=== PATIENT | male | born 1960 | race Caucasian/White ===

== ENCOUNTER 2024-03-01 08:50 | Emergency (ER) | payer MEDICARE, SELFPAY ==
--- NOTE | ~2024-03-01 | CT_ITS ---
EXAMINATION: CT brain wo con DATE: 03/01/2024 12:39 INDICATION: Right eye vision change. TECHNIQUE: Computed tomography (CT) of the head was performed without intravenous contrast. The mA wa s adjusted according to patient size. Iterative reconstruction technique was employed. The dose-lengt h product was 756.67 mGy-cm. COMPARISON: None FINDINGS: There is no intracranial hemorrhage, acute infarction, or abnormal intracranial mass lesion . The ventricles are normal in size. The orbits are normal. There is mild mucosal thickening in the p aranasal sinuses. The mastoid air cells are normal. IMPRESSION: 1. Normal brain. Reviewed, dictated and finalized at location A. OR CARE SPECIALIST IMPRESSION: 1. Normal brain.
[2024-03-01 08:55] VITALS: BP 156/85; PULSE 66; RESP 16; TEMP 36.7; O2SAT 99
--- NOTE | 2024-03-01 10:47 | ED.EYEPROB ---
HPI - Eye Problem General Chief complaint: Eye Problems <Michelle Burks PA-C - Last Filed: 03/02/24 10:36> Stated complaint: visual disturbances <Michelle Burks PA-C - Last Filed: 03/02/24 10:36> Time Seen by Provider: 03/01/24 10:47 <Michelle Burks PA-C - Last Filed: 03/02/24 10:36> Focused HPI: This is a 63 year old male that presents to the ER for visual changes. Ongoing since yesterday. Reports floaters in the right eye. Ongoing since yesterday. Reports it has worsened today. He wears glasses and a contact in his left eye. GENERAL: Well-appearing, well-nourished, and in no acute distress. HEAD: Normocephalic, atraumatic. CHEST: Clear to auscultation. ?No respiratory distress. HEART: Regular rate and rhythm.? NEURO: ?Alert and oriented x3. Patient screened in triage and initial orders placed.? ?Additional care and disposition to be based upon?diagnostic testing and treatment. <Michelle Burks PA-C - Last Filed: 03/02/24 10:36> History of Present Illness HPI Narrative: Agree with the HPI above, I would liked at the patient states that his visual field feels like a curtain is being drawn over at and has a sharp cutoff near the midway point of his visual axis with everything above it being very dark with spots of blackness. Inferior to this he has clear vision at his baseline 20/50 vision. This is localized to the right eye. No peripheral deficits. No headache. States he has a history of floaters but nothing like this has ever happened to him your no restraint of glaucoma. No trauma or injuries. <Miles Dominguez MD - Last Filed: 03/01/24 21:48> Related Data Allergies/adverse reactions: Allergies Allergy/AdvReac Type Severity Reaction Status Date / Time No Known Allergies Allergy Verified 03/01/24 12:56 <Mihcelle Burks PA-C - Last Filed: 03/02/24 10:36> Review of Systems Review of Systems: As reviewed above in HPI <Miles Dominguez MD - Last Filed: 03/01/24 21:48> PMFSH Past Medical History Medical History: Medical History (Updated 03/02/24 @ 10:36 by Michelle Burks PA-C) History of atrial fibrillation History of hyperlipidemia <Michelle Burks PA-C - Last Filed: 03/02/24 10:36> Social History Social History: Social History (Updated 03/02/24 @ 10:35 by Michelle Burks PA-C) Substance use: never <Michelle Burks PA-C - Last Filed: 03/02/24 10:36> Exam Narrative: GENERAL: [Well-appearing, well-nourished, and in no acute distress.] HEAD: [Normocephalic, atraumatic.] EYES: [PERRLA and EOMI.] 20/50 vision OU. ENT: Nares clear, no rhinorrhea or epistaxis. Mucous membranes moist. NECK: Supple. CHEST: [Clear to auscultation. No respiratory distress.] HEART: [Regular rate and rhythm]. No murmur heard. [Normal peripheral pulses.] ABDOMEN: [Soft, nondistended], [nontender], [No rigidity or guarding] EXTREMITIES: Normal range of motion. [No edema.] SKIN: Warm, dry, no rash. NEURO: [No focal deficits]. Alert and oriented [x3.] PSYCH: [Normal mood and affect.] <Miles Dominguez MD - Last Filed: 03/01/24 21:48> Course Vital Signs Vital signs: Vital Signs Temperature 98.0 F 03/01/24 08:55 Pulse Rate 66 03/01/24 08:55 Respiratory Rate 16 03/01/24 08:55 Blood Pressure 156/85 H 03/01/24 08:55 Pulse Oximetry 99 03/01/24 08:55 Oxygen Delivery Room Air 03/01/24 08:55 Temperature 98.0 F 03/01/24 08:55 Pulse Rate 86 03/01/24 13:44 Respiratory Rate 16 03/01/24 13:44 Blood Pressure 149/86 H 03/01/24 13:44 Pulse Oximetry 99 03/01/24 13:44 Oxygen Delivery Room Air 03/01/24 08:55 <Michelle Burks PA-C - Last Filed: 03/02/24 10:36> Vital Signs Temperature 98.0 F 03/01/24 08:55 Pulse Rate 66 03/01/24 08:55 Respiratory Rate 16 03/01/24 08:55 Blood Pressure 156/85 H 03/01/24 08:55 Pulse Oximetry 99 03/01/24 08:55 Oxygen Delivery Room Air 03/01/24 08:55 Temperature 98.0 F 03/01/24 08:55 Pulse Rate 86 03/01/24 13:44 Respiratory Rate 16 03/01/24 13:44 Blood Pressure 149/86 H 03/01/24 13:44 Pulse Oximetry 99 03/01/24 13:44 Oxygen Delivery Room Air 03/01/24 08:55 <Miles Dominguez MD - Last Filed: 03/01/24 21:48> Procedures Other Procedure Procedure 1: Other Procedure: Bedside ultrasound: Right ocular Indication: Vision loss Tegaderm was applied and light pressure was used to view the right orbit and multiple visual axis he has. He does have what appears to be a linear streak that is off the fovea in the posterior right I just above the attachment point to the optic nerve. There also appears to be debris in the posterior vitreous area near the streak artifact. Concern for a retinal detachment. Patient tolerated procedure well without complication <Miles Doimnguez MD - Last Filed: 03/01/24 21:48> MDM - Eye Problem MDM Narrative Medical decision making narrative: 63-year-old male presenting with right eye vision loss. He describes a carton sensation drawn over his right eye with floaters throughout his visual field and superior visual access above the midpoint is dark with spots. Inferior to this on the right eye he states he has clear vision. He has 20/50 OU vision without any changes from his baseline according to himself. The visual floaters are new as well as the cart and drawing sensation. He denies any headache, trauma or injuries. He states that he knows that get worse yesterday after he was shoveling snow. He is not in any acute distress and has normal vital signs aside for some stable hypertension. No tachycardia, fever, hypoxia. Present concerns potentially for retinal detachment given the localized findings in the right eye. Intracranial pathology such as stroke her optic nerve involvement is very unlikely. Bedside ultrasound was conducted and detailed above which shows signs and symptoms of potential retinal detachment with macula off findings and even some debris in the posterior vitreous humor. Patient CT head shows no acute intracranial findings. I discussed with the patient multiple times the findings and plan of care right now is to discuss with ophthalmology at [facility] further recommendations. I was connected with the ophthalmology resident over at [facility] and we spoke over the phone regarding patient's imaging findings, clinical assessment and ultrasound results. I relayed the images to him over text message without identifiers and confirms that patient could very well have a retinal detachment with recommendations to transfer to the emergency department as a time critical action. I was connected with the emergency department physician Dr. Brizuela and we went over patient's case and he accepted the transfer at this time. Patient preferred to go by private vehicle however later this was not an option secondary to patient's family not be able to drive in the weather. Ambulance services were arranged. Patient left the department without any further incident as a direct transfer to the emergency department at [facility] for ophthalmology evaluation. <Miles Dominguez MD - Last Filed: 03/01/24 21:48> Medical Records Attestation: I reviewed the patient's medical records. <Miles Dominguez MD - Last Filed: 03/01/24 21:48> Lab Data Attestation: I reviewed the patient's lab results. <Miles Dominguez MD - Last Filed: 03/01/24 21:48> Imaging Data Attestation: I personally reviewed and interpreted this imaging study as follows: <Miles Dominguez MD - Last Filed: 03/01/24 21:48> My impression: Impressions Head CT 03/01/24 12:40 IMPRESSION: 1. Normal brain. <Miles Dominguez MD - Last Filed: 03/01/24 21:48> Critical Care Time Critical Care Time Critical Care Time: Yes <Miles Dominguez MD - Last Filed: 03/01/24 21:48> Total Critical Care Time: 35 <Miles Dominguez MD - Last Filed: 03/01/24 21:48> Discharge Plan Discharge Clinical Impression: Retinal detachment Qualifiers: Laterality: right Qualified Code(s): H33.21 - Serous retinal detachment, right eye Floaters in visual field Qualifiers: Laterality: right Qualified Code(s): H43.391 - Other vitreous opacities, right eye <Michelle Burks PA-C - Last Filed: 03/02/24 10:36> Patient Disposition: [facility] <Michelle Burks PA-C - Last Filed: 03/02/24 10:36> Condition: Serious <Michelle Burks PA-C - Last Filed: 03/02/24 10:36> Patient Language: Sammarinese <Michelle Burks PA-C - Last Filed: 03/02/24 10:36> Follow-up/Referrals: PHYSICIAN NOT ON STAFF,NONSTAFF [Non-Staff] - <Michelle Burks PA-C - Last Filed: 03/02/24 10:36> Time of Disposition: 16:30 <Michelle Burks PA-C - Last Filed: 03/02/24 10:36> 16:30 <Miles Dominguez MD - Last Filed: 03/01/24 21:48>
[2024-03-01 13:44] VITALS: BP 149/86; PULSE 86; RESP 16; O2SAT 99
--- OUTSIDE RECORDS SUMMARY | 2024-03-07 21:55 | XMS_ITS | Encounter Summary ---
Author Organization [facility] Address [address] [address] Care Team Providers Care Sewing Techniques Demonstrator Name Role Phone Stephanie Prasad RN Unavailable [phone] Lan Bragg DO Unavailable Elias Mayorga MD Primary Care Provider [phone] Elias Mayorga MD Unavailable [phone] Reason for Visit * Reason Onset Date Comments Returned Call 02/01/2024 Encounter Details Date Type Department Care Team (Late st Contact Info) Description 02/01/2024 Telephone [facility] [address] [place] [address], [address] [phone] Heriberto Penn, RN Returned Call Social History Tobacco Use Types Packs/Day Years Used Date Smoking Tobacco: Never Smokeless Tobacco: Never Alcohol Use Standard Drinks/Week Comments Yes 0.8 (1 standard drink = 0.6 oz p ure alcohol) 2 beers a day PHQ-2 Answer Date Recorded Patient Health Questionnaire-2 Score 0 01/30/2024 Sex and Gender Information Value Date Recorded Sex Assigned at Not on file Gender Identity Not on file Sexual Orientation Not on file documented as of this encounter Functional Status Functional Status Response Date of Assess ment Is person deaf or have serious hearing difficult y? No 06/16/2015 Is person blind or have serious difficulty seein g? No 06/16/2015 Does person have serious dif ficulty walking/climbing stairs? No 06/16/2015 Does person have difficulty dressing/bathing? No 06/16/2015 Does person have difficulty doing errands alone? No 06/16/2015 Cognitive Status Response Date of Assessm ent Does person have difficulty concentrating/remembering/making decisions? No 06/16/2015 documented as of this encounter Miscellaneous Notes * Telephone Encounter - Heriberto Penn, RN - 02/01/2024 10:43 AM HOOP RIVETING MACHINE OPERATOR Returned pt call using 2 pt identifiers. Informed pt I spoke with SHIFT SUPERVISOR MELTING Santana who saw him on 01/29. She reviewed chart and told this RN nothing else would be indicated at this time she suggested he finish his Rx and if symptoms are not resolved to return to or follow up with PCP. Reminded pt also he may take longer to resolve since he has Strep and Covid together. Pt verbalized understanding. RIVETING MACHINE OPERATOR documented in this encounter Plan of Treatment Upcoming Encounters Date Type Department Care Team (Late st Contact Info) Description 03/22/2024 9:00 AM HOOP RIVETING MACHINE OPERATOR Office Visit [facility] - Ophthalmology [address] [place] [phone] Ernesto Hawkins MD [address] [place] [phone] documented as of this encounter Visit Diagnoses Not on filedocumented in this encounter Additional Health Concerns Infection Onset Date Last Indicated Resolved Time COVID-19 Confirmed 01/30/2024 01/30/2024 4:33 AM HOOP RIVETING MACHINE OPERATOR documented as of this encounter Care Teams Sewing Techniques Demonstrator Relationship Specialty Start Date End Date Elias Mayorga MD [address] [place] [address] PCP - General Internal Medicine 09/07/14 Elias Mayorga MD [address] [place] [address] PCP - Attributed-[facility] 10/25/22 Stephanie Prasad RN [address] [place] [address] Doctor Of Chiropractic 10/06/13 Lan Bragg DO [address] [place] [address] Orthopedic Surgery 06/02/14 documented as of this encounter
--- OUTSIDE RECORDS SUMMARY | 2024-03-07 21:55 | XMS_ITS | Encounter Summary ---
Author Organization [facility] Address [address] [place] [address] Care Team Providers Care Parboiler Name Role Phone Stephanie Prasad RN Unavailable [phone] Lan Bragg DO Unavailable Elias Mayorga MD Primary Care Provider [phone] Elias Mayorga MD Unavailable [phone] Encounter Details Date Type Department Care Team (Latest Contact Info) Description 08/06/2022 Travel Social History Tobacco Use Types Packs/Day Years Used Date Smoking Tobacco: Never Smokeless Tobacco: Never Alcohol Use Standard Drinks/Week Comments Yes 0.8 (1 standard drink = 0.6 oz p ure alcohol) 2 beers a day PHQ-2 Answer Date Recorded PHQ2 TOTAL SCORE 0 01/17/2021 Sex and Gender Information Value Date Recorded Sex Assigned at Not on file Gender Identity Not on file Sexual Orientation Not on file COVID-19 Exposure Response Date Recorded In the last 10 days, have yo u been in contact with someone who was confirmed or suspected to have Coronavirus/COVID-19? No / Unsure 08/06/2022 1:51 PM CDT documented as of this encounter Functional Status [...] No 06/16/2015 documented as of this encounter Plan of Treatment Upcoming Encounters Date Type Department Care Team (Late st Contact Info) Description 03/22/2024 9:00 AM WIRE REPAIRER Office Visit [facility] - Ophthalmology [address] [place] [phone] Ernesto Hawkins MD [address] [place] [address] documented as of this encounter Visit Diagnoses Not on filedocumented in this encounter Care Teams Parboiler Relationship Specialty Start Date End Date Elias Mayorga MD [address] [facility] [address] [place] [address] PCP - General Internal Medicine 09/07/14 Elias Mayorga MD [address] [place] [address] PCP - Attributed-[facility] 08/25/19 08/12/22 Stephanie Prasad, RN [address] [place] [address] Spinning Frame Changer 10/06/13 Lan Bragg DO [address] [place] [address] Orthopedic Surgery 06/02/14 documented as of this encounter
--- OUTSIDE RECORDS SUMMARY | 2024-03-07 21:55 | XMS_ITS | Clinical Summary ---
Author Organization [facility] Address [address] [place] [address] Care Team Providers Care Patient Service Technician Pst Name Role Phone Stephanie Prasad RN Unavailable [phone] Lan Bragg DO Unavailable Elias Mayorga MD Primary Care Provider [phone] Elias Mayorga MD Unavailable [phone] Source Comments [facility],non-owned Affiliates and Associated Physician Practices is amultiple site organization consisting of ambulatory clinics and hospital sitesin [place], [place], [place] and [place]. This disclosure is being madepursuant to the Care Everywhere program and may not contain all information available regarding this patient. Last updated 17.[facility] Heatmaps Allergies Active Allergy Reactions Criticality Noted Date Comments Naproxen GI Discomfort Low 04/11/2011 Medications * Be aware that medications may not be up to date on this document. Alwaysverify current medications with the patient. Medication Sig Dispensed Refills Start Date End Date Status rosuvastatin (CRESTOR) 10 MG tablet Take 1 (one) tablet by mouth at bedtime Active B Complex Vitamins (VITAMIN B COMPLEX PO) Active Eliquis 5 MG tablet TAKE 1 TABLET BY MOUTH TWICE DAILY 60 tablet 3 01/25/2022 Active ALPRAZolam (Xanax) 0.5 MG tablet Take 1 (one) tablet by mouth at bedtime 09/01/2022 Active flecainide (Tambocor) 150 MG tablet Take 1 (one) tablet by mouth 2 times daily 180 tablet 3 09/20/2022 Active sildenafil (Viagra) 100 MG tablet Take 1 (one) tablet by mouth once as needed 11/11/2023 Active amoxicillin (Amoxil) 500 MG tablet Take 1 (one) tablet by mouth 2 times daily for 10 days 20 tablet 01/30/2024 02/09/2024 Active Problems Problem Noted Date Diagnosed Date Palpitations 11/23/2018 Status post placement of implantable loop record er 06/16/2015 PAF (paroxysmal atrial fibrillation) 11/10/2014 Premature atrial contractions 08/31/2014 SVT (supraventricular tachycardia) 07/28/2014 Trochanteric bursitis 06/14/2014 History of atrial flutter 04/18/2014 Chronic anticoagulation 04/18/2014 Encounter for monitoring flecainide therapy 03/28 Atrial flutter 12/30/2013 Resolved Problems Problem Noted Date Diagnosed Date Resolved Date S/P ablation of atrial flutter 01/11/2014 06/23/2020 Overview (04/21/2014): [place]; Successful and uncomplicated ablation of typical atrial flutter circuit, Encounters Date Type Department Care Team Description 03/02/2024 10:15 AM [facility] Clinical Support [facility] - Ophthalmology [facility] [place] [address] Ernesto Hawkins MD Epiretinal membrane (ERM), bilateral (Primary Dx); PVD (posterior vitreous detachment), right 03/02/2024 9:30 AM [facility] Office Visit [facility] - Ophthalmology [address] [place] [phone] PVD (posterior vitreous detachment), right (Primary Dx); Epiretinal membrane (ERM), bilateral; Cataract of both eyes, unspecified cataract type; Floaters in visual field, right 03/02/2024 Travel 03/01/2024 5:05 PM WIRE HARNESS DESIGN ENGINEER - 03/01/2024 9:41 PM [facility] Emergency [facility] EMERGENCY [facility]PARTMENT [address] [place] [phone] Riley Verduzco MD Vitreous floaters of right eye (Primary Dx); Visual disturbance Discharge Disposition: Home or Self Care 03/01/2024 Ophth Exam [facility] - Ophthalmology [address] [place] [address] Gab Collins MD 03/01/2024 Travel 03/01/2024 Telephone [facility] - Ophthalmology [address] [place] [phone] Gagan Denton, DO Eye Problem 02/01/2024 Telephone [facility] Health Urgent Care [address], [address] [place] [address] Heriberto Babcock, RN Returned Call 02/01/2024 Telephone [facility] Health Urgent Care [address] [place] [address] Joelle Magana APRN-STORE STOCKER Med Question 01/30/2024 11:00 AM WIRE HARNESS DESIGN ENGINEER - 01/30/2024 11:59 PM WIRE HARNESS DESIGN ENGINEER Hospital Encounter [facility] Health [facility]gent [facility] [address] [place] [address] Julieta Dillon, RONEL-STORE STOCKER Discharge Disposition: Home or Self Care 01/30/2024 Travel from Last 3 Months Immunizations Name Administration Dates Next Due Covid Pfizer primary monoval ent 12+ yr 0.3mL Purple cap 03/08/2020,02/17/2020 Family History Medical History Relation Name Comments CAD (Coronary Artery Disease) Father Cancer - Prostate Father Hypertension Mother Relation Name Status Comments Father Mother Social History Tobacco Use Types Packs/Day Years Used Date Smoking Tobacco: Never Smokeless Tobacco: Never Tobacco Cessation:Counseling Given: Not Answered Alcohol Use Standard Drinks/Week Comments Yes 0.8 (1 standard drink = 0.6 oz p ure alcohol) 2 beers a day PHQ-2 Answer Date Recorded Patient Health Questionnaire-2 Score 0 01/30/2024 Sex and Gender Information Value Date Recorded Sex Assigned at Not on file Gender Identity Not on file Sexual Orientation Not on file Last Filed Vital Signs Vital Sign Reading Time Taken Comments Blood Pressure 138/90 03/01/2024 9:40 PM WIRE HARNESS DESIGN ENGINEER Pulse 68 03/01/2024 9:40 PM WIRE HARNESS DESIGN ENGINEER Temperature 36.8 ??C (98.2 ??F) 03/01/2024 4:59 PM CS T Respiratory Rate 15 03/01/2024 9:40 PM WIRE HARNESS DESIGN ENGINEER Oxygen Saturation 98% 03/01/2024 9:40 PM WIRE HARNESS DESIGN ENGINEER Inhaled Oxygen Concentration - - Weight 79.4 kg (175 lb) 01/30/2024 11:58 AM WIRE HARNESS DESIGN ENGINEER Height 172.7 cm (5' 8 ) 09/11/2023 7:03 PM CDT Body Mass Index 26.61 09/11/2023 7:03 PM CDT Plan of Treatment Upcoming Encounters Date Type Department Care Team (Late st Contact Info) Description 03/22/2024 9:00 AM WIRE HARNESS DESIGN ENGINEER Office Visit [facility] - Ophthalmology [address] [place] [phone] Ernesto Hawkins MD [address] [place] [phone] Health Maintenance Due Date Last Done Comments COLOGUARD (AGES 45-75) - COLON CA SCREENING 1960 CT COLONOGRAPHY - COLON CA SCREENING 1960 FIT - COLON CA SCREENING 1960 FLEX SIG - COLON CA SCREENING 1960 MEDICARE AWV ? 12 MONTHS 1960 HIV SCREENING 1973 HEPATITIS C SCREENING 11/22/1976 DTAP/TDAP/TD VACCINES (1 - Tdap) 1977 PNEUMOCOCCAL VACCINE 50+ (1 of 1 - PCV) 2008 ZOSTER VACCINE (1 of 2) 2008 Respiratory Syncytial Virus (RSV) Vaccine Pt: or over 60 yrs (1 - Risk 60-74 years 1-dose series) 2018 COVID-19 VACCINE ( season) 2023 11/17/2021, 07/05/2021, 11/29/2020, Additional history exists DEPRESSION SCREENING 02/25/2024 01/30/2024 COLON MONITORING 06/15/2025 06/16/2015, 06/16/2015 COLONOSCOPY - COLON CA SCREENING 06/15/2025 06/16/2015, 06/16/2015 Colorectal Cancer Screening 06/15/2025 SCREENING FOR DIABETES 09/10/2026 , 04/14/2022, 10/14/2020, Additional history exists INFLUENZA VACCINE Completed 12/18/2023 HEPATITIS B VACCINE Aged Out No longe r eligible based on patient's age to complete this topic HIB VACCINE Aged Out No longer eligi ble based on patient's age to complete this topic HPV VACCINE Aged Out No longer eligi ble based on patient's age to complete this topic MENINGOCOCCAL (Group B) VACCINE Aged Out No longer eligible based on patient's age to complete this topic MENINGOCOCCAL VACCINE Aged Out No kristine kevin eligible based on patient's age to complete this topic Procedures Procedure Name Priority Date/Time Associated Diagnosis Comments RETINAL ANALYSIS OCT Routine 03/02/2024 10:10 AM WIRE HARNESS DESIGN ENGINEER Epiretinal membrane (ERM), bilateral STREP A SCREEN - POCT (IP) URGENT CARE Routine 01/30/2024 12:09 PM WIRE HARNESS DESIGN ENGINEER Cough with exposure to COVID-19 virus SARS-COV-2 (COVID-19) AG (IP) POCT Routine 01/30/2024 12:08 PM WIRE HARNESS DESIGN ENGINEER Cough with exposure to COVID-19 virus COMPREHENSIVE METABOLIC PANEL STAT 09/11/2023 7:00 PM CDT ENDOSCOPY, COLON, SCREENING Routine 06/16/2015 8:27 AM CDT from Last 3 Months or Most Recently Relevant to Health Maintenance Results * RETINAL ANALYSIS OCT (03/02/2024 10:10 AM WIRE HARNESS DESIGN ENGINEER) Anatomical Region Laterality Modality Head External-Camera Photography Narrative 03/02/2024 11:59 AM WIRE HARNESS DESIGN ENGINEER Images from the original result were not included. OD: Trace none central ERM OS: Trace non central ERM Ernesto Hawkins MD OPHTHALMOLOGY [facility] ED ORD W PACS * (ABNORMAL) STREP A SCREEN - POCT (IP) URGENT CARE (01/30/2024 12:09 PM WIRE HARNESS DESIGN ENGINEER) Strep A Rapid POCT Positive(A ) Negative [facility] QC Verified Yes Yes [facility] Throat ENTIRE THROAT (SURFACE REGION OF NECK) / Unknown 01/30/2024 12:09 PM WIRE HARNESS DESIGN ENGINEER Julieta Dillon ASSISTANT PROFESSOR OF THEATER-STORE STOCKER LAB - POINT O F CARE ORDERABLES [facility] [address] [place] [address] * (ABNORMAL) SARS-COV-2 (COVID-19) AG (IP) POCT (01/30/2024 12:08 PM WIRE HARNESS DESIGN ENGINEER) SARS-CoV-2 Ag Positive(A) Negative [facility] Lot # [id number] [facility] Expiration Date [id number] [facility] Instrument Serial Number NA [facility] COVID Internal Control Acceptable Acceptable [facility] Microbiology SPECIMEN FROM NASAL FOSSAE / Unknown 01/30/2024 12:08 PM WIRE HARNESS DESIGN ENGINEER Narrative [facility] - 01/30/2024 12:11 PM WIRE HARNESS DESIGN ENGINEER SARS-CoV-2 antigen testing is authorized for use with nasal (Quidel, Veritor, BinaxNOW, or Madeline) or nasopharyngeal (Madeline) swabs collected from individuals who are suspected of COVID-19 infection by their healthcare provider within the first five days of onset of symptoms. ??False-positive SARS-CoV-2 test results are more likely to occur when disease prevalence is low (less than 1%). False-negative SARS-CoV-2 test results are more likely to occur when disease prevalence is high (greater than 10%). ?? This test has been authorized by the Food and Drug administration (FDA)under an Emergency??Use Authorization (EUA). This test is only authorized for the duration of time the declaration that circumstances exist justifying the authorization of emergency use of in vitro diagnostic tests for detection of SARS-CoV-2 virus and/or diagnosis of COVID-19 infection under section 564(b)(1) of the Act, 21 U.S.C 360bbb-3 (b)(1), unless the authorization is terminated or revoked sooner. Fact Sheets for this EUA assay are available upon request. Negative results should be treated as presumptive and confirmation with a molecular assay, if necessary, for patient management, may be performed. Negative results do not rule out COVID-19 and should not be used as the sole basis for treatment or patient management decisions, including infection control decisions. Negative results should be considered in the context of a patient's recent exposures, history and the presence of clinical signs and symptoms consistent with COVID-19. Julieta L Santana ASSISTANT PROFESSOR OF THEATER-STORE STOCKER LAB - POINT O F CARE ORDERABLES [facility] [address] [place] [address] * (ABNORMAL) COMPREHENSIVE METABOLIC PANEL (09/11/2023 7:00 PM CDT) Pathologist [facility] Glucose 88 70 - 105 mg/dL 09/11/2023 7:27 PM CDT [facility] Sodium 139 136 - 145 mmol/L 09/11/2023 7:27 PM CDT [facility] Potassium 4.3 3.5 - 5.1 mmol/L 09/11/2023 7:27 PM CDT [facility] Chloride 109(H) 98 - 107 mmol/L 09/11/2023 7:27 PM CDT [facility] CO2 19(L) 22 - 29 mmol/L 09/11/2023 7:27 PM CDT [facility] Calcium 9.3 8.4 - 10.4 mg/dL 09/11/2023 7:27 PM CDT [facility] Anion Gap 11 6 - 16 mmol/L 09/11/2023 7:27 PM CDT [facility] BUN 13 7 - 26 mg/dL 09/11/2023 7:27 PM CDT [facility] Creatinine 0.93 0.72 - 1.25 mg/dL 09/11/2023 7:27 PM CDT [facility] Alkaline Phosphatase 57 40 - 150 U/L 09/11/2023 7:27 PM CDT [facility] ALT 27 0 - 55 U/L 09/11/2023 7:27 PM CDT [facility] AST 28 5 - 34 U/L 09/11/2023 7:27 PM CDT [facility] Protein Total 7.3 6.4 - 8.3 gm/dL 09/11/2023 7:27 PM CDT [facility] Albumin 4.3 3.4 - 5.0 gm/dL 09/11/2023 7:27 PM CDT [facility] Bilirubin Total 0.5 0.2 - 1.2 mg/dL 09/11/2023 7:27 PM CDT [facility] eGFR by CKD-EPI >90 >=90 mL/min/1.7 3 m2 09/11/2023 7:27 PM CDT [facility] Blood BLOOD SPECIMEN / Unknown Venipuncture / Unknown 09/11/2023 7:00 PM CDT 09/11/2023 7:11 PM CDT Daniella Greenwood PA-C LAB - CHEMISTRY ORD ERABLES [facility] [address] [place] [address] * ENDOSCOPY, COLON, SCREENING (06/16/2015 8:27 AM CDT) Report Endoscopy POC _ Patient Name: Kenji Camara ?Procedure Date: 06/16/2015 8:27 AM ? Date of : 1960 ?Admit Type: Outpatient Age: 54 ? Gender: Male Attending MD: Shailesh Brar MD _ Procedure: ? Colonoscopy Indications: ? Screening for colorectal malignant neoplasm, This is the ? patient's first colonoscopy Providers: ? Shailesh Brar MD (Doctor) Referring MD: ?Elias Mayorga MD (Referring MD) Medicines: ? Monitored Anesthesia Care Complications: ? No immediate complications. Estimated blood loss: None. _ Procedure: ? Pre-Anesthesia Assessment: ? - Prior to the procedure, a History and Physical was ? performed, and patient medications and allergies were ? reviewed. The patient is competent. The risks and benefits ? of the procedure and the sedation options and risks were ? discussed with the patient. All questions were answered ? and informed consent was obtained. Patient identification ? and proposed procedure were verified by the physician, the ? nurse and the no bake molder in the procedure room. Mental ? Status Examination: alert and oriented. Airway ? Examination: normal oropharyngeal airway and neck ? mobility. Respiratory Examination: clear to auscultation. ? CV Examination: normal. Prophylactic Antibiotics: The ? patient does not require prophylactic antibiotics. Prior ? Anticoagulants: The patient has taken no previous ? anticoagulant or antiplatelet agents. ASA Grade ? Assessment: II - A patient with mild systemic disease. ? After reviewing the risks and benefits, the patient was ? deemed in satisfactory condition to undergo the procedure. ? The anesthesia plan was to use monitored anesthesia care ? (MAC). Immediately prior to administration of medications, ? the patient was re-assessed for adequacy to receive ? sedatives. The heart rate, respiratory rate, oxygen ? saturations, blood pressure, adequacy of pulmonary ? ventilation, and response to care were monitored ? throughout the procedure. The physical status of the ? patient was re-assessed after the procedure. ? After I obtained informed consent, the scope was passed ? under direct vision. Throughout the procedure, the ? patient's blood pressure, pulse, and oxygen saturations ? were monitored continuously. The Colonoscope was ? introduced through the anus and advanced to the cecum, ? identified by appendiceal orifice and ileocecal valve. The ? colonoscopy was performed without difficulty. The patient ? tolerated the procedure well. The quality of the bowel ? preparation was good. ? Findings: ? The digital rectal exam was normal. Pertinent negatives include no ? palpable rectal lesions. ? Non-bleeding internal hemorrhoids were found during retroflexion. The ? hemorrhoids were mild. ? The rectum, sigmoid colon, descending colon, transverse colon, ascending ? colon, cecum, appendiceal orifice and ileocecal valve appeared normal. ? A single small diverticulum was noted in the right colon. _ ? Impression: ?- Non-bleeding internal hemorrhoids. ? - The rectum, sigmoid colon, descending colon, transverse ? colon, ascending colon, cecum, appendiceal orifice and ? ileocecal valve are normal. ? - Single small diverticulum noted in the right colon. ? - No specimens collected. Recommendation: ?- Repeat colonoscopy in 10 years for surveillance. ? - High fiber diet ? - Return to primary care physician as previously scheduled. ? Procedure Code(s): ? --- Professional --- ? 77198, Colonoscopy, flexible; diagnostic, including collection of ? specimen(s) by brushing or washing, when performed (separate procedure) ? --- Technical --- ? 66797, Colonoscopy, flexible; diagnostic, including collection of ? specimen(s) by brushing or washing, when performed (separate procedure) Diagnosis Code(s): ? --- Professional --- ? K64.8, Other hemorrhoids ? Z12.11, Encounter for screening for malignant neoplasm of colon ? --- Technical --- ? K64.8, Other hemorrhoids ? Z12.11, Encounter for screening for malignant neoplasm of colon CPT copyright 2015 [employer]. All rights reserved. The codes documented in this report are preliminary and upon director rehabilitation program review may be revised to meet current compliance requirements. Dr. Shailesh Brar MD Shailesh Brar MD 06/16/2015 8:52:37 AM This report has been signed electronically. Number of Addenda: 0 Note Initiated On: 06/16/2015 8:27 AM [facility] ENDOSCOPY 06/16/2015 8:27 AM CDT Shailesh Brar MD GI PROCEDURE ORDERA BLES Performing Organization Address City/State/[facility] Co de Phone Number [facility] [place] [id number] from Last 3 Months or Most Recently Relevant to Health Maintenance Advance Directives * Full Code (Latest Code Status on File) Date Activated Date Inactivated Comments 09/07/2014 3:07 PM 09/07/2014 4:32 PM * Full Code Date Activated Date Inactivated Comments 07/19/2014 11:36 AM 07/20/2014 8:54 AM * Full Code Date Activated Date Inactivated Comments 01/11/2014 2:09 PM 01/11/2014 7:28 PM * Full Code Date Activated Date Inactivated Comments 10/06/2013 12:14 PM 10/07/2013 11:34 AM Care Teams Patient Service Technician Pst Relationship Specialty Start Date End Date Elias Mayorga MD [address] [place] [address] PCP - General Internal Medicine 09/07/14 Elias Mayorga MD [address] [place] [address] PCP - Attributed-[employer] STL 10/25/22 Stephanie Prasad RN [address] [place] [address] Machine Printer Hose 10/06/13 Lan Bragg DO [address] [place] [address] Orthopedic Surgery 06/02/14
--- OUTSIDE RECORDS SUMMARY | 2024-03-07 21:55 | XMS_ITS | Encounter Summary ---
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 orureterolithiasis. Fecal retention, no bowel obstruction or inflammatory process evident. > Interpreting Provider: Pepito Montanez MD on 09/11/2023 8:42 PM Daniella Greenwood PA-C CT ORDERABLES * (ABNORMAL) COMPREHENSIVE METABOLIC PANEL (09/11/2023 7:00 PM CDT) Glucose 88 70 - 105 mg/dL 09/11/2023 7:27 PM CDT [facility] Sodium 139 136 - 145 mmol/L 09/11/2023 7:27 PM CDT [facility] Potassium 4.3 3.5 - 5.1 mmol/L 09/11/2023 7:27 PM CDT [facility] Chloride 109(H) 98 - 107 mmol/L 09/11/2023 7:27 PM CDT [facility] CO2 19(L) 22 - 29 mmol/L 09/11/2023 7:27 PM CDT [facility] Calcium 9.3 8.4 - 10.4 mg/dL 09/11/2023 7:27 PM CDT [facility] Anion Gap 11 6 - 16 mmol/L 09/11/2023 7:27 PM CDT [facility] BUN 13 7 - 26 mg/dL 09/11/2023 7:27 PM CDT [facility] Creatinine 0.93 0.72 - 1.25 mg/dL 09/11/2023 7:27 PM CDT [facility] Alkaline Phosphatase 57 40 - 150 U/L 09/11/2023 7:27 PM CDT [facility] ALT 27 0 - 55 U/L 09/11/2023 7:27 PM CDT [facility] AST 28 5 - 34 U/L 09/11/2023 7:27 PM CDT [facility] Protein Total 7.3 6.4 - 8.3 gm/dL 09/11/2023 7:27 PM CDT [facility] Albumin 4.3 3.4 - 5.0 gm/dL 09/11/2023 7:27 PM CDT [facility] Bilirubin Total 0.5 0.2 - 1.2 mg/dL 09/11/2023 7:27 PM CDT [facility] eGFR by CKD-EPI >90 >=90 mL/min/1.7 3 m2 09/11/2023 7:27 PM CDT [facility] Blood BLOOD SPECIMEN / Unknown Venipuncture / Unknown 09/11/2023 7:00 PM CDT 09/11/2023 7:11 PM CDT Daniella Greenwood PA-C LAB - CHEMISTRY ORD ERABLES [facility] [address] [place] [address] * CBC W AUTO DIFFERENTIAL (09/11/2023 7:00 PM CDT) WBC 5.3 4.0 - 10.7 x10E9/L 09/11/2023 7:14 PM CDT [facility] RBC Count 4.96 4.30 - 5.80 x10E12/L 09/11/2023 7:14 PM CDT [facility] Hemoglobin 15.2 13.3 - 17.5 g/dL 09/11/2023 7:14 PM CDT [facility] Hematocrit 45.2 38.7 - 51.1 % 09/11/2023 7:14 PM CDT [facility] MCV 91.1 80.0 - 98.0 fL 09/11/2023 7:14 PM CDT [facility] MCH 30.6 26.7 - 33.6 pg 09/11/2023 7:14 PM CDT [facility] MCHC 33.6 31.7 - 36.3 g/dL 09/11/2023 7:14 PM CDT [facility] RDW-CV 12.8 11.3 - 14.8 % 09/11/2023 7:14 PM CDT [facility] Platelet Count 243 150 - 420 x10E9/L 09/11/2023 7:14 PM CDT [facility] MPV 9.7 7.8 - 11.4 fL 09/11/2023 7:14 PM CDT [facility] Neutrophil % 61.5 41.0 - 74.0 % 09/11/2023 7:14 PM CDT [facility] Lymphocyte % 25.1 17.0 - 47.0 % 09/11/2023 7:14 PM CDT [facility] Monocyte % 9.6 3.0 - 11.0 % 09/11/2023 7:14 PM CDT [facility] Eosinophil % 3.2 0.0 - 7.0 % 09/11/2023 7:14 PM CDT [facility] Basophil % 0.4 0.0 - 1.6 % 09/11/2023 7:14 PM CDT [facility] Immature Granulocytes % 0.2 0.0 - 1.0 % 09/11/2023 7:14 PM CDT [facility] Neutrophil Absolute 3.29 1.60 - 7.50 x10E9/L 09/11/2023 7:14 PM CDT [facility] Lymphocyte Absolute 1.34 1.00 - 4.40 x10E9/L 09/11/2023 7:14 PM CDT [facility] Monocyte Absolute 0.51 0.15 - 1.00 x10E9/L 09/11/2023 7:14 PM CDT [facility] Eosinophil Absolute 0.17 0.00 - 0.60 x10E9/L 09/11/2023 7:14 PM CDT [facility] Basophil Absolute 0.02 0.00 - 0.13 x10E9/L 09/11/2023 7:14 PM CDT [facility] Blood BLOOD SPECIMEN / Unknown Venipuncture / Unknown 09/11/2023 7:00 PM CDT 09/11/2023 7:11 PM CDT Daniella Greenwood PA-C LAB - HEMATOLOGY OR DERABLES Performing Organization Address [facility] de Phone Number [facility] [address] [place] [address] documented in this encounter Visit Diagnoses Diagnosis Injury of flank, initial encounter documented in this encounter Administered Medications Inactive Administered Medications - up to 3 most recent administrations Medication Order MAR Action Action Date Dose Rate Site 0.9% NaCl injection 0-10 mL 0-10 mL, Intracatheter, ONCE PRN, Other, Contrast flush, 1 dose, Starting on Lucita 09/11/23 at 2024, Until Lucita 09/11/23 at 2026, For administration with contrast. $ Given 09/11/2023 8:27 PM CDT 10 mL 0.9% NaCl IV flush bag 0-250 mL, Intracatheter, ONCE PRN, Contrast flush, 1 dose, Starting on Lucita 09/11/23 at 2024, Until Lucita 09/11/23 at 7, For administration with contrast $ Given 09/11/2023 8:27 PM CDT 50 mL HYDROcodone-acetaminophen ([place]) 5-325 MG tablet 1 tablet 1 tablet, Oral, NOW, 1 dose, On Lucita 09/11/23 at 1900, Patient preference for lesser PRN pain meds may be honored when the patient requests a less strong medication, a lower dose, or a less intrusive route of administration when the lesser drug, dose and route have been ordered for the patient. This patient request must be documented in the MAR. If both oral and IV options are ordered for the same pain severity, give oral first unless patient cannot tolerate oral intake $ Given 09/11/2023 7:03 PM CDT 1 tablet iopamidol (Isovue 370) 76 % contrast Intravenous, CONTRAST ONCE, Starting on Lucita 09/11/23 at 2024, Until Lucita 09/11/23 at 2235 $ Given - Contrast 09/11/2023 8:26 PM CDT 100 mL ketorolac (Toradol) injection 15 mg 15 mg, Intravenous, NOW, 1 dose, On Lucita 09/11/23 at 2030, Patient preference for lesser PRN pain meds may be honored when the patient requests a less strong medication, a lower dose, or a less intrusive route of administration when the lesser drug, dose and route have been ordered for the patient. This patient request must be documented in the MAR. If both oral and IV options are ordered for the same pain severity, give oral first unless patient cannot tolerate oral intake $ Given 09/11/2023 8:42 PM CDT 15 mg lidocaine (Lidoderm) 5 % patch 1 patch 1 patch, Administer over 12 Hours, EVERY 24 HOURS, First dose on Lucita 09/11/23 at 1930, Until Discontinued, Apply to left flank and remove patch after a max of 12 hours of application within a 24 hour period. $ Applied 09/11/2023 7:03 PM CDT 1 patch Back documented in this encounter Active and Recently Administered Medications Times are shown in CDT. Scheduled Medication Order 09/09/2023 09/10/2023 09/11/2023 HYDROcodone-acetaminophen ([place]) 5-325 MG tablet 1 tablet (COMPLETED) 1 tablet, Oral, NOW, 1 dose, On Lucita 09/11/23 at 1900, Patient preference for lesser PRN pain meds may be honored when the patient requests a less strong medication, a lower dose, or a less intrusive route of administration when the lesser drug, dose and route have been ordered for the patient. This patient request must be documented in the MAR. If both oral and IV options are ordered for the same pain severity, give oral first unless patient cannot tolerate oral intake 1902 ($ Given - Prov ider: Catherine Heard RN) iopamidol (Isovue 370) 76 % contrast Intravenous, CONTRAST ONCE, Starting on Lucita 09/11/23 at 2024, Until Lucita 09/11/23 at 2234 2025 ($ Given - Cont rast - Provider: Kavitha Robbins) ketorolac (Toradol) injection 15 mg (COMPLETED) 15 mg, Intravenous, NOW, 1 dose, On Lucita 09/11/23 at 2029, Patient preference for lesser PRN pain meds may be honored when the patient requests a less strong medication, a lower dose, or a less intrusive route of administration when the lesser drug, dose and route have been ordered for the patient. This patient request must be documented in the MAR. If both oral and IV options are ordered for the same pain severity, give oral first unless patient cannot tolerate oral intake 2041 ($ Given - Prov ider: Marialuisa Shah, Graduate Nurse) lidocaine (Lidoderm) 5 % patch 1 patch 1 patch, Administer over 12 Hours, EVERY 24 HOURS, First dose on Lucita 09/11/23 at 1930, Until Discontinued, Apply to left flank and remove patch after a max of 12 hours of application within a 24 hour period. 1902 ($ Applied - Pr ovider: Catherine Heard RN) PRN Medication Order 09/09/2023 09/10/2023 09/11/2023 0.9% NaCl injection 0-10 mL (COMPLETED) 0-10 mL, Intracatheter, ONCE PRN, Other, Contrast flush, 1 dose, Starting on Lucita 09/11/23 at 2024, Until Lucita 09/11/23 at 2026, For administration with contrast. 2026 ($ Given - Prov ider: Kavitha Robbins) 0.9% NaCl IV flush bag (COMPLETED) 0-250 mL, Intracatheter, ONCE PRN, Contrast flush, 1 dose, Starting on Lucita 09/11/23 at 2024, Until Lucita 09/11/23 at 2026, For administration with contrast 2026 ($ Given - Prov ider: Kavitha Robbins) documented in this encounter Care Teams Employee Welfare Manager Relationship Specialty Start Date End Date Elias Mayorga MD [address] [place] [address] PCP - General Internal Medicine 09/07/14 Elias Mayorga MD [address] [facility] [place] [address] PCP - Attributed-[employer] EHP STL 10/25/22 Stephanie Prasad RN [address] [facility] [place] [address] Design Quality Engineer 10/06/13 Lan Bragg DO [address] [facility] [address] [place] [address] Orthopedic Surgery 06/02/14 documented as of this encounter
--- OUTSIDE RECORDS SUMMARY | 2024-03-07 21:55 | XMS_ITS | Encounter Summary ---
Author Organization [facility] Address [address] [facility] [place] [address] Care Team Providers Care Spa Assistant Manager Name Role Phone Stephanie Prasad RN Unavailable [phone] Lan Bragg DO Unavailable Elias Mayorga MD Primary Care Provider [phone] Elias Mayorga MD Unavailable [phone] Reason for Visit * Reason Onset Date Comments Med Question 02/01/2024 Encounter Details Date Type Department Care Team (Late st Contact Info) Description 02/01/2024 Telephone [facility] [address] [place] [address] [facility]elle Magana [facility] [address] [place] [address] Med Question Social History Tobacco Use Types Packs/Day Years [...] encounter Miscellaneous Notes * Telephone Encounter - Alyse Collinsica - 02/01/2024 10:26 AM CST Who is calling? self If other than self is caller listed on the HIPAA? yes What is the reason for call? Patient called in stating he was seen in the office and he was prescribed a medication however the medication he was prescribed is not what he was told he would be getting he has been taking the medication he stated but it is not working and wants to know if he could get the medication that he was told he would get in the beginning Expected Response from the Clinic? Call back from office Did you notify caller of response or call back timeframe? YES Encounter before 6:30p - same day Encounter after 6:30p - next day IO SET UP WORKER documented in this encounter Plan of Treatment Upcoming Encounters Date Type Department Care Team (Late st Contact Info) Description 03/22/2024 9:00 AM STUDIO SET UP WORKER Office Visit [facility] - Ophthalmology [facility] [place] [address] Ernesto Hawkins MD [address] [place] [phone] documented as of this encounter Visit Diagnoses Not on filedocumented in this encounter Additional Health Concerns Infection Onset Date Last Indicated Resolved Time COVID-19 Confirmed 01/30/2024 01/30/2024 4:33 AM STUDIO SET UP WORKER documented as of this encounter Care Teams Spa Assistant Manager Relationship Specialty [place] [address] [place] [address] [address] [place] [address] PCP - General Internal Medicine 09/07/14 Elias Mayorga MD [address] [place] [address] PCP - Attributed-[employer] EHP STL 10/25/22 Stephanie Prasad RN [address] [place] [address] Bander And Cell[employer]er Machine 10/06/13 Lan Bragg DO [address] [place] [address] Orthopedic Surgery 06/02/14 documented as of this encounter
--- OUTSIDE RECORDS SUMMARY | 2024-03-07 21:55 | XMS_ITS | Encounter Summary ---
Author Organization [facility] Address [address] [facility] [place] [address] Care Team Providers Care Maori Liaison Adviser Name Role Phone Stephanie Prasad RN Unavailable [phone] Lan Bragg DO Unavailable Elias Mayorga MD Primary Care Provider [phone] Reason for Referral * OP/Amb RFL Auth (Routine) - Closed Specialty Diagnoses / Procedures Referred By Contac t Referred To Contact Diagnoses PAF (paroxysmal atrial fibrillation) (HCC) Atypical atrial flutter (HCC) Procedures EKG 12-LEAD Shannon Cordon MD [address] [place] [address] Referral ID Status Reason Start Date Expiration Date Visits Re quested Visits Authorized [id number] Closed 09/19/2022 09/19/2023 1 1 Encounter Details Date Type Department Care Team (Late st Contact Info) Description 09/20/2022 Orders Only [facility] [address], [address] [place] [phone] Shannon Cordon MD [address] [place], [place] [id number] PAF (paroxysmal atrial fibrillation) (HCC) ; Atypical atrial flutter (HCC) Social History Tobacco Use Types Packs/Day Years [...] st Contact Info) Description 03/22/2024 9:00 AM METAL ENGINEERING PROCESS WORKER Office Visit [facility] - Ophthalmology [address] [place] [phone] Ernesto Hawkins MD [facility] [place] [phone] documented as of this encounter Results * EKG 12-LEAD (09/20/2022 3:34 PM CDT) Ventricular Rate 56 BPM [facility] MED GRP MUSE Atrial Rate 56 BPM [facility] ME D GRP MUSE P-R Interval 172 ms S[facility] SL M ED GRP MUSE QRS Duration ms 92 ms SJ S L MED GRP MUSE Q-T Interval ms 418 ms SJ S L MED GRP MUSE QTC Calculation (Bezet) 403 ms S[facility] SL MED GRP MUSE Calculated P [place] 64 degrees SJ SL MED GRP MUSE Calculated R [place] 65 degrees SJ SL MED GRP MUSE Calculated T [place] 38 degrees SJ SL MED GRP MUSE Interpretation EKG Sinus bradycardia Otherwise normal ECG Confirmed by Shannon Cordon ([id number]) on 09/20/2022 4:25:20 PM [facility] MED GRP MUSE 09/20/2022 3:34 PM CDT 09/20/2022 4:25 PM CDT Shannon Cordon MD ECG ORDERABLES [facility] MED GRP MUSE documented in this encounter Visit Diagnoses Diagnosis PAF (paroxysmal atrial fibrillation) (HCC)- Primary Atrial fibrillation Atypical atrial flutter (HCC) Atrial flutter documented in this encounter Care Teams Maori Liaison Adviser Relationship Specialty Start Date End Date Elias Mayorga MD [address] [place] [address] PCP - General Internal Medicine 09/07/14 Stephanie Prasad RN [address] [place] [address] Net Front End Developer 10/06/13 Lan Bragg DO [address] [place] [address] Orthopedic Surgery 06/02/14 documented as of this encounter
--- OUTSIDE RECORDS SUMMARY | 2024-03-07 21:55 | XMS_ITS | Referral Summary ---
Author Organization [facility] Address [address] [place] [address] Care Team Providers Care Township Supervisor Name Role Phone Stephanie Prasad RN Unavailable [phone] Lan Bragg DO Unavailable Elias Mayorga MD Primary Care Provider [phone] Elias Mayorga MD Unavailable [phone] Source Comments [facility],non-owned Affiliates and Associated Physician Practices is amultiple site organization consisting of ambulatory clinics and hospital sitesin [place], [place], [place] and [place]. This disclosure is being madepursuant to the Care Everywhere program and may not contain all information available regarding this patient. Last updated 17.[facility] Encounters Date Type Department Care Team Description 03/02/2024 10:15 AM SENIOR QUALITY MANAGER Clinical Support [facility] - Ophthalmology [address] [place] [address] [phone] Ernesto Hawkins MD Epiretinal membrane (ERM), bilateral (Primary Dx); PVD (posterior vitreous detachment), right 03/02/2024 Travel 03/02/2024 9:30 AM SENIOR QUALITY MANAGER Office Visit [facility] - Ophthalmology [address] [place] [address] [phone] PVD (posterior vitreous detachment), right (Primary Dx); Epiretinal membrane (ERM), bilateral; Cataract of both eyes, unspecified cataract type; Floaters in visual field, right 03/01/2024 Ophth Exam [facility] - Ophthalmology [address] [place] [phone] Gab Collins MD 03/01/2024 Travel 03/01/2024 5:05 PM SENIOR QUALITY MANAGER - 03/01/2024 9:41 PM [facility] Emergency [facility] [address] [place] [address] [phone] Riley Verduzco MD Vitreous floaters of right eye (Primary Dx); Visual disturbance Discharge Disposition: Home or Self Care 03/01/2024 Telephone [facility] - Ophthalmology [address] [place] [phone] Gagan Denton, DO Eye Problem 02/01/2024 Telephone [facility] [address], [address] [place] [address] Heriberto Babcock, RN Returned Call 02/01/2024 Telephone [facility] [address] [place] [address] Joelle Magana APRN-CNP Med Question 01/30/2024 Travel 01/30/2024 11:00 AM SENIOR QUALITY MANAGER - 01/30/2024 11:59 PM [facility] Hospital Encounter [facility] [address] [place] [address] Julieta Dillon, GUEST ADVISOR-CHART PICKER Discharge Disposition: Home or Self Care from Last 3 Months Allergies Active Allergy Reactions Criticality Noted Date [...] uncomplicated ablation of typical atrial flutter circuit, Immunizations Name Administration Dates Next Due Calibrus primary monoval ent 12+ yr 0.3mL Purple cap 03/08/2020,02/17/2020 Social History Tobacco Use Types Packs/Day Years [...] Comments Blood Pressure 138/90 03/01/2024 9:40 PM SENIOR QUALITY MANAGER Pulse 68 03/01/2024 9:40 PM SENIOR QUALITY MANAGER Temperature 36.8 ??C (98.2 ??F) 03/01/2024 4:59 PM CS T Respiratory Rate 15 03/01/2024 9:40 PM SENIOR QUALITY MANAGER Oxygen Saturation 98% 03/01/2024 9:40 PM SENIOR QUALITY MANAGER Inhaled Oxygen Concentration - - Weight 79.4 kg (175 lb) 01/30/2024 11:58 AM SENIOR QUALITY MANAGER Height 172.7 cm (5' 8 ) 09/11/2023 7:03 PM CDT Body Mass Index 26.61 09/11/2023 7:03 PM CDT Functional Status Functional Status Response Date of [...] person have difficulty concentrating/remembering/making decisions? No 06/16/2015 Plan of Treatment Upcoming Encounters Date Type Department Care Team (Late st Contact Info) Description 03/22/2024 9:00 AM SENIOR QUALITY MANAGER Office Visit [facility] - Ophthalmology [address] [place] [phone] Ernesto Hawkins MD [address] [place] [phone] Procedures Procedure Name Priority Date/Time Associated Diagnosis Comments RETINAL ANALYSIS OCT Routine 03/02/2024 10:10 AM SENIOR QUALITY MANAGER Epiretinal membrane (ERM), bilateral STREP A SCREEN - POCT (IP) URGENT CARE Routine 01/30/2024 12:09 PM SENIOR QUALITY MANAGER Cough with exposure to COVID-19 virus SARS-COV-2 (COVID-19) AG (IP) POCT Routine 01/30/2024 12:08 PM SENIOR QUALITY MANAGER Cough with exposure to COVID-19 virus COMPREHENSIVE METABOLIC PANEL STAT 09/11/2023 7:00 PM CDT ENDOSCOPY, COLON, SCREENING Routine 06/16/2015 8:27 AM CDT from Last 3 Months or Most Recently Relevant to Health Maintenance Results * RETINAL ANALYSIS OCT (03/02/2024 10:10 AM SENIOR QUALITY MANAGER) Anatomical Region Laterality Modality Head External-Camera Photography Narrative 03/02/2024 11:59 AM SENIOR QUALITY MANAGER Images from the original result were not included. OD: Trace none central ERM OS: Trace non central ERM Ernesto Hawkins MD OPHTHALMOLOGY [facility] ORD W PACS * (ABNORMAL) STREP A SCREEN - POCT (IP) URGENT CARE (01/30/2024 12:09 PM SENIOR QUALITY MANAGER) Strep A Rapid POCT Positive(A ) Negative [facility] QC Verified Yes Yes [facility] Throat ENTIRE THROAT (SURFACE REGION OF NECK) / Unknown 01/30/2024 12:09 PM SENIOR QUALITY MANAGER Julieta Dillon GUEST ADVISOR-CHART PICKER LAB - POINT O F CARE ORDERABLES Performing Organization Address City/State/[facility] Co de Phone Number [facility] [address] [place] [address] * (ABNORMAL) SARS-COV-2 (COVID-19) AG (IP) POCT (01/30/2024 12:08 PM SENIOR QUALITY MANAGER) [facility] SARS-CoV-2 Ag Positive(A) Negative [facility] Lot # [id number] [facility] Expiration Date [id number] [facility] Instrument Serial Number NA [facility] COVID Internal Control Acceptable Acceptable [facility] Microbiology SPECIMEN FROM NASAL FOSSAE / Unknown 01/30/2024 12:08 PM SENIOR QUALITY MANAGER Narrative [facility] - 01/30/2024 12:11 PM SENIOR QUALITY MANAGER SARS-CoV-2 antigen testing is authorized for use [...] signs and symptoms consistent with COVID-19. Julieta Dillon GUEST ADVISOR-CHART PICKER LAB - POINT O F CARE ORDERABLES Performing Organization Address City/State/[facility] Co de Phone Number [facility] [address] [place] [address] * (ABNORMAL) COMPREHENSIVE METABOLIC PANEL (09/11/2023 7:00 PM CDT) Glucose 88 70 - 105 mg/dL 09/11/2023 7:27 PM CDT [facility] Sodium 139 136 - 145 mmol/L 09/11/2023 7:27 PM CDT [facility] Potassium 4.3 3.5 - 5.1 mmol/L 09/11/2023 7:27 PM CDT [facility] Chloride 109(H) 98 - 107 mmol/L 09/11/2023 7:27 PM CDT [facility] CO2 19(L) 22 - 29 mmol/L 09/11/2023 7:27 PM CDT [facility] Calcium 9.3 8.4 - 10.4 mg/dL 09/11/2023 7:27 PM CDT [facility] Anion Gap 11 6 - 16 mmol/L 09/11/2023 7:27 PM CDT [facility] BUN 13 7 - 26 mg/dL 09/11/2023 7:27 PM CDT [facility] Creatinine 0.93 0.72 - 1.25 mg/dL 09/11/2023 7:27 PM CDT [facility] Alkaline Phosphatase 57 40 - 150 U/L 09/11/2023 7:27 PM CDT [facility] ALT 27 0 - 55 U/L 09/11/2023 7:27 PM CDT [facility] AST 28 5 - 34 U/L 09/11/2023 7:27 PM CDT [facility] Protein Total 7.3 6.4 - 8.3 gm/dL 09/11/2023 7:27 PM CDT [facility] Albumin 4.3 3.4 - 5.0 gm/dL 09/11/2023 7:27 PM CDT [facility] Bilirubin Total 0.5 0.2 - 1.2 mg/dL 09/11/2023 7:27 PM CDT [facility] eGFR by CKD-EPI >90 >=90 mL/min/1.7 3 m2 09/11/2023 7:27 PM CDT [facility] Blood BLOOD SPECIMEN / Unknown Venipuncture / Unknown 09/11/2023 7:00 PM CDT 09/11/2023 7:11 PM CDT Daniella Greenwood PA-C LAB - CHEMISTRY ORD ERABLES [facility] [address] [place] [address] * ENDOSCOPY, COLON, SCREENING (06/16/2015 [...] the physician, the ? nurse and the furniture repairer in the procedure room. Mental ? Status [...] Procedure Code(s): ? --- Professional --- ? 20875, Colonoscopy, flexible; diagnostic, including collection of ? specimen(s) by brushing or washing, when performed (separate procedure) ? --- Technical --- ? 58424, Colonoscopy, flexible; diagnostic, including collection of ? specimen(s) by brushing or washing, when performed (separate procedure) Diagnosis Code(s): ? --- Professional --- ? K64.8, Other hemorrhoids ? Z12.11, Encounter for screening for malignant neoplasm of colon ? --- Technical --- ? K64.8, Other hemorrhoids ? Z12.11, Encounter for screening for malignant neoplasm of colon CPT copyright 2015 [employer]. All rights reserved. The codes documented in this report are preliminary and upon communications program manager review may be revised to meet current compliance requirements. Dr. Shailesh Brar MD Shailesh Brar MD 06/16/2015 8:52:37 AM This report has been signed electronically. Number of Addenda: 0 Note Initiated On: 06/16/2015 8:27 AM [facility] 06/16/2015 8:27 AM CDT Shailesh Brar MD GI PROCEDURE ORDERA BLES [facility] [place] [id number] from Last 3 Months or Most Recently Relevant to Health Maintenance Administered Medications Advance Directives * Full Code (Latest Code [...] 12:14 PM 10/07/2013 11:34 AM Care Teams Township Supervisor Relationship Specialty Start Date End Date Elias Mayorga MD [address] [place] [address] PCP - General Internal Medicine 09/07/14 Elias Mayorga MD [address] [place] [address] PCP - Attributed-[employer] [facility] 10/25/22 Stephanie Prasad RN [address] [facility] [address] [place] [address] Business Technology Teacher 10/06/13 Lan Bragg DO [address] [place] [address] Orthopedic Surgery 06/02/14
--- OUTSIDE RECORDS SUMMARY | 2024-03-07 21:55 | XMS_ITS | Patient Health Summary ---
Author Organization [facility] Address [address] [place] [address] Care Team Providers Care Bariatric Nurse Name Role Phone Stephanie Prasad RN Unavailable [phone] Lan Bragg DO Unavailable Elias Mayorga MD Primary Care Provider [phone] Elias Mayorga MD Unavailable [phone] Note from [facility],non-owned Affiliates and Associated Physician Practices is amultiple site organization consisting of ambulatory clinics and hospital sitesin [place], [place], [place] and [place]. This disclosure is being madepursuant to the Care Everywhere program and may not contain all information available regarding this patient. Last updated 17.[facility] Allergies * Naproxen(GI Discomfort) -Low Criticality Medications * Be aware that medications may not be up to date on this document. Alwaysverify current medications with the patient. * rosuvastatin (CRESTOR) 10 MG tablet Take 1 (one) tablet by mouth at bedtime * B Complex Vitamins (VITAMIN B COMPLEX PO) * Eliquis 5 MG tablet(Started 01/25/2022) TAKE 1 TABLET BY MOUTH TWICE DAILY 3 refills by 01/25/2023 * ALPRAZolam (Xanax) 0.5 MG tablet(Started 09/01/2022) Take 1 (one) tablet by mouth at bedtime * flecainide (Tambocor) 150 MG tablet(Started 09/20/2022) Take 1 (one) tablet by mouth 2 times daily 3 refills by 09/20/2023 * sildenafil (Viagra) 100 MG tablet(Started 11/11/2023) Take 1 (one) tablet by mouth once as needed Ended Medications* amoxicillin (Amoxil) 500 MG tablet(Started 01/30/2024) () Take 1 (one) tablet by mouth 2 times daily for 10 days Active Problems Problem Noted Date Diagnosed Date [...] S/P ablation of atrial flutter 01/11/2014 06/23/2020 Immunizations * Covid Pfizer primary monovalent 12+ yr 0.3mL Purple cap(Given 03/08/2020, 02/17/2020) Social History Tobacco Use Types Packs/Day Years [...] Comments Blood Pressure 138/90 03/01/2024 9:40 PM STRUCTURAL IRON ERECTOR Pulse 68 03/01/2024 9:40 PM STRUCTURAL IRON ERECTOR Temperature 36.8 ??C (98.2 ??F) 03/01/2024 4:59 PM CS T Respiratory Rate 15 03/01/2024 9:40 PM STRUCTURAL IRON ERECTOR Oxygen Saturation 98% 03/01/2024 9:40 PM STRUCTURAL IRON ERECTOR Inhaled Oxygen Concentration - - Weight 79.4 kg (175 lb) 01/30/2024 11:58 AM STRUCTURAL IRON ERECTOR Height 172.7 cm (5' 8 ) 09/11/2023 7:03 PM CDT Body Mass Index 26.61 09/11/2023 7:03 PM CDT Procedures * RETINAL ANALYSIS OCT(Performed 03/02/2024) Performed for Epiretinal membrane (ERM), bilateral * STREP A SCREEN - POCT (IP) URGENT CARE(Performed 01/30/2024) Performed for Cough with exposure to COVID-19 virus * SARS-COV-2 (COVID-19) AG (IP) POCT(Performed 01/30/2024) Performed for Cough with exposure to COVID-19 virus * CT ABDOMEN PELVIS W CONTRAST(Performed 09/11/2023) Performed for Injury of flank, initial encounter * COMPREHENSIVE METABOLIC PANEL(Performed 09/11/2023) * CBC W AUTO DIFFERENTIAL(Performed 09/11/2023) * EKG 12-LEAD(Performed 09/20/2022) Performed for PAF (paroxysmal atrial fibrillation) (HCC), Atypical atrial flutter (HCC) * CARDIAC EKG ORDER(Performed 04/15/2022) * CARDIAC EKG ORDER(Performed 04/15/2022) * XR CHEST 1VW PORTABLE(Performed 04/14/2022) Performed for Palpitations * MAGNESIUM BLOOD(Performed 04/14/2022) * COMPREHENSIVE METABOLIC PANEL(Performed 04/14/2022) * CBC W AUTO DIFFERENTIAL(Performed 04/14/2022) * TROPONIN I(Performed 04/14/2022) * EKG 12-LEAD(Performed 04/14/2022) Performed for Palpitations, Atrial flutter with rapid ventricular response (HCC) * EKG 12-LEAD(Performed 04/14/2022) Performed for Palpitations * EKG 12-LEAD(Performed 11/16/2021) Performed for PAF (paroxysmal atrial fibrillation) (HCC) * EVENT MONITOR(Performed 10/19/2020) Performed for Palpitations * CARDIAC EKG ORDER(Performed 10/17/2020) * EKG 12-LEAD(Performed 10/16/2020) Performed for Palpitations, History of atrial flutter * CT ANGIO BRAIN AND NECK(Performed 10/14/2020) Performed for Acute nonintractable headache, unspecified headache type * CT HEAD WO CONTRAST(Performed 10/14/2020) Performed for Acute nonintractable headache, unspecified headache type * EKG 12-LEAD(Performed 10/14/2020) Performed for Acute nonintractable headache, unspecified headache type * TROPONIN I(Performed 10/14/2020) * COMPREHENSIVE METABOLIC PANEL(Performed 10/14/2020) * CBC W AUTO DIFFERENTIAL(Performed 10/14/2020) * SARS-COV-2 (COVID-19) IN HOUSE(Performed 10/14/2020) * EKG 12-LEAD(Performed 06/23/2020) Performed for PAF (paroxysmal atrial fibrillation) (HCC) * US ABDOMEN LIMITED(Performed 05/12/2019) Performed for Elevated LFTs * EVENT MONITOR(Performed 12/03/2018) Performed for Palpitations * ECHOCARDIOGRAM 2D WITH DOPPLER(Performed 11/30/2018) Performed for Palpitations * EKG 12-LEAD(Performed 11/23/2018) Performed for PAF (paroxysmal atrial fibrillation) (HCC) * LAB RESULTS ORDER(Performed 04/13/2018) * XR ABDOMEN KUB(Performed 07/26/2017) Performed for Constipation, unspecified constipation type * CULTURE URINE+GRAM STAIN(Performed 07/26/2017) Performed for Dysuria * URINALYSIS - POCT (IP) URGENT CARE(Performed 07/26/2017) Performed for Dysuria * ILR DEVICE INTERROGATION(Performed 06/13/2017) Performed for PAF (paroxysmal atrial fibrillation) (HCC), Typical atrial flutter (HCC), Premature atrial contractions, Status post placement of implantable loop recorder * CT ABDOMEN PELVIS WWO CONTRAST(Performed 03/10/2017) Performed for Hematuria syndrome * MRI PELVIS WWO CONTRAST(Performed 01/31/2017) Performed for Prostate cancer (HCC) * CREATININE BLOOD - POINT OF CARE (IP)(Performed 01/31/2017) Performed for Prostate cancer (HCC) * PATHOLOGY/CYTOLOGY REPORT ORDER(Performed 10/27/2016) * ILR CLINIC CHECK(Performed 09/23/2016) Performed for PAF (paroxysmal atrial fibrillation) (HCC), Status post placement of implantable looprecorder * EKG 12-LEAD(Performed 05/31/2016) Performed for Typical atrial flutter (HCC), Paroxysmal atrial fibrillation 11/07/14 seen on loop recorder * ILR DEVICE INTERROGATION(Performed 04/17/2016) Performed for Typical atrial flutter (HCC), Status post placement of implantable loop recorder * XR HIP LEFT 2VW OR MORE(Performed 03/25/2016) Performed for Other chronic pain * ILR DEVICE INTERROGATION(Performed 12/26/2015) Performed for Typical atrial flutter (HCC), Status post placement of implantable loop recorder * ILR DEVICE INTERROGATION(Performed 11/14/2015) Performed for Typical atrial flutter (HCC), Status post placement of implantable loop recorder * ILR DEVICE INTERROGATION(Performed 09/12/2015) Performed for Premature atrial contractions, Status post placement of implantable loop recorder * ILR DEVICE INTERROGATION(Performed 07/18/2015) Performed for Typical atrial flutter (HCC), Status post placement of implantable loop recorder * COLONOSCOPY SCREEN(Performed 06/16/2015) * ENDOSCOPY, COLON, SCREENING(Performed 06/16/2015) * ILR DEVICE INTERROGATION(Performed 05/17/2015) Performed for Paroxysmal atrial fibrillation 11/07/14 seen on loop recorder * ILR DEVICE INTERROGATION(Performed 03/14/2015) Performed for Typical atrial flutter (HCC) * ILR DEVICE INTERROGATION(Performed 12/27/2014) Performed for Typical atrial flutter (HCC) * ILR DEVICE INTERROGATION(Performed 11/07/2014) Performed for Paroxysmal atrial fibrillation 11/07/14 seen on loop recorder * CARDIAC CATH CONSULT(Performed 09/10/2014) * CARDIAC PROCEDURE ORDER(Performed 09/08/2014) * VAS LEFT VENOUS DUPLEX LE(Performed 09/05/2014) Performed for Follow up * VAS LEFT VENOUS DUPLEX LE(Performed 08/29/2014) Performed for Pain of left lower leg * EP LAB CONSULT(Performed 07/21/2014) * CARDIAC EKG ORDER(Performed 07/21/2014) * CARDIAC PROCEDURE ORDER(Performed 07/21/2014) * ECHOCARDIOGRAM TRANSESOPHAGEAL(Performed 07/19/2014) Performed for Typical atrial flutter (HCC) * BASIC METABOLIC PANEL (CALCIUM TOTAL)(Performed 07/12/2014) * CBC W AUTO DIFFERENTIAL(Performed 07/12/2014) * EKG 12-LEAD(Performed 06/19/2014) Performed for Atrial flutter (HCC), Irregular heart beat * XR HIP LEFT 2VW OR MORE(Performed 06/02/2014) Performed for Left hip pain * XR LUMBAR SPINE 2 OR 3VW(Performed 05/10/2014) Performed for Low back pain * EKG 12-LEAD(Performed 04/18/2014) Performed for Atrial flutter (HCC) * CARDIAC EVENT MONITOR(Performed 03/17/2014) Performed for Palpitations * HOLTER MONITOR(Performed 02/09/2014) Performed for Palpitations * EP LAB CONSULT(Performed 01/17/2014) * CARDIAC RHYTHM STRIP ORDER(Performed 01/13/2014) * CARDIAC PROCEDURE ORDER(Performed 01/13/2014) * EKG 12-LEAD(Performed 01/11/2014) Performed for Atrial flutter (HCC) * EKG 12-LEAD(Performed 01/05/2014) Performed for Atrial flutter (HCC) * PT-INR(Performed 01/04/2014) * BASIC METABOLIC PANEL (CALCIUM TOTAL)(Performed 01/04/2014) * CBC W AUTO DIFFERENTIAL(Performed 01/04/2014) * CARDIAC STRESS TEST ORDER(Performed 10/28/2013) * ECHOCARDIOGRAM STRESS(Performed 10/19/2013) Performed for Atrial flutter (HCC) * LIPID PROFILE(Performed 10/18/2013) Performed for Atrial flutter (HCC) * TSH(Performed 10/18/2013) Performed for Atrial flutter (HCC) * CARDIAC RHYTHM STRIP ORDER(Performed 10/08/2013) * ECHOCARDIOGRAM 2D WITH DOPPLER(Performed 10/07/2013) Performed for Atrial flutter (HCC) * TROPONIN I(Performed 10/07/2013) Performed for Atrial flutter (HCC) * CBC W AUTO DIFFERENTIAL(Performed 10/07/2013) Performed for Atrial flutter (HCC) * BASIC METABOLIC PANEL (CALCIUM TOTAL)(Performed 10/07/2013) Performed for Atrial flutter (HCC) * TROPONIN I(Performed 10/06/2013) Performed for Atrial flutter (HCC) * EKG 12-LEAD(Performed 10/06/2013) Performed for Atrial flutter (HCC) * ED CRITICAL CARE(Performed 10/06/2013) Performed for Atrial flutter (HCC) * CT ANGIO CHEST PULM EMBOLISM(Performed 10/06/2013) Performed for Atrial flutter (HCC) * XR CHEST 1VW PORTABLE(Performed 10/06/2013) Performed for SVT (supraventricular tachycardia) * COMPREHENSIVE METABOLIC PANEL(Performed 10/06/2013) * CBC W AUTO DIFFERENTIAL(Performed 10/06/2013) * TROPONIN I(Performed 10/06/2013) * EKG 12-LEAD(Performed 10/06/2013) Performed for SVT (supraventricular tachycardia) * CARDIAC EKG ORDER(Performed 01/15/2013) * XR CHEST 1VW PORTABLE(Performed 01/12/2013) Performed for Rapid heart rate * EKG 12-LEAD(Performed 01/12/2013) Performed for Rapid heart rate * COMPREHENSIVE METABOLIC PANEL(Performed 01/12/2013) * CBC W AUTO DIFFERENTIAL(Performed 01/12/2013) * TROPONIN I(Performed 01/12/2013) * EKG 12-LEAD(Performed 01/12/2013) Performed for Rapid heart rate * MRI KNEE LEFT WO CONTRAST(Performed 08/02/2011) Performed for Arthralgia of knee, left * XR KNEE LEFT 2VW OR LESS(Performed 07/05/2011) Performed for Pain in joint, lower leg * CARDIAC EKG ORDER(Performed 04/12/2011) * CARDIAC EKG ORDER(Performed 04/11/2011) Results * RETINAL ANALYSIS OCT (03/02/2024 10:10 AM STRUCTURAL IRON ERECTOR) Anatomical Region Laterality Modality Head External-Camera Photography Narrative 03/02/2024 11:59 AM STRUCTURAL IRON ERECTOR Images from the original result were not included. OD: Trace none central ERM OS: Trace non central ERM Ernesto Hawkins MD OPHTHALMOLOGY [facility] ED ORD W PACS * (ABNORMAL) STREP A SCREEN - POCT (IP) URGENT CARE (01/30/2024 12:09 PM STRUCTURAL IRON ERECTOR) Pathologist [facility] Strep A Rapid POCT Positive(A ) Negative [facility] QC Verified Yes Yes [facility] Throat ENTIRE THROAT (SURFACE REGION OF NECK) / Unknown 01/30/2024 12:09 PM STRUCTURAL IRON ERECTOR Julieta Dillon STEEL DIE ENGRAVER-MACHINE OPERATOR PACKAGING LAB - POINT O F CARE ORDERABLES [facility] [address] [place] [address] * (ABNORMAL) SARS-COV-2 (COVID-19) AG (IP) POCT (01/30/2024 12:08 PM STRUCTURAL IRON ERECTOR) [facility] SARS-CoV-2 Ag Positive(A) Negative [facility] Lot # [id number] [facility] Expiration Date [id number] [facility] Instrument Serial Number NA [facility] COVID Internal Control Acceptable Acceptable [facility] Microbiology SPECIMEN FROM NASAL FOSSAE / Unknown 01/30/2024 12:08 PM STRUCTURAL IRON ERECTOR Narrative [facility] - 01/30/2024 12:11 PM STRUCTURAL IRON ERECTOR SARS-CoV-2 antigen testing is authorized for use [...] and symptoms consistent with COVID-19. Julieta Dillon STEEL DIE ENGRAVER-MACHINE OPERATOR PACKAGING LAB - POINT O F CARE ORDERABLES [facility] [address] [place] [address] * CT ABDOMEN PELVIS W CONTRAST (09/11/2023 [...] PM Daniella Greenwood PA-C CT ORDERABLES * CBC W AUTO DIFFERENTIAL (09/11/2023 7:00 PM CDT) Only the most recent of8 resultswithin the time period is included. WBC 5.3 4.0 - 10.7 x10E9/L 09/11/2023 7:14 PM CDT [facility] RBC Count 4.96 4.30 - 5.80 x10E12/L 09/11/2023 7:14 PM CDT [facility] Hemoglobin 15.2 13.3 - 17.5 g/dL 09/11/2023 7:14 PM CDT [facility] Hematocrit 45.2 38.7 - 51.1 % 09/11/2023 7:14 PM CDT [facility] MCV 91.1 80.0 - 98.0 fL 09/11/2023 7:14 PM CDT [facility] MCH 30.6 26.7 - 33.6 pg 09/11/2023 7:14 PM CDT [facility] MCHC 33.6 31.7 - 36.3 g/dL 09/11/2023 7:14 PM CDT [facility] RDW-CV 12.8 11.3 - 14.8 % 09/11/2023 7:14 PM CDT [facility] Platelet Count 243 150 - 420 x10E9/L 09/11/2023 7:14 PM CDT [facility] MPV 9.7 7.8 - 11.4 fL 09/11/2023 7:14 PM CDT [facility] Neutrophil % 61.5 41.0 - 74.0 % 09/11/2023 7:14 PM CDT [facility] Lymphocyte % 25.1 17.0 - 47.0 % 09/11/2023 7:14 PM CDT [facility] Monocyte % 9.6 3.0 - 11.0 % 09/11/2023 7:14 PM CDT [facility] Eosinophil % 3.2 0.0 - 7.0 % 09/11/2023 7:14 PM CDT [facility] Basophil % 0.4 0.0 - 1.6 % 09/11/2023 7:14 PM CDT [facility] Immature Granulocytes % 0.2 0.0 - 1.0 % 09/11/2023 7:14 PM CDT [facility] Neutrophil Absolute 3.29 1.60 - 7.50 x10E9/L 09/11/2023 7:14 PM CDT [facility] Lymphocyte Absolute 1.34 1.00 - 4.40 x10E9/L 09/11/2023 7:14 PM CDT [facility] Monocyte Absolute 0.51 0.15 - 1.00 x10E9/L 09/11/2023 7:14 PM CDT [facility] Eosinophil Absolute 0.17 0.00 - 0.60 x10E9/L 09/11/2023 7:14 PM CDT [facility] Basophil Absolute 0.02 0.00 - 0.13 x10E9/L 09/11/2023 7:14 PM CDT [facility] Blood BLOOD SPECIMEN / Unknown Venipuncture / Unknown 09/11/2023 7:00 PM CDT 09/11/2023 7:11 PM CDT Daniella Greenwood PA-C LAB - HEMATOLOGY OR DERABLES [facility] [address] [place] [address] * (ABNORMAL) COMPREHENSIVE METABOLIC PANEL (09/11/2023 7:00 PM CDT) Only the most recent of5 resultswithin the time period is included. Glucose 88 70 - 105 mg/dL 09/11/2023 7:27 PM CDT [facility] Sodium 139 136 - 145 mmol/L 09/11/2023 7:27 PM CDT [facility] Potassium 4.3 3.5 - 5.1 mmol/L 09/11/2023 7:27 PM CDT [facility] Chloride 109(H) 98 - 107 mmol/L 09/11/2023 7:27 PM CDT [facility] CO2 19(L) 22 - 29 mmol/L 09/11/2023 7:27 PM CDT [facility] Calcium 9.3 8.4 - 10.4 mg/dL 09/11/2023 7:27 PM CDT [facility] Anion Gap 11 6 - 16 mmol/L 09/11/2023 7:27 PM CDT [facility] BUN 13 7 - 26 mg/dL 09/11/2023 7:27 PM CDT [facility] Creatinine 0.93 0.72 - 1.25 mg/dL 09/11/2023 7:27 PM CDT [facility] Alkaline Phosphatase 57 40 - 150 U/L 09/11/2023 7:27 PM CDT [facility] ALT 27 0 - 55 U/L 09/11/2023 7:27 PM CDT [facility] AST 28 5 - 34 U/L 09/11/2023 7:27 PM CDT [facility] Protein Total 7.3 6.4 - 8.3 gm/dL 09/11/2023 7:27 PM CDT [facility] Albumin 4.3 3.4 - 5.0 gm/dL 09/11/2023 7:27 PM CDT [facility] Bilirubin Total 0.5 0.2 - 1.2 mg/dL 09/11/2023 7:27 PM CDT [facility] eGFR by CKD-EPI >90 >=90 mL/min/1.7 3 m2 09/11/2023 7:27 PM CDT [facility] Blood BLOOD SPECIMEN / Unknown Venipuncture / Unknown 09/11/2023 7:00 PM CDT 09/11/2023 7:11 PM CDT Daniella Greenwood PA-C LAB - CHEMISTRY ORD ERABLES [facility] [address] [place] [address] * EKG 12-LEAD (09/20/2022 3:34 PM CDT) Only the most recent of17 resultswithin the time period is included. Ventricular Rate 56 BPM SJ SL MED GRP MUSE Atrial Rate 56 BPM SJ SL ME D GRP MUSE P-R Interval 172 ms SJ SL M ED GRP MUSE QRS Duration ms 92 ms SJ S L MED GRP MUSE Q-T Interval ms 418 ms SJ S L MED GRP MUSE QTC Calculation (Bezet) 403 ms SJ SL MED GRP MUSE Calculated P [place] 64 degrees SJ SL MED GRP MUSE Calculated R [place] 65 degrees SJ SL MED GRP MUSE Calculated T [place] 38 degrees SJ SL MED GRP MUSE Interpretation EKG Sinus bradycardia Otherwise normal ECG Confirmed by Shannon Valadez ([id number]) on 09/20/2022 4:25:20 PM [facility] SL MED GRP MUSE 09/20/2022 3:34 PM CDT 09/20/2022 4:25 PM CDT Shannon Valadez MD ECG ORDERABLES [facility] SL MED GRP MUSE * CARDIAC EKG ORDER (04/15/2022 8:38 PM STRUCTURAL IRON ERECTOR) Only the most recent of7 resultswithin the time period is included. Narrative 04/15/2022 8:38 PM STRUCTURAL IRON ERECTOR Ordered by an unspecified provider. Scanned Document CARDIAC SERVICES ORD ERABLES * XR CHEST 1VW PORTABLE (04/14/2022 1:20 PM STRUCTURAL IRON ERECTOR) Only the most recent of3 resultswithin the time period is included. Anatomical Region Laterality Modality Chest Radiographic Aubree ging 04/14/2022 1:21 PM STRUCTURAL IRON ERECTOR Impressions 04/14/2022 1:21 PM STRUCTURAL IRON ERECTOR IMPRESSION: There is no evidence of active cardiopulmonary disease. > Interpreting Provider: Rohit Maldonado MD on 04/14/2022 1:21 PM Narrative 04/14/2022 1:21 PM STRUCTURAL IRON ERECTOR PROCEDURE: ??XR CHEST 1VW PORTABLE, DATE/TIME OF EXAM: ??04/14/2022 1:20 PM, LOCATION ??[facility] INDICATION: R00.2: Palpitations ADDITIONAL CLINICAL INFORMATION: Ordering Provider Reason For Exam: Technologist Note: Additional: COMPARISON: Chest 10/06/2013 FINDINGS: AP portable upright view of the chest demonstrates a normal size heart. There are no infiltrates effusions or vascular congestion. Osseous structures are within normal limits. Procedure Note Rohit Maldonado MD - 04/14/2022 PROCEDURE: XR CHEST 1VW PORTABLE, DATE/TIME OF EXAM: 04/14/2022 1:20PM, LOCATION [facility] INDICATION: R00.2: Palpitations ADDITIONAL CLINICAL INFORMATION: Ordering Provider Reason For Exam: Technologist Note: Additional: COMPARISON: Chest 10/06/2013 FINDINGS: AP portable upright view of the chest demonstrates a normal size heart. There are no infiltrates effusions or vascular congestion. Osseous structures are within normal limits. IMPRESSION: There is no evidence of active cardiopulmonary disease. > Interpreting Provider: Rohit Maldonado MD on 04/14/2022 1:21 PM Andrez Calles MD DIAGNOSTIC IMAGIN G ORDERABLES * TROPONIN I (04/14/2022 1:12 PM STRUCTURAL IRON ERECTOR) Only the most recent of6 resultswithin the time period is included. Troponin I <0.010 <0.038 ng/mL 04/14/2022 1:38 PM STRUCTURAL IRON ERECTOR [facility] Blood BLOOD SPECIMEN / Unknown Venipuncture / Unknown 04/14/2022 1:12 PM STRUCTURAL IRON ERECTOR 04/14/2022 1:17 PM STRUCTURAL IRON ERECTOR Andrez Calles MD LAB - CHEMISTRY O RDERABLES Performing Organization Address City/[facility]/ZIP Co de Phone Number [facility] [address] [place] [address] * MAGNESIUM BLOOD (04/14/2022 1:12 PM STRUCTURAL IRON ERECTOR) Pathologist [facility] Magnesium 2.1 1.6 - 2.6 mg/dL 04/14/2022 1:35 PM STRUCTURAL IRON ERECTOR [facility] Blood BLOOD SPECIMEN / Unknown Venipuncture / Unknown 04/14/2022 1:12 PM STRUCTURAL IRON ERECTOR 04/14/2022 1:17 PM STRUCTURAL IRON ERECTOR Andrez Calles MD LAB - CHEMISTRY O RDERABLES [facility] [address] [place] [address] * EVENT MONITOR (10/19/2020) Only the most recent of2 resultswithin the time period is included. 10/19/2020 Narrative 10/19/2020 Shannon Valadez MD ? 10/31/2020 ??6:34 AM [facility] CARDIAC EVENT MONITOR ?? Pts name: Serg Maldonado : 1960 Ordering Physician: Dr. Valadez Reading Physician: Dr. Valadez Date of service: 10/19/20 and continued until 10/25/20. Time monitored: 6 days, 1 hours, 34 minutes Indication/Symptoms: Palpitations Event monitor was obtained to evaluate the patient for cardiac dysrhythmias. SUMMARY: -Predominant rhythm is normal sinus rhythm with heart rates ranging between 50 to 120 beats per minute. Average heart rate was 72 beats per minute. - There were no episodes of sinus pauses of more than 3 seconds during this event monitoring period. - There were no episodes of atrial fibrillation or flutter noted during this event monitoring period. - There were 818 documented premature atrial complexes, PAC burden of <1%. - There were 1034 documented premature ventricular complexes, PVC burden of <1%. - Conduction Abnormalities:0 - 9 Events were transmitted. 1 symptomatic; 8 device triggered INTERPRETATION: Unremarkable cardiac monitoring with NSR and rare APCs and PVCs. RECOMMENDATIONS: We will consider removing and replacing his loop recorder. Jn Valadez MD ?? Procedure Note Shannon Valadez MD - 10/27/2020 12:13 PM CDT [facility] CARDIAC EVENT MONITOR Pts name: Serg Maldonado : 1960 Ordering Physician: Dr. Bravo Palmer Physician: Dr. Valadez Date of service: 10/19/20 and continued until 10/25/20. Time monitored: 6 days, 1 hours, 34 minutes Indication/Symptoms: Palpitations Event monitor was obtained to evaluate the patient for cardiacdysrhythmias. SUMMARY: -Predominant rhythm is normal sinus rhythm with heart rates rangingbetween 50 to 120 beats per minute. Average heart rate was 72 beats perminute. - There were no episodes of sinus pauses of more than 3 seconds duringthis event monitoring period. - There were no episodes of atrial fibrillation or flutter noted duringthis event monitoring period. - There were 818 documented premature atrial complexes, PAC burden of <1%. - There were 1034 documented premature ventricular complexes, PVC burdenof <1%. - Conduction Abnormalities:0 - 9 Events were transmitted. 1 symptomatic; 8 device triggered INTERPRETATION: Unremarkable cardiac monitoring with NSR and rare APCs andPVCs. RECOMMENDATIONS: We will consider removing and replacing his loop recorder. Jn Valadez MD Shannon Valadez MD CARDIAC SERVICES ORDERABLES * CT ANGIO BRAIN AND NECK (10/14/2020 7:42 AM CDT) Anatomical Region Laterality Modality Head Computed Tomogra phy 10/14/2020 8:10 AM CDT Impressions 10/14/2020 8:13 AM CDT Unremarkable neck CTA. Brain: The internal carotid arteries, middle cerebral arteries, right anterior cerebral arteries, vertebral arteries, posterior cerebral arteries, basilar artery, and branch vessels of the [place] are widely patent without evidence of vessel stenosis or vessel occlusion. There is absence or atrophy of the left A1 segment. The distal bilateral anterior cerebral arteries are unremarkable. No intracranial aneurysms are identified. There are no gross arterio-venous malformations. Impression: Unremarkable brain CTA *Reading Radiologist: Parish Egan on 10/14/2020 at 8:13 AM Narrative 10/14/2020 8:[address] angiography neck CT angiography head CT 3-D reconstructed images on independent workstation Clinical Indication: Severe headaches. Vomiting. Head pain. Technique: Axial CT images from the transverse aortic arch through the cranial vertex were obtained following the administration of 80 cc Isovue-370 intravenous contrast. Multiplanar reformatted, maximum intensity projection, and volume rendered reconstructions of the arterial vasculature of the neck and brain was performed on an independent workstation. The stenosis calculations are based on NASCET criteria. Findings: Neck: There is wide patency of the common carotid, internal carotid, external carotid, and vertebral arteries. There is no evidence of vessel stenosis or vessel occlusion. Procedure Note Parish Egan MD - 10/14/[address] angiography head CT 3-D reconstructed images on independent workstation Clinical Indication: Severe headaches. Vomiting. Head pain. Technique: Axial CT images from the transverse aortic arch through the cranial vertex were obtained following the administration of 80 cc Isovue-370 intravenous contrast. Multiplanar reformatted, maximum intensity projection, and volume rendered reconstructions of the arterial vasculature of the neck and brain was performed on an independent workstation. The stenosis calculations are based on NASCET criteria. Findings: Neck: There is wide patency of the common carotid, internal carotid, external carotid, and vertebral arteries. There is no evidence of vessel stenosis or vessel occlusion. IMPRESSION Unremarkable neck CTA. Brain: The internal carotid arteries, middle cerebral arteries, right anterior cerebral arteries, vertebral arteries, posterior cerebral arteries, basilar artery, and branch vessels of the [place] are widely patent without evidence of vessel stenosis or vessel occlusion. There is absence or atrophy of the left A1 segment. The distal bilateral anterior cerebral arteries are unremarkable. No intracranial aneurysms are identified. There are no gross arterio-venous malformations. Impression: Unremarkable brain CTA *Reading Radiologist: Parish Egan on 10/14/2020 at 8:13 AM Parish Kim MD CT ORDERABLES * CT HEAD NON CONTRAST - intracranial hemorrhage (10/14/2020 7:41 AM CDT) Anatomical Region Laterality Modality Head Computed Tomogra phy 10/14/2020 8:08 AM CDT Impressions 10/14/2020 8:10 AM CDT No acute intracranial pathology *Reading Radiologist: Parish Egan on 10/14/2020 at 8:10 AM Narrative 10/14/2020 8:[address] BRAIN NONCONTRAST CLINICAL INDICATION: Severe headaches. Vomiting. Head pain. TECHNIQUE: 5 mm images through the brain noncontrast. COMPARISON: None FINDINGS The ventricles, gyri and sulci are appropriate for age. There is no evidence of midline shift, mass, mass effect or acute intracranial hemorrhage. No definite acute cortical infarct is present. The calvarium is intact. There is ethmoid sinus thickening. Procedure Note Parish Egan MD - 10/14/2020 CT BRAIN NONCONTRAST CLINICAL INDICATION: Severe headaches. Vomiting. Head pain. TECHNIQUE: 5 mm images through the brain noncontrast. COMPARISON: None FINDINGS The ventricles, gyri and sulci are appropriate for age. There is no evidence of midline shift, mass, mass effect or acute intracranial hemorrhage. No definite acute cortical infarct is present. The calvarium is intact. There is ethmoid sinus thickening. IMPRESSION No acute intracranial pathology *Reading Radiologist: Parish Egan on 10/14/2020 at 8:10 AM Parish Kim MD CT ORDERABLES * SARS-COV-2 (COVID-19) INTERNAL (10/14/2020 6:57 AM CDT) COVID-19 PCR Not detected Not detected 10/14/2020 6:31 PM CDT [facility] Microbiology SPECIMEN FROM NASOPHARYNGEAL STRUCTURE / Unknown Collection / Unknown 10/14/2020 6:57 AM CDT 10/14/2020 7:05 AM CDT Narrative [facility] - 10/14/2020 6:31 PM CDT This nucleic acid amplification assay performance was validated by [facility]. This test has been authorized by the Food and Drug administration (FDA)under an Emergency??Use Authorization (EUA). This test has been validated in accordance with the FDA's guidance document Policy for Diagnostic Testing in Laboratories Certified to perform High Complexity Testing under CLIA prior to Emergency Use Authorization for Coronavirus Disease-2019 during the Public Health Emergency issued on April 24, 2019. FDA independent review of this validation is pending. This test is only authorized for the [...] this EUA assay are available upon request. Parish Kim MD LAB - MICROBIOLOGY O RDERABLES [facility] [address] [place] [address], [facility] [phone] * US ABDOMEN LIMITED (05/12/2019 7:35 AM CDT) Anatomical Region Laterality Modality Abdomen Ultrasound 05/12/2019 9:00 AM CDT Impressions 05/12/2019 9:03 AM CDT UNREMARKABLE RIGHT UPPER QUADRANT ULTRASOUND. *Reading Radiologist: Tg Patel MD on 05/12/2019 at 9:03 AM Narrative 05/12/2019 9:03 AM CDT RIGHT UPPER QUADRANT ULTRASOUND INDICATION:Increased liver function tests TECHNIQUE: Grayscale images of the right upper quadrant were performed. There is no evidence of cholelithiasis. The liver is normal in size and echogenicity. Common bile duct measures 5mm. The visualized portions of the pancreas are unremarkable. Main portal vein is patent. Hepatic veins are patent. The right kidney is of normal size, echogenicity and renal cortical thickness and measures 10.8 cm x 5.6 cm x 4.5 cm. Small stone is in question midpole. Procedure Note Tg Patel MD - 05/12/2019 RIGHT UPPER QUADRANT ULTRASOUND INDICATION:Increased liver function tests TECHNIQUE: Grayscale images of the right upper quadrant were performed. There is no evidence of cholelithiasis. The liver is normal in size and echogenicity. Common bile duct measures 5mm. The visualized portions of the pancreas are unremarkable. Main portal vein is patent. Hepatic veins are patent. The right kidney is of normal size, echogenicity and renal cortical thickness and measures 10.8 cm x 5.6 cm x 4.5 cm. Small stone is in question midpole. IMPRESSION UNREMARKABLE RIGHT UPPER QUADRANT ULTRASOUND. *Reading Radiologist: Tg Patel MD on 05/12/2019 at 9:03 AM Elias Mayorga MD US ORDERABLES * ECHOCARDIOGRAM 2D WITH DOPPLER (11/30/2018 3:09 PM CDT) Only the most recent of2 resultswithin the time period is included. 11/30/2018 3:09 PM CDT Narrative [facility] - 12/02/2018 1:20 PM CDT [facility] [address] [place] [address] Transthoracic Echocardiogram 2D, M-mode, Doppler, and Color Doppler Patient: SERG MALDONADO MR number: [id number] Height: 69 in Weight: 187.7 lb BSA: 2.01 m?? Study date: 30-Nov-2018 : 1960 Age: 58 years Gender: Male Race: 2 Allergies: NAPROXEN REFERRING PHYSICIAN: ??SHANNON VALADEZ CORE WINDER: ??Inderjit PALMER LEATHER GRAINER: ??Ronnie Dorado MD Summary: - ??Clinical question: - ??PALPITATIONS - ??History: - ??A-FLUTTER,HX OF ABLATION,SVT,PAC,PAF,PALPITATIONS,LOOP RECORDER IMPLANT. - ??Procedure information: - ??STRAIN RATE G peak SL(A2C) was -20.79 %. G peak SL(A4C) was -19.17 %. G peak SL(APLAX) was -21.05 %. G peak SL(Avg) was -20.34 %. - ??Left ventricle: - ??Systolic function was normal. Ejection fraction was estimated in the range of 55 % to 60 %. - ??There were no regional wall motion abnormalities. - ??Wall thickness was normal. - ??Mitral valve: - ??There was mild regurgitation. - ??Left atrium: - ??The atrium was mildly dilated. - ??Pulmonary arteries: - ??Systolic pressure was mildly increased. Estimated peak pressure was in the range of 40 mmHg to 45 mmHg. - ??Tricuspid valve: - ??There was mild regurgitation. Summary Measurements CW measurements: Mitral Valve: ?? MR Vmax was 5.43 m/s. Indications: PALPITATIONS History: Prior history: A-FLUTTER,HX OF ABLATION,SVT,PAC,PAF,PALPITATIONS,LOOP RECORDER IMPLANT. Procedure: The study was performed in the [facility] [place]. This was a routine study. STRAIN RATE G peak SL(A2C) was -20.79 %. G peak SL(A4C) was -19.17 %. G peak SL(APLAX) was -21.05 %. G peak SL(Avg) was -20.34 %. The transthoracic approach was used. The study included complete 2D imaging, M-mode, complete spectral Doppler, and color Doppler. The heart rate was 79 bpm. Systolic blood pressure was 107 mmHg. Diastolic blood pressure was 50 mmHg. Images were obtained from the parasternal, apical, subcostal, and suprasternal notch acoustic windows. Image quality was adequate. Left ventricle: Size was normal. Systolic function was normal. Ejection fraction was estimated in the range of 55 % to 60 %. There were no regional wall motion abnormalities. Wall thickness was normal. Aortic valve: The valve was trileaflet. Leaflets exhibited mildly increased thickness and normal cuspal separation. Doppler: There was very mild stenosis. There was no regurgitation. Aorta: The root exhibited normal size. Mitral valve: Valve structure was normal. There was normal leaflet separation. There was systolic bowing of the anterior leaflet, but without diagnostic evidence for prolapse. Doppler: The transmitral velocity was within the normal range. There was no evidence for stenosis. There was mild regurgitation. Left atrium: The atrium was mildly dilated. Right ventricle: The size was normal. Systolic function was normal. Wall thickness was normal. Pulmonic valve: Leaflets exhibited normal thickness, no calcification, and normal cuspal separation. Doppler: There was no regurgitation. Pulmonary artery: The size was normal. Doppler: Systolic pressure was mildly increased. Estimated peak pressure was in the range of 40 mmHg to 45 mmHg. Tricuspid valve: The valve structure was normal. There was normal leaflet separation. Doppler: The transtricuspid velocity was within the normal range. There was no evidence for tricuspid stenosis. There was mild regurgitation. Right atrium: Size was at the upper limits of normal. Pericardium: The pericardium was normal in appearance. System measurement tables 2D Ao Diam: 2.79 cm LA Diam: 3.88 cm %FS: 30.47 % EF(Teich): 57.72 % IVSd: 0.85 cm LVIDd: 4.94 cm LVIDs: 3.43 cm LVOT Diam: 2.3 cm LVPWd: 0.98 cm RVIDd: 3.77 cm Ao Arch Diam: 3.61 cm Ao abd AP: 1.87 cm Ao asc: 2.99 cm G peak SL(A2C): -20.79 % G peak SL(A4C): -19.17 % G peak SL(APLAX): -21.05 % G peak SL(Avg): -20.34 % IVC: 1.36 cm LAAs A4C: 16.37 cm2 LV Major: 6.03 cm LV Minor: 3.68 cm LVEF_2Ch_Q: 56.78 % LVEF_4Ch_Q: 65.64 % RAAs: 15.31 cm2 CW AV VTI: 28.01 cm AV Vmax: 1.61 m/s AV Vmean: 1.03 m/s AV maxP.42 mmHg AV meanP.03 mmHg MR Vmax: 5.43 m/s TR Vmax: 2.64 m/s TR maxP.85 mmHg RAP: 5 mmHg MM Ao Diam: 3.37 cm AV Cusp: 1.91 cm LA Diam: 4.13 cm %FS: 32.1 % EF(Teich): 59.61 % IVSd: 1.01 cm IVSs: 1.04 cm LVIDd: 5.62 cm LVIDs: 3.82 cm LVPWd: 1.01 cm LVPWs: 1.08 cm TAPSE: 2.29 cm PW DUNCAN (VTI): 3.1 cm2 DUNCAN Vmax: 3.18 cm2 LVOT Vmax: 1.24 m/s LVOT maxP.15 mmHg MV A Maverick: 0.85 m/s MV E Maverick: 1.04 m/s MV E/A Ratio: 1.23 MV PHT: 45.78 ms MVA By PHT: 4.81 cm2 PV VTI: 21.47 cm PV Vmax: 1.21 m/s PV maxP.83 mmHg RVSP: 32.85 mmHg LATERAL E/E: 8.68 LVOT VTI: 20.99 cm LVOT Vmean: 0.78 m/s LVOT meanP.84 mmHg Lateral E': 0.12 m/s PAEDP: 12.92 mmHg PRend P.92 mmHg PRend Vmax: 1.41 m/s RV S: 0.17 m/s SEPATLE/E: 9.09 SEPTALE': 0.11 m/s Prepared and signed by Ronnie Dorado MD Signed 02-Dec-2018 13:16:38 Procedure Note Ronnie Dorado MD - 12/02/2018 [facility] [address] [place] [address] Transthoracic Echocardiogram 2D, M-mode, Doppler, and Color Doppler Patient: SERG MALDONADO MR number: [id number] Height: 69 in Weight: 187.7 lb BSA: 2.01 m?? Study date: 30-Nov-2018 : 1960 Age: 58 years Gender: Male Race: 2 Allergies: NAPROXEN REFERRING PHYSICIAN: SHANNON VALADEZ CORE WINDER: Inderjit Ro READING LEATHER GRAINER: Ronnie Dorado MD Summary: - Clinical question: - PALPITATIONS - History: - A-FLUTTER,HX OF ABLATION,SVT,PAC,PAF,PALPITATIONS,LOOP RECORDER IMPLANT. - Procedure information: - STRAIN RATE G peak SL(A2C) was -20.79 %. G peak SL(A4C) was -19.17 %. G peak SL(APLAX) was -21.05 %. G peak SL(Avg) was -20.34 %. - Left ventricle: - Systolic function was normal. Ejection fraction was estimated in the range of 55 % to 60 %. - There were no regional wall motion abnormalities. - Wall thickness was normal. - Mitral valve: - There was mild regurgitation. - Left atrium: - The atrium was mildly dilated. - Pulmonary arteries: - Systolic pressure was mildly increased. Estimated peak pressure was in the range of 40 mmHg to 45 mmHg. - Tricuspid valve: - There was mild regurgitation. Summary Measurements CW measurements: Mitral Valve: MR Vmax was 5.43 m/s. Indications: PALPITATIONS History: Prior history: A-FLUTTER,HX OF ABLATION,SVT,PAC,PAF,PALPITATIONS,LOOP RECORDER IMPLANT. Procedure: The study was performed in the [facility] [place]. This was a routine study. STRAIN RATE G peak SL(A2C) was -20.79 %. G peak SL(A4C) was -19.17 %. G peak SL(APLAX) was -21.05 %. G peak SL(Avg) was -20.34 %. The transthoracic approach was used. The study included complete 2D imaging, M-mode, complete spectral Doppler, and color Doppler. The heart rate was 79 bpm. Systolic blood pressure was 107 mmHg. Diastolic blood pressure was 50 mmHg. Images were obtained from the parasternal, apical, subcostal, and suprasternal notch acoustic windows. Image quality was adequate. Left ventricle: Size was normal. Systolic function was normal. Ejection fraction was estimated in the range of 55 % to 60 %. There were no regional wall motion abnormalities. Wall thickness was normal. Aortic valve: The valve was trileaflet. Leaflets exhibited mildly increased thickness and normal cuspal separation. Doppler: There was very mild stenosis. There was no regurgitation. Aorta: The root exhibited normal size. Mitral valve: Valve structure was normal. There was normal leaflet separation. There was systolic bowing of the anterior leaflet, but without diagnostic evidence for prolapse. Doppler: The transmitral velocity was within the normal range. There was no evidence for stenosis. There was mild regurgitation. Left atrium: The atrium was mildly dilated. Right ventricle: The size was normal. Systolic function was normal. Wall thickness was normal. Pulmonic valve: Leaflets exhibited normal thickness, no calcification, and normal cuspal separation. Doppler: There was no regurgitation. Pulmonary artery: The size was normal. Doppler: Systolic pressure was mildly increased. Estimated peak pressure was in the range of 40 mmHg to 45 mmHg. Tricuspid valve: The valve structure was normal. There was normal leaflet separation. Doppler: The transtricuspid velocity was within the normal range. There was no evidence for tricuspid stenosis. There was mild regurgitation. Right atrium: Size was at the upper limits of normal. Pericardium: The pericardium was normal in appearance. System measurement tables 2D Ao Diam: 2.79 cm LA Diam: 3.88 cm %FS: 30.47 % EF(Teich): 57.72 % IVSd: 0.85 cm LVIDd: 4.94 cm LVIDs: 3.43 cm LVOT Diam: 2.3 cm LVPWd: 0.98 cm RVIDd: 3.77 cm Ao Arch Diam: 3.61 cm Ao abd AP: 1.87 cm Ao asc: 2.99 cm G peak SL(A2C): -20.79 % G peak SL(A4C): -19.17 % G peak SL(APLAX): -21.05 % G peak SL(Avg): -20.34 % IVC: 1.36 cm LAAs A4C: 16.37 cm2 LV Major: 6.03 cm LV Minor: 3.68 cm LVEF_2Ch_Q: 56.78 % LVEF_4Ch_Q: 65.64 % RAAs: 15.31 cm2 CW AV VTI: 28.01 cm AV Vmax: 1.61 m/s AV Vmean: 1.03 m/s AV maxP.42 mmHg AV meanP.03 mmHg MR Vmax: 5.43 m/s TR Vmax: 2.64 m/s TR maxP.85 mmHg RAP: 5 mmHg MM Ao Diam: 3.37 cm AV Cusp: 1.91 cm LA Diam: 4.13 cm %FS: 32.1 % EF(Teich): 59.61 % IVSd: 1.01 cm IVSs: 1.04 cm LVIDd: 5.62 cm LVIDs: 3.82 cm LVPWd: 1.01 cm LVPWs: 1.08 cm TAPSE: 2.29 cm PW DUNCAN (VTI): 3.1 cm2 DUNCAN Vmax: 3.18 cm2 LVOT Vmax: 1.24 m/s LVOT maxP.15 mmHg MV A Maverick: 0.85 m/s MV E Maverick: 1.04 m/s MV E/A Ratio: 1.23 MV PHT: 45.78 ms MVA By PHT: 4.81 cm2 PV VTI: 21.47 cm PV Vmax: 1.21 m/s PV maxP.83 mmHg RVSP: 32.85 mmHg LATERAL E/E: 8.68 LVOT VTI: 20.99 cm LVOT Vmean: 0.78 m/s LVOT meanP.84 mmHg Lateral E': 0.12 m/s PAEDP: 12.92 mmHg PRend P.92 mmHg PRend Vmax: 1.41 m/s RV S: 0.17 m/s SEPATLE/E: 9.09 SEPTALE': 0.11 m/s Prepared and signed by Ronnie Dorado MD Signed 02-Dec-2018 13:16:38 Shannon Valadez MD ECHO ORDERABLES [facility] * LAB RESULTS ORDER (04/13/2018) Scanned Document LAB - THERAPEUTIC DR VAZQUEZ MONITORING ORDERABLES * XR ABDOMEN KUB (07/26/2017 11:34 AM CDT) Anatomical Region Laterality Modality Abdomen Radiographic Aubree ging 07/26/2017 11:4 0 AM CDT Impressions 07/26/2017 11:42 AM CDT Bilateral renal calculi. Indeterminate calcification of the pelvis could be phleboliths. Reading Radiologist: Tg Patel MD on 07/26/2017 at 11:42 AM Narrative 07/26/2017 11:42 AM CDT Abdomen KUB one view INDICATION: Painful urination KUB of the abdomen is provided. Small calcification is noted below the left 12th rib suspicious for a lower pole left renal calculus measuring 2 mm. Rounded calcifications are seen in the pelvis which could be phleboliths. Indeterminate calcification is seen in the right as well overlying the right 12th rib 3 mm likely a renal calculus as well. Procedure Note Tg Patel MD - 07/26/2017 Abdomen KUB one view INDICATION: Painful urination KUB of the abdomen is provided. Small calcification is noted below the left 12th rib suspicious for a lower pole left renal calculus measuring 2 mm. Rounded calcifications are seen in the pelvis which could be phleboliths. Indeterminate calcification is seen in the right as well overlying the right 12th rib 3 mm likely a renal calculus as well. IMPRESSION Bilateral renal calculi. Indeterminate calcification of the pelvis could be phleboliths. Reading Radiologist: Tg Patel MD on 07/26/2017 at 11:42 AM Lindsay Ojeda [facility]G ORDERABLES * CULTURE URINE+GRAM STAIN (07/26/2017 10:53 AM CDT) Pathologist [facility] Culture Urine No growth (<1,000 CFU/mL) LAUREANO 07/27/2017 2:05 PM CDT [facility] Gram Stain No organisms seen 07/27/2017 2:05 PM CDT [facility] Urine URINE SPECIMEN OBTAINED BY CLEAN CATCH PROCEDURE / Unknown Collection / Unknown 07/26/2017 10:53 AM CDT 07/26/2017 10:53 AM CDT Lindsay Ojeda APRN-MACHINE OPERATOR PACKAGING LAB - MICROBIOL OGY ORDERABLES [facility] [address] [place] [address], [facility] [phone] * (ABNORMAL) URINALYSIS - POCT (IP) URGENT CARE (07/26/2017 10:44 AM CDT) Glucose UA neg Negative [facility] POCT TESTING Bilirubin UA neg Negative [facility] PO CT TESTING Ketone UA neg Negative [facility] POCT TESTING Specific [place] UA POCT 1.010 1.000 - 1.030 [facility] POCT TESTING Blood UA 3+ Negative [facility] POCT TESTING pH UA 5.0 5.0 - 8.0 pH units [facility] POCT TESTING Protein UA neg Negative [facility] POCT TESTING Urobilinogen UA 0.2 0.2 - 1.0 EU/dL [facility] POCT TESTING Nitrite UA neg Negative [facility] POCT TESTING Leukocyte UA trace Negative [facility] PO CT TESTING QC Verified Yes Yes [facility] POC T TESTING Urine URINE / Unknown 07/26/2017 1 0:44 AM CDT Lindsay Ojeda STEEL DIE ENGRAVER-MACHINE OPERATOR PACKAGING LAB - POINT OF CARE ORDERABLES [facility] POCT TESTING [id number] [phone] * ILR DEVICE INTERROGATION (06/13/2017) Only the most recent of10 resultswithin the time period is included. Shannon Valadez MD CARDIAC SERVICES ORDERABLES [facility] RESULT SCAN * CT ABDOMEN PELVIS WWO CONTRAST (03/10/2017 3:37 PM STRUCTURAL IRON ERECTOR) Anatomical Region Laterality Modality Abdomen, Pelvis Computed Tomogra phy 03/11/2017 12:5 7 PM STRUCTURAL IRON ERECTOR Impressions 03/11/2017 1:06 PM STRUCTURAL IRON ERECTOR Nonobstructing renal calculi are present bilaterally, the largest at the lower pole of the left kidney. Narrative 03/11/2017 1:06 [address]ON ERECTOR CT urogram with 3-D reconstructions Indication: Hematuria Comparison: None Technique: CT was performed through the abdomen and pelvis. 80 cc Omnipaque 350 was then administered intravenously and CT performed through the abdomen. Delayed images were obtained through the abdomen and pelvis. Maximum intensity projection reformatted images were obtained. 3-D reformatted images were then created by a technologist at an independent workstation. Findings: Images obtained prior to administration of intravenous contrast demonstrates an approximately 1 mm diameter calculus at the mid right kidney. There is an approximately 3 mm diameter calculus at the mid to lower pole the right kidney. An approximately 2 mm diameter calculus and a 1 mm diameter calculus is present at the lower pole of the right kidney. At the lower pole collecting system of the left kidney, there are approximately 4 x 2 mm and 2 mm diameter calculi.. Neither kidney appears obstructed. No radiopaque calculi are seen along the expected course of either ureter. Following administration of intravenous contrast, renal enhancement is symmetric. No solid renal masses are seen. No filling defect is seen within either renal collecting system on delayed images. Visualized portions of the lung bases are clear. The liver and spleen enhance uniformly after administration of contrast. Adrenal glands and pancreas appear unremarkable. There is no inflammation adjacent to an intact gallbladder. No free air is seen within the abdomen. Bowel is normal in caliber. An umbilical hernia contains only fat. There are few scattered diverticuli of the descending and sigmoid colon without evidence of acute diverticulitis at this time. The appendix can be seen in the right lower quadrant and appears normal. Pelvis: Bowel in the pelvis is normal in caliber. Contours of the urinary bladder are normal. No filling defect is seen within the urinary bladder on delayed images. Procedure Note Kaylah Cade MD - 03/11/2017 CT urogram with 3-D reconstructions Indication: Hematuria Comparison: None Technique: CT was performed through the abdomen and pelvis. 80 cc Omnipaque 350 was then administered intravenously and CT performed through the abdomen. Delayed images were obtained through the abdomen and pelvis. Maximum intensity projection reformatted images were obtained. 3-D reformatted images were then created by a technologist at an independent workstation. Findings: Images obtained prior to administration of intravenous contrast demonstrates an approximately 1 mm diameter calculus at the mid right kidney. There is an approximately 3 mm diameter calculus at the mid to lower pole the right kidney. An approximately 2 mm diameter calculus and a 1 mm diameter calculus is present at the lower pole of the right kidney. At the lower pole collecting system of the left kidney, there are approximately 4 x 2 mm and 2 mm diameter calculi.. Neither kidney appears obstructed. No radiopaque calculi are seen along the expected course of either ureter. Following administration of intravenous contrast, renal enhancement is symmetric. No solid renal masses are seen. No filling defect is seen within either renal collecting system on delayed images. Visualized portions of the lung bases are clear. The liver and spleen enhance uniformly after administration of contrast. Adrenal glands and pancreas appear unremarkable. There is no inflammation adjacent to an intact gallbladder. No free air is seen within the abdomen. Bowel is normal in caliber. An umbilical hernia contains only fat. There are few scattered diverticuli of the descending and sigmoid colon without evidence of acute diverticulitis at this time. The appendix can be seen in the right lower quadrant and appears normal. Pelvis: Bowel in the pelvis is normal in caliber. Contours of the urinary bladder are normal. No filling defect is seen within the urinary bladder on delayed images. IMPRESSION Nonobstructing renal calculi are present bilaterally, the largest at the lower pole of the left kidney. Eder Fernandez MD CT ORDERABLES * MRI PELVIS WITH AND WITHOUT CONTRAST (01/31/2017 3:41 PM STRUCTURAL IRON ERECTOR) Anatomical Region Laterality Modality Pelvis Magnetic Resonan ce 02/03/2017 8:41 AM STRUCTURAL IRON ERECTOR Narrative 02/03/2017 9:05 AM STRUCTURAL IRON ERECTOR MRI prostate, with and without contrast Indication for examination: Prostate cancer, elevated PSA Precontrast T1, T2 and diffusion-weighted images of the prostate gland are obtained. Sequential dynamic contrast-enhanced T1-weighted images are obtained. ??18 cc gadolinium contrast were used. Complex postprocessing with 3-D reconstruction was performed at an independent workstation. Prostate gland has a calculated volume of 30 cc. Examination of the peripheral zone reveals ill-defined, generalized reduced T2 signal intensity with hyperemia following gadolinium administration. No significant diffusion restriction is identified. ??Findings appear inflammatory or postinflammatory in etiology. No definite suspicious abnormality identified in the peripheral zone. Examination of the transitional zone reveals inhomogeneous T2 signal intensity. No mass lesion or confluent abnormal signal is identified to specifically suggest a neoplastic process within the transitional zone however. Seminal vesicles are symmetric. There are no abnormally enlarged pelvic lymph nodes. Visualized bony structures show normal marrow signal intensity. CONCLUSION: No suspicious abnormality identified at this time. PIRADS 2 Procedure Note Ten Dodd MD - 02/03/2017 MRI prostate, with and without contrast Indication for examination: Prostate cancer, elevated PSA Precontrast T1, T2 and diffusion-weighted images of the prostate gland are obtained. Sequential dynamic contrast-enhanced T1-weighted images are obtained. 18 cc gadolinium contrast were used. Complex postprocessing with 3-D reconstruction was performed at an independent workstation. Prostate gland has a calculated volume of 30 cc. Examination of the peripheral zone reveals ill-defined, generalized reduced T2 signal intensity with hyperemia following gadolinium administration. No significant diffusion restriction is identified. Findings appear inflammatory or postinflammatory in etiology. No definite suspicious abnormality identified in the peripheral zone. Examination of the transitional zone reveals inhomogeneous T2 signal intensity. No mass lesion or confluent abnormal signal is identified to specifically suggest a neoplastic process within the transitional zone however. Seminal vesicles are symmetric. There are no abnormally enlarged pelvic lymph nodes. Visualized bony structures show normal marrow signal intensity. CONCLUSION: No suspicious abnormality identified at this time. PIRADS 2 Eder Fernandez MD MR ORDERABLES * CREATININE BLOOD - POINT OF CARE (IP) (01/31/2017 2:47 PM STRUCTURAL IRON ERECTOR) Creatinine POCT 0.94 0.7 - 1.2 mg/dL [facility] POCT TESTING QC Verified Yes Yes [facility] POC T TESTING Blood BLOOD SPECIMEN / Unknown 01/31/2017 2:47 PM STRUCTURAL IRON ERECTOR Eder Fernandez MD LAB - POINT OF CARE ORDERABLES [facility] POCT TESTING [id number] [phone] * PATHOLOGY/CYTOLOGY REPORT ORDER (10/27/2016) Scanned Document LAB - PATHOLOGY/CYTO LOGY ORDERABLES * ILR CLINIC CHECK (09/23/2016 12:17 PM CDT) Shannon Valadez MD CARDIAC SERVICES ORDERABLES * XR HIP 2+ VW LEFT (03/25/2016 4:31 PM STRUCTURAL IRON ERECTOR) Only the most recent of2 resultswithin the time period is included. Anatomical Region Laterality Modality Pelvis, Lower Extremity Radiogra phic Imaging 03/25/2016 5:17 PM STRUCTURAL IRON ERECTOR Impressions 03/25/2016 5:18 PM STRUCTURAL IRON ERECTOR UNREMARKABLE 2 VIEW EXAMINATION OF THE LEFT HIP Narrative 03/25/2016 5:18 PM STRUCTURAL IRON ERECTOR LEFT HIP 2 VIEWS INDICATION: Left hip pain FINDINGS: ??Frontal and frog-leg lateral views of the left hip, 1609 hours, are reviewed in comparison to 06/02/2014 examination. I do not see any evidence of fracture or dislocation. The acetabular joint spaces maintained. Overlying soft tissues are unremarkable. Procedure Note Jeremy Stover MD - 03/25/2016 LEFT HIP 2 VIEWS INDICATION: Left hip pain FINDINGS: Frontal and frog-leg lateral views of the left hip, 1609 hours, are reviewed in comparison to 06/02/2014 examination. I do not see any evidence of fracture or dislocation. The acetabular joint spaces maintained. Overlying soft tissues are unremarkable. IMPRESSION UNREMARKABLE 2 VIEW EXAMINATION OF THE LEFT HIP Elias Mayorga MD DIAGNOSTIC IMAGING O RDERABLES * ENDOSCOPY, COLON, SCREENING (06/16/2015 8:27 AM CDT) Report Endoscopy POC _ Patient Name: Serg Maldonado ?Procedure Date: 06/16/2015 8:27 AM ? Date [...] the physician, the ? nurse and the driver merchandiser in the procedure room. Mental ? Status [...] Procedure Code(s): ? --- Professional --- ? 75412, Colonoscopy, flexible; diagnostic, including collection of ? specimen(s) by brushing or washing, when performed (separate procedure) ? --- Technical --- ? 00651, Colonoscopy, flexible; diagnostic, including collection of ? specimen(s) by brushing or washing, when performed (separate procedure) Diagnosis Code(s): ? --- Professional --- ? K64.8, Other hemorrhoids ? Z12.11, Encounter for screening for malignant neoplasm of colon ? --- Technical --- ? K64.8, Other hemorrhoids ? Z12.11, Encounter for screening for malignant neoplasm of colon CPT copyright 2015 [employer]. All rights reserved. The codes documented in this report are preliminary and upon computer language coder review may be revised to meet current compliance requirements. Dr. Shailesh Brar MD Shailesh Brar MD 06/16/2015 8:52:37 AM This report has been signed electronically. Number of Addenda: 0 Note Initiated On: 06/16/2015 8:27 AM [facility] 06/16/2015 8:27 AM CDT Shailesh Brar MD GI PROCEDURE ORDERA [facility] [place] [address] * CARDIAC CATH CONSULT - For Epic Reporting (09/10/2014 9:30 PM CDT) Narrative [facility] - 09/10/2014 9:30 PM CDT Shannon Valadez MD ? 09/10/2014 ??9:30 PM ? ILR DEVICE Implantable Loop recorder implantation 09/07/2014 Patient Information Name: Serg Maldonado Date of : 1960 Age: 53 y.o. Referring Physician: Elias Mayorga Supervisor Cab: Shannon Valadez INDICATION Hx of atrial flutter s/p ablation SVT S/p repeat EP study with no inducible arrhythmia besides AF Flecainide therapy Current anticoagulation therapy Repeat EP study did not result in induction of any arrhythmia besides atrial fibrillation. The integrity of the flutter line was intact. No slow pathway, no accessory pathway.By process of elimination, SVT is most likely an atrial tachycardia. Given the easily inducible atrial fibrillation, it is possible that the atrial tachycardia is actually a pulmonary vein tachycardia. Patient subsequently had a recent DVT so we planned to implant a loop recorder to detect occult spontaneous AF. ?? Implantation Following pre-procedural re-evaluation of patient and diagnostic tests, a fasting state was confirmed, an informed consent was obtained and patient was brought to the EP lab. Noninvasive hemodynamic monitoring was established via surface electrocardiographic electrodes, blood pressure cuffs and pulse oximetry. Monitoring continued throughout the duration of the procedure. An intravenous line was established. The leftparasternal region was prepped and draped using sterile technique.Local anesthesia was achieved with lidocaine subcutaneously. An approximately 1 cm incision was made at the surgical site using the reveal LINQ surgical tool and the device was inserted in the premuscular fascia.Manual pressure was for hemostasis and steri-strips were applied. Wound was dressed with guaze and tegaderm. ?HARDWARE Device Model/Brand ?? Serial ?? Implant ?? Location Name ?Number ??Date [employer] ?? [id number] ??09/07/2014 ?? Left parasternal Reveal LINQ PARAMETER ?INTERVAL ?DURATION TACHY ?? 171b/m ?24 beats CANDACE ?40b/m ?8 beats ASYSTOLE ?3.0 s AF ?Episodes >=20mins PROCEDURES DONE 1) Implantable loop recorder implantation 55691 SUMMARY Successful and uncomplicated ILR implantation. PLAN Avoid strenuous activities involving the chest wall muscles for 1 week Shannon Valadez M.D. Cardiac Supervisor Cab [facility] [place] [phone] (office) [phone] (pager) Shannon Valadez MD ECHO ORDERABLES [facility] CARDIAC SERVICES * CARDIAC PROCEDURE ORDER (09/08/2014 10:03 PM CDT) Only the most recent of3 resultswithin the time period is included. Narrative 09/08/2014 10:03 PM CDT Ordered by an unspecified provider. Scanned Document CARDIAC SERVICES ORD ERABLES * VAS LEFT VENOUS DUPLEX LE (09/05/2014 9:17 AM CDT) Only the most recent of2 resultswithin the time period is included. Anatomical Region Laterality Modality Lower Extremity, Upper Extremity Ultrasound 09/05/2014 7:58 AM CDT Narrative Procedure Note Terrance Marsh MD - 09/05/2014 [facility] [address], [address] [place] [address] Lower Extremity Venous Ultrasound Report Pat.Name: SERG MALDONADO Pat.ID: [id number] St.Date: 09/05/2014 Exam Time: 7:58:00 AM Study Type:LE Venous Age: 10 1960,53Y Sex: MALE Sonogrphr: Anders Antoine RVT Pat. Stat.:Outpatient ICD - 9: Follow up [V67.9] CPT - 4: 23026 Reason for Study:Follow up DVT History / Clinical:Left calf DVT found 08/29/2014 Procedures:Lower Extremity Venous - Left Visit ID: [id number] SUMMARY: Subacute DVT left gastrocnemius vein without extension into the tibial veins FINDINGS: Procedure: Venous duplex imaging of the left lower extremity was performed using color flow and spectral Doppler analysis. The contralateral common femoral vein was also examined. Study Quality: This study is of adequate technical quality. Lt Leg: There is sub-acute, non-occlusive thrombus in one of two gastrocnemius veins. Partial recanalization of the gastrocnemius vein. All other vessels seen appear patent and compressible. There was spontaneous and phasic flow seen in all other major veins of the left lower extremity. Appropriate augmentation with distal compression. The right common femoral vein demonstrated phasic and spontaneous flow. Comments: Findings of today's exam show improvement compared to the previous exam dated 08/29/2014. Signed 09/05/2014 01:40 PM Terrance Marsh MD Elias Mayorga MD VASCULAR LAB ORDERAB LES * EP LAB CONSULT (07/21/2014 10:48 PM CDT) Only the most recent of2 resultswithin the time period is included. Narrative [facility] CARDIAC SERVICES - 07/21/2014 10:48 PM CDT Shannon Valadez MD ? 07/21/2014 10:48 PM ?Electrophysiology ??Procedure Report ? 07/19/2014 Patient Information Serg Maldonado [id number] 1960 53 y.o.male Referring Physician: Dr Magen Cates PCP : Dr. Ten Umanzor Supervisor Cab: Shannon Valadez MD Indication for Study: SVT Palpitations 53 yr old man with a past medical history of atrial flutter as well as frequent APCs status post typical flutter circuit ablation on 01/11/2014. He was placed on flecainide post ablation and following discontinuation he felt well until recently when he started having a recurrence of palpitations. He refused an event monitor but promised to come into the office should he have another recurrence that was long lasting. On 06/19/2014, while at work he experienced the sudden onset of palpitations. An EKG revealed a regular narrow complex tachycardia at a rate of 158 beats per min. This did not have a typical flutter pattern but there were baseline deflections that look like P-waves in lead V1 but also look like possibly atypical flutter waves in the inferior leads. After reviewing his options which include antiarrhythmic therapy versus repeat BP study he readily elected to have a repeat EP study. Local Anesthesia: Medication:Lidocaine 1% ?Total Dose: 40 ??ml Catheters: Type: ?Insertion IntraCardiac ??Sheath Duodecapolar ??Right ??HRA ?? 8F short Halo ?? Femoral ?? 7F ?? Vein Woven Flexi ??Left ??HBE ?? 6F short 6F ?? Femoral ? Vein Bard Decapolar ??Left ??Coronary sinus ??7F short 7F ?Femoral ?? Vein Smart Touch ?? Right ?? RV ?? 8F 3.5mm F/J ??Femoral 8F ?? Vein Procedure Description Following pre-procedural re-evaluation of patient and diagnostic tests, a fasting state was confirmed, an informed consent was obtained and patient was brought to the EP lab. moderate sedation was administered by the anesthesia staff. The groins were prepped and draped in the usual sterile manner. Using the modified Seldinger technique, vascular sheaths and electrode catheters were placed as indicated above. COMPREHENSIVE ELECTROPHYSIOLOGY STUDY 1st the integrity of the previously ablated cavotricuspid isthmus was checked. Pacing from the ostium of the coronary sinus resulted in a counter clockwise atrial activation sequence of the halo catheter proceeding from dipole 19-20 to dipole 1-2. Then pacing from dipole 1-2 on the lower aspect of the right atrial lateral wall resulted in a clockwise atrial activation sequence of the halo catheter (reversal) from 1-2 to 19-20. These confirmed cavotricuspid isthmus bidirectional conduction block. Differential pacing also confirmed bidirectional block. Trans cavotricuspid isthmus conduction time was 127ms both ways. These maneuvers ruled out typical flutter as the clinical tachycardia. Baseline values were obtained and a comprehensive EP study ??was performed ??including assessment ??of sinus node, ??AV node ?? function as well as determination ??of atrial ??and ventricular effective ??refractory ??Periods. Measurements Pre-Procedure ECG Rhythm: NSR QRS Morphology: ??normal Baseline Intervals CL: ?988 ?? msec ?AA: ?? 988 ?? msec WV: ?162 ??msec ?AH: ?? 65 ??msec QRS: 82 ??msec ?HV: ?? 49 ??msec QT: ?380 ??msec ?R-R: ??988 ??msec Pacing from the RV apex at baseline revealed 1:1 VA conduction which was concentric and decremental.VA wenckebach cycle length was 380 ms. VA ERP was 320 at a PCL of 600 and VERP was 240 at a PCL of 600 HRA ??pacing revealed 1:1 conduction without any evidence of pre-excitation down to 360 ms. Anterograde AV wenckebach was at 360 ms Dual AV node physiology was absent AVN ERP was <420ms at PCL of 500 ms. Patient went into AF ARRHYTHMIA INDUCTION Arrhythmia induction was attempted via decremental pacing and programmed extra-stimuli on and off Isoproterenol. No SVT was induced. No VT was induced. The only consistently induced arrhythmia was atrial fibrillation. Of note, there were periods of atrial fibrillation and appeared transiently well-organized resulted in almost a regular rhythm. DRUG INFUSION Isoproterenol was infused at a rate of 2 ??Mcg/min (max 5mcg/min). A repeat comprehensive EP study was done after an increase of > 15% in HR. AF continued to be the only arrhythmia induced.Patient had To be cardioverted twice. The other times he reverted spontaneously to sinus rhythm. At the end of the procedure catheters and sheaths were removed and hemostasis was secured by manual pressure. There was no complication and the patient was ??transferred to the recovery unit in stable condition. RADIOFREQUENCY ABLATION No ablation was done. Total ablation time; 0secs Fluoro Time: 9 min Blood loss: minimal SUMMARY NOTES DIAGNOSIS 1) ??Inducible atrial fibrillation. No other arrhythmia induced 2.) ??Bidirectional carvotricuspid isthmus conduction block (maintained from last ablation) 3) Normal sinus node function 4) Normal AV node function 5) No inducible SVT 6) No evidence of accessory pathways PROCEDURES DONE 1) Comprehensive EP study (26020) 2) Drug infusion (isoproterenol) with programmed stimulation (96103) 3) Recording and pacing from the coronary sinus (47593) ABLATION No ablation required for the CTI. Block was maintained from previous ablation. PLAN Bedrest for 3 hr Discontinue NPO order Pain control May be discharged home in 4 hrs Follow up in clinic in 1 week Shannon Valadez M.D. Cardiac Supervisor Cab [facility] [place] [phone] (office) [phone] (pager) 07/21/2014 9:53 PM Shannon Valadez MD ECHO ORDERABLES [facility] CARDIAC [facility] * ECHO DARYL (07/19/2014 8:01 AM CDT) 07/19/2014 8:01 AM CDT Narrative [facility] CARDIAC [facility] - 07/19/2014 9:15 AM CDT [facility] [address] [place] [address] Transesophageal Echocardiogram 2D, Doppler, and Color Doppler Patient: SERG MALDONADO MR number: [id number] Height: 67 in Weight: 180 lb BSA: 1.94 m?? Study date: 19-Jul-2014 : 1960 Age: 53 years Gender: Male Race: 2 Allergies: NAPROXEN Diagnoses: 427.32 - ATRIAL FLUTTER REFERRING PHYSICIAN: ??Justino Jama MD CORE WINDER: ??Tatyana Oviedo VENUS READING LEATHER GRAINER: ??Justino Jama MD Summary: - ??Clinical question: - ??Atrial Flutter - ??History: - ??Atrial Flutter - ??Left ventricle: - ??Systolic function was normal. Ejection fraction was estimated in the range of 55 % to 65 %. - ??There were no regional wall motion abnormalities. - ??Wall thickness was normal. - ??Aortic valve: - ??There was no evidence for vegetation. - ??Mitral valve: - ??There was mild regurgitation. - ??Atrial septum: - ??Contrast injection was performed. There was no ddscm-hl-acur shunt, with provocative maneuvers to increase right atrial pressure. Indications: Atrial Flutter History: Prior history: Atrial Flutter Procedure: This was a routine study. The transesophageal approach was used. The study included limited 2D imaging, limited spectral Doppler, and color Doppler. Systolic blood pressure was 113 mmHg. Diastolic blood pressure was 85 mmHg. Probe passed without complications. Sedation administered per anesthesia. Intravenous contrast (agitated saline) was administered. There were no complications during the procedure. Left ventricle: Size was normal. Systolic function was normal. Ejection fraction was estimated in the range of 55 % to 65 %. There were no regional wall motion abnormalities. Wall thickness was normal. Aortic valve: The valve was trileaflet. Leaflets exhibited normal thickness and normal cuspal separation. There was no evidence for vegetation. Doppler: There was no regurgitation. Aorta: The root exhibited normal size. There was no atheroma. There was no evidence for dissection. There was no evidence for aneurysm. Mitral valve: Doppler: There was mild regurgitation. Left atrium: Size was normal. No thrombus was identified. Appendage: The size was normal. The function was normal (normal emptying velocity). No thrombus was identified. Atrial septum: No defect or patent foramen ovale was identified. Contrast injection was performed. There was no aueqn-ft-mhtg shunt, with provocative maneuvers to increase right atrial pressure. Right ventricle: The size was normal. Systolic function was normal. Wall thickness was normal. Pulmonic valve: Doppler: There was no significant regurgitation. Tricuspid valve: Doppler: There was trivial regurgitation. Right atrium: Size was normal. No thrombus was identified. Pericardium: There was no pericardial effusion. The pericardium was normal in appearance. Prepared and signed by Justino Jama MD Signed 19-Jul-2014 09:15:33 Procedure Note Justino Jama MD - 07/19/2014 [place] [address] Transesophageal Echocardiogram 2D, Doppler, and Color Doppler Patient: SERG MALDONADO MR number: [id number] Height: 67 in Weight: 180 lb BSA: 1.94 m?? Study date: 19-Jul-2014 : 1960 Age: 53 years Gender: Male Race: 2 Allergies: NAPROXEN Diagnoses: 427.32 - ATRIAL FLUTTER REFERRING PHYSICIAN: Justino Jama MD CORE WINDER: Tatyana Oviedo RDCS READING LEATHER GRAINER: Justino Jama MD Summary: - Clinical question: - Atrial Flutter - History: - Atrial Flutter - Left ventricle: - Systolic function was normal. Ejection fraction was estimated in the range of 55 % to 65 %. - There were no regional wall motion abnormalities. - Wall thickness was normal. - Aortic valve: - There was no evidence for vegetation. - Mitral valve: - There was mild regurgitation. - Atrial septum: - Contrast injection was performed. There was no rtvoi-ds-jqal shunt, with provocative maneuvers to increase right atrial pressure. Indications: Atrial Flutter History: Prior history: Atrial Flutter Procedure: This was a routine study. The transesophageal approach was used. The study included limited 2D imaging, limited spectral Doppler, and color Doppler. Systolic blood pressure was 113 mmHg. Diastolic blood pressure was 85 mmHg. Probe passed without complications. Sedation administered per anesthesia. Intravenous contrast (agitated saline) was administered. There were no complications during the procedure. Left ventricle: Size was normal. Systolic function was normal. Ejection fraction was estimated in the range of 55 % to 65 %. There were no regional wall motion abnormalities. Wall thickness was normal. Aortic valve: The valve was trileaflet. Leaflets exhibited normal thickness and normal cuspal separation. There was no evidence for vegetation. Doppler: There was no regurgitation. Aorta: The root exhibited normal size. There was no atheroma. There was no evidence for dissection. There was no evidence for aneurysm. Mitral valve: Doppler: There was mild regurgitation. Left atrium: Size was normal. No thrombus was identified. Appendage: The size was normal. The function was normal (normal emptying velocity). No thrombus was identified. Atrial septum: No defect or patent foramen ovale was identified. Contrast injection was performed. There was no rvkab-ja-cdpq shunt, with provocative maneuvers to increase right atrial pressure. Right ventricle: The size was normal. Systolic function was normal. Wall thickness was normal. Pulmonic valve: Doppler: There was no significant regurgitation. Tricuspid valve: Doppler: There was trivial regurgitation. Right atrium: Size was normal. No thrombus was identified. Pericardium: There was no pericardial effusion. The pericardium was normal in appearance. Prepared and signed by Justino Jama MD Signed 19-Jul-2014 09:15:33 Shannon Valadez MD ECHO ORDERABLES [facility] CARDIAC SERVICES * BASIC METABOLIC PANEL (CALCIUM TOTAL) (07/12/2014 7:56 AM CDT) Only the most recent of3 resultswithin the time period is included. Glucose 89 65 - 99 mg/dL [facility] ACCOUNT BILL BUN 13 6 - 24 mg/dL [facility] ACCOUNT BILL Creatinine 0.96 0.76 - 1.27 mg/dL [facility] ACCOUNT BILL eGFR by MDRD 89 >59 mL/min/1.7 3 [facility] ACCOUNT BILL eGFR by MDRD 102 >59 mL/min/1.7 3 [facility] ACCOUNT BILL BUN/Creatinine Ratio 14 9 - 20 [facility] ACCOUNT BILL Sodium 140 134 - 144 mmol/L [facility] ACCOUNT BILL Potassium 4.8 3.5 - 5.2 mmol/L [facility] ACCOUNT BILL Chloride 102 97 - 108 mmol/L [facility] ACCOUNT BILL CO2 21 18 - 29 mmol/L [facility] ACCOUNT BILL Calcium 9.6 8.7 - 10.2 mg/dL [facility] ACCOUNT BILL 07/12/2014 7:56 AM CDT 07/12/2014 12:26 PM CDT Narrative Resulting Agency Comment [facility] [address] ??[facility] [phone] Shannon Valadez MD LAB - CHEMISTRY O RDERABLES [facility] ACCOUNT BILL * XR LUMBAR SPINE 2 OR 3 VW (05/10/2014 8:18 AM CDT) Anatomical Region Laterality Modality Spine Radiographic Aubree ging 05/10/2014 8:41 AM CDT Impressions 05/10/2014 8:41 AM CDT No acute findings. Disc heights preserved. Narrative 05/10/2014 8:41 AM CDT Lumbosacral Spine 3 Views INDICATION: Back pain. Low back pain. FINDINGS: ??Normal alignment of the lumbar spine without acute fracture or subluxation seen. Vertebral body heights and disc spaces are preserved. No destructive bony change is evident. Procedure Note Ten Aguila MD - 05/10/2014 Lumbosacral Spine 3 Views INDICATION: Back pain. Low back pain. FINDINGS: Normal alignment of the lumbar spine without acute fracture or subluxation seen. Vertebral body heights and disc spaces are preserved. No destructive bony change is evident. IMPRESSION No acute findings. Disc heights preserved. Ten Umanzor DIAGNOSTIC IMAGING O RDERABLES * CARDIAC EVENT MONITOR (03/17/2014 1:16 AM STRUCTURAL IRON ERECTOR) Narrative [facility] RESULT SCAN - 03/17/2014 1:16 AM STRUCTURAL IRON ERECTOR Shannon Valadez MD ? 03/17/2014 ??1:16 AM [facility] CARDIOLOGY MOBILE CARDIAC TELEMETRY MONITORING ? Pts name: Serg Hampton Jax : 1960 Ordering Physician: Dr. Shannon Palmer Physician: Dr. Shannon Valadez Date of service : 01/28/2014 Indication/Symptoms: Palpitations Mobile Cardiac Telemetry Monitoring was obtained to evaluate the patient for cardiac dysrhythmias. The patient has symptoms of palpitations. Mobile monitoring started on 01/28/2014 and continued until 02/25/2014. INTERPRETATION: 1. Predominant rhythm is sinus with heart rates ranging between 56 to 114 beats per minute. Average heart rate was 84 beats per minute. 2. There were no episodes of sinus pauses of more than 2 seconds during this event monitoring period. 3. There were no episodes of atrial fibrillation or flutter noted during this event monitoring period. 4. There were no documented premature atrial complexes, couplets or runs noted. 5. There were rare (perhaps total of 6) documented single premature ventricular complexes, no couplets or runs noted. 6. The patient reported symptoms of fluttering in chest during a period of sinus tachycardia with 2 PVCs noted. However, he had an identical episode of sinus tachycardia with 2 PVCs that he did not report so symptom correlation is unclear. The patient was monitored with a cardiac satellite project site monitor for 29 days through [facility]. Shannon Valadez MD 03/11/2014 4:26 PM Procedure Note Lizet Guy - 03/11/2014 4:25 PM CST [facility] CARDIOLOGY MOBILE CARDIAC TELEMETRY MONITORING ? Pts name: Sergjose luis Maldonado : 1960 Ordering Physician: Dr. Shannon Palmer Physician: Dr. Shannon Valadez Date of service : 01/28/2014 Indication/Symptoms: Palpitations Mobile Cardiac Telemetry Monitoring was obtained to evaluate the patientfor cardiac dysrhythmias. The patient has symptoms of palpitations. Mobile monitoring started on 01/28/2014 and continued until 02/25/2014. INTERPRETATION: 1. Predominant rhythm is sinus with heart rates ranging between 56 to 114beats per minute. Average heart rate was 84 beats per minute. 2. There were no episodes of sinus pauses of more than 2 seconds duringthis event monitoring period. 3. There were no episodes of atrial fibrillation or flutter noted duringthis event monitoring period. 4. There were no documented premature atrial complexes, couplets or runsnoted. 5. There were rare (perhaps total of 6) documented single prematureventricular complexes, no couplets or runs noted. 6. The patient reported symptoms of fluttering in chest during a period ofsinus tachycardia with 2 PVCs noted. However, he had an identical episodeof sinus tachycardia with 2 PVCs that he did not report so symptomcorrelation is unclear. The patient was monitored with a cardiac satellite project site monitor for [facility] day[facility]rough [facility]. Shannon Valadez MD 03/11/2014 4:26 PM Shannon Valadez MD CARDIAC SERVICES ORDERABLES M RESULT SCAN * HOLTER MONITOR (02/09/2014 12:32 PM STRUCTURAL IRON ERECTOR) Narrative M RESULT SCAN - 02/09/2014 12:32 PM STRUCTURAL IRON ERECTOR Shannon Valadez MD ? 02/09/2014 12:32 PM [facility] Heart [address] [address] Patient Information Patient Name: ??Serg Maldonado Gender: ??male : 1960 Duration: ??47:34 Hookup Date: ?? 01/26/2014 Indications: ??palpitations Holter Report Summary Total QRS Complexes: 845852 ? Ventricular Ectopics: ? 1149 ? Supraventricular Ectopics: ??12 ? Heart rate ? Min: 52 bpm ? Max: ?? 142 bpm ? Avg: ??77 bpm ? Paced Beats: ?? None ? Pause(s): ?None Longest: ?None Ventricular Events Isolateds: ??1124 In Bigeminal Cycles: ?? 1 In Quadrigeminy: ??6 Couplets: ??2 Runs: ??0 Supraventricular Events Isolateds: ??12 Couplets: ??0 Runs: ??0 47 hrs were analyzed The rhythm was sinus Rates ranged from 52 beats per min to 142 beats per min, average rate of 77 beats per min AV conduction was within normal limits Longest RR interval was 1.448seconds No significant pauses were seen Interpretation Unremarkable Holter monitor( details above) Shannon Valadez MD Procedure Note MalenaSummere M - 01/31/2014 3:15 PM CST [facility] [place] [address] [place] [id number] Patient Information Patient Name: Serg Maldonado Gender: male : 1960 Duration: 47:34 Hookup Date: 01/26/2014 Indications: palpitations Holter Report Summary Total QRS Complexes: 621199 Ventricular Ectopics: 1149 Supraventricular Ectopics: 12 Heart rate Min: 52 bpm Max: 142 bpm Av bpm Paced Beats: None Pause(s): None Longest: None Ventricular Events Isolateds: 1124 In Bigeminal Cycles: 1 In Quadrigeminy: 6 Couplets: 2 Runs: 0 Supraventricular Events Isolateds: 12 Couplets: 0 Runs: 0 47 hrs were analyzed The rhythm was sinus Rates ranged from 52 beats per min to 142 beats per min, average rate of77 beats per min AV conduction was within normal limits Longest RR interval was 1.448seconds No significant pauses were seen Interpretation Unremarkable Holter monitor( details above) Shannon Valadez MD Shannon Valadez MD CARDIAC SERVICES ORDERABLES [facility] RESULT SCAN * CARDIAC RHYTHM STRIP ORDER (01/13/2014 12:23 AM STRUCTURAL IRON ERECTOR) Only the most recent of2 resultswithin the time period is included. Narrative 01/13/2014 12:23 AM STRUCTURAL IRON ERECTOR Ordered by an unspecified provider. Scanned Document CARDIAC SERVICES ORD ERABLES * (ABNORMAL) PT-INR (01/04/2014 5:34 PM STRUCTURAL IRON ERECTOR) INR 1.2 0.8 - 1.2 [facility] ACCOUNT BILL Comment: ? Reference interval is for non-anticoagulated patients. ?. ? Suggested INR therapeutic range for Vitamin K ? antagonist therapy: ?Standard Dose (moderate intensity ? therapeutic range): ? 2.0 - 3.0 ?Higher intensity therapeutic range ? 2.5 - 3.5 PT 12.3(H) 9.1 - 12.0 sec [facility] ACCOUNT BILL 01/04/2014 5:34 PM STRUCTURAL IRON ERECTOR 01/04/2014 6:47 PM STRUCTURAL IRON ERECTOR Narrative Resulting Agency Comment [facility] [address] ??[facility] [phone] Shannon Valadez MD LAB - COAGULATION ORDERABLES [facility] ACCOUNT BILL * CARDIAC STRESS TEST ORDER (10/28/2013 8:36 PM CDT) Scanned Document CARDIAC SERVICES ORD ERABLES * ECHOCARDIOGRAM STRESS (10/19/2013 3:12 PM CDT) 10/19/2013 3:12 PM CDT Narrative [facility] CARDIAC SERVICES - 10/21/2013 8:52 AM CDT [facility] [place] [facility] [id number] [place] [address] Exercise Stress Echocardiography Name: SERG MALDONADO MR #: [id number] Study date: 19-Oct-2013 : 1960 Age: 52 years Gender: Male Height: 68 in Weight: 170 lb BSA: 1.91 m?? Allergies: NAPROXEN Diagnosis: 427.32 - ATRIAL FLUTTER Reading Physician: ??Olvin Tyson MD Referring Physician: ??Ten Umanzor DO CORE WINDER: ??Katina Jacky Cardiology Group: ??[facility] Referring Physician: ??Jn Valadez MD HISTORY: Atrial flutter REST ECG: Normal sinus rhythm. PROCEDURE: Treadmill exercise testing was performed, using the Rafa protocol. Stress and rest echocardiographic evaluation was performed from multiple acoustic windows for evaluation of ventricular function. Systolic blood pressure was 121 mmHg, at the start of the study. Diastolic blood pressure was 86 mmHg, at the start of the study. The heart rate was 62 bpm, at the start of the study. RAFA PROTOCOL: HR bpm SBP mmHg DBP mmHg Symptoms Baseline 62 121 86 none Stage 1 94 138 80 -- Stage 2 117 142 84 -- Stage 3 136 160 88 -- Immediate 166 -- -- -- Recovery 1 120 152 82 -- Recovery 2 102 142 78 -- STRESS SUMMARY: Duration was 11 min. Maximal work rate was 13.4 METs. Maximal heart rate during stress was 166 bpm ( 100 % of maximal predicted heart rate). Target heart rate was achieved. Maximal systolic blood pressure during stress was 160 mmHg. There was no chest pain during stress. The stress test was terminated due to achievement of target heart rate. The stress ECG was normal. There were no stress arrhythmias or conduction abnormalities. STRESS 2D ECHOCARDIOGRAPHIC RESULTS: BASELINE: There were no regional wall motion abnormalities. SUMMARY: - ??Stress results: Maximal work rate was 13.4 METs. Target heart rate was achieved. There was no chest pain during stress. - ??ECG conclusions: The stress ECG was normal. - ??Baseline: There were no regional wall motion abnormalities. IMPRESSIONS: Normal study after maximal exercise. Left ventricular systolic function was normal. Prepared and signed by Olvin Tyson MD Signed 21-Oct-2013 08:51:53 Procedure Note Olvin Tyson MD - 10/21/2013 [facility] [place] [place] [address] Exercise Stress Echocardiography Name: SERG MALDONADO MR #: [id number] Study date: 19-Oct-2013 : 1960 Age: 52 years Gender: Male Height: 68 in Weight: 170 lb BSA: 1.91 m?? Allergies: NAPROXEN Diagnosis: 427.32 - ATRIAL FLUTTER Reading Physician: Olvin Tyson MD Referring Physician: Ten Umanzor DO CORE WINDER: Katina Rico Cardiology Group: [facility] Referring Physician: Jn Valadez MD HISTORY: Atrial flutter REST ECG: Normal sinus rhythm. PROCEDURE: Treadmill exercise testing was performed, using the Rafa protocol. Stress and rest echocardiographic evaluation was performed from multiple acoustic windows for evaluation of ventricular function. Systolic blood pressure was 121 mmHg, at the start of the study. Diastolic blood pressure was 86 mmHg, at the start of the study. The heart rate was 62 bpm, at the start of the study. RAFA PROTOCOL: HR bpm SBP mmHg DBP mmHg Symptoms Baseline 62 121 86 none Stage 1 94 138 80 -- Stage 2 117 142 84 -- Stage 3 136 160 88 -- Immediate 166 -- -- -- Recovery 1 120 152 82 -- Recovery 2 102 142 78 -- STRESS SUMMARY: Duration was 11 min. Maximal work rate was 13.4 METs. Maximal heart rate during stress was 166 bpm ( 100 % of maximal predicted heart rate). Target heart rate was achieved. Maximal systolic blood pressure during stress was 160 mmHg. There was no chest pain during stress. The stress test was terminated due to achievement of target heart rate. The stress ECG was normal. There were no stress arrhythmias or conduction abnormalities. STRESS 2D ECHOCARDIOGRAPHIC RESULTS: BASELINE: There were no regional wall motion abnormalities. SUMMARY: - Stress results: Maximal work rate was 13.4 METs. Target heart rate was achieved. There was no chest pain during stress. - ECG conclusions: The stress ECG was normal. - Baseline: There were no regional wall motion abnormalities. IMPRESSIONS: Normal study after maximal exercise. Left ventricular systolic function was normal. Prepared and signed by Olvin Tyson MD Signed 21-Oct-2013 08:51:53 Olvin Tyson MD ECHO ORDERABLES Performing Organization Address City/[facility]/ZIP Co de Phone Number [facility] * TSH (10/18/2013 8:41 AM CDT) Pathologist [facility] TSH 1.79 0.358 - 3.740 uIU/mL 10/18/2013 9:19 AM CDT [facility] Blood BLOOD SPECIMEN / Unknown Lab Venipuncture / Unknown 10/18/2013 8:41 AM CDT 10/18/2013 8:48 AM CDT Olvin Tyson MD LAB - CHEMISTRY JON JASMINE [facility] [address] [place] [address] * LIPID PROFILE (10/18/2013 8:41 AM CDT) [facility] Cholesterol 188 <200 mg/dL 10/18/2013 9:14 AM CDT [facility] Triglycerides 115 <150 mg/dL 10/18/2013 9:14 AM CDT [facility] HDL Cholesterol 44 >40 mg/dL 10/18/2013 9:14 AM CDT [facility] LDL Calculated 121 <130 mg/dL 10/18/2013 9:14 AM CDT [facility] VLDL Calculated 23 <=30 mg/dL 10/18/2013 9:14 AM CDT [facility] Chol HDL Ratio 4.3 <4.5 10/18/2013 9:14 AM CDT [facility] Blood BLOOD SPECIMEN / Unknown Lab Venipuncture / Unknown 10/18/2013 8:41 AM CDT 10/18/2013 8:48 AM CDT Olvin Tyson MD LAB - CHEMISTRY [facility] Organization Address City/State/ZIP Co de Phone Number [facility] [address] [place] [address] * ED CRITICAL CARE (10/06/2013 12:28 PM CDT) Narrative Parisa Torres MD - 10/06/2013 12:28 PM CDT Parisa Torres MD ? 10/06/2013 12:28 PM Provider contact with the patient: 10/06/2013 ?09:08 Serg [place] [id number] [facility] EM[facility]GENCY [facility] History Chief Complaint Patient presents with ? ? Arrhythmia ??Pt from physicians office, reports was in SVT. Currently in A flutter. Pt reports onset of tachycardia last night after playing soccer with daughter. ?? HPI Comments: 9:08 AM Serg Maldonado, a 52 y.o. male with a past medical history that includes--atrial flutter--presents to the ER with c/o arrhythmia accompanied by SOB. This same problem has occurred last December and pt was put on Cardizem. Pt believes that he was diagnosed with atrial flutter. Pt took 1 tablet of Cardizem at 10 PM and another one at 2 AM. Risk factors for CAD/CVA: No history of A-fib. No previous CVA. No Family history. No DM. No HTN. No hyperlipidemia. No known CAD. Non smoker. No SLE. No RA. Risk factors for DVT/PE: No family history. No previous DVT/PE. No recent surgery. No cancer history. No recent long trips or leg injuries. No history of SLE/IBD. Non smoker. Risk factors for Dissection: No hx of Marfan's syndrome, Ashlee Danlos syndrome, bicuspid aortic valve, HTN. No history of a first degree relative with aortic aneurism. Non smoker. Vitals: BP 107/94 Pulse 158 Temp(Src) 98.2 ??F Resp 16 Ht 1.727 m (5' 7.99 ) Wt 79.833 kg (176 lb) BMI 26.77 kg/m2 SpO2 99% RA On Examination: Well looking pt. Regular Tachycardia. Trachea central. Equal air entry bilaterally. CTA. No pericardial friction rub. No epigastric tenderness to palpation. Radial and dorsal pedal pulses intact and equal bilaterally. No point tenderness on palpation of the chest. Physician: Ten Umanzor Allergies: ??-- Naproxen -- GI Discomfort Social history: ??reports that he has never smoked. He does not have any smokeless tobacco history on file. He reports that he drinks about 0.5 ounces of alcohol per week. He reports that he does not use illicit drugs. No past medical history on file. Past Surgical History Procedure Laterality Date ? ? Shoulder arthroscopy ? Carpal tunnel surgery ? Hernia repair, inguinal ??04/11/11 No family history on file. History Social History ? ? Marital Status: ??Spouse Name: N/A ??Number of Children: N/A ? ? Years of Education: N/A Occupational History ? ? Not on file. Social History Main Topics ? ? Smoking status: Never Smoker ? Smokeless tobacco: Not on file ? ? Alcohol Use: 0.5 oz/week ??1 Cans of beer per week ? ? Drug Use: No ? ? Sexual Activity: Not on file Other Topics Concern ? ? Not on file Social History Narrative Review of Systems Review of Systems Constitutional: Negative for fever, chills, diaphoresis, appetite change and fatigue. HENT: Negative for congestion, drooling, ear discharge, ear pain, facial swelling, hearing loss, nosebleeds, postnasal drip, rhinorrhea, sinus pressure, sore throat, tinnitus and trouble swallowing. ?? Eyes: Negative for photophobia, pain, discharge, redness and visual disturbance. Respiratory: Positive for shortness of breath. Negative for apnea, cough, choking, chest tightness, wheezing and stridor. ?? Cardiovascular: Negative for chest pain, palpitations and leg swelling. ? Arrythmia Gastrointestinal: Negative for nausea, vomiting, abdominal pain, diarrhea, constipation, blood in stool, abdominal distention, anal bleeding and rectal pain. Endocrine: Negative for cold intolerance, heat intolerance, polydipsia, polyphagia and polyuria. Genitourinary: Negative for dysuria, urgency, frequency, hematuria, flank pain, decreased urine volume, enuresis, difficulty urinating and genital sores. Musculoskeletal: Negative for myalgias, back pain, joint swelling, arthralgias, gait problem, neck pain and neck stiffness. Skin: Negative for color change, pallor, rash and wound. Neurological: Negative for dizziness, tremors, seizures, syncope, facial asymmetry, speech difficulty, weakness, light-headedness, numbness and headaches. Hematological: Negative for adenopathy. Does not bruise/bleed easily. Psychiatric/Behavioral: Negative for suicidal ideas, hallucinations, behavioral problems, confusion, sleep disturbance, self-injury, dysphoric mood, decreased concentration and agitation. The patient is not nervous/anxious and is not hyperactive. ?? All other systems reviewed and are negative. Physical Exam BP 95/76 Pulse 159 Temp(Src) 98.2 ??F Resp 9 Ht 1.727 m (5' 7.99 ) Wt 79.833 kg (176 lb) BMI 26.77 kg/m2 SpO2 98% Physical Exam Constitutional: Vital signs are normal. He appears well-developed. ??Non-toxic appearance. He does not have a sickly appearance. He does not appear ill. No distress. Well looking pt. ?? HENT: Head: Normocephalic and atraumatic. Eyes: EOM are normal. Pupils are equal, round, and reactive to light. Right eye exhibits no discharge. Left eye exhibits no discharge. Right conjunctiva is not injected. Left conjunctiva is not injected. No scleral icterus. Neck: No JVD present. No tracheal tenderness, no spinous process tenderness and no muscular tenderness present. No rigidity. No tracheal deviation, no edema, no erythema and normal range of motion present. No thyroid mass and no thyromegaly present. Cardiovascular: Regular rhythm. ??Exam reveals no gallop, no S3, no S4 and no distant heart sounds. ?? Pulmonary/Chest: No stridor. Abdominal: He exhibits no distension, no pulsatile liver, no abdominal bruit, no ascites, no pulsatile midline mass and no mass. There is no hepatosplenomegaly. There is no rigidity, no rebound, no guarding and no CVA tenderness. No hernia. Musculoskeletal: ? Right shoulder: He exhibits no bony tenderness, no swelling, no effusion and no crepitus. Lymphadenopathy: ? Right cervical: No deep cervical and no posterior cervical adenopathy present. ? Left cervical: No deep cervical and no posterior cervical adenopathy present. Neurological: He is alert. He displays no atrophy and no tremor. No cranial nerve deficit or sensory deficit. He exhibits normal muscle tone. He displays no seizure activity. Coordination normal. He displays no Babinski's sign on the right side. He displays no Babinski's sign on the left side. Skin: No bruising, no ecchymosis and no laceration noted. Psychiatric: His mood appears not anxious. His affect is not angry, not blunt, not labile and not inappropriate. His speech is not rapid and/or pressured, not delayed, not tangential and not slurred. He is not agitated, not aggressive, not hyperactive, not slowed, not withdrawn and not combative. He does not exhibit a depressed mood. He is communicative. Nursing note and vitals reviewed. Medications No current outpatient prescriptions on file. Procedures Critical Care Performed by: PARISA TORRES Authorized by: PARISA TORRES Total critical care time: 35 minutes Critical care time was exclusive of separately billable procedures and treating other patients. Critical care was necessary to treat or prevent imminent or life-threatening deterioration of the following conditions: Arrythmia. Critical care was time spent personally by me on the following activities: blood draw for specimens, development of treatment plan with patient or surrogate, discussions with consultants, interpretation of cardiac output measurements, evaluation of patient's response to treatment, examination of patient, obtaining history from patient or surrogate, ordering and performing treatments and interventions, ordering and review of laboratory studies, ordering and review of radiographic studies, re-evaluation of patient's condition and review of old charts. ECG Interpretation Date/Time: 10/06/2013 9:02 AM Interpreted by ED provider Comparison: not compared with previous ECG Rhythm: atrial flutter Ectopy: none Rate: tachycardic BPM: 155 QRS axis: normal Conduction: conduction normal ST Segments: ST segments normal ECG Rhythm Interpretation ECG Rhythm: artial flutter. ECG Rate: tachycardic. ECG Heart Rate: 155. ECG Ectopy: none. ECG Blocks: none. Lab Interpretation ? Oxygen Saturation Interpretation The oxygen saturation level is: 99%. The patient was on Room Air for the saturation measurement. Measurement frequency: Spot Check. Oxygen saturation interpretation is Normal. Intervention(s) used: None. Results for orders placed during the hospital encounter of 10/06/13 TROPONIN I ?Result Value Range Troponin I <0.015 ??0.000-0.049 ng/mL CBC W AUTO DIFFERENTIAL ?Result Value Range WBC 5.8 ??4.4-10.7 x10^9/L RBC 5.53 (*) 3.80-5.40 x10^12/L Hgb 17.4 ??12.0-17.6 gm/dL HCT 49.0 ??35.2-51.7 % MCV 88.6 ??80.7-98.3 fl MCH 31.5 ??26.7-34.0 pg MCHC 35.5 ??30.8-35.9 gm/dL Plt Ct 296 ??153-416 x10^9/L RDW-CV 12.4 ??12.1-14.9 % MPV 9.9 ??9.4-12.9 fl Neutro 60.9 ??44.0-73.0 % Lymph 27.3 ??20.0-43.0 % [place] 10.9 ??5.0-13.0 % Eos 0.5 ??0.0-6.0 % Baso 0.2 ??0.0-2.0 % Immature Grans 0.2 ??0-1 % Neutro Abs 3.53 ??2.01-7.14 x10^9/L Lymph Abs 1.58 ??1.07-3.94 x10^9/L [place] Abs 0.63 ??0.26-1.07 x10^9/L Eosin Abs 0.03 ??0-0.47 x10^9/L Baso Abs 0.01 ??0-0.08 x10^9/L Immature Grans Abs 0.01 ??0.00-0.06 x10^9/L COMPREHENSIVE METABOLIC PANEL ?Result Value Range Glucose 105 ??74-106 mg/dL Sodium 139 ??136-145 mmol/L Potassium 4.2 ??3.5-5.1 mmol/L Chloride 108 (*) 98-107 mmol/L CO2 24 ??22-31 mmol/L Calcium 9.1 ??8.5-10.1 mg/dL Anion Gap 7 ??5-15 mmol/L BUN 15 ??7-21 mg/dL Creatinine 0.91 ??0.50-1.30 mg/dL eGFR MDRD >60 ??>60 mL/min/1.73m2 eGFR MDRD AFR AMR >60 ??>60 mL/min/1.73m2 Alk Phos 63 ??38-126 U/L ALT/SGPT 39 ??12-78 U/L AST/SGOT 25 ??5-40 U/L Protein Total 7.6 ??6.4-8.2 gm/dL Albumin 4.1 ??3.4-5.0 gm/dL Bili Total 0.7 ??0.2-1.0 mg/dL XR CHEST 1VW PORTABLE Final Result: ??No acute disease. ? CT CHEST PE Final Result: ? No evidence of pulmonary embolism. ?? Progress Notes 9:24 AM: Paged cardiology. ?? 9:28 AM: I discussed with fletcher Whitmore for Dr. Cates (Cardiology) all pertinent aspects of the case including HPI details, physical exam findings, testing completed, medications given, the pt's current condition, and my clinical impression. She will come down and evaluate the pt and that she will call Dr. Cates. 9:47 AM: I discussed with Dr. Cates (Cardiolgoy) all pertinent aspects of the case including HPI details, physical exam findings, testing completed, medications given, the pt's current condition, and my clinical impression. Will consult on case. 10:00 AM: Dr. Caets will accept the pt at this time. ED Course Medical Decision Making I have reviewed the: Previous Chart, Nursing Notes and Vitals. I have interpreted the following results: Labs, 12 Lead EKG, Rhythm Strip, X-Ray, CT Scans and Oxygen Saturation. I have discussed the case with Cardiology (Myranda for Dr. Cates). Orders Placed This Encounter ? ? ED CRITICAL CARE ? ? XR CHEST 1VW PORTABLE ? ? CT CHEST PE ? ? TROPONIN I ? ? CBC W AUTO DIFFERENTIAL ? ? COMPREHENSIVE METABOLIC PANEL ? ? BASIC METABOLIC PANEL (CALCIUM TOTAL) ? ? CBC W AUTO DIFFERENTIAL ? ? TROPONIN I ? ? IP CONSULT TO ELECTROPHYSIOLOGY ? ? OXYGEN ? ? OXYGEN ? ? EKG 12-LEAD ? ? 0.9% NaCl injection 2-10 mL ? ? 0.9% NaCl IV Bolus ? ? DISCONTD: aspirin (ASPIRIN) chew tablet 324 mg ? ? nitroglycerin (NITROSTAT) tablet 0.4 mg ? ? acetaminophen (TYLENOL) tablet 650 mg ? ? diltiazem (cardIZEM) injection 5 mg ? ? 0.9% NaCl IV Bolus ? ? amiodarone (CORDARONE) IVPB 150 mg ? ? digoxin (LANOXIN) injection 0.5 mg ? ? 0.9% NaCl infusion ? ? 0.9% NaCl injection 10 mL And ? ? 0.9% NaCl injection 10 mL ? ? heparin injection 5,000 Units ? ? famotidine (PEPCID) injection 20 mg ? ? iohexol (OMNIPAQUE 350) contrast ? ? amiodarone (CORDARONE) IVPB 150 mg Diagnosis: Final diagnoses: SVT (supraventricular tachycardia) Atrial flutter (Primary) Disposition: Admit to Observation I have reviewed the information recorded by the scribe and agree with its accuracy and contents--Dr. Parisa Torres 10/06/2013 12:28 PM Transcribed by Deven Tapia acting scribe on behalf of Dr. Torres 10/06/2013 9:13 AM Parisa Torres MD PROCEDURE/MINOR SURG ICAL ORDERABLES * CT CHEST PE (10/06/2013 11:46 AM CDT) Anatomical Region Laterality Modality Chest Computed Tomogra phy 10/06/2013 11:5 5 AM CDT Impressions 10/06/2013 12:03 PM CDT No evidence of pulmonary embolism. Narrative 10/06/2013 12:[address] PE Protocol Clinical Indication: Tachycardia. Atrial flutter. Chest pain. Technique: The pulmonary embolus protocol was utilized. Axial CT images from the lung apices to the lung bases were obtained following Omnipaque 350 80cc intravenous contrast administration. Multiplanar maximum intensity projection reconstructions were created on an independent workstation. Findings: No main, lobar, segmental, or subsegmental pulmonary embolism seen. No thoracic aortic aneurysm or dissection. Normal heart size without pericardial fluid or thickening. No mediastinal or hilar lymphadenopathy appreciated. Lungs are clear without airspace consolidation or pulmonary edema. No pleural effusion or pneumothorax. No acute bony abnormality seen. Procedure Note Ten Aguila MD - 10/06/2013 CT PE Protocol Clinical Indication: Tachycardia. Atrial flutter. Chest pain. Technique: The pulmonary embolus protocol was utilized. Axial CT images from the lung apices to the lung bases were obtained following Omnipaque 350 80cc intravenous contrast administration. Multiplanar maximum intensity projection reconstructions were created on an independent workstation. Findings: No main, lobar, segmental, or subsegmental pulmonary embolism seen. No thoracic aortic aneurysm or dissection. Normal heart size without pericardial fluid or thickening. No mediastinal or hilar lymphadenopathy appreciated. Lungs are clear without airspace consolidation or pulmonary edema. No pleural effusion or pneumothorax. No acute bony abnormality seen. IMPRESSION No evidence of pulmonary embolism. Parisa Torres MD CT ORDERABLES * MRI KNEE WO CONT LEFT (08/02/2011 7:35 AM CDT) Anatomical Region Laterality Modality Lower Extremity Magnetic Resonan ce 08/02/2011 7:57 AM CDT Narrative 08/02/2011 7:57 AM CDT Examination: MRI left knee. Indication for examination: Left knee pain and limited range of motion. Noncontrast T1 and T2-weighted sagittal and coronal T2-weighted axial images of the left knee are obtained. Comparison is made with previous plain films. Medial and lateral meniscus appear grossly intact as do the medial and lateral collateral ligament. Anterior and posterior cruciate ligament are intact. Extensor mechanism is intact. There is degenerative change patellofemoral compartment. There is subchondral edema or subchondral cyst formation superiorly at the lateral facet. There is normal bone marrow signal intensity in the remaining structures. There is no mass lesion or fluid collection. CONCLUSION: Arthritic change patellofemoral compartment, primarily superior and lateral in location. Otherwise unremarkable MRI left knee as described in detail above. Procedure Note Ten Dodd MD - 08/02/2011 Examination: MRI left knee. Indication for examination: Left knee pain and limited range of motion. Noncontrast T1 and T2-weighted sagittal and coronal T2-weighted axial images of the left knee are obtained. Comparison is made with previous plain films. Medial and lateral meniscus appear grossly intact as do the medial and lateral collateral ligament. Anterior and posterior cruciate ligament are intact. Extensor mechanism is intact. There is degenerative change patellofemoral compartment. There is subchondral edema or subchondral cyst formation superiorly at the lateral facet. There is normal bone marrow signal intensity in the remaining structures. There is no mass lesion or fluid collection. CONCLUSION: Arthritic change patellofemoral compartment, primarily superior and lateral in location. Otherwise unremarkable MRI left knee as described in detail above. Ten Umanzor MR ORDERABLES * XR KNEE 1 OR 2 VW LEFT (07/05/2011 9:14 AM CDT) Anatomical Region Laterality Modality Lower Extremity Radiographic Aubree ging 07/05/2011 9:46 AM CDT Impressions 07/05/2011 1:49 PM CDT Negative for fracture at this time. ??Please see above. ?? Narrative 07/05/2011 1:49 PM CDT EXAMINATION: Left knee 3 views INDICATION: Left knee pain at the top of the patella. FINDINGS: No fracture or dislocation can be identified. Bone mineral content is within the expected range for the patient's stated age. ?? If the patient's symptoms persist or worsen, consideration may be given to an alternative imaging modality such as an MRI or a bone scan to check for an occult process. Procedure Note Lester Hernandez MD - 07/05/2011 EXAMINATION: Left knee 3 views INDICATION: Left knee pain at the top of the patella. FINDINGS: No fracture or dislocation can be identified. Bone mineral content is within the expected range for the patient's stated age. If the patient's symptoms persist or worsen, consideration may be given to an alternative imaging modality such as an MRI or a bone scan to check for an occult process. IMPRESSION Negative for fracture at this time. Please see above. 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
--- OUTSIDE RECORDS SUMMARY | 2024-03-07 21:55 | XMS_ITS | Encounter Summary ---
Author Organization [facility] Address [address] [facility] [place] [address] Care Team Providers Care Surveyor Instrument Assistant Name Role Phone Stephanie Prasad RN Unavailable [phone] Lan Bragg DO Unavailable Elias Mayorga MD Primary Care Provider [phone] Reason for Visit * Reason Comments Follow-up Encounter Details Date Type Department Care Team (Late st Contact Info) Description 09/20/2022 3:15 PM CDT Office Visit [facility] Heart & Vascular Care [address] [phone] Shannon Cordon MD [address] [address] Encounter for monitoring flecainide therapy (Primary Dx); PAF (paroxysmal atrial fibrillation) (HCC); Atypical atrial flutter (HCC); Chronic anticoagulation; History of atrial flutter Social History Tobacco Use Types Packs/Day Years [...] Sign Reading Time Taken Comments Blood Pressure 124/80 09/20/2022 3:21 PM CDT Pulse 60 09/20/2022 3:21 PM CDT Temperature 36.4 ??C (97.5 ??F) 09/20/2022 3:21 PM CD T Respiratory Rate - - Oxygen Saturation 98% 09/20/2022 3:21 PM CDT Inhaled Oxygen Concentration - - Weight 77.5 kg (170 lb 12.8 oz) 09/20/2022 3:21 PM CDT Height 172.7 cm (5' 8 ) 09/20/2022 3:21 PM CDT Body Mass Index 25.97 09/20/2022 3:21 PM CDT documented in this encounter Functional [...] No 06/16/2015 documented as of this encounter Patient Instructions * Patient Instructions* Shannon Cordon MD - 09/20/2022 3:59 PM CDT Lets schedule your ablation documented in this encounter Progress Notes * Shannon Cordon MD - 09/20/2022 3:15 PM CDT Images from the original note were not included. ELECTROPHYSIOLOGY OFFICE VISIT 09/20/2022 Kenji Camara 1960 56 y.o. male [id number] Elias Mayorga [place] Referred by: [place] [id number] [address] [place] [id number] REASON FOR VISIT/CHIEF COMPLAINT Follow up of the following medical problems Paroxysmal AF - 11/07/14 Hx of atrial flutter s/p ablation S/p repeat EP study with no inducible arrhythmia besides AF Flecainide therapy Hx of DVT HPI Since last seen, Kenji Camara has been having paroxysms of atrial fibrillation/atrial flutterwhich have been bothersome. He takes flecainide between 100 and 150 mg twice daily. He only takes the higher dose after having episodes. He is considering having an AFib ablation. He will like to have it done if possible before September due to losing his job and being and [employer] gap insurance. CURRENT MEDS Outpatient Prescriptions Marked as Taking for the 06/13/17 encounter (Office Visit) with Shannon Cordon MD Medication Sig ??? aspirin EC (ECOTRIN) 325 MG tablet Take 325 mg by mouth once daily ??? flecainide (TAMBOCOR) 100 MG tablet TAKE 1 TABLET BY MOUTH TWICE DAILY ??? multivitamin daily (THERAGRAN) tablet Take 1 Tab by mouth daily with food ??? rosuvastatin (CRESTOR) 10 MG tablet Take 10 mg by mouth at bedtime SYSTEMIC REVIEW No fever or cough Vitals: 06/13/17 1511 BP: 118/72 Pulse: 72 SpO2: 97% Weight: 85.3 kg (188 lb) GENERAL- Comfortable , No distress CVS - normal pulse , no JVD, S1 S2, no murmur, no leg edema LUNGS - Unlabored breathing, lungs clear , no wheezes/crackles/rhonchi. ABD- not distended NECK - no mass, no thyromegaly SKIN -No rash in visible areas, skin is warm and dry PSY -Alert and oriented to person, place, and time, nl affect, nl mood MUSCULOSKELETAL - nl gait EKG 06/23/2020 Sinus rhythm 65 bpm , no preexcitation, KS interval 164 ms, no Q waves, nml QRS axis, 90 ms QRS duration, non specific st-t abnormalities , QTc 407 ms ASSESSMENT Paroxysmal AF - 11/07/14 Hx of atrial flutter s/p ablation Atypical atrial flutter 03/2022- ER admission [facility] S/p repeat EP study with no inducible arrhythmia besides AF On Flecainide therapy Hx of DVT Hx of loop recorder implantation 09/07/14 (battery is depleted) Chronic anticoagulation PLAN Paroxysmal atrial fibrillation/atrial flutter Flecainide 150 mg b.i.d. Schedule for AFib ablation once he starts his job and has a stable insurance. we also discussed the alternative of switching to Tikosyn/sotalol. He will call back with his final decision. Continue Eliquis 5 mg BID for stroke prevention. Encounter for monitoring of flecainide therapy He needs an EKG at least once every year to monitor his QTC which was 403 ms today. It was a pleasure attending to Kenji Hampton Jax today. Thank you for the opportunity to participate in his care. Shannon Savage MD, FACC, [facility] Cardiac [employer]ar Pit Crew Person [facility] [phone] (Office) [phone] (On-call exchange) documented in this encounter Plan of Treatment Upcoming Encounters Date Type Department Care Team (Late st Contact Info) Description 03/22/2024 9:00 AM BLOOD BANK BUSINESS MANAGER Office Visit [facility] - Ophthalmology [address] [place] [phone] Ernesto Hawkins MD [address] [place] [phone] documented as of this encounter Procedures Procedure Name Priority Date/Time Associated Diagnosis Comments EKG 12-LEAD Routine 09/20/2022 3:34 PM CDT PAF (paroxysmal atrial fibrillation) (HCC) Atypical atrial flutter (HCC) documented in this encounter Results * EKG 12-LEAD (09/20/2022 [...] [facility] MUSE Calculated P [place] 64 degrees [facility] MED [facility] MUSE Calculated R [place] 65 degrees [facility] MED GR[facility] MUSE Calculated T [place] 38 degrees [facility] MED GRP MUSE Interpretation EKG Sinus bradycardia Otherwise normal ECG Confirmed by Shannon Cordon ([id number]) on 09/20/2022 4:25:20 PM [facility] MED GRP MUSE 09/20/2022 3:34 PM CDT 09/20/2022 4:25 PM CDT Shannon Cordon MD ECG ORDERABLES [facility] MED GRP MUSE documented in this encounter Visit Diagnoses Diagnosis Encounter for monitoring flecainide therapy- Primary Encounter for therapeutic drug monitoring PAF (paroxysmal atrial fibrillation) (HCC) Atrial fibrillation Atypical atrial flutter (HCC) Atrial flutter Chronic anticoagulation Encounter for long-term (current) use of anticoagulants History of atrial flutter Personal history of other diseases of circulatory system documented in this encounter Care Teams Surveyor Instrument Assistant Relationship Specialty Start Date End Date Elias Mayorga MD [address] [place] [address] PCP - General Internal Medicine 09/07/14 Stephanie Prasad RN [address] [place] [address] Manager Revenue 10/06/13 Lan Bragg DO [address] [place] [address] Orthopedic Surgery 06/02/14 documented as of this encounter
--- OUTSIDE RECORDS SUMMARY | 2024-03-07 21:55 | XMS_ITS | Encounter Summary ---
Author Organization [facility] Address [address] [place] [address] Care Team Providers Care Chip Mixing Machine Operator Name Role Phone Stehpanie Prasad RN Unavailable [phone] Lan Bragg DO Unavailable Elias Mayorga MD Primary Care Provider [phone] Elias Mayorga MD Unavailable [phone] Encounter Details Date Type Department Care Team (Latest Contact Info) Description 01/30/2024 11:00 AM CANCER GENETICS ASSISTANT - 01/30/2024 11:59 PM CANCER GENETICS ASSISTANT Hospital Encounter [facility] [address] [place] [address] Julieta Dillon, VP DELIVERY-SWATCH MAKER [address] [place] [address] Discharge Disposition: Home or Self Care Social [...] Sign Reading Time Taken Comments Blood Pressure 116/59 01/30/2024 11:58 AM CANCER GENETICS ASSISTANT Pulse 65 01/30/2024 11:58 AM CANCER GENETICS ASSISTANT Temperature 37.2 ??C (99 ??F) 01/30/2024 11:58 AM CANCER GENETICS ASSISTANT Respiratory Rate 18 01/30/2024 11:58 AM CANCER GENETICS ASSISTANT Oxygen Saturation 97% 01/30/2024 11:58 AM CANCER GENETICS ASSISTANT Inhaled Oxygen Concentration - - Weight 79.4 kg (175 lb) 01/30/2024 11:58 AM CANCER GENETICS ASSISTANT Height - - Body Mass Index 26.61 09/11/2023 7:03 PM CDT documented in this [...] as of this encounter Discharge Instructions * Patient Instructions* Julieta Dillon, VP DELIVERY-SWATCH MAKER - 01/30/2024 12:55 PM CANCER GENETICS ASSISTANT You have been diagnosed with a respiratory viral illness. The Center for Disease Control & Prevention (CDC) provides the following general guidance as of April 25, 2023: You can go back to your normal activities when, for at least 24 hours, both are true: Your symptoms are getting better overall. AND You have not had a fever (and are not using fever-reducing medication). When you go back to your normal activities, take added precaution over the next 5 days, such as taking additional steps for tank car cleaner air, hygiene, masks, physical distancing, and/or testing when you will be around other people indoors. Keep in mind that you may still be able to spread the virus thatmade you sick, even if you are feeling better. You are likely to be less contagious at this time, depending on factors like how long you were sick or how sick you were. If you develop a fever or start to feel worse after you have gone back to normal activities, stay home and away from others again until, for at least 24 hours, both are true: your symptoms are improving overall, and you have not had a fever (and are not using fever-reducing medication). Then take added precaution for the next 5 days. PLEASE NOTE: This guidance is intended for community settings. There are no changes to respiratory virus guidance for healthcare settings. Healthcare workers are encouraged to reference the CDC website (cdc.gov) for current guidance and/or consult with their employer for zebbfg-ep-gnzg guidelines. Diagnosis: Strep Throat Aftercare Instructions Your rapid strep test in the Urgent Care today was positive for Strep Throat. Please take antibiotics as prescribed with food or a probiotic until completely gone, even if your symptoms improve. Replace your toothbrush and toothpaste 48 hours after starting you antibiotics to prevent re-infection. You are contagious until you have been on the antibiotic for 24 hours. Increase your fluid intake to 10-12 glasses of non-caffenated beverages a day to prevent dehydration. Get plenty of rest-do not return to work or school until you have completed a full 24 hours of yourantibiotic and you are fever free. Drink warm liquids such as lemon tea or tea with honey. Eat a healthy diet. If swallowing is difficult, eat soft foods such as ice cream, Jell-o, pudding, popsices and soup. Avoid salt and spicy foods. Gargle several times a day with warm salt water (1/2 tsp of salt in 1 cup water). Suck on hard candies or throat lozenges. Young children should not be given such products because they can choke on them. A cool-mist vaporizer or humidifier can moisten and soothe a dry and painful throat. Acetaminophen (Tylenol) or Ibuprofen (Advil) as needed every 6-8 hours for fever or pain. Administer as directed on package insert. Follow up: Please follow up with your Primary Care Provider in 3-5 days if you do not feel better, sooner for worsening symptoms or other concern. Go Immediately to the ER for: Go immediately to the ER for worsening symptoms, inability to swallow saliva, change in voice, difficulty breathing, chest pain, or concerns for dehydration. -There are many OTC medications and supportive care measures you can try to treat your symptoms with and that will help you feel better until symptoms resolve - Make sure you are getting adequate rest and increase your fluid intake while you are recovering - Sleep with head elevated to promote drainage. A humidifier at the head of your bed may help as well. -For runny nose, congestion, or allergy symptoms such as itchy watery eyes, or sneezing, Recommend:Zyrtec, Claritin, or Emelina. - For dry cough: Delysm (dextromethorphan) or Mucinex DM per package instructions, are cough suppressants. - For sinus pressure, post nasal drip, stuffy or clogged nose: sinus irrigation per package direction with distilled water or boil water, and let it cool. If unable to do sinus irrigation you may usesaline nasal spray 2-4 times daily as needed. - Flonase is a another good option as it has a steroid that acts directly on your sinus mucosa. Situpright Insert flonase into nostril point it toward the ear hold other nostril closed then repeat for second nostril; then hold your head down for 60 seconds so that spray is absorbed. The goal is tonot taste the nasal spray.Do this for 2 weeks. For fever and/or pain: Advil (ibuprofen) 600 mg three times daily with food and or Tylenol 1,000 mgevery 4 hours (do not exceed 4,000 mg of Tylenol in 24 hours). - For Sore throat: Cepacol (benzocaine) lozenges, throat sprays, ibuprofen/tylenol, warm salt watergargles, warm tea with honey. - Avoid spreading germs by remaining at home and away from others until you are fever free for 24 hours. Good handwashing, and cover your cough with your sleeve or a tissue instead of your hand. If you are not improving in the next 5-7 days you can return to the clinic, PCP, or Urgent Care/ER to be reevaluated. If you develop a high fever 103+, neck stiffness, trouble breathing, chest pain, or other life threatening symptoms, seek emergency medical care immediately. ER GENETICS ASSISTANT documented in this encounter Medications at Time [...] 1 (one) tablet by mouth at bedtime sildenafil (Viagra) 100 MG tablet Take 1 (one) tablet by mouth once as needed 11/11/2023 amoxicillin (Amoxil) 500 MG tablet Take 1 (one) tablet by mouth 2 times daily for 10 days 20 tablet 01/30/2024 02/09/2024 documented as of this encounter Progress Notes * Julieta Dillon, VP DELIVERY-SWATCH MAKER - 01/30/2024 12:57 PM CST [facility] History of Present Illness Patient Identification Kenji Camara is a 63 year old male. PCP: Elias Mayorga MD Patient information was obtained from patient. History/Exam limitations: none. Patient presented to the Urgent Care by private vehicle. Chief Complaint Reason for Visit: home test + for covid HPI Complains of sore throat, nasal congestion, body aches and cough times 2-3 days. Requesting Paxlovid. Denies known fever or known exposure. Past Medical History: Diagnosis Date Afib ([facility]) 2014 Atrial flutter ([facility]) 12/30/2013 DVT (deep venous thrombosis) ([facility]) left leg upper calf S/P ablation of atrial flutter 01/11/14 [facility]; Successful and uncomplicated ablation of typical atrial flutter circuit, Past Surgical History: Procedure Laterality Date ABLATION FOR ATRIAL FIBRILLATION/FLUTTER 01/11/14 [facility]; Successful and uncomplicated ablation of typical atrial flutter circuit, CARPAL TUNNEL SURGERY COLONOSCOPY 06/16/2015 COLONOSCOPY SCREEN HERNIA REPAIR, INGUINAL 04/11/11 LOOP RECORDER IMPLANT 09/07/2014 Dr. Cordon. [employer]. Successful and uncomplicated ILR implantation. Shoulder Arthroscopy Family History Problem Relation Name Age of Onset Hypertension Mother Cancer - Prostate Father CAD (Coronary Artery Disease) Father Current Outpatient Medications Medication Sig Dispense Refill ALPRAZolam (Xanax) 0.5 MG tablet Take 1 (one) tablet by mouth at bedtime amoxicillin (Amoxil) 500 MG tablet Take 1 (one) tablet by mouth 2 times daily for 10 days 20 tablet0 B Complex Vitamins (VITAMIN B COMPLEX PO) Eliquis 5 MG tablet TAKE 1 TABLET BY MOUTH TWICE DAILY 60 tablet 3 flecainide (Tambocor) 150 MG tablet Take 1 (one) tablet by mouth 2 times daily 180 tablet 3 rosuvastatin (CRESTOR) 10 MG tablet Take 1 (one) tablet by mouth at bedtime sildenafil (Viagra) 100 MG tablet Take 1 (one) tablet by mouth once as needed No current facility-administered medications for this encounter. Allergies Allergen Reactions Naproxen GI Discomfort Social History Tobacco Use Smoking status: Never Smokeless tobacco: Never Substance Use Topics Alcohol use: Yes Alcohol/week: 0.8 standard drinks of alcohol Types: 1 Cans of beer per week Comment: 2 beers a day Review of Systems Review of Systems Constitutional: Positive for malaise/fatigue. HENT: Positive for congestion and sore throat. Eyes: Negative. Respiratory: Positive for cough. Cardiovascular: Negative. Musculoskeletal: Positive for myalgias. Physical Exam BP 116/59 Pulse 65 Temp 99 ??F (37.2 ??C) (Temporal) Resp 18 Wt 79.4 kg (175 lb) SpO2 97% BMI 26.61 kg/m?? No results found. Physical Exam Vitals reviewed. Constitutional: General: He is not in acute distress. Appearance: Normal appearance. He is not ill-appearing. HENT: Head: Normocephalic. Right Ear: Tympanic membrane, ear canal and external ear normal. Left Ear: Tympanic membrane, ear canal and external ear normal. Nose: Congestion present. Mouth/Throat: Mouth: Mucous membranes are moist. Pharynx: Oropharynx is clear. Posterior oropharyngeal erythema present. No oropharyngeal exudate. Eyes: Conjunctiva/sclera: Conjunctivae normal. Pupils: Pupils are equal, round, and reactive to light. Cardiovascular: Rate and Rhythm: Normal rate and regular rhythm. Heart sounds: Normal heart sounds. No murmur heard. Pulmonary: Effort: Pulmonary effort is normal. No respiratory distress. Breath sounds: Normal breath sounds. No wheezing, rhonchi or rales. Musculoskeletal: General: Normal range of motion. Cervical back: Normal range of motion. Lymphadenopathy: Cervical: Cervical adenopathy present. Skin: General: Skin is warm and dry. Neurological: General: No focal deficit present. Mental Status: He is alert and oriented to person, place, and time. Psychiatric: Mood and Affect: Mood normal. Behavior: Behavior normal. Thought Content: Thought content normal. Procedures Procedures Lab Interpretation Oxygen Saturation Interpretation Hospital Encounter on 01/30/24 SARS-COV-2 (COVID-19) AG (IP) POCT Result Value Ref Range SARS-CoV-2 Ag Positive (Abnormal) Negative Lot # [id number] Expiration Date [id number] Instrument Serial Number NA COVID Internal Control Acceptable Acceptable STREP A SCREEN - POCT (IP) URGENT CARE Result Value Ref Range Strep A Rapid POCT Positive (Abnormal) Negative QC Verified Yes Yes No results found. Progress Notes COVID and strep positive in clinic. Patient takes Eliquis, which is a class D interaction with Paxlovid per up-to-date and therefore he is not an eligible candidate for this medication. He was notified of this. Treating strep with amoxicillin. Red flag symptoms for follow up discussed with the patient and he acknowledged understanding and agrees with plan. Medical Decision Making I have reviewed the: Nursing Notes, Vitals. I have interpreted the following results: Labs, Oxygen Saturation. Assessment ICD-10-CM 1. COVID U07.1 2. Cough with exposure to COVID-19 virus R05.8 SARS-COV-2 (COVID-19) AG (IP) POCT Z20.822 STREP A SCREEN - POCT (IP) URGENT CARE 3. Strep throat J02.0 Plan Orders Placed This Encounter SARS-COV-2 (COVID-19) AG (IP) POCT Standing Status: Standing Number of Occurrences: 1 Order Specific Question: Release to patient Answer: Immediate STREP A SCREEN - POCT (IP) URGENT CARE Standing Status: Standing Number of Occurrences: 1 Order Specific Question: Release to patient Answer: Immediate amoxicillin (Amoxil) 500 MG tablet Sig: Take 1 (one) tablet by mouth 2 times daily for 10 days Dispense: 20 tablet Refill: 0 You have been diagnosed with a respiratory viral illness. The Center for Disease Control & Prevention (CDC) provides the following general guidance as of April 25, 2023: You can go back to your normal activities when, for at least 24 hours, both are true: Your symptoms are getting better overall. AND You have not had a fever (and are not using fever-reducing medication). When you go back to your normal activities, take added precaution over the next 5 days, such as taking additional steps for tank car cleaner air, hygiene, masks, physical distancing, and/or testing when you will be around other people indoors. Keep in mind that you may still be able to spread the virus thatmade you sick, even if you are feeling better. You are likely to be less contagious at this time, depending on factors like how long you were sick or how sick you were. If you develop a fever or start to feel worse after you have gone back to normal activities, stay home and away from others again until, for at least 24 hours, both are true: your symptoms are improving overall, and you have not had a fever (and are not using fever-reducing medication). Then take added precaution for the next 5 days. PLEASE NOTE: This guidance is intended for community settings. There are no changes to respiratory virus guidance for healthcare settings. Healthcare workers are encouraged to reference the CDC website (cdc.gov) for current guidance and/or consult with their employer for anccjo-ko-tnih guidelines. Diagnosis: Strep Throat Aftercare Instructions Your rapid strep test in the Urgent Care today was positive for Strep Throat. Please take antibiotics as prescribed with food or a probiotic until completely gone, even if your symptoms improve. Replace your toothbrush and toothpaste 48 hours after starting you antibiotics to prevent re-infection. You are contagious until you have been on the antibiotic for 24 hours. Increase your fluid intake to 10-12 glasses of non-caffenated beverages a day to prevent dehydration. Get plenty of rest-do not return to work or school until you have completed a full 24 hours of yourantibiotic and you are fever free. Drink warm liquids such as lemon tea or tea with honey. Eat a healthy diet. If swallowing is difficult, eat soft foods such as ice cream, Jell-o, pudding, popsices and soup. Avoid salt and spicy foods. Gargle several times a day with warm salt water (1/2 tsp of salt in 1 cup water). Suck on hard candies or throat lozenges. Young children should not be given such products because they can choke on them. A cool-mist vaporizer or humidifier can moisten and soothe a dry and painful throat. Acetaminophen (Tylenol) or Ibuprofen (Advil) as needed every 6-8 hours for fever or pain. Administer as directed on package insert. Follow up: Please follow up with your Primary Care Provider in 3-5 days if you do not feel better, sooner for worsening symptoms or other concern. Go Immediately to the ER for: Go immediately to the ER for worsening symptoms, inability to swallow saliva, change in voice, difficulty breathing, chest pain, or concerns for dehydration. -There are many OTC medications and supportive care measures you can try to treat your symptoms with and that will help you feel better until symptoms resolve - Make sure you are getting adequate rest and increase your fluid intake while you are recovering - Sleep with head elevated to promote drainage. A humidifier at the head of your bed may help as well. -For runny nose, congestion, or allergy symptoms such as itchy watery eyes, or sneezing, Recommend:Zyrtec, Claritin, or Emelina. - For dry cough: Delysm (dextromethorphan) or Mucinex DM per package instructions, are cough suppressants. - For sinus pressure, post nasal drip, stuffy or clogged nose: sinus irrigation per package direction with distilled water or boil water, and let it cool. If unable to do sinus irrigation you may usesaline nasal spray 2-4 times daily as needed. - Flonase is a another good option as it has a steroid that acts directly on your sinus mucosa. Situpright Insert flonase into nostril point it toward the ear hold other nostril closed then repeat for second nostril; then hold your head down for 60 seconds so that spray is absorbed. The goal is tonot taste the nasal spray.Do this for 2 weeks. For fever and/or pain: Advil (ibuprofen) 600 mg three times daily with food and or Tylenol 1,000 mgevery 4 hours (do not exceed 4,000 mg of Tylenol in 24 hours). - For Sore throat: Cepacol (benzocaine) lozenges, throat sprays, ibuprofen/tylenol, warm salt watergargles, warm tea with honey. - Avoid spreading germs by remaining at home and away from others until you are fever free for 24 hours. Good handwashing, and cover your cough with your sleeve or a tissue instead of your hand. If you are not improving in the next 5-7 days you can return to the clinic, PCP, or Urgent Care/ER to be reevaluated. If you develop a high fever 103+, neck stiffness, trouble breathing, chest pain, or other life threatening symptoms, seek emergency medical care immediately. Follow up with Elias Mayorga MD in 3days if symptoms persist, sooner if symptoms worsen. AVS reviewed with patient. The Patient indicates understanding of these issues and agrees with the plan. Patient discharged to Home. ER GENETICS ASSISTANT * Titus Reeves RN - 01/30/2024 12:05 PM CST Pt c/o ODONNELL, dry cough, sore throat, runny nose , sneezing and body aches. Took tylenol with no relief. Pt took in home covid and was positive yesterday. Pt requesting paxlovid and a possible work note. ER GENETICS ASSISTANT documented in this encounter Miscellaneous Notes * Addendum Note - Isidra Valerio CCS - 01/30/2024 11:59 PM CSTEncounter addended by: Isidra Valerio CCS on: 02/02/2024 9:37 PM Actions taken: Charge Capture section accepted ER GENETICS ASSISTANT documented in this encounter Plan of Treatment Upcoming Encounters Date Type Department Care Team (Late st Contact Info) Description 03/22/2024 9:00 AM CANCER GENETICS ASSISTANT Office Visit [facility] - Ophthalmology [address] [place] [address] Ernesto Hawkins MD [address] [place] [address] documented as of this encounter Procedures Procedure Name Priority Date/Time Associated Diagnosis Comments STREP A SCREEN - POCT (IP) URGENT CARE Routine 01/30/2024 12:09 PM CANCER GENETICS ASSISTANT Cough with exposure to COVID-19 virus SARS-COV-2 (COVID-19) AG (IP) POCT Routine 01/30/2024 12:08 PM CANCER GENETICS ASSISTANT Cough with exposure to COVID-19 virus documented in this encounter Results * (ABNORMAL) STREP A SCREEN - POCT (IP) URGENT CARE (01/30/2024 12:09 PM CANCER GENETICS ASSISTANT) Strep A Rapid POCT Positive(A ) Negative [facility] QC Verified Yes Yes [facility] Throat ENTIRE THROAT (SURFACE REGION OF NECK) / Unknown 01/30/2024 12:09 PM CANCER GENETICS ASSISTANT Julieta Dillon VP DELIVERY-SWATCH MAKER LAB - POINT O F CARE ORDERABLES [facility] [address] [place] [address] * (ABNORMAL) SARS-COV-2 (COVID-19) AG (IP) POCT (01/30/2024 12:08 PM CANCER GENETICS ASSISTANT) SARS-CoV-2 Ag Positive(A) Negative [facility] Lot # [id number] [facility] Expiration Date [id number] [facility] Instrument Serial Number NA [facility] COVID Internal Control Acceptable Acceptable [facility] Microbiology SPECIMEN FROM [employer] FOSSAE / Unknown 01/30/2024 12:08 PM CANCER GENETICS ASSISTANT Narrative [facility] - 01/30/2024 12:11 PM CANCER GENETICS ASSISTANT SARS-CoV-2 antigen testing is authorized for use [...] and symptoms consistent with COVID-19. Julieta Dillon VP DELIVERY-SWATCH MAKER LAB - POINT O F CARE ORDERABLES Performing Organization Address City/State/[facility] Co de Phone Number [facility] [address] [place] [address] documented in this encounter Visit Diagnoses Diagnosis COVID- Primary Cough with exposure to COVID-19 virus Strep throat Streptococcal sore throat documented in this encounter Additional Health Concerns Infection Onset Date Last Indicated Resolved Time COVID-19 Under Investigation 01/30/2024 01/30/2024 01/30/2024 12:11 PM CANCER GENETICS ASSISTANT COVID-19 Confirmed 01/30/2024 01/30/2024 4:33 AM CANCER GENETICS ASSISTANT documented as of this encounter Care Teams Chip Mixing Machine Operator Relationship Specialty Start Date End Date Elias Mayorga MD [address] [place] [address] PCP - General Internal Medicine 09/07/14 Elias Mayorga MD [address] [facility] [address] PCP - Attributed-[employer] [facility] 10/25/22 Stephanie Prasad RN [address] [place] [address] Sales Force Administrator 10/06/13 Lan Bragg DO [address] [place] [address] Orthopedic Surgery 06/02/14 documented as of this encounter
--- OUTSIDE RECORDS SUMMARY | 2024-03-07 21:55 | XMS_ITS | Encounter Summary ---
Author Organization [facility] Address [address] [place] [address] Care Team Providers Care Truck Supervisor Name Role Phone Stephanie Prasad RN Unavailable [phone] Lan Bragg DO Unavailable Elias Mayorga MD Primary Care Provider [phone] Elias Mayorga MD Unavailable [phone] Encounter Details Date Type Department Care Team (Latest Contact Info) Description 01/30/2024 Travel Social History Tobacco Use Types Packs/Day [...] st Contact Info) Description 03/22/2024 9:00 AM ENTRY OPERATOR Office Visit [facility] - Ophthalmology [address] [facility], [place] [id number] Ernesto Hawkins MD [address] [place] [id number] documented as of this encounter Visit Diagnoses Not on filedocumented in this encounter Additional Health Concerns Infection Onset Date Last Indicated Resolved Time COVID-19 Under Investigation 01/30/2024 01/30/2024 01/30/2024 12:11 PM ENTRY OPERATOR COVID-19 Confirmed 01/30/2024 01/30/2024 4:33 AM ENTRY OPERATOR documented as of this encounter Care Teams Truck Supervisor Relationship Specialty Start Date End Date Elias Mayorga MD [address] [place] [address] PCP - General Internal Medicine 09/07/14 Elias Mayorga MD [address] [place] [address] PCP - Attributed-[employer] EH STL 10/25/22 Stephanie Prasad RN [address] [place] [address] Hat And Cap Opener 10/06/13 Lan Bragg DO [address] [place] [address] Orthopedic Surgery 06/02/14 documented as of this encounter
--- OUTSIDE RECORDS SUMMARY | 2024-03-07 21:56 | XMS_ITS | Encounter Summary ---
Author Organization [facility] Address [address] [facility] [place] [address] Care Team Providers Care Deputy Program Manager Name Role Phone Stephanie Prasad RN Unavailable [phone] Lan Bragg DO Unavailable Elias Mayorga MD Primary Care Provider [phone] Elias Mayorga MD Unavailable [phone] Encounter Details Date Type Department Care Team (Latest Contact Info) Description 06/21/2020 Travel Social History Tobacco Use Types Packs/Day Years Used Date Smoking Tobacco: Never Smokeless Tobacco: Never Alcohol Use Standard Drinks/Week Comments Yes 0.8 (1 standard drink = 0.6 oz p ure alcohol) 2 beers a day Sex and Gender Information Value Date Recorded Sex Assigned at Not on file Gender Identity Not on file Sexual Orientation Not on file COVID-19 Exposure Response Date Recorded In the last month, have you been in contact with someone who was confirmed or suspected to have Coronavirus / COVID-19? No / Unsure 06/21/2020 3:26 PM CDT documented as of this encounter [...] st Contact Info) Description 03/22/2024 9:00 AM EMERGENCY CARE ATTENDANT Office Visit [facility] - Ophthalmology [address] [facility], [place], [place] [phone] Ernesto Hawkins MD [address] [place] [phone] documented as of this encounter Visit Diagnoses Not on filedocumented in this encounter Care Teams Deputy Program Manager Relationship Specialty Start Date End Date Elias Mayorga MD [address] [facility] [address] [place] [address] PCP - General Internal Medicine 09/07/14 Elias Mayorga MD [address] [place] [address] PCP - Attributed-WellFirst EHP STL 08/25/19 08/12/22 Stephanie Prasad RN [address] [facility] [address] [place] [address] Special Education Supervisor 10/06/13 Lan Bragg DO [address] [facility] [address] [place] [address] Orthopedic Surgery 06/02/14 documented as of this encounter
--- OUTSIDE RECORDS SUMMARY | 2024-03-07 21:56 | XMS_ITS | Encounter Summary ---
Author Organization [facility] Address [address] [facility] [place] [address] Care Team Providers Care Adobe Architect Name Role Phone Stephanie Prasad RN Unavailable [phone] Lan Bragg DO Unavailable Elias Mayorga MD Primary Care Provider [phone] Reason for Visit * Reason Comments Implantable Device Follow-Up Carelink Encounter Details Date Type Department Care Team (Latest Contact Info) Description 07/17/2015 11:50 AM CDT Procedure visit [facility] [address] [place] [address] Typical atrial flutter (HCC) ; Status post placement of implantable loop recorder Social History Tobacco Use Types Packs/Day Years Used Date Smoking Tobacco: Never Alcohol Use Standard Drinks/Week Comments [...] No 06/16/2015 documented as of this encounter Progress Notes * Molly Lozoya - 07/18/2015 10:28 AM CDT Patient's Linq recorder was interrogated via home monitor with [employer]. Interrogation was reviewed by Dr Jn Cordon MD . Without anomalies detected. documented in this encounter Plan of Treatment Upcoming Encounters Date Type Department Care Team (Late st Contact Info) Description 03/22/2024 9:00 AM FOOD AND BEVERAGE MANAGER Office Visit [facility] - Ophthalmology [address] [place] [address] Ernesto Hawkins MD [facility] [place] [phone] documented as of this encounter Procedures Procedure Name Priority Date/Time Associated Diagnosis Comments ILR DEVICE INTERROGATION Routine 07/18/2015 Typical atrial flutter (HCC) Status post placement of implantable loop recorder documented in this encounter Results * ILR DEVICE INTERROGATION (07/18/2015) Shannon Cordon MD CARDIAC SERVICES ORDERABLES NONSSM RESULT SCAN documented in this encounter Visit Diagnoses Diagnosis Typical atrial flutter (HCC)- Primary Atrial flutter Status post placement of implantable loop recorder documented in this encounter Care Teams Adobe Architect Relationship Specialty Start Date End Date Elias Mayorga MD [address] [place] [address] PCP - General Internal Medicine 09/07/14 Stephanie Prasad, RN [address] [place] [address] Skills Auditor 10/06/13 Lan Bragg DO [address] [place] [address] Orthopedic Surgery 06/02/14 documented as of this encounter
--- OUTSIDE RECORDS SUMMARY | 2024-03-07 21:56 | XMS_ITS | Encounter Summary ---
Author Organization [facility] [place] Address [address] [facility] [place] [address] Care Team Providers Care Armature Tester Name Role Phone Stephanie Prasad RN Unavailable [phone] Lan Bragg DO Unavailable Elias Mayorga MD Primary Care Provider Reason for Referral * Procedure (Routine) - Closed Specialty Diagnoses / Procedures Referred By Contac t Referred To Contact Cardiology Diagnoses Typical atrial flutter (HCC) Paroxysmal atrial fibrillation (HCC) Procedures EKG 12-LEAD Shannon Cordon MD [address] [place] [address] Referral ID Status Reason Start Date Expiration Date Visits Re quested Visits Authorized [id number] Closed 05/31/2016 2016 1 1 Reason for Visit * Reason Comments Follow-up 3MOFU Atrial Fibrillation hx of afl ablation o n flecainide Encounter Details Date Type Department Care Team (Late st Contact Info) Description 05/31/2016 2:45 PM CDT Office Visit [facility] [place] [facility] [address] [place] [phone] Shannon Cordon MD [address] [place] [address] Paroxysmal atrial fibrillation 11/07/14 seen on loop recorder (Primary Dx); Typical atrial flutter (HCC); Status post placement of implantable loop recorder [...] Sign Reading Time Taken Comments Blood Pressure 127/80 05/31/2016 3:15 PM CDT Pulse 75 05/31/2016 3:15 PM CDT Temperature - - Respiratory Rate - - Oxygen Saturation - - Inhaled Oxygen Concentration - - Weight 82.6 kg (182 lb) 05/31/2016 3:15 PM CDT Height 172.7 cm (5' 8 ) 05/31/2016 3:15 PM CDT Body Mass Index 27.67 05/31/2016 3:15 PM CDT documented in this encounter Functional [...] this encounter Patient Instructions * Patient Instructions* Precious Beavers PA-C - 05/31/2016 3:51 PM CDT Continue flecainide 100 mg b.i.d. No AF ablation at this time (the patient is stable on flecainide and he does not want invasive management) Follow up 1year documented in this encounter Progress Notes * Shannon Cordon MD - 05/31/2016 3:43 PM CDT . ELECTROPHYSIOLOGY OFFICE VISIT 05/31/2016 Kenji Camara 1960 55 y.o. male [id number] Elias Mayorga [place]: [place] [id number] [facility] [address] [place] [address] REASON FOR VISIT/CHIEF COMPLAINT Follow up of the following medical problems Paroxysmal AF - 11/07/14 Hx of atrial flutter s/p ablation S/p repeat EP study with no inducible arrhythmia besides AF Flecainide therapy Current anticoagulation therapy ?? DVT HPI The patient returns today for followup of the above medical diagnoses. Since last visit he has feltwell on flecanide. He has had no significant palpitations, lightheadedness, chest pain, shortness of breath, orthopnea, PND or leg edema. Overall, pretty good energy. He has self discontinued his blood thinner on account of significant rectal bleeding, then developed a DVT in L leg. Placed back on anticoagulation, but then he stopped again as very afraid to take blood thinners. Has been taking ASA 325 since last visit. CURRENT MEDS Outpatient Prescriptions Marked as Taking for the 05/31/16 encounter (Office Visit) with Shannon Cordon MD [...] mouth at bedtime SYSTEMIC REVIEW No fever No cough Vitals: 05/31/16 1515 BP: 127/80 Pulse: 75 Weight: 82.6 kg (182 lb) GENERAL- Comfortable , No distress CVS [...] affect, nl mood MUSCULOSKELETAL - nl gait Last loop[ interrogaiton 04/17/16 - no arrthymias ASSESSMENT Paroxysmal AF - 11/07/14 Hx of atrial flutter s/p ablation S/p repeat EP study with no inducible arrhythmia besides AF Flecainide therapy Prior anticoagulation therapy ??- now on 325mg ASA S/p loop recorder implantation PLAN Continue flecainide 100 mg b.i.d. Continue ASA (refuses anticoagulation) Follow up 1 year It was a pleasure attending to Kenji Camara today. Thank you for the opportunity to participate in his care. Shannon Cordon M.D. Cardiac Plastic Boat Patcher [facility] Heart [place] [phone] (office) [phone] (pager) documented in this encounter Plan of Treatment Upcoming Encounters Date Type Department Care Team (Late st Contact Info) Description 03/22/2024 9:00 AM INTERMODAL OWNER OPERATOR TRUCK DRIVER Office Visit [facility] - Ophthalmology [address] [place] [phone] Ernesto Hawkins MD [address] [place] [phone] documented as of this encounter Procedures Procedure Name Priority Date/Time Associated Diagnosis Comments EKG 12-LEAD Routine 05/31/2016 Typical atrial flutter (HCC) Paroxysmal atrial fibrillation 11/07/14 seen on loop recorder documented in this encounter Results * EKG 12-LEAD (05/31/2016) Shannon Cordon MD ECG ORDERABLES [facility] RESULT SCAN documented in this encounter Visit Diagnoses Diagnosis Paroxysmal atrial fibrillation 11/07/14 seen on loop recorder- Primary Atrial fibrillation Typical atrial flutter (HCC) Atrial flutter Status post placement of implantable loop recorder documented in this encounter Care Teams Armature Tester Relationship Specialty Start Date End Date Elias Mayorga MD [address] [facility] [address] [place] [address] PCP - General Internal Medicine 09/07/14 Stephanie Prasad, RN [address] [facility] [address] [place] [address] Cutter V Groove 10/06/13 Lan Bragg DO [address] [place] [address] Orthopedic Surgery 06/02/14 documented as of this encounter
--- OUTSIDE RECORDS SUMMARY | 2024-03-07 21:56 | XMS_ITS | Encounter Summary ---
Author Organization [facility] Address [address] [place] [address] Care Team Providers Care Robot Technician Name Role Phone Stephanie Prasad RN Unavailable [phone] Lan Bragg DO Unavailable Elias Mayorga MD Primary Care Provider [phone] Reason for Visit * Reason Comments Event Monitor * Cardiac (Routine) - Closed Specialty Diagnoses / Procedures Referred By Controman t Referred To Contact Diagnoses Palpitations Procedures EVENT MONITOR Shannon Cordon MD [address] [place] [address] Referral ID Status Reason Start Date Expiration Date Visits Re quested Visits Authorized [id number] Closed 11/23/2018 05/22/2019 1 1 Encounter Details Date Type Department Care Team (Late st Contact Info) Description 11/23/2018 9:45 AM CDT Procedure visit [facility] Heart [facility] V[facility] Care [address], [address] [place] [address] Palpitations Social History Tobacco Use Types Packs/Day Years [...] No 06/16/2015 documented as of this encounter Procedure Notes * Shannon Cordon MD - 12/03/2018 8:50 AM CDTAssociated Order(s): EVENT MONITOR [facility] HEALTH HEART AND VASCULAR MOBILE CARDIAC TELEMETRY MONITORING ? Pts name: Kenji Camara : 1960 Ordering Physician: Dr. Cordon Reading Physician: Dr. Cordon Date of service : 11/23/2018 Indication/Symptoms: Paroxysmal atrial fibrillation Mobile Cardiac Telemetry Monitoring was obtained to evaluate the patient for cardiac dysrhythmias. The patient has symptoms of skipped beats. Mobile monitoring started on and continued until 11/29/2018. INTERPRETATION: 1. Predominant rhythm is normal sinus rhythm with heart rates ranging between 50 to 143 beats per minute. Average heart rate was 78 beats per minute. 2. There were no episodes of sinus pauses of more than 3 seconds during this event monitoring period. 3. There were no episodes of atrial fibrillation or flutter noted during this event monitoring period. Anticoagulation therapy, none. 4. There were rare documented premature atrial complexes noted. No runs of SVT. 5. There were no documented premature ventricular complexes noted. No runs of VT. 6. Conduction Abnormalities: None 7. The patient did report symptomatic events throughout this monitoring period. Patient reported skipped beats which does correlate with PVCs as seen on the monitor report. Patient symptoms of skipped beats appear to correlate with PVCs. PVC burden is 1 percent. Will likely reassure patient at next visit. Jn Cordon MD documented in this encounter Plan of Treatment Upcoming Encounters Date Type Department Care Team (Late st Contact Info) Description 03/22/2024 9:00 AM DATA DESIGNER Office Visit [facility] - Ophthalmology [address] [facility], [place] [phone] Ernesto Hawkins MD [address] [place] [address] documented as of this encounter Procedures Procedure Name Priority Date/Time Associated Diagnosis Comments EVENT MONITOR Routine 12/03/2018 8:50 AM CDT Palpitations documented in this encounter Results * EVENT MONITOR (12/03/2018 8:50 AM CDT) Narrative Yas Carrion - 12/03/2018 8:50 AM CDT Shannon Cordon MD ? 12/19/2018 ??6:21 PM [facility] HEALTH HEART AND VASCULAR MOBILE CARDIAC TELEMETRY MONITORING ? Pts name: Kenji Camara : 1960 Ordering Physician: Dr. Cordon Reading Physician: Dr. Cordon Date of service : 11/23/2018 Indication/Symptoms: Paroxysmal atrial fibrillation Mobile Cardiac Telemetry Monitoring was obtained to evaluate the patient for cardiac dysrhythmias. The patient has symptoms of skipped beats. Mobile monitoring started on and continued until 11/29/2018. INTERPRETATION: 1. Predominant rhythm is normal sinus rhythm with heart rates ranging between 50 to 143 beats per minute. Average heart rate was 78 beats per minute. 2. There were no episodes of sinus pauses of more than 3 seconds during this event monitoring period. 3. There were no episodes of atrial fibrillation or flutter noted during this event monitoring period. Anticoagulation therapy, none. 4. There were rare documented premature atrial complexes noted. No runs of SVT. 5. There were no documented premature ventricular complexes noted. No runs of VT. 6. Conduction Abnormalities: ??None 7. The patient did report symptomatic events throughout this monitoring period. ??Patient reported skipped beats which does correlate with PVCs as seen on the monitor report. Patient symptoms of skipped beats appear to correlate with PVCs. PVC burden is 1 percent. Will likely reassure patient at next visit. Jn Cordon MD Procedure Note Shannon Cordon MD - 12/03/2018 8:50 AM CDT [facility] HEART AND VASCULAR MOBILE CARDIAC TELEMETRY MONITORING ? Pts name: Kenji Camara : 1960 Ordering Physician: Dr. Cordon Reading Physician: Dr. Cordon Date of service : 11/23/2018 Indication/Symptoms: Paroxysmal atrial fibrillation Mobile Cardiac Telemetry Monitoring was obtained to evaluate the patientfor cardiac dysrhythmias. The patient has symptoms of skipped beats. Mobile monitoring started on and continued until 11/29/2018. INTERPRETATION: 1. Predominant rhythm is normal sinus rhythm with heart rates rangingbetween 50 to 143 beats per minute. Average heart rate was 78 beats perminute. 2. There were no episodes of sinus pauses of more than 3 seconds duringthis event monitoring period. 3. There were no episodes of atrial fibrillation or flutter noted duringthis event monitoring period. Anticoagulation therapy, none. 4. There were rare documented premature atrial complexes noted. No runs ofSVT. 5. There were no documented premature ventricular complexes noted. No runsof VT. 6. Conduction Abnormalities: None 7. The patient did report symptomatic events throughout this monitoringperiod. Patient reported skipped beats which does correlate with PVCs asseen on the monitor report. Patient symptoms of skipped beats appear to correlate with PVCs. PVCburden is 1 percent. Will likely reassure patient at next visit. Jn Cordon MD Shannon Cordon MD CARDIAC SERVICES ORDERABLES documented in this encounter Visit Diagnoses Diagnosis Palpitations- Primary documented in this encounter Care Teams Robot Technician Relationship Specialty Start Date End Date Elias Mayorga MD [address] [place] [address] PCP - General Internal Medicine 09/07/14 Stephanie Prasad, RN [address] [place] [address] Mine Boss 10/06/13 Lan Bragg DO [address] [facility] [address] [place] [address] Orthopedic Surgery 06/02/14 documented as of this encounter
--- OUTSIDE RECORDS SUMMARY | 2024-03-07 21:56 | XMS_ITS | Encounter Summary ---
Author Organization [facility] Address [address] [facility] [place] [place] [address] Care Team Providers Care Interactive Graphic Designer Name Role Phone Stephanie Prasad RN Unavailable [phone] Lan Bragg DO Unavailable Elias Mayorga MD Primary Care Provider [phone] Encounter Details Date Type Department Care Team (Latest Contact Info) Description 07/26/2017 11:26 AM CDT - 07/26/2017 11:59 PM T Hospital Encounter [facility] [address] [place] [address] Lindsay Ojeda, NPS-BUMPER AND PAINTER [address] [place] [phone] Discharge Disposition: Home or Self Care Social [...] No 06/16/2015 documented as of this encounter Medications at Time of Discharge Medication Sig Dispensed Refills Start Date End Date rosuvastatin (CRESTOR) 10 MG tablet Take 1 (one) tablet by mouth at bedtime aspirin EC (ECOTRIN) 325 MG tabletIndications:Ty pical atrial flutter (HCC),Paroxysmal atrial fibrillation (HCC) Take 325 mg by mouth once daily 10/16/2020 ciprofloxacin (CIPRO) 500 MG tablet Take 1 tablet by mouth 2 times daily for 7 days 14 tablet 07/26/2017 08/02/2017 flecainide (TAMBOCOR) 100 MG tablet Take 1 tablet by mouth 2 times daily for 90 days 180 tablet 3 06/13/2017 09/10/2017 hydrocortisone (ANUSOL-HC) 25 MG suppository Insert 1 suppository into the rectum 2 times daily as needed for Hemorrhoids 15 suppository 07/26/2017 01/17/2021 multivitamin daily (THERAGRAN) tablet Take 1 Tab by mouth daily with food 02/05/2018 phenazopyridine (PYRIDIUM) 200 MG tablet Take 1 tablet by mouth 3 times daily as needed 6 tablet 07/26/2017 02/05/2018 documented as of this encounter Plan of Treatment Upcoming Encounters Date Type Department Care Team (Late st Contact Info) Description 03/22/2024 9:00 AM BLOCK CAPTAIN Office Visit [facility] - Ophthalmology [address] [place] [phone] Ernesto Hawkins MD [address] [place] [phone] documented as of this encounter Procedures Procedure Name Priority Date/Time Associated Diagnosis Comments XR ABDOMEN KUB STAT 07/26/2017 11:34 AM CDT Constipation, unspecified constipation type documented in this encounter Results * XR ABDOMEN KUB (07/26/2017 11:34 AM [...] on 07/26/2017 at 11:42 AM Lindsay Ojeda NPS-BUMPER AND PAINTER DIAGNOSTIC IMAG ING ORDERABLES documented in this encounter Visit Diagnoses Diagnosis Constipation, unspecified constipation type Dysuria Hemorrhoids, unspecified hemorrhoid type documented in this encounter Care Teams Interactive Graphic Designer Relationship Specialty Start Date End Date Elias Mayorga MD [address] [place] [address] PCP - General Internal Medicine 09/07/14 Stephanie Prasad RN [address] [employer] [address] [place] [address] Dry Chain Worker 10/06/13 Lan Bragg DO [address] [employer] [address] [place] [address] Orthopedic Surgery 06/02/14 documented as of this encounter
--- OUTSIDE RECORDS SUMMARY | 2024-03-07 21:56 | XMS_ITS | Encounter Summary ---
Author Organization [facility] Address [address] [place] [address] Care Team Providers Care Malt Liquors Sales Representative Name Role Phone Stephanie Prasad RN Unavailable [phone] Lan Bragg DO Unavailable Elias Mayorga MD Primary Care Provider [phone] Elias Mayorga MD Unavailable [phone] Encounter Details Date Type Department Care Team (Late st Contact Info) Description 10/16/2020 Orders Only [facility] Heart [facility] Vascular Care [address] [facility], [address] [place] [phone] Shannon Cordon MD [address] [facility] [facility] [place] [address] Social History Tobacco Use Types Packs/Day Years [...] have Coronavirus / COVID-19? No / Unsure 10/16/2020 10:02 AM CDT documented as of this encounter Functional [...] st Contact Info) Description 03/22/2024 9:00 AM STUDENT TRUCK DRIVER Office Visit [facility] - Ophthalmology [address] [place] [phone] Ernesto Hawkins MD [address] [place] [phone] documented as of this encounter Visit Diagnoses Not on filedocumented in this encounter Care Teams Malt Liquors Sales Representative Relationship Specialty Start Date End Date Elias Mayorga MD [address] [place] [address] PCP - General Internal Medicine 09/07/14 Elias Mayorga MD [address] [place] [address] PCP - Attributed-WellFirst EHP STL 08/25/19 08/12/22 Stephanie Prasad RN [address] [place] [address] Client Retention Specialist 10/06/13 Lan Bragg DO [address] [place] [address] Orthopedic Surgery 06/02/14 documented as of this encounter
--- OUTSIDE RECORDS SUMMARY | 2024-03-07 21:56 | XMS_ITS | Encounter Summary ---
Author Organization [facility] Address [address] [place] [address] Care Team Providers Care Concrete Journeyman Name Role Phone Stephanie Prasad RN Unavailable [phone] Lan Bragg DO Unavailable Elias Mayorga MD Primary Care Provider [phone] Elias Mayorga MD Unavailable [phone] Reason for Referral * Procedure (Routine) - Closed Specialty Diagnoses / Procedures Referred By Contac t Referred To Contact Cardiology Diagnoses PAF (paroxysmal atrial fibrillation) (HCC) Procedures EKG 12-LEAD Shannon Cordon MD [address] [place] [address] Referral ID Status Reason Start Date Expiration Date Visits Re quested Visits Authorized [id number] Closed 11/16/2021 11/16/2022 1 1 Encounter Details Date Type Department Care Team (Late st Contact Info) Description 11/16/2021 2:30 PM CDT Office Visit [facility] [address] [place] [address] Shannon Cordon MD [address] [place] [address] PAF (paroxysmal atrial fibrillation) (HCC) (Primary Dx); Encounter for monitoring flecainide therapy; Chronic anticoagulation Social History Tobacco Use Types Packs/Day Years [...] Sign Reading Time Taken Comments Blood Pressure 124/84 11/16/2021 2:22 PM CDT Pulse 70 11/16/2021 2:22 PM CDT Temperature 36.5 ??C (97.7 ??F) 11/16/2021 2:22 PM CD T Respiratory Rate 20 11/16/2021 2:22 PM CDT Oxygen Saturation 99% 11/16/2021 2:22 PM CDT Inhaled Oxygen Concentration - - Weight 85.8 kg (189 lb 3.2 oz) 11/16/2021 2:22 P M CDT Height 172.7 cm (5' 8 ) 11/16/2021 2:22 PM CDT Body Mass Index 28.77 11/16/2021 2:22 PM CDT documented in this encounter Functional [...] * Patient Instructions* Shannon Cordon MD - 11/16/2021 3:48 PM CDT It would reasonable to replace your loop recorder for extended monitoring It is also reasonable to increase flecainide to 150 mg twice daily documented in this encounter Progress Notes * Shannon Cordon MD - 11/16/2021 2:30 PM CDT Images from the original note were not included. ELECTROPHYSIOLOGY OFFICE VISIT 06/23/2020 Kenji Camara 1960 56 y.o. male [address] Elias Mayorga [place] Referred by: [place] [address] [place] [address] REASON FOR VISIT/CHIEF COMPLAINT Follow up of the following medical problems Paroxysmal AF - 11/07/14 Hx of atrial flutter s/p ablation S/p repeat EP study with no inducible arrhythmia besides AF Flecainide therapy Hx of DVT HPI Since last seen, Kenji Camara was diagnosed with prostate cancer and is undergoing work up for same. He recently had episodes of what he believes was AF. He had palpitations lasting for almost 24 hrs associated with weakness and lightheadedness. He has a Mundi elmo that documented high heart rates but it has no EKG documentation. Of note, his last event monitoring was in September 2020 and this did not reveal any arrhythmia. Replacing his loop recorder was considered. CURRENT MEDS Outpatient Prescriptions Marked as Taking [...] Sinus rhythm 65 bpm , no preexcitation, DC interval 164 ms, no Q waves, nml QRS axis, 90 ms QRS duration, non specific st-t abnormalities , QTc 407 ms ASSESSMENT Paroxysmal AF - 11/07/14 Hx of atrial flutter s/p ablation S/p repeat EP study with no inducible arrhythmia besides AF On Flecainide therapy Hx of DVT Hx of loop recorder implantation 09/07/14 (battery is depleted) PLAN Kenji Camara wanted to know if he should be scheduled for an AF ablation. I explained that prior to proceeding with an AF ablation, it would be prudent to document the mechanism of his current palpitations. I suggested replacing his loop recorder since office EKGs and event monitor Did not capture any arrhythmia. If we document atrial fibrillation, I will not recommend an ablation until he completes workup and treatment of his prostate cancer since he will not be able to discontinue anticoagulation for 3 months post ablation. We however discussed his other current options 1) Increasing flecainide to 150 mg twice daily 2) Adding metoprolol 3) Switching to Tikosyn/Sotalol 4) Switching to Multaq He agrees with proceeding with removal and replacement of his loop recorder as a first step. I am okay with him increasing his flecainide to 150 mg BID. He did not commit to doing this at thistime. Continue Eliquis 5 mg BID for stroke prevention. It was a pleasure attending to Kenji Camara today. Thank you for the opportunity to participate in his care. Shannon Savage MD, FACC, RS Cardiac Supervisor [employer] [facility] [phone] (Office) [phone] (On-call exchange) documented in this encounter Plan of Treatment Upcoming Encounters Date Type Department Care Team (Late st Contact Info) Description 03/22/2024 9:00 AM ENGINEER PROCESS Office Visit [facility] - Ophthalmology [address] [place] [address] [place] [phone] Ernesto Hawkins MD [address] [place] [phone] documented as of this encounter Procedures Procedure Name Priority Date/Time Associated Diagnosis Comments EKG 12-LEAD Routine 11/16/2021 2:34 PM CDT PAF (paroxysmal atrial fibrillation) (HCC) documented in this encounter Results * EKG 12-LEAD (11/16/2021 2:34 PM CDT) Ventricular Rate 61 BPM SJ SL MED GRP MUSE Atrial Rate 61 BPM SJ SL ME D GRP MUSE P-R Interval 172 ms SJ SL M ED GRP MUSE QRS Duration ms 98 ms SJ S L MED GRP MUSE Q-T Interval ms 410 ms SJ S L MED GRP MUSE QTC Calculation (Bezet) 412 ms SJ SL MED GRP MUSE Calculated P [place] 51 degrees SJ SL MED GRP MUSE Calculated R [place] 29 degrees SJ SL MED GRP MUSE Calculated T [place] 33 degrees SJ SL MED GRP MUSE Interpretation EKG Normal sinus rhythm Normal ECG Confirmed by Shannon Cordon ([id number]) on 11/17/2021 12:06:54 PM S[facility] SL MED GRP MUSE 11/16/2021 2:34 PM CDT 11/17/2021 12:06 PM CDT Shannon Cordon MD ECG ORDERABLES S[facility] SL MED GRP MUSE documented in this encounter Visit Diagnoses Diagnosis PAF (paroxysmal atrial fibrillation) (HCC)- Primary Atrial fibrillation Encounter for monitoring flecainide therapy Encounter for therapeutic drug monitoring Chronic anticoagulation Encounter for long-term (current) use of anticoagulants documented in this encounter Care Teams Concrete Journeyman Relationship Specialty Start Date End Date Elias Mayorga MD [address] [facility] [address] [place] [address] PCP - General Internal Medicine 09/07/14 Elias Mayorga MD [address] [place] [address] PCP - Attributed-[employer] EHP STL 08/25/19 08/12/22 Stephanie Prasad RN [address] [facility] [address] [place] [address] Actuarial Science Professor 10/06/13 Lan Bragg DO [address] [facility] [address] [place] [address] Orthopedic Surgery 06/02/14 documented as of this encounter
--- OUTSIDE RECORDS SUMMARY | 2024-03-07 21:56 | XMS_ITS | Encounter Summary ---
Author Organization [facility] Address [address] [place] [address] Care Team Providers Care Enhanced Environmental Operator Name Role Phone Stephanie Prasad RN Unavailable [phone] Lan Bragg DO Unavailable Elias Mayorga MD Primary Care Provider [phone] Reason for Visit * Reason Onset Date Comments Reminder Call 04/16/2016 [facility] Encounter Details Date Type Department Care Team (Late st Contact Info) Description 04/16/2016 Telephone [facility] [address] [place] [address] Shannon Cordon MD [address] [address] Reminder Call ([facility]) Social History Tobacco Use Types Packs/Day Years [...] encounter Miscellaneous Notes * Telephone Encounter - Sammi Williamson RN - 04/16/2016 2:32 PM AIRCRAFT STRUCTURAL REPAIRER LMOM reminding pt to transmit remotely at home today with [employer]tr[employer] box. RAFT STRUCTURAL REPAIRER documented in this encounter Plan of Treatment Upcoming Encounters Date Type Department Care Team (Late st Contact Info) Description 03/22/2024 9:00 AM AIRCRAFT STRUCTURAL REPAIRER Office Visit [facility] - [facility] [place] [address] Ernesto Hawkins MD [address] [place] [phone] documented as of this encounter Visit Diagnoses Not on filedocumented in this encounter Care Teams Enhanced Environmental Operator Relationship Specialty Start Date End Date Elias Mayorga MD [address] [place] [address] PCP - General Internal Medicine 09/07/14 Stephanie Prasad RN [address] [place] [address] Rehabilitation Teacher 10/06/13 Lan Bragg DO [address] [place] [address] Orthopedic Surgery 06/02/14 documented as of this encounter
--- OUTSIDE RECORDS SUMMARY | 2024-03-07 21:56 | XMS_ITS | Encounter Summary ---
Author Organization [facility] Address [address] [facility] [place] [address] Care Team Providers Care Finance Accounting Internship Name Role Phone Stephanie Prsaad RN Unavailable [phone] Lan Bragg DO Unavailable Elias Mayorga MD Primary Care Provider [phone] Elias Mayorga MD Unavailable [phone] Reason for Visit * Reason Onset Date Comments Preop Question 11/08/2021 Patient is sched uled for a prostate biopsy with sedation on 11/[address] Flynn [facility]. Ok to hold his Eliquis for 5 days? Please advise.Call Kenji at [phone]. Update 11/08/2021 Patient called b ack and said he spoke with Dr Flynn's office. They were ok with 3 days if that is ok with Dr Cordon. Please advise. Encounter Details Date Type Department Care Team (Late st Contact Info) Description 11/08/2021 Telephone [facility] Care [address] [place] [phone] Shannon Cordon MD [address] [place] [address] Preop Question (Patient is scheduled for a prostate biopsy with sedation on 11/[address] Flynn [facility]. Ok to hold his Eliquis for 5 days? Please advise./Call Kenji at [phone].); Update (Patient called back and said he spoke with Dr Flynn's office. They were ok with 3 days if that is ok with Dr Cordon. Please advise.) Social History Tobacco Use Types Packs/Day Years [...] encounter Miscellaneous Notes * Telephone Encounter - Ryan Parsons - 11/19/2021 11:30 AM CDT Patient was seen in the office on Friday11/16/21 * Telephone Encounter - Shannon Cordon MD - 11/08/2021 7:22 PM CDT Okay to hold Eliquis for 3 days * Telephone Encounter - Shanthi Goldman MA - 11/08/2021 4:05 PM CDT Patient called back and said he spoke with Dr Flynn's office. They were ok with 3 days if that is ok with Dr Bamimore. Please advise. Kenji: [phone]. * Telephone Encounter - Parish Wen APRN-CNP - 11/08/2021 3:54 PM CDT Last seen 05/2020, appears he was not on Eliquis at that time due to refusing and was only on ASA 325mg daily for stroke prevention and hx of DVT. Should we have him follow up or contact whoever placed him on Eliquis? Let me know. ParishPATRICIA Chen 11/08/2021 3:55 PM * Telephone Encounter - Shanthi Goldman MA - 11/08/2021 3:42 PM CDT Patient is scheduled for a prostate biopsy with sedation on 11/[address] Flynn [facility].Ok to hold his Eliquis for 5 days? Please advise. Call Kenji at [phone]. documented in this encounter Plan of Treatment Upcoming Encounters Date Type Department Care Team (Late st Contact Info) Description 03/22/2024 9:00 AM PERSONAL INJURY LEGAL ASSISTANT Office Visit [facility] - Ophthalmology [address] [place] [address] Ernesto Hawkins MD [address] [place] [phone] documented as of this encounter Visit Diagnoses Not on filedocumented in this encounter Care Teams Finance Accounting Internship Relationship Specialty Start Date End Date Elias Mayorga MD [address] [facility] [address] [place] [address] PCP - General Internal Medicine 09/07/14 Elias Mayorga MD [address] [place] [address] PCP - Attributed-[employer] EHP STL 08/25/19 08/12/22 Stephanie Prasad RN [address] [facility] [address] [place] [address] Manufactured Buildings Supervisor 10/06/13 Lan Bragg DO [address] [facility] [address] [place] [address] Orthopedic Surgery 06/02/14 documented as of this encounter
--- OUTSIDE RECORDS SUMMARY | 2024-03-07 21:56 | XMS_ITS | Encounter Summary ---
Author Organization [facility] Address [address] [place] [address] Care Team Providers Care Game Manager Name Role Phone Stephanie Prasad RN Unavailable [phone] Lan Bragg DO Unavailable Elias Mayorga MD Primary Care Provider [phone] Encounter Details Date Type Department Care Team (Late st Contact Info) Description 02/08/2016 1:40 PM DINING ROOM ATTENDANT Office Visit [facility] [address] [place] [address] Provider, [facility] [employer] [address] [place] [address] Acute maxillary sinusitis, recurrence not specified (Primary Dx) Social History Tobacco Use Types Packs/Day Years [...] Sign Reading Time Taken Comments Blood Pressure 123/77 02/08/2016 1:51 PM DINING ROOM ATTENDANT Pulse 86 02/08/2016 1:51 PM DINING ROOM ATTENDANT Temperature 36.5 ??C (97.7 ??F) 02/08/2016 1:51 PM CS T Respiratory Rate 12 02/08/2016 1:51 PM DINING ROOM ATTENDANT Oxygen Saturation 96% 02/08/2016 1:51 PM DINING ROOM ATTENDANT Inhaled Oxygen Concentration - - Weight 82.6 kg (182 lb) 02/08/2016 1:51 PM DINING ROOM ATTENDANT Height 172.7 cm (5' 8 ) 02/08/2016 1:51 PM DINING ROOM ATTENDANT Body Mass Index 27.67 02/08/2016 1:51 PM DINING ROOM ATTENDANT documented in this encounter Functional Status Functional [...] this encounter Patient Instructions * Patient Instructions* Lavon Mims, CONSULTANT INTERN-SUPERVISOR TRANSCRIBING OPERATORS - 02/08/2016 2:02 PM DINING ROOM ATTENDANT Sinusitis With or without antibiotics symptoms can last up to 2 weeks. The main treatment for respiratory infections of any kind is to get lots of rest, eat healthy, and drink a lot of fluids. Over the counter loratadine (Claritin) or cetirizine (Zyrtec) to reduce secretions. Guafenisin (Mucinex) to thin secretions Acetaminophen (Tylenol), ibuprofen (Motrin, Advil), or Aleve (naproxen) for pain or fever. Salt water gargles and throat lozenges can be helpful for sore throat. To prevent spreading the illness to others cover your sneeze and cough into your arm and not your hand, don't allow others to eat or drink with the same utensils or glass, and use hand cisco engineer before touching people or common surfaces. Warm packs to face to facilitate sinus drainage Please follow up with your PCP in 3-4 days if symptoms do not improve for further evaluation and workup TELEPHONE SUPERVISOR: Sinusitis is inflammation or infection of your sinuses. It is most often caused by a virus. Acute sinusitis may last up to 12 weeks. Chronic sinusitis lasts longer than 12 weeks. Recurrent sinusitis is when you have 3 or more episodes of sinusitis in 1 year. Common symptoms include the following: ?? Fever ?? Pain, pressure, redness, or swelling around the forehead, cheeks, or eyes ?? Thick yellow or green discharge from your nose ?? Tenderness when you touch your face over your sinuses ?? Dry cough that happens mostly at night or when you lie down ?? Headache and face pain that is worse when you lean forward ?? Teeth pain or pain when you chew Seek care immediately if: ?? Your eye and eyelid are red, swollen, and painful. ?? You cannot open your eye. ?? You have vision changes, such as double vision. ?? Your eyeball bulges out or you cannot move your eye. ?? You are more sleepy than normal, or you notice changes in your ability to think, move, or talk. ?? You have a stiff neck, a fever, or a bad headache. ?? You have swelling of your forehead or scalp. Contact your healthcare provider if: ?? Your symptoms get worse after 5 to 7 days. ?? Your symptoms do not go away after 10 days. ?? You have nausea and vomiting. ?? Your nose is bleeding. ?? You have questions or concerns about your condition or care. Treatment for sinusitis may include any of the following: ?? Acetaminophen decreases pain and fever. It is available without a doctor's order. Ask how much to take and how often to take it. Follow directions. Acetaminophen can cause liver damage if not taken correctly. ?? NSAIDs , such as ibuprofen, help decrease swelling, pain, and fever. This medicine is available with or without a doctor's order. NSAIDs can cause stomach bleeding or kidney problems in certain people. If you take blood thinner medicine, always ask if NSAIDs are safe for you. Always read the medicine label and follow directions. Do not give these medicines to children under 6 months of age without direction from your child's healthcare provider. ?? Nasal steroid sprays may help decrease inflammation in your nose and sinuses. ?? Decongestants help reduce swelling and drain mucus in the nose and sinuses. They may help you breathe easier. ?? Antihistamines help dry mucus in the nose and relieve sneezing. ?? Take your medicine as directed. Call your healthcare provider if you think your medicine is not helping or if you have side effects. Tell him if you are allergic to any medicine. Keep a list of the medicines, vitamins, and herbs you take. Include the amounts, and when and why you take them. Bring the list or the pill bottles to follow-up visits. Carry your medicine list with you in case of an emergency. Self-care: ?? Rinse your sinuses. Use a sinus rinse device to rinse your nasal passages with a saline (salt water) solution. This will help thin the mucus in your nose and rinse away pollen and dirt. It will also help reduce swelling so you can breathe normally. Ask your healthcare provider how often to do this. ?? Breathe in steam. Heat a bowl of water until you see steam. Lean over the bowl and make a tent over your head with a large towel. Breathe deeply for about 20 minutes. Be careful not to get too close to the steam or burn yourself. Do this 3 times a day. You can also breathe deeply when you take ahot shower. ?? Sleep with your head elevated. Place an extra pillow under your head before you go to sleep to help your sinuses drain. ?? Drink liquids as directed. Ask your healthcare provider how much liquid to drink each day and which liquids are best for you. Liquids will thin the mucus in your nose and help it drain. Avoid drinks that contain alcohol or caffeine. ?? Do not smoke, and avoid secondhand smoke. Nicotine and other chemicals in cigarettes and cigars can make your symptoms worse. Ask your healthcare provider for information if you currently smoke and need help to quit. E-cigarettes or smokeless tobacco still contain nicotine. Talk to your healthcare provider before you use these products. Prevent the spread of germs that cause sinusitis: Wash your hands often with soap and water. Wash your hands after you use the bathroom, change a child's diaper, or sneeze. Wash your hands before youprepare or eat food. Follow up with your healthcare provider as directed: Write down your questions so you remember to ask them during your visits. ?? 2016 [employer]. Information is for End User's use only and may not be sold, redistributed or otherwise used for commercial purposes. All illustrations and images included in CareNotes?? are the copyrighted property of [employer] or [employer]. The above information is an art museum aide only. It is not intended as medical advice for individual conditions or treatments. Talk to your doctor, nurse or pharmacist before following any medical regimen to see if it is safe and effective for you. NG ROOM ATTENDANT documented in this encounter Progress Notes * Lavon Mims APRN-CNP - 02/08/2016 1:57 PM CST [facility] PCP: Elias aMyorga MD CHIEF COMPLAINT: patient is here today c/o cough and sore throat started one week ago pt states his whole house is sick SUBJECTIVE/HPI: Kenji Camara is a 55 y.o. male presents to the Urgent Care today with complaint of cough, sore throat, headache. Cough productive in the mornings. Denies sOB, wheezing. Probable fever at the beginning. Has been taking Sudafed. Doesn't take a lot of antihistamines due to making him anxious. + ill contacts in the home. PMH: Past Medical History Diagnosis Date ??? Afib 2014 ??? Atrial flutter 12/30/2013 ??? DVT (deep venous thrombosis) left leg upper calf ??? S/P ablation of atrial flutter 01/11/14 [place]; Successful and uncomplicated ablation of typical atrial flutter circuit, PSH: Past Surgical History Procedure Laterality Date ??? Shoulder arthroscopy ??? Carpal tunnel surgery ??? Hernia repair, inguinal 04/11/11 ??? Ablation for atrial fibrillation/flutter 01/11/14 [place]; Successful and uncomplicated ablation of typical atrial flutter circuit, ??? Colonoscopy 06/16/2015 [facility] SCREEN FAM HX: Family History Problem Relation Age of Onset ??? Hypertension Mother History Social History ??? Marital status: Spouse name: N/A ??? Number of children: N/A ??? Years of education: N/A Occupational History ??? Not on file. Social History Main Topics ??? Smoking status: Never Smoker ??? Smokeless tobacco: Not on file ??? Alcohol use: 0.5 oz/week 1 Cans of beer per week Comment: 2 beers a day ??? Drug use: No ??? Sexual activity: Not on file Other Topics Concern ??? Special Diet No Social History Narrative MEDS: Current Outpatient Prescriptions on File Prior to Visit Medication Sig Dispense Refill ??? multivitamin daily (THERAGRAN) tablet Take 1 Tab by mouth daily with food ??? flecainide (TAMBOCOR) 100 MG tablet Take 1 Tab by mouth 2 times daily 180 Tab 3 ??? rosuvastatin (CRESTOR) 10 MG tablet Take 10 mg by mouth at bedtime No current facility-administered medications on file prior to visit. ALLERGY: Allergies Allergen Reactions ??? Naproxen GI Discomfort ROS: Pertinent information noted in HPI OBJECTIVE: Vitals: 02/08/16 1351 BP: 123/77 Pulse: 86 Resp: 12 Temp: 97.7 ??F SpO2: 96% Weight: 82.6 kg (182 lb) Appearance: alert,and in no distress. Eye exam - pupils equal and reactive, extraocular eye movements intact. ENT exam reveals - bilateral TM fluid noted, neck without nodes, pharynx erythematous without exudate, frontal and maxillary sinus tender, post nasal drip noted and nasal mucosa congested. Chest: clear to auscultation, no wheezes, rales or rhonchi, symmetric air entry. CVS exam: normal rate, regular rhythm, normal S1, S2, no murmurs, rubs, clicks or gallops. Skin exam - normal coloration and turgor, no rashes, no suspicious skin lesions noted. ASSESSMENT: 1. Acute maxillary sinusitis, recurrence not specified No results found for this visit on 02/08/16. PLAN: Orders Placed This Encounter ??? amoxicillin-clavulanate (AUGMENTIN) 875-125 MG tablet Sig: Take 1 Tab by mouth 2 times daily for 7 days Dispense: 14 Tab Refill: 0 Collaborative: Radha Lau MD [id number] Symptomatic care recommended: call prn if symptoms persist or worsen follow up with Elias Mayorga MD 3-5 days if no improvement AVS reviewed with patient. The Patient indicates understanding of these issues and agrees with the plan. Patient discharged to Home PATRICIA Dukes NG ROOM ATTENDANT documented in this encounter Plan of Treatment Upcoming Encounters Date Type Department Care Team (Late st Contact Info) Description 03/22/2024 9:00 AM DINING ROOM ATTENDANT Office Visit [facility] - Op[facility]mology [address] [facility] [facility], [place] [phone] Ernesto Hawkins MD [address] [place] [phone] documented as of this encounter Visit Diagnoses Diagnosis Acute maxillary sinusitis, recurrence not specified- Primary documented in this encounter Care Teams Game Manager Relationship Specialty Start Date End Date Elias Mayorga MD [address] [facility] [address] [place] [address] PCP - General Internal Medicine 09/07/14 Stephanie Prasad RN [address] [facility] [address] [place] [address] Cyanide Case Hardener 10/06/13 Lan Bragg DO [address] [facility] [address] [place] [address] Orthopedic Surgery 06/02/14 documented as of this encounter
--- OUTSIDE RECORDS SUMMARY | 2024-03-07 21:56 | XMS_ITS | Encounter Summary ---
Author Organization [facility] Address [address] [facility] [place] [address] Care Team Providers Care Strap Machine Operator Name Role Phone Stephanie Prasad RN Unavailable Lan Bragg DO Unavailable Elias Mayorga MD Primary Care Provider [phone] Reason for Visit * Reason Onset Date Comments Appointment 11/18/2018 Encounter Details Date Type Department Care Team (Late st Contact Info) Description 11/18/2018 Telephone [facility] [address] [place] [address] Pepito Baron MD [address] [place] [phone] Appointment Social History Tobacco Use Types Packs/Day Years [...] encounter Miscellaneous Notes * Telephone Encounter - Kanika Kaiser MA - 11/18/2018 1:07 PM CDT Images from the original note were not included. Pepito Baron MD Buffa, Audra L, MA Caller: Unspecified (Today, ??9:32 AM) ?? I think it depends. ??IF the patient wants to transfer his care, he needs an appt. If he does not want to transfer care, he needs nothing from us. ??When I saw him last Jan, he was deciding whether or not he wanted to continue to see Dr Fernandez Left message for patient to call back to make office visit appointment. * Telephone Encounter - Kanika Kaiser MA - 11/18/2018 9:32 AM CDT Patient was instructed to schedule a prostate biopsy in 01/2018. Patient had never called back to schedule procedure. Patient had PSA lab done in 04/17/2018 result was 3.1. Would you like him to schedule a prostate biopsy? Or ov? Will send JM message for recommendations. documented in this encounter Plan of Treatment Upcoming Encounters Date Type Department Care Team (Late st Contact Info) Description 03/22/2024 9:00 AM HOT BLASTER Office Visit [facility] - Op[facility]mology [address] [place] [phone] Ernesto Hawkins MD [address] [place] [address] documented as of this encounter Visit Diagnoses Not on filedocumented in this encounter Care Teams Strap Machine Operator Relationship Specialty Start Date End Date Elias Mayorga MD [address] [facility] [address] [place] [address] PCP - General Internal Medicine 09/07/14 Stephanie Prasad RN [address] [facility] [address] [place] [address] Storage Engineer 10/06/13 Lan Bragg DO [address] [facility] [address] [place] [address] Orthopedic Surgery 06/02/14 documented as of this encounter
--- OUTSIDE RECORDS SUMMARY | 2024-03-07 21:56 | XMS_ITS | Encounter Summary ---
Author Organization [facility] Address [address] [place] [address] Care Team Providers Care Cage Manager Name Role Phone Stephanie Prasad RN Unavailable [phone] Lan Bragg DO Unavailable Elias Mayorga MD Primary Care Provider [phone] Encounter Details Date Type Department Care Team (Late st Contact Info) Description 07/27/2017 Telephone [facility] [address] [facility], [address] [place] [address] Lisa Coates, CABLE HOOKER[address] [address] Social History Tobacco Use Types Packs/Day Years [...] encounter Miscellaneous Notes * Telephone Encounter - Lisa Mann APRN-CNP - 07/27/2017 3:47 PM CDT I called the pt to discuss their visit and urine culture results. After verifying the two pt identifiers the pt and I discussed their visit and urine culture results. They stated the visit went well and they are doing better since their visit. They deny having any questions. I advised them we are always here if they need us or they can call their PCP. The pt verbalized their understanding and wasagreeable to the plan of care. documented in this encounter Plan of Treatment Upcoming Encounters Date Type Department Care Team (Late st Contact Info) Description 03/22/2024 9:00 AM FLOOD CONTROL ENGINEER Office Visit [facility] - Ophthalmology [address] [place] [phone] Ernesto Hawkins MD [address] [place] [address] documented as of this encounter Visit Diagnoses Not on filedocumented in this encounter Care Teams Cage Manager Relationship Specialty Start Date End Date Elias Mayorga MD [address] [place] [address] PCP - General Internal Medicine 09/07/14 Stephanie Prasad RN [address] [place] [address] Blackener 10/06/13 Lan Bragg DO [address] [place] [address] Orthopedic Surgery 06/02/14 documented as of this encounter
--- OUTSIDE RECORDS SUMMARY | 2024-03-07 21:56 | XMS_ITS | Encounter Summary ---
Author Organization [facility] Address [address] [place] [address] Care Team Providers Care Puffer Tender Name Role Phone Stephanie Prasad RN Unavailable [phone] Lan Bragg DO Unavailable Elias Mayorga MD Primary Care Provider [phone] Elias Mayorga MD Unavailable [phone] Reason for Referral * Procedure (Routine) - Closed Specialty Diagnoses / Procedures Referred By Rosa espinosa Referred To Contact Cardiology Diagnoses Palpitations History of atrial flutter Procedures EKG 12-LEAD Shannon Cordon MD [address] [place] [address] [address] [place] [address] [facility] [address] [facility], [address] [place] [address] Referral ID Status Reason Start Date Expiration Date Visits Re quested Visits Authorized [id number] Closed 10/16/2020 10/16/2021 1 1 Encounter Details Date Type Department Care Team (Latest Contact Info) Description 10/16/2020 10:45 AM CDT Clinical Support [facility] [address] [facility] [address] [place] [address] Palpitations ; History of atrial flutter Social History Tobacco [...] as of this encounter Progress Notes * Shanthi Goldman MA - 10/16/2020 11:03 AM CDT Pt is here today for an EKG only per Dr. Cordon Heart rate is 70 bpm. QRS: 86 ms QT: 386 ms Qtc: 416 ms UT: 166 ms P: 63 ms P / R / T : 63/38/ 46 axes EKG has been signed off by Jn Cordon MD . documented in this encounter Plan of Treatment Upcoming Encounters Date Type Department Care Team (Late st Contact Info) Description 03/22/2024 9:00 AM QUALITY CONTROL LAB TECH Office Visit [facility] - Ophthalmology [address] [place] [phone] Ernesto Hawkins MD [address] [place] [phone] documented as of this encounter Procedures Procedure Name Priority Date/Time Associated Diagnosis Comments EKG 12-LEAD Routine 10/16/2020 11:17 AM CDT Palpitations History of atrial flutter documented in this encounter Results * EKG 12-LEAD (10/16/2020 11:17 AM CDT) Ventricular Rate 70 BPM SJ SL MED GRP MUSE Atrial Rate 70 BPM SJ SL ME D GRP MUSE P-R Interval 192 ms SJ SL M ED GRP MUSE QRS Duration ms 86 ms SJ S L MED GRP MUSE Q-T Interval ms 386 ms SJ S L MED GRP MUSE QTC Calculation (Bezet) 416 ms SJ SL MED GRP MUSE Calculated P Sacul 63 degrees SJ SL MED GRP MUSE Calculated R Sacul 38 degrees SJ SL MED GRP MUSE Calculated T Sacul 46 degrees SJ SL MED GRP MUSE Interpretation EKG Normal sinus rhythm , rsr' in V1 Normal ECG Confirmed by Shannon Cordon ([id number]) on 10/19/2020 8:16:27 PM SJ SL MED GRP MUSE 10/16/2020 11:1 7 AM CDT 10/19/2020 8:16 PM CDT Shannon Cordon MD ECG ORDERABLES SJ SL MED GRP MUSE documented in this encounter Visit Diagnoses Diagnosis Palpitations- Primary History of atrial flutter Personal history of other diseases of circulatory system documented in this encounter Care Teams Puffer Tender Relationship Specialty Start Date End Date Elias Mayorga MD [address] [place] [address] PCP - General Internal Medicine 09/07/14 Elias Mayorga MD [address] [place] [address] PCP - Attributed-[employer] [facility] STL 08/25/19 08/12/22 Stephanie Prasad RN [address] [place] [address] Manager Of Corporate 10/06/13 Lan Bragg DO [address] [facility] [address] [place] [address] Orthopedic Surgery 06/02/14 documented as of this encounter
--- OUTSIDE RECORDS SUMMARY | 2024-03-07 21:56 | XMS_ITS | Encounter Summary ---
Author Organization [facility] Address [address] [place] [address] Care Team Providers Care Nuclear Physics Professor Name Role Phone Stephanie Prasad RN Unavailable [phone] Lan Bragg DO Unavailable Elias Mayorga MD Primary Care Provider [phone] Elias Mayorga MD Unavailable Encounter Details Date Type Department Care Team (Latest Contact Info) Description 10/16/2020 Travel Social History Tobacco Use Types Packs/Day [...] st Contact Info) Description 03/22/2024 9:00 AM OPERATING TABLE ASSEMBLER Office Visit [facility] [address] [facility], [place] [phone] Ernesto Hawkins MD [address] [place] [phone] documented as of this encounter Visit Diagnoses Not on filedocumented in this encounter Care Teams Nuclear Physics Professor Relationship Specialty Start Date End Date Elias Mayorga MD [address] [facility] [address] [place] [address] PCP - General Internal Medicine 09/07/14 Elias Mayorga MD [address] [place] [address] PCP - Attributed-[employer] [facility] STL 08/25/19 08/12/22 Stephanie Prasad RN [address] [facility] [address] [place] [address] Ophthalmic Technologist 10/06/13 Lan Bragg DO [address] [facility] [address] [place] [address] Orthopedic Surgery 06/02/14 documented as of this encounter
--- OUTSIDE RECORDS SUMMARY | 2024-03-07 21:56 | XMS_ITS | Encounter Summary ---
Author Organization [facility] Address [address] [facility] [place] [address] Care Team Providers Care Experimental Machinist Name Role Phone Stephanie Prasad RN Unavailable [phone] Lan Bragg DO Unavailable Elias Mayorga MD Primary Care Provider [phone] Reason for Visit * Auth/Cert Specialty Diagnoses / Procedures Referred By oRsa espinosa Referred To Contact Procedures COLONOSCOPY SCREEN Referral ID Status Reason Start Date Expiration Date Visits Re quested Visits Authorized [id number] 1 1 Encounter Details Date Type Department Care Team (Latest Contact Info) Description 06/16/2015 7:07 AM CDT - 06/16/2015 10:03 AM CDT Hospital Encounter [facility] - Endoscopy Services [address] [place] [address] [place] [address] [facility] [address] [phone] Surgery General Discharge Disposition: Home or Self Care Social [...] Sign Reading Time Taken Comments Blood Pressure 125/52 06/16/2015 9:05 AM CDT Pulse 74 06/16/2015 9:05 AM CDT Temperature 36 ??C (96.8 ??F) 06/16/2015 9:05 AM CDT Respiratory Rate 14 06/16/2015 9:05 AM CDT Oxygen Saturation 100% 06/16/2015 9:05 AM CDT Inhaled Oxygen Concentration - - Weight 80.7 kg (178 lb) 06/16/2015 7:52 AM CDT Height 172.7 cm (5' 8 ) 06/16/2015 7:52 AM CDT Body Mass Index 27.06 06/16/2015 7:52 AM CDT documented in this encounter Functional Status [...] 1 (one) tablet by mouth at bedtime flecainide (TAMBOCOR) 100 MG tablet Take 1 Tab by mouth 2 times daily 180 Tab 3 03/27/2015 03/12/2016 multivitamin daily (THERAGRAN) tablet Take 1 Tab by mouth daily with food 02/05/2018 documented as of this encounter H&P Notes * Shailesh Brar MD - 06/16/2015 8:29 AM CDT ENDOSCOPY PRE-PROCEDURE MEDICAL HISTORY & PHYSICAL Kenji Camara 54 y.o. male BP 125/91 mmHg Pulse 67 Temp(Src) 98 ??F Resp 18 Wt 178 lb (80.74 kg) BMI 27.07 kg/m2 History: Past Medical History Diagnosis Date ??? Atrial flutter 12/30/2013 ??? S/P ablation of atrial flutter 01/11/14 [place]; Successful and uncomplicated ablation of typical atrial flutter circuit, ??? DVT (deep venous thrombosis) left leg upper calf ??? Afib 2015 Allergies Allergen Reactions ??? Naproxen GI Discomfort Prescriptions prior to admission Medication Sig Dispense Refill ??? flecainide (TAMBOCOR) 100 MG tablet Take 1 Tab by mouth 2 times daily 180 Tab 3 ??? multivitamin daily (THERAGRAN) tablet Take 1 Tab by mouth daily with food ??? rosuvastatin (CRESTOR) 10 MG tablet Take 10 mg by mouth at bedtime Current Facility-Administered Medications Medication Dose Route Frequency Provider Last Rate Last Dose ??? 0.9% NaCl infusion Intravenous Continuous Shailesh Brar MD 20 mL/hr at 06/16/15 0748 Physicial Exam: Physical exam is normal ASA Evaluation and Anesthesia Plan: Anesthesia administered per Anesthesia Department Indication(s) for Procedure: Colon Screen - low risk Procedure Planned: Colonoscopy Shailesh Brar MD documented in this encounter Plan of Treatment Upcoming Encounters Date Type Department Care Team (Late st Contact Info) Description 03/22/2024 9:00 AM CITY BUS DRIVER Office Visit [facility] - Ophthalmology [address] [place] [phone] Ernesto Hawikns MD [address] [place] [phone] documented as of this encounter Procedures Procedure Name Priority Date/Time Associated Diagnosis Comments COLONOSCOPY SCREEN 06/16/2015 8: 28 AM CDT ENDOSCOPY, COLON, SCREENING Routine 06/16/2015 8:27 AM CDT documented in this encounter Results * ENDOSCOPY, COLON, SCREENING (06/16/2015 8:27 AM CDT) Report Endoscopy POC _ Patient Name: Kenji Cuddeback ?Procedure Date: 06/16/2015 8:27 AM ? Date [...] the physician, the ? nurse and the appointment manager in the procedure room. Mental ? Status [...] Procedure Code(s): ? --- Professional --- ? 85417, Colonoscopy, flexible; diagnostic, including collection of ? specimen(s) by brushing or washing, when performed (separate procedure) ? --- Technical --- ? 64921, Colonoscopy, flexible; diagnostic, including collection of ? specimen(s) by brushing or washing, when performed (separate procedure) Diagnosis Code(s): ? --- Professional --- ? K64.8, Other hemorrhoids ? Z12.11, Encounter for screening for malignant neoplasm of colon ? --- Technical --- ? K64.8, Other hemorrhoids ? Z12.11, Encounter for screening for malignant neoplasm of colon CPT copyright 2015 [employer]. All rights reserved. The codes documented in this report are preliminary and upon professional fee coder review may be revised to meet current compliance requirements. Dr. Shailesh Brar MD Shailesh Brar MD 06/16/2015 8:52:37 AM This report has been signed electronically. Number of Addenda: 0 Note Initiated On: 06/16/2015 8:27 AM [facility] ENDOSCOPY 06/16/2015 8:27 AM CDT Shailesh Brar MD GI PROCEDURE ORDERA BUN[facility] [place] [address] documented in this encounter Visit Diagnoses Not on filedocumented in this encounter Administered Medications Inactive Administered Medications - up to 3 most recent administrations Medication Order MAR Action Action Date Dose Rate Site 0.9% NaCl infusion at 20 mL/hr, Intravenous, CONTINUOUS, Starting on Fri06/16/15 at 0830, Until Fri06/16/15 at 1104, Intra-procedure (GI) $ New Bag/Syringe 06/16/2015 8:28 AM CDT $ New Bag/Syringe 06/16/2015 7:48 AM CDT 20 mL/ hr documented in this encounter Active and Recently Administered Medications Times are shown in CDT. Continuous Medication Order 06/14/2015 06/15/2015 06/16/2015 0.9% NaCl infusion (CANCELED) at 20 mL/hr, Intravenous, CONTINUOUS, Starting on Fri06/16/15 at 0830, Until Fri06/16/15 at 1104, Intra-procedure (GI) 0748 ($ New Bag/Syri nge - Provider: Martha Olivier RN)0828 ($ New Bag/Syringe - Provider: Jona Liao APRN-MAINTENANCE OF WAY SUPERINTENDENT)0849 (Anesthesia Volume Adjustment - Provider: Jona Liao APRN-MAINTENANCE OF WAY SUPERINTENDENT) documented in this encounter Care Teams Experimental Machinist Relationship Specialty Start Date End Date Elias Mayorga MD [address] [place] [address] PCP - General Internal Medicine 09/07/14 Stephanie Prasad RN [address] [place] [address] Single Resource Boss 10/06/13 Lan Bragg DO [address] [place] [address] Orthopedic Surgery 06/02/14 documented as of this encounter
--- OUTSIDE RECORDS SUMMARY | 2024-03-07 21:56 | XMS_ITS | Encounter Summary ---
Author Organization [facility] Address [address] [facility] [place] [address] Care Team Providers Care Bay Stocker Name Role Phone Stephanie Prasad RN Unavailable Lan Bragg DO Unavailable Elias Mayorga MD Primary Care Provider [phone] Encounter Details Date Type Department Care Team (Late st Contact Info) Description 05/30/2016 Orders Only [facility] Heart & Vascular Care [address] [facility] [address] [place] [address] Shannon Cordon MD [address] [address] PAF (paroxysmal atrial fibrillation) (HCC) Social History Tobacco Use Types Packs/Day [...] st Contact Info) Description 03/22/2024 9:00 AM VOCATIONAL NURSING INSTRUCTOR Office Visit [facility] - Ophthalmology [address] [place] [phone] Ernesto Hawkins MD [facility] [place] [phone] documented as of this encounter Visit Diagnoses Diagnosis PAF (paroxysmal atrial fibrillation) (HCC)- Primary Atrial fibrillation documented in this encounter Care Teams Bay Stocker Relationship Specialty Start Date End Date Elias Mayorga MD [address] [facility] [address] [place] [address] PCP - General Internal Medicine 09/07/14 Stephanie Prasad RN [address] [facility] [address] [place] [address] Licensing Analyst 10/06/13 Lan Bragg DO [address] [facility] [address] [place] [address] Orthopedic Surgery 06/02/14 documented as of this encounter
--- OUTSIDE RECORDS SUMMARY | 2024-03-07 21:56 | XMS_ITS | Encounter Summary ---
Author Organization [facility] Address [address] [place] [address] Care Team Providers Care Director Of Programming Name Role Phone Stephanie Prasad RN Unavailable Lan Bragg DO Unavailable Elias Mayorga MD Primary Care Provider [phone] Reason for Visit * Reason Comments Refill Request Encounter Details Date Type Department Care Team (Late st Contact Info) Description 05/28/2018 Refill [facility] Heart [facility] Vascular Care [address] [phone] Shannon Cordon MD [address] [address] Refill Request Social History Tobacco Use Types Packs/Day Years [...] encounter Miscellaneous Notes * Telephone Encounter - Mariana Ruiz - 05/28/2018 4:21 PM CDT Please sign pended medication: Last office visit with Jn Cordon MD Visit date not found Next office visit with Jn Cordon MD 06/12/2018 documented in this encounter Plan of Treatment Upcoming Encounters Date Type Department Care Team (Late st Contact Info) Description 03/22/2024 9:00 AM CHAMPAGNE MAKER Office Visit [facility] - Ophthalmology [facility] [place] [phone] Ernesto Hawkins MD [address] [place] [phone] documented as of this encounter Visit Diagnoses Not on filedocumented in this encounter Care Teams Director Of Programming Relationship Specialty Start Date End Date Elias Mayorga MD [address] [facility] [address] [place] [address] PCP - General Internal Medicine 09/07/14 Stephanie Prasad RN [address] [facility] [address] [place] [address] Business Developer 10/06/13 Lan Bargg DO [address] [facility] [address] [place] [address] Orthopedic Surgery 06/02/14 documented as of this encounter
--- OUTSIDE RECORDS SUMMARY | 2024-03-07 21:56 | XMS_ITS | Encounter Summary ---
Author Organization [facility] Address [address] [facility] [place] [address] Care Team Providers Care Director Speech And Hearing Name Role Phone Stephanie Prasad RN Unavailable [phone] Lan Bragg DO Unavailable Elias Mayorga MD Primary Care Provider [phone] Elias Mayorga MD Unavailable [phone] Reason for Visit * Reason Comments Event Monitor Placement Encounter Details Date Type Department Care Team (Late st Contact Info) Description 10/19/2020 3:00 PM CDT Procedure visit [facility] Heart & Vascular Care [address] [place] [phone] Palpitations Social History Tobacco Use Types [...] Procedure Notes * Shannon Cordon MD - 10/27/2020 12:13 PM CDTAssociated Order(s): EVENT MONITOR [facility] CARDIAC EVENT MONITOR Pts name: Kenji Camara : 1960 Ordering Physician: Dr. Cordon Reading Physician: Dr. Cordon Date of service: 10/19/20 and continued until [...] removing and replacing his loop recorder. Jn Cordon MD documented in this encounter Plan of Treatment Upcoming Encounters Date Type Department Care Team (Late st Contact Info) Description 03/22/2024 9:00 AM SIZER MACHINE Office Visit [facility] - Ophthalmology [address] [place] [phone] Ernesto Hawkins MD [address] [place] [phone] documented as of this encounter Procedures Procedure Name Priority Date/Time Associated Diagnosis Comments EVENT MONITOR Routine 10/19/2020 Palpitations documented in this encounter Results * EVENT MONITOR (10/19/2020) 10/19/2020 Narrative 10/19/2020 Shannon Cordon MD ? 10/31/2020 ??6:34 AM [facility] CARDIAC EVENT MONITOR ?? Pts name: Kenji Berta Camara : 1960 Ordering Physician: Dr. Bravo Palmer Physician: Dr. Cordon Date of service: 10/19/20 and continued until [...] removing and replacing his loop recorder. Jn Cordon MD ?? Procedure Note Shannon Cordon MD - 10/27/2020 12:13 PM CDT [facility] CARDIAC EVENT MONITOR Pts name: Kenji Hampton Jax : 1960 Ordering Physician: Dr. Bravo Palmer Physician: Dr. Cordon Date of service: 10/19/20 and continued until [...] removing and replacing his loop recorder. Jn Cordon MD Shannon Cordon MD CARDIAC SERVICES ORDERABLES documented in this encounter Visit Diagnoses Diagnosis Palpitations- Primary documented in this encounter Care Teams Director Speech And Hearing Relationship Specialty Start Date End Date Elias Mayorga MD [address] [facility] [address] [place] [address] PCP - General Internal Medicine 09/07/14 Elias Mayorga MD [address] [place] [address] PCP - Attributed-[employer] [facility] STL 08/25/19 08/12/22 Stephanie Prasad RN [address] [facility] [address] [place] [address] Program Manager Slp 10/06/13 Lan Bragg DO [address] [facility] [address] [place] [address] Orthopedic Surgery 06/02/14 documented as of this encounter
--- OUTSIDE RECORDS SUMMARY | 2024-03-07 21:56 | XMS_ITS | Encounter Summary ---
Author Organization [facility] Address [address] [facility] [place] [address] Care Team Providers Care Supervisory Historian Name Role Phone Stephanie Prasad RN Unavailable [phone] Lan Bragg DO Unavailable Elias Mayorga MD Primary Care Provider [phone] Reason for Visit * Reason Onset Date Comments Reminder Call 05/16/2015 Carelink Encounter Details Date Type Department Care Team (Late st Contact Info) Description 05/16/2015 Telephone [facility] Heart & Vascular Care [address] [place] [address] Shannon Cordon MD [address] [address] Reminder Call (Carelink) Social History Tobacco Use Types Packs/Day Years Used Date Smoking Tobacco: Never Alcohol Use Standard Drinks/Week Comments Yes 0.8 (1 standard drink = 0.6 oz p ure alcohol) Sex and Gender Information Value Date Recorded Sex Assigned at Not on file Gender Identity Not on file Sexual Orientation Not on file documented as of this encounter Functional Status Functional Status Response Date of Assess ment Is person deaf or have serious hearing difficult y? No 01/11/2014 Is person blind or have serious difficulty seein g? No 01/11/2014 Does person have serious dif ficulty walking/climbing stairs? No 01/11/2014 Does person have difficulty dressing/bathing? No 01/11/2014 Does person have difficulty doing errands alone? No 01/11/2014 Cognitive Status Response Date of Assessm ent Does person have difficulty concentrating/remembering/making decisions? No 01/11/2014 documented as of this encounter Miscellaneous Notes * Telephone Encounter - Molly Lozoya - 05/16/2015 5:25 PM CDT LMOM reminding pt to transmit remotely at home today with [employer]tr[employer] box. documented in this encounter Plan of Treatment Upcoming Encounters Date Type Department Care Team (Late st Contact Info) Description 03/22/2024 9:00 AM FINANCING ANALYST Office Visit [facility] - Ophthalmology [address] [place] [phone] Ernesto Hawkins MD [address] [place] [phone] documented as of this encounter Visit Diagnoses Not on filedocumented in this encounter Care Teams Supervisory Historian Relationship Specialty Start Date End Date Elias Mayorga MD [address] [facility] [address] [place] [address] PCP - General Internal Medicine 09/07/14 Stephanie Prasad RN [address] [place] [address] Cardiovascular Or Nurse 10/06/13 Lan Bragg DO [address] [place] [address] Orthopedic Surgery 06/02/14 documented as of this encounter
--- OUTSIDE RECORDS SUMMARY | 2024-03-07 21:56 | XMS_ITS | Encounter Summary ---
Author Organization [facility] Address [address] [place] [address] Care Team Providers Care Customs And Immigration Officer Name Role Phone Stephanie Prasad RN Unavailable Lan Bragg DO Unavailable Elias Mayorga MD Primary Care Provider [phone] Reason for Referral * Radiology Services (Routine) - Closed Specialty Diagnoses / Procedures Referred By Rosa espinosa Referred To Contact Diagnoses Elevated LFTs Procedures US ABDOMEN LIMITED Elias Mayorga MD [address] [place] [address] Referral ID Status Reason Start Date Expiration Date Visits Re quested Visits Authorized [id number] Closed 05/11/2019 11/07/2019 1 1 Reason for Visit * Radiology Services (Routine) - Closed Specialty Diagnoses / Procedures Referred By Rosa espinosa Referred To Contact Diagnoses Elevated LFTs Procedures US ABDOMEN LIMITED Elias Mayorga MD [address] [place] [address] Referral ID Status Reason Start Date Expiration Date Visits Re quested Visits Authorized [id number] Closed 05/11/2019 11/07/2019 1 1 Encounter Details Date Type Department Care Team (Latest Contact Info) Description 05/12/2019 6:58 AM CDT - 05/12/2019 11:59 PM CDT Hospital Encounter [facility] Health Imaging Services - Ultrasound [address] [place] [address] [place] [address] Elias Mayorga MD [address] [facility] [address] [place] [address] Discharge Disposition: Home or Self Care Social [...] Sig Dispensed Refills Start Date End Date B Complex Vitamins (VITAMIN B COMPLEX PO) rosuvastatin (CRESTOR) 10 MG tablet Take 1 (one) tablet by mouth at bedtime aspirin EC (ECOTRIN) 325 MG tabletIndications:Ty pical atrial flutter (HCC),Paroxysmal atrial fibrillation (HCC) Take 325 mg by mouth once daily 10/16/2020 flecainide (TAMBOCOR) 100 MG tablet TAKE 1 TABLET BY MOUTH TWICE DAILY 180 tablet 05/29/2018 09/20/2022 hydrocortisone (ANUSOL-HC) 25 MG suppository Insert 1 suppository into the rectum 2 times daily as needed for Hemorrhoids 15 suppository 07/26/2017 01/17/2021 documented as of this encounter Plan of Treatment Upcoming Encounters Date Type Department Care Team (Late st Contact Info) Description 03/22/2024 9:00 AM BAND MASTER Office Visit [facility] - Ophthalmology [address] [place] [phone] Ernesto Hawkins MD [facility] [place] [phone] documented as of this encounter Procedures Procedure Name Priority Date/Time Associated Diagnosis Comments US ABDOMEN LIMITED Routine 05/12/2019 7: 35 AM CDT Elevated LFTs documented in this encounter Results * US ABDOMEN LIMITED (05/12/2019 7:35 AM [...] 9:03 AM Elias Mayorga MD US ORDERABLES documented in this encounter Visit Diagnoses Diagnosis Elevated LFTs Other abnormal blood chemistry documented in this encounter Care Teams Customs And Immigration Officer Relationship Specialty Start Date End Date Elias Mayorga MD [address] [facility] [address] [place] [address] PCP - General Internal Medicine 09/07/14 Stephanie Prasad RN [address] [place] [address] Project Reservoir Engineer 10/06/13 Lan Bragg DO [address] [place] [address] Orthopedic Surgery 06/02/14 documented as of this encounter
--- OUTSIDE RECORDS SUMMARY | 2024-03-07 21:56 | XMS_ITS | Encounter Summary ---
Author Organization [facility] Address [address] [place] [address] Care Team Providers Care Assistant Child Care Teacher Name Role Phone Stephanie Prasad RN Unavailable [phone] Lan Bragg DO Unavailable Elias Mayorga MD Primary Care Provider [phone] Encounter Details Date Type Department Care Team (Late Contact Info) Description 11/18/2018 Orders Only [facility] [address] [place] [address] Document, Scanned Social History Tobacco Use Types Packs/Day Years [...] Encounters Date Type Department Care Team (Late Contact Info) Description 03/22/2024 9:00 AM FOREIGN EXCHANGE STUDENT COORDINATOR Office Visit [facility] - Ophthalmology [address] [facility] [place] [phone] Ernesto Hawkins MD [address] [place] [phone] documented as of this encounter Procedures Procedure Name Priority Date/Time Associated Diagnosis Comments LAB RESULTS ORDER Routine 04/13/2018 documented in this encounter Results * LAB RESULTS ORDER (04/13/2018) Scanned Document LAB - THERAPEUTIC DR [facility] MONITORING ORDERABLES documented in this encounter Visit Diagnoses Not on filedocumented in this encounter Care Teams Assistant Child Care Teacher Relationship Specialty Start Date End Date Elias Mayorga MD [address] [facility] [address] [place] [address] PCP - General Internal Medicine 09/07/14 Stephanie Prasad RN [address] [facility] [address] [place] [address] Retail Assistant 10/06/13 Lan Bragg DO [address] [facility] [address] [place] [address] Orthopedic Surgery 06/02/14 documented as of this encounter
--- OUTSIDE RECORDS SUMMARY | 2024-03-07 21:56 | XMS_ITS | Encounter Summary ---
Author Organization [facility] Address [address] [place] [address] Care Team Providers Care Dust Control Engineer Name Role Phone Stephanie Prasad RN Unavailable [phone] Lan Bragg DO Unavailable Elias Mayorga MD Primary Care Provider [phone] Encounter Details Date Type Department Care Team (Latest Contact Info) Description 07/26/2017 10:22 AM CDT - 07/26/2017 11:25 AM CDT Hospital Encounter [facility] [address] [place] [address] Lindsay Ojeda, GUN FERTILIZER-ALL SOURCE INTELLIGENCE ANALYST [address] [place] [id number] Urgent Care Discharge Disposition: Home or Self Care Social History Tobacco Use Types Packs/Day Years Used Date Smoking Tobacco: Never Smokeless Tobacco: Never Tobacco Cessation:Counseling Given: No Alcohol Use Standard Drinks/Week Comments Yes 0.8 (1 standard drink = 0.6 oz p ure alcohol) 2 beers a day Sex and Gender Information Value Date Recorded Sex Assigned at Not on file Gender Identity Not on file Sexual Orientation Not on file documented as of this encounter Last Filed Vital Signs Vital Sign Reading Time Taken Comments Blood Pressure 150/95 07/26/2017 10:43 AM CDT Pulse 67 07/26/2017 10:43 AM CDT Temperature 36.3 ??C (97.4 ??F) 07/26/2017 10:43 AM C DT Respiratory Rate 18 07/26/2017 10:43 AM CDT Oxygen Saturation 100% 07/26/2017 10:43 AM CDT Inhaled Oxygen Concentration - - Weight 81.6 kg (180 lb) 07/26/2017 10:43 AM CDT Height 172.7 cm (5' 8 ) 07/26/2017 10:43 AM CDT Body Mass Index 27.37 07/26/2017 10:43 AM CDT documented in this encounter Functional [...] this encounter Discharge Instructions * Patient Instructions* Lindsay Ojeda, GUN FERTILIZER-ALL SOURCE INTELLIGENCE ANALYST - 07/26/2017 11:43 AM CDT Images from the original note were not included. Symptomatic care recommended: Push fluids and stay hydrated. Changing some daily habits may help a person prevent recurrent UTIs. Eating, Diet, and Nutrition Drinking lots of fluid can help flush bacteria from the system. Water is best. Most people should try for six to eight, 8-ounce glasses a day. A person who has kidney failure should not drink this much fluid. A health care provider should be consulted to learn how much fluid is healthy. Urination Habits A person should urinate often and when the urge arises. Bacteria can grow when urine stays in the bladder too long. Women and men should urinate shortly after sex to flush away bacteria that might have entered the urethra during sex. Drinking a glass of water will also help flush bacteria away. For constipation: Give 1/2 capful of miralax with 1 cup of apple juice every 12 hours x 3 doses. Followed by 1/2 capful of miralax with 1 cup of apple juice daily until stools are soft and regular. Increase water intake. Follow up with Elias Mayorga MD in 3days if symptoms persist, sooner if symptoms worsen. GO TO EMERGENCY ROOM FOR ANY SEVERE PAINS, INABILITY TO PASS SOFIA, STOOL OR URINE OR FOR ANY WORSENING SYMPTOMS. Constipation WHAT YOU NEED TO KNOW: What is constipation? Constipation is when you have hard, dry bowel movements, or you go longer than usual between bowel movements. What causes constipation? ?? Not enough water or high-fiber foods ?? Lack of physical activity ?? Medicine used to treat pain, depression, or high blood pressure ?? Medical conditions, such as hemorrhoids, diabetes, or a stroke What are the signs and symptoms of constipation? ?? Difficulty pushing out your bowel movement ?? Pain or bleeding during your bowel movement ?? A feeling that you did not finish having your bowel movement ?? Nausea ?? Bloating ?? Headache How is constipation treated? Medicine or a fiber supplement may help make your bowel movement softer. A laxative may help relax and loosen your intestines to help you have a bowel movement. You may also be given medicine to increase fluid in your intestines. The fluid may help move bowel movements through your intestines. How can I manage my symptoms? ?? Drink liquids as directed. You may need to drink extra liquids to help soften and move your bowels. Ask how much liquid to drink each day and which liquids are best for you. ?? Eat high-fiber foods. This may help decrease constipation by adding bulk to your bowel movements. High-fiber foods include fruit, vegetables, whole-grain breads and cereals, and beans. Your healthcare provider or dietitian can help you create a high-fiber meal plan. ?? Exercise regularly. Regular physical activity can help stimulate your intestines. Ask which exercises are best for you. ?? Schedule a time each day to have a bowel movement. This may help train your body to have regularbowel movements. Bend forward while you are on the toilet to help move the bowel movement out. Sit on the toilet for at least 10 minutes, even if you do not have a bowel movement. When should I seek immediate care? ?? You have blood in your bowel movements. ?? You have a fever and abdominal pain with constipation. When should I contact my healthcare provider? ?? Your constipation gets worse. ?? You start to vomit. ?? You have questions or concerns about your condition or care. CARE AGREEMENT: You have the right to help plan your care. Learn about your health condition and how it may be treated. Discuss treatment options with your caregivers to decide what care you want to receive. You always have the right to refuse treatment. The above information is an delivery aide only. It is not intended as medical advice for individual conditions or treatments. Talk to your doctor, nurse or pharmacist before following any medical regimen to see if it is safe and effective for you. ?? 2017 [employer] Information is for End User's use only and may not be sold, redistributed or otherwise used for commercial purposes. All illustrations and images included in CareNotes?? are the copyrighted property of [employer], [employer] or [employer]. Urinary Tract Infection in Men WHAT YOU NEED TO KNOW: What is a urinary tract infection (UTI)? A UTI is caused by bacteria that get inside your urinary tract. Most bacteria that enter your urinary tract come out when you urinate. If the bacteria stay inyour urinary tract, you may get an infection. Your urinary tract includes your kidneys, ureters, bladder, and urethra. Urine is made in your kidneys, and it flows from the ureters to the bladder. Urine leaves the bladder through the urethra. A UTI is more common in your lower urinary tract, which includes your bladder and urethra. What increases my risk for a UTI? ?? A urinary catheter or self-catheterization ?? Incontinence (not able to control when you urinate) ?? Urinary tract problems, such as narrowing, kidney stones, or not being able to empty your bladder completely ?? Not being circumcised ?? Past UTI or urinary tract surgery ?? Elderly age ?? Obesity or diabetes What are the signs and symptoms of a UTI? ?? Urinating more often than usual, leaking urine, or waking from sleep to urinate ?? Pain or burning when you urinate ?? Pain or pressure in your lower abdomen or back ?? Urine that smells bad ?? Blood in your urine How is a UTI diagnosed? Your healthcare provider will ask about your signs and symptoms. Your provider may press on your abdomen, sides, and back to check if you feel pain. Your urine will be tested for bacteria that may be causing your infection. If you have UTIs often, you may need other tests tofind the cause. How is a UTI treated? ?? Antibiotics help fight a bacterial infection. ?? Medicines may be given to decrease pain and burning when you urinate. They will also help decrease the feeling that you need to urinate often. These medicines will make your urine orange or red. What can I do to prevent a UTI? ?? Empty your bladder often. Urinate and empty your bladder as soon as you feel the need. Do not hold your urine for long periods of time. ?? Drink liquids as directed. Ask how much liquid to drink each day and which liquids are best for you. You may need to drink more liquids than usual to help flush out the bacteria. Do not drink alcohol, caffeine, or citrus juices. These can irritate your bladder and increase your symptoms. Your healthcare provider may recommend cranberry juice to help prevent a UTI. ?? Urinate after you have sex. This can help flush out bacteria passed during sex. ?? Do pelvic muscle exercises often. Pelvic muscle exercises may help you start and stop urinating.Strong pelvic muscles may help you empty your bladder easier. Squeeze these muscles tightly for 5 seconds like you are trying to hold back urine. Then relax for 5 seconds. Gradually work up to squeezing for 10 seconds. Do 3 sets of 15 repetitions a day, or as directed. When should I seek immediate care? ?? You are urinating very little or not at all. ?? You have a high fever with shaking chills. ?? You have side or back pain that gets worse. When should I contact my healthcare provider? ?? You have a mild fever. ?? You do not feel better after 2 days of taking antibiotics. ?? You are vomiting. ?? You have new symptoms, such as blood or pus in your urine. ?? You have questions or concerns about your condition or care. CARE AGREEMENT: You have the right to help plan your care. Learn about your health condition and how it may be treated. Discuss treatment options with your caregivers to decide what care you want to receive. You always have the right to refuse treatment. The above information is an delivery aide only. It is not intended as medical advice for individual conditions or treatments. Talk to your doctor, nurse or pharmacist before following any medical regimen to see if it is safe and effective for you. ?? 2017 [employer] Information is for End User's use only and may not be sold, redistributed or otherwise used for commercial purposes. All illustrations and images included in CareNotes?? are the copyrighted property of [employer] or [employer]. documented in this encounter Medications at Time of Discharge Medication Sig Dispensed Refills Start Date End Date rosuvastatin (CRESTOR) 10 MG tablet Take 1 (one) tablet by mouth at bedtime aspirin EC (ECOTRIN) 325 MG tabletIndications:Typica l atrial flutter (HCC),Paroxysmal atrial fibrillation (HCC) Take 325 mg by mouth once daily 10/16/2020 flecainide (TAMBOCOR) 100 MG tablet Take 1 tablet by mouth 2 times daily for 90 days 180 tablet 3 06/13/2017 09/10/2017 multivitamin daily (THERAGRAN) tablet Take 1 Tab by mouth daily with food 02/05/2018 documented as of this encounter Progress Notes * Lindsay Ojeda APRN-CNP - 07/26/2017 11:13 AM CDT [facility] at [facility] - department of [facility] PCP: Elias Mayorga MD CHIEF COMPLAINT: Constipation SUBJECTIVE: Kenji Camara is a 56 y.o. male who presents to clinic today with complaints of constipation, burning upon urination and hemorrhoids. Kenji Camara reports he felt constipated Friday (4 days ago) , but it resolved itself and returned (2 days ago) . He took some mirilax yesterday and had thin ribbons of stool as a result. He reports having internal hemorrhoids and suspects this is what caused the thin stool. Last night he began to noticed a little discomfort after urinating. Woke up in the middle of the night and it was uncomfortable to urinate, burning. Reports a throbbing pressure in his rectum do to internal hemorrhoids. Diagnosed with prostate Ca a number of months ago - did a biopsy and states he is on 'active surveillance since his prostate is not enlarged and psa is going down. He doesn't feel like he is fully emptying his bladder since he is having to urinate more frequentlytoday. Reports it is incredibly uncomfortable in the urethra near the opening of the penis and in his rectum - this sensation feels better after urinating but then returns. Kenji denies any abdominal pain, distension, flank pain or N/V/D. No blood in the stools. Denies any STD risk or penile discharge. Denies any testicular pain or swelling. When hemorrhoids gets inflamed he uses OTC suppository and cream from Dr. Mayorga. Admits to a horrible diet recently. Past Medical History: Diagnosis Date ??? Afib 2014 ??? Atrial flutter 12/30/2013 ??? DVT (deep venous thrombosis) left leg upper calf ??? S/P ablation of atrial flutter 01/11/14 [facility]; Successful and uncomplicated ablation of typical atrial flutter circuit, Past Surgical History: Procedure Laterality Date ??? ABLATION FOR ATRIAL FIBRILLATION/FLUTTER 01/11/14 [facility]; Successful and uncomplicated ablation of typical atrial flutter circuit, ??? CARPAL TUNNEL SURGERY ??? COLONOSCOPY 06/16/2015 COLONOSCOPY SCREEN ??? HERNIA REPAIR, INGUINAL 04/11/11 ??? 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 Cordon. [employer]. Successful and uncomplicated ILR implantation. ??? Shoulder Arthroscopy Family History Problem Relation Age of Onset ??? Hypertension Mother Social History Substance Use Topics ??? Smoking status: Never Smoker ??? Smokeless tobacco: Never Used ??? Alcohol use 0.5 oz/week 1 Cans of beer per week Comment: 2 beers a day Current Outpatient Prescriptions on File Prior to Encounter Medication Sig Dispense Refill ??? flecainide (TAMBOCOR) 100 MG tablet Take 1 tablet by mouth 2 times daily for 90 days 180 tablet3 ??? aspirin EC (ECOTRIN) 325 MG tablet Take 325 mg by mouth once daily ??? multivitamin daily (THERAGRAN) tablet Take 1 Tab by mouth daily with food ??? rosuvastatin (CRESTOR) 10 MG tablet Take 10 mg by mouth at bedtime No current facility-administered medications on file prior to encounter. Allergies Allergen Reactions ??? Naproxen GI Discomfort Review of Systems - History obtained from chart review and the patient General ROS: negative for - chills, fatigue or fever ENT ROS: negative for - headaches Respiratory ROS: no cough, shortness of breath, or wheezing Cardiovascular ROS: no chest pain or dyspnea on exertion Gastrointestinal ROS: positive for - constipation, hemorrhoids negative for - abdominal pain, blood in stools, diarrhea, gas/bloating, heartburn, hematemesis or nausea/vomiting Genito-Urinary ROS: positive for - dysuria and urinary frequency/urgency negative for - genital discharge, hematuria, incontinence or scrotal mass/pain Musculoskeletal ROS: negative Neurological ROS: negative Dermatological ROS: negative OBJECTIVE: Vitals: 07/26/17 1043 BP: 150/95 Pulse: 67 Resp: 18 Temp: 97.4 ??F (36.3 ??C) SpO2: 100% Weight: 81.6 kg (180 lb) Pain Assessment Pain Score: Eight Appearance alert, well appearing, and in no distress, oriented to person, place, and time, overweight and well hydrated. Very pleasant male. Chest clear to auscultation, no wheezes, rales or rhonchi, symmetric air entry CVS exam normal rate, regular rhythm, normal S1, S2, no murmurs, rubs, clicks or gallops Abdominal exam soft, nontender, nondistended, no masses or organomegaly No rebound tenderness noted No bladder distension noted No CVA tenderness BS Normal RECTAL EXAM: external hemorrhoids noted Genital exam: Normal external genitalia. No erythema surrounding meatus. No testicular mass, swelling, TTP or hernias. Musculoskeletal exam no joint tenderness, deformity or swelling Neurological exam alert, oriented, normal speech, no focal findings or movement disorder noted, neck supple without rigidity Skin exam normal coloration and turgor, no rashes, no suspicious skin lesions noted . MM pink and moist. Hospital Encounter on 07/26/17 CULTURE URINE+GRAM STAIN Result Value Ref Range Gram Stain No organisms seen URINALYSIS - POCT (IP) URGENT CARE Result Value Ref Range Glucose UA neg Negative Bili UA neg Negative Ketone UA neg Negative Specific [place] UA 1.010 1.000 - 1.030 Blood UA 3+ Negative pH UA 5.0 5.0 - 8.0 pH units Protein UA neg Negative Urobilinogen UA 0.2 0.2 - 1.0 EU/dL Nitrite UA neg Negative Leukocyte UA trace Negative QC Verified Yes Yes Xray: KUB Prelim: No obstruction noted, as interpreted by this provider. STUDY TEXT Abdomen KUB one view ?? INDICATION: Painful urination ?? KUB of the abdomen is provided. Small calcification is noted below the left 12th rib suspicious for a lower pole left renal calculus measuring 2 mm. Rounded calcifications are seen in the pelvis which could be phleboliths. Indeterminate calcification is seen in the right as well overlying the right 12th rib 3 mm likely a renal calculus as well. ?? IMPRESSION Bilateral renal calculi. Indeterminate calcification of the pelvis could be phleboliths. ?? Reading Radiologist: Tg Patel MD on 07/26/2017 at 11:42 AM ?? Signed by: Tg Patel MD on 07/26/2017 11:42 AM Xray images shown to patient and impression by Dr. Patel explained. Plan will be to treat for UTI symptoms with Cipro, Annusol for hemorrhoids and Miralax for constipation. Patient agreeable to start here and f/u with PCP. ASSESSMENT: ICD-10-CM 1. Dysuria R30.0 URINALYSIS - POCT (IP) URGENT CARE CULTURE URINE+GRAM STAIN URINALYSIS - POCT (IP) URGENT CARE CULTURE URINE+GRAM STAIN 2. Constipation, unspecified constipation type K59.00 XR ABDOMEN KUB 3. Hemorrhoids, unspecified hemorrhoid type K64.9 PLAN: Orders Placed This Encounter ??? CULTURE URINE+GRAM STAIN Standing Status: Standing Number of Occurrences: 1 ??? XR ABDOMEN KUB Standing Status: Future Number of Occurrences: 1 Standing Expiration Date: 07/26/2018 ??? URINALYSIS - POCT (IP) URGENT CARE Standing Status: Standing Number of Occurrences: 1 ??? ciprofloxacin (CIPRO) 500 MG tablet Sig: Take 1 tablet by mouth 2 times daily for 7 days Dispense: 14 tablet Refill: 0 [facility] [id number]. Collaborating physician Dr. Jesenia Parker DSmitaOSmita ??? hydrocortisone (ANUSOL-HC) 25 MG suppository Sig: Insert 1 suppository into the rectum 2 times daily as needed for Hemorrhoids Dispense: 15 suppository Refill: 0 [facility] [id number]. Collaborating physician Dr. Jesenia Parker D.O. ??? phenazopyridine (PYRIDIUM) 200 MG tablet Sig: Take 1 tablet by mouth 3 times daily as needed Dispense: 6 tablet Refill: 0 Symptomatic care recommended: Push fluids and stay hydrated. Changing some daily habits may help a person prevent recurrent UTIs. Eating, Diet, and Nutrition Drinking lots of fluid can help flush bacteria from the system. Water is best. Most people should try for six to eight, 8-ounce glasses a day. A person who has kidney failure should not drink this much fluid. A health care provider should be consulted to learn how much fluid is healthy. Urination Habits A person should urinate often and when the urge arises. Bacteria can grow when urine stays in the bladder too long. Women and men should urinate shortly after sex to flush away bacteria that might have entered the urethra during sex. Drinking a glass of water will also help flush bacteria away. For constipation: Give 1/2 capful of miralax with 1 cup of apple juice every 12 hours x 3 doses. Followed by 1/2 capful of miralax with 1 cup of apple juice daily until stools are soft and regular. Increase water intake. Follow up with Elias Mayorga MD in 3days if symptoms persist, sooner if symptoms worsen. GO TO EMERGENCY ROOM FOR ANY SEVERE PAINS, INABILITY TO PASS SOFIA, STOOL OR URINE OR FOR ANY WORSENING SYMPTOMS. AVS reviewed with patient. The Patient indicates understanding of these issues and agrees with the plan. Patient discharged to Home. documented in this encounter Plan of Treatment Upcoming Encounters Date Type Department Care Team (Late st Contact Info) Description 03/22/2024 9:00 AM ANATOMICAL EMBALMER Office Visit [facility] - Ophthalmology [facility] [place] [phone] Ernesto Hawkins MD [facility] [place] [phone] documented as of this encounter Procedures Procedure Name Priority Date/Time Associated Diagnosis Comments CULTURE URINE+GRAM STAIN Routine 07/26/2017 10:53 AM CDT Dysuria URINALYSIS - POCT (IP) URGENT CARE Routine 07/26/2017 10:44 AM CDT Dysuria documented in this encounter Results * XR [...] MD on 07/26/2017 at 11:42 AM Lindsay GOMEZ DIAGNOSTIC IMAG ING ORDERABLES * CULTURE URINE+GRAM STAIN (07/26/2017 10:53 AM CDT) Culture Urine No growth (<1,000 CFU/mL) LAUREANO 07/27/2017 2:05 PM CDT [facility] MICROBIOLOG[facility] Gram Stain No organisms seen 07/27/2017 2:05 PM CDT [facility] MICRO[facility]OLOGY Urine URINE SPECIMEN OBTAINED BY CLEAN CATCH PROCEDURE / Unknown Collection / Unknown 07/26/2017 10:53 AM CDT 07/26/2017 10:53 AM CDT Lindsay R Ojeda GUN FERTILIZER-ALL SOURCE INTELLIGENCE ANALYST LAB - MICROBIOL OGY ORDERABLES Performing Organization Address City/[facility]/ZIP Co de Phone Number [facility] MICROBIOLOGY [address] [place] [address], [facility] [phone] * (ABNORMAL) URINALYSIS - POCT (IP) URGENT CARE (07/26/2017 10:44 AM CDT) Glucose UA neg Negative [facility] POCT TESTING Bilirubin UA neg Negative [facility] PO CT TESTING Ketone UA neg Negative [facility] POCT TESTING Specific [place] UA POCT 1.010 1.000 - 1.030 [facility] [...] 07/26/2017 1 0:44 AM CDT Lindsay Ojeda APRN-ALL SOURCE INTELLIGENCE ANALYST LAB - POINT OF CARE ORDERABLES Performing Organization Address City/[facility]/ZIP Co de Phone Number [facility] POCT TESTING [address] [place] [address], [facility] [phone] documented in this encounter Visit Diagnoses Diagnosis Dysuria- Primary Constipation, unspecified constipation type Hemorrhoids, unspecified hemorrhoid type Constipation, unspecified constipation type Dysuria Hemorrhoids, unspecified hemorrhoid type documented in this encounter Care Teams Dust Control Engineer Relationship Specialty Start Date End Date Elias Mayorga MD [address] [place] [address] PCP - General Internal Medicine 09/07/14 Stephanie Prasad RN [address] [place] [address] Retanned Leather Roller 10/06/13 Lan Bragg DO [address] [place] [address] Orthopedic Surgery 06/02/14 documented as of this encounter
--- OUTSIDE RECORDS SUMMARY | 2024-03-07 21:56 | XMS_ITS | Encounter Summary ---
Author Organization [facility] Address [address] [place] [address] Care Team Providers Care City Clerk Name Role Phone Stephanie Prasad RN Unavailable [phone] Lan Bragg DO Unavailable Elias Mayorga MD Primary Care Provider [phone] Elias Mayorga MD Unavailable [phone] Encounter Details Date Type Department Care Team (Latest Contact Info) Description 01/17/2021 11:55 AM DATA EXAMINATION CLERK - 01/17/2021 11:59 PM DATA EXAMINATION CLERK Hospital Encounter [facility] [address] [place] [address] Teri Figueroa, ENVIRONMENTAL JOURNALIST-TECHNICAL SPECIALIST CYTOGENETICS [address] [facility] [place] [address] Discharge Disposition: Home or Self Care Social History Tobacco Use Types Packs/Day Years Used Date Smoking Tobacco: Never Smokeless Tobacco: Never Tobacco Cessation:Counseling Given: Yes Alcohol Use Standard Drinks/Week Comments Yes 0.8 [...] Sign Reading Time Taken Comments Blood Pressure 121/87 01/17/2021 12:05 PM DATA EXAMINATION CLERK Pulse 69 01/17/2021 12:05 PM DATA EXAMINATION CLERK Temperature 36.8 ??C (98.3 ??F) 01/17/2021 12:[address] Respiratory Rate 18 01/17/2021 12:05 PM DATA EXAMINATION CLERK Oxygen Saturation 99% 01/17/2021 12:05 PM DATA EXAMINATION CLERK Inhaled Oxygen Concentration - - Weight 81.6 kg (180 lb) 01/17/2021 12:05 PM DATA EXAMINATION CLERK Height 172.7 cm (5' 8 ) 01/17/2021 12:05 PM DATA EXAMINATION CLERK Body Mass Index 27.37 01/17/2021 12:05 PM DATA EXAMINATION CLERK documented in this encounter Functional Status Functional [...] this encounter Discharge Instructions * Patient Instructions* Teri Figueroa, RONEL-TECHNICAL SPECIALIST CYTOGENETICS - 01/17/2021 12:39 PM DATA EXAMINATION CLERK Images from the original note were not included. Patient Education Dental Abscess Take the full course of antibiotics for your dental pain. Take the antibiotic with food or probiotic. Continue taking Ibuprofen or tylenol for pain as needed. Rinse your mouth thoroughly after eating. Warm salt water gargles can help with the pain and cleansthe mouth. You can also buy an antiseptic mouth wash at the pharmacy that will help decrease the number of bacteria in your mouth. Be sure to brush your teeth at least twice daily and floss daily. Make an appointment with your dentist CARLOS for further evaluation and treatment. PLASTIC DOLLS MOLD FILLER: A dental abscess is a collection of pus in or around a tooth. A dental abscess is caused by bacteria. The bacteria can enter the tooth when the enamel (outer part of the tooth) is damaged by tooth decay. Bacteria can also enter the tooth through a chip in the tooth or a cut in the gum. Food particles that are stuck between the teeth for a long time may also lead to an abscess. Common signs and symptoms: ?? Toothache, a loose tooth, or a tooth that is very sensitive to pressure or temperature ?? Bad breath, unpleasant taste, and drooling ?? Fever ?? Pain, redness, and swelling of the gums, or swelling of your face and neck ?? Pain when you open or close your mouth ?? Trouble opening your mouth Seek care immediately if: ?? You have severe pain in your tooth or jaw. ?? You have trouble breathing because of pain or swelling. Call your doctor if: ?? Your symptoms get worse, even after treatment. ?? Your mouth is bleeding. ?? You cannot eat or drink because of pain or swelling. ?? Your abscess returns. ?? You have an injury that causes a crack in your tooth. ?? You have questions or concerns about your condition or care. Treatment: You may need any of the following: ?? Medicines may be given to treat a bacterial infection and decrease pain. ?? Incision and drainage is a cut in the abscess to allow the pus to drain. A sample of fluid may be collected from your abscess. The fluid is sent to a lab and tested for bacteria. Ask your healthcare provider for more information. ?? A root canal is a procedure to remove the bacteria and prevent more infection. It is usually done after an incision and drainage. A filling or crown will be placed over the tooth after you have healed from your root canal. ?? Tooth removal may be needed if the infection affects deeper tissues. This is usually done after an incision and drainage. Self-care: ?? Rinse your mouth every 2 hours with salt water. This will help keep the area clean. ?? Gently brush your teeth twice a day with a soft tooth brush. This will help keep the area clean. ?? Eat soft foods as directed. Soft foods may cause less pain. Examples include applesauce, yogurt,and cooked pasta. Ask your healthcare provider how long to follow this instruction. ?? Apply a warm compress to your tooth or gum. Use a cotton ball or gauze soaked in warm water. Remove the compress in 10 minutes or when it becomes cool. Repeat 3 times a day. Prevent another abscess: ?? [place] your teeth at least 2 times a day with fluoride toothpaste. ?? Use dental floss at least once a day to clean between your teeth. ?? Rinse your mouth with water or mouthwash after meals and snacks. Chew sugarless gum. ?? Avoid sugary and starchy food that can stick between your teeth. Limit drinks high in sugar, such as soda or fruit juice. ?? See your dentist every 6 months for dental cleanings and oral exams. Follow up with your doctor or dentist as directed: Your healthcare provider will need to check yourteeth and gums. Write down your questions so you remember to ask them during your visits. ?? Copyright [employer] 2020 Information is for End User's use only and may not be sold, redistributed or otherwise used for commercial purposes. All illustrations and images included in CareNotes?? are the copyrighted property of [employer]. or [employer] The above information is an dental aide only. It is not intended as medical advice for individual conditions or treatments. Talk to your doctor, nurse or pharmacist before following any medical regimen to see if it is safe and effective for you. EXAMINATION CLERK documented in this encounter Medications at Time [...] Nose or Throat 31 capsule 01/17/2021 01/30/2024 escitalopram (LEXAPRO) 5 MG tablet Take 1 (one) tablet by mouth once daily 05/09/2020 01/30/2024 flecainide (TAMBOCOR) 100 MG tablet TAKE 1 TABLET BY MOUTH TWICE DAILY 180 tablet 05/29/2018 09/20/2022 meloxicam (MOBIC) 15 MG tablet Take 1 (one) tablet by mouth daily with food 06/07/2020 01/30/2024 documented as of this encounter Progress Notes * Stephanie Staples RN - 01/17/2021 12:02 PM CST Pt arrived at the Urgent Care with complaints of the top/left tooth infection. (3rd tooth from the back) Pt chipped a tooth yesterday (the last back molar), however not related. Pain is a 8-9 out of 10, with biting down on it. At rest, 4-5 out of 10. Woke up at 0300 and bit down on the tooth and felt a severe pain. EXAMINATION CLERK * Teri Figueroa APRN-ROYCE - 01/17/2021 12:01 PM CST Images from the original note were not included. [facility] History of Present Illness Patient Identification Kenji Camara is a 60 year old male. PCP: Elias Mayorga MD Patient information was obtained from patient. History/Exam limitations: none. Patient presented to the Urgent Care by private vehicle. Chief Complaint Dental pain Reason for Visit: Tooth abscess Kenji, a 60 year old, White/, male has presented to the Urgent Care today with top/left tooth infection. (3rd tooth from the back) Woke up at 0300 and bit down on the tooth and felta severe pain. Pt chipped a tooth yesterday (the last back molar). This is not where he is experiencing pain. States had a bad taste from this and pain is worsening. No fever. No OTC's. The patient has a dentist. Patient denies fever, chills, n/v/d; denies severe headache or neck stiffness. Patient denies recent travel outside of [facility] in past 21 days. Allergies Allergen Reactions ??? Naproxen GI Discomfort Social History Tobacco Use ??? Smoking status: Never Smoker ??? Smokeless tobacco: Never Used Substance Use Topics ??? Alcohol use: Yes Alcohol/week: 0.8 standard drinks Types: 1 Cans of beer per week Comment: 2 beers a day ??? Drug use: No Past Medical History: Diagnosis Date ??? Afib [...] ??? 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 Cordon. [employer]. Successful and uncomplicated ILR implantation. ??? Shoulder Arthroscopy Family History Problem Relation Name Age of Onset ??? Hypertension Mother ??? Cancer - Prostate Father ??? CAD (Coronary Artery Disease) Father Current Outpatient Medications Medication Sig Dispense Refill ??? amoxicillin (AMOXIL) 500 MG capsule Amoxicillin- 1000mg orally as a loading dose, followed by 500mg orally TID Reasons: Infection of Ears, Nose or Throat 31 capsule 0 ??? B Complex Vitamins (VITAMIN B COMPLEX PO) ??? escitalopram (LEXAPRO) 5 MG tablet Take 5 mg by mouth once daily ??? flecainide (TAMBOCOR) 100 MG tablet TAKE 1 TABLET BY MOUTH TWICE DAILY 180 tablet 0 ??? meloxicam (MOBIC) 15 MG tablet Take 15 mg by mouth daily with food (Patient not taking: Reported on 01/17/2021) ??? rosuvastatin (CRESTOR) 10 MG tablet Take 10 mg by mouth at bedtime No current facility-administered medications for this encounter. Allergies Allergen Reactions ??? Naproxen GI Discomfort Social History Tobacco Use ??? Smoking status: Never Smoker ??? Smokeless tobacco: Never Used Substance Use Topics ??? Alcohol use: Yes Alcohol/week: 0.8 standard drinks Types: 1 Cans of beer per week Comment: 2 beers a day Review of Systems Review of Systems Constitutional: Negative. Negative for fever. HENT: Negative. Negative for congestion. Dental pain Respiratory: Negative. Negative for cough. Cardiovascular: Negative. Skin: Negative. Physical Exam BP 121/87 Pulse 69 Temp 98.3 ??F (36.8 ??C) (Temporal) Resp 18 Ht 1.727 m (5' 8 ) Wt 81.6kg (180 lb) SpO2 99% BMI 27.37 kg/m?? Physical Exam Vitals and nursing note reviewed. Constitutional: General: He is not in acute distress. Appearance: He is not ill-appearing, toxic-appearing or diaphoretic. HENT: Mouth/Throat: Lips: [place]. Mouth: Mucous membranes are moist. Dentition: Abnormal dentition. Dental tenderness, gingival swelling (mild) and dental caries present. No dental abscesses or gum lesions. Pharynx: Oropharynx is clear. Uvula midline. Cardiovascular: Rate and Rhythm: Normal rate and regular rhythm. Heart sounds: Normal heart sounds, S1 normal and S2 normal. Pulmonary: Effort: Pulmonary effort is normal. Breath sounds: Normal breath sounds. Skin: General: Skin is warm and dry. Neurological: Mental Status: He is alert. Psychiatric: Behavior: Behavior is cooperative. Procedures Procedures Lab/SPO2 Interpretation No results found for this visit on 01/17/21. Progress Notes Medical Decision Making I have reviewed the: Nursing Notes, Vitals. I have interpreted the following results: Oxygen Saturation. Assessment ICD-10-CM 1. Dental infection K04.7 Plan Orders Placed This Encounter ??? amoxicillin (AMOXIL) 500 MG capsule Sig: Amoxicillin- 1000mg orally as a loading dose, followed by 500mg orally TID Reasons: Infection of Ears, Nose or Throat Dispense: 31 capsule Refill: [address] Nguyen, Discussed with patient: Take the full course of antibiotics for your dental pain. Take the antibiotic with food or probiotic. Continue taking Ibuprofen or tylenol for pain as needed. Rinse your mouth thoroughly after eating. Warm salt water gargles can help with the pain and cleansthe mouth. You can also buy an antiseptic mouth wash at the pharmacy that will help decrease the number of bacteria in your mouth. Be sure to brush your teeth at least twice daily and floss daily. Make an appointment with your dentist CARLOS for further evaluation and treatment. - Monitor symptoms closely for improvement or any changes/problems. - Take medications as directed. Proper medication use, risks, side effects/adverse effects and potential interactions reviewed and patient states understands. - Patient to stay well hydrated, otc tylenol or ibuprofen for pain or fever as discussed. Follow up with Elias Mayorga MD in [place] if symptoms persist, sooner if symptoms worsen. AVS reviewed with patient. The Patient indicates understanding of these issues and agrees with the plan. Patient discharged to Home. - Patient encouraged to call back with concerns or questions. - Patient discharged to home in stable condition; ambulated out without difficulty. Be advised that voice recognition software was used in the production of this record. Errors in interpretation may have been inadvertently missed during review. EXAMINATION CLERK documented in this encounter Miscellaneous Notes * Addendum Note - Isidra Valerio CCS - 01/17/2021 11:59 PM CSTEncounter addended by: Isidra Valerio CCS on: 01/20/2021 8:33 PM Actions taken: Charge Capture section accepted EXAMINATION CLERK documented in this encounter Plan of Treatment Upcoming Encounters Date Type Department Care Team (Late st Contact Info) Description 03/22/2024 9:00 AM DATA EXAMINATION CLERK Office Visit [facility] - Op[facility]mology [address] [place] [phone] Ernesto Hawkins MD [address] [place] [phone] documented as of this encounter Visit Diagnoses Diagnosis Dental infection- Primary Acute apical periodontitis of pulpal origin documented in this encounter Care Teams City Clerk Relationship Specialty Start Date End Date Elias Mayorga MD [address] [place] [address] PCP - General Internal Medicine 09/07/14 Elias Mayorga MD [address] [facility] [address] [place] [address] PCP - Attributed-[employer] EHP STL 08/25/19 08/12/22 Stephanie Prasad, RN [address] [place] [address] Boxing Machine Operator 10/06/13 Lan Bragg DO [address] [place] [address] Orthopedic Surgery 06/02/14 documented as of this encounter
--- OUTSIDE RECORDS SUMMARY | 2024-03-07 21:56 | XMS_ITS | Encounter Summary ---
Author Organization [facility] Address [address] [place] [address] Care Team Providers Care Guard Lieutenant Name Role Phone Stephanie Prasad RN Unavailable [phone] Lan Bragg DO Unavailable Elias Mayorga MD Primary Care Provider [phone] Reason for Visit * Reason Onset Date Comments Reminder Call 09/11/2015 Carelink Encounter Details Date Type Department Care Team (Late st Contact Info) Description 09/11/2015 Telephone [facility] Heart & Vascular Care [address] [place] [address] Shannon Cordon MD [address] [address] Reminder Call ([facility]) Social History Tobacco Use [...] encounter Miscellaneous Notes * Telephone Encounter - Darell, Molly - 09/11/2015 12:09 PM CDT LMOM reminding pt to transmit remotely at home today with Medtronic box. documented in this encounter Plan of Treatment Upcoming Encounters Date Type Department Care Team (Late st Contact Info) Description 03/22/2024 9:00 AM BLACKJACK DEALER Office Visit [facility] - [facility] [address] [place] [phone] Ernesto Hawkins MD [address] [place] [phone] documented as of this encounter Visit Diagnoses Not on filedocumented in this encounter Care Teams Guard Lieutenant Relationship Specialty Start Date End Date Elias Mayorga MD [address] [place] [address] PCP - General Internal Medicine 09/07/14 Stephanie Prasad RN [address] [place] [address] Vice President Education 10/06/13 Lan Bragg DO [address] [place] [address] Orthopedic Surgery 06/02/14 documented as of this encounter
--- OUTSIDE RECORDS SUMMARY | 2024-03-07 21:56 | XMS_ITS | Encounter Summary ---
Author Organization [facility] Address [address] [facility] [address] Care Team Providers Care Supply And Distribution Manager Name Role Phone Stephanie Prasad RN Unavailable [phone] Lan Bragg DO Unavailable Elias Mayorga MD Primary Care Provider [phone] Elias Mayorga MD Unavailable [phone] Reason for Visit * Reason Onset Date Comments Medical Clearance 09/26/2021 Encounter Details Date Type Department Care Team (Late st Contact Info) Description 09/26/2021 Telephone [facility] Heart & Vascular Care [address] [facility], [address] [address] Justino Jama MD [address] [facility] [address] [place] [address] Medical Clearance Social History Tobacco Use Types Packs/Day Years [...] encounter Miscellaneous Notes * Telephone Encounter - Erica Alonso - 09/26/2021 3:27 PM CDT [facility] with Rj's approval for Eliquis hold. Invited pt to call if any questions. * Telephone Encounter - Parish Wen APRN-CNP - 09/26/2021 12:31 PM CDT Hold and resumption of anticoagulation per dentist. But ok to hold if this is their recommendation. PATRICIA Morataya 09/26/2021 12:33 PM * Telephone Encounter - Erica Alonso - 09/26/2021 11:18 AM CDT Pt calls stating he is to have a tooth extracted and needs clearance to hold Eliquis x3 days prior. Please advise. documented in this encounter Plan of Treatment Upcoming Encounters Date Type Department Care Team (Late st Contact Info) Description 03/22/2024 9:00 AM ROPEMAN Office Visit [facility] [address] [place] [phone] Ernesto Hawkins MD [address] [place] [phone] documented as of this encounter Visit Diagnoses Not on filedocumented in this encounter Care Teams Supply And Distribution Manager Relationship Specialty Start Date End Date Elias Mayorga MD [address] [place] [address] PCP - General Internal Medicine 09/07/14 Elias Mayorga MD [address] [place] [address] PCP - Attributed-[employer] EHP STL 08/25/19 08/12/22 Stephanie Prasad, RN [address] [place] [address] Prosthetics Lab Technician 10/06/13 Lan Bragg DO [address] [facility] [address] [place] [address] Orthopedic Surgery 06/02/14 documented as of this encounter
--- OUTSIDE RECORDS SUMMARY | 2024-03-07 21:56 | XMS_ITS | Encounter Summary ---
Author Organization [facility] Address [address] [facility] [place] [address] Care Team Providers Care Arresting Gear Operator Name Role Phone Stephanie Prasad RN Unavailable [phone] Lan Bragg DO Unavailable Elias Mayorga MD Primary Care Provider [phone] Reason for Visit * Reason Comments Follow-up 6MOFU regarding PAF/ Typical AFlutter, Flecainide therapy. Currently not on Eliquis. Would like to discuss ASA alternative. Encounter Details Date Type Department Care Team (Late st Contact Info) Description 06/05/2015 3:15 PM CDT Office Visit [facility] Heart & Vascular Care [address] [place] [phone] Shannon Cordon MD [address] [address] Paroxysmal atrial fibrillation 11/07/14 seen on loop recorder (Primary Dx); Typical atrial flutter (HCC); S/P ablation of atrial flutter; Chronic anticoagulation; Status post placement of implantable loop recorder [...] Sign Reading Time Taken Comments Blood Pressure 130/78 06/05/2015 3:27 PM CDT Pulse 74 06/05/2015 3:27 PM CDT Temperature - - Respiratory Rate - - Oxygen Saturation - - Inhaled Oxygen Concentration - - Weight 80.7 kg (178 lb) 06/05/2015 3:27 PM CDT Height 172.7 cm (5' 8 ) 06/05/2015 3:27 PM CDT Body Mass Index 27.06 06/05/2015 3:27 PM CDT documented in this encounter Functional [...] No 01/11/2014 documented as of this encounter Progress Notes * Shannon Cordon MD - 06/16/2015 6:15 AM CDT ELECTROPHYSIOLOGY OFFICE VISIT 06/05/2015 Kenji Berta Camara 1960 54 y.o. male [address] Elias Mayorga [place]: [place] [address] [place] [address] REASON FOR VISIT/CHIEF COMPLAINT Follow up of the following medical problems Newly diagnosed paroxysmal AF - 11/07/14 Hx of atrial flutter s/p ablation S/p repeat EP study with no inducible arrhythmia besides AF Flecainide therapy Current anticoagulation therapy ?? DVT HPI The patient returns today for followup of the above medical diagnoses. Since last visit he has feltwell. He has had no significant palpitations. Patient denies palpitations, lightheadedness, chest pain, shortness of breath, orthopnea, PND or leg edema. He has discontinued his Xarelto on account of significant rectal bleeding. He is being scheduled for a colonoscopy CURRENT MEDS Outpatient Prescriptions Marked as Taking for the 06/05/15 encounter (Office Visit) with Shannon Cordon MD Medication Sig ??? flecainide (TAMBOCOR) 100 MG tablet Take 1 Tab by mouth 2 times daily ??? rosuvastatin (CRESTOR) 10 MG tablet Take 10 mg by mouth at bedtime SYSTEMIC REVIEW No fever No cough Vitals: 06/05/15 1527 BP: 130/78 Pulse: 74 Weight: 80.74 kg (178 lb) GENERAL- Comfortable , No distress CVS [...] affect, nl mood MUSCULOSKELETAL - nl gait ASSESSMENT Newly diagnosed paroxysmal AF - 11/07/14 Hx of atrial flutter s/p ablation S/p repeat EP study with no inducible arrhythmia besides AF Flecainide therapy Current anticoagulation therapy ??- held for rectal bleeding DVT S/p loop recorder implantation PLAN Continue flecainide 100 mg b.i.d. He will need GI clearance for future anticoagulation giving his rectal bleeding No AF ablation at this time (the patient is stable on flecainide and he does not want invasive management) Follow up 6 months -1year It was a pleasure attending to Kenji Camara today. Thank you for the opportunity to participate in his care. Shannon Cordon M.D. Cardiac Insulation Estimator [facility] Heart [place] [phone] (office) [phone] (pager) documented in this encounter Plan of Treatment Upcoming Encounters Date Type Department Care Team (Late st Contact Info) Description 03/22/2024 9:00 AM POWER SYSTEM ELECTRICAL ENGINEER Office Visit [facility] - Ophthalmology [address] [place] [phone] Ernesto Hawkins MD [address] [place] [phone] documented as of this encounter Visit Diagnoses Diagnosis Paroxysmal atrial fibrillation 11/07/14 seen on loop recorder- Primary Atrial fibrillation Typical atrial flutter (HCC) Atrial flutter S/P ablation of atrial flutter Other postprocedural status Chronic anticoagulation Encounter for long-term (current) use of anticoagulants Status post placement of implantable loop recorder documented in this encounter Care Teams Arresting Gear Operator Relationship Specialty Start Date End Date Elias Mayorga MD [address] [facility] [address] [place] [phone] PCP - General Internal Medicine 09/07/14 Stephanie Prasad RN [address] [place] [address] Manager Workers Compensation 10/06/13 Lan Bragg DO [address] [facility] [address] [place] [address] Orthopedic Surgery 06/02/14 documented as of this encounter
--- OUTSIDE RECORDS SUMMARY | 2024-03-07 21:56 | XMS_ITS | Encounter Summary ---
Author Organization [facility] Address [address] [facility] [place] [address] Care Team Providers Care Warehouse Distribution Specialist Name Role Phone Stephanie Prasad RN Unavailable [phone] Lan Bragg DO Unavailable Elias Mayorga MD Primary Care Provider [phone] Elias Mayorga MD Unavailable [phone] Reason for Visit * Reason Onset Date Comments COVID-19 IMMUNIZATION/INJECTION 02/17/2020 Encounter Details Date Type Department Care Team (Latest Contact Info) Description 02/17/2020 11:40 AM MOBILE CRANE OPERATOR Clinical Support [facility] - [facility] Health COVID [address] [place] [phone] Need for vaccination Social History Tobacco Use Types Packs/Day Years [...] have Coronavirus / COVID-19? No / Unsure 02/17/2020 11:40 AM MOBILE CRANE OPERATOR documented as of this encounter Functional Status [...] this encounter Patient Instructions * Patient Instructions* Marisol Rooney RN - 02/17/2020 11:44 AM MOBILE CRANE OPERATOR Images from the original note were not included. Vaccine recipients are encouraged to enroll in the [facility] V-SAFE program for post vaccination monitoring. Sign up with your smartphone's browser at Shopzilla.cdc.gov or Aim your smartphone's camera at this code. LE CRANE OPERATOR documented in this encounter Progress Notes * Marisol Rooney RN - 02/17/2020 11:44 AM CST COVID screening checklist was reviewed with the patient. The Information sheet was given prior to administration. Injection site aseptically cleansed and injection given per Immunization(s) protocol.See Imm/Injections activity for details. LE CRANE OPERATOR documented in this encounter Plan of Treatment Upcoming Encounters Date Type Department Care Team (Late st Contact Info) Description 03/22/2024 9:00 AM MOBILE CRANE OPERATOR Office Visit [facility] - Ophthalmology [address] [place] [phone] Ernesto Hawkins MD [address] [place] [address] documented as of this encounter Visit Diagnoses Diagnosis Need for vaccination- Primary Need for prophylactic vaccination and inoculation against unspecified single disease documented in this encounter Care Teams Warehouse Distribution Specialist Relationship Specialty Start Date End Date Elias Mayorga MD [address] [facility] [address] [place] [address] PCP - General Internal Medicine 09/07/14 Elias Mayorga MD [address] [place] [address] PCP - Attributed-[employer] EHP STL 08/25/19 08/12/22 Stephanie Prasad RN [address] [place] [address] Reel Hooker 10/06/13 Lan Bragg DO [address] [place] [address] Orthopedic Surgery 06/02/14 documented as of this encounter
--- OUTSIDE RECORDS SUMMARY | 2024-03-07 21:56 | XMS_ITS | Encounter Summary ---
Author Organization [facility] Address [address] [facility] [place] [address] Care Team Providers Care Water Reclamation Systems Operator Name Role Phone Stephanie Prasad RN Unavailable [phone] Lan Bragg DO Unavailable Elias Mayorga MD Primary Care Provider [phone] Reason for Visit * Reason Onset Date Comments Implantable Device Follow-Up 06/19/2016 Encounter Details Date Type Department Care Team (Late st Contact Info) Description 06/19/2016 Telephone [facility] Heart & Vascular Care [address] [place], [address] [address] Shannon Cordon MD [address] [address] Implantable Device Follow-Up Social History Tobacco Use Types Packs/Day Years [...] encounter Miscellaneous Notes * Telephone Encounter - Roxnana Kim, RN - 06/19/2016 2:16 PM CDT Called pt to request remote transmission. LMOM. documented in this encounter Plan of Treatment Upcoming Encounters Date Type Department Care Team (Late st Contact Info) Description 03/22/2024 9:00 AM MOLDING MACHINE OPERATOR HELPER Office Visit [facility] - Ophthalmology [address] [place] [phone] Ernesto Hawkins MD [address] [place] [phone] documented as of this encounter Visit Diagnoses Not on filedocumented in this encounter Care Teams Water Reclamation Systems Operator Relationship Specialty Start Date End Date Elias Mayorga MD [address] [employer] [place] [address] [place] [address] PCP - General Internal Medicine 09/07/14 Stephanie Prasad RN [address] [place] [address] Corner Brace Block Machine Operator 10/06/13 Lan Bragg DO [address] [place] [address] Orthopedic Surgery 06/02/14 documented as of this encounter
--- OUTSIDE RECORDS SUMMARY | 2024-03-07 21:56 | XMS_ITS | Encounter Summary ---
Author Organization [facility] Address [address] [facility] [place] [address] Care Team Providers Care Plate Shop Helper Name Role Phone Stephanie Prasad RN Unavailable [phone] Lan Bragg DO Unavailable Elias Mayorga MD Primary Care Provider [phone] Elias Mayorga MD Unavailable [phone] Encounter Details Date Type Department Care Team (Latest Contact Info) Description 02/17/2020 Travel Social History Tobacco Use Types Packs/Day [...] COVID-19? No / Unsure 02/17/2020 11:40 AM PUBLIC RELATIONS ACCOUNT SUPERVISOR documented as of this encounter Functional Status [...] st Contact Info) Description 03/22/2024 9:00 AM PUBLIC RELATIONS ACCOUNT SUPERVISOR Office Visit [facility] - Ophthalmology [address] [facility], [place] [phone] Ernesto Hawkins MD [address] [place] [phone] documented as of this encounter Visit Diagnoses Not on filedocumented in this encounter Care Teams Plate Shop Helper Relationship Specialty Start Date End Date Elias Mayorga MD [address] [facility] [address] [place] [address] PCP - General Internal Medicine 09/07/14 Elias Mayorga MD [address] [place] [address] PCP - Attributed-[employer] EHP STL 08/25/19 08/12/22 Stephanie Prasad RN [address] [facility] [address] [place] [address] Repairer Finished Metal 10/06/13 Lan Bragg DO [address] [facility] [address] [place] [address] Orthopedic Surgery 06/02/14 documented as of this encounter
--- OUTSIDE RECORDS SUMMARY | 2024-03-07 21:56 | XMS_ITS | Encounter Summary ---
Author Organization [facility] Address [address] [facility] [address] Care Team Providers Care Integrity Consultant Name Role Phone Stephanie Prasad RN Unavailable [phone] Lan Bragg DO Unavailable Elias Mayorga MD Primary Care Provider Reason for Referral * Radiology Services (Routine) - Closed Specialty Diagnoses / Procedures Referred By Rosa espinosa Referred To Contact Diagnoses Prostate cancer (HCC) Procedures MRI [place]ELVIS [place] [address] [facility] [address] [place] [address] Referral ID Status Reason Start Date Expiration Date Visits Re quested Visits Authorized [id number] Closed 01/31/2017 07/30/2017 1 1 BREAKER Reason for Visit * Radiology Services (Routine) - Closed Specialty Diagnoses / Procedures Referred By Rosa espinosa Referred To Contact MRI Procedures [place] MRI, PELVIS, [place] [address] [facility] [address] [place] [address] [facility] [address] [place] [address] Referral ID Status Reason Start Date Expiration Date Visits Re quested Visits Authorized [id number] Closed 01/27/2017 04/27/2017 1 1 Encounter Details Date Type Department Care Team (Latest Contact Info) Description 01/31/2017 2:40 PM MOLD BREAKER - 01/31/2017 11:59 PM MOLD BREAKER Hospital Encounter [facility] Health [place] [address] [place] [address] [place] [address] [facility] [address] [place] [address] Discharge Disposition: Home or Self Care Social [...] at bedtime aspirin EC (ECOTRIN) 325 MG tabletIndications:Typical atrial flutter (HCC),Paroxysmal atrial fibrillation (HCC) Take 325 mg by mouth once daily 10/16/2020 flecainide (TAMBOCOR) 100 MG tablet TAKE 1 TABLET BY MOUTH TWICE DAILY 180 Tab 2 03/13/2016 06/13/2017 multivitamin daily (THERAGRAN) tablet Take 1 Tab by mouth daily with food 02/05/2018 documented as of this encounter Plan of Treatment Upcoming Encounters Date Type Department Care Team (Late st Contact Info) Description 03/22/2024 9:00 AM MOLD BREAKER Office Visit [facility] - Ophthalmology [address] [place] [phone] Ernesto Hawkins MD [facility] [place] [address] documented as of this encounter Procedures Procedure Name Priority Date/Time Associated Diagnosis Comments MRI PELVIS WWO CONTRAST Routine 01/31/2017 3:41 PM MOLD BREAKER Prostate cancer (HCC) CREATININE BLOOD - POINT OF CARE (IP) Routine 01/31/2017 2:47 PM MOLD BREAKER Prostate cancer (HCC) documented in this encounter Results * MRI PELVIS WITH AND WITHOUT CONTRAST (01/31/2017 3:41 PM MOLD BREAKER) Anatomical Region Laterality Modality Pelvis Magnetic Resonan ce 02/03/2017 8:41 AM MOLD BREAKER Narrative 02/03/2017 9:05 AM MOLD BREAKER MRI prostate, with and without contrast Indication [...] POINT OF CARE (IP) (01/31/2017 2:47 PM MOLD BREAKER) Creatinine POCT 0.94 0.7 - 1.2 mg/dL [facility] POCT TESTING QC Verified Yes Yes [facility] POC T TESTING Blood BLOOD SPECIMEN / Unknown 01/31/2017 2:47 PM MOLD BREAKER Eder Fernandez MD LAB - POINT OF CARE ORDERABLES [facility] POCT TESTING [address] [phone] documented in this encounter Visit Diagnoses Diagnosis Prostate cancer (HCC) Malignant neoplasm of prostate documented in this encounter Administered Medications Inactive Administered Medications - up to 3 most recent administrations Medication Order MAR Action Action Date Dose Rate Site gadoterate meglumine (DOTAREM) injection Intravenous, CONTRAST ONCE, Starting on Fri01/31/17 at 1500, Until 02/01/17 at 0123 $ Given 01/31/2017 3:00 PM MOLD BREAKER 18 mL Left Arm documented in this encounter Care Teams Integrity Consultant Relationship Specialty Start Date End Date Elias Mayorga MD [address] [place] [address] PCP - General Internal Medicine 09/07/14 Stephanie Prasad RN [address] [facility] [address] [place] [address] Environmental Studies Professor 10/06/13 Lan Bragg DO [address] [facility] [address] [place] [address] Orthopedic Surgery 06/02/14 documented as of this encounter
--- OUTSIDE RECORDS SUMMARY | 2024-03-07 21:56 | XMS_ITS | Encounter Summary ---
Author Organization [facility] Address [address] [facility] [place] [address] Care Team Providers Care Core Dropper Name Role Phone Stephanie Prasad RN Unavailable Lan Bragg DO Unavailable Elias Mayorga MD Primary Care Provider [phone] Reason for Visit * Reason Onset Date Comments MEDICATION REFILL 09/10/2017 Encounter Details Date Type Department Care Team (Late st Contact Info) Description 09/10/2017 Refill [facility] Heart & Vascular Care [address] [phone] Shannon Cordon MD [address] [address] MEDICATION REFILL Social History Tobacco Use Types Packs/Day Years [...] * Telephone Encounter - Mariana Ruiz - 09/10/2017 9:04 AM CDT Please sign pended medication: Last office visit with Jn Cordon MD 06/13/2017 Next office visit with Jn Cordon MD Visit date not found documented in this encounter Plan of Treatment Upcoming Encounters Date Type Department Care Team (Late st Contact Info) Description 03/22/2024 9:00 AM UPPERS EDGE BURNISHER Office Visit [facility] - Ophthalmology [address] [place] [phone] Ernesto Hawkins MD [address] [place] [phone] documented as of this encounter Visit Diagnoses Not on filedocumented in this encounter Care Teams Core Dropper Relationship Specialty Start Date End Date Elias Mayorga MD [address] [facility] [address] [place] [address] PCP - General Internal Medicine 09/07/14 Stephanie Prasad RN [address] [facility] [address] [place] [address] Police Manager 10/06/13 Lan Bragg DO [address] [facility] [address] [place] [address] Orthopedic Surgery 06/02/14 documented as of this encounter
--- OUTSIDE RECORDS SUMMARY | 2024-03-07 21:56 | XMS_ITS | Encounter Summary ---
Author Organization [facility] Address [address] [facility] [place] [address] Care Team Providers Care Body Component Engineer Name Role Phone Stephanie Prasad RN Unavailable [phone] Lan Bragg DO Unavailable Elias Mayorga MD Primary Care Provider [phone] Reason for Visit * Reason Comments Refill Request Encounter Details Date Type Department Care Team (Late st Contact Info) Description 08/28/2018 Refill [facility] Heart & Vascular Care [address] [phone] Shannon Cordon MD [address] [address] Refill Request Social History Tobacco Use Types [...] Contact Info) Description 03/22/2024 9:00 AM SENIOR SAFETY SUPPORT MANAGER Office Visit [facility] - Ophthalmology [address] [place] [phone] Ernesto Hawkins MD [address] [place] [phone] documented as of this encounter Visit Diagnoses Not on filedocumented in this encounter Care Teams Body Component Engineer Relationship Specialty Start Date End Date Elias Mayorga MD [address] [facility] [address] [place] [address] PCP - General Internal Medicine 09/07/14 Stephanie Prasad RN [address] [facility] [address] [place] [address] Automatic Paint Sprayer Operator 10/06/13 Lan Bragg DO [address] [facility] [address] [place] [address] Orthopedic Surgery 06/02/14 documented as of this encounter
--- OUTSIDE RECORDS SUMMARY | 2024-03-07 21:56 | XMS_ITS | Encounter Summary ---
Author Organization [facility] Address [address] [facility] [place] [address] Care Team Providers Care Roll Coverer Name Role Phone Stephanie Prasad RN Unavailable [phone] Lan Bragg DO Unavailable Elias Mayorga MD Primary Care Provider [phone] Elias Mayorga MD Unavailable [phone] Reason for Visit * Reason Comments Refill Request Encounter Details Date Type Department Care Team (Late st Contact Info) Description 01/25/2022 Refill [facility] Heart & Vascular Care [address] [facility], [address] [place] [phone] Shannon Cordon MD [address] [facility] [address] [place] [address] Refill Request Social History Tobacco Use Types [...] st Contact Info) Description 03/22/2024 9:00 AM DRY HOUSE WORKER Office Visit [facility] - Ophthalmology [address] [place] [phone] Ernesto Hawkins MD [facility] [place] [phone] documented as of this encounter Visit Diagnoses Not on filedocumented in this encounter Care Teams Roll Coverer Relationship Specialty Start Date End Date Elias Mayorga MD [address] [place] [address] PCP - General Internal Medicine 09/07/14 Elias Mayorga MD [address] [place] [address] PCP - Attributed-[employer] EHP STL 08/25/19 08/12/22 Stephanie Prasad RN [address] [place] [address] Scale Tester 10/06/13 Lan Bragg DO [address] [place] [address] Orthopedic Surgery 06/02/14 documented as of this encounter
--- OUTSIDE RECORDS SUMMARY | 2024-03-07 21:56 | XMS_ITS | Encounter Summary ---
Author Organization [facility] Address [address] [facility] [place] [address] Care Team Providers Care Currency Examiner Name Role Phone Stephanie Prasad RN Unavailable Lan Bragg DO Unavailable Elias Mayorga MD Primary Care Provider Reason for Referral * Radiology Services (Routine) - Closed Specialty Diagnoses / Procedures Referred By Contac t Referred To Contact CT Scan Diagnoses Hematuria syndrome Procedures CT ABDOMEN [place] [address] [facility] [address] [place] [address] [place], [place] [id number] Referral ID Status Reason Start Date Expiration Date Visits Re quested Visits Authorized [id number] Closed 03/10/2017 09/06/2017 1 1 OPERATOR Reason for Visit * Radiology Services (Routine) - Closed Specialty Diagnoses / Procedures Referred By Contac t Referred To Contact CT Scan Diagnoses Hematuria syndrome Procedures CT ABDOMEN [place]ELVIS [place] [address] [facility] [address] [place] [address] [place] [address] Referral ID Status Reason Start Date Expiration Date Visits Re quested Visits Authorized [id number] Closed 03/10/2017 09/06/2017 1 1 Encounter Details Date Type Department Care Team (Latest Contact Info) Description 03/10/2017 2:25 PM BELT OPERATOR - 03/10/2017 11:59 PM BELT OPERATOR Hospital Encounter [facility] Health Imaging Services - CT Scan [address] [facility] [address] [place] [address] [place] [address] [facility] [address] [place] [address] Discharge Disposition: Home or Self Care Social [...] st Contact Info) Description 03/22/2024 9:00 AM BELT OPERATOR Office Visit [facility] - Ophthalmology [address] [facility], [place] [phone] Ernesto Hawkins MD [facility] [place] [phone] documented as of this encounter Procedures Procedure Name Priority Date/Time Associated Diagnosis Comments CT ABDOMEN PELVIS WWO CONTRAST Routine 03/10/2017 3:37 PM BELT OPERATOR Hematuria syndrome documented in this encounter Results * CT ABDOMEN PELVIS WWO CONTRAST (03/10/2017 3:37 PM BELT OPERATOR) Anatomical Region Laterality Modality Abdomen, Pelvis Computed Tomogra phy 03/11/2017 12:5 7 PM BELT OPERATOR Impressions 03/11/2017 1:06 PM BELT OPERATOR Nonobstructing renal calculi are present bilaterally, the largest at the lower pole of the left kidney. Narrative 03/11/2017 1:[address] urogram with 3-D reconstructions Indication: Hematuria [...] left kidney. Eder Fernandez MD CT ORDERABLES documented in this encounter Visit Diagnoses Diagnosis Hematuria syndrome Hematuria, unspecified documented in this encounter Administered Medications Inactive Administered Medications - up to 3 most recent administrations Medication Order MAR Action Action Date Dose Rate Site iohexol (OMNIPAQUE 350) contrast Intravenous, CONTRAST ONCE, Starting on 03/10/17 at 1536, Until Tu03/11/17 at 0128 $ Given - Contrast 03/10/2017 3:36 PM BELT OPERATOR 80 mL Left Arm documented in this encounter Care Teams Currency Examiner Relationship Specialty Start Date End Date Elias Mayorga MD [address] [employer] [address] [place] [address] PCP - General Internal Medicine 09/07/14 Stephanie Prasad, RN [address] [place] [address] Security Associate 10/06/13 Lan Bragg DO [address] [employer] [place] [address] Orthopedic Surgery 06/02/14 documented as of this encounter
--- OUTSIDE RECORDS SUMMARY | 2024-03-07 21:56 | XMS_ITS | Encounter Summary ---
Author Organization [facility] Address [address] [place] [address] Care Team Providers Care Card Grinder Name Role Phone Stephanie Prasad RN Unavailable [phone] Lan Bragg DO Unavailable Elias Mayorga MD Primary Care Provider Elias Mayorga MD Unavailable [phone] Reason for Referral * Procedure (Routine) - Closed Specialty Diagnoses / Procedures Referred By Contac t Referred To Contact Cardiology Diagnoses PAF (paroxysmal atrial fibrillation) (HCC) Procedures EKG 12-LEAD Shannon Cordon MD [address] [place] [address] Referral ID Status Reason Start Date Expiration Date Visits Re quested Visits Authorized [id number] Closed 06/23/2020 06/23/2021 1 1 Encounter Details Date Type Department Care Team (Late st Contact Info) Description 06/23/2020 3:00 PM CDT Office Visit [facility] Heart & Vascular Care [address] [place] [id number] Shannon Cordon MD [address] [place] [address] PAF (paroxysmal atrial fibrillation) (HCC) (Primary Dx); Encounter for monitoring flecainide therapy; S/P ablation of atrial flutter Social History Tobacco Use [...] PM CDT documented as of this encounter Last Filed Vital Signs Vital Sign Reading Time Taken Comments Blood Pressure 124/82 06/23/2020 3:00 PM CDT Pulse 75 06/23/2020 3:00 PM CDT Temperature - - Respiratory Rate - - Oxygen Saturation 97% 06/23/2020 3:00 PM CDT Inhaled Oxygen Concentration - - Weight 84.8 kg (187 lb) 06/23/2020 3:00 PM CDT Height - - Body Mass Index 28.43 11/23/2018 9:44 AM CDT documented in this encounter Functional [...] * Patient Instructions* Shannon Cordon MD - 06/23/2020 3:27 PM CDT Options to treat your atrial fibrillation include 1) staying the course 2) Increasing flecainide to 150 mg twice daily 3) Adding metoprolol 4) Switching to Tikosyn/Sotalol 5) Switching to Multaq 6) Ablation documented in this encounter Progress Notes * Shannon Cordon MD - 06/23/2020 3:00 PM CDT ELECTROPHYSIOLOGY OFFICE VISIT 06/23/2020 Kenji Camara 1960 56 y[address]o. male [address] Elias Mayorga [place]: [place] [address] [place] [address] REASON FOR VISIT/CHIEF COMPLAINT Follow up of the following medical problems Paroxysmal AF - 11/07/14 Hx of atrial flutter s/p ablation S/p repeat EP study with no inducible arrhythmia besides AF Flecainide therapy Hx of DVT HPI Kenji Camara returns today for followup of the above medical diagnoses.since last seen he hasbeen making lifestyle changes (sleep, diet, alcohol abstinence) but he continues to have palpitations. Over the last 3-4 weeks, he has had about 5 episodes each lasting a few hrs. During these episode s, he tries to concentrate on being relaxed, he has some lightheadedness but not near syncope or syncope. He feels he is breathing harder too. Otherwise he feels well when not in AF. He has taken an additional half tab (50 mg) X 2 on occasion. CURRENT MEDS Outpatient Prescriptions Marked as Taking [...] Sinus rhythm 65 bpm , no preexcitation, WA interval 164 ms, no Q waves, nml QRS axis, 90 ms QRS duration, non specific st-t abnormalities , QTc 407 ms ASSESSMENT Paroxysmal AF - 11/07/14 Hx of atrial flutter s/p ablation S/p repeat EP study with no inducible arrhythmia besides AF On Flecainide therapy Hx of DVT Hx of loop recorder implantation 09/07/14 (battery is depleted) PLAN He continues to have paroxysms of atrial fibrillation despite flecainide 100 mg BID and lifestyle changes. We discussed options which include 1) staying the course 2) Increasing flecainide to 150 mg twice daily 3) Adding metoprolol 4) Switching to Tikosyn/Sotalol 5) Switching to Multaq 6) AF Ablation Following an extensive discussion, he is staying the course. He will let me know if he changes his mind in the future. He will continue flecainide 100 mg BID. Advised not to take more than an additional 50 mg X 1 dose for breakthrough episodes. He is on Aspirin 325 mg daily for stroke prevention (he has refused continuing anticoagulation in the past due to bleeding risk , used to be on Xarelto in the past ). Follow up in 12 months It was a pleasure attending to Kenji Hampton Jax today. Thank you for the opportunity to participate in his care. Shannon Savage MD, FACC, [facility] Cardiac Coordinating Producer [facility] [phone] (Office) [phone] (On-call exchange) documented in this encounter Plan of Treatment Upcoming Encounters Date Type Department Care Team (Late st Contact Info) Description 03/22/2024 9:00 AM DISTRICT RECRUITER Office Visit [facility] - Ophthalmology [address] [place] [address] Ernesto Hawkins MD [address] [place] [address] documented as of this encounter Procedures Procedure Name Priority Date/Time Associated Diagnosis Comments EKG 12-LEAD Routine 06/23/2020 3:07 PM CDT PAF (paroxysmal atrial fibrillation) (HCC) documented in this encounter Results * EKG 12-LEAD (06/23/2020 3:07 PM CDT) Ventricular Rate 65 BPM SJ SL MED GRP MUSE Atrial Rate 65 BPM SJ SL ME D GRP MUSE P-R Interval 164 ms SJ SL M ED GRP MUSE QRS Duration ms 90 ms SJ S L MED GRP MUSE Q-T Interval ms 392 ms SJ S L MED GRP MUSE QTC Calculation (Bezet) 407 ms SJ SL MED GRP MUSE Calculated P Taft 71 degrees SJ SL MED GRP MUSE Calculated R Taft 76 degrees SJ SL MED GRP MUSE Calculated T Taft 32 degrees SJ SL MED GRP MUSE Interpretation EKG Normal sinus rhythm Normal ECG Confirmed by Shannon Cordon ([id number]) on 07/02/2020 8:01:44 AM SJ SL MED GRP MUSE 06/23/2020 3:07 PM CDT 07/02/2020 8:01 AM CDT Shannon Cordon MD ECG ORDERABLES SJ SL MED GRP MUSE documented in this encounter Visit Diagnoses Diagnosis PAF (paroxysmal atrial fibrillation) (HCC)- Primary Atrial fibrillation Encounter for monitoring flecainide therapy Encounter for therapeutic drug monitoring S/P ablation of atrial flutter Other postprocedural status documented in this encounter Care Teams Card Grinder Relationship Specialty Start Date End Date Elias Mayorga MD [address] [place] [address] [address] [place] [address] PCP - General Internal Medicine 09/07/14 Elias Mayorga MD [facility] [place] [address] PCP - Attributed-WellFirst EHP STL 08/25/19 08/12/22 Stephanie Prasad RN [address] [facility] [address] [place] [address] Celluloid Trimmer 10/06/13 Lan Bragg DO [address] [facility] [address] [place] [address] Orthopedic Surgery 06/02/14 documented as of this encounter
--- OUTSIDE RECORDS SUMMARY | 2024-03-07 21:56 | XMS_ITS | Encounter Summary ---
Author Organization [facility] Address [address] [place] [address] Care Team Providers Care Blow Off Worker Name Role Phone Stephanie Prasad RN Unavailable [phone] Lan Bragg DO Unavailable Elias Mayorga MD Primary Care Provider [phone] Encounter Details Date Type Department Care Team (Latest Contact Info) Description 03/25/2016 4:07 PM SCARFER OPERATOR - 03/25/2016 11:59 PM [facility] Hospital Encounter [facility] Health Imaging Services - Radiology [address] [place] [address] Elias Mayorga MD [address] [facility] [address] [place] [address] Discharge Disposition: Home or Self Care Social [...] at bedtime flecainide (TAMBOCOR) 100 MG tablet TAKE 1 TABLET BY MOUTH TWICE DAILY 180 Tab 2 03/13/2016 06/13/2017 multivitamin daily (THERAGRAN) tablet Take 1 Tab by mouth daily with food 02/05/2018 documented as of this encounter Plan of Treatment Upcoming Encounters Date Type Department Care Team (Late st Contact Info) Description 03/22/2024 9:00 AM SCARFER OPERATOR Office Visit [facility] - Ophthalmology [address] [place] [address] Ernesto Hawkins MD [facility] [place] [address] documented as of this encounter Procedures Procedure Name Priority Date/Time Associated Diagnosis Comments XR HIP LEFT 2VW OR MORE Routine 03/25/2016 4:31 PM SCARFER OPERATOR Other chronic pain documented in this encounter Results * XR HIP 2+ VW LEFT (03/25/2016 4:31 PM SCARFER OPERATOR) Anatomical Region Laterality Modality Pelvis, Lower Extremity Radiogra phic Imaging 03/25/2016 5:17 PM SCARFER OPERATOR Impressions 03/25/2016 5:18 PM SCARFER OPERATOR UNREMARKABLE 2 VIEW EXAMINATION OF THE LEFT HIP Narrative 03/25/2016 5:18 PM SCARFER OPERATOR LEFT HIP 2 VIEWS INDICATION: Left hip [...] Elias Mayorga MD DIAGNOSTIC IMAGING O RDERABLES documented in this encounter Visit Diagnoses Diagnosis Other chronic pain documented in this encounter Care Teams Blow Off Worker Relationship Specialty Start Date End Date Elias Mayorga MD [address] [facility] [address] [place] [address] PCP - General Internal Medicine 09/07/14 Stephanie Prasad RN [address] [place] [address] Drafter Plumbing 10/06/13 Lan Bragg DO [address] [place] [address] Orthopedic Surgery 06/02/14 documented as of this encounter
--- OUTSIDE RECORDS SUMMARY | 2024-03-07 21:56 | XMS_ITS | Encounter Summary ---
Author Organization [facility] Address [address] [facility] [place] [address] Care Team Providers Care Accountancy Professor Name Role Phone Stephanie Prasad RN Unavailable Lan Bragg DO Unavailable Elias Mayorga MD Primary Care Provider [phone] Elias Mayorga MD Unavailable [phone] Reason for Visit * Reason Onset Date Comments COVID-19 IMMUNIZATION/INJECTION 03/08/2020 Encounter Details Date Type Department Care Team (Latest Contact Info) Description 03/08/2020 4:30 PM PROFILING MACHINE SET UP OPERATOR TOOL Clinical Support [facility] COVID [address] [place] [phone] Need for vaccination Social History Tobacco Use [...] COVID-19? No / Unsure 02/17/2020 11:40 AM PROFILING MACHINE SET UP OPERATOR TOOL documented as of this encounter Functional Status [...] this encounter Patient Instructions * Patient Instructions* Titus Gan RN - 03/08/2020 4:20 PM PROFILING MACHINE SET UP OPERATOR TOOL Images from the original note were not included. Vaccine recipients are encouraged to enroll in the [facility] V-SAFE program for post vaccination monitoring. Sign up with your smartphone's browser at Sounday.cdc.gov or Aim your smartphone's camera at this code. ILING MACHINE SET UP OPERATOR TOOL documented in this encounter Progress Notes * Titus Gan RN - 03/08/2020 4:20 PM CST COVID screening checklist was reviewed with the patient. The Information sheet was given prior to administration. Injection site aseptically cleansed and injection given per Immunization(s) protocol.See Imm/Injections activity for details. ILING MACHINE SET UP OPERATOR TOOL documented in this encounter Plan of Treatment Upcoming Encounters Date Type Department Care Team (Late st Contact Info) Description 03/22/2024 9:00 AM PROFILING MACHINE SET UP OPERATOR TOOL Office Visit [facility] - Ophthalmology [address] [place] [address] Ernesto Hawkins MD [address] [place] [address] documented as of this encounter Visit Diagnoses Diagnosis Need for vaccination- Primary Need for prophylactic vaccination and inoculation against unspecified single disease documented in this encounter Care Teams Accountancy Professor Relationship Specialty Start Date End Date Elias Mayorga MD [facility] [facility] [address] [place] [address] PCP - General Internal Medicine 09/07/14 Elias Mayorga MD [address] [place] [address] PCP - Attributed-[employer] EHP STL 08/25/19 08/12/22 Stephanie Prasad RN [address] [place] [address] Spine Nurse 10/06/13 Lan Bragg DO [address] [place] [address] Orthopedic Surgery 06/02/14 documented as of this encounter
--- OUTSIDE RECORDS SUMMARY | 2024-03-07 21:56 | XMS_ITS | Encounter Summary ---
Author Organization [facility] Address [address] [facility] [place] [address] Care Team Providers Care Regional Refrigerated Cdl Truck Driver Name Role Phone Stephanie Prasad RN Unavailable [phone] Lan Bragg DO Unavailable Elias Mayorga MD Primary Care Provider [phone] Reason for Referral * Cardiac (Routine) - Closed Specialty Diagnoses / Procedures Referred By Contac t Referred To Contact Cardiology Diagnoses Palpitations Procedures ECHOCARDIOGRAM 2D WITH DOPPLER Shannon Cordon MD [address] [place] [address] Referral ID Status Reason Start Date Expiration Date Visits Re quested Visits Authorized [id number] Closed 11/24/2018 12/24/2018 1 1 * Cardiac (Routine) - Closed Specialty Diagnoses / Procedures Referred By Contac t Referred To Contact Diagnoses Palpitations Procedures EVENT MONITOR Shanonn Cordon MD [address] [place] [address] Referral ID Status Reason Start Date Expiration Date Visits Re quested Visits Authorized [id number] Closed 11/23/2018 05/22/2019 1 1 * Procedure (Routine) - Closed Specialty Diagnoses / Procedures Referred By Contac t Referred To Contact Cardiology Diagnoses PAF (paroxysmal atrial fibrillation) (HCC) Procedures EKG 12-LEAD Shannon Cordon MD [address] [place] [address] Referral ID Status Reason Start Date Expiration Date Visits Re quested Visits Authorized [id number] Closed 11/23/2018 05/22/2019 1 1 Reason for Visit * Reason Comments Atrial Fibrillation Encounter Details Date Type Department Care Team (Late st Contact Info) Description 11/23/2018 9:45 AM CDT Office Visit [facility] Health Heart & Vascular Care [address] [place] [address] Shannon Cordon MD [address] [place] [address] PAF (paroxysmal atrial fibrillation) (HCC) (Primary Dx); Palpitations Social History Tobacco Use Types Packs/Day [...] Sign Reading Time Taken Comments Blood Pressure 126/72 11/23/2018 9:44 AM CDT Pulse 70 11/23/2018 9:44 AM CDT Temperature - - Respiratory Rate - - Oxygen Saturation 98% 11/23/2018 9:44 AM CDT Inhaled Oxygen Concentration - - Weight 85.3 kg (188 lb) 11/23/2018 9:44 AM CDT Height 172.7 cm (5' 8 ) 11/23/2018 9:44 AM CDT Body Mass Index 28.59 11/23/2018 9:44 AM CDT documented in this [...] * Patient Instructions* Shannon Cordon MD - 11/23/2018 10:05 AM CDT 1 week event monitor 2d echo We will re-evaluate based on the above results documented in this encounter Progress Notes * Shannon Cordon MD - 11/23/2018 9:53 AM CDT ELECTROPHYSIOLOGY OFFICE VISIT 06/13/2017 Kenji Hampton Jax 1960 56 y[address]o. male [address] Elias Mayorga MD [place]: [place] [address] [place] [address] REASON FOR VISIT/CHIEF COMPLAINT Follow up of the following medical problems Paroxysmal AF - 11/07/14 Hx of atrial flutter s/p ablation S/p repeat EP study with no inducible arrhythmia besides AF Flecainide therapy Hx of DVT HPI The patient returns today for followup of the above medical diagnoses. He recently started having palpitations described as skipping and racing heart beats. She feels tired during these episodes. These have occurred despite still taking flecainide. CURRENT MEDS Outpatient Prescriptions Marked as Taking [...] affect, nl mood MUSCULOSKELETAL - nl gait DATA Loop recorder interrogation- device battery is completely depleted. Could not be interrogated 11/23/2018 Sinus rhythm 67 bpm , no preexcitation, NE interval 158 ms, no Q waves, nml QRS axis, 88 ms QRS duration, no st-t abnormalities , QTc 420 ms ASSESSMENT Paroxysmal AF - 11/07/14 Hx of atrial flutter s/p ablation S/p repeat EP study with no inducible arrhythmia besides AF Flecainide therapy Hx of DVT Hx of loop recorder implantation 09/07/14 PLAN 2 week event monitor 2d echo Reevaluate with above tests If having episodes of AF, he will like to proceed with an AF ablation. It was a pleasure attending to Kenji Berta Camara today. Thank you for the opportunity to participate in his care. Shannon Cordon M.D. Cardiac Professor Of Violin [facility] Heart [place] [phone] (office) [phone] (pager) documented in this encounter Plan of Treatment Upcoming Encounters Date Type Department Care Team (Late st Contact Info) Description 03/22/2024 9:00 AM CERAMIST Office Visit [facility] - Ophthalmology [address] [place] [address] Ernesto Hawkins MD [facility] [place] [phone] documented as of this encounter Procedures Procedure Name Priority Date/Time Associated Diagnosis Comments EKG 12-LEAD Routine 11/23/2018 PAF (paroxysmal atrial fibrillation) ([facility]) documented in this encounter Results * EVENT MONITOR (12/03/2018 8:50 AM CDT) Narrative Yas Carrion - 12/03/2018 8:50 AM CDT Shannon Cordon MD ? 12/19/2018 ??6:21 PM [facility] HEALTH HEART AND VASCULAR MOBILE CARDIAC TELEMETRY MONITORING ? Pts name: Kenji Hampton Jax : 1960 Ordering Physician: Dr. Bravo Palmer Physician: Dr. Cordon Date of service : [...] Cordon MD - 12/03/2018 8:50 AM CDT [facility] HEALTH HEART AND VASCULAR MOBILE CARDIAC TELEMETRY MONITORING ? Pts name: Kenji Hampton Jax : 1960 Ordering Physician: Dr. Bravo Palmer Physician: Dr. Cordon Date of service : [...] MD Shannon Cordon MD CARDIAC SERVICES ORDERABLES * EKG 12-LEAD (11/23/2018) Shannon Cordon MD ECG ORDERABLES SS RESULT SCAN documented in this encounter Visit Diagnoses Diagnosis PAF (paroxysmal atrial fibrillation) (HCC)- Primary Atrial fibrillation Palpitations Palpitations- Primary documented in this encounter Care Teams Regional Refrigerated Cdl Truck Driver Relationship Specialty Start Date End Date Elias Mayorga MD [address] [facility] [address] [place] [address] PCP - General Internal Medicine 09/07/14 Stephanie Prasad RN [address] [facility] [address] [place] [address] Senior Financial Accountant 10/06/13 Lan Bragg DO [address] [facility] [address] [place] [address] Orthopedic Surgery 06/02/14 documented as of this encounter
--- OUTSIDE RECORDS SUMMARY | 2024-03-07 21:56 | XMS_ITS | Encounter Summary ---
Author Organization [facility] Address [address] [facility] [place] [address] Care Team Providers Care Lead Shop Operator Name Role Phone Stephanie Prasad RN Unavailable [phone] Lan Bragg DO Unavailable Elias Mayorga MD Primary Care Provider [phone] Reason for Referral * Cardiac (Routine) - Closed Specialty Diagnoses / Procedures Referred By Rosa t Referred To Contact Cardiology Diagnoses Palpitations Procedures ECHOCARDIOGRAM 2D WITH DOPPLER Shannon Valadez MD [address] [place] [address] Referral ID Status Reason Start Date Expiration Date Visits Re quested Visits Authorized [id number] Closed 11/30/2018 05/29/2019 1 1 Reason for Visit * Cardiac (Routine) - Closed Specialty Diagnoses / Procedures Referred By Rosa espinosa Referred To Contact Cardiology Diagnoses Palpitations Procedures ECHOCARDIOGRAM 2D WITH DOPPLER Shannon Valadez MD [address] [place] [address] Referral ID Status Reason Start Date Expiration Date Visits Re quested Visits Authorized [id number] Closed 11/24/2018 12/24/2018 1 1 Encounter Details Date Type Department Care Team (Latest Contact Info) Description 11/30/2018 2:56 PM CDT - 11/30/2018 11:59 PM CDT Hospital Encounter [facility] [address] [place] [address] Shannon Valadez MD [address] [place] [address] Discharge Disposition: Home or Self Care Social [...] 07/26/2017 01/17/2021 documented as of this encounter Progress Notes * Shannon Valadez MD - 11/30/2018 11:59 PM CDT I sent a [employer] message to patient informing him of a normal 2D echo Shannon Valadez MD 12/03/2018 7:01 PM documented in this encounter Plan of Treatment Upcoming Encounters Date Type Department Care Team (Late st Contact Info) Description 03/22/2024 9:00 AM WINDOW GLAZIER Office Visit [facility] - Ophthalmology [address] [place] [phone] Ernesto Hawkins MD [address] [place] [address] documented as of this encounter Procedures Procedure Name Priority Date/Time Associated Diagnosis Comments ECHOCARDIOGRAM 2D WITH DOPPLER Routine 11/30/2018 3:09 PM CDT Palpitations documented in this encounter Results * ECHOCARDIOGRAM 2D WITH DOPPLER (11/30/2018 3:09 PM CDT) 11/30/2018 3:09 PM CDT Narrative [facility] - 12/02/2018 1:20 PM CDT [facility] [place] [address] Transthoracic Echocardiogram 2D, M-mode, Doppler, and Color Doppler Patient: SERG CAMARA MR number: [id number] Height: 69 in Weight: 187.7 lb BSA: 2.01 m?? Study date: 30-Nov-2018 : 1960 Age: 58 years Gender: Male Race: 2 Allergies: NAPROXEN REFERRING PHYSICIAN: ??SHANNON VALADEZ HIDE SPLITTER: ??Inderjit DICKSON GLOVE PRESSER: ??Ronnie Dorado MD Summary: - ??Clinical question: [...] Procedure: The study was performed in the [facility]. This was a routine study. STRAIN RATE [...] Procedure Note Ronnie Dorado MD - 12/02/2018 [facility] [place] [address] [place] [address] Transthoracic Echocardiogram 2D, M-mode, Doppler, and Color Doppler Patient: SERG CAMARA MR number: [id number] Height: 69 in Weight: 187.7 lb BSA: 2.01 m?? Study date: 30-Nov-2018 : 1960 Age: 58 years Gender: Male Race: 2 Allergies: NAPROXEN REFERRING PHYSICIAN: SHANNON VALADEZ HIDE SPLITTER: Inderjit Ro READING GLOVE PRESSER: Ronnie Dorado MD Summary: - Clinical question: [...] Procedure: The study was performed in the [facility]. This was a routine study. STRAIN RATE [...] 02-Dec-2018 13:16:38 Shannon Valadez MD ECHO ORDERABLES [facility] documented in this encounter Visit Diagnoses Diagnosis Palpitations documented in this encounter Care Teams Lead Shop Operator Relationship Specialty Start Date End Date Elias Mayorga MD [address] [place] [address] PCP - General Internal Medicine 09/07/14 Stephanie Prasad RN [address] [place] [address] Flour Distributor 10/06/13 Lan Bragg DO [address] [place] [address] Orthopedic Surgery 06/02/14 documented as of this encounter
--- OUTSIDE RECORDS SUMMARY | 2024-03-07 21:56 | XMS_ITS | Encounter Summary ---
Author Organization [facility] Address [address] [facility] [place] [address] Care Team Providers Care Street Photographer Name Role Phone Stephanie Prasad RN Unavailable [phone] Lan Bragg DO Unavailable Elias Mayorga MD Primary Care Provider [phone] Reason for Visit * Auth/Cert Specialty Diagnoses / Procedures Referred By Rosa espinosa Referred To Contact Procedures COLONOSCOPY SCREEN Referral ID Status Reason Start Date Expiration Date Visits Re quested Visits Authorized [id number] 1 1 Encounter Details Date Type Department Care Team (Late st Contact Info) Description 06/16/2015 8:34 AM CDT Anesthesia Event Formerly [facility] - Endoscopy Services [address] [place] [address] Jona Liao, BUSINESS INTELLIGENCE REPORTING ANALYST-COLLECTION MANAGER [id number] [place] [address] ANESTHESIA [place] [id number] Anesthesia Record Procedure Summary Procedure Name Responsible Anesthesiologist Anesthesia Start Time Anesthesia Stop Time COLONOSCOPY SCREEN 06/16/15 0834 06/16/15 0850 Events Date Time Event Comment 06/16/2015 0832 0834 An Start 0834 Out OR Start Data 0834 PT Reassessment Patient and Vital Signs reassessed prior to induction. 0834 Elect Sign The providers l isted as staff are the responsible providers for the case. 0850 Handoff Checklist follo wed: 1. Identification of patient 2. Identification of responsible nurse 3. Discussion of pertinent medical history 4. Discussion of surgical/procedure course 5. Intraoperative anesthetic management and concerns 6. Expectations/plans for the early post-procedure period 7. Opportunity for questions and acknowledgement of report 0850 Out OR Stop Data 0850 An Stop Meds Name Total lidocaine (XYLOCAINE) 2% injection (20 m g/ml) 60 mg propofol (DIPRIVAN) injection 10mg/ml (E NDO USE) 32 mL 0.9% NaCl infusion 100 mL * Agents Name O2 * Blood No blood administrations on file. Lines, Drains, and Airways Type Details Placement Removal Peripheral IV Date: 06/16/15; Time : 800; Orientation: Right; Placed By: jeff batista; Tolerance: Well 06/16/15 0801 by Martha Olivier RN 06/16/15 0942 by Yas Bray RN documented in this encounter Social History Tobacco Use Types Packs/Day Years [...] as of this encounter Progress Notes * Jona Liao, BUSINESS INTELLIGENCE REPORTING ANALYST-COLLECTION MANAGER - 06/16/2015 8:50 AM CDT ANESTHESIA POSTPROCEDURE EVALUATION Kenji Camara is a 54 y.o. male Temp: 36.7 ??C Pulse: 70 Resp: 18 BP: 130/91 mmHg SpO2: 98 % Pain Rating Score #1: 4 Anesthesia Type: MAC Mental status: sufficiently recovered from acute administration of anesthesia to participate in theevaluation. Level of consciousness: awake No numbness, tingling or visual disturbances present. General appearance: well-appearing Respiratory function: natural airway. Cardiac: stable Pain: comfortable/acceptable PONV: None Postop hydration: adequate. Patient may be released from anesthesia care. Perioperative Complications: No value filed. ASA/AQI Tracking Events: No value filed. documented in this encounter Consult Notes * Jona Liao, BUSINESS INTELLIGENCE REPORTING ANALYST-COLLECTION MANAGER - 06/16/2015 8:32 AM CDT Pre-anesthesia Evaluation Procedure(s): COLONOSCOPY SCREEN Diagnosis: COLON SCREENING Vital Signs: Temp: 36.7 ??C (06/16 751) Pulse: 70 (06/15 828) Resp: 18 (06/15 828) BP: 130/91 mmHg (06/15 830) SpO2: 98 % (06/15 828) BMI: Estimated body mass index is 27.07 kg/(m^2) as calculated from the following: Height as of this encounter: 5' 8 (1.727 m). Weight as of this encounter: 178 lb (80.74 kg). History: Past Medical History Diagnosis Date ??? Atrial flutter 12/30/2013 ??? S/P ablation of atrial flutter 01/11/14 [facility]; Successful and uncomplicated ablation of typical atrial flutter circuit, ??? DVT (deep venous thrombosis) left leg upper calf ??? Afib 2014 Past Surgical History Procedure Laterality Date ??? Shoulder arthroscopy ??? Carpal tunnel surgery ??? Hernia repair, inguinal 04/11/11 ??? Ablation for atrial fibrillation/flutter 01/11/14 [facility]; Successful and uncomplicated ablation of typical atrial flutter circuit, reports that he has never smoked. He does not have any smokeless tobacco history on file. He reports that he drinks about 0.5 oz of alcohol per week. He reports that he does not use illicit drugs. Allergies: is allergic to naproxen. Medications: Home Medications for Outpatients: No current outpatient prescriptions on file. Home Medications for Inpatients: Prescriptions prior to admission Medication Sig Dispense Refill ??? flecainide (TAMBOCOR) 100 MG tablet Take 1 Tab by mouth 2 times daily 180 Tab 3 ??? multivitamin daily (THERAGRAN) tablet Take 1 Tab by mouth daily with food ??? rosuvastatin (CRESTOR) 10 MG tablet Take 10 mg by mouth at bedtime Inpatient Medications: Current Facility-Administered Medications Medication Dose Route Frequency Provider Last Rate Last Dose ??? 0.9% NaCl infusion Intravenous Continuous Shailesh Brar MD 20 mL/hr at 06/16/15 0748 Physical Exam: NPO status: no solids since midnight Oriented to person, place and time Airway: II Neck ROM: full Dental exam findings: normal/ok Pulmonary exam: breath sounds CTA Heart sounds: S1 S2 Spinal Alignment: symmetrical Review of Systems: Negative for anesthesia complications ECG reviewed Plan for Anesthesia: Reviewed allergies, history and medications ASA Score: 2. Anesthesia plan: MAC Planned method of induction: intravenous Planned postop destination: PACU Anesthesia plan, risks and benefits discussed with patient Anesthesia consent: obtained Plan accepted yes Discussed anesthesia plan with: COLLECTION MANAGER. documented in this encounter Plan of Treatment Upcoming Encounters Date Type Department Care Team (Late st Contact Info) Description 03/22/2024 9:00 AM TRAIN ELECTRONIC TECHNICIAN Office Visit [facility] - Ophthalmology [address] [place] [phone] Ernesto Hawkins MD [address] [place] [address] [phone] documented as of this encounter Visit Diagnoses [...] 06/16/2015 7:48 AM CDT 20 mL/ hr lidocaine (XYLOCAINE) 2 % injection PRN, Starting on Fri06/16/15 at 0835, Until Fri06/16/15 at 0850, Anesthesia Intra-op $ Given 06/16/2015 8:35 AM CDT 60 mg propofol (DIPRIVAN) injection CONTINUOUS PRN, Starting on Fri06/16/15 at 0835, Until Fri06/16/15 at 0850, Anesthesia Intra-op $ New Bag/Syringe 06/16/2015 8:35 AM CDT documented in this encounter Care Teams Street Photographer Relationship Specialty Start Date End Date Elias Mayorga MD [address] [facility] [address] [place] [address] PCP - General Internal Medicine 09/07/14 Stephanie Prasad RN [address] [facility] [address] [place] [address] Broiler Supervisor 10/06/13 Lan Bragg DO [address] [facility] [address] [place] [address] Orthopedic Surgery 06/02/14 documented as of this encounter
--- OUTSIDE RECORDS SUMMARY | 2024-03-07 21:56 | XMS_ITS | Encounter Summary ---
Author Organization [facility] Address [address] [place] [address] Care Team Providers Care Labelling Machine Operator Name Role Phone Stephanie Prasad RN Unavailable [phone] Lan Bragg DO Unavailable Elias Mayorga MD Primary Care Provider [phone] Reason for Visit * Reason Onset Date Comments Reminder Call 07/17/2015 [facility] Encounter Details Date Type Department Care Team (Late st Contact Info) Description 07/17/2015 Telephone [facility] Heart & Vascular Care [address] [facility] [address] [place] [address] Shannon Cordon MD [address] [facility] [address] [place] [address] Reminder Call ([facility]) Social History Tobacco Use [...] * Telephone Encounter - Molly Lozoya - 07/17/2015 10:48 AM CDT Pt reminded to transmit remotely at home today with [employer] box. documented in this encounter Plan of Treatment Upcoming Encounters Date Type Department Care Team (Late st Contact Info) Description 03/22/2024 9:00 AM CERTIFIED ADDICTION COUNSELOR Office Visit [facility] - Ophthalmology [facility] [place] [phone] Ernesto Hawkins MD [address] [place] [phone] documented as of this encounter Visit Diagnoses Not on filedocumented in this encounter Care Teams Labelling Machine Operator Relationship Specialty Start Date End Date Elias Mayorga MD [address] [place] [address] PCP - General Internal Medicine 09/07/14 Stephanie Prasad RN [address] [place] [address] Car Customizer 10/06/13 Lan Bragg DO [address] [place] [address] Orthopedic Surgery 06/02/14 documented as of this encounter
--- OUTSIDE RECORDS SUMMARY | 2024-03-07 21:56 | XMS_ITS | Encounter Summary ---
Author Organization [facility] Address [address] [facility] [place] [address] Care Team Providers Care Field Foreman Name Role Phone Stephanie Prasad RN Unavailable [phone] Lan Bragg DO Unavailable Elias Mayorga MD Primary Care Provider [phone] Reason for Visit * Reason Comments Refill Request Encounter Details Date Type Department Care Team (Late st Contact Info) Description 03/12/2016 Refill [facility] [address] [place] [address] Shannon Cordon MD [address] [address] Refill Request Social History Tobacco Use Types [...] encounter Miscellaneous Notes * Telephone Encounter - Mary Juarez - 03/14/2016 9:26 AM CST Patient has an appointment on 05/31/2016. [employer] * Telephone Encounter - Scott Hope - 03/13/2016 1:32 PM CST LM on pt. cell phone for pt to call and schedule f/u with Dr. Cordon with the next 3 months. [employer] * Telephone Encounter - Precious Beavers PA-C - 03/13/2016 12:38 PM CST He will need a follow OV with in next 3 months. Can you schedule with myself and Dr. Nayan harris? I don't see one schedule yet. I did refill Rx. ThanksPrecious PA-C 03/13/2016 12:39 PM [employer] * Telephone Encounter - Scott Hope - 03/13/2016 8:44 AM CST Medication pended-needs to be signed Medicine Refill Request Source: In Basket message Next appointment with Jn Cordon MD on Visit date GREGORIA 06/05/15 F/U 6 MTH TO 1 YR Requested Prescriptions Pending Prescriptions Disp Refills ??? flecainide (TAMBOCOR) 100 MG tablet [Pharmacy Med Name: FLECAINIDE 100MG TABLETS] 180 Tab 1 Sig: TAKE 1 TABLET BY MOUTH TWICE DAILY Recent Labs Component Name 07/12/14 0756 SODIUM 140 POTASSIUM 4.8 CHLORIDE 102 CO2 21 BUN 13 CREATININE 0.96 GLUCOSE 89 CALCIUM 9.6 Symptoms: not asked Action: In Basket message sent to physician for medication approval. [employer] documented in this encounter Plan of Treatment Upcoming Encounters Date Type Department Care Team (Late st Contact Info) Description 03/22/2024 9:00 AM ASSEMBLER FLEXIBLE LEADS Office Visit [facility] - Ophthalmology [address] [place] [phone] Ernesto Hawkins MD [address] [place] [phone] documented as of this encounter Visit Diagnoses Not on filedocumented in this encounter Care Teams Field Foreman Relationship Specialty Start Date End Date Elias Mayorga MD [address] [place] [address] PCP - General Internal Medicine 09/07/14 Stephanie Prasad RN [address] [place] [address] Waxing Machine Operator Helper 10/06/13 Lan Bragg DO [address] [place] [address] Orthopedic Surgery 06/02/14 documented as of this encounter
--- OUTSIDE RECORDS SUMMARY | 2024-03-07 21:56 | XMS_ITS | Encounter Summary ---
Author Organization [facility] Address [address] [place] [address] Care Team Providers Care Culinary Assistant Name Role Phone Stephanie Prasad RN Unavailable [phone] Lan Bragg DO Unavailable Elias Mayorga MD Primary Care Provider [phone] Elias Mayorga MD Unavailable [phone] Reason for Visit * Reason Comments Palpitations Pt reports hx of toribio b, been having palpitations for several days , no chest pain but having some associated dizziness. no abdominal pain, NVD. No fevers or cough. Reports some HERNANDEZ Encounter Details Date Type Department Care Team (Late st Contact Info) Description 04/14/2022 1:11 PM STILL OPERATOR GIN - 04/14/2022 3:20 PM STILL OPERATOR GIN Emergency ER at [address] [id number] [place]rez [place] [id number] [place] [id number] Atrial flutter with rapid ventricular response (HCC) (Primary Dx); Palpitations Discharge Disposition: Home or Self Care Social [...] Sign Reading Time Taken Comments Blood Pressure 107/77 04/14/2022 3:08 PM STILL OPERATOR GIN Pulse 62 04/14/2022 3:08 PM STILL OPERATOR GIN Temperature 36.9 ??C (98.5 ??F) 04/14/2022 1:08 PM CS T Respiratory Rate 10 04/14/2022 3:08 PM STILL OPERATOR GIN Oxygen Saturation 97% 04/14/2022 3:08 PM STILL OPERATOR GIN Inhaled Oxygen Concentration - - Weight - - Height 172.7 cm (5' 8 ) 04/14/2022 1:08 PM STILL OPERATOR GIN Body Mass Index - - documented in this encounter Functional Status Functional [...] this encounter Discharge Instructions * Discharge Instructions* Andrez Calles MD - 04/14/2022 3:01 PM STILL OPERATOR GIN Thank you for giving us the opportunity to care for you today. If at any point you are becoming more ill, please call your doctor or return here. You are always welcome back. If you have any questions about this visit, concerns about your symptoms, questions about your medications or other concerns, please give me a call or text: Direct number: [phone]. -Andrez Calles MD, FACEP, FAAEM L OPERATOR GIN documented in this encounter Medications at Time of Discharge Medication Sig Dispensed Refills Start Date End Date B Complex Vitamins (VITAMIN B COMPLEX PO) Eliquis 5 MG tablet TAKE 1 TABLET BY MOUTH TWICE DAILY 60 tablet 3 01/25/2022 rosuvastatin (CRESTOR) 10 MG tablet Take 1 [...] as of this encounter Progress Notes * Tg Godoy RN - 04/14/2022 3:05 PM CST 1436 time is actually 1432 for intraprocedure data L OPERATOR GIN documented in this encounter ED Notes * Tg Godoy RN - 04/14/2022 3:11 PM CST Pt alert and awake. at bedside. Aware of poc to dc if continues to do well. L OPERATOR GIN * Tg Godyo RN - 04/14/2022 2:00 PM CST Pt aware of procedure to be performed. Aware of process and poc and agreeable. L OPERATOR GIN * Andrez Calles MD - 04/14/2022 1:42 PM CST History of Present Illness Kenji Camara is a 61 year old male Patient information was obtained from primarily from the patient, spouse, who is bedside, electrophysiology notes, prior hospital visits, old EKGs History/Exam limitations: None Chief Complaint: Palpitations (Pt reports hx of afib, been having palpitations for several days , no chest pain but having some associated dizziness. no abdominal pain, NVD. No fevers or cough. Reports some EHRNANDEZ) Kenji Camara is a pleasant 61 year old male who presents with palpitations. Patient has a history of paroxysmal atrial fibrillation. He tells me that he takes Eliquis daily and he had a prior cardioversion as well as ablation. He tells me that a run yesterday morning he started to notice it heart was fast and he felt a bit lightheaded. A little bit short of breath as well. Denies any chest pain. Patient took his flecainide without relief. Last meal was yesterday evening. States he is compliant with his Eliquis. Relevant Medical History Relevant Medical History Past Medical History: Past Medical History: Diagnosis Date ??? Afib 2014 ??? Atrial flutter 12/30/2013 ??? DVT (deep venous thrombosis) left leg upper calf ??? S/P ablation of atrial flutter 01/11/14 [facility]; Successful and uncomplicated ablation of typical atrial flutter circuit, Past Surgical History: Past Surgical History: Procedure Laterality Date ??? ABLATION FOR ATRIAL FIBRILLATION/FLUTTER 01/11/14 [facility]; Successful and uncomplicated ablation of typical atrial flutter circuit, ??? CARPAL TUNNEL SURGERY ??? COLONOSCOPY 06/16/2015 COLONOSCOPY SCREEN ??? HERNIA REPAIR, INGUINAL 04/11/11 ??? 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 Cordon. Card [facility]. Successful and uncomplicated ILR implantation. ??? Shoulder Arthroscopy Home Medications: No current facility-administered medications on file prior to encounter. Current Outpatient Medications on File Prior to Encounter Medication Sig Dispense Refill ??? amoxicillin (AMOXIL) 500 MG capsule Amoxicillin- 1000mg orally as a loading dose, followed by 500mg orally TID Reasons: Infection of Ears, Nose or Throat (Patient not taking: Reported on 11/16/2021) 31 capsule 0 ??? B Complex Vitamins (VITAMIN B COMPLEX PO) ??? Eliquis 5 MG tablet TAKE 1 TABLET BY MOUTH TWICE DAILY 60 tablet 3 ??? escitalopram (LEXAPRO) 5 MG tablet Take 5 mg by mouth once daily ??? flecainide (TAMBOCOR) 100 MG tablet TAKE 1 TABLET BY MOUTH TWICE DAILY 180 tablet 0 ??? meloxicam (MOBIC) 15 MG tablet Take 15 mg by mouth daily with food (Patient not taking: Reported on 11/16/2021) ??? rosuvastatin (CRESTOR) 10 MG tablet Take 10 mg by mouth at bedtime Allergies: Allergies Allergen Reactions ??? Naproxen GI Discomfort Social History: Social History Tobacco Use ??? Smoking status: Never ??? Smokeless tobacco: Never Substance Use Topics ??? Alcohol use: Yes Alcohol/week: 0.8 standard drinks Types: 1 Cans of beer per week Comment: 2 beers a day Family History: Family History Problem Relation Name Age of Onset ??? Hypertension Mother ??? Cancer - Prostate Father ??? CAD (Coronary Artery Disease) Father Review of Systems For relevant history, please see the HPI Physical Exam Blood pressure 116/84, pulse 65, temperature 98.5 ??F (36.9 ??C), temperature source Oral, resp. rate 18, height 1.727 m (5' 8 ), SpO2 97 %. General: Alert, no obvious distress, non-Marfanoid appearance Head: Normocephalic, no obvious abnormality Eyes: No acute lesions Nose: No drainage or sinus tenderness Mouth: Moist membranes Neck: No JVD, Supple Back: No CVA tenderness Chest Wall: No injury, tenderness or deformity Heart: (Difficult to auscultate in the ED) rapid but regular, no murmur, rub or gallop. No sounds of aortic regurgitation. Lung: No respiratory distress, Equal breath sounds, CTA bilaterally Extremities: No cyanosis, no peripheral edema Pulses: Good radial pulse Abdomen: Soft, non-tender, no pulsatile mass, Rectal: Not indicated Skin: No acute rash Lymph: No lymphadenopathy Neuro: No facial droop, good and equal strength and sensation in all ext. Studies and Interpretation Vital Signs: Blood pressure 116/84, pulse 65, temperature 98.5 ??F (36.9 ??C), temperature source Oral, resp. rate 18, height 1.727 m (5' 8 ), SpO2 97 %. Pulse Oximetry Interpretation: Saturation: 98% Oxygen Delivery: Room Air Interpretation: No hypoxia at this time Rhythm Strip Interpretation (independent interpretation by Barbara Calles MD): Atrial flutter Ventricular Rate: 130 Imaging (pertinent imaging was independently reviewed by Barbara Calles MD): XR CHEST 1VW PORTABLE Result Date: 04/14/2022 IMPRESSION: There is no evidence of active cardiopulmonary disease. > Interpreting Provider: Rohit Maldonado MD on 04/14/2022 1:21 PM Lab: (pertinent labs reviewed by Barbara Calles MD), Significant for: Labs Reviewed COMPREHENSIVE METABOLIC PANEL - Abnormal; Notable for the following components: Result Value Chloride 110 (*) CO2 20 (*) AST 37 (*) All other components within normal limits TROPONIN I - Normal MAGNESIUM BLOOD - Normal CBC W AUTO DIFFERENTIAL TROPONIN I TROPONIN I Cardioversion Procedure Note: Indication: Arrhythmia Consent: Written and verbal consent was obtained. Time out: Per protocol, a time out was made, Energy use: 200 J Number of synchronized cardioversion: 1 Performed by: Andrez Calles MD Preprocedure rhythm: Rapid atrial flutter Post procedure rhythm: Normal sinus rhythm Estimated blood loss: None No specimens removed Procedural Sedation: Consent: The procedure and complications were explained at length to the patient and written consent was obtained. Preformed by: Andrez Calles MD Indication: Rapid atrial flutter Physician Physical Assessment for Sedation and Analgesia Plan Please also see primary exam above, Airway Risks: None Aspiration Risks: None, pt has had reasonable fasting period Adverse reaction to previous anesthesia: No Cardiac: Irregular, no murmur Neuro/Mental Status: alert and oriented Pulmonary: CTA bilaterally Mouth/ENT: No loose teeth ASA Status: ASA 2 - Patient with mild systemic disease with no functional limitations Preoperative Diagnosis: Rapid atrial flutter Technique: The patient underwent procedure sedation using my typical protocol and technique: The ptwas given oxygen, kept on a cardiac and pulse oximetry monitor with serial BP measurements. Typicalairway equipment was bedside and immediately available. Length of Sedation: I supervised the patients sedation for approximately 25 minutes in total, this does not include any time I spent preforming the procedure. Complications: There were no complications and no reversal agents were required. The patient tolerated the sedation well and quickly recovered without incident. Follow up: Typical post procedural sedation instructions were explained to the patient including nodriving, childcare or similar activity for the next 12 hours. Pharmacologic Agents Used: See orders Please see nursing documentation for details. Medical Decision Making Medical Decision Making: Summary: This patient is presenting with symptomatic rapid atrial flutter. He is fully anticoagulated and compliant with his Eliquis. We discussed options including rate control and admission versus cardioversion. He elects for the latter which I think is quite reasonable. He was cardioverted with 200 joules without any difficulty and is doing quite well. He will be discharged with instructions to follow-up with his dining services director. Atrial flutter is nonischemic rhythm and I do not feel there is any indication for serial troponinsas I do not feel that he is having an anginal event. Progress Note(s): 3:11 PM recovering well, currently in sinus rhythm with a rate of 65. Discussed follow-up and return precautions. Discussed no driving today as he has received sedation. is bedside, she will be driving him home. Given my phone number for questions or issues. Condition at disposition: Stable Vital signs prior to disposition: Blood pressure 116/84, pulse 65, temperature 98.5 ??F (36.9 ??C),temperature source Oral, resp. rate 18, height 1.727 m (5' 8 ), SpO2 97 %. Final Diagnosis: 1. Atrial flutter with rapid ventricular response (CMS/HCC) 2. Palpitations Prescriptions and Follow Up New Prescriptions No medications on file I have advised the patient to follow up: Shannon Cordon MD [address] [facility] [address] [facility] [address] Call in 1 day [facility] Emergency Department [address] [facility] [id number] For chest pain, trouble breathing or other concerning symptoms L OPERATOR GIN * Kayley Ferrara RN - 04/14/2022 1:19 PM CST Pt to the ER with c/o palpitations that he states has been going on for the last 24 hours. Pt states that he has a hx of afib, sees [place] and takes blood thinners daily. Pt states he has been SOBon exertion. Admits to feeling more tired than usual. Pt told to come in to the ER by Gerry. Vital signs as charted, breathing even and unlabored. No distress noted. A&Ox4. Pt in position of comfort in stretcher with side rails up x 2. Bed low and locked. Call light within reach. L OPERATOR GIN documented in this encounter Miscellaneous Notes * Clinical References AVS - Andrez Calles MD - 04/14/2022 3:02 PM STILL OPERATOR GIN [id number] Recovery After Procedural Sedation (Adult) You have been given medicine by vein to make you sleep during your procedure. This may have included both a pain medicine and sleeping medicine. Most of the effects have worn off. But you may still have some drowsiness for the next 6 to 8 hours. Home care Follow these guidelines when you get home: ?? For the next 8 hours, you should be watched by a responsible adult. This person should make sureyour condition is not getting worse. ?? Don't drink any alcohol for the next 24 hours. ?? Don't drive, operate dangerous machinery, or make important business or personal decisions during the next 24 hours. Note: Your healthcare provider may tell you not to take any medicine by mouth for pain or sleep in the next 4 hours. These medicines may react with the medicines you were given in the hospital. This could cause a much stronger response than usual. Follow-up care Follow up with your healthcare provider as advised. Also follow up with your provider if you are not alert and back to your usual level of activity within 12 hours. When to seek medical advice Have someone call your healthcare provider right away if any of these occur: ?? Drowsiness gets worse ?? Weakness or dizziness gets worse ?? Repeated vomiting ?? Severe or ongoing pain from the procedure that's not eased by the pain medicine (if prescribed) ?? Fever ?? New rash Call 911 Have someone call 911 if you have any of these: ?? Shortness of breath ?? Chest pain ?? Loss of consciousness or you can't be awakened Last Reviewed Date: 2021 ?? [id number] [employer]. All rights reserved. This information is not intended as a substitute for professional medical care. Always follow your healthcare professional's instructions. L OPERATOR GIN * Clinical References AVS - Andrez Calles MD - 04/14/2022 3:02 PM STILL OPERATOR GIN Images from the original note were not included. [id number] Atrial Flutter Atrial flutter means that your upper heart chambers (atria) are beating very fast. It is caused by a problem in the electrical pathways of the heart muscle. It can be a sign of heart disease or otherhealth problems that affect your heart. Palpitations are the most common symptom of atrial flutter. This is the feeling that your heart is fluttering or beating fast or hard. When your heart beats too fast, it doesn?t pump blood very well.This can cause other symptoms. These include: ?? Anxiety ?? Tiredness (fatigue) ?? Shortness of breath ?? Chest pain ?? Dizziness ?? Fainting Some people have no symptoms while they are in atrial flutter. If this is the first time you?ve had atrial flutter, and you don?t have heart or lung disease, it may never happen again. But in most cases, atrial flutter comes and goes. It can last from a few hours to a couple of days. Sometimes the atrial flutter doesn?t ever go away. This is chronic atrial flutter. Atrial flutter may be caused by heart disease. It may also be caused by other conditions that affect the heart: ?? Coronary artery disease (arteriosclerosis). This is also sometimes called blocked arteries. ?? High blood pressure ?? Disease of the heart valves ?? Enlarged heart ?? Heart failure Atrial flutter can occur without heart disease. This may be because of: ?? Overactive thyroid (hyperthyroid) ?? Chronic lung disease (COPD, emphysema, or bronchitis) ?? Alcohol use ?? Drugs or medicines that stimulate the heart. These include cocaine, amphetamines, diet pills, some decongestant cold medicines, caffeine, and nicotine. ?? Infection ?? Obesity ?? Sleep apnea Treating or removing these causes will make it more likely that treatment for atrial flutter will work. It will also make it less likely that atrial flutter will come back. Atrial flutter can happen along with another heart rhythm problem called atrial fibrillation. The risk for stroke is higher with these conditions. Getting treatment can reduce your risk. Home care Follow these guidelines when caring for yourself at home: ?? Go back to your usual activities as soon as you feel back to normal. ?? If you smoke, stop smoking. Talk with your healthcare provider or call a local stop-smoking program for help. ?? Don?t take drugs or medicines that stimulate your heart. These include cocaine, amphetamines, diet pills, some decongestant cold medicines, caffeine, and nicotine. ?? Your provider may have prescribed medicine to stop atrial flutter from coming back. Take this medicine exactly as directed. Some medicines must be taken every day to work as they should. They aren't taken just when you have symptoms. ?? Your provider may also have prescribed a blood-thinning medicine called warfarin. This lowers your risk for stroke. Have your blood tested regularly as advised by your healthcare provider. This will help make sure the dose is right for you. Other blood thinning medicines don't need regular testing. Follow-up care Follow up with your healthcare provider, or as advised. When to seek medical advice Call your healthcare provider right away if any of these occur: ?? Swelling in either leg ?? Unexpected weight gain Call 911 This is the fastest and safest way to get to the emergency department. The paramedics can also start treatment on the way to the hospital, if needed. Call 911, or seek immediate medical attention, if any of the following occur: ?? Shortness of breath gets worse ?? Feeling lightheaded, faint, or dizzy ?? Bleeding that is not easily controlled ?? A heartbeat that is very rapid, slow, or irregular compared with your normal heartbeat ?? Chest pain or pressure ?? Extreme drowsiness or confusion ?? Weakness of an arm or leg or one side of the face ?? Trouble speaking or seeing Last Reviewed Date: 2018 ?? [id number] [employer]. All rights reserved. This information is not intended as a substitute for professional medical care. Always follow your healthcare professional's instructions. L OPERATOR GIN documented in this encounter Plan of Treatment Upcoming Encounters Date Type Department Care Team (Late st Contact Info) Description 03/22/2024 9:00 AM STILL OPERATOR GIN Office Visit [facility] - Ophthalmology [address] [place] [phone] Ernesto Hawkins MD [facility] [place] [address] documented as of this encounter Procedures Procedure Name Priority Date/Time Associated Diagnosis Comments CARDIAC EKG ORDER 04/15/2022 8:3 8 PM STILL OPERATOR GIN CARDIAC EKG ORDER 04/15/2022 8:3 8 PM STILL OPERATOR GIN XR CHEST 1VW PORTABLE STAT 04/14/2022 1:20 PM STILL OPERATOR GIN Palpitations TROPONIN I STAT 04/14/2022 1:12 PM STILL OPERATOR GIN CBC W AUTO DIFFERENTIAL STAT 04/14/2022 1:12 PM STILL OPERATOR GIN COMPREHENSIVE METABOLIC PANEL STAT 04/14/2022 1:12 PM STILL OPERATOR GIN MAGNESIUM BLOOD STAT 04/14/2022 1:12 PM STILL OPERATOR GIN EKG 12-LEAD STAT 04/14/2022 12:58 PM STILL OPERATOR GIN Palpitations Atrial flutter with rapid ventricular response (HCC) EKG 12-LEAD STAT 04/14/2022 12:55 PM STILL OPERATOR GIN Palpitations documented in this encounter Results * CARDIAC EKG ORDER (04/15/2022 8:38 PM STILL OPERATOR GIN) Narrative 04/15/2022 8:38 PM STILL OPERATOR GIN Ordered by an unspecified provider. Scanned Document CARDIAC SERVICES ORD ERABLES * CARDIAC EKG ORDER (04/15/2022 8:38 PM STILL OPERATOR GIN) Narrative 04/15/2022 8:38 PM STILL OPERATOR GIN Ordered by an unspecified provider. Scanned Document CARDIAC SERVICES ORD ERABLES * XR CHEST 1VW PORTABLE (04/14/2022 1:20 PM STILL OPERATOR GIN) Anatomical Region Laterality Modality Chest Radiographic Aubree ging 04/14/2022 1:21 PM STILL OPERATOR GIN Impressions 04/14/2022 1:21 PM STILL OPERATOR GIN IMPRESSION: There is no evidence of active cardiopulmonary disease. > Interpreting Provider: Rohit Maldonado MD on 04/14/2022 1:21 PM Narrative 04/14/2022 1:21 PM STILL OPERATOR GIN PROCEDURE: ??XR CHEST 1VW PORTABLE, DATE/TIME OF EXAM: ??04/14/2022 1:20 PM, LOCATION ??[facility] INDICATION: R00.2: Palpitations ADDITIONAL CLINICAL INFORMATION: Ordering Provider Reason For Exam: Technologist Note: Additional: COMPARISON: Chest 10/06/2013 FINDINGS: AP portable upright view of the chest demonstrates a normal size heart. There are no infiltrates effusions or vascular congestion. Osseous structures are within normal limits. Procedure Note Rohit Maldonado MD - 04/14/2022 PROCEDURE: XR CHEST 1VW PORTABLE, DATE/TIME OF EXAM: 04/14/2022 1:20PM, LOCATION [facility] INDICATION: R00.2: Palpitations ADDITIONAL CLINICAL INFORMATION: Ordering [...] Calles MD DIAGNOSTIC IMAGIN G ORDERABLES * MAGNESIUM BLOOD (04/14/2022 1:12 PM STILL OPERATOR GIN) Magnesium 2.1 1.6 - 2.6 mg/dL 04/14/2022 1:[address] [facility] Blood BLOOD SPECIMEN / Unknown Venipuncture / Unknown 04/14/2022 1:12 PM STILL OPERATOR GIN 04/14/2022 1:17 PM STILL OPERATOR GIN Andrez Calles MD LAB - CHEMISTRY O RDERABLES [facility] [address] [place] [address] * (ABNORMAL) COMPREHENSIVE METABOLIC PANEL (04/14/2022 1:12 PM STILL OPERATOR GIN) Pathologist [facility] Glucose 91 70 - 105 mg/dL 04/14/2022 1:[address] [facility] Sodium 140 136 - 145 mmol/L 04/14/2022 1:[address] [facility] Potassium 4.5 3.5 - 5.1 mmol/L 04/14/2022 1:[address] [facility] Chloride 110(H) 98 - 107 mmol/L 04/14/2022 1:[address] [facility] CO2 20(L) 23 - 31 mmol/L 04/14/2022 1:[address] [facility] Calcium 8.9 8.4 - 10.4 mg/dL 04/14/2022 1:[address] [facility] Anion Gap 10 8 - 18 mmol/L 04/14/2022 1:[address] [facility] BUN 14 8.4 - 25.7 mg/dL 04/14/2022 1:[address] [facility] Creatinine 0.87 0.72 - 1.25 mg/dL 04/14/2022 1:[address] [facility] Alkaline Phosphatase 63 40 - 150 U/L 04/14/2022 1:[address] [facility] ALT 43 0 - 61 U/L 04/14/2022 1:[address] [facility] AST 37(H) 5 - 34 U/L 04/14/2022 1:[address] [facility] Protein Total 6.6 6.4 - 8.3 gm/dL 04/14/2022 1:[address] [facility] Albumin 4.0 3.2 - 4.6 gm/dL 04/14/2022 1:[address] [facility] Bilirubin Total 0.2 0.2 - 1.2 mg/dL 04/14/2022 1:[address] [facility] eGFR by CKD-EPI >90 >=90 mL/min/1.7 3 m2 04/14/2022 1:[address] [facility] Blood BLOOD SPECIMEN / Unknown Venipuncture / Unknown 04/14/2022 1:12 PM STILL OPERATOR GIN 04/14/2022 1:17 PM STILL OPERATOR GIN Andrez Calles MD LAB - CHEMISTRY O RDERABLES [facility] [address] [place] [address] * CBC W AUTO DIFFERENTIAL (04/14/2022 1:12 PM [facility]) WBC 5.9 4.4 - 10.7 x10E9/L 04/14/2022 1:[address] [facility] WBC Corrected 04/14/2022 1:[address] [facility] RBC 5.29 3.80 - 5.40 x10E12/L 04/14/2022 1:[address] [facility] Hemoglobin 15.9 12.0 - 17.6 gm/dL 04/14/2022 1:[address] [facility] Hematocrit 47.2 35.2 - 51.7 % 04/14/2022 1:[address] [facility] MCV 89.2 80.7 - 98.3 fl 04/14/2022 1:[address] [facility] MCH 30.1 26.7 - 34.0 pg 04/14/2022 1:[address] [facility] MCHC 33.7 30.8 - 35.9 gm/dL 04/14/2022 1:[address] [facility] Platelet Count 282 153 - 416 x10E9/L 04/14/2022 1:[address] [facility] RDW-CV 13.1 12.1 - 14.9 % 04/14/2022 1:19 PM [facility] MPV 9.5 9.4 - 12.9 fl 04/14/2022 1:[address] [facility] Neutrophils % 63.2 44.0 - 73.0 % 04/14/2022 1:[address] [facility] Lymphocytes % 25.8 20.0 - 43.0 % 04/14/2022 1:[address] [facility] Monocytes % 9.3 5.0 - 13.0 % 04/14/2022 1:[address] [facility] Eosinophils % 1.0 0.0 - 6.0 % 04/14/2022 1:[address] [facility] Basophils % 0.7 0.0 - 2.0 % 04/14/2022 1:[address] [facility] Immature Granulocytes 0.0 0 - 1 % 04/14/2022 1:[address] [facility] Neutrophil Absolute 3.75 2.01 - 7.14 x10E9/L 04/14/2022 1:[address] [facility] Lymphocytes Absolute 1.53 1.07 - 3.94 x10E9/L 04/14/2022 1:[address] [facility] Monocytes Absolute 0.55 0.26 - 1.07 x10E9/L 04/14/2022 1:[address] [facility] Eosinophils Absolute 0.06 0 - 0.47 x10E9/L 04/14/2022 1:[address] [facility] Basophils Absolute 0.04 0 - 0.08 x10E9/L 04/14/2022 1:[address] [facility] Immature Granulocytes Absolute 0.00 0.00 - 0.06 x10E9/L 04/14/2022 1:[address] [facility] nRBC Auto 0 /100 WBC 04/14/2022 1:[address] [facility] Blood BLOOD SPECIMEN / Unknown Venipuncture / Unknown 04/14/2022 1:12 PM STILL OPERATOR GIN 04/14/2022 1:17 PM [facility] Andrez Calles MD LAB - HEMATOLOGY ORDERABLES [facility] [address] [facility] [place] [address] * TROPONIN I (04/14/2022 1:12 PM STILL OPERATOR GIN) Troponin I <0.010 <0.038 ng/mL 04/14/2022 1:38 PM STILL OPERATOR GIN [facility] Blood BLOOD SPECIMEN / Unknown Venipuncture / Unknown 04/14/2022 1:12 PM STILL OPERATOR GIN 04/14/2022 1:17 PM STILL OPERATOR GIN Andrez Calles MD LAB - CHEMISTRY O RDERABLES [facility] [address] [place] [address] * EKG 12-LEAD (04/14/2022 12:58 PM STILL OPERATOR GIN) Ventricular Rate 129 BPM [facility] Atrial Rate 129 BPM [facility] P-R Interval 156 ms [facility] QRS Duration ms 104 ms [facility] Q-T Interval ms 276 ms [facility] QTC Calculation (Bezet) 404 ms [facility] Calculated P [place] 91 degrees [facility] Calculated R [place] 114 degrees [facility] Calculated T [place] 53 degrees [facility] Interpretation EKG Probable ??Atrial flutter with 2:1 A-V conduction Right axis deviation Pulmonary disease pattern Nonspecific ST and T wave abnormality Abnormal ECG When compared with ECG of 14-APR-2022 12:55, No significant change was found Confirmed by ARMAAN RUIZ MD ([id number]) on 04/15/2022 2:14:42 PM [facility] 04/14/2022 12:5 8 PM STILL OPERATOR GIN 04/15/2022 2:14 PM STILL OPERATOR GIN Andrez Calles MD ECG ORDERABLES Performing Organization Address [facility]/ZIP Co de Phone Number [facility] * EKG 12-LEAD (04/14/2022 12:55 PM STILL OPERATOR GIN) Ventricular Rate 128 BPM [facility] Atrial Rate 128 BPM [facility] P-R Interval 164 ms [facility] QRS Duration ms 104 ms [facility] Q-T Interval ms 290 ms [facility] QTC Calculation (Bezet) 423 ms [facility] Calculated P [place] 91 degrees [facility] Calculated R [place] 89 degrees [facility] Calculated T [place] 52 degrees [facility] Interpretation EKG Probable ??Atrial flutter with 2:1 A-V conduction Low voltage QRS ST elevation consider inferior injury or acute infarct / pseudoinfarction flutter wave Abnormal ECG Confirmed by ARMAAN RUIZ MD ([id number]) on 04/15/2022 2:14:09 PM [facility] 04/14/2022 12:5 5 PM STILL OPERATOR GIN 04/15/2022 2:14 PM STILL OPERATOR GIN Andrez Calles MD ECG ORDERABLES [facility] documented in this encounter Visit Diagnoses Diagnosis Atrial flutter with rapid ventricular response (HCC)- Primary Atrial flutter Palpitations documented in this encounter Administered Medications Inactive Administered Medications - up to 3 most recent administrations Medication Order MAR Action Action Date Dose Rate Site 0.9% NaCl injection 1-10 mL 1-10 mL, Intracatheter, PRN, Other, peripheral line flush, Starting on 04/14/22 at 1310, Until 04/14/22 at 1621, Flush peripheral IV catheter with 1-10 mL of normal saline before and after medications and prn to clear blood from the line or to verify patency. 0.9% NaCl injection 3 mL 3 mL, Intracatheter, EVERY 8 HOURS, First dose on 04/14/22 at 1400, Until Discontinued, Flush peripheral IV catheter with 3 mL of normal saline every 8 hours. etomidate (Amidate) injection 10 mg 10 mg, Intravenous, NOW, 1 dose, On 04/14/22 at 1400 $ Given 04/14/2022 2:31 PM STILL OPERATOR GIN 10 mg documented in this encounter Active and Recently Administered Medications Times are shown in STILL OPERATOR GIN. Scheduled Medication Order 04/12/2022 04/13/2022 04/14/2022 0.9% NaCl injection 3 mL(Linked Group 1) 3 mL, Intracatheter, EVERY 8 HOURS, First dose on 04/14/22 at 1400, Until Discontinued, Flush peripheral IV catheter with 3 mL of normal saline every 8 hours. 1400 (Due) etomidate (Amidate) injection 10 mg (COMPLETED) 10 mg, Intravenous, NOW, 1 dose, On 04/14/22 at 1400 1431 ($ Given - Prov ider: Tg Godoy RN) PRN Medication Order 04/12/2022 04/13/2022 04/14/2022 0.9% NaCl injection 1-10 mL(Linked Group 1) 1-10 mL, Intracatheter, PRN, Other, peripheral line flush, Starting on 04/14/22 at 1310, Until Fri04/14/22 at 1621, Flush peripheral IV catheter with 1-10 mL of normal saline before and after medications and prn to clear blood from the line or to verify patency. Linked Groups Order Group 1: SALINE LOCK, INSERT AND MAINTAIN (CANCELED) Routine, CONTINUOUS, Starting on 04/14/22 at 1315, Until Specified, New collection, Task Completed: Yes And 0.9% NaCl injection 3 mLJump to med 3 mL, Intracatheter, EVERY 8 HOURS, First dose on 04/14/22 at 1400, Until Discontinued, Flush peripheral IV catheter with 3 mL of normal saline every 8 hours. And 0.9% NaCl injection 1-10 mLJump to med 1-10 mL, Intracatheter, PRN, Other, peripheral line flush, Starting on 04/14/22 at 1310, Until 04/14/22 at 1621, Flush peripheral IV catheter with 1-10 mL of normal saline before and after medications and prn to clear blood from the line or to verify patency. documented in this encounter Care Teams Culinary Assistant Relationship Specialty Start Date End Date Elias Mayorga MD [address] [place] [address] PCP - General Internal Medicine 09/07/14 Elias Mayorga MD [address] [place] [address] PCP - Attributed-Well[employer] EHP STL 08/25/19 08/12/22 Stephanie Prasad RN [address] [facility] [address] [place] [address] Skating Carhop 10/06/13 Lan Bragg DO [address] [facility] [address] [place] [address] Orthopedic Surgery 06/02/14 documented as of this encounter
--- OUTSIDE RECORDS SUMMARY | 2024-03-07 21:56 | XMS_ITS | Encounter Summary ---
Author Organization [facility] Address [address] [facility] [place] [address] Care Team Providers Care Coffee Attendant Name Role Phone Stephanie Prasad RN Unavailable [phone] Lan Bragg DO Unavailable Elias Mayorga MD Primary Care Provider Encounter Details Date Type Department Care Team (Latest Contact Info) Description 09/20/2016 8:00 AM CDT Clinical Support [facility] [address] [place] [id number] PAF (paroxysmal atrial fibrillation) (HCC) ; Status post placement of implantable [...] Progress Notes * Shannon Cordon MD - 09/23/2016 6:37 PM CDT ATTESTATION I have reviewed the device interrogation report associated with this encounter in detail. I agree with the documentation recorded/scanned into the electronic system. Device function is normal. Continue routine device follow-up. Shannon Cordon M.D. Cardiac Eyewear Consultant [facility] [place] [phone] (office) * Roxanna Kim RN - 09/23/2016 12:16 PM CDT Remote Carelink (Aptana) download for Linq ILR. The supporting device data is scanned under the Cardiac Tab for this DOS, by signing off of this encounter the doctor is acknowledging review of this data. documented in this encounter Plan of Treatment Upcoming Encounters Date Type Department Care Team (Late st Contact Info) Description 03/22/2024 9:00 AM PRODUCTION HONING MACHINE OPERATOR Office Visit [facility] - Ophthalmology [address] [place] [phone] Ernesto Hawkins MD [facility] [place] [address] documented as of this encounter Procedures Procedure Name Priority Date/Time Associated Diagnosis Comments ILR CLINIC CHECK Routine 09/23/2016 12:17 PM CDT PAF (paroxysmal atrial fibrillation) (HCC) Status post placement of implantable loop recorder documented in this encounter Results * ILR CLINIC CHECK (09/23/2016 12:17 PM CDT) Shannon Cordon MD CARDIAC SERVICES ORDERABLES documented in this encounter Visit Diagnoses Diagnosis PAF (paroxysmal atrial fibrillation) (HCC)- Primary Atrial fibrillation Status post placement of implantable loop recorder documented in this encounter Care Teams Coffee Attendant Relationship Specialty Start Date End Date Elias Mayorga MD [address] [facility] [address] [place] [address] PCP - General Internal Medicine 09/07/14 Stephanie Prasad RN [address] [place] [address] Environmental Health Specialist 10/06/13 Lan Bragg DO [address] [facility] [address] [place] [address] Orthopedic Surgery 06/02/14 documented as of this encounter
--- OUTSIDE RECORDS SUMMARY | 2024-03-07 21:56 | XMS_ITS | Encounter Summary ---
Author Organization [facility] Address [address] [facility] [place] [address] Care Team Providers Care Instructor Knitting Name Role Phone Stephanie Prasad RN Unavailable [phone] Lan Bragg DO Unavailable Elias Mayorga MD Primary Care Provider [phone] Reason for Visit * Reason Comments Implantable Device Follow-Up Carelink Encounter Details Date Type Department Care Team (Latest Contact Info) Description 09/11/2015 10:30 AM CDT Procedure visit [facility] [address] [place] [address] Premature atrial contractions ; Status post placement of implantable loop [...] Progress Notes * Shannon Cordon MD - 10/14/2015 4:38 PM CDT ATTESTATION I have reviewed the device interrogation report. I agree with the documentation with no additions. Shannon Cordon M.D. Cardiac Creping Machine Operator [facility] Heart [place] [phone] (office) [phone] (pager) * Molly Lozoya - 09/12/2015 12:49 PM CDT Patient's Linq recorder was interrogated via home monitor with Medtronic. Interrogation was reviewed by Dr Jn Cordon MD . Without anomalies detected. documented in this encounter Plan of Treatment Upcoming Encounters Date Type Department Care Team (Late st Contact Info) Description 03/22/2024 9:00 AM ROCK SINGER Office Visit [facility] - Ophthalmology [address] [place] [phone] Ernesto Hawkins MD [address] [place] [phone] documented as of this encounter Procedures Procedure Name Priority Date/Time Associated Diagnosis Comments ILR DEVICE INTERROGATION Routine 09/12/2015 Premature atrial contractions Status post placement of implantable loop recorder documented in this encounter Results * ILR DEVICE INTERROGATION (09/12/2015) Shannon Cordon MD CARDIAC SERVICES ORDERABLES NONSSM RESULT SCAN documented in this encounter Visit Diagnoses Diagnosis Premature atrial contractions- Primary Supraventricular premature beats Status post placement of implantable loop recorder documented in this encounter Care Teams Instructor Knitting Relationship Specialty Start Date End Date Elias Mayorga MD [address] [place] [address] [address] [place] [address] PCP - General Internal Medicine 09/07/14 Stephanie Prasad RN [address] [place] [address] Physical Therapist Assistant 10/06/13 Lan Bragg DO [address] [place] [address] Orthopedic Surgery 06/02/14 documented as of this encounter
--- OUTSIDE RECORDS SUMMARY | 2024-03-07 21:56 | XMS_ITS | Encounter Summary ---
Author Organization [facility] Address [address] [facility] [place] [address] Care Team Providers Care Armored Car Guard Name Role Phone Stephanie Prasad RN Unavailable [phone] Lan Bragg DO Unavailable Elias Mayorga MD Primary Care Provider [phone] Encounter Details Date Type Department Care Team (Latest Contact Info) Description 05/11/2019 Travel Social History Tobacco Use Types Packs/Day [...] st Contact Info) Description 03/22/2024 9:00 AM STRATEGIC PROCUREMENT MANAGER Office Visit [facility] - Ophthalmology [address] [place] [phone] Ernesto Hawkins MD [address] [place] [phone] documented as of this encounter Visit Diagnoses Not on filedocumented in this encounter Care Teams Armored Car Guard Relationship Specialty Start Date End Date Elias Mayorga MD [address] [facility] [address] [place] [address] PCP - General Internal Medicine 09/07/14 Stephanie Prasad RN [address] [facility] [address] [place] [address] Tube Puller 10/06/13 Lan Bragg DO [address] [facility] [address] [place] [address] Orthopedic Surgery 06/02/14 documented as of this encounter
--- OUTSIDE RECORDS SUMMARY | 2024-03-07 21:56 | XMS_ITS | Encounter Summary ---
Author Organization [facility] Address [address] [place] [address] Care Team Providers Care Gambling Cashier Name Role Phone Stephanie Prasad RN Unavailable [phone] Lan Bragg DO Unavailable Elias Mayorga MD Primary Care Provider [phone] Reason for Referral * Cardiac (Routine) - Closed Specialty Diagnoses / Procedures Referred By Rosa t Referred To Contact Cardiology Diagnoses Palpitations Procedures ECHOCARDIOGRAM 2D WITH DOPPLER Shannon Valadez MD [address] [place] [address] Referral ID Status Reason Start Date Expiration Date Visits Re quested Visits Authorized [id number] Closed 11/30/2018 05/29/2019 1 1 Encounter Details Date Type Department Care Team (Late st Contact Info) Description 11/30/2018 Orders Only [facility] Heart & Vascular Care [address], [address] [place] [address] Shannon Valadez MD [address] [place], [place] [phone] Palpitations Social History Tobacco Use Types Packs/Day [...] st Contact Info) Description 03/22/2024 9:00 AM TREATING ENGINEER Office Visit [facility] - Ophthalmology [address] [place] [phone] Ernesto Hawkins MD [address] [place] [phone] documented as of this encounter Results * ECHOCARDIOGRAM 2D WITH DOPPLER (11/30/2018 3:09 PM CDT) 11/30/2018 3:09 PM CDT Narrative [facility] - 12/02/2018 1:20 PM CDT [facility] Heart [place] [address] [place] [address] Transthoracic Echocardiogram 2D, M-mode, Doppler, and Color Doppler Patient: SERG CAMARA MR number: [id number] Height: 69 in Weight: 187.7 lb BSA: 2.01 m?? Study date: 30-Nov-2018 : 1960 Age: 58 years Gender: Male Race: 2 Allergies: NAPROXEN REFERRING PHYSICIAN: ??SHANNON VALADEZ TRASH MAN: ??Inderjit DICKSON MOUNTER HAND: ??Ronnie Dorado MD Summary: - ??Clinical question: [...] Procedure: The study was performed in the [facility]. This was a routine study. STRAIN RATE [...] Procedure Note Ronnie Dorado MD - 12/02/2018 [facility] Heart [place] [address] [place] [address] Transthoracic Echocardiogram 2D, M-mode, Doppler, and Color Doppler Patient: SERG CAMARA MR number: [id number] Height: 69 in Weight: 187.7 lb BSA: 2.01 m?? Study date: 30-Nov-2018 : 1960 Age: 58 years Gender: Male Race: 2 Allergies: NAPROXEN REFERRING PHYSICIAN: SHANNON VALADEZ TRASH MAN: Inderjit Ro READING MOUNTER HAND: Ronnie Dorado MD Summary: - Clinical question: [...] Procedure: The study was performed in the [facility]. This was a routine study. STRAIN RATE [...] 02-Dec-2018 13:16:38 Shannon Valadez MD ECHO ORDERABLES Performing Organization Address City/State/[facility] Co de Phone Number [facility] documented in this encounter Visit Diagnoses Diagnosis Palpitations Palpitations- Primary documented in this encounter Care Teams Gambling Cashier Relationship Specialty Start Date End Date Elias Mayorga MD [address] [facility] [place] [address] PCP - General Internal Medicine 09/07/14 Stephanie Prasad RN [address] [place] [address] Pyrotechnist 10/06/13 Lan Bragg DO [address] [facility] [place] [address] Orthopedic Surgery 06/02/14 documented as of this encounter
--- OUTSIDE RECORDS SUMMARY | 2024-03-07 21:56 | XMS_ITS | Encounter Summary ---
Author Organization [facility] Address [address] [facility] [facility] [place] [address] Care Team Providers Care Tacking Machine Operator Name Role Phone Stephanie Prasad RN Unavailable [phone] Lan Bragg DO Unavailable Elias Mayorga MD Primary Care Provider [phone] Elias Mayorga MD Unavailable [phone] Reason for Referral * Cardiac (Routine) - Closed Specialty Diagnoses / Procedures Referred By Rosa espinosa Referred To Contact Diagnoses Palpitations Procedures EVENT MONITOR Shannon Cordon MD [address] [facility] [address] [place] [address] Referral ID Status Reason Start Date Expiration Date Visits Re quested Visits Authorized [id number] Closed 10/16/2020 10/16/2021 1 1 Encounter Details Date Type Department Care Team (Late st Contact Info) Description 10/16/2020 Orders Only [facility] Heart [facility] Vascular Care [address] [place] [address] Shannon Cordon MD [address] [facility] [address] [place] [address] Palpitations Social History Tobacco Use Types Packs/Day [...] st Contact Info) Description 03/22/2024 9:00 AM SHEET METAL TECHNICIAN Office Visit [facility] - Ophthalmology [address] [place] [address] Ernesto Hawkins MD [address] [place] [phone] documented as of this encounter Results * EVENT MONITOR (10/19/2020) 10/19/2020 Narrative 10/19/2020 Shannon Cordon MD ? 10/31/2020 ??6:34 AM [facility] CARDIAC EVENT MONITOR ?? Pts name: Kenji Camara : 1960 Ordering [...] Cordon MD - 10/27/2020 12:13 PM CDT [facility] CARDIAC EVENT MONITOR [...] this encounter Visit Diagnoses Diagnosis Palpitations- Primary Palpitations- Primary documented in this encounter Care Teams Tacking Machine Operator Relationship Specialty Start Date End Date Elias Mayorga MD [address] [place] [address] PCP - General Internal Medicine 09/07/14 Elias Mayorga MD [address] [place] [address] PCP - Attributed-[facility] EHP STL 08/25/19 08/12/22 Stephanie Prasad RN [address] [facility] [address] [place] [address] Deputy Clerk 10/06/13 Lan Bragg DO [address] [facility] [address] [place] [address] Orthopedic Surgery 06/02/14 documented as of this encounter
--- OUTSIDE RECORDS SUMMARY | 2024-03-07 21:56 | XMS_ITS | Encounter Summary ---
Author Organization [facility] Address [address] [place] [address] Care Team Providers Care Director Of Radio Services Name Role Phone Stephanie Prasad RN Unavailable [phone] Lan Bragg DO Unavailable Elias Mayorga MD Primary Care Provider Elias Mayorga MD Unavailable [phone] Reason for Visit * Reason Comments Pain Head Encounter Details Date Type Department Care Team (Late st Contact Info) Description 10/14/2020 6:11 AM CDT - 10/14/2020 9:48 AM CDT Emergency ER at [address] [address] Parish Kim MD [address] [place] [id number] Acute nonintractable headache, unspecified headache type Discharge Disposition: Home or Self Care Social [...] Sign Reading Time Taken Comments Blood Pressure 123/69 10/14/2020 9:30 AM CDT Pulse 51 10/14/2020 9:30 AM CDT Temperature 36.5 ??C (97.7 ??F) 10/14/2020 6:08 AM CD T Respiratory Rate 14 10/14/2020 9:30 AM CDT Oxygen Saturation 99% 10/14/2020 9:30 AM CDT Inhaled Oxygen Concentration - - Weight 81.6 kg (180 lb) 10/14/2020 6:08 AM CDT Height 172.7 cm (5' 8 ) 10/14/2020 6:08 AM CDT Body Mass Index 27.37 10/14/2020 6:08 AM CDT documented in this encounter Functional [...] this encounter Discharge Instructions * Discharge Instructions* Parish Kim MD - 10/14/2020 9:[address] ANGIO BRAIN AND NECK Final Result CT angiography neck CT angiography head CT [...] basilar artery, and branch vessels of the [place] are widely patent without evidence of vessel stenosis or vessel occlusion. There is absence or atrophy of the left A1 segment. The distal bilateral anterior cerebral arteries are unremarkable. No intracranial aneurysms are identified. There are no gross arterio-venous malformations. Impression: Unremarkable brain CTA *Reading Radiologist: Parish Egan on 10/14/2020 at 8:[address] HEAD NON CONTRAST - intracranial hemorrhage Final Result CT BRAIN NONCONTRAST CLINICAL INDICATION: Severe headaches. [...] Parish Egan on 10/14/2020 at 8:10 AM Acute Headache WHAT YOU NEED TO KNOW: An acute headache is pain or discomfort that starts suddenly and gets worse quickly. You may have an acute headache only when you feel stress or eat certain foods. Other acute headache pain can happen every day, and sometimes several times a day. DISCHARGE INSTRUCTIONS: Return to the emergency department if: You have severe pain. You have numbness or weakness on one side of your face or body. You have a headache that occurs after a blow to the head, a fall, or other trauma. You have a headache, are forgetful or confused, or have trouble speaking. You have a headache, stiff neck, and a fever. Contact your healthcare provider if: You have a constant headache and are vomiting. You have a headache each day that does not get better, even after treatment. You have changes in your headaches, or new symptoms that occur when you have a headache. You have questions or concerns about your condition or care. Medicines: You may need any of the following: Prescription pain medicine may be given. The medicine your healthcare provider recommends will depend on the kind of headaches you have. You will need to take prescription headache medicines as directed to prevent a problem called rebound headache. These headaches happen with regular use of pain relievers for headache disorders. NSAIDs , such as ibuprofen, help decrease swelling, pain, and fever. This medicine is available with or without a doctor's order. NSAIDs can cause stomach bleeding or kidney problems in certain people. If you take blood thinner medicine, always ask your healthcare provider if NSAIDs are safe for you. Always read the medicine label and follow directions. Acetaminophen decreases pain and fever. It is available without a doctor's order. Ask how much to take and how often to take it. Follow directions. Read the labels of all other medicines you are using to see if they also contain acetaminophen, or ask your doctor or pharmacist. Acetaminophen can cause liver damage if not taken correctly. Do not use more than 3 grams (3,000 milligrams) total of acetaminophen in one day. Antidepressants may be given for some kinds of headaches. Take your medicine as directed. Contact your healthcare provider if you think your medicine is not helping or if you have side effects. Tell him or her if you are allergic to any medicine. Keep a list of the medicines, vitamins, and herbs you take. Include the amounts, and when and why you take them. Bring the list or the pill bottles to follow-up visits. Carry your medicine list with you in case of an emergency. Manage your symptoms: Apply heat or ice on the headache area. Use a heat or ice pack. For an ice pack, you can also put crushed ice in a plastic bag. Cover the pack or bag with a towel before you apply it to your skin. Ice and heat both help decrease pain, and heat also helps decrease muscle spasms. Apply heat for 20 to30 minutes every 2 hours. Apply ice for 15 to 20 minutes every hour. Apply heat or ice for as long and for as many days as directed. You may alternate heat and ice. Relax your muscles. Lie down in a comfortable position and close your eyes. Relax your muscles slowly. Start at your toes and work your way up your body. Keep a record of your headaches. Write down when your headaches start and stop. Include your symptoms and what you were doing when the headache began. Record what you ate or drank for 24 hours beforethe headache started. Describe the pain and where it hurts. Keep track of what you did to treat your headache and if it worked. Prevent an acute headache: Avoid anything that triggers an acute headache. Examples include exposure to chemicals, going to high altitude, or not getting enough sleep. Create a regular sleep routine. Go to sleep at the same time and wake up at the same time each day. Do not use electronic devices before bedtime. These may trigger a headache or prevent you from sleeping well. Do not smoke. Nicotine and other chemicals in cigarettes and cigars can trigger an acute headache or make it worse. Ask your healthcare provider for information if you currently smoke and need help to quit. E-cigarettes or smokeless tobacco still contain nicotine. Talk to your healthcare provider before you use these products. Limit alcohol as directed. Alcohol can trigger an acute headache or make it worse. If you have cluster headaches, do not drink alcohol during an episode. For other types of headaches, ask your healthcare provider if it is safe for you to drink alcohol. Ask how much is safe for you to drink, and howoften. Exercise as directed. Exercise can reduce tension and help with headache pain. Aim for 30 minutes of physical activity on most days of the week. Your healthcare provider can help you create an exercise plan. Eat a variety of healthy foods. Healthy foods include fruits, vegetables, low- fat dairy products, lean meats, fish, whole grains, and cooked beans. Your healthcare provider or dietitian can help you create meals plans if you need to avoid foods that trigger headaches. Follow up with your healthcare provider as directed: Bring your headache record with you when you see your healthcare provider. Write down your questions so you remember to ask them during your visits. ?? Copyright [employer] 2020 Information is for End User's use only and may not be sold, redistributed or otherwise used for commercial purposes. All illustrations and images included in CareNotes?? are the copyrighted property of [employer]. or [employer] The above information is an braided band assembler only. It is not intended as medical advice for individual conditions or treatments. Talk to your doctor, nurse or pharmacist before following any medical regimen to see if it is safe and effective for you. [place] Instructions (Home Quarantine for COVID-19) Interim Guidance for Preventing the Spread of Coronavirus Disease 2019 (COVID- 19) in Homes and Residential Communities Update: April 09, 2019 - Source [facility] (This guidance provides clarification regarding evaluation for home isolation and a new section with information regarding preventative steps for household members, intimate partners, and caregivers in a nonhealthcare setting of a person with symptomatic, laboratory-confirmed COVID-19.) This interim guidance is based on what is currently known about the epidemiology of COVID-19 and the transmission of other viral respiratory diseases. [facility] will update this interim guidance as needed and as additional information becomes available. Coronaviruses are a large family of viruses, some causing illness in people and others that circulate among animals, including camels, cats, and bats. Rarely, animal coronaviruses can infect people exposed to infected animals, and then spread among people, as has been seen with MERS-CoV and SARS-CoV, and likely now with SARS-CoV-2, the virus that causes COVID-19. This interim guidance may help prevent this virus from spreading among people in their homes and in other residential communities. This interim guidance is intended for: People with confirmed or suspected COVID-19, including persons under investigation, who do not needto be hospitalized and who can receive care at home (see Interim Guidance for Implementing Home Care of People Not Requiring Hospitalization for Coronavirus Disease 2019 (COVID-19)); People with confirmed COVID-19, who were hospitalized and then determined to be medically stable [facility] home (see Interim Guidance for Implementing Home Care of People Not Requiring Hospitalization for Coronavirus Disease 2019 (COVID-19)); Household members, intimate partners, and caregivers in a nonhealthcare setting of a person with symptomatic, laboratory-confirmed COVID-19. Prevention steps for People with confirmed or suspected COVID-19 (including persons under investigation) who do not needto be hospitalized and People with confirmed COVID-19 who were hospitalized and determined to be medically stable to go home Your healthcare provider and public health staff will evaluate whether you can be cared for at home. If it is determined that you do not need to be hospitalized and can be isolated at home, you will be monitored by staff from your local or state health department. You should follow the prevention steps below until a healthcare provider or local or state health department says you can return to your normal activities. Stay home except to get medical care You should restrict activities outside your home, except for getting medical care. Do not go to work, school, or public areas. Avoid using public transportation, ride-sharing, or taxis. Separate yourself from other people and animals in your home People: As much as possible, you should stay in a specific room and away from other people in your home. Also, you should use a separate bathroom, if available. Animals: You should restrict contact with pets and other animals while you are sick with COVID-19, just like you would around other people. Although there have not been reports of pets or other animals becoming sick with COVID-19, it is still recommended that people sick with COVID-19 limit contactwith animals until more information is known about the virus. When possible, have another member of your household care for your animals while you are sick. If you are sick with COVID-19, avoid contact with your pet, including petting, snuggling, being kissed or licked, and sharing food. If you must care for your pet or be around animals while you are sick, wash your hands before and after you interact with pets and wear a facemask. See COVID-19 and Animals for more information. Call ahead before visiting your doctor If you have a medical appointment, call the healthcare provider and tell them that you have or may have COVID-19. This will help the healthcare provider???s office take steps to keep other people from getting infected or exposed. Wear a facemask You should wear a facemask when you are around other people (e.g., sharing a room or vehicle) or pets and before you enter a healthcare provider???s office. If you are not able to wear a facemask (for example, because it causes trouble breathing), then people who live with you should not stay in the same room with you, or they should wear a facemask if they enter your room. Cover your mouth when you cough or sneeze Cover your mouth and nose with a tissue when you cough or sneeze. Throw used tissues in a lined trash can; immediately wash your hands with soap and water for at least 20 seconds or clean your hands with an alcohol-based hand purchasing administrator that contains 60 to 95% alcohol, covering all surfaces of your hands and rubbing them together until they feel dry. Soap and water should be used preferentially ifhands are visibly dirty. Clean your hands often Wash your hands often with soap and water for at least 20 seconds or clean your hands with an alcohol-based hand purchasing administrator that contains 60 to 95% alcohol, covering all surfaces of your hands and rubbing them together until they feel dry. Soap and water should be used preferentially if hands are visibly dirty. Avoid touching your eyes, nose, and mouth with unwashed hands. Avoid sharing personal household items You should not share dishes, drinking glasses, cups, eating utensils, towels, or bedding with otherpeople or pets in your home. After using these items, they should be washed thoroughly with soap and water. Clean all ???high-touch?? surfaces everyday High touch surfaces include counters, tabletops, doorknobs, bathroom fixtures, toilets, phones, keyboards, tablets, and bedside tables. Also, clean any surfaces that may have blood, stool, or body fluids on them. Use a household cleaning spray or wipe, according to the label instructions. Labels contain instructions for safe and effective use of the cleaning product including precautions you should take when applying the product, such as wearing gloves and making sure you have good ventilation during use of the product. Monitor your symptoms Seek prompt medical attention if your illness is worsening (e.g., difficulty breathing). Before seeking care, call your healthcare provider and tell them that you have, or are being evaluated for, COVID-19. Put on a facemask before you enter the facility. These steps will help the healthcare provider???s office to keep other people in the office or waiting room from getting infected or exposed. Ask your healthcare provider to call the local or [facility] health department. Persons who are placed under active monitoring or facilitated self- monitoring should follow instructions provided by their local health department or occupational health professionals, as appropriate. If you have a medical emergency and need to call 911, notify the dispatch personnel that you have, or are being evaluated for COVID-19. If possible, put on a facemask before emergency medical services arrive. Discontinuing home isolation Patients with confirmed COVID-19 should remain under home isolation precautions until the risk of secondary transmission to others is thought to be low. The decision to discontinue home isolation precautions should be made on a [id number] basis, in consultation with healthcare providers and [facility] health departments. Recommended precautions for household members, intimate partners, and caregivers in a nonhealthcaresetting1 of A patient with symptomatic laboratory-confirmed COVID-19 or A patient under investigation Household members, intimate partners, and caregivers in a nonhealthcare setting may have close contact2 with a person with symptomatic, laboratory-confirmed COVID-19 or a person under investigation. Close contacts should monitor their health; they should call their healthcare provider right away ifthey develop symptoms suggestive of COVID-19 (e.g., fever, cough, shortness of breath) (see Interim[place] Guidance for Risk Assessment and Public Health Management of Persons with Potential Coronavirus Disease 2019 (COVID-19) Exposure in Travel-associated or Community Settings.) Close contacts should also follow these recommendations: Make sure that you understand and can help the patient follow their healthcare provider???s instructions for medication(s) and care. You should help the patient with basic needs in the home and provide support for getting groceries, prescriptions, and other personal needs. Monitor the patient???s symptoms. If the patient is getting sicker, call his or her healthcare provider and tell them that the patient has laboratory-confirmed COVID-19. This will help the healthcareprovider???s office take steps to keep other people in the office or waiting room from getting infected. Ask the healthcare provider to call the local or state health department for additional guidance. If the patient has a medical emergency and you need to call 911, notify the dispatch personnel that the patient has, or is being evaluated for COVID-19. Household members should stay in another room or be from the patient as much as possible.Household members should use a separate bedroom and bathroom, if available. Prohibit visitors who do not have an essential need to be in the home. Household members should care for any pets in the home. Do not handle pets or other animals while sick. For more information, see COVID-19 and Animals. Make sure that shared spaces in the home have good air flow, such as by an air conditioner or an opened window, weather permitting. Perform hand hygiene frequently. Wash your hands often with soap and water for at least 20 seconds or use an alcohol-based hand purchasing administrator that contains 60 to 95% alcohol, covering all surfaces of your hands and rubbing them together until they feel dry. Soap and water should be used preferentially if hands are visibly dirty. Avoid touching your eyes, nose, and mouth with unwashed hands. You and the patient should wear a facemask if you are in the same room. Wear a disposable facemask and gloves when you touch or have contact with the patient???s blood, stool, or body fluids, such as saliva, sputum, nasal mucus, vomit, urine. Throw out disposable facemasks and gloves after using them. Do not reuse. When removing personal protective equipment, first remove and dispose of gloves. Then, immediately clean your hands with soap and water or alcohol-based hand purchasing administrator. Next, remove and dispose of facemask, and immediately clean your hands again with soap and water or alcohol-based hand purchasing administrator. Avoid sharing household items with the patient. You should not share dishes, drinking glasses, cups, eating utensils, towels, bedding, or other items. After the patient uses these items, you should wash them thoroughly (see below ???Wash laundry thoroughly?? ). Clean all ???high-touch?? surfaces, such as counters, tabletops, doorknobs, bathroom fixtures, toilets, phones, keyboards, tablets, and bedside tables, every day. Also, clean any surfaces that may have blood, stool, or body fluids on them. Use a household cleaning spray or wipe, according to the label instructions. Labels contain instructions for safe and effective use of the cleaning product including precautions you should take when applying the product, such as wearing gloves and making sure you have good ventilation during use ofthe product. Wash laundry thoroughly. Immediately remove and wash clothes or bedding that have blood, stool, or body fluids on them. Wear disposable gloves while handling soiled items and keep soiled items away from your body. Cleanyour hands (with soap and water or an alcohol-based hand purchasing administrator) immediately after removing yourgloves. Read and follow directions on labels of laundry or clothing items and detergent. In general, using a normal laundry detergent according to washing machine instructions and dry thoroughly using the warmest temperatures recommended on the clothing label. Place all used disposable gloves, facemasks, and other contaminated items in a lined container before disposing of them with other household waste. Clean your hands (with soap and water or an alcohol-based hand purchasing administrator) immediately after handling these items. Soap and water should be used preferentially if hands are visibly dirty. Discuss any additional questions with your state or local health department or healthcare provider. Footnotes 1Home healthcare personnel should refer to Interim Infection Prevention and Control Recommendationsfor Patients with Known or Patients Under Investigation for Coronavirus Disease 2019 (COVID-19) in a Healthcare Setting. 2Close contact is defined as-- a) being within approximately 6 feet (2 meters) of a COVID-19 case for a prolonged period of time; close contact can occur while caring for, living with, visiting, or sharing a health care waiting area or room with a COVID-19 case - or - b) having direct contact with infectious secretions of a COVID-19 case (e.g., being coughed on). documented in this encounter Medications at Time of Discharge Medication Sig Dispensed Refills Start Date End Date B Complex Vitamins (VITAMIN B COMPLEX PO) rosuvastatin (CRESTOR) 10 MG tablet Take 1 (one) tablet by mouth at bedtime aspirin EC (ECOTRIN) 325 MG tabletIndications:Ty pical atrial flutter (HCC),Paroxysmal atrial fibrillation (HCC) Take 325 mg by mouth once daily 10/16/2020 escitalopram (LEXAPRO) 5 MG tablet Take 1 (one) tablet by mouth once daily 05/09/2020 01/30/2024 flecainide (TAMBOCOR) 100 MG tablet TAKE 1 TABLET BY MOUTH TWICE DAILY 180 tablet 05/29/2018 09/20/2022 hydrocortisone (ANUSOL-HC) 25 MG suppository Insert 1 suppository into the rectum 2 times daily as needed for Hemorrhoids 15 suppository 07/26/2017 01/17/2021 meloxicam (MOBIC) 15 MG tablet Take 1 (one) tablet by mouth daily with food 06/07/2020 01/30/2024 documented as of this encounter ED Notes * Parish Kim MD - 10/14/2020 6:21 AM CDT [facility] [id number] EMERGENCY DEPARTMENT History Chief Complaint Patient presents with ??? Pain Head HPI History of AFib status post ablation who presents with headache. Patient states he has had more frequent headaches over the last week. Has been staining is floor polyurethane some thought maybe that was the cause although he notes the area was fairly well ventilated and was wearing a respirator. This morning at 3:00 a.m., woke up with severe headache. Patient thinks headache woke up from sleep. He was also diaphoretic and nauseous with some vomiting at that time. Also thought that maybe had some mild shortness of breath but does not currently have any shortness of breath or chest pain. Does not frequently get headaches. Does state that he thinks he had migraines many years ago but has not had 1 in a while.. Did have a recent covered exposure but is vaccinated. No abdominal pain. No focal numbness or weakness. Takes full-strength aspirin but no other anticoagulation. Also has chronic neck pain with states has been more severe recently. Describes the headache is 8/10 severity, posteriorhead with some radiation to his neck Past Medical History: Diagnosis Date ??? Afib [...] ??? 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 Cordon. [employer]. Successful and uncomplicated ILR implantation. ??? Shoulder Arthroscopy Family History Problem Relation Name Age of Onset ??? Hypertension Mother ??? Cancer - Prostate Father ??? CAD (Coronary Artery Disease) Father Social History Socioeconomic History ??? Marital status: Spouse name: Not on file ??? Number of children: Not on file ??? Years of education: Not on file ??? Highest education level: Not on file Occupational History ??? Not on file Tobacco Use ??? Smoking status: Never Smoker ??? Smokeless tobacco: Never Used Substance and Sexual Activity ??? Alcohol use: Yes Alcohol/week: 0.8 standard drinks Types: 1 Cans of beer per week Comment: 2 beers a day ??? Drug use: No ??? Sexual activity: Not on file Other Topics Concern ??? Special Diet No Social History Narrative ??? Not on file Social Determinants of Health Financial Resource Strain: ??? Difficulty of Paying Living Expenses: Food Insecurity: ??? Worried About Running Out of Food in the Last Year: ??? Ran Out of Food in the Last Year: Transportation Needs: ??? Lack of Transportation (Medical): ??? Lack of Transportation (Non-Medical): Physical Activity: ??? Days of Exercise per Week: ??? Minutes of Exercise per Session: Stress: ??? Feeling of Stress : Social Connections: ??? Frequency of Communication with Friends and Family: ??? Frequency of Social Gatherings with Friends and Family: ??? Attends Yazidi Services: ??? Active Member of Clubs or Organizations: ??? Attends Club or Organization Meetings: ??? Marital Status: Intimate Partner Violence: ??? Fear of Current or Ex-Partner: ??? Emotionally Abused: ??? Physically Abused: ??? Sexually Abused: Review of Systems Review of Systems Constitutional: Positive for diaphoresis. Negative for chills and fever. HENT: Negative for ear discharge and ear pain. Eyes: Negative for pain and discharge. Respiratory: Positive for shortness of breath. Negative for cough. Cardiovascular: Negative for chest pain and leg swelling. Gastrointestinal: Positive for nausea and vomiting. Negative for abdominal pain. Musculoskeletal: Negative for back pain and neck pain. Skin: Negative for itching and rash. Neurological: Positive for headaches. Negative for tremors. Psychiatric/Behavioral: Negative for hallucinations and suicidal ideas. Physical Exam BP 149/93 Pulse 59 Temp 97.7 ??F (36.5 ??C) (Oral) Resp 20 Ht 1.727 m (5' 8 ) Wt 81.6 kg (180 lb) SpO2 99% BMI 27.37 kg/m?? Physical Exam Constitutional: General: He is not in acute distress. Appearance: He is not toxic-appearing. HENT: Head: Normocephalic and atraumatic. Cardiovascular: Rate and Rhythm: Normal rate and regular rhythm. Heart sounds: No murmur heard. Pulmonary: Effort: Pulmonary effort is normal. No respiratory distress. Breath sounds: No wheezing. Abdominal: General: Abdomen is flat. There is no distension. Tenderness: There is no abdominal tenderness. There is no right CVA tenderness, left CVA tendernessor guarding. Musculoskeletal: Cervical back: Normal range of motion. No rigidity. Skin: General: Skin is warm and dry. Neurological: General: No focal deficit present. Mental Status: He is alert and oriented to person, place, and time. Cranial Nerves: No cranial nerve deficit. Sensory: No sensory deficit. Motor: No weakness. Coordination: Coordination normal. Gait: Gait normal. Medications Current Outpatient Medications Medication Sig Dispense Refill ??? aspirin EC (ECOTRIN) 325 MG tablet Take 325 mg by mouth once daily ??? B Complex Vitamins (VITAMIN B COMPLEX PO) ??? escitalopram (LEXAPRO) 5 MG tablet Take 5 mg by mouth once daily ??? flecainide (TAMBOCOR) 100 MG tablet TAKE 1 TABLET BY MOUTH TWICE DAILY 180 tablet 0 ??? hydrocortisone (ANUSOL-HC) 25 MG suppository Insert 1 suppository into the rectum 2 times dailyas needed for Hemorrhoids (Patient not taking: Reported on 11/23/2018) 15 suppository 0 ??? meloxicam (MOBIC) 15 MG tablet Take 15 mg by mouth daily with food ??? rosuvastatin (CRESTOR) 10 MG tablet Take 10 mg by mouth at bedtime Procedures Procedures Lab/SPO2 Interpretation No results found for this visit on 10/14/20. No orders to display Progress Notes ED Course Clinical Impressions as of Oct 14 632 Acute nonintractable headache, unspecified headache type Medical Decision Making ASSESSMENT 59 year old male who was seen and evaluated for headache. DDX: Differential diagnosis includes but is not limited to subarachnoid hemorrhage versus intracranial mass versus tension headache versus migraine versus polyurethane exposure versus covid. ED LABS, INTERVENTIONS, CONSULTS: Labs, EKG, CT head, CT angio brain and neck IMAGING & ECG: CT HEAD NON CONTRAST - intracranial hemorrhage (Results Pending) CT ANGIO BRAIN AND NECK (Results Pending) EKG Interpretation Interpreted by emergency department physician Sinus bradycardia, rate 57, normal axis intervals, no acute ST changes. Nonspecific T-wave flattening. Parihs Kim MD ED PLAN AND COURSE: I examined the patient myself and ordered the above labs, therapeutics, and consultations. Pertinent chart review was performed including recent visits, laboratory testing, nursing notes, as well as records from OSH available at the time of the patient encounter. Patient presents with acute onset headache. No neurological symptoms and patient is otherwise nontoxic appearing however given sudden onset and severity, there was some concern for subarachnoid hemorrhage. CT non-con was obtained within 6 hr of onset of headache and was negative so this is very reassuring in ruling out subarachnoid hemorrhage. CT head was also negative for any aneurysm or cervical artery dissection. The possibility of performing a lumbar puncture to definitively rule out subarachnoid hemorrhage was discussed but patient declined which I feel is reasonable given my low suspicion at this time. Patient was given migraine cocktail and on re-evaluation, states he is feeling significantly better, headache was completely gone. Labs reassuring. Covid swab pending. Patient states he is feeling well enough to be discharged which I feel is reasonable with close outpatient follow-up with his PCP. Return precautions were discussed. Strict return precautions were given to the patient. Reasons to return to the ED, potential complications, expected course of the patient's condition, and recommended treatments were discussed with the patient. The patient had the opportunity to askquestions, and any degree of diagnostic uncertainty regarding their symptoms was discussed. The patient was also instructed to follow up with their primary care physician and/or any appropriate specialists. The patient expressed understanding and agreement, and will be discharged in good condition. IMPRESSION: 1. Headache, not intractable DISPOSITION: Discharge Parish Kim MD This note was dictated using PLDT Software. Attempts at proofreading have been made, however errors may still occasionally occur. No orders of the defined types were placed in this encounter. documented in this encounter Plan of Treatment Upcoming Encounters Date Type Department Care Team (Late st Contact Info) Description 03/22/2024 9:00 AM COAL PULVERIZER OPERATOR Office Visit [facility] - Ophthalmology [address] [place] [phone] Ernesto Hawkins MD [address] [place] [phone] documented as of this encounter Procedures Procedure Name Priority Date/Time Associated Diagnosis Comments CARDIAC EKG ORDER 10/17/2020 1:[address] ANGIO BRAIN AND NECK STAT 10/14/2020 7:42 AM CDT Acute nonintractable headache, unspecified headache type CT HEAD WO CONTRAST STAT 10/14/2020 7 :41 AM CDT Acute nonintractable headache, unspecified headache type EKG 12-LEAD STAT 10/14/2020 7:05 AM CDT Acute nonintractable headache, unspecified headache type SARS-COV-2 (COVID-19) IN HOUSE STAT 10/14/2020 6:57 AM CDT TROPONIN I STAT 10/14/2020 6:57 AM CDT CBC W AUTO DIFFERENTIAL STAT 10/14/2020 6:57 AM CDT COMPREHENSIVE METABOLIC PANEL STAT 10/14/2020 6:57 AM CDT documented in this encounter Results * CARDIAC EKG ORDER (10/17/2020 1:04 AM CDT) Narrative 10/17/2020 1:04 AM CDT Ordered by an unspecified provider. Scanned Document CARDIAC SERVICES ORD ERABLES * CT ANGIO BRAIN AND NECK (10/14/2020 7:42 AM CDT) Anatomical Region Laterality Modality Head Computed Tomogra phy 10/14/2020 8:10 AM CDT Impressions 10/14/2020 8:13 AM CDT Unremarkable neck CTA. Brain: The internal carotid arteries, middle cerebral arteries, right anterior cerebral arteries, vertebral arteries, posterior cerebral arteries, basilar artery, and branch vessels of the [place] are widely patent without evidence [...] basilar artery, and branch vessels of the [place] are widely patent without evidence [...] AM Parish Kim MD CT ORDERABLES * EKG 12-LEAD (10/14/2020 7:05 AM CDT) Ventricular Rate 57 BPM [facility] Atrial Rate 57 BPM [facility] P-R Interval 138 ms [facility] QRS Duration ms 92 ms [facility] Q-T Interval ms 418 ms [facility] QTC Calculation (Bezet) 406 ms [facility] Calculated P [place] 58 degrees [facility]USE Calculated R [place] 20 degrees [facility] Calculated T [place] 20 degrees [facility] Interpretation EKG Sinus bradycardia Nonspecific T wave abnormality Abnormal ECG Confirmed by Bharat Vargas ([id number]) on 10/15/2020 8:45:11 AM [facility] MUSE 10/14/2020 7:05 AM CDT 10/15/2020 8:45 AM CDT Parish Kim MD ECG ORDERABLES [facility] * TROPONIN I (10/14/2020 6:57 AM CDT) Troponin I <0.010 <0.038 ng/mL 10/14/2020 8:07 AM CDT [facility] Blood BLOOD SPECIMEN / Unknown Venipuncture / Unknown 10/14/2020 6:57 AM CDT 10/14/2020 7:05 AM CDT Parish Kim MD LAB - CHEMISTRY JOSEAnayeli JASMINE [facility] [address] [place] [address] * SARS-COV-2 (COVID-19) INTERNAL (10/14/2020 6:57 AM CDT) COVID-19 PCR Not detected Not detected 10/14/2020 6:[address] [facility] Microbiology SPECIMEN FROM NASOPHARYNGEAL STRUCTURE / Unknown Collection / Unknown 10/14/2020 6:57 AM CDT 10/14/2020 7:05 AM CDT Narrative [facility] - 10/14/2020 6:31 PM CDT This nucleic acid amplification assay performance was validated by [facility]. This test has been authorized [...] Kim MD LAB - MICROBIOLOGY O RDERABLES [facility] [address] [place] [address], [facility] [phone] * (ABNORMAL) COMPREHENSIVE METABOLIC PANEL (10/14/2020 6:57 AM CDT) [facility] Glucose 125(H) 70 - 105 mg/dL 10/14/2020 7:22 AM [facility] Sodium 140 136 - 145 mmol/L 10/14/2020 7:22 AM [facility] Potassium 4.2 3.5 - 5.1 mmol/L 10/14/2020 7:22 AM [facility] Chloride 112(H) 98 - 107 mmol/L 10/14/2020 7:22 AM [facility] CO2 21(L) 23 - 31 mmol/L 10/14/2020 7:22 AM [facility] Calcium 9.2 8.4 - 10.4 mg/dL 10/14/2020 7:22 AM [facility] Anion Gap 7(L) 8 - 18 mmol/L 10/14/2020 7:22 AM [facility] BUN 15 8.4 - 25.7 mg/dL 10/14/2020 7:22 AM [facility] Creatinine 0.80 0.72 - 1.25 mg/dL 10/14/2020 7:22 AM [facility] Alkaline Phosphatase 63 40 - 150 U/L 10/14/2020 7:22 AM [facility] ALT 62(H) 0 - 61 U/L 10/14/2020 7:22 AM [facility] AST 51(H) 5 - 34 U/L 10/14/2020 7:22 AM [facility] Protein Total 6.3(L) 6.4 - 8.3 gm/dL 10/14/2020 7:22 AM [facility] Albumin 3.7 3.2 - 4.6 gm/dL 10/14/2020 7:22 AM [facility] Bilirubin Total 0.3 0.2 - 1.2 mg/dL 10/14/2020 7:22 AM [facility] eGFR by MDRD >60 >60 mL/min/1.7 3m2 10/14/2020 7:22 AM [facility] eGFR by MDRD >60 >60 mL/min/1.7 3m2 10/14/2020 7:22 AM CDT [facility] Blood BLOOD SPECIMEN / Unknown Venipuncture / Unknown 10/14/2020 6:57 AM CDT 10/14/2020 7:05 AM CDT Parish Kim MD LAB - CHEMISTRY JON JASMINE [facility] Address City/State/ZIP Co de Phone Number [facility] [address], [place] [id number] * (ABNORMAL) CBC W AUTO DIFFERENTIAL (10/14/2020 6:57 AM CDT) WBC 6.7 4.4 - 10.7 x10E9/L 10/14/2020 7:07 AM CDT [facility] WBC Corrected 10/14/2020 7:07 AM CDT [facility] RBC 4.49 3.80 - 5.40 x10E12/L 10/14/2020 7:07 AM CDT [facility] Hemoglobin 13.5 12.0 - 17.6 gm/dL 10/14/2020 7:07 AM CDT [facility] Hematocrit 40.7 35.2 - 51.7 % 10/14/2020 7:07 AM CDT [facility] MCV 90.6 80.7 - 98.3 fl 10/14/2020 7:07 AM CDT [facility] MCH 30.1 26.7 - 34.0 pg 10/14/2020 7:07 AM CDT [facility] MCHC 33.2 30.8 - 35.9 gm/dL 10/14/2020 7:07 AM CDT [facility] Platelet Count 216 153 - 416 x10E9/L 10/14/2020 7:07 AM CDT [facility] RDW-CV 12.5 12.1 - 14.9 % 10/14/2020 7:07 AM CDT [facility] MPV 9.6 9.4 - 12.9 fl 10/14/2020 7:07 AM CDT [facility] Neutrophils % 78.7(H) 44.0 - 73.0 % 10/14/2020 7:07 AM CDT [facility] Lymphocytes % 14.0(L) 20.0 - 43.0 % 10/14/2020 7:07 AM CDT [facility] Monocytes % 5.7 5.0 - 13.0 % 10/14/2020 7:07 AM [facility] Eosinophils % 1.0 0.0 - 6.0 % 10/14/2020 7:07 AM T [facility] Basophils % 0.3 0.0 - 2.0 % 10/14/2020 7:07 AM [facility] Immature Granulocytes 0.3 0 - 1 % 10/14/2020 7:07 AM [facility] Neutrophil Absolute 5.28 2.01 - 7.14 x10E9/L 10/14/2020 7:07 AM T [facility] Lymphocytes Absolute 0.94(L) 1.07 - 3.94 x10E9/L 10/14/2020 7:07 AM [facility] Monocytes Absolute 0.38 0.26 - 1.07 x10E9/L 10/14/2020 7:07 AM [facility] Eosinophils Absolute 0.07 0 - 0.47 x10E9/L 10/14/2020 7:07 AM [facility] Basophils Absolute 0.02 0 - 0.08 x10E9/L 10/14/2020 7:07 AM [facility] Immature Granulocytes Absolute 0.02 0.00 - 0.06 x10E9/L 10/14/2020 7:07 AM [facility] nRBC Auto 0 /100 WBC 10/14/2020 7:07 AM [facility] Blood BLOOD SPECIMEN / Unknown Venipuncture / Unknown 10/14/2020 6:57 AM CDT 10/14/2020 7:05 AM CDT Parish Kim MD LAB - HEMATOLOGY ORD ERABLES [facility] [address] [address] documented in this encounter Visit Diagnoses Diagnosis Acute nonintractable headache, unspecified headache type documented in this encounter Administered Medications Inactive Administered Medications - up to 3 most recent administrations Medication Order MAR Action Action Date Dose Rate Site 0.9% NaCl IV flush bag Intravenous, CONTRAST ONCE, Starting on 10/14/20 at 0703, Until 10/14/20 at 1048, To be used as a flush. Change IV bag every 24 hours. famotidine (Pepcid) injection 20 mg 20 mg, Intravenous, NOW, 1 dose, On 10/14/20 at 0830, Dilute with 0.9% NaCl or D5W solution to a volume of 5 to 10 ml and administer over at least 2 minutes. $ Given 10/14/2020 8:39 AM CDT 20 mg iopamidol (Isovue 370) 76 % contrast Intravenous, CONTRAST ONCE, Starting on 10/14/20 at 0703, Until 10/14/20 at 1048 $ Given - Contrast 10/14/2020 7:42 AM CDT 80 mL ketorolac (Toradol) injection 15 mg 15 mg, Intravenous, NOW, 1 dose, On 10/14/20 at 0830 $ Given 10/14/2020 8:39 AM CDT 15 mg lactated ringers IV bolus 1,000 mL, at 1,935.48 mL/hr, Administer over 31 Minutes, NOW, 1 dose, On 10/14/20 at 0830 $ New Bag/Syringe 10/14/2020 8:39 AM CDT 1,000 mL 1935.48 mL/hr metoclopramide (Reglan) injection 10 mg 10 mg, Intravenous, NOW, 1 dose, On 10/14/20 at 0645, Inject undiluted IV slowly over 1 to 2 minutes. $ Given 10/14/2020 8:39 AM CDT 10 mg documented in this encounter Active and Recently Administered Medications Times are shown in CDT. Scheduled Medication Order 10/12/2020 10/13/2020 10/14/2020 0.9% NaCl IV flush bag(Linked Group 1) Intravenous, CONTRAST ONCE, Starting on 10/14/20 at 0703, Until 10/14/20 at 1048, To be used as a flush. Change IV bag every 24 hours. famotidine (Pepcid) injection 20 mg (COMPLETED) 20 mg, Intravenous, NOW, 1 dose, On 10/14/20 at 0830, Dilute with 0.9% NaCl or D5W solution to a volume of 5 to 10 ml and administer over at least 2 minutes. 0839 ($ Given - Prov ider: Noemi Cameron RN) iopamidol (Isovue 370) 76 % contrast(Linked Group 1) Intravenous, CONTRAST ONCE, Starting on 10/14/20 at 0703, Until 10/14/20 at 1048 0742 ($ Given - Cont rast - Provider: Tyson Garcia, RT(R)) ketorolac (Toradol) injection 15 mg (COMPLETED) 15 mg, Intravenous, NOW, 1 dose, On 10/14/20 at 0830 0839 ($ Given - Prov ider: Noemi Cameron RN) lactated ringers IV bolus (COMPLETED) 1,000 mL, at 1,935.48 mL/hr, Administer over 31 Minutes, NOW, 1 dose, On 10/14/20 at 0830 0839 ($ New Bag/Syri nge - Provider: Noemi Cameron RN)[id number] (Stopped - Provider: Noemi Cameron RN) metoclopramide (Reglan) injection 10 mg (COMPLETED) 10 mg, Intravenous, NOW, 1 dose, On 10/14/20 at 0645, Inject undiluted IV slowly over 1 to 2 minutes. 0839 ($ Given - Prov ider: Noemi Cameron RN) Linked Groups Order Group 1: iopamidol (Isovue 370) 76 % contrastJump to med Intravenous, CONTRAST ONCE, Starting on 10/14/20 at 0703, Until 10/14/20 at 1048 And 0.9% NaCl IV flush bagJump to med Intravenous, CONTRAST ONCE, Starting on 10/14/20 at 0703, Until 10/14/20 at 1048, To be used as a flush. Change IV bag every 24 hours. documented in this encounter Additional Health Concerns Infection Onset Date Last Indicated Resolved Time COVID-19 Under Investigation 10/14/2020 10/14/2020 10/14/2020 6:31 PM CDT documented as of this encounter Care Teams Director Of Radio Services Relationship Specialty Start Date End Date Elias Mayorga MD [address] [facility] [address] [place] [address] PCP - General Internal Medicine 09/07/14 Elias Mayorga MD [address] [place] [address] PCP - Att[employer] [facility] 08/25/19 08/12/22 Stephanie Prasad RN [address] [facility] [address] [place], [place] [address] Airplane Rental Clerk 10/06/13 Lan Bragg DO [address] [facility] [address] [place] [address] Orthopedic Surgery 06/02/14 documented as of this encounter
--- OUTSIDE RECORDS SUMMARY | 2024-03-07 21:56 | XMS_ITS | Encounter Summary ---
Author Organization [facility] Address [address] [facility] [address] [address] Care Team Providers Care Dairy Products Maker Name Role Phone Stephanie Prasad RN Unavailable Lan Bragg DO Unavailable Elias Mayorga MD Primary Care Provider [phone] Reason for Visit * Reason Comments Prostate Cancer Encounter Details Date Type Department Care Team (Late st Contact Info) Description 02/05/2018 9:50 AM CLIENT REPORTING ASSOCIATE Office Visit [facility] [address] [facility] [address] [place], [place] [phone] Pepito Baron MD [address] [place] [phone] Prostate cancer (HCC) (Primary Dx) Social History Tobacco Use Types [...] Reading Time Taken Comments Blood Pressure 138/90 02/05/2018 9:52 AM CLIENT REPORTING ASSOCIATE Pulse 66 02/05/2018 9:52 AM CLIENT REPORTING ASSOCIATE Temperature - - Respiratory Rate - - Oxygen Saturation 98% 02/05/2018 9:52 AM CLIENT REPORTING ASSOCIATE Inhaled Oxygen Concentration - - Weight 86.2 kg (190 lb) 02/05/2018 9:52 AM CLIENT REPORTING ASSOCIATE Height 172.7 cm (5' 8 ) 02/05/2018 9:52 AM CLIENT REPORTING ASSOCIATE Body Mass Index 28.89 02/05/2018 9:52 AM CLIENT REPORTING ASSOCIATE documented in this encounter Functional Status Functional [...] this encounter Patient Instructions * Patient Instructions* Don Parry - 02/05/2018 10:31 AM CLIENT REPORTING ASSOCIATE TO-DO: Give office a call if you wish to follow-up with Dr. Baron. IF YOU HAVE ANY QUESTIONS PLEASE CONTACT THE OFFICE AT [phone]. If you receive a ???[facility] Medical Patient Satisfaction Survey?? , we would appreciate you taking the time to complete this survey. HAVE A GREAT DAY AND THANK YOU FOR CHOOSING [facility]! If your employer requires FMLA (Family Medical Leave Act) or Disability paperwork completed for your time off work, you may fax, mail, or drop the forms off. Please make sure you complete your portion of the paperwork. These forms will be filled out within 48 hours of your scheduled surgery. Our fee for this service is $20.00 and is due prior to being sent. NT REPORTING ASSOCIATE documented in this encounter Progress Notes * Pepito Baron MD - 02/05/2018 11:39 AM CST Urologic Surgery Office New Visit Note Encounter Date: 02/05/2018 Patient Name: Kenji Camara I am seeing Kenji Camara in consultation for: Chief Complaint Patient presents with ??? Prostate Cancer - History of Present Illness: Kenji Camara is a 57 y.o. male who presents to the urology office for evaluation of prostate cancer The patient presented in the summer of 2016 with a PSA of 4.6. Dr Fernandez did a biopsy that showed a single core of 3+3=6 CaP at the [facility], <3%. He chose a course of , and had a negative MRI of the prostate in Jan 2017. He just had a PSA with Dr Fernandez recently but does not know the result.He apparently did not have regular PSAs done in the interim. Past Medical History: Diagnosis Date ??? Afib [...] ??? 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 Cordon. [employer]. Successful and uncomplicated ILR implantation. ??? Shoulder Arthroscopy Current Outpatient Prescriptions Medication ??? B Complex Vitamins (VITAMIN B COMPLEX PO) ??? flecainide (TAMBOCOR) 100 MG tablet ??? hydrocortisone (ANUSOL-HC) 25 MG suppository ??? aspirin EC (ECOTRIN) 325 MG tablet ??? rosuvastatin (CRESTOR) 10 MG tablet No current facility-administered medications for this visit. Allergies Allergen Reactions ??? Naproxen GI Discomfort Family History Problem Relation Age of Onset ??? Hypertension Mother ??? Cancer - Prostate Father ??? Coronary Artery Disease Father Social History Social History ??? Marital status: Spouse [...] ??? Special Diet No Social History Narrative Review of Systems Constitutional: No unexplained fever, sweats. Eyes: Vision stable, no discomfort. Ears, nose, mouth, and throat: No mouth dryness, sores, hearing stable , no nasal discharge. Respiratory: No cough, dyspnea, wheezing, pleuritic pain. Cardiovascular: No exertional chest pain, palpitations, edema, claudication. Gastrointestinal: No bleeding, frequent reflux, dysphagia, change in bowels, pain. Genitourinary: No dysuria,frequency, bleeding. Skin: No recent rashes, or pruritus. Breast: No masses, pain or nipple discharge. Hematologic/lymphatic: No history of anemia. No abnormal bleeding or bruising. Musculoskeletal: No painful joints, myalgia, swelling, weakness. Neurological: Stable gait, no numbness, tingling, syncope, dizziness. Behavioral/Psych: No sleep disturbance, memory changes, depression. Endocrine: No fatigue or weight change. BP 138/90 Pulse 66 Ht 1.727 m (5' 8 ) Wt 86.2 kg (190 lb) SpO2 98% BMI 28.89 kg/m2 Physical Exam: Constitutional: normal, alert, cooperative and no distress Eyes: anicteric sclerae, extraocular eye movements intact and no ptosis HENMT: normocephalic, atraumatic. nares are symmetric, no nasal flaring or respiratory distress. Noobvious lesions or masses. No lip cyanosis. Cardiovascular: no digital clubbing or cyanosis present, no palpable abdominal aortic aneurysm. No peripheral edema. Pulmonary/Respiration: normal respiratory rate and non-labored, comfortable respiratory effort without recruitment of accessory respiratory muscles. No intercostal retractions. Normal diaphragmatic movement. Abdominal: soft, non-tender, non-distended, no suprapubic tenderness to palpation and no flank tenderness to palpation. No masses or hepatosplenomegaly. Musculoskeletal: normal station and posture. Moves all extremities. Neurological: cranial nerves II through XII intact Psychiatric: alert, oriented, normal speech, no focal findings or movement disorder noted. Exhibitsappropriate insight during discussion. Skin: normal coloration and turgor, no rashes, no suspicious skin lesions noted. Hematological/Immunological: no echymosis, no bleeding gums and no jaundice Lymphatic: no femoral or inguinal palpable lymphadenopathy Laboratory Results: No results for input(s): WBC, RBC, HGB, HCT, MCV, PLTCOUNT in the last 09028 hours. No results for input(s): SODIUM, POTASSIUM, CHLORIDE, CO2, BUN, CREATININE, GLUCOSE, CALCIUM, PHOS in the last 95210 hours. No results for input(s): ALBUMIN, ALKPHOS, ALT, AST in the last 13541 hours. No results for input(s): PSA in the last 42845 hours. Microbiology Results: Recent Labs Component Name 07/26/17 1044 SPECGRAVUA 1.010 PHUA 5.0 PROTEINUA neg BLOODUA 3+ LEUKOCYTEUA trace NITRITEUA neg GLUCOSEUA neg KETONEUA neg BILIRUBINUA neg UROBILINUA 0.2 Radiographic Results: No results found. I have personally visualized the above radiographic images, and if available, the radiology report(s). Diagnosis: No diagnosis found. Plan: No orders of the defined types were placed in this encounter. Plan Prostate cancer I had a long talk with the patient, primarily about the role that surveillance biopsy plays He is understandably hesitant to do another biopsy, but no opposed. I think it somewhat depends on his PSA, but I would ultimately land on the side of doing a repeat biopsy. He will think things over, attempt to get the PSA from Dr Fernandez, and decide if he would like to transfer his care toour office NT REPORTING ASSOCIATE documented in this encounter Plan of Treatment Upcoming Encounters Date Type Department Care Team (Late st Contact Info) Description 03/22/2024 9:00 AM CLIENT REPORTING ASSOCIATE Office Visit [facility] - Ophthalmology [address] [place] [phone] Ernesto Hawkins MD [facility] [place] [phone] documented as of this encounter Visit Diagnoses Diagnosis Prostate cancer (HCC)- Primary Malignant neoplasm of prostate documented in this encounter Care Teams Dairy Products Maker Relationship Specialty Start Date End Date Elias Mayorga MD [address] [facility] [address] [place] [address] PCP - General Internal Medicine 09/07/14 Stephanie Prasad RN [address] [place] [address] Assistant General Manager 10/06/13 Lan Bragg DO [address] [place] [address] Orthopedic Surgery 06/02/14 documented as of this encounter
--- OUTSIDE RECORDS SUMMARY | 2024-03-07 21:56 | XMS_ITS | Encounter Summary ---
Author Organization [facility] Address [address] [facility] [place] [address] Care Team Providers Care Plant Anatomist Name Role Phone Stephanie Prasad RN Unavailable [phone] Lan Bragg DO Unavailable Elias Mayorga MD Primary Care Provider [phone] Reason for Visit * Auth/Cert Specialty Diagnoses / Procedures Referred By Rosa espinosa Referred To Contact Procedures COLONOSCOPY SCREEN Referral ID Status Reason Start Date Expiration Date Visits Re quested Visits Authorized [id number] 1 1 Encounter Details Date Type Department Care Team (Late st Contact Info) Description 06/16/2015 8:00 AM CDT - 06/16/2015 8:30 AM CDT Surgery [facility] - Endoscopy Services [address] [place] [address] [place] [address] [facility] [address] [phone] COLONOSCOPY SCREEN Surgery Details Date/Time Status Location OR Service Patient Class Case Class Case Type Trauma Case? 06/16/2015 8:00 AM Posted [facility] ENDO ENDO 02 Gastroenterology Surgery Day Care Elective > 5 days Panel 1 Procedure LRB Anes Op Region Wound Class Comments COLONOSCOPY SCREEN MAC Clean Conta minated Surgeon Surgeon Role Service Panel Shailesh Brar MD Primary Gastroenterology 1 documented in this encounter Social History Tobacco [...] ENDOSCOPY PRE-PROCEDURE MEDICAL HISTORY & PHYSICAL Kenji Hampton Jax 54 y.o. male BP 125/91 mmHg Pulse 67 Temp(Src) 98 ??F Resp 18 Wt 178 lb (80.74 kg) BMI 27.07 kg/m2 History: Past Medical History Diagnosis Date ??? Atrial flutter 12/30/2013 ??? S/P ablation of atrial flutter 01/11/14 [place]; Successful and uncomplicated ablation of typical atrial flutter circuit, ??? DVT (deep venous thrombosis) left leg upper calf ??? Afib 2014 Allergies Allergen Reactions ??? Naproxen GI Discomfort [...] st Contact Info) Description 03/22/2024 9:00 AM CORRECTIONAL CASE RECORDS SUPERVISOR Office Visit [facility] - Ophthalmology [address] [place] [phone] Ernesto Hawkins MD [address] [place] [phone] documented as of this encounter Procedures Procedure [...] the physician, the ? nurse and the maintenance mechanic technician in the procedure room. Mental ? Status [...] Procedure Code(s): ? --- Professional --- ? 61949, Colonoscopy, flexible; diagnostic, including collection of ? specimen(s) by brushing or washing, when performed (separate procedure) ? --- Technical --- ? 16909, Colonoscopy, flexible; diagnostic, including collection of ? specimen(s) by brushing or washing, when performed (separate procedure) Diagnosis Code(s): ? --- Professional --- ? K64.8, Other hemorrhoids ? Z12.11, Encounter for screening for malignant neoplasm of colon ? --- Technical --- ? K64.8, Other hemorrhoids ? Z12.11, Encounter for screening for malignant neoplasm of colon CPT copyright 2015 [employer]. All rights reserved. The codes documented in this report are preliminary and upon supervisor customer services review may be revised to meet current compliance requirements. Dr. Shailesh Brar MD Shailesh Brar MD 06/16/2015 8:52:37 AM This report has been signed electronically. Number of Addenda: 0 Note Initiated On: 06/16/2015 8:27 AM [facility] 06/16/2015 8:27 AM CDT Shailesh Brar MD GI PROCEDURE ORDERA [facility] [place] [address] documented in this encounter Visit Diagnoses Not [...] Olivier RN)[phone] ($ New Bag/Syringe - Provider: CASSANDRA McdowellENTERPRISE SOLUTIONS ARCHITECT)[phone] (Anesthesia Volume Adjustment - Provider: CASSANDRA McdowellENTERPRISE SOLUTIONS ARCHITECT) documented in this encounter Care Teams Plant Anatomist Relationship Specialty Start Date End Date Elias Mayorga MD [address] [place] [address] PCP - General Internal Medicine 09/07/14 Stephanie Prasad RN [address] [place] [address] Park Worker 10/06/13 Lan Bragg DO [address] [place] [address] Orthopedic Surgery 06/02/14 documented as of this encounter
--- OUTSIDE RECORDS SUMMARY | 2024-03-07 21:56 | XMS_ITS | Encounter Summary ---
Author Organization [facility] Address [address] [facility] [address] Care Team Providers Care Counterintelligence/Humint Specialist Name Role Phone Stephanie Prasad RN Unavailable [phone] Lan Bragg DO Unavailable Elias Mayorga MD Primary Care Provider [phone] Reason for Visit * Reason Onset Date Comments Pacemaker Check 11/26/2016 Pt called dee wisemand about a bill that he received in the mail from a transmission from a few months ago. He is due to send a transmission today but he said that until he can figure out what is going on with the bll that he wants to put a stop to his transmissions for now. Encounter Details Date Type Department Care Team (Late st Contact Info) Description 11/26/2016 Telephone [facility] [address] [place] [address] Shannon Cordon MD [address] [address] Pacemaker Check (Pt called concerned about a bill that he received in the mail from a transmission from a few months ago. He is due to send a transmission today but he said that until he can figure out what is going on with the bll that he wants to put a stop to his transmissions for now. ) Social History Tobacco Use Types Packs/Day Years [...] st Contact Info) Description 03/22/2024 9:00 AM EXHIBIT DESIGNER Office Visit [facility] - Ophthalmology [address] [place] [phone] Ernesto Hawkins MD [address] [place] [phone] documented as of this encounter Visit Diagnoses Not on filedocumented in this encounter Care Teams Counterintelligence/Humint Specialist Relationship Specialty Start Date End Date Elias Mayorga MD [address] [facility] [address] [place] [address] PCP - General Internal Medicine 09/07/14 Stephanie Prasad RN [address] [facility] [address] [place] [address] Checker Product Design 10/06/13 Lan Bragg DO [address] [facility] [address] [place] [address] Orthopedic Surgery 06/02/14 documented as of this encounter
--- OUTSIDE RECORDS SUMMARY | 2024-03-07 21:56 | XMS_ITS | Encounter Summary ---
Author Organization [facility] Address [address] [facility] [place] [address] Care Team Providers Care Supervisor Laboratory Animal Facility Name Role Phone Stephanie Prasad RN Unavailable [phone] Lan Bragg DO Unavailable Elias Mayorga MD Primary Care Provider [phone] Reason for Visit * Reason Comments Atrial Fibrillation Atrial Flutter Encounter Details Date Type Department Care Team (Late st Contact Info) Description 06/13/2017 3:15 PM CDT Office Visit [facility] [address] [phone] Shannon Cordon MD [address] [address] PAF (paroxysmal atrial fibrillation) (HCC) (Primary Dx); Typical atrial flutter (HCC); Premature atrial contractions; Status post placement of implantable loop recorder [...] Sign Reading Time Taken Comments Blood Pressure 118/72 06/13/2017 3:11 PM CDT Pulse 72 06/13/2017 3:11 PM CDT Temperature - - Respiratory Rate - - Oxygen Saturation 97% 06/13/2017 3:11 PM CDT Inhaled Oxygen Concentration - - Weight 85.3 kg (188 lb) 06/13/2017 3:11 PM CDT Height 172.7 cm (5' 8 ) 06/13/2017 3:11 PM CDT Body Mass Index 28.59 06/13/2017 3:11 PM CDT documented in this encounter Functional [...] * Patient Instructions* Shannon Cordon MD - 06/13/2017 3:39 PM CDT Continue flecainide Resume Aspirin 325 mg daily Follow up in 1 year documented in this encounter Progress Notes * Shannon Cordon MD - 06/13/2017 3:12 PM CDT ELECTROPHYSIOLOGY OFFICE VISIT 06/13/2017 Kenji Hampton Jax 1960 56 y[address]o. male [address] Elias Mayorga [place]: [place] [address] [place] [address] REASON FOR VISIT/CHIEF COMPLAINT Follow up of the following medical problems Paroxysmal AF - 11/07/14 Hx of atrial flutter s/p ablation S/p repeat EP study with no inducible arrhythmia besides AF Flecainide therapy Hx of DVT HPI The patient returns today for followup of the above medical diagnoses. Since last visit he has feltwell. He feels he has had only 1 or 2 episode of palpitations which was tolerable. He is tolerating flecainide. Still not on anticoagulant and not taking his aspirin. Patient denies lightheadedness, syncope, chest pain, shortness of breath, orthopnea, PND or leg edema. CURRENT MEDS Outpatient Prescriptions Marked as Taking [...] - nl gait DATA Loop recorder interrogation- episodes of paroxysmal atrial fibrillation documented. See scanned copy No pause ASSESSMENT Paroxysmal AF - 11/07/14 Hx of atrial flutter s/p ablation S/p repeat EP study with no inducible arrhythmia besides AF Flecainide therapy Hx of DVT PLAN Continue flecainide Resume Aspirin 325 mg daily (risk of stroke re-iterated) He has stopped sending routine monthly device checks remotely due to cost. Follow up in 1 year It was a pleasure attending to Kenji Camara today. Thank you for the opportunity to participate in his care. Shannon Cordon M.D. Cardiac Positive Printer Operator [facility] [place] [phone] (office) [phone] (pager) documented in this encounter Plan of Treatment Upcoming Encounters Date Type Department Care Team (Late st Contact Info) Description 03/22/2024 9:00 AM COMMUNICATIONS MEDIA PROFESSOR Office Visit [facility] - Ophthalmology [address] [place] [phone] Ernesto Hawkins MD [address] [place] [phone] documented as of this encounter Procedures Procedure Name Priority Date/Time Associated Diagnosis Comments ILR DEVICE INTERROGATION Routine 06/13/2017 PAF (paroxysmal atrial fibrillation) (HCC) Typical atrial flutter (HCC) Premature atrial contractions Status post placement of implantable loop recorder documented in this encounter Results * ILR DEVICE INTERROGATION (06/13/2017) Shannon Cordon MD CARDIAC SERVICES ORDERABLES [facility] RESULT SCAN documented in this encounter Visit Diagnoses Diagnosis PAF (paroxysmal atrial fibrillation) (HCC)- Primary Atrial fibrillation Typical atrial flutter (HCC) Atrial flutter Premature atrial contractions Supraventricular premature beats Status post placement of implantable loop recorder documented in this encounter Care Teams Supervisor Laboratory Animal Facility Relationship Specialty Start Date End Date Elias Mayorga MD [address] [employer] [facility] [address] [place] [address] PCP - General Internal Medicine 09/07/14 Stephanie Prasad RN [address] [facility] [address] [place] [address] Audio Visual Tech 10/06/13 Lan Bragg DO [address] [employer] [facility] [address] [place] [address] Orthopedic Surgery 06/02/14 documented as of this encounter
--- OUTSIDE RECORDS SUMMARY | 2024-03-07 21:57 | XMS_ITS | Encounter Summary ---
Author Organization [facility] Address [address] [place] [address] Care Team Providers Care Heel Cutter Name Role Phone Ten Umanzor Primary Care Provider Stephanie Patterson RN Unavailable [phone] Reason for Referral * Cardiac - Closed Specialty Diagnoses / Procedures Referred By Contac t Referred To Contact Cardiology Diagnoses Palpitations Procedures HOLTER MONITOR Shannon Cordon MD [address] [place] [address] Referral ID Status Reason Start Date Expiration Date Visits Re quested Visits Authorized [id number] Closed 01/24/2014 03/10/2014 1 1 ISH MAKER * Cardiac - Closed Specialty Diagnoses / Procedures Referred By Contac t Referred To Contact Cardiology Diagnoses Palpitations Procedures CARDIAC EVENT MONITOR Shannon Cordon MD [address] [place] [address] Referral ID Status Reason Start Date Expiration Date Visits Re quested Visits Authorized [id number] Closed 01/24/2014 03/10/2014 1 1 ISH MAKER Reason for Visit * Reason Onset Date Comments Question 01/19/2014 Encounter Details Date Type Department Care Team (Late st Contact Info) Description 01/19/2014 Telephone [facility] [address] [place] [address] Shannon Cordon MD [address] [place] [address] Question Social History Tobacco Use Types Packs/Day [...] encounter Miscellaneous Notes * Telephone Encounter - Isidra Dorsey - 01/19/2014 4:18 PM CST Orders for Holter/Event placed in [facility]. [employer] monitor ordered and will be sent to pts home within 2-3 days. Pt aware. I ask him to let me know if he doesn't see it by Friday of next week. He voiced understanding. ISH MAKER * Telephone Encounter - Shannon Cordon MD - 01/19/2014 2:06 PM VARNISH MAKER Pls send him an event monitor. He should not change anything at this time. Shannon Cordon MD 01/19/2014 2:07 PM ISH MAKER * Telephone Encounter - Shanthi Dailey MA - 01/19/2014 11:55 AM VARNISH MAKER Patient called back stating that he had some issues yesterday morning when he woke up with an irregular heart beat that lasted approx. 4 hours and then went back to normal. This am when he woke up hewas having it again but feels it may have been more transient and not real sure about today. Patient further states he is wandering if it may be anxiety itself and knowing he really needs to keep hisstress level down is asking if you think he would benefit from some medication the next few months that would help keep his anxiety lower . Please advise: Pt's number is [phone] ISH MAKER * Telephone Encounter - Ryan Parsons - 01/19/2014 9:29 AM CST Pt called wanting to speak with Isidra, he did not state what it was regarding. Pt just said that he has some things going on. Pt number is . ISH MAKER documented in this encounter Plan of Treatment Upcoming Encounters Date Type Department Care Team (Late st Contact Info) Description 03/22/2024 9:00 AM VARNISH MAKER Office Visit [facility] - Ophthalmology [address] [place] [phone] Ernesto Hawkins MD [address] [place] [phone] documented as of this encounter Results * CARDIAC EVENT MONITOR (03/17/2014 1:16 AM VARNISH MAKER) Narrative [facility] RESULT SCAN - 03/17/2014 1:16 AM VARNISH MAKER Shannon Cordon MD ? 03/17/2014 ??1:16 AM [facility] CARDIOLOGY MOBILE CARDIAC TELEMETRY MONITORING ? Pts name: Kenji Camara : 1960 Ordering Physician: Dr. Shannon Cordon Reading Physician: Dr. Shannon Cordon Date of service : 01/28/2014 Indication/Symptoms: Palpitations [...] The patient was monitored with a cardiac school lunch monitor for 29 days through [facility]. Shannon Cordon MD 03/11/2014 4:26 PM Procedure Note Lizet Guy - 03/11/2014 4:25 PM CST [facility] CARDIOLOGY MOBILE CARDIAC TELEMETRY MONITORING ? Pts name: Kenji Camara : 1960 Ordering Physician: Dr. Shannon Cordon Reading Physician: Dr. Shannon Cordon Date of service : 01/28/2014 Indication/Symptoms: Palpitations [...] The patient was monitored with a cardiac school lunch monitor for 29 daysthrough [facility]. Shannon Cordon MD 03/11/2014 4:26 PM Shannon Cordon MD CARDIAC SERVICES ORDERABLES [facility] RESULT SCAN * HOLTER MONITOR (02/09/2014 12:32 PM VARNISH MAKER) Narrative M RESULT SCAN - 02/09/2014 12:32 PM VARNISH MAKER Shannon Cordon MD ? 02/09/2014 12:32 PM [facility] [place] [address] [place] [address] Patient Information Patient Name: ??Kenji Camara Gender: ??male : 1960 Duration: ??47:34 Hookup Date: ?? 01/26/2014 Indications: ??palpitations Holter Report Summary Total QRS Complexes: 201154 ? Ventricular Ectopics: ? 1149 ? Supraventricular [...] Interpretation Unremarkable Holter monitor( details above) Shannon Cordon MD Procedure Note MalenaNileshLizet M - 01/31/2014 3:15 PM CST [facility] [place] [address] [place], [place] [id number] Patient Information Patient Name: Kenji Camara Gender: male : 1960 Duration: 47:34 Hookup Date: 01/26/2014 Indications: palpitations Holter Report Summary Total QRS Complexes: 289481 Ventricular Ectopics: 1149 Supraventricular Ectopics: 12 Heart [...] Interpretation Unremarkable Holter monitor( details above) Shannon Cordon MD Shannon Cordon MD CARDIAC SERVICES ORDERABLES [facility] RESULT SCAN documented in this encounter Visit Diagnoses Diagnosis Palpitations- Primary Palpitations- Primary Palpitations- Primary documented in this encounter Care Teams Heel Cutter Relationship Specialty Start Date End Date Ten Umanzor provider retired [id number] PCP - General 04/10/11 09/06/14 Stephanie Prasad, RN [address] [facility] [address] [place] [address] Eclectic Doctor 10/06/13 documented as of this encounter
--- OUTSIDE RECORDS SUMMARY | 2024-03-07 21:57 | XMS_ITS | Encounter Summary ---
Author Organization [facility] Address [address] [facility] [place] [address] Care Team Providers Care Environmental Studies Professor Name Role Phone Stephanie Prasad RN Unavailable [phone] Lan Bragg DO Unavailable Elias Mayorga MD Primary Care Provider [phone] Reason for Visit * Reason Comments Follow-up Pt here today for a follow up visit regarding Aflutter s/p ablation (x2). Pt is on Flecainide 50mg bid. He was also implanted with a Loop recorder on 09/10/14. Pt has been having palpitations as of today and has been doing manual records. He has been feeling well up til today. Episodes woke him up this morning. Encounter Details Date Type Department Care Team (Late st Contact Info) Description 11/07/2014 3:15 PM CDT Office Visit [facility] [address] [phone] Shannon Cordon MD [address] [facility] [address] [place] [address] Paroxysmal atrial fibrillation 11/07/14 seen on loop recorder (Primary Dx); Typical atrial flutter (HCC); S/P ablation of atrial flutter; Chronic anticoagulation; Encounter for monitoring flecainide therapy Social History Tobacco Use Types Packs/Day Years [...] Sign Reading Time Taken Comments Blood Pressure 131/74 11/07/2014 3:10 PM CDT Pulse 86 11/07/2014 3:10 PM CDT Temperature - - Respiratory Rate - - Oxygen Saturation - - Inhaled Oxygen Concentration - - Weight 78 kg (172 lb) 11/07/2014 3:10 PM CDT Height 172.7 cm (5' 8 ) 11/07/2014 3:10 PM CDT Body Mass Index 26.15 11/07/2014 3:10 PM CDT documented in this encounter Functional [...] Progress Notes * Shannon Cordon MD - 11/10/2014 9:19 PM CDT ELECTROPHYSIOLOGY OFFICE VISIT 11/07/2014 Kenji Camara 1960 53 y[address]o. male [id number] Elias Mayorga (General) REASON FOR VISIT/CHIEF COMPLAINT Follow up of the following medical problems Hx of atrial flutter s/p ablation S/p repeat EP study with no inducible arrhythmia besides AF Flecainide therapy Current anticoagulation therapy DVT HPI This is patient's first visit since he had a loop recorder implanted to screen for spontaneous AF. Patient had felt wall since last visit until this morning when he woke up with palpitations and hashad several episodes of a racing heart beat this morning already. I interrogated his ILR and it revealed paroxysmal AF. He is back in sinus rhythm now. No SOB, no orthopnea, no PND, no syncope, no chest pain. No bleeding from anticoagulation. CURRENT MEDS Outpatient Prescriptions Marked as Taking for the 9/14/15 encounter (Office Visit) with Shannon Cordon MD Medication Sig ??? ELIQUIS 5 MG tablet TAKE 1 TABLET BY MOUTH TWICE DAILY ??? rosuvastatin (CRESTOR) 10 MG tablet Take 10 mg by mouth at bedtime ??? flecainide (TAMBOCOR) 50 MG tablet TAKE 1 TABLET BY MOUTH TWICE DAILY SYSTEMIC REVIEW No fever Vitals: 11/07/14 1510 BP: 131/74 Pulse: 86 Weight: 78.019 kg (172 lb) GENERAL- Comfortable , No distress CVS [...] nl mood MUSCULOSKELETAL - nl gait DATA ILR was interrogated and interpreted by me AF- max HR in the 180-190s ASSESSMENT Newly diagnosed paroxysmal AF - 11/07/14 Hx of atrial flutter s/p ablation S/p repeat EP study with no inducible arrhythmia besides AF Flecainide therapy Current anticoagulation therapy DVT PLAN Increase flecainide to 100mg BID Prefers not to try another medications at this time. We briefly discussed AF ablation. He has been reading about it but not inclined to have that done at this time. Continue anticoagulation It was a pleasure attending to Kenji Camara today. Thank you for the opportunity to participate in his care. Shannon Cordon M.D. Cardiac Lye Bath Operator [facility] [place] [phone] (office) [phone] (pager) documented in this encounter Plan of Treatment Upcoming Encounters Date Type Department Care Team (Late st Contact Info) Description 03/22/2024 9:00 AM CONFERENCE CENTER COORDINATOR Office Visit [facility] - Ophthalmology [address] [place] [phone] Ernesto Hawkins MD [address] [place] [address] documented as of this encounter Procedures Procedure Name Priority Date/Time Associated Diagnosis Comments ILR DEVICE INTERROGATION Routine 11/07/2014 Paroxysmal atrial fibrillation 11/07/14 seen on loop recorder documented in this encounter Results * ILR DEVICE INTERROGATION (11/07/2014) Shannon Cordon MD CARDIAC SERVICES ORDERABLES [facility] RESULT SCAN documented in this encounter Visit Diagnoses Diagnosis Paroxysmal atrial fibrillation 11/07/14 seen on loop recorder- Primary Atrial fibrillation Typical atrial flutter (HCC) Atrial flutter S/P ablation of atrial flutter Other postprocedural status Chronic anticoagulation Encounter for long-term (current) use of anticoagulants Encounter for monitoring flecainide therapy Encounter for therapeutic drug monitoring documented in this encounter Care Teams Environmental Studies Professor Relationship Specialty Start Date End Date Elias Mayorga MD [address] [facility] [address] [place] [address] PCP - General Internal Medicine 09/07/14 Stephanie Prasad RN [address] [facility] [address] [place] [address] Medical Transport Specialist 10/06/13 Lan Bragg DO [address] [facility] [address] [place] [address] Orthopedic Surgery 06/02/14 documented as of this encounter
--- OUTSIDE RECORDS SUMMARY | 2024-03-07 21:57 | XMS_ITS | Encounter Summary ---
Author Organization [facility] Address [address] [place] [address] Care Team Providers Care Mixer Lever Operator Name Role Phone Ten Umanzor Primary Care Provider Stephanie Patterson RN Unavailable [phone] Reason for Visit * Reason Onset Date Comments Concerns 05/25/2014 Encounter Details Date Type Department Care Team (Late st Contact Info) Description 05/25/2014 Telephone [facility] Heart [facility] Vascular Care [address] [place] [phone] [place] [address] [phone] Concerns Social History Tobacco Use Types Packs/Day Years [...] encounter Miscellaneous Notes * Telephone Encounter - Leoncio Gomez MA - 05/26/2014 4:21 PM CDT Left detailed message on recorder * Telephone Encounter - Elva Bolden - 05/26/2014 11:01 AM CDT Per AN, can take anything over the counter that doesn't have sudafed in it. Try Robitussin AC. * Telephone Encounter - Evangelina Banegas - 05/25/2014 2:34 PM CDT Patient has had a persistent cough for the last 5 days. What can he take that would stop the coughing that he can buy OTC? Not taking the Fleconide like he should regularly. Please call him back. documented in this encounter Plan of Treatment Upcoming Encounters Date Type Department Care Team (Late st Contact Info) Description 03/22/2024 9:00 AM DIRECTOR PATIENT FINANCIAL SERVICES Office Visit [facility] - Ophthalmology [address] [place] [phone] Ernesto Hawkins MD [address] [place] [phone] documented as of this encounter Visit Diagnoses Not on filedocumented in this encounter Care Teams Mixer Lever Operator Relationship Specialty Start Date End Date Ten Umanzor provider retired [id number] PCP - General 04/10/11 09/06/14 Stephanie Prasad, RN [address] [facility] [address] [place] [address] Masseur/Masseuse 10/06/13 documented as of this encounter
--- OUTSIDE RECORDS SUMMARY | 2024-03-07 21:57 | XMS_ITS | Encounter Summary ---
Author Organization [facility] Address [address] [facility] [place] [address] Care Team Providers Care First Sampler Name Role Phone Ten Umanzor Primary Care Provider Stephanie Patterson RN Unavailable Lan Bragg DO Unavailable Reason for Visit * Reason Comments Follow-up Pt here today for a follow up visit regarding abn heart beats/palpitations. Encounter Details Date Type Department Care Team (Late st Contact Info) Description 08/22/2014 8:45 AM CDT Office Visit [facility] [address] [place] [address] Shannon Cordon MD [address] [address] Typical atrial flutter (HCC) (Primary Dx); SVT (supraventricular tachycardia); S/P ablation of atrial flutter; Chronic anticoagulation; [...] Sign Reading Time Taken Comments Blood Pressure 129/76 08/22/2014 9:04 AM CDT Pulse 64 08/22/2014 9:04 AM CDT Temperature - - Respiratory Rate - - Oxygen Saturation - - Inhaled Oxygen Concentration - - Weight 78 kg (172 lb) 08/22/2014 9:04 AM CDT Height 172.7 cm (5' 8 ) 08/22/2014 9:04 AM CDT Body Mass Index 26.15 08/22/2014 9:04 AM CDT documented in this encounter Functional [...] Progress Notes * Shannon Cordon MD - 08/22/2014 9:11 AM CDT ELECTROPHYSIOLOGY OFFICE VISIT 08/22/2014 Kejni Camara 1960 53 y[address] male [address] Ten Umanzor [place]: [place] [address] [place] [address] [place] [address] REASON FOR VISIT/CHIEF COMPLAINT Follow up of the following medical problems Hx of atrial flutter s/p ablation SVT S/p repeat EP study with no inducible arrhythmia besides AF Flecainide therapy Current anticoagulation therapy Repeat EP study did not result in induction of any arrhythmia besides atrial fibrillation. The integrity of the flutter line was intact. No slow pathway, no accessory pathway. By process of elimination, SVT is most likely an atrial tachycardia. Given the easily inducible atrial fibrillation, it is possible that the atrial tachycardia is actually a pulmonary vein tachycardia. HPI He has been having what he thinks may be intermittent palpitations (not exactly sure). He describessome irregularities to those beats, some pauses, some rapid sequences. This lasts for about 30 minsin the mornings (but again he is not quite certain of what he feels). No lightheadedness, no syncope No bleeding from anticoagulants Tolerating flecainide CURRENT MEDS Outpatient Prescriptions Marked as Taking for the 08/22/14 encounter (Office Visit) with Shannon Cordon MD Medication Sig ??? apixaban (ELIQUIS) 5 MG tablet Take 1 Tab by mouth 2 times daily for 30 days. ??? flecainide (TAMBOCOR) 50 MG tablet TAKE 1 TABLET BY MOUTH TWICE DAILY SYSTEMIC REVIEW No chest pain, no orthopnea, no PND, no leg edema. Vitals: 08/22/14 0904 BP: 129/76 Pulse: 64 Weight: 78.019 kg (172 lb) GENERAL- Comfortable [...] nl mood MUSCULOSKELETAL - nl gait ASSESSMENT Hx of atrial flutter s/p ablation SVT S/p repeat EP study with no inducible arrhythmia besides AF Flecainide therapy Current anticoagulation therapy Repeat EP study did not result in induction of any arrhythmia besides atrial fibrillation. The integrity of the flutter line was intact. No slow pathway, no accessory pathway. By process of elimination, SVT is most likely an atrial tachycardia. Given the easily inducible atrial fibrillation, it is possible that the atrial tachycardia is actually a pulmonary vein tachycardia. PLAN Discontinue Eliquis Continue flecainide RTC 6 months Shannon Cordon M.D. Cardiac Global Coordinator [facility] [phone] (office) [phone] (pager) documented in this encounter Plan of Treatment Upcoming Encounters Date Type Department Care Team (Late st Contact Info) Description 03/22/2024 9:00 AM TELECOM ENGINEER Office Visit [facility] - Ophthalmology [address] [place] [phone] Ernesto Hawkins MD [address] [place] [phone] documented as of this encounter Visit Diagnoses Diagnosis Typical atrial flutter (HCC)- Primary Atrial flutter SVT (supraventricular tachycardia) (HCC) Other specified cardiac dysrhythmias S/P ablation of atrial flutter Other postprocedural status Chronic anticoagulation Encounter for long-term (current) use of anticoagulants Encounter for monitoring flecainide therapy Encounter for therapeutic drug monitoring documented in this encounter Care Teams First Sampler Relationship Specialty Start Date End Date Ten Umanzor provider retired [id number] PCP - General 04/10/11 09/06/14 Stephanie Prasad RN [address] [place] [address] Light Rail Transit Operator 10/06/13 Lan Bragg DO [address] [place] [address] Orthopedic Surgery 06/02/14 documented as of this encounter
--- OUTSIDE RECORDS SUMMARY | 2024-03-07 21:57 | XMS_ITS | Encounter Summary ---
Author Organization [facility] Address [address] [facility] [place] [address] Care Team Providers Care Mini Bar Attendant Name Role Phone Stephanie Prasad RN Unavailable [phone] Lan Bragg DO Unavailable Elias Mayorga MD Primary Care Provider [phone] Reason for Visit * Reason Comments Implantable Device Follow-Up Carelink Encounter Details Date Type Department Care Team (Latest Contact Info) Description 05/16/2015 8:55 AM CDT Procedure visit [facility] [address] [place] [phone] Paroxysmal atrial fibrillation 11/07/14 seen on loop recorder Social History Tobacco Use Types [...] this encounter Progress Notes * Molly Lozoya 05/17/2015 2:33 PM CDT Patient's Linq recorder was interrogated via home monitor with [employer]. Interrogation was reviewed by Dr Jn Cordon MD . Without anomalies detected. documented in this encounter Plan of Treatment Upcoming Encounters Date Type Department Care Team (Late st Contact Info) Description 03/22/2024 9:00 AM OPTICAL GLASS ETCHER Office Visit [facility] - Ophthalmology [address] [place] [phone] Ernesto Hawkins MD [facility] [place] [phone] documented as of this encounter Procedures Procedure Name Priority Date/Time Associated Diagnosis Comments ILR DEVICE INTERROGATION Routine 05/17/2015 Paroxysmal atrial fibrillation 11/07/14 seen on loop recorder documented in this encounter Results * ILR DEVICE INTERROGATION (05/17/2015) Shannon Cordon MD CARDIAC SERVICES ORDERABLES [facility] RESULT SCAN documented in this encounter Visit Diagnoses Diagnosis Paroxysmal atrial fibrillation 11/07/14 seen on loop recorder- Primary Atrial fibrillation documented in this encounter Care Teams Mini Bar Attendant Relationship Specialty Start Date End Date Elias Mayorga MD [address] [place] [address] PCP - General Internal Medicine 09/07/14 Stephanie Prasad RN [address] [place] [address] Skiver Box Toe 10/06/13 Lan Bragg DO [address] [place] [address] Orthopedic Surgery 06/02/14 documented as of this encounter
--- OUTSIDE RECORDS SUMMARY | 2024-03-07 21:57 | XMS_ITS | Encounter Summary ---
Author Organization [facility] Address [address] [facility] [place] [address] Care Team Providers Care Gas Leak Inspector Helper Name Role Phone Ten Umanzor Primary Care Provider Stephanie Patterson RN Unavailable [phone] Lan Bragg DO Unavailable Reason for Referral * Radiology Services - Closed Specialty Diagnoses / Procedures Referred By Rosa espinosa Referred To Contact Diagnoses Follow up Procedures VAS LEFT VENOUS DUPLEX Elias Justice MD [address] [place] [address] Referral ID Status Reason Start Date Expiration Date Visits Re quested Visits Authorized [id number] Closed 09/05/2014 03/04/2015 1 1 Reason for Visit * Radiology Services - Closed Specialty Diagnoses / Procedures Referred By Rosa espinosa Referred To Contact Diagnoses Follow up Procedures VAS LEFT VENOUS DUPLEX Elias Justice MD [address] [place] [address] Referral ID Status Reason Start Date Expiration Date Visits Re quested Visits Authorized [id number] Closed 09/05/2014 03/04/2015 1 1 Encounter Details Date Type Department Care Team (Latest Contact Info) Description 09/05/2014 8:30 AM CDT - 09/05/2014 11:59 PM CDT Hospital Encounter [facility] Vascular Services [id number] [place] [address], [address] [place] [address] [place] [address] [facility] [address] [place] [phone] Ten Umanzor provider retired [id number] Discharge Disposition: Home or Self Care Social [...] No 01/11/2014 documented as of this encounter Medications at Time of Discharge Medication Sig Dispensed Refills Start Date End Date apixaban (ELIQUIS) 5 MG tablet Take 1 Tab by mouth 2 times daily for 30 days. 60 Tab 0 07/25/2014 09/19/2014 flecainide (TAMBOCOR) 50 MG tablet TAKE 1 TABLET BY MOUTH TWICE DAILY 180 Tab 2 06/22/2014 03/27/2015 documented as of this encounter Plan of Treatment Upcoming Encounters Date Type Department Care Team (Late st Contact Info) Description 03/22/2024 9:00 AM PET CREMATORY WORKER Office Visit [facility] - Op[facility]mology [address] [place] [phone] Ernesto Hawkins MD [facility] [place] [phone] documented as of this encounter Procedures Procedure Name Priority Date/Time Associated Diagnosis Comments VAS LEFT VENOUS DUPLEX LE Routine 09/05/2014 9:17 AM CDT Follow up documented in this encounter Results * VAS LEFT VENOUS DUPLEX LE (09/05/2014 9:17 AM CDT) Anatomical Region Laterality Modality Lower Extremity, Upper Extremity Ultrasound 09/05/2014 7:58 AM CDT Narrative Procedure Note Terrance Marsh MD - 09/05/2014 [facility] [address], [address] [place] [address] Lower Extremity Venous Ultrasound Report Pat.Name: SERG CAMARA Pat.ID: [id number] St.Date: 09/05/2014 Exam Time: 7:58:00 AM Study Type:LE Venous Age: 10 1960,53Y Sex: MALE Sonogrphr: Anders Antoine RVT Pat. Stat.:Outpatient ICD - 9: Follow up [V67.9] CPT - 4: 93920 Reason for Study:Follow up DVT History / Clinical:Left calf DVT found 08/29/2014 Procedures:Lower Extremity Venous - Left Visit ID: [id number] SUMMARY: Subacute DVT left gastrocnemius vein without [...] Elias Mayorga MD VASCULAR LAB ORDERAB LES documented in this encounter Visit Diagnoses Diagnosis Follow up documented in this encounter Care Teams Gas Leak Inspector Helper Relationship Specialty Start Date End Date Ten Umanzor provider retired [id number] PCP - General 04/10/11 09/06/14 Stephanie Prasad RN [address] [place] [id number] Log Brander 10/06/13 Lan Bragg DO [address] [place] [address] Orthopedic Surgery 06/02/14 documented as of this encounter
--- OUTSIDE RECORDS SUMMARY | 2024-03-07 21:57 | XMS_ITS | Encounter Summary ---
Author Organization [facility] Address [address] [facility] [place] [address] Care Team Providers Care Inlayer Silver Name Role Phone Ten Umanzor Primary Care Provider Stephanie Patterson RN Unavailable [phone] Lan Bragg DO Unavailable Reason for Visit * Reason Onset Date Comments Question 06/21/2014 Encounter Details Date Type Department Care Team (Late st Contact Info) Description 06/21/2014 Telephone [facility] Heart & Vascular Care [address] [facility], [address] [address] [place] [address] [phone] Question Social History Tobacco Use Types Packs/Day [...] encounter Miscellaneous Notes * Telephone Encounter - Elva Bolden - 06/27/2014 2:05 PM CDT Pt had an EKG per Dr. Cordon. * Telephone Encounter - Leoncio Gomez MA - 06/21/2014 8:10 AM CDT Patient called and states that he has been having an irregular heart rate and he was informed by Dr. Tyson and Dr. Cordon that he can come to the office anytime for a ekg only the next time his symptoms occur. documented in this encounter Plan of Treatment Upcoming Encounters Date Type Department Care Team (Late st Contact Info) Description 03/22/2024 9:00 AM INSPECTOR AND SORTER Office Visit [facility] - [facility] [address] [place] [phone] Ernesto Hawkins MD [address] [place] [address] documented as of this encounter Visit Diagnoses Not on filedocumented in this encounter Care Teams Inlayer Silver Relationship Specialty Start Date End Date Ten Umanzor provider retired [id number] PCP - General 04/10/11 09/06/14 Stephanie Prasad RN [address] [facility] [address] [place] [address] Gasket Maker 10/06/13 Lan Bragg DO [address] [facility] [address] [place] [address] Orthopedic Surgery 06/02/14 documented as of this encounter
--- OUTSIDE RECORDS SUMMARY | 2024-03-07 21:57 | XMS_ITS | Encounter Summary ---
Author Organization [facility] Address [address] [facility] [place] [address] Care Team Providers Care International Organizer Name Role Phone Ten Umanzor Primary Care Provider Stephanie Patterson RN Unavailable [phone] Lan Bragg DO Unavailable Reason for Visit * Reason Onset Date Comments Forms 07/19/2014 Encounter Details Date Type Department Care Team (Late st Contact Info) Description 07/19/[address] [facility] Heart & Vascular Care [address] [place] [address] Shannon Cordon MD [address] [address] Forms Social History Tobacco Use Types Packs/Day Years [...] * Telephone Encounter - Isidra Dorsey - 07/22/2014 4:24 PM CDT Forms have been reviewed and signed by Dr. Cordon. I have faxed to [phone] with confirmationreceived. Original to patient copy to scan. * Telephone Encounter - Isidra Dorsey - 07/21/2014 9:04 AM CDT Forms received. Will fill out and place on Dr. Cordon's desk for review and signature. * Telephone Encounter - Ryan Parsons - 07/19/2014 3:55 PM CDT Pt called wanting to inform Isidra that she will be receiving forms from [facility] that needs to be completed. documented in this encounter Plan of Treatment Upcoming Encounters Date Type Department Care Team (Late st Contact Info) Description 03/22/2024 9:00 AM DANCE ARTIST Office Visit [facility] [address] [place] [address] Ernesto Hawkins MD [address] [place] [address] documented as of this encounter Visit Diagnoses Not on filedocumented in this encounter Care Teams International Organizer Relationship Specialty Start Date End Date Ten Umanzor provider retired [id number] PCP - General 04/10/11 09/06/14 Stephanie Prasad, RN [address] [facility] [address] [place] [address] Special Weapons And Tactics Officer 10/06/13 Lan Bragg DO [address] [facility] [address] [place] [address] Orthopedic Surgery 06/02/14 documented as of this encounter
--- OUTSIDE RECORDS SUMMARY | 2024-03-07 21:57 | XMS_ITS | Encounter Summary ---
Author Organization [facility] Address [address] [facility] [place] [address] Care Team Providers Care Literacy Specialist Name Role Phone Stephanie Prasad RN Unavailable [phone] Lan Bragg DO Unavailable Elias Mayorga MD Primary Care Provider [phone] Encounter Details Date Type Department Care Team (Late Contact Info) Description 03/27/2015 Orders Only [facility] Heart & Vascular Care [address] [place] [address] Ryan Parsons Social History Tobacco Use Types Packs/Day Years [...] No 01/11/2014 documented as of this encounter Plan of Treatment Upcoming Encounters Date Type Department Care Team (Late Contact Info) Description 03/22/2024 9:00 AM BEEF PLUCK TRIMMER Office Visit [facility] [address] [facility], [place] [phone] Ernesto Hawkins MD [address] [place] [phone] documented as of this encounter Visit Diagnoses Not on filedocumented in this encounter Care Teams Literacy Specialist Relationship Specialty Start Date End Date Elias Mayorga MD [address] [facility] [address] [place] [address] PCP - General Internal Medicine 09/07/14 Stephanie Prasad RN [address] [facility] [address] [place] [address] Staff Software Engineer 10/06/13 Lan Bragg DO [address] [facility] [address] [place] [address] Orthopedic Surgery 06/02/14 documented as of this encounter
--- OUTSIDE RECORDS SUMMARY | 2024-03-07 21:57 | XMS_ITS | Encounter Summary ---
Author Organization [facility] Address [address] [facility] [place] [address] Care Team Providers Care Farm Mechanic Apprentice Name Role Phone Stephanie Prasad RN Unavailable [phone] Lan Bragg DO Unavailable Elias Mayorga MD Primary Care Provider [phone] Reason for Visit * Reason Comments Implantable Device Follow-Up Carelink Encounter Details Date Type Department Care Team (Latest Contact Info) Description 03/14/2015 10:20 AM SUPERVISOR CURED MEATS Procedure visit [facility] Heart & Vascular Care [address] [place] [address] Typical atrial flutter (HCC) Social History Tobacco Use [...] encounter Progress Notes * Molly Lozoya - 03/15/2015 10:46 AM CST Patient's Linq recorder was interrogated via home monitor with [employer]. Interrogation was reviewed by Dr Jn Cordon MD . Without anomalies detected. RVISOR CURED MEATS documented in this encounter Plan of Treatment Upcoming Encounters Date Type Department Care Team (Late st Contact Info) Description 03/22/2024 9:00 AM SUPERVISOR CURED MEATS Office Visit [facility] [address] [place] [address] Ernesto Hawkins MD [facility] [place] [address] documented as of this encounter Procedures Procedure Name Priority Date/Time Associated Diagnosis Comments ILR DEVICE INTERROGATION Routine 03/14/2015 Typical atrial flutter (HCC) documented in this encounter Results * ILR DEVICE INTERROGATION (03/14/2015) Shannon Cordon MD CARDIAC SERVICES ORDERABLES NONSSM RESULT SCAN documented in this encounter Visit Diagnoses Diagnosis Typical atrial flutter (HCC)- Primary Atrial flutter documented in this encounter Care Teams Farm Mechanic Apprentice Relationship Specialty Start Date End Date Elias Mayorga MD [address] [place] [address] PCP - General Internal Medicine 09/07/14 Stephanie Prasad, RN [address] [place] [address] Black Studies Professor 10/06/13 Lan Bragg DO [address] [place] [address] Orthopedic Surgery 06/02/14 documented as of this encounter
--- OUTSIDE RECORDS SUMMARY | 2024-03-07 21:57 | XMS_ITS | Encounter Summary ---
Author Organization [facility] Address [address] [facility] [place] [address] Care Team Providers Care Grounds Maintenance Worker Name Role Phone Ten Umanzor Primary Care Provider Stephanie Patterson RN Unavailable [phone] Lan Bragg DO Unavailable Reason for Visit * Reason Comments Follow-up RV left hip/injectio n 06/27/14/pain wakes him up Encounter Details Date Type Department Care Team (Late st Contact Info) Description 07/25/2014 12:40 PM CDT Office Visit [facility] Orthopedics [address] [facility] [place] [address] [place] [address] [place] [address] [address] Left hip pain (Primary Dx); Trochanteric bursitis of left hip Social History Tobacco Use Types Packs/Day Years [...] as of this encounter Progress Notes * Jazmyne Lindsey RN - 07/25/2014 12:22 PM CDT RV left hip/injection 06/27/14/pain wakes him up left hip injection given. documented in this encounter H&P Notes * Lan Bragg DO - 07/26/2014 12:20 PM CDT DATE OF SERVICE: 07/25/2014 EXAMINATION: He has continued trochanteric bursitis. TREATMENT: Given peritendinous injection 80 mg Depo-Medrol. Return to the office in 1 month's time. Lan Bragg D.O. Electronically Signed 07/26/2014 13:48:04 TJW/MedQ #: [id number] documented in this encounter Plan of Treatment Upcoming Encounters Date Type Department Care Team (Late st Contact Info) Description 03/22/2024 9:00 AM FLAT FOLDER Office Visit [facility] - Ophthalmology [address] [place] [address] Ernesto Hawkins MD [address] [place] [address] documented as of this encounter Visit Diagnoses Diagnosis Left hip pain- Primary Pain in joint, pelvic region and thigh Trochanteric bursitis of left hip Enthesopathy of hip region documented in this encounter Administered Medications Administered Medications Medication Order MAR Action Action Date Dose Rate Site Methylprednlsolone 80mg Intraarticular Given 07/25/2014 1 mL 1 lower extre mity documented in this encounter Care Teams Grounds Maintenance Worker Relationship Specialty Start Date End Date [place], Ten P provider retired [id number] PCP - General 04/10/11 09/06/14 Stephanie Prasad RN [address] [place] [phone] Disk And Tape Machine Tender 10/06/13 Lan Bragg DO [address] [place] [phone] Orthopedic Surgery 06/02/14 documented as of this encounter
--- OUTSIDE RECORDS SUMMARY | 2024-03-07 21:57 | XMS_ITS | Encounter Summary ---
Author Organization [facility] Address [address] [facility] [place] [address] Care Team Providers Care Sales Product Manager Name Role Phone Ten Umanzor Primary Care Provider Stephanie Patterson RN Unavailable [phone] Reason for Referral * Procedure - Closed Specialty Diagnoses / Procedures Referred By Contac t Referred To Contact Cardiology Diagnoses Atrial flutter (HCC) Procedures EKG 12-LEAD Shannon Cordon MD [address] [place] [address] Referral ID Status Reason Start Date Expiration Date Visits Re quested Visits Authorized [id number] Closed 04/18/2014 10/15/2014 1 1 EN CENTER MANAGER Reason for Visit * Reason Comments Follow-up Pt here today for a 3MOFU regarding Atrial Flutter s/p cardioversion, ablation and 30 day EVENT monitor. Pt is feeling well with no current complaints. Encounter Details Date Type Department Care Team (Late st Contact Info) Description 04/18/2014 8:15 AM GARDEN CENTER MANAGER Office Visit [facility] Heart & Vascular Care [address] [place] [address] Shannon Cordon MD [address] [place] [address] Atrial flutter (HCC) (Primary Dx); S/P ablation of atrial flutter; Encounter for monitoring flecainide therapy; Chronic anticoagulation [...] Sign Reading Time Taken Comments Blood Pressure 126/82 04/18/2014 8:38 AM GARDEN CENTER MANAGER Pulse 76 04/18/2014 8:38 AM GARDEN CENTER MANAGER Temperature - - Respiratory Rate - - Oxygen Saturation - - Inhaled Oxygen Concentration - - Weight 80.7 kg (178 lb) 04/18/2014 8:38 AM GARDEN CENTER MANAGER Height 172.7 cm (5' 8 ) 04/18/2014 8:38 AM GARDEN CENTER MANAGER Body Mass Index 27.06 04/18/2014 8:38 AM GARDEN CENTER MANAGER documented in this encounter Functional Status Functional [...] No 01/11/2014 documented as of this encounter Patient Instructions * Patient Instructions* Shannon Cordon MD - 04/18/2014 9:05 AM GARDEN CENTER MANAGER Follow up in 3 months Discontinue Xarelto and flecainide EN CENTER MANAGER documented in this encounter Progress Notes * Shannon Cordon MD - 04/18/2014 9:05 AM CST ELECTROPHYSIOLOGY OFFICE VISIT 04/18/2014 Kenji Camara 1960 53 y.o. male [address] Ten Umanzor [place]: [place] [address] [place] [address] REASON FOR VISIT/CHIEF COMPLAINT Follow up of the following medical problems S/p Atrial flutter ablation 01/11/2014 Frequent APCs Flecainide therapy Chronic anticoagulation with Xarelto HPI Patient had a holter monitor post ablation that was essentially unremarkable. Since then he has had 2 very brief episodes of palpitations which were not bothersome He denies shortness of breath, bleeding or side effects from meds CURRENT MEDS Outpatient Prescriptions Marked as Taking for the 04/18/14 encounter (Office Visit) with Shannon Cordon MD Medication Sig ??? rivaroxaban (XARELTO) 20 MG tablet Take 1 Tab by mouth once daily for 90 days. ??? flecainide (TAMBOCOR) 50 MG tablet Take 1 Tab by mouth 2 times daily. SYSTEMIC REVIEW ? Sinus infections Vitals: 04/18/14 0838 BP: 126/82 Pulse: 76 Weight: 80.74 kg (178 lb) GENERAL- Comfortable , No distress CVS - normal pulse , no JVD, S1 S2, no murmur, no leg edema LUNGS - Unlabored breathing, lungs clear , no wheezes/crackles/rhonchi. DATA EKG done today - normal Sinus rhythm 69bpm, NJ 148ms, no preexcitation, normal QRS progression and axis, QTc 407ms ASSESSMENT S/p Atrial flutter ablation 01/11/2014 Frequent APCs Flecainide therapy Chronic anticoagulation with Xarelto PLAN Discontinue flecainide Discontinue Xarelto Follow up in 3 months. Shannon Cordon M.D. Cardiac Multiple Coil [facility] [place] [phone] (office) [phone] (pager) EN CENTER MANAGER documented in this encounter Plan of Treatment Upcoming Encounters Date Type Department Care Team (Late st Contact Info) Description 03/22/2024 9:00 AM GARDEN CENTER MANAGER Office Visit [facility] Op[facility]mology [address] [place] [phone] Ernesto Hawkins MD [address] [place] [phone] documented as of this encounter Procedures Procedure Name Priority Date/Time Associated Diagnosis Comments EKG 12-LEAD Routine 04/18/2014 Atrial flutter (HCC) documented in this encounter Results * EKG 12-LEAD (04/18/2014) Shannon Cordon MD ECG ORDERABLES SS RESULT SCAN documented in this encounter Visit Diagnoses Diagnosis Atrial flutter (HCC)- Primary Atrial flutter S/P ablation of atrial flutter Other postprocedural status Encounter for monitoring flecainide therapy Encounter for therapeutic drug monitoring Chronic anticoagulation Encounter for long-term (current) use of anticoagulants documented in this encounter Care Teams Sales Product Manager Relationship Specialty Start Date End Date Ten Umanzor provider retired [id number] PCP - General 04/10/11 09/06/14 Stephanie Prasad RN [address] [facility] [address] [place] [address] Neurology Nurse 10/06/13 documented as of this encounter
--- OUTSIDE RECORDS SUMMARY | 2024-03-07 21:57 | XMS_ITS | Encounter Summary ---
Author Organization [facility] Address [address] [place] [address] Care Team Providers Care Program Paraprofessional Name Role Phone Ten Umanzor Primary Care Provider Stephanie Patterson RN Unavailable Reason for Visit * Reason Comments IRREGULAR HEART BEAT Encounter Details Date Type Department Care Team ([facility] Contact Info) Description 04/21/2014 2:15 PM STEEL RULE INSPECTOR Office Visit [facility] Heart & Vascular Care [address] [place] [address] [place] [address] [phone] Atrial flutter (HCC) (Primary Dx); S/P ablation of atrial flutter Social History [...] Sign Reading Time Taken Comments Blood Pressure 123/78 04/21/2014 2:42 PM STEEL RULE INSPECTOR Pulse 80 04/21/2014 2:42 PM STEEL RULE INSPECTOR Temperature - - Respiratory Rate 16 04/21/2014 2:42 PM STEEL RULE INSPECTOR Oxygen Saturation - - Inhaled Oxygen Concentration - - Weight 79.4 kg (175 lb) 04/21/2014 2:42 PM STEEL RULE INSPECTOR Height 172.7 cm (5' 8 ) 04/21/2014 2:42 PM STEEL RULE INSPECTOR Body Mass Index 26.61 04/21/2014 2:42 PM STEEL RULE INSPECTOR documented in this encounter Functional Status Functional [...] as of this encounter Progress Notes * Olvin Tyson MD - 04/21/2014 2:44 PM CST [facility] Heart [place] Olvin Tyson MD, FACC REASON FOR VISIT: 4 mo follow up PROBLEM LIST: Patient Active Problem List Diagnosis ??? Atrial flutter ??? S/P ablation of atrial flutter ??? Chronic anticoagulation ??? Encounter for monitoring flecainide therapy SUBJECTIVE: Kenji Negronrashidmely 53 y.o. male is here for: IRREGULAR HEART BEAT No CP No SOB No palptns/dizziness/loc ROS: Review of Systems - General ROS: negative Psychological ROS: negative Ophthalmic ROS: negative ENT ROS: negative Hematological and Lymphatic ROS: negative Endocrine ROS: negative Respiratory ROS: no cough, shortness of breath, or wheezing Cardiovascular ROS: no chest pain or dyspnea on exertion Gastrointestinal ROS: no abdominal pain, change in bowel habits, or black or bloody stools Genito-Urinary ROS: no dysuria, trouble voiding, or hematuria Musculoskeletal ROS: negative Neurological ROS: no TIA or stroke symptoms I have reviewed and agree with all of the above entries. SOCIAL HISTORY: History Social History ??? Marital Status: Spouse Name: N/A Number of Children: N/A ??? Years of Education: N/A Social History Main Topics ??? Smoking status: Never Smoker ??? Smokeless tobacco: Not on file ??? Alcohol Use: 0.5 oz/week 1 Cans of beer per week ??? Drug Use: No ??? Sexual Activity: Not on file Other Topics Concern ??? Not on file Social History Narrative FAMILY HISTORY: Family History Problem Relation Age of Onset ??? Hypertension Mother MEDICAL HISTORY: Past Medical History Diagnosis Date ??? Atrial flutter 12/30/2013 I have reviewed and agree with all of the above entries. SURGICAL HISTORY: Past Surgical History Procedure Laterality Date ??? Shoulder arthroscopy ??? Carpal tunnel surgery ??? Hernia repair, inguinal 04/11/11 HOME MEDICATIONS: Prior to Admission medications Medication Sig Start Date End Date Taking? Authorizing Provider B Complex-Folic Acid (B COMPLEX-VITAMIN B12) TABS Take 1 tablet by mouth once daily. Historical Provider, glucosamine-chondroitin (GLUCOSAMINE CHONDR COMPLEX) 500-400 MG capsule Take 1 capsule by mouth once daily. Historical Provider, MAGNESIUM PO Take 1 tablet by mouth once daily. Patient is unsure of dosage. Historical Provider, EXAMINATION: VITALS: Vitals: 04/21/14 1442 BP: 123/78 Pulse: 80 Resp: 16 Weight: 79.379 kg (175 lb) Skin: Warm and dry. JV: No Carotid Bruit: No Chest: Breath sounds are mildly decreased Heart: normal rate and regular rhythm. 1-2/6 SM Abdomen: soft Extremities: negative LABS: Reviewed Recent Labs Component Name 01/04/14 1734 10/07/13 0406 10/06/13 0923 WBC 5.2 4.9 5.8 HGB 14.8 14.6 17.4 HCT 43.6 42.2 49.0 PLTCOUNT 302 230 296 Recent Labs Component Name 10/07/13 0406 10/06/13 1723 10/06/13 0923 TROPONIN <0.015 <0.015 <0.015 No results for input(s): MYOGLOBIN in the last 58894 hours. Recent Labs Component Name 01/04/14 1734 10/07/13 0406 10/06/13 0923 SODIUM 143 140 139 POTASSIUM 4.6 3.8 4.2 BUN 18 14 15 CREATININE 1.02 0.72 0.91 Recent Labs Component Name 10/18/13 0841 CHOL 188 TRIG 115 HDL 44 LDLCALC 121 No results for input(s): BNP in the last 38765 hours. Recent Labs Component Name 01/04/14 1734 INR 1.2 Recent Labs Component Name 10/18/13 0841 TSH 1.79 CMP: Recent Labs Component Name 01/04/14 1734 10/06/13 0923 GLUCOSE 91 105 BUN 18 15 CREATININE 1.02 0.91 EGFR 82 >60 SODIUM 143 139 POTASSIUM 4.6 4.2 CHLORIDE 103 108* CO2 24 24 CALCIUM 9.4 9.1 AST -- -- 25 ALBUMIN -- -- 4.1 ALT -- -- 39 = values in this interval not displayed. Patient Active Problem List Diagnosis ??? Atrial flutter ??? S/P ablation of atrial flutter ??? Chronic anticoagulation ??? Encounter for monitoring flecainide therapy IMPRESSIONS/PLAN/RECOMMENDATIONS: 1. Palpitations resolved 2. Off Flecainide and Xarelto 3. Contd Cv RX Risk modification addressed with patient Kenji Camara has been advised to let me know if patient has recurrent chest pain,dyspnea,syncope or palpitations. Follow up : 6 Months Ten Umanzor, thank you for allowing us to participate in the care of this patient. Closing Remark: I have reviewed and agree with all of the above entries. L RULE INSPECTOR documented in this encounter Plan of Treatment Upcoming Encounters Date Type Department Care Team (Late st Contact Info) Description 03/22/2024 9:00 AM STEEL RULE INSPECTOR Office Visit [facility] - Ophthalmology [address] [place] [phone] Ernesto Hawkins MD [facility] [place] [phone] documented as of this encounter Visit Diagnoses Diagnosis Atrial flutter (HCC)- Primary Atrial flutter S/P ablation of atrial flutter Other postprocedural status documented in this encounter Care Teams Program Paraprofessional Relationship Specialty Start Date End Date Ten Umanzor provider retired [id number] PCP - General 04/10/11 09/06/14 Stephanie Prasad, RN [address] [facility] [address] [place] [address] Instrument And Control Service Person 10/06/13 documented as of this encounter
--- OUTSIDE RECORDS SUMMARY | 2024-03-07 21:57 | XMS_ITS | Encounter Summary ---
Author Organization [facility] Address [address] [place] [address] Care Team Providers Care Management Sme Name Role Phone Ten Umanzor Primary Care Provider Stephanie Patterson RN Unavailable Reason for Visit * Reason Onset Date Comments Medication Issue 11/15/2013 Encounter Details Date Type Department Care Team (Late st Contact Info) Description 11/15/2013 Telephone [facility] Heart & Vascular Care [address] [place] [address] [phone] [place] [phone] [phone] Medication Issue Social History Tobacco Use Types Packs/Day Years [...] or have serious hearing difficult y? No 10/06/2013 Is person blind or have serious difficulty seein g? No 10/06/2013 Does person have serious dif ficulty walking/climbing stairs? No 10/06/2013 Does person have difficulty dressing/bathing? No 10/06/2013 Does person have difficulty doing errands alone? No 10/06/2013 Cognitive Status Response Date of Assessm ent Does person have difficulty concentrating/remembering/making decisions? No 10/06/2013 documented as of this encounter Miscellaneous Notes * Telephone Encounter - Isidra Dorsey - 12/13/2013 10:06 AM CDT Appointment was set up with [facility] at time listed below but after speaking with pt, he preferred to move it back a week due to a schedule conflict on his end. Procedure is now planned on 01/11/14 @8:00 [facility]. See documentation for further details. * Telephone Encounter - Isidra Dorsey - 12/09/2013 4:50 PM CDT I spoke with pt. He informed me of the following information: - He was started on Diltiazem upon last hospital encounter. Shortly after taking he started noticing Sx of severe joint pain (hips, knees), pounding HR at hs, and irregular heart beats. Pt has currently DC this medication. It has been about 2 weeks since last dose. He also informed me that at one point in time Dr. Umanzor perscribed him Diltiazem 30mg x4 daily and he has used this for relief at least three separate times. Additional Sx include occasional SOB and dizziness. I have review Dr. Cordon's current Case schedule and have tentatively scheduled Mr. Camara for01/04/14 @ 11:00-1130 [facility]. I have yet to call [facility] to confirm this date and time availability. Will call tomorrow and inform pt of details. Note: Pt was seen by Dr. Tyson today in office. * Telephone Encounter - Ryan Parsons - 12/09/2013 3:48 PM CDT Pt called to speak with Isidra. Pt states that he saw needs to be scheduled for a ablation with for atrial flutter. Please advise. Pt's number is . * Telephone Encounter - Rachael Juarez - 11/18/2013 10:41 AM CDT Pt information was sent over to Dr.Bam nurse Miner Pt should receive call for appt date and time. * Telephone Encounter - Elva Bolden - 11/17/2013 2:55 PM CDT Per AN, will defer to Dr. Cordon. Pt is scheduled to see EP for possible ablation. * Telephone Encounter - Evangelina Banegas - 11/16/2013 11:04 AM CDT Patient called to check if there is a response to his call from yesterday regarding his Diltiazem 180 mg. Would appreciate a call back today if possible. * Telephone Encounter - Leoncio Gomez MA - 11/15/2013 9:41 AM CDT Patient called and states that he has been having problems with diltiazem 180 mg. Pt complains thathe had a irregular heart beat and a pounding heart beat over the weekend. Mr. Camara has stoppedtaking the medication his last dose was on 11-13-13. Since he has stopped the medication he does nothave the same symptoms. documented in this encounter Plan of Treatment Upcoming Encounters Date Type Department Care Team (Late st Contact Info) Description 03/22/2024 9:00 AM MEDIA ANALYST Office Visit [facility] - Ophthalmology [address] [place] [phone] Ernesto Hawkins MD [address] [place] [phone] documented as of this encounter Visit Diagnoses Not on filedocumented in this encounter Care Teams Management Sme Relationship Specialty Start Date End Date ErnaTen Manuel provider retired [id number] PCP - General 04/10/11 09/06/14 Stephanie Prasad, RN [address] [facility] [address] [place] [address] Cherry Picker Operator 10/06/13 documented as of this encounter
--- OUTSIDE RECORDS SUMMARY | 2024-03-07 21:57 | XMS_ITS | Encounter Summary ---
Author Organization [facility] Address [address] [facility] [place] [address] Care Team Providers Care Pharmacy Cashier Name Role Phone Stephanie Prasad RN Unavailable [phone] Lan Bragg DO Unavailable Elias Mayorga MD Primary Care Provider [phone] Reason for Visit * Auth/Cert - Closed Specialty Diagnoses / Procedures Referred By Rosa espinosa Referred To Contact Referral ID Status Reason Start Date Expiration Date Visits Re quested Visits Authorized [id number] Closed 1 1 Encounter Details Date Type Department Care Team (Latest Contact Info) Description 09/07/2014 12:18 PM CDT - 09/07/2014 3:28 PM CDT Hospital Encounter [facility] - Cardiac Rug Cutter Helper [address] [place] [phone] Shannon Cordon MD [address] [address] Cardiac Catheterization Discharge Disposition: Home or Self Care Social [...] Sign Reading Time Taken Comments Blood Pressure 128/77 09/07/2014 3:00 PM CDT Pulse 73 09/07/2014 3:15 PM CDT Temperature 37.4 ??C (99.4 ??F) 09/07/2014 3:00 PM CD T Respiratory Rate 15 09/07/2014 3:15 PM CDT Oxygen Saturation 97% 09/07/2014 3:15 PM CDT Inhaled Oxygen Concentration - - Weight 78 kg (172 lb) 09/07/2014 12:39 PM CDT Height 170.2 cm (5' 7 ) 09/07/2014 12:39 PM CDT Body Mass Index 26.94 09/07/2014 12:39 PM CDT documented in this encounter Functional [...] 1 (one) tablet by mouth at bedtime apixaban (ELIQUIS) 5 MG tablet Take 5 mg by mouth 2 times daily 09/19/2014 apixaban (ELIQUIS) 5 MG tablet Take 1 Tab by mouth 2 times daily for 30 days. 60 Tab 0 07/25/2014 09/19/2014 flecainide (TAMBOCOR) 50 MG tablet TAKE 1 TABLET BY MOUTH TWICE DAILY 180 Tab 2 06/22/2014 03/27/2015 documented as of this encounter H&P Notes * Shannon Cordon MD - 09/07/2014 2:12 PM CDT ELECTROPHYSIOLOGY H AND P 09/07/2014 Kenji Camara 1960 53 y.o. male [id number] PCP- Elias Mayorga REASON FOR ADMISSION Loop recorder implantation HISTORY OF PRESENT ILLNESS Hx of atrial flutter s/p ablation SVT S/p repeat EP study with no inducible arrhythmia besides AF Flecainide therapy Current anticoagulation therapy Had a recent DVT so we planned to implant a loop recorder to detect occult AF. PAST MEDICAL AND SURGICAL HISTORY: Past Medical History Diagnosis Date ??? Atrial flutter 12/30/2013 ??? S/P ablation of atrial flutter 01/11/14 [facility]; Successful and uncomplicated ablation of typical atrial flutter circuit, ??? DVT (deep venous thrombosis) left leg upper calf Past Surgical History Procedure Laterality Date ??? Shoulder arthroscopy ??? Carpal tunnel surgery ??? Hernia repair, inguinal 04/11/11 ??? Ablation for atrial fibrillation/flutter [facility]11[facility]14 [facility]; Successful and uncomplicated ablation of typical atrial flutter circuit, MEDICATION: No current facility-administered medications on file prior to encounter. Current Outpatient Prescriptions on File Prior to Encounter Medication Sig Dispense Refill ??? flecainide (TAMBOCOR) 50 MG tablet TAKE 1 TABLET BY MOUTH TWICE DAILY 180 Tab 2 ALLERGIES Allergies Allergen Reactions ??? Naproxen GI Discomfort FAMILY HISTORY Family History Problem Relation Age of Onset ??? Hypertension Mother SOCIAL HISTORY History Substance Use Topics ??? Smoking status: Never Smoker ??? Smokeless tobacco: Not on file ??? Alcohol Use: 0.5 oz/week 1 Cans of beer per week SYSTEMIC REVIEW 10 point review of systems was negative except as stated above/ HPI EXAMINATION BP 136/86 mmHg Pulse 66 Temp(Src) 97.8 ??F Resp 17 Wt 78.019 kg (172 lb) BMI 26.93 kg/m2 GENERAL- Comfortable , No distress CVS - [...] affect, nl mood MUSCULOSKELETAL - nl gait LABS: Recent Labs Component Name 07/12/14 0756 01/04/14 1734 WBC 4.2 5.2 HGB 15.4 14.8 HCT 44.9 43.6 PLTCOUNT 296 302 Recent Labs Component Name 07/12/14 0756 10/06/13 0923 SODIUM 140 139 POTASSIUM 4.8 4.2 CHLORIDE 102 108* CO2 21 24 BUN 13 15 CREATININE 0.96 0.91 GLUCOSE 89 105 CALCIUM 9.6 9.1 ALBUMIN -- -- 4.1 ALKPHOS -- -- 63 ALT -- -- 39 AST -- -- 25 TBIL -- -- 0.7 TPROT -- -- 7.6 EGFR 89 >60 = values in this interval not displayed. No results for input(s): MAGMGDL in the last 55605 hours. Recent Labs Component Name 10/18/13 0841 TSH 1.79 No results for input(s): BNP in the last 29695 hours. Recent Labs Component Name 10/07/13 0406 10/06/13 1723 10/06/13 0923 TROPONIN <0.015 <0.015 <0.015 Recent Labs Component Name 01/04/14 1734 INR 1.2 No results for input(s): CKMBNGML in the last 53183 hours. ASSESSMENT Hx of atrial flutter s/p ablation SVT S/p repeat EP study with no inducible arrhythmia besides AF Flecainide therapy Current anticoagulation therapy PLAN Proceed with loop recorder It was a pleasure attending to Kenji Camara today. Shannon Cordon M.D. Cardiac Ios Programmer [facility] [place] [phone] (office) [phone] (pager) documented in this encounter Procedure Notes * Shannon Cordon MD - 09/07/2014 9:25 PM CDTAssociated Order(s): CARDIAC CATH CONSULT Procedure(s): [place] IMPLANT CARD EVENT RECRD,PT-ACT ILR DEVICE Implantable Loop recorder implantation 09/07/2014 Patient Information Name: Kenji Camara Date of : 1960 Age: 53 y.o. Referring Physician: Elias Mayorga Ios Programmer: Shannon Cordon INDICATION Hx of atrial flutter s/p ablation [...] loop recorder to detect occult spontaneous AF. Implantation Following pre-procedural re-evaluation of patient and [...] Wound was dressed with guaze and tegaderm. HARDWARE Device Model/Brand Serial Implant Location Name Number Date [employer] [id number] 09/07/2014 Left parasternal Reveal LINQ PARAMETER INTERVAL DURATION TACHY 171b/m 24 beats CANDACE 40b/m 8 beats ASYSTOLE 3.0 s AF Episodes >=20mins PROCEDURES DONE 1) Implantable loop recorder implantation [id number] SUMMARY Successful and uncomplicated ILR implantation. PLAN Avoid strenuous activities involving the chest wall muscles for 1 week Shannon Cordon M.D. Cardiac Ios Programmer [facility] [place] [phone] (office) [phone] (pager) documented in this encounter Plan of Treatment Upcoming Encounters Date Type Department Care Team (Late st Contact Info) Description 03/22/2024 9:00 AM SUPERVISOR SOAKERS Office Visit [facility] - Ophthalmology [address] [place] [phone] Ernesto Hawkins MD [address] [place] [phone] (work) Scheduled Orders Name Type Priority Associated Diagnoses Orde r Schedule EKG 12-LEAD ECG CARLOS S/P ablation of atrial flutter ONCE for 1 Occurrences starting 09/07/2014 until 09/07/2014 documented as of this encounter Procedures Procedure Name Priority Date/Time Associated Diagnosis Comments CARDIAC CATH CONSULT Routine 09/10/2014 9:30 PM CDT CARDIAC PROCEDURE ORDER 09/08/2014 10:03 PM CDT documented in this encounter Results * CARDIAC CATH CONSULT - For Epic Reporting (09/10/2014 9:30 PM CDT) Narrative [facility] - 09/10/2014 9:30 PM CDT Shannon Cordon MD ? 09/10/2014 ??9:30 PM ? ILR DEVICE Implantable Loop recorder implantation 09/07/2014 Patient Information Name: Kenji Camara Date of : 1960 Age: 53 y.o. Referring Physician: Elias Mayorga Ios Programmer: Shannon Cordon INDICATION Hx of atrial flutter s/p ablation [...] ?? Location Name ?Number ??Date [employer] ?? [id number] ??09/07/2014 ?? Left parasternal Reveal LINQ PARAMETER ?INTERVAL ?DURATION TACHY ?? 171b/m ?24 beats CANDACE ?40b/m ?8 beats ASYSTOLE ?3.0 s AF ?Episodes >=20mins PROCEDURES DONE 1) Implantable loop recorder implantation [id number] SUMMARY Successful and uncomplicated ILR implantation. PLAN Avoid strenuous activities involving the chest wall muscles for 1 week Shannon Cordon M.D. Cardiac Ios Programmer [facility] [phone] (office) [phone] (pager) Shannon Cordon MD ECHO ORDERABLES [facility] * CARDIAC PROCEDURE ORDER (09/08/2014 10:03 PM CDT) Narrative 09/08/2014 10:03 PM CDT Ordered by an unspecified provider. Scanned Document CARDIAC SERVICES ORD ERABLES documented in this encounter Visit Diagnoses Diagnosis S/P ablation of atrial flutter- Primary Other postprocedural status documented in this encounter Administered Medications Inactive Administered Medications - up to 3 most recent administrations Medication Order MAR Action Action Date Dose Rate Site ceFAZolin (ANCEF) IVPB 1 g 1 g, at 100 mL/hr, Intravenous, PRE-PROCEDURE ONCE, 1 dose, On Fri09/07/14 at 1426, To be given in Rug Cutter Helper, Pre-procedure (CATH) $ Given 09/07/2014 2:36 PM CDT 1 g 100 m L/hr lidocaine (XYLOCAINE MPF) 1 % injection Infiltration, INTRA-PROCEDURE MULTIPLE, Starting on Fri09/07/14 at 1425, Until Fri09/07/14 at 1632 $ Given 09/07/2014 2:36 PM CDT 30 mL documented in this encounter Active and Recently Administered Medications Times are shown in CDT. Scheduled Medication Order 09/05/2014 09/06/2014 09/07/2014 ceFAZolin (ANCEF) IVPB 1 g (COMPLETED) 1 g, at 100 mL/hr, Intravenous, PRE-PROCEDURE ONCE, 1 dose, On Fri09/07/14 at 1426, To be given in Rug Cutter Helper, Pre-procedure (CATH) 1436 ($ Given - Prov ider: Libertad Colindres RN)1506 (Due: Rx Stopped - Provider: Libertad Colindres RN) lidocaine (XYLOCAINE MPF) 1 % injection (CANCELED) Infiltration, INTRA-PROCEDURE MULTIPLE, Starting on Fri09/07/14 at 1425, Until Fri09/07/14 at 1632 1436 ($ Given - Prov ider: Shannon Cordon MD) documented in this encounter Care Teams Pharmacy Cashier Relationship Specialty Start Date End Date Elias Mayorga MD [address] [place] [address] PCP - General Internal Medicine 09/07/14 Stephanie Prasad RN [address] [employer] [address] [place] [address] Link Fabric Machine Operator 10/06/13 Lan Bragg DO [address] [employer] [address] [employer] [address] [place] [address] Orthopedic Surgery 06/02/14 documented as of this encounter
--- OUTSIDE RECORDS SUMMARY | 2024-03-07 21:57 | XMS_ITS | Encounter Summary ---
Author Organization [facility] Address [address] [facility] [place] [address] Care Team Providers Care Addictions Counselor Assistant Name Role Phone Ten Umanzor Primary Care Provider Stephanie Patterson RN Unavailable [phone] Reason for Referral * Procedure - Closed Specialty Diagnoses / Procedures Referred By Contac t Referred To Contact Cardiology Diagnoses Atrial flutter (HCC) Procedures EKG 12-LEAD Shannon Cordon MD [address] [place] [id number] Referral ID Status Reason Start Date Expiration Date Visits Re quested Visits Authorized [id number] Closed 12/30/2013 06/28/2014 1 1 NATOLOGY PHYSICIAN Encounter Details Date Type Department Care Team (Late st Contact Info) Description 12/30/2013 Orders Only [facility] [address] [place] [address] Shannon Cordon MD [address] [place] [id number] Atrial flutter (HCC) Social History Tobacco Use Types [...] No 10/06/2013 documented as of this encounter Progress Notes * Isidra Dorsey - 12/30/2013 4:22 PM CST Orders placed for pts upcoming Aflutter ablation on 01/11/14 @ PSYCHIATRIC with Dr. Cordon. NATOLOGY PHYSICIAN documented in this encounter Plan of Treatment Upcoming Encounters Date Type Department Care Team (Late st Contact Info) Description 03/22/2024 9:00 AM PERINATOLOGY PHYSICIAN Office Visit [facility] - Ophthalmology [address] [place] [phone] Ernesto Hawkins MD [facility] [place] [phone] documented as of this encounter Procedures Procedure Name Priority Date/Time Associated Diagnosis Comments PT-INR 01/04/2014 5:34 PM PERINATOLOGY PHYSICIAN CBC W AUTO DIFFERENTIAL 01/04/2014 5:34 PM PERINATOLOGY PHYSICIAN BASIC METABOLIC PANEL (CALCIUM TOTAL) 01/04/2014 5:34 PM PERINATOLOGY PHYSICIAN documented in this encounter Results * EKG 12-LEAD (01/05/2014 2:46 PM PERINATOLOGY PHYSICIAN) Ventricular Rate 75 BPM [facility] MUSE Atrial Rate 75 BPM [facility] M[facility] P-R Interval 136 ms [facility] QRS Duration ms 90 ms [facility] Q-T Interval ms 380 ms [facility] QTC Calculation (Bezet) 424 ms [facility] MUSE Calculated P [place] 51 degrees [facility] MUSE Calculated R [place] 57 degrees [facility] MUSE Calculated T [place] 13 degrees [facility] MUSE Interpretation EKG Sinus rhythm with occasional Premature ventricular complexes Otherwise normal ECG When compared with ECG of 06-OCT-2013 16:40, Premature ventricular complexes are now Present Confirmed by TYLER MALDONADO, LAYLA ([id number]) on 01/05/2014 11:35:06 PM [facility] MUSE 01/05/2014 2:46 PM PERINATOLOGY PHYSICIAN 01/05/2014 11:35 PM PERINATOLOGY PHYSICIAN Shannon Cordon MD ECG ORDERABLES [facility] MUSE * (ABNORMAL) PT-INR (01/04/2014 5:34 PM PERINATOLOGY PHYSICIAN) INR 1.2 0.8 - 1.2 [facility] ACCOUNT BILL Comment: ? Reference interval is for non-anticoagulated patients. ?. ? Suggested INR therapeutic range for Vitamin K ? antagonist therapy: ?Standard Dose (moderate intensity ? therapeutic range): ? 2.0 - 3.0 ?Higher intensity therapeutic range ? 2.5 - 3.5 PT 12.3(H) 9.1 - 12.0 sec [facility] ACCOUNT BILL 01/04/2014 5:34 PM PERINATOLOGY PHYSICIAN 01/04/2014 6:47 PM PERINATOLOGY PHYSICIAN Narrative Resulting Agency Comment [facility] [address] ??[facility] [id number] Shannon Cordon MD LAB - COAGULATION ORDERABLES Performing Organization Address City/[facility] Co de Phone Number [facility] ACCOUNT BILL * BASIC METABOLIC PANEL (CALCIUM TOTAL) (01/04/2014 5:34 PM PERINATOLOGY PHYSICIAN) Glucose 91 65 - 99 mg/dL [facility] ACCOUNT BILL BUN 18 6 - 24 mg/dL [facility] ACCOUNT BILL Creatinine 1.02 0.76 - 1.27 mg/dL [facility] ACCOUNT BILL eGFR by MDRD 82 >59 mL/min/1.7 3 [facility] ACCOUNT BILL eGFR by MDRD 95 >59 mL/min/1.7 3 [facility] ACCOUNT BILL BUN/Creatinine Ratio 18 9 - 20 [facility] ACCOUNT BILL Sodium 143 134 - 144 mmol/L [facility] ACCOUNT BILL Potassium 4.6 3.5 - 5.2 mmol/L [facility] ACCOUNT BILL Chloride 103 97 - 108 mmol/L [facility] ACCOUNT BILL CO2 24 18 - 29 mmol/L [facility] ACCOUNT BILL Calcium 9.4 8.7 - 10.2 mg/dL [facility] ACCOUNT BILL 01/04/2014 5:34 PM PERINATOLOGY PHYSICIAN 01/04/2014 6:47 PM PERINATOLOGY PHYSICIAN Narrative Resulting Agency Comment [facility] [address] ??[facility] [id number] Shannon Cordon MD LAB - CHEMISTRY O RDERABLES Performing Organization Address City/[facility] Co de Phone Number [facility] ACCOUNT BILL * CBC W AUTO DIFFERENTIAL (01/04/2014 5:34 PM PERINATOLOGY PHYSICIAN) WBC 5.2 3.4 - 10.8 x10E3/uL [facility] ACCOUNT BILL RBC 4.84 4.14 - 5.80 x10E6/uL [facility] ACCOUNT BILL Hemoglobin 14.8 12.6 - 17.7 g/dL [facility] ACCOUNT BILL Hematocrit 43.6 37.5 - 51.0 % [facility] ACCOUNT BILL MCV 90 79 - 97 fL [facility] ACCOUNT BILL MCH 30.6 26.6 - 33.0 pg [facility] ACCOUNT BILL MCHC 33.9 31.5 - 35.7 g/dL [facility] ACCOUNT BILL RDW 13.6 12.3 - 15.4 % [facility] ACCOUNT BILL Platelet Count 302 150 - 379 x10E3/uL [facility] ACCOUNT BILL Granulocytes % 62 % [facility] ACCOUNT BILL Lymphocytes % 30 % [facility] ACCOUNT BILL Monocytes % 7 % [facility] ACCOUNT BILL Eosinophils % 1 % [facility] ACCOUNT BILL Basophils % 0 % [facility] ACCOUNT BILL Immature Cells NOT NEEDED [facility] ACCOUNT BILL Comment:Ancillary determined the test is not needed Granulocytes Absolute 3.2 1.4 - 7.0 x10E3/uL [facility] ACCOUNT BILL Lymphocytes Absolute 1.6 0.7 - 3.1 x10E3/uL [facility] ACCOUNT BILL Monocytes Absolute 0.4 0.1 - 0.9 x10E3/uL [facility] ACCOUNT BILL Eosinophils Absolute 0.0 0.0 - 0.4 x10E3/uL [facility] ACCOUNT BILL Basophils Absolute 0.0 0.0 - 0.2 x10E3/uL [facility] ACCOUNT BILL Immature Granulocytes 0 % [facility] ACCOUNT BILL Immature Granulocytes Absolute 0.0 0.0 - 0.1 x10E3/uL [facility] ACCOUNT BILL nRBC NOT NEEDED [facility] ACCOUNT BILL Comment:Ancillary determined the test is not needed Comment Hematology NOT NEEDED [facility] ACCOUNT BILL Comment: A hand-written panel/profile was received from your office. In accordance with the [facility] Ambiguous Test Code Policy dated August 2002, we have assigned CBC with Differential/Platelet, Test Code #[id number] to this request. If this is not the testing you wished to receive on this specimen, please contact the [facility] Client Inquiry/ Technical Services Department to clarify the test order. We appreciate your business. Ancillary determined the test is not needed 01/04/2014 5:34 PM PERINATOLOGY PHYSICIAN 01/04/2014 6:47 PM PERINATOLOGY PHYSICIAN Narrative Resulting Agency Comment [place] [id number] [facility] ??[facility] [id number] Shannon Cordon MD LAB - HEMATOLOGY ORDERABLES [facility] ACCOUNT BILL documented in this encounter Visit Diagnoses Diagnosis Atrial flutter (HCC)- Primary Atrial flutter documented in this encounter Care Teams Addictions Counselor Assistant Relationship Specialty Start Date End Date ErnaTen Manuel provider retired [id number] PCP - General 04/10/11 09/06/14 Stephanie Prasad, RN [address] [facility] [address] [place] [address] Staff Occupational Therapist 10/06/13 documented as of this encounter
--- OUTSIDE RECORDS SUMMARY | 2024-03-07 21:57 | XMS_ITS | Encounter Summary ---
Author Organization [facility] Address [address] [facility] [place] [address] Care Team Providers Care Diesel Stationary Engineer Name Role Phone Ten Umanzor Primary Care Provider Stephanie Patterson RN Unavailable [phone] Lan Bragg DO Unavailable Reason for Visit * Reason Onset Date Comments Update 08/29/2014 Encounter Details Date Type Department Care Team (Late st Contact Info) Description 08/29/2014 Telephone [facility] Heart & Vascular Care [address] [place] [address] Shannon Cordon MD [address] [address] Update Social History Tobacco Use Types Packs/Day Years [...] * Telephone Encounter - Isidra Dorsey - 08/31/2014 9:49 AM CDT [place] confirmed appt. * Telephone Encounter - Isidra Drosey - 08/30/2014 5:23 PM CDT Pt is tentatively scheduled for a LinQ implant on 09/07/14 @ 1:[address] [facility] [address] Cordon. I have a message in to [place] with [facility]. She will confirm date/time tomorrow. Pt is aware and will be preparedfor above date since I have previously discussed this with [place]. Just needed to confirm with patient on availability. * Telephone Encounter - Shannon Cordon MD - 08/29/2014 4:05 PM CDT Received a call from Dr. Mayorga. Patient had a gastrocnemius vein thrombosis 3 days after discontinuing Eliquis. He has since resumed anticoagulation. Given the fact that he has had atrial arrhythmias and we are suspicious he may develop AF someday, Dr. Mayorga was wondering if he would be a candidate for a loop recorder. I agree with the usefulness of his and I called patient who was also agreeable. We will schedule him for the procedure (loop recorder implantation) Shannon Cordon MD 08/29/2014 4:08 PM * Telephone Encounter - Shanthi Dailey MA - 08/29/2014 1:38 PM CDT FYI Patient has a new primary care physician- he is now seeing Dr. Elias Mayorga. He wanted to let you know that he is wanting to get in touch with Dr. Cordon About his care documented in this encounter Plan of Treatment Upcoming Encounters Date Type Department Care Team (Late st Contact Info) Description 03/22/2024 9:00 AM RANGE AID Office Visit [facility] - Ophthalmology [address] [place] [phone] Ernesto Hawkins MD [address] [place] [phone] documented as of this encounter Visit Diagnoses Not on filedocumented in this encounter Care Teams Diesel Stationary Engineer Relationship Specialty Start Date End Date Ten Umanzor provider retired [id number] PCP - General 04/10/11 09/06/14 Stephanie Prasad RN [address] [facility] [address] [place] [address] Dancer Or Choreographer 10/06/13 Lan Bragg DO [address] [facility] [address] [place] [address] Orthopedic Surgery 06/02/14 documented as of this encounter
--- OUTSIDE RECORDS SUMMARY | 2024-03-07 21:57 | XMS_ITS | Encounter Summary ---
Author Organization [facility] Address [address] [facility] [place] [address] Care Team Providers Care Chief Marketing Officer Name Role Phone Stephanie Prasad RN Unavailable [phone] Lan Bragg DO Unavailable Elias Mayorga MD Primary Care Provider [phone] Reason for Visit * Reason Comments Refill Request Encounter Details Date Type Department Care Team (Late st Contact Info) Description 09/19/2014 Refill [facility] Heart [facility] Vascular Care [address] [phone] Shannon Valadez MD [address] [address] Refill Request Social History Tobacco Use Types [...] encounter Miscellaneous Notes * Telephone Encounter - Estefania Valentin - 09/19/2014 1:07 PM CDT Medicine Refill Request Source: In Basket message Next appointment with Jn Valadez MD on 11/07/2014. Requested Prescriptions Signed Prescriptions Disp Refills ??? ELIQUIS 5 MG tablet 60 Tab 5 Sig: TAKE 1 TABLET BY MOUTH TWICE DAILY Authorizing Provider: SHANNON VALADEZ Ordering User: ESTEFANIA VALENTIN Symptoms: not asked Action: Medication was refilled. documented in this encounter Plan of Treatment Upcoming Encounters Date Type Department Care Team (Late st Contact Info) Description 03/22/2024 9:00 AM DISTRICT AGENT Office Visit [facility] - Ophthalmology [address] [place] [phone] Ernesto Hawkins MD [facility] [place] [address] documented as of this encounter Visit Diagnoses Not on filedocumented in this encounter Care Teams Chief Marketing Officer Relationship Specialty Start Date End Date Elias Mayorga MD [address] [facility] [address] [place] [address] PCP - General Internal Medicine 09/07/14 Stephanie Prasad, RN [address] [facility] [address] [place] [address] Marketing Secretary 10/06/13 Lan Bragg DO [address] [facility] [address] [place] [address] Orthopedic Surgery 06/02/14 documented as of this encounter
--- OUTSIDE RECORDS SUMMARY | 2024-03-07 21:57 | XMS_ITS | Encounter Summary ---
Author Organization [facility] Address [address] [facility] [place] [address] Care Team Providers Care Care Management Assistant Name Role Phone Ten Umanzor Primary Care Provider Stephanie Patterson RN Unavailable [phone] Lan Bragg DO Unavailable Encounter Details Date Type Department Care Team (Late st Contact Info) Description 06/22/2014 Orders Only [facility] Heart & Vascular Care [address] [place] [address] Shannon Cordon MD [address] [address] Social History Tobacco Use Types Packs/Day Years [...] encounter Progress Notes * Isidra Dorsey - 06/22/2014 3:59 PM CDT Rx sent to pharmacy. * Isidra Dorsey - 06/22/2014 3:45 PM CDT Pt requesting refill on Flecainide 50mg BID be sent to [facility]. documented in this encounter Plan of Treatment Upcoming Encounters Date Type Department Care Team (Late st Contact Info) Description 03/22/2024 9:00 AM LIFE CYCLE ASSESSMENT ANALYST Office Visit [facility] - Ophthalmology [address] [place] [phone] Ernesto Hawkins MD [address] [place] [phone] documented as of this encounter Procedures Procedure Name Priority Date/Time Associated Diagnosis Comments CBC W AUTO DIFFERENTIAL 07/12/2014 7:56 AM CDT BASIC METABOLIC PANEL (CALCIUM TOTAL) 07/12/2014 7:56 AM CDT documented in this encounter Results * BASIC METABOLIC PANEL (CALCIUM TOTAL) (07/12/2014 7:56 AM CDT) Glucose 89 65 - 99 mg/dL [facility] [...] PM CDT Narrative Resulting Agency Comment [facility] [address] ??[facility] [id number] Shannon Cordon MD LAB - CHEMISTRY O RDERABLES [facility] ACCOUNT BILL * CBC W AUTO DIFFERENTIAL (07/12/2014 7:56 AM CDT) WBC 4.2 3.4 - 10.8 x10E3/uL [facility] ACCOUNT BILL RBC 4.95 4.14 - 5.80 x10E6/uL [facility] ACCOUNT BILL Hemoglobin 15.4 12.6 - 17.7 g/dL [facility] ACCOUNT BILL Hematocrit 44.9 37.5 - 51.0 % [facility] ACCOUNT BILL MCV 91 79 - 97 fL [facility] ACCOUNT BILL MCH 31.1 26.6 - 33.0 pg [facility] ACCOUNT BILL MCHC 34.3 31.5 - 35.7 g/dL [facility] ACCOUNT BILL RDW 13.3 12.3 - 15.4 % [facility] ACCOUNT BILL Platelet Count 296 150 - 379 x10E3/uL [facility] ACCOUNT BILL Granulocytes % 62 % [facility] ACCOUNT BILL Lymphocytes % 25 % [facility] ACCOUNT BILL Monocytes % 11 % [facility] ACCOUNT BILL Eosinophils % 1 % [facility] ACCOUNT BILL Basophils % 1 % [facility] ACCOUNT BILL Immature Cells NOT NEEDED [facility] ACCOUNT BILL Comment:Ancillary determined the test is not needed Granulocytes Absolute 2.6 1.4 - 7.0 x10E3/uL [facility] ACCOUNT BILL Lymphocytes Absolute 1.1 0.7 - 3.1 x10E3/uL [facility] ACCOUNT BILL Monocytes Absolute 0.5 0.1 - 0.9 x10E3/uL [facility] ACCOUNT BILL Eosinophils Absolute 0.1 0.0 - 0.4 x10E3/uL [facility] ACCOUNT BILL [...] have assigned CBC with Differential/Platelet, Test Code #[id number] to this request. If this is not the testing you wished to receive on this specimen, please contact the [facility] Client Inquiry/ Technical Services Department to clarify the test order. We appreciate your business. Ancillary determined the test is not needed 07/12/2014 7:56 AM CDT 07/12/2014 12:26 PM CDT Narrative Resulting Agency Comment [facility] ??[facility] [id number] Shannon Cordon MD LAB - HEMATOLOGY ORDERABLES [facility] ACCOUNT BILL documented in this encounter Visit Diagnoses Not on filedocumented in this encounter Care Teams Care Management Assistant Relationship Specialty Start Date End Date Ten Umanzor provider retired [id number] PCP - General 04/10/11 09/06/14 Stephanie Prasad RN [address] [facility] [address] [place] [address] Temperature Regulator 10/06/13 Lan Bragg DO [address] [facility] [address] [place] [address] Orthopedic Surgery 06/02/14 documented as of this encounter
--- OUTSIDE RECORDS SUMMARY | 2024-03-07 21:57 | XMS_ITS | Encounter Summary ---
Author Organization [facility] Address [address] [facility] [place] [address] Care Team Providers Care Rail Transit Operator Name Role Phone Ten Umanzor Primary Care Provider Stephanie Patterson RN Unavailable Reason for Visit * Auth/Cert - Closed Specialty Diagnoses / Procedures Referred By Contac t Referred To Contact Inpatient Care Diagnoses chest pain Procedures A-Flutter Ablation [facility] 3d Telemetry [address] [place] [address] Referral ID Status Reason Start Date Expiration Date Visits Re quested Visits Authorized [id number] Closed 01/12/2014 07/11/2014 1 Encounter Details Date Type Department Care Team (Late st Contact Info) Description 01/11/2014 8:57 AM DISTRICT ASSOCIATE JUDGE Anesthesia Event [facility] CARDIAC TEMP RECRUITER [address] [place] [address] Galo Mccrary MD [address] [facility] [place] [address] Ten Jenkins, ROLLER LEVELER-ASSISTANT PROFESSOR OF PSYCHOLOGY [address] [place] [address] Anesthesia Record Procedure Summary Procedure Name Responsible Anesthesiologist Anesthesia Start Time Anesthesia Stop Time EPS/ ABLATIONS Galo Mccrary MD 01/11/14 0857 1312 Events Date Time Event Comment 01/11/2014 0857 An Start 0857 An Start Data 0906 PT Reassessment Patient and Vital Signs reassessed prior to induction. 0941 Quick Note Start 1310 an stop data 1310 Elect Sign The providers l isted as staff are the responsible providers for the case. 1310 ANPTO2 1312 An Stop Meds Name Total midazolam (VERSED) 1 mg/ml injection 3 m g fentaNYL (SUBLIMAZE) injection 200 mcg propofol (DIPRIVAN) 10 mg/ml injection 1 ,474.2 mg 0.9% NaCl infusion 250 mL * Agents Name Insp. N2O O2 * Blood No blood administrations on file. Lines, Drains, and Airways Type Details Placement Removal Peripheral IV Date: 01/11/14; Time : 735; Orientation: Right; Placed By: siennarn; Tolerance: Well 01/11/14 0736 by Luz Espinosa RN 01/11/14 182 by Kerrie Blackwell RN documented in this encounter Social History [...] as of this encounter Progress Notes * Nay Irving APRN-ASSISTANT PROFESSOR OF PSYCHOLOGY - 01/11/2014 2:05 PM CST ANESTHESIA POSTPROCEDURE EVALUATION Kenji Camara is a 53 y.o. male Temp: 36.4 ??C Pulse: 82 Resp: 16 BP: 128/92 mmHg SpO2: 98 % Pain Rating Score #1: 9 Anesthesia Type: MAC Mental status: sufficiently recovered from acute administration of anesthesia to participate in the evaluation. Level of consciousness: awake No numbness, tingling or visual disturbances present. General appearance: well-appearing Respiratory function: natural airway. Cardiac: stable Pain: comfortable/acceptable PONV: None Postop hydration: adequate. Patient may be released from anesthesia care. A postop evaluation was performed on this patient with the following assessment: no apparent anesthesia complications RICT ASSOCIATE JUDGE documented in this encounter Consult Notes * Nay Irving, ROLLER LEVELER-ASSISTANT PROFESSOR OF PSYCHOLOGY - 01/11/2014 8:02 AM CST Pre-anesthesia Evaluation * No surgery found * Vital Signs: Temp: 36.4 ??C (01/11 731) Pulse: 71 (01/11 731) BP: 121/85 mmHg (01/11 731) SpO2: 97 % (01/11 731) BMI: Estimated body mass index is 26.16 kg/(m^2) as calculated from the following: Height as of this encounter: 1.727 m (5' 8 ). Weight as of this encounter: 78.019 kg (172 lb). History: Past Medical History Diagnosis Date ??? Atrial flutter 12/30/2013 Past Surgical History Procedure Laterality Date ??? Shoulder arthroscopy ??? Carpal tunnel surgery ??? Hernia repair, inguinal 04/11/11 reports that he has never smoked. He does not have any smokeless tobacco history on file. He reports that he drinks about 0.5 ounces of alcohol per week. He reports that he does not use illicit drugs. Allergies: is allergic to naproxen. Medications: Prescriptions prior to admission Medication Sig Dispense Refill ??? rivaroxaban (XARELTO) 20 MG tablet Take 1 tablet by mouth once daily. 30 tablet 2 ??? diltiazem ER 24hr (TIAZAC) 180 MG capsule Take 1 capsule by mouth once daily. 30 capsule 3 ??? B Complex-Folic Acid (B COMPLEX-VITAMIN B12) TABS Take 1 tablet by mouth once daily. ??? glucosamine-chondroitin (GLUCOSAMINE CHONDR COMPLEX) 500-400 MG capsule Take 1 capsule by mouthonce daily. ??? MAGNESIUM PO Take 1 tablet by mouth once daily. Patient is unsure of dosage. No current facility-administered medications on file prior to encounter. Current Outpatient Prescriptions on File Prior to Encounter Medication Sig Dispense Refill ??? rivaroxaban (XARELTO) 20 MG tablet Take 1 tablet by mouth once daily. 30 tablet 2 ??? diltiazem ER 24hr (TIAZAC) 180 MG capsule Take 1 capsule by mouth once daily. 30 capsule 3 ??? B Complex-Folic Acid (B COMPLEX-VITAMIN B12) TABS Take 1 tablet by mouth once daily. ??? glucosamine-chondroitin (GLUCOSAMINE CHONDR COMPLEX) 500-400 MG capsule Take 1 capsule by mouthonce daily. ??? MAGNESIUM PO Take 1 tablet by mouth once daily. Patient is unsure of dosage. Physical Exam: NPO status: no solids since midnight and no liquids within 2 hours Oriented to person, place and time Airway: II Neck ROM: full Dental exam findings: caps/crowns upper and caps/crowns lower Pulmonary exam: breath sounds CTA Heart sounds: S1 S2 ECG reviewed Chest x-ray reviewed Stress test reviewed Plan for Anesthesia: ASA Score: 3. Anesthesia plan: MAC Planned method of induction: intravenous Planned postop destination: other Anesthesia plan, risks and benefits discussed with patient Plan accepted yes Discussed anesthesia plan with: ASSISTANT PROFESSOR OF PSYCHOLOGY. RICT ASSOCIATE JUDGE documented in this encounter Plan of Treatment Upcoming Encounters Date Type Department Care Team (Late st Contact Info) Description 03/22/2024 9:00 AM DISTRICT ASSOCIATE JUDGE Office Visit [facility] - Ophthalmology [address] [place] [phone] Ernesto Hawkins MD [address] [place] [phone] documented as of this encounter Visit Diagnoses Not on filedocumented in this encounter Administered Medications Inactive Administered Medications - up to 3 most recent administrations Medication Order MAR Action Action Date Dose Rate Site 0.9% NaCl infusion CONTINUOUS PRN, Starting on Fri01/11/14 at 0857, Until Fri01/11/14 at 1312, Anesthesia Intra-op $ New Bag/Syringe 01/11/2014 8:57 AM DISTRICT ASSOCIATE JUDGE fentaNYL (SUBLIMAZE) injection PRN, Starting on Fri01/11/14 at 1106, Until Fri01/11/14 at 1312, Anesthesia Intra-op $ Given 01/11/2014 12:57 PM DISTRICT ASSOCIATE JUDGE 50 mcg $ Given 01/11/2014 12:30 PM DISTRICT ASSOCIATE JUDGE 50 mcg $ Given 01/11/2014 12:17 PM DISTRICT ASSOCIATE JUDGE 50 mcg midazolam (VERSED) injection PRN, Starting on Fri01/11/14 at 0910, Until Fri01/11/14 at 1312, Anesthesia Intra-op $ Given 01/11/2014 10:55 AM DISTRICT ASSOCIATE JUDGE 1 mg $ Given 01/11/2014 9:10 AM DISTRICT ASSOCIATE JUDGE 2 mg propofol (DIPRIVAN) injection CONTINUOUS PRN, Starting on Fri01/11/14 at 0951, Until Fri01/11/14 at 1312, Anesthesia Intra-op $ New Bag/Syringe 01/11/2014 9:51 AM DISTRICT ASSOCIATE JUDGE 100 mcg/kg/min 46.8 mL/hr documented in this encounter Care Teams Rail Transit Operator Relationship Specialty Start Date End Date Ten Umanzor provider retired [id number] PCP - General 04/10/11 09/06/14 Stephanie Prasad RN [address] [facility] [address] [place] [address] Hplc Chemist 10/06/13 documented as of this encounter
--- OUTSIDE RECORDS SUMMARY | 2024-03-07 21:57 | XMS_ITS | Encounter Summary ---
Author Organization [facility] Address [address] [place] [address] Care Team Providers Care Photogrammetrist Name Role Phone Stephanie Prasad RN Unavailable [phone] Lan Bragg DO Unavailable Elias Mayorga MD Primary Care Provider [phone] Reason for Visit * Reason Onset Date Comments MEDICATION REFILL 03/27/2015 Encounter Details Date Type Department Care Team (Late st Contact Info) Description 03/27/2015 Refill [facility] Heart & Vascular Care [address] [place] [address] Shannon Cordon MD [address] [address] MEDICATION REFILL Social History Tobacco Use Types [...] encounter Miscellaneous Notes * Telephone Encounter - ParsonsRyan - 03/27/2015 1:28 PM CST Pt called and is almost out of pills. Script sent for his convenience. SCOPE TECHNICIAN documented in this encounter Plan of Treatment Upcoming Encounters Date Type Department Care Team (Late st Contact Info) Description 03/22/2024 9:00 AM ENDOSCOPE TECHNICIAN Office Visit [facility] - Ophthalmology [address] [place] [phone] Ernesto Hawkins MD [address] [place] [phone] documented as of this encounter Visit Diagnoses Not on filedocumented in this encounter Care Teams Photogrammetrist Relationship Specialty Start Date End Date Elias Mayorga MD [email or web address] [place] [address] PCP - General Internal Medicine 09/07/14 Stephanie Prasad, RN [address] [place] [address] Recording Studio Setup Worker 10/06/13 Lan Bragg DO [address] [place] [address] Orthopedic Surgery 06/02/14 documented as of this encounter
--- OUTSIDE RECORDS SUMMARY | 2024-03-07 21:57 | XMS_ITS | Encounter Summary ---
Author Organization [facility] Address [address] [facility] [place] [address] Care Team Providers Care Descriptive Catalog Librarian Name Role Phone Ten Umanzor Primary Care Provider Stephanie Patterson RN Unavailable [phone] Reason for Referral * Procedure - Closed Specialty Diagnoses / Procedures Referred By Rosa espinosa Referred To Contact Cardiology Diagnoses Atrial flutter (HCC) Procedures EKG 12-LEAD Shannon Cordon MD [address] [place] [address] Referral ID Status Reason Start Date Expiration Date Visits Re quested Visits Authorized [id number] Closed 12/30/2013 06/28/2014 1 1 Reason for Visit * Procedure - Closed Specialty Diagnoses / Procedures Referred By Rosa espinosa Referred To Contact Cardiology Diagnoses Atrial flutter (HCC) Procedures EKG 12-LEAD Shannon Cordon MD [address] [place] [address] Referral ID Status Reason Start Date Expiration Date Visits Re quested Visits Authorized [id number] Closed 12/30/2013 06/28/2014 1 1 Encounter Details Date Type Department Care Team (Latest Contact Info) Description 01/05/2014 2:28 PM CCIE - 01/05/2014 11:59 PM CCIE Hospital Encounter [facility] [address] [place] [address] Shannon Cordon MD [address] [place] [address] Discharge Disposition: Home or Self Care Social [...] No 10/06/2013 documented as of this encounter Medications at Time of Discharge Medication Sig Dispensed Refills Start Date End Date B Complex-Folic Acid (B COMPLEX-VITAMIN B12) TABS Take 1 tablet by mouth once daily. 07/25/2014 diltiazem ER 24hr (TIAZAC) 180 MG capsule Take 1 capsule by mouth once daily. 30 capsule 3 10/07/2013 01/11/2014 glucosamine-chondroitin (GLUCOSAMINE CHONDR COMPLEX) 500-400 MG capsule Take 1 capsule by mouth once daily. 07/25/2014 MAGNESIUM PO Take 1 tablet by mouth once daily. Patient is unsure of dosage. 07/25/2014 rivaroxaban (XARELTO) 20 MG tablet Take 1 tablet by mouth once daily. 30 tablet 2 10/07/2013 01/17/2014 documented as of this encounter Plan of Treatment Upcoming Encounters Date Type Department Care Team (Late st Contact Info) Description 03/22/2024 9:00 AM CCIE Office Visit [facility] [address] [place] [phone] Ernesto Hawkins MD [facility] [place] [phone] documented as of this encounter Procedures Procedure Name Priority Date/Time Associated Diagnosis Comments EKG 12-LEAD Routine 01/05/2014 2:46 PM CCIE Atrial flutter (HCC) documented in this encounter Results * EKG 12-LEAD (01/05/2014 2:46 PM [facility]) Ventricular Rate 75 BPM [facility] Atrial Rate 75 BPM [facility] P-R Interval 136 ms [facility] QRS Duration ms 90 ms [facility] Q-T Interval ms 380 ms [facility] QTC Calculation (Bezet) 424 ms [facility] Calculated P [place] 51 degrees [facility]USE Calculated R [place] 57 degrees [facility]USE Calculated T [place] 13 degrees [facility] Interpretation EKG Sinus rhythm with occasional Premature ventricular complexes Otherwise normal ECG When compared with ECG of 06-OCT-2013 16:40, Premature ventricular complexes are now Present Confirmed by TYLER MALDONADO, LAYLA ([id number]) on 01/05/2014 11:35:06 PM [facility] MUSE 01/05/2014 2:46 PM [facility] 01/05/2014 11:35 PM [facility] Shannon Cordon MD ECG ORDERABLES [facility] documented in this encounter Visit Diagnoses Diagnosis Atrial flutter (HCC) Atrial flutter documented in this encounter Care Teams Descriptive Catalog Librarian Relationship Specialty Start Date End Date Ten Umanzor provider retired [id number] PCP - General 04/10/11 09/06/14 Stephanie Prasad, RN [address] [facility] [address] [place] [address] Bin Worker 10/06/13 documented as of this encounter
--- OUTSIDE RECORDS SUMMARY | 2024-03-07 21:57 | XMS_ITS | Encounter Summary ---
Author Organization [facility] Address [address] [facility] [place] [address] Care Team Providers Care Deputy Director Of Finance Name Role Phone Stephanie Prasad RN Unavailable [phone] Lan Bragg DO Unavailable Elias Mayorga MD Primary Care Provider [phone] Reason for Visit * Reason Onset Date Comments Question 09/22/2014 Encounter Details Date Type Department Care Team (Late st Contact Info) Description 09/22/2014 Telephone [facility] Heart & Vascular Care [address] [place] [address] Shannon Cordon MD [address] [address] Question Social History Tobacco Use Types Packs/Day [...] * Telephone Encounter - Ryan Parsons - 09/23/2014 9:36 AM CDT I called and informed pt that he may proceed with extractions. * Telephone Encounter - Shannon Cordon MD - 09/22/2014 6:08 PM CDT He is cleared for extractions. No need to wait. hSannon Cordon MD 09/22/2014 6:09 PM * Telephone Encounter - Ryan Parsons - 09/22/2014 1:39 PM CDT Pt called stating that he has bad tooth infection and is needing 4 teeth removed. Pt had a loop recorder placed on September 07. Pt stated that his dentist wants to know if pt is cleared to have the extractions? Pt stated that the extractions is not a urgent matter, but his dentist prefers he has the procedure sooner rather than later. Pt stated that if he is ok to proceed with the extractions, that he will actually have to see another dental surgeon that deals with pt's who are on anticoagulants. Pt is currently taking Penicillin, and Tylenol #3 as needed. Please advise: Pt's number is . documented in this encounter Plan of Treatment Upcoming Encounters Date Type Department Care Team (Late st Contact Info) Description 03/22/2024 9:00 AM MEDICAL SOCIAL CONSULTANT Office Visit [facility] [address] [place] [phone] Ernesto Hawkins MD [address] [place] [phone] documented as of this encounter Visit Diagnoses Not on filedocumented in this encounter Care Teams Deputy Director Of Finance Relationship Specialty Start Date End Date Elias Mayorga MD [address] [place] [address] PCP - General Internal Medicine 09/07/14 Stephanie Prasad RN [address] [facility] [address] [place] [address] Certified Endoscopy Technician 10/06/13 Lan Bragg DO [address] [facility] [address] [place] [address] Orthopedic Surgery 06/02/14 documented as of this encounter
--- OUTSIDE RECORDS SUMMARY | 2024-03-07 21:57 | XMS_ITS | Encounter Summary ---
Author Organization [facility] Address [address] [facility] [place] [address] Care Team Providers Care Regeneration Operator Name Role Phone Ten Umanzor Primary Care Provider Stephanie Patterson RN Unavailable Lan Bragg DO Unavailable Reason for Referral * Radiology Services - Closed Specialty Diagnoses / Procedures Referred By Contac t Referred To Contact Diagnoses Pain of left lower leg Procedures VAS LEFT VENOUS DUPLEX Elias Justice MD [address] [place] [address] Referral ID Status Reason Start Date Expiration Date Visits Re quested Visits Authorized [id number] Closed 08/29/2014 02/25/2015 1 1 Reason for Visit * Radiology Services - Closed Specialty Diagnoses / Procedures Referred By Controman t Referred To Contact Diagnoses Pain of left lower leg Procedures VAS LEFT VENOUS DUPLEX Elias Justice MD [address] [place] [address] Referral ID Status Reason Start Date Expiration Date Visits Re quested Visits Authorized [id number] Closed 08/29/2014 02/25/2015 1 1 Encounter Details Date Type Department Care Team (Latest Contact Info) Description 08/29/2014 11:35 AM CDT - 08/29/2014 11:59 PM CDT Hospital Encounter [facility] [address] [place] [address], [address] [place] [address] [place] [address] [facility] [address] [place] [address] Discharge Disposition: Home or Self Care Social [...] st Contact Info) Description 03/22/2024 9:00 AM SPRING COILING MACHINE SETTER Office Visit [facility] [address] [place] [phone] Ernesto Hawkins MD [address] [place] [phone] documented as of this encounter Procedures Procedure Name Priority Date/Time Associated Diagnosis Comments VAS LEFT VENOUS DUPLEX LE Routine 08/29/2014 11:56 AM CDT Pain of left lower leg documented in this encounter Results * VAS LEFT VENOUS DUPLEX LE (08/29/2014 11:56 AM CDT) Anatomical Region Laterality Modality Lower Extremity, Upper Extremity Ultrasound 08/29/2014 1:18 PM CDT Narrative Procedure Note Isaac Hilton MD - 08/29/2014 [facility] [address], [address] [place] [id number] Lower Extremity Venous Ultrasound Report Pat.Name: SERG CAMARA Pat.ID: [id number] St.Date: 08/29/2014 Exam Time: 1:18:00 PM Study Type:LE Venous Age: 10 1960,53Y Sex: MALE Sonogrphr: Valdo Matthew RVT Pat. Stat.:Outpatient ICD - 9: 729.5 Pain in Extremity CPT - 4: 61788 Procedures:Lower Extremity Venous - Left Visit ID: [id number] SUMMARY: Acute deep vein thrombosis of the left leg involving the gastrocnemius vein(s). FINDINGS: Procedure: Venous duplex imaging of the left lower extremity was performed using color flow and spectral Doppler analysis. The contralateral common femoral vein was also examined. Study Quality: This study is of adequate technical quality. Lt Leg: Appropriate augmentation with distal compression. No evidence of reflux with proximal compression. There is acute, occlusive thrombus in the gastrocnemius vein. One of the two gastroc vein has a clot. This does not propagate into the popliteal vein. Signed 08/29/2014 03:44 PM Isaac Hilton MD Elias Mayorga MD VASCULAR LAB ORDERAB LES documented in this encounter Visit Diagnoses Diagnosis Pain of left lower leg Pain in limb documented in this encounter Care Teams Regeneration Operator Relationship Specialty Start Date End Date Ten Umanzor provider retired [id number] PCP - General 04/10/11 09/06/14 Stephanie Prasad RN [address] [facility] [address] [place] [id number] Senior J2Ee Developer 10/06/13 Lan Bragg DO [address] [place] [address] Orthopedic Surgery 06/02/14 documented as of this encounter
--- OUTSIDE RECORDS SUMMARY | 2024-03-07 21:57 | XMS_ITS | Encounter Summary ---
Author Organization [facility] Address [address] [place] [place] [address] Care Team Providers Care Poultry Picker Name Role Phone Ten Umanzor Primary Care Provider Stephanie Patterson RN Unavailable [phone] Reason for Visit * Reason Onset Date Comments Question 01/03/2014 Encounter Details Date Type Department Care Team (Late st Contact Info) Description 01/03/2014 Telephone [facility] Heart & Vascular Care [facility] [place] [address] Shannon Cordon MD [address] [place] [address] Question Social History Tobacco Use Types Packs/Day [...] encounter Miscellaneous Notes * Telephone Encounter - Shannon Cordon MD - 01/04/2014 8:49 PM AGRICULTURAL MECHANIC Aware. Shannon Cordon MD 01/04/2014 8:49 PM CULTURAL MECHANIC * Telephone Encounter - Isidra Dorsey - 01/04/2014 9:41 AM CST I spoke with pt. He informed me the reason he stopped taking the Diltiazem was due to joint pain and pounding in chest . He also said he was doing well without it until this weekend. Friday he woke up with HR at 177 bpm. He did not want to go to the ER so he took a Diltiazem. Two hours later he felt back in normal rhythm. I informed him that per Dr. Cordon, he did not have to discontinue this medication. He said he prefers to be off of it anyway and will try to hold it. I let him know if he prefers we can play this by ear and if palpitations persist, to take a Diltiazem for relief. Pt understood. CULTURAL MECHANIC * Telephone Encounter - Isidra Dorsey - 01/03/2014 3:[address] Cordon: Pt does not have to hold Diltiazem prior to procedure. CULTURAL MECHANIC * Telephone Encounter - Ryan Parsons - 01/03/2014 10:34 AM CST Pt called stating that he stopped taking his diltiazem. But he had an episode of rapid heart rate, his heart rate was 170 so he took his diltiazem at that time. Pt stated that his heart calmed down. His question is do he have to stop his diltiazem prior to his ablation next Friday, and if so how many days prior to the procedure? Please advise: Pt's number is . CULTURAL MECHANIC documented in this encounter Plan of Treatment Upcoming Encounters Date Type Department Care Team (Late st Contact Info) Description 03/22/2024 9:00 AM AGRICULTURAL MECHANIC Office Visit [facility] - Op[facility]mology [address] [place] [phone] Ernesto Hawkins MD [address] [place] [phone] documented as of this encounter Visit Diagnoses Not on filedocumented in this encounter Care Teams Poultry Picker Relationship Specialty Start Date End Date Ten Umanzor provider retired [id number] PCP - General 04/10/11 09/06/14 Stephanie Prasad RN [address] [facility] [address] [place] [address] Net Finisher 10/06/13 documented as of this encounter
--- OUTSIDE RECORDS SUMMARY | 2024-03-07 21:57 | XMS_ITS | Encounter Summary ---
Author Organization [facility] Address [address] [place] [address] Care Team Providers Care Deaf/Hard Of Hearing Specialist Name Role Phone Ten Umanzor Primary Care Provider Stephanie Patterson RN Unavailable [phone] Reason for Visit * Reason Comments Hospital Follow-up [id number] s/p Successfu l and uncomplicated ablation of typical atrial flutter circuit. Pt started on Flecainide 50mg twice a day and tolerating well. Pt here today with no current complaints. Encounter Details Date Type Department Care Team (Late st Contact Info) Description 01/17/2014 8:45 AM SUPERVISOR ROLLER PRINTING Office Visit [facility] Heart & Vascular Care [address] [place] [address] Shannon Cordon MD [address] [address] Status post ablation of atrial flutter (Primary Dx); Atrial flutter (HCC); Encounter for monitoring flecainide therapy; APC (atrial premature contractions); Chronic anticoagulation Social History Tobacco Use Types [...] Sign Reading Time Taken Comments Blood Pressure 126/90 01/17/2014 8:50 AM SUPERVISOR ROLLER PRINTING Pulse 70 01/17/2014 8:50 AM SUPERVISOR ROLLER PRINTING Temperature - - Respiratory Rate - - Oxygen Saturation - - Inhaled Oxygen Concentration - - Weight 78.5 kg (173 lb) 01/17/2014 8:50 AM SUPERVISOR ROLLER PRINTING Height 172.7 cm (5' 8 ) 01/17/2014 8:50 AM SUPERVISOR ROLLER PRINTING Body Mass Index 26.3 01/17/2014 8:50 AM SUPERVISOR ROLLER PRINTING documented in this encounter Functional Status Functional [...] * Patient Instructions* Shannon Cordon MD - 01/17/2014 9:01 AM SUPERVISOR ROLLER PRINTING Continue xarelto for 3 months Flecainide for 3 months Follow up in 3 months RVISOR ROLLER PRINTING documented in this encounter Progress Notes * Isidra Dorsey - 05/04/2014 4:31 PM CDT Note: This documentation has purposely been backdated for reference ease (form had been put in pastfax folder. Review of that folder occurred today 05/04/14). Return to work letter was faxed on 01/18/14 to [phone]. * Shannon Cordon MD - 01/17/2014 9:22 AM CST ELECTROPHYSIOLOGY OFFICE VISIT 01/17/2014 Kenji Berta Camara 1960 53 y.o. male [address] Ten Umanzor [place]: [place] [id number] [address] REASON FOR VISIT/CHIEF COMPLAINT Follow up of the following medical problems S/p Atrial flutter ablation 01/11/2014 Frequent APCs Flecainide therapy Chronic anticoagulation with Xarelto HPI Very rare palpitations immediately postsurgery but none since then. Bilateral groin tenderness. No side effects from flecainide. No bleeding on Xarelto CURRENT MEDS Outpatient Prescriptions Marked as Taking for the 01/17/14 encounter (Office Visit) with Shannon Thomas MD Medication Sig ??? rivaroxaban (XARELTO) 20 MG tablet Take 1 Tab by mouth once daily for 90 days. ??? flecainide (TAMBOCOR) 50 MG tablet Take 1 Tab by mouth 2 times daily. ??? B Complex-Folic Acid (B COMPLEX-VITAMIN B12) TABS Take 1 tablet by mouth once daily. ??? glucosamine-chondroitin (GLUCOSAMINE CHONDR COMPLEX) 500-400 MG capsule Take 1 capsule by mouthonce daily. ??? MAGNESIUM PO Take 1 tablet by mouth once daily. Patient is unsure of dosage. SYSTEMIC REVIEW no fever Vitals: 01/17/14 0850 BP: 126/90 Pulse: 70 Weight: 78.472 kg (173 lb) groin - bilateral ecchymoses, mild tenderness, no hematoma, no bruit, no thrill. GENERAL- Comfortable , No distress CVS - Normal pulse , no JVD, S1 S2, no murmur, no leg edema LUNGS - Unlabored breathing, lungs clear , no wheezes/crackles/rhonchi. PSY -Alert and oriented to person, place, and time, normal affect, normal mood MUSCULOSKELETAL - normal gait ASSESSMENT S/p Atrial flutter ablation 01/11/2014 Frequent APCs Flecainide therapy Chronic anticoagulation with Xarelto PLAN Continue Xarelto for 3 more months Continue flecainide for 3 more months Follow up in 3 months Event monitor in 3 months prior to discontinuation of medications above Shannon Cordon M.D. Cardiac Pie Dough Roller [facility] [place] [phone] (office) [phone] (pager) RVISOR ROLLER PRINTING documented in this encounter Plan of Treatment Upcoming Encounters Date Type Department Care Team (Late st Contact Info) Description 03/22/2024 9:00 AM SUPERVISOR ROLLER PRINTING Office Visit [facility] - Ophthalmology [address] [facility] [place] [phone] Ernesto Hawkins MD [address] [place] [phone] documented as of this encounter Visit Diagnoses Diagnosis Status post ablation of atrial flutter- Primary Other postprocedural status Atrial flutter (HCC) Atrial flutter Encounter for monitoring flecainide therapy Encounter for therapeutic drug monitoring APC (atrial premature contractions) Supraventricular premature beats Chronic anticoagulation Encounter for long-term (current) use of anticoagulants documented in this encounter Care Teams Deaf/Hard Of Hearing Specialist Relationship Specialty Start Date End Date Ten Umanzor provider retired [id number] PCP - General 04/10/11 09/06/14 Stephanie Prasad RN [address] [facility] [address] [place] [address] Wind Energy Project Manager 10/06/13 documented as of this encounter
--- OUTSIDE RECORDS SUMMARY | 2024-03-07 21:57 | XMS_ITS | Encounter Summary ---
Author Organization [facility] Address [address] [place] [address] Care Team Providers Care Youtuber Name Role Phone Stephanie Prasad RN Unavailable Lan Bragg DO Unavailable Elias Mayorga MD Primary Care Provider [phone] Reason for Visit * Reason Onset Date Comments Reminder Call 03/14/2015 carelink remote check Encounter Details Date Type Department Care Team (Late st Contact Info) Description 03/14/2015 Telephone [facility] Heart & Vascular Care [address] [place] [address] Shannon Cordon MD [address] [facility] [address] [place] [address] Reminder Call (carelink remote check) Social History Tobacco Use Types Packs/Day Years [...] Miscellaneous Notes * Telephone Encounter - Estefania Gresham - 03/14/2015 2:39 PM CST Spoke to patient and reminded him of his dates to do remote transmission along with doing one today RAFT MAGNETO MECHANIC documented in this encounter Plan of Treatment Upcoming Encounters Date Type Department Care Team (Late st Contact Info) Description 03/22/2024 9:00 AM AIRCRAFT MAGNETO MECHANIC Office Visit [facility] - [facility] [place] [address] Ernesto Hawkins MD [address] [place] [phone] documented as of this encounter Visit Diagnoses Not on filedocumented in this encounter Care Teams Youtuber Relationship Specialty Start Date End Date Elias Mayorga MD [address] [place] [address] PCP - General Internal Medicine 09/07/14 Stephanie Prasad RN [address] [place] [address] Fashion Merchandiser 10/06/13 Lan Bragg DO [address] [place] [address] Orthopedic Surgery 06/02/14 documented as of this encounter
--- OUTSIDE RECORDS SUMMARY | 2024-03-07 21:57 | XMS_ITS | Encounter Summary ---
Author Organization [facility] Health Address [address] [place] [address] Care Team Providers Care Marketing Rotation Associate Name Role Phone Stephanie Prasad RN Unavailable [phone] Lan Bragg DO Unavailable Elias Mayorga MD Primary Care Provider [phone] Reason for Visit * Reason Comments Refill Request Encounter Details Date Type Department Care Team (Late st Contact Info) Description 03/25/2015 Refill [facility] Heart & Vascular Care [address] [place] [address] Shannon Cordon MD [address] [address] Refill Request Social History Tobacco Use Types [...] st Contact Info) Description 03/22/2024 9:00 AM TICKET DISPATCHER Office Visit [facility] Op[facility]mology [address] [place] [phone] Ernesto Hawkins MD [address] [place] [phone] documented as of this encounter Visit Diagnoses Not on filedocumented in this encounter Care Teams Marketing Rotation Associate Relationship Specialty Start Date End Date Elias Mayorga MD [address] [facility] [address] [place] [address] PCP - General Internal Medicine 09/07/14 Stephanie Prasad RN [address] [facility] [address] [place] [address] Email Specialist 10/06/13 Lan Bragg DO [address] [facility] [address] [place] [address] Orthopedic Surgery 06/02/14 documented as of this encounter
--- OUTSIDE RECORDS SUMMARY | 2024-03-07 21:57 | XMS_ITS | Encounter Summary ---
Author Organization [facility] Address [address] [place] [address] Care Team Providers Care Licensed Practical Nurse Clinic Nurse Name Role Phone Ten Umanzor Primary Care Provider Stephanie Patterson RN Unavailable Lan Bragg DO Unavailable Reason for Visit * Auth/Cert - Closed Specialty Diagnoses / Procedures Referred By Rosa espinosa Referred To Contact Diagnoses Atrial flutter (HCC) Referral ID Status Reason Start Date Expiration Date Visits Re quested Visits Authorized [id number] Closed 1 1 Encounter Details Date Type Department Care Team (Late st Contact Info) Description 07/19/2014 8:02 AM CDT Anesthesia Event [facility] CARDIAC ETL ANALYST DEVELOPER [address] [place] [address] Nik Fraser MD [address] [facility] [place] [address] Amber Saul, GAS BLENDER-BRAKES INSPECTOR [address] [facility] [address] [place] [address] Anesthesia Record Procedure Summary Procedure Name Responsible Anesthesiologist Anesthesia Start Time Anesthesia Stop Time EPS/ Atrial Flutter Dean Fraser MD 07/19/14 0802 07/19/14 1051 Events Date Time Event Comment 07/19/2014 0802 An Start 0802 An Start Data 0803 PT Reassessment Patient and Vital Signs reassessed prior to induction. 1051 an stop data 1051 Elect Sign The providers l isted as staff are the responsible providers for the case. 1051 An Stop Meds Name Total midazolam (VERSED) 1 mg/mL injection 5 m g fentaNYL (SUBLIMAZE) injection 300 mcg lidocaine (XYLOCAINE) 2% injection 50 mg propofol (DIPRIVAN) injection 270 mg 0.9% NaCl infusion 600 mL * Agents Name Insp. N2O O2 Air * Blood No blood administrations on file. Lines, Drains, and Airways Type Details Placement Removal Peripheral IV Date: 07/19/14; Time : 731; Orientation: Right; Placed By: soledad elizondo; Tolerance: Well 07/19/14 0732 by Sanam Arias, RN 07/19/14 1443 by Sanam Arias, RN documented in this encounter Social History [...] as of this encounter Progress Notes * Amber Saul, GAS BLENDER-BRAKES INSPECTOR - 07/19/2014 10:51 AM CDT ANESTHESIA POSTPROCEDURE EVALUATION Kenji Camara is a 53 y.o. male Temp: 36.6 ??C Pulse: 68 Resp: 20 BP: 113/85 mmHg SpO2: 98 % Pain Rating Score #1: 0 Anesthesia Type: MAC Mental status: sufficiently recovered [...] the following assessment: no apparent anesthesia complications documented in this encounter Consult Notes * Kg Amber Jordan, GAS BLENDER-BRAKES INSPECTOR - 07/19/2014 7:24 AM CDT Pre-anesthesia Evaluation * No surgery found * Vital Signs: BMI: Estimated body mass index is 26.61 kg/(m^2) as calculated from the following: Height as of 04/21/14: 1.727 m (5' 8 ). Weight as of 04/21/14: 79.379 kg (175 lb). History: Past Medical History Diagnosis Date ??? Atrial flutter 12/30/2013 ??? S/P ablation of atrial flutter 01/11/14 [facility]; Successful and uncomplicated ablation of typical atrial flutter circuit, Past Surgical History Procedure Laterality Date ??? Shoulder arthroscopy ??? Carpal tunnel surgery ??? Hernia repair, inguinal 04/11/11 ??? Ablation for atrial fibrillation/flutter 01/11/14 [facility]; Successful and uncomplicated ablation of [...] BY MOUTH TWICE DAILY 180 Tab 2 ??? B Complex-Folic Acid (B COMPLEX-VITAMIN B12) [...] BY MOUTH TWICE DAILY 180 Tab 2 ??? B Complex-Folic Acid (B COMPLEX-VITAMIN B12) TABS Take 1 tablet by mouth once daily. ??? glucosamine-chondroitin (GLUCOSAMINE CHONDR COMPLEX) 500-400 MG capsule Take 1 capsule by mouthonce daily. ??? MAGNESIUM PO Take 1 tablet by mouth once daily. Patient is unsure of dosage. Physical Exam: NPO status: no solids since midnight, no liquids within 2 hours Oriented to [...] Plan accepted yes Discussed anesthesia plan with: BRAKES INSPECTOR and anesthesiologist. documented in this encounter Plan of Treatment Upcoming Encounters Date Type Department Care Team (Late st Contact Info) Description 03/22/2024 9:00 AM FILM PROCESSING UTILITY WORKER Office Visit [facility] - Ophthalmology [address] [place] [address] Ernesto Hawkins MD [facility] [place] [phone] documented as of this encounter Visit Diagnoses Not on filedocumented in this encounter Administered Medications Inactive Administered Medications - up to 3 most recent administrations Medication Order MAR Action Action Date Dose Rate Site 0.9% NaCl infusion CONTINUOUS PRN, Starting on Fri07/19/14 at 0730, Until Fri07/19/14 at 1052, Anesthesia Intra-op $ New Bag/Syringe 07/19/2014 10:10 AM CDT $ New Bag/Syringe 07/19/2014 7:30 AM CDT fentaNYL (SUBLIMAZE) injection PRN, Starting on Fri07/19/14 at 0822, Until Fri07/19/14 at 1052, Anesthesia Intra-op $ Given 07/19/2014 10:20 AM CDT 50 mcg $ Given 07/19/2014 10:13 AM CDT 50 mcg $ Given 07/19/2014 9:45 AM CDT 50 mcg lidocaine (XYLOCAINE) 2 % injection PRN, Starting on Fri07/19/14 at 0805, Until Fri07/19/14 at 1052, Anesthesia Intra-op $ Given 07/19/2014 8:05 AM CDT 50 mg midazolam (VERSED) injection PRN, Starting on Fri07/19/14 at 0822, Until Fri07/19/14 at 1052, Anesthesia Intra-op $ Given 07/19/2014 9:53 AM CDT 1 m g $ Given 07/19/2014 9:23 AM CDT 1 mg $ Given 07/19/2014 9:10 AM CDT 1 mg propofol (DIPRIVAN) injection PRN, Starting on Fri07/19/14 at 0805, Until Fri07/19/14 at 1052, Anesthesia Intra-op $ Given 07/19/2014 10:27 AM CDT 50 mg $ Given 07/19/2014 8:44 AM CDT 100 mg $ Given 07/19/2014 8:05 AM CDT 120 mg documented in this encounter Care Teams Licensed Practical Nurse Clinic Nurse Relationship Specialty Start Date End Date Ten Umanzor provider retired [id number] PCP - General 04/10/11 09/06/14 Stephanie Prasad RN [address] [place] [address] Patient Care Technician 10/06/13 Lan Bragg DO [address] [facility] [address] [place] [address] Orthopedic Surgery 06/02/14 documented as of this encounter
--- OUTSIDE RECORDS SUMMARY | 2024-03-07 21:57 | XMS_ITS | Encounter Summary ---
Author Organization [facility] Address [address] [facility] [place] [address] Care Team Providers Care Senior Rd Engineer Name Role Phone Ten Umanzor Primary Care Provider Stephanie Patterson RN Unavailable Lan Bragg DO Unavailable Reason for Visit * Reason Comments Follow-up RV/ left hip pain as sessment/ request injection Encounter Details Date Type Department Care Team (Late st Contact Info) Description 06/27/2014 2:10 PM CDT Office Visit [facility] Orthopedics [address] [address] [place] [address] [address] Trochanteric bursitis, left (Primary Dx) Social History Tobacco Use Types [...] Progress Notes * Jazmyne Lindsey RN - 06/27/2014 2:24 PM CDT Left trochanteric bursa injection given * Geovanna Marin MA - 06/27/2014 2:18 PM CDT RV/ left hip pain assessment/ request injection documented in this encounter H&P Notes * Lan Bragg DO - 06/28/2014 5:20 AM CDT DATE OF SERVICE: 06/27/2014 EXAMINATION: Continued to have trochanteric bursitis. TREATMENT: Given anterior peritendinous injection 80 mg of Depo-Medrol. Return to the office in 1 month. Lan Bragg D.O. Electronically Signed 06/28/2014 07:34:57 TJW/MedQ #: [id number] documented in this encounter Plan of Treatment Upcoming Encounters Date Type Department Care Team (Late st Contact Info) Description 03/22/2024 9:00 AM PHOTOGRAPHIC REPRODUCTION TECHNICIAN Office Visit [facility] - Ophthalmology [address] [place] [phone] Ernesto Hawkins MD [address] [place] [address] documented as of this encounter Visit Diagnoses Diagnosis Trochanteric bursitis, left- Primary documented in this encounter Administered Medications Administered Medications Medication Order MAR Action Action Date Dose Rate Site Methylprednlsolone 80mg Intraarticular Given 06/27/2014 1 mL Left Hip documented in this encounter Care Teams Senior Rd Engineer Relationship Specialty Start Date End Date Ten Umanzor provider retired [id number] PCP - General 04/10/11 09/06/14 Stephanie Prasad RN [address] [place] [address] Defensive Secondary Coach 10/06/13 Lan Bragg DO [address] [facility] [address] [place] [address] Orthopedic Surgery 06/02/14 documented as of this encounter
--- OUTSIDE RECORDS SUMMARY | 2024-03-07 21:57 | XMS_ITS | Encounter Summary ---
Author Organization [facility] Address [address] [place] [place] [address] Care Team Providers Care Hedge Trimmer Name Role Phone Ten Umanzor Primary Care Provider Stephanie Patterson RN Unavailable [phone] Lan Bragg DO Unavailable Reason for Visit * Reason Comments Follow-up left trochanteric bu rsitis Encounter Details Date Type Department Care Team (Late st Contact Info) Description 06/16/2014 3:45 PM CDT Office Visit [facility] Orthopedics [address] [address] [place] [address] [address] Trochanteric bursitis, left (Primary Dx) [...] this encounter Patient Instructions * Patient Instructions* Hailey Bangura - 06/16/2014 3:49 PM CDT If there is any change or any worsening symptoms, of course, we would like for them to let us know. documented in this encounter Progress Notes * Hailey Bangura - 06/16/2014 3:49 PM CDT left trochanteric bursitis documented in this encounter H&P Notes * Lan Bragg DO - 06/17/2014 12:25 PM CDT DATE OF SERVICE: 06/16/2014 EXAMINATION: Has full nonrestrictive range of motion of his hip. No swelling, erythema, or drainage. He has much less tenderness. TREATMENT: He is released for unlimited activity. Return to the office with problems. Lan Bragg D.O. Electronically Signed 06/20/2014 10:10:22 OMAYRA/Dante #: [id number] documented in this encounter Plan of Treatment Upcoming Encounters Date Type Department Care Team (Late st Contact Info) Description 03/22/2024 9:00 AM FAST FOOD WORKER Office Visit [facility] - Ophthalmology [address] [place] [phone] Ernesto Hawkins MD [address] [place] [address] documented as of this encounter Visit Diagnoses Diagnosis Trochanteric bursitis, left- Primary documented in this encounter Care Teams Hedge Trimmer Relationship Specialty Start Date End Date ErnaTen Manuel provider retired [id number] PCP - General 04/10/11 09/06/14 Stephanie Prasad, RN [address] [facility] [address] [place] [id number] Senior Tax Accountant 10/06/13 Lan Bragg DO [address] [facility] [address] [place] [address] Orthopedic Surgery 06/02/14 documented as of this encounter
--- OUTSIDE RECORDS SUMMARY | 2024-03-07 21:57 | XMS_ITS | Encounter Summary ---
Author Organization [facility] Address [address] [place] [address] Care Team Providers Care Satellite Specialist Name Role Phone Ten Umanzor Primary Care Provider Stephanie Patterson RN Unavailable [phone] [address] Bragg DO Unavailable Reason for Visit * Reason Comments Lower Extremity Problem PARENT AIDE/left hip/no x r have been taken Encounter Details Date Type Department Care Team (Late st Contact Info) Description 06/02/2014 3:00 PM CDT Office Visit [facility] Orthopedics [id number] [place] [address] [place] [address] [place] [address] [address] Trochanteric bursitis, left (Primary Dx); Left hip pain Social History Tobacco Use Types Packs/Day Years [...] as of this encounter Progress Notes * Darlin Pollard MA - 06/02/2014 2:33 PM CDT PARENT AIDE/left hip/no xr have been taken documented in this encounter H&P Notes * Lan Bragg DO - 06/03/2014 3:59 AM CDT DATE OF SERVICE: 06/02/2014 LOCATION: [facility] [address] HISTORY: He has a dull ache to sharp pain in his trochanteric bursa with the insidious onset of these symptoms. It hurts for him to lie on his side. There is no specific trauma. He is taking no medications. EXAMINATION: He has full nonrestrictive range of motion of his hip with exquisite tenderness about the trochanteric bursa. No sciatic tenderness. Reflexes are intact and equal. Good toe extensor strength. X-RAYS: X-rays revealed good bone density. There is no subluxation or dislocation. No signs of tumor or infection of his left hip and his trochanteric bursitis. TREATMENT: Given peritendinous injection, 80 mg of Depo-Medrol, and return to the office in 2 weeks. Lan Bragg D.O. Electronically Signed 06/03/2014 10:30:04 OMAYRA/Dante #: [id number] documented in this encounter Procedure Notes * Bianca Vidales - 06/02/2014 2:46 PM CDTAssociated Order(s): XR HIP 2+ VW LEFT Please see progress notes for result. documented in this encounter Plan of Treatment Upcoming Encounters Date Type Department Care Team (Late st Contact Info) Description 03/22/2024 9:00 AM SPECIAL FORCES WARRANT OFFICER Office Visit [facility] - Ophthalmology [address] [facility] [place] [address] Ernesto Hawkins MD [address] [place] [phone] documented as of this encounter Procedures Procedure Name Priority Date/Time Associated Diagnosis Comments XR HIP LEFT 2VW OR MORE Routine 06/02/2014 2:45 PM CDT Left hip pain documented in this encounter Results * XR HIP 2+ VW LEFT (06/02/2014 2:45 PM CDT) Anatomical Region Laterality Modality Pelvis, Lower Extremity Radiogra phic Imaging Narrative 06/02/2014 3:11 PM CDT Bianca Vidales ? 06/02/2014 ??3:11 PM Please see progress notes for result. Lan Bragg DO DIAGNOSTIC IMAGING O RDERABLES documented in this encounter Visit Diagnoses Diagnosis Trochanteric bursitis, left- Primary Left hip pain Pain in joint, pelvic region and thigh documented in this encounter Administered Medications Administered Medications Medication Order MAR Action Action Date Dose Rate Site Methylprednlsolone 80mg Intraarticular Given 06/02/2014 80 mg Left Hip documented in this encounter Care Teams Satellite Specialist Relationship Specialty Start Date End Date Ten Umanzor provider retired [id number] PCP - General 04/10/11 09/06/14 Stephanie Prasad RN [address] [place] [address] Neurosurgery Spine Physician 10/06/13 Lan Bragg DO [address] [facility] [address] [place] [address] Orthopedic Surgery 06/02/14 documented as of this encounter
--- OUTSIDE RECORDS SUMMARY | 2024-03-07 21:57 | XMS_ITS | Encounter Summary ---
Author Organization [facility] Address [address] [place] [address] Care Team Providers Care Aggregate Conveyor Operator Name Role Phone Ten Umanzor Primary Care Provider Stephanie Patterson RN Unavailable Lan Bragg DO Unavailable Reason for Visit * Reason Onset Date Comments Question 06/27/2014 Encounter Details Date Type Department Care Team (Late st Contact Info) Description 06/27/2014 Telephone [facility] Orthopedics [address] [facility] [address] [place] [address] [place] [address] [address] Question Social History Tobacco Use Types Packs/Day [...] encounter Miscellaneous Notes * Telephone Encounter - Cassia Brito F - 06/27/2014 11:55 AM CDT Returned call - made appointment for this afternoon. * Telephone Encounter - Kristy Clayton R - 06/27/2014 11:04 AM CDT Patient called stating that Dr. Bragg advised him to call to receive an injection and he can be worked in. Please advise patient when he will be able to get in. documented in this encounter Plan of Treatment Upcoming Encounters Date Type Department Care Team (Late st Contact Info) Description 03/22/2024 9:00 AM GUN SEALING MACHINE OPERATOR Office Visit [facility] - Ophthalmology [address] [place] [phone] Ernesto Hawkins MD [address] [place] [address] documented as of this encounter Visit Diagnoses Not on filedocumented in this encounter Care Teams Aggregate Conveyor Operator Relationship Specialty Start Date End Date Ten Umanzor provider retired [id number] PCP - General 04/10/11 09/06/14 Stephanie Prasad RN [address] [facility] [address] [place] [address] Hospice Volunteer Coordinator 10/06/13 Lan Bragg DO [address] [facility] [address] [place] [address] Orthopedic Surgery 06/02/14 documented as of this encounter
--- OUTSIDE RECORDS SUMMARY | 2024-03-07 21:57 | XMS_ITS | Encounter Summary ---
Author Organization [facility] Address [address] [place] [address] Care Team Providers Care Photo Studio Assistant Name Role Phone Ten Umanzor Primary Care Provider Stephanie Patterson RN Unavailable [phone] Reason for Visit * Reason Comments Holter Monitor Encounter Details Date Type Department Care Team ([facility] Contact Info) Description 01/26/2014 9:45 AM OPTOMETRY TEACHER Procedure visit [facility] [address] [place] [address] Palpitations Social History Tobacco Use Types Packs/Day [...] No 01/11/2014 documented as of this encounter Procedure Notes * Lizet Guy - 01/31/2014 3:15 PM CSTAssociated Order(s): HOLTER MONITOR Pre-Procedure Diagnose(s): Atrial flutter (HCC); Racing heart beat; Palpitations [facility] [address] [address] Patient Information Patient Name: Kenji Camara Gender: male : 1960 Duration: 47:34 Hookup Date: 01/26/2014 Indications: palpitations Holter Report Summary Total QRS Complexes: 973123 Ventricular Ectopics: 1149 Supraventricular Ectopics: 12 Heart [...] Holter monitor( details above) Shannon Cordon MD METRY TEACHER documented in this encounter Plan of Treatment Upcoming Encounters Date Type Department Care Team (Late st Contact Info) Description 03/22/2024 9:00 AM OPTOMETRY TEACHER Office Visit [facility] - Ophthalmology [address] [place] [address] Ernesto Hawkins MD [address] [place] [phone] documented as of this encounter Procedures Procedure Name Priority Date/Time Associated Diagnosis Comments HOLTER MONITOR Routine 02/09/2014 12:32 PM OPTOMETRY TEACHER Palpitations documented in this encounter Visit Diagnoses Diagnosis Palpitations- Primary documented in this encounter Care Teams Photo Studio Assistant Relationship Specialty Start Date End Date Ten Umanzor provider retired [id number] PCP - General 04/10/11 09/06/14 Stephanie Prasad RN [address] [facility] [address] [place] [address] Process Developer 10/06/13 documented as of this encounter
--- OUTSIDE RECORDS SUMMARY | 2024-03-07 21:57 | XMS_ITS | Encounter Summary ---
Author Organization [facility] Address [address] [place] [address] Care Team Providers Care Screw Cutter Name Role Phone Stephanie Prasad RN Unavailable [phone] Lan Bragg DO Unavailable Elias Mayorga MD Primary Care Provider [phone] Reason for Visit * Reason Comments Refill Request Encounter Details Date Type Department Care Team (Late st Contact Info) Description 03/26/2015 Refill [facility] [address] [place] [address] Shannon Cordon MD [address] [address] Refill Request Social History Tobacco Use Types [...] encounter Miscellaneous Notes * Telephone Encounter - Rayn Parsons - 03/27/2015 1:24 PM CST Pt called requesting refill. Pt is to take Flecainide 100mg BID, per Dr. Cordon's last note, not 50mg BID. This encounter closed, and created a new refill request with correct dosage. LY CHAIN INTERN * Telephone Encounter - Isidra Dorsey - 03/27/2015 10:30 AM CST Kenji Camara was last seen in [facility] on 03/25/2015 Next appointment is: 05/08/15 Medication order and pended. Needs to be signed Recent Labs Component Name 10/06/13 0923 ALBUMIN 4.1 ALKPHOS 63 ALT 39 AST 25 TBIL 0.7 TPROT 7.6 Recent Labs Component Name 10/18/13 0841 TSH 1.79 LY CHAIN INTERN documented in this encounter Plan of Treatment Upcoming Encounters Date Type Department Care Team (Late st Contact Info) Description 03/22/2024 9:00 AM SUPPLY CHAIN INTERN Office Visit [facility] - Ophthalmology [address] [place] [phone] Ernesto Hawkins MD [facility] [place] [phone] documented as of this encounter Visit Diagnoses Not on filedocumented in this encounter Care Teams Screw Cutter Relationship Specialty Start Date End Date Elias Mayorga MD [address] [facility] [address] [place] [address] PCP - General Internal Medicine 09/07/14 Stephanie Prasad RN [address] [facility] [address] [place] [address] Director Maternal Child 10/06/13 Lan Bragg DO [address] [facility] [address] [place] [address] Orthopedic Surgery 06/02/14 documented as of this encounter
--- OUTSIDE RECORDS SUMMARY | 2024-03-07 21:57 | XMS_ITS | Encounter Summary ---
Author Organization [facility] Address [address] [place] [address] Care Team Providers Care Cycle Repairer Name Role Phone Ten Umanzor Primary Care Provider Stephanie Patterson RN Unavailable [phone] Lan Bragg DO Unavailable Reason for Visit * Reason Onset Date Comments Question 06/22/2014 Encounter Details Date Type Department Care Team (Late st Contact Info) Description 06/22/[address] [facility] [address] [place] [address] Shannon Cordon MD [address] [address] Question Social History Tobacco Use Types Packs/Day [...] * Telephone Encounter - Isidra Dorsey - 06/24/2014 3:55 PM CDT Pt scheduled for repeat aflutter ablation on 07/19/14 @ 8:00 [facility] [address] Cordon. I let patient know I would review meds with Dr. Cordon and send reminder letter to his home. Pt voiced understanding. * Telephone Encounter - Shanthi Dailey MA - 06/22/2014 9:51 AM CDT Patient was calling stating he talked to Dr Cordon this morning please call him back @ [phone] documented in this encounter Plan of Treatment Upcoming Encounters Date Type Department Care Team (Late st Contact Info) Description 03/22/2024 9:00 AM RADIATOR FITTER Office Visit [facility] - Op[facility]mology [address] [place] [phone] Ernesto Hawkins MD [address] [place] [phone] documented as of this encounter Visit Diagnoses Not on filedocumented in this encounter Care Teams Cycle Repairer Relationship Specialty Start Date End Date Ten Umanzor provider retired [id number] PCP - General 04/10/11 09/06/14 Stephanie Prasad RN [address] [facility] [address] [place] [address] Play Leader 10/06/13 Lan Bragg DO [address] [facility] [address] [place] [address] Orthopedic Surgery 06/02/14 documented as of this encounter
--- OUTSIDE RECORDS SUMMARY | 2024-03-07 21:57 | XMS_ITS | Encounter Summary ---
Author Organization [facility] Health Address [address] [place] [address] Care Team Providers Care Returner Name Role Phone Ten Umanzor Primary Care Provider Stephanie Patterson RN Unavailable Encounter Details Date Type Department Care Team (Latest Contact Info) Description 05/10/2014 8:00 AM CDT - 05/10/2014 11:59 PM T Hospital Encounter [facility] Imaging Services - Radiology [address] [place], [place] [id number] Ten Umanzor provider retired [id number] Discharge Disposition: Home or Self Care Social [...] 1 tablet by mouth once daily. 07/25/2014 glucosamine-chondroitin (GLUCOSAMINE CHONDR COMPLEX) 500-400 MG capsule Take 1 capsule by mouth once daily. 07/25/2014 MAGNESIUM PO Take 1 tablet by mouth once daily. Patient is unsure of dosage. 07/25/2014 documented as of this encounter Plan of Treatment Upcoming Encounters Date Type Department Care Team (Late st Contact Info) Description 03/22/2024 9:00 AM MANAGER PROCESS Office Visit [facility] - Ophthalmology [address] [facility], [place] [phone] Ernesto Hawkins MD [address] [place] [phone] documented as of this encounter Procedures Procedure Name Priority Date/Time Associated Diagnosis Comments XR LUMBAR SPINE 2 OR 3VW Routine 05/10/2014 8:18 AM CDT Low back pain documented in this encounter Results * XR LUMBAR SPINE 2 OR 3 [...] preserved. Ten Umanzor DIAGNOSTIC IMAGING O RDERABLES documented in this encounter Visit Diagnoses Diagnosis Low back pain Lumbago documented in this encounter Care Teams Returner Relationship Specialty Start Date End Date Ten Umanzor provider retired [id number] PCP - General 04/10/11 09/06/14 Stephanie Prasad, RN [address] [facility] [address] [place] [address] Medical Claims Assistant 10/06/13 documented as of this encounter
--- OUTSIDE RECORDS SUMMARY | 2024-03-07 21:57 | XMS_ITS | Encounter Summary ---
Author Organization [facility] Address [address] [facility] [place] [address] Care Team Providers Care Prepress Operator Name Role Phone Ten Umanzor Primary Care Provider Stephanie Patterson RN Unavailable [phone] Lan Bragg DO Unavailable Reason for Visit * Reason Comments Hospital Follow-up Pt here today for a HFU s/p EP Study for recurrent Atrial Flutter. During procedure on AF was produced. No ablation performed. Pt has been feeling fatigued and sore since procedure. At this time, patient is unsure of palps Sx. Normally he has sweats and rapid heart beats. Currently this has not be reproduced. Encounter Details Date Type Department Care Team (Late st Contact Info) Description 07/25/2014 1:30 PM CDT Office Visit [facility] Heart & Vascular Care [address] [place] [phone] Shannon Cordon MD [address] [facility] [address] [place] [address] Typical atrial flutter (HCC) (Primary Dx); S/P ablation of atrial flutter; SVT (supraventricular tachycardia); Encounter for monitoring flecainide therapy; Chronic anticoagulation [...] Reading Time Taken Comments Blood Pressure 124/84 07/25/2014 1:51 PM CDT Pulse 69 07/25/2014 1:51 PM CDT Temperature - - Respiratory Rate - - Oxygen Saturation - - Inhaled Oxygen Concentration - - Weight 79.4 kg (175 lb) 07/25/2014 1:51 PM CDT Height 172.7 cm (5' 8 ) 07/25/2014 1:51 PM CDT Body Mass Index 26.61 07/25/2014 1:51 PM CDT documented in this encounter Functional [...] * Patient Instructions* Shannon Cordon MD - 07/25/2014 2:23 PM CDT We will schedule you for a sleep study Follow up in 3 months Continue flecainide for now Anticoagulation for 1 month documented in this encounter Progress Notes * Shannon Cordon MD - 07/25/2014 2:23 PM CDT ELECTROPHYSIOLOGY OFFICE VISIT 07/25/2014 Kenji Camara 1960 53 y.o. male [id number] Ten Umanzor [place]: [place] [address] [facility] [address] [place] [id number] REASON FOR VISIT/CHIEF COMPLAINT Follow up of the following medical problems Hx of atrial flutter s/p ablation SVT S/p repeat EP study with no inducible arrhythmia besides AF Flecainide therapy Current anticoagulation therapy HPI 53 yr old man with a past [...] he experienced the sudden onset of palpitations. AnEKG revealed a regular narrow complex tachycardia at a rate of 158 beats per min. This did not havea typical flutter pattern but there were baseline deflections that look like P-waves in lead V1 butalso look like possibly atypical flutter waves in the inferior leads. After reviewing his options which include antiarrhythmic therapy versus repeat BP study he readily elected to have a repeat EP study. Repeat EP study did not resulting induction of any arrhythmia besides atrial fibrillation. The integrity of the flutter line was intact. By process of elimination, SVT is most likely an atrial tachycardia. Given the easily inducible atrial fibrillation, it is possible that the atrial tachycardia is actually a pulmonary vein tachycardia. since EP study, the patient has had a slow recovery. He feels back to his baseline now. No definite palpitations. The patient is quite anxious about his palpitations now. He is taking flecainide 50 mg twice daily. He is having no side effects from flecainide. He is taking Xarelto for stroke prophylaxis just for a month. No bleeding from that. CURRENT MEDS Outpatient Prescriptions Marked as Taking for the 07/25/14 encounter (Office Visit) with Shannon Cordon MD Medication Sig ??? methylPREDNISolone acetate (DEPO-MEDROL) 80 MG/ML injection 1 mL by Intra- articular route once for 1 dose. ??? rivaroxaban (XARELTO) 20 MG tablet Take 20 mg by mouth once daily. ??? flecainide (TAMBOCOR) 50 MG tablet TAKE 1 TABLET BY MOUTH TWICE DAILY SYSTEMIC REVIEW No fever Groins healed Vitals: 07/25/14 1351 BP: 124/84 Pulse: 69 Weight: 79.379 kg (175 lb) GENERAL- Comfortable , No distress CVS [...] is actually a pulmonary vein tachycardia. PLAN Sleep study Continue flecainide for now Anticoagulation for 1 month Follow up in 3 months Shannon Cordon M.D. Cardiac Kettle Operator [facility] [phone] (office) [phone] (pager) documented in this encounter Plan of Treatment Upcoming Encounters Date Type Department Care Team (Late st Contact Info) Description 03/22/2024 9:00 AM WOODWORKING MACHINE FEEDER Office Visit [facility] - Ophthalmology [address] [place] [phone] Ernesto Hawkins MD [address] [place] [phone] documented as of this encounter Visit Diagnoses Diagnosis Typical atrial flutter (HCC)- Primary Atrial flutter S/P ablation of atrial flutter Other postprocedural status SVT (supraventricular tachycardia) (HCC) Other specified cardiac dysrhythmias Encounter for monitoring flecainide therapy Encounter for therapeutic drug monitoring Chronic anticoagulation Encounter for long-term (current) use of anticoagulants documented in this encounter Care Teams Prepress Operator Relationship Specialty Start Date End Date Ten Umanzor provider retired [id number] PCP - General 04/10/11 09/06/14 Stephanie Prasad RN [address] [facility] [address] [place] [address] Pony Ride Operator 10/06/13 Lan Bragg DO [address] [facility] [address] [place] [address] Orthopedic Surgery 06/02/14 documented as of this encounter
--- OUTSIDE RECORDS SUMMARY | 2024-03-07 21:57 | XMS_ITS | Encounter Summary ---
Author Organization [facility] Address [address] [facility] [place] [address] Care Team Providers Care Scouts Name Role Phone eTn Umanzor Primary Care Provider Stephanie Patterson RN Unavailable Reason for Visit * Reason Onset Date Comments Encounter Opened In Error 02/21/2014 Encounter Details Date Type Department Care Team ([facility] Contact Info) Description 12/07/2013 Telephone [facility] Heart & Vascular Care [address] [place] [phone] [place] [address] [phone] Encounter Opened In Error Social History Tobacco Use Types Packs/Day Years [...] encounter Miscellaneous Notes * Telephone Encounter - Jelena Bello - 02/21/2014 5:55 PM CST Kenji Berta Camara encounter was opened in error. Please disregard any activity associated with this encounter. O CHECKER AND ASSEMBLER documented in this encounter Plan of Treatment Upcoming Encounters Date Type Department Care Team (Late st Contact Info) Description 03/22/2024 9:00 AM PHOTO CHECKER AND ASSEMBLER Office Visit [facility] - Ophthalmology [address] [place] [phone] Ernesto Hawkins MD [address] [place] [phone] documented as of this encounter Visit Diagnoses Diagnosis ERRONEOUS ENCOUNTER--DISREGARD- Primary documented in this encounter Care Teams Scouts Relationship Specialty Start Date End Date Ten Umanzor provider retired [id number] PCP - General 04/10/11 09/06/14 Stephanie Prasad, RN [address] [facility] [address] [place] [address] Roustabout 10/06/13 documented as of this encounter
--- OUTSIDE RECORDS SUMMARY | 2024-03-07 21:57 | XMS_ITS | Encounter Summary ---
Author Organization [facility] Address [address] [facility] [place] [address] Care Team Providers Care Client Account Manager Name Role Phone Ten Umanzor Primary Care Provider Stephanie Patterson RN Unavailable [phone] Lan Bragg DO Unavailable Reason for Visit * Reason Comments Refill Request Encounter Details Date Type Department Care Team (Late st Contact Info) Description 06/22/2014 Refill [facility] Heart & Vascular Care [address] [place] [address] Shannon Cordon MD [address] [address] Refill Request Social History Tobacco Use Types [...] Contact Info) Description 03/22/2024 9:00 AM SENIOR MORTGAGE LOAN PROCESSOR Office Visit [facility] - Ophthalmology [address] [facility] [place] [phone] Ernesto Hawkins MD [address] [place] [phone] documented as of this encounter Visit Diagnoses Not on filedocumented in this encounter Care Teams Client Account Manager Relationship Specialty Start Date End Date Ten Umanzor provider retired [id number] PCP - General 04/10/11 09/06/14 Stephanie Prasad RN [address] [facility] [address] [place] [address] Spider Assembler 10/06/13 Lan Bragg DO [address] [facility] [address] [place] [address] Orthopedic Surgery 06/02/14 documented as of this encounter
--- OUTSIDE RECORDS SUMMARY | 2024-03-07 21:57 | XMS_ITS | Encounter Summary ---
Author Organization [facility] Address [address] [facility] [place] [address] Care Team Providers Care Marine Water Tender Name Role Phone Stephanie Prasad RN Unavailable [phone] Lan Bragg DO Unavailable Elias Mayorga MD Primary Care Provider [phone] Reason for Visit * Reason Onset Date Comments Update 11/25/2014 Carelink dates Encounter Details Date Type Department Care Team (Late st Contact Info) Description 11/25/2014 Telephone [facility] Heart & Vascular Care [address] [place] [address] Shannon Cordon MD [address] [address] Update (Carelink dates) Social History Tobacco Use Types Packs/Day Years [...] * Telephone Encounter - Molly Lozoya - 11/25/2014 11:40 AM CDT Left message for patient to call office. Mr. Camara has been scheduled for his future [employer] Carelink transmission dates on 12/28/14, 03/14/15, 05/16/15, 07/17/15, 09/11/15 and 11/13/15 documented in this encounter Plan of Treatment Upcoming Encounters Date Type Department Care Team (Late st Contact Info) Description 03/22/2024 9:00 AM FACILITIES ENGINEERING MANAGER Office Visit [facility] - Ophthalmology [address] [place] [phone] Ernesto Hawkins MD [address] [place] [phone] documented as of this encounter Visit Diagnoses Not on filedocumented in this encounter Care Teams Marine Water Tender Relationship Specialty Start Date End Date Elias Mayorga MD [address] [facility] [address] [place] [address] PCP - General Internal Medicine 09/07/14 Stephanie Prasad RN [address] [facility] [address] [place] [address] Braker Passenger Train 10/06/13 Lan Bragg DO [address] [facility] [address] [place] [address] Orthopedic Surgery 06/02/14 documented as of this encounter
--- OUTSIDE RECORDS SUMMARY | 2024-03-07 21:57 | XMS_ITS | Encounter Summary ---
Author Organization [facility] Address [address] [place] [address] Care Team Providers Care Electric Fork Operator Name Role Phone Ten Umanzor Primary Care Provider Stephanie Patterson RN Unavailable Lan Bragg DO Unavailable Reason for Visit * Auth/Cert - Closed Specialty Diagnoses / Procedures Referred By Rosa espinosa Referred To Contact Diagnoses Atrial flutter (HCC) Referral ID Status Reason Start Date Expiration Date Visits Re quested Visits Authorized [id number] Closed 1 1 Encounter Details Date Type Department Care Team (Latest Contact Info) Description 07/19/2014 6:26 AM CDT - 07/19/2014 3:00 PM CDT Hospital Encounter [facility] [address] [place] [address] Shannon Cordon MD [address] [facility] [address] [place] [address] Cardiac Catheterization Discharge Disposition: Home or Self [...] Sign Reading Time Taken Comments Blood Pressure 115/82 07/19/2014 1:27 PM CDT Pulse 63 07/19/2014 1:27 PM CDT Temperature 36.6 ??C (97.8 ??F) 07/19/2014 7:26 AM CD T Respiratory Rate 14 07/19/2014 1:27 PM CDT Oxygen Saturation 96% 07/19/2014 1:27 PM CDT Inhaled Oxygen Concentration - - Weight 81.6 kg (180 lb) 07/19/2014 7:26 AM CDT Height 172.7 cm (5' 7.99 ) 07/19/2014 7:26 AM CD T Body Mass Index 27.38 07/19/2014 7:26 AM CDT documented in this encounter Functional [...] No 01/11/2014 documented as of this encounter Discharge Instructions * Discharge Instructions* Charity Ford RN - 07/19/2014 2:33 PM CDT Moderate Sedation WHAT YOU SHOULD KNOW: ?? Moderate sedation can be used during procedures or surgeries to help you feel relaxed and calm. Moderate sedation used to be called conscious sedation. With moderate sedation, you stay awake during the procedure or surgery, and your breathing and heart rate do not change. You are able to follow commands and answer questions during the procedure. Procedural sedation is when medicine is given tomake you better able to cope with procedures that may be uncomfortable. ?? Moderate sedation can be used for surgeries such as collecting tissue or fluid samples, or repairing a broken bone. It can be used for cleaning and repairing wounds, or for certain kinds of brain surgery. It can be used for procedures such as a bronchoscopy, colonoscopy, or thoracoscopy. It may also be used for certain heart treatments or dental work. Having moderate sedation will help decrease your anxiety (worry) about your procedure. It will also keep you comfortable and calm while havingyour procedure. INSTRUCTIONS: Take your medicine as directed: Call your primary healthcare provider if you think your medicine isnot helping or if you have side effects. Tell him if you are allergic to any medicine. Keep a list of the medicines, vitamins, and herbs you take. Include the amounts, and when and why you take them.Bring the list or the pill bottles to follow-up visits. Carry your medicine list with you in case of an emergency. Ask for information about where and when to go for follow-up visits: For continuing care, treatments, or home services, ask for more information. Medicines given for moderate sedation: Medicines that are given for moderate sedation may be given as a pill, shot, or through your anus. Medicine may also be breathed into your lungs, or given through an intravenous (IV) tube. An IV is a tube that is placed in your vein. You may be given one or more of the following medicines: ?? Anesthesia: This is medicine that will help you feel more comfortable during surgery. ?? Antianxiety medicine: This medicine may be given to decrease anxiety and help you feel calm and relaxed. ?? Narcotics: This group of medicines may be given for pain during or after a procedure. ?? Sedative: This medicine is given to help you stay calm and relaxed. Risks of moderate sedation: ?? The medicine used for moderate sedation may cause you to get a headache or an upset stomach. Themedicine might make forget things that have happened recently. The medicine may make your skin itchy, your eyes water, or they may increase your saliva (spit). Having too little medicine will make you uneasy and feel pain during the procedure. You may also feel like moving when you need to hold still. If the medicine does not wear off in a certain time, you may be given medicine to help you become more alert. ?? If you get more medicine than you need, you may go into a deeper level of sedation. With deep sedation, you may need help breathing, and your blood pressure may decrease. Ask caregivers for more information about deep sedation. If you have heart or lung disease, or you have a head injury, you are at a higher risk having problems. These problems can happen during or after you get moderate sedation. Older adults, people who use illegal (street) drugs, or those who drink too much alcohol too often are at a greater risk of having problems. Alcohol is found in adult drinks such as beer, wine and whiskey. Ask your caregiver if you have questions or concerns about having moderate sedation. What to do when you go home after having moderate sedation: ?? Do not drive a car or use heavy equipment. An adult should drive you home and stay with you after you have had moderate sedation. ?? Follow your caregiver's advice about making changes to your diet, activity, or medicine. Avoid hard exercise right after having moderate sedation. Do not drink alcohol, such as beer and wine. Do not make important decisions for 24 hours (one day) after having moderate sedation. ?? Take antinausea medicine as ordered. This medicine may be given to calm your stomach and help stop you from throwing up. Pain medicine may upset your stomach and make you feel like vomiting. To help prevent this, pain medicine and anti- nausea medicine are often given at the same time. ?? Use ice chips. You may suck or chew small pieces of ice to if you feel like you need to cough. ?? Use lip balm. Put lip balm on your lips to keep them moist, and help prevent them from chapping. CONTACT A CAREGIVER IF: ?? You have a fever. ?? You have a cough or headache. ?? You have an upset stomach or feel like throwing up. ?? You have questions or concerns about your condition, medicine, or care. SEEK CARE IMMEDIATELY IF: ?? You have sudden trouble breathing. ?? You have a very bad headache. Copyright ?? 2012. [employer]. All rights reserved. Information is for End User's use only andmay not be sold, redistributed or otherwise used for commercial purposes. The above information is an aids social worker only. It is not intended as medical advice for individual conditions or treatments. Talk to your doctor, nurse or pharmacist before following any medical regimen to see if it is safe and effective for you. documented in this encounter Medications at Time of Discharge Medication Sig Dispensed Refills Start Date End Date B Complex-Folic Acid (B COMPLEX-VITAMIN B12) TABS Take 1 tablet by mouth once daily. 07/25/2014 flecainide (TAMBOCOR) 50 MG tablet TAKE 1 TABLET BY MOUTH TWICE DAILY 180 Tab 2 06/22/2014 03/27/2015 glucosamine-chondroitin (GLUCOSAMINE CHONDR COMPLEX) 500-400 MG capsule Take 1 capsule by mouth once daily. 07/25/2014 MAGNESIUM PO Take 1 tablet by mouth once daily. Patient is unsure of dosage. 07/25/2014 documented as of this encounter Progress Notes * Sanam Arias RN - 07/19/2014 2:42 PM CDT Up getting dressed without difficulty, no distress noted, all d/c instructions reviewed, IV d/c. at bedside informed of all instructions v/u. * Shannon Cordon MD - 07/19/2014 11:42 AM CDT Post-Procedure Note 07/19/2014 Serg Hampton Jax 1960 [id number] 53 y.o.male Physician Name: Shannon Cordon MD Director Of Medical Staff Services: none Pre-Procedural Diagnosis: Atrial flutter with 2:1 block Procedure Performed: EP study Post-Procedural Diagnosis: Atrial tachycardia most likely. Atrial fibrillation induced several times during the study. No atrial tachycardia induced. The atrial flutter line done last year was still intact so no ablation was done today. Description of Procedure: As above Findings: As above Complications: none EBL: minimal Tissue removed/specimens: No specimen PLAN Bedrest for 3 hr Discontinue NPO order Pain control May be discharged home in 4 hrs Follow up in clinic in 2-4 weeks Start Xarelto 20 mg daily for 1 month Shannon Cordon M.D. Cardiac Botany Laboratory Assistant [facility] [place] [phone] (office) [phone] (pager) 07/19/2014 11:42 AM documented in this encounter H&P Notes * Justino Jama MD - 07/19/2014 8:17 AM CDT History and Physical and Pre-Sedation Assessment Patient's Primary Care Physician: Ten Umanzor Name: Serg Camara Age: 53 y.o. Race: white Sex: male Chief Complaint/History of Present Illness PAF +palpitations No CP, orthopnea, PND, syncope No f/c/n/v/d FHX/SHX nc to illness Prescriptions prior to admission Medication Sig Dispense [...] once daily. Patient is unsure of dosage. Allergies Allergen Reactions ??? Naproxen GI Discomfort Anesthesia History no known family history of problems with anesthesia Review of Systems A comprehensive review of systems was negative except as described in HPI. Exam Vitals: 07/19/14 0726 BP: 113/85 Pulse: 68 Temp: 97.8 ??F Resp: 20 Weight: 81.647 kg (180 lb) SpO2: 98% General appearance: alert, well appearing, and in no distress. CVS exam: normal rate, regular rhythm, normal S1, S2, . Chest: clear to auscultation. Abdominal exam: soft Exam of extremities:no edema Neurological exam reveals alert, oriented, normal speech, no focal findings or movement disorder noted. SHEENT exam - supple, no significant adenopathy. No lesion, rashes, bruits, mucous membranes moist PERRLA, warm and dry Psychiatric, normal affect Musculoskeletal, good tone Review of Systems Constitutional: Negative for fatigue,weight loss, malaise. Eyes: Negative for visual blurring, diplopia. Ears, nose, mouth, and throat: Negative for hearing loss, tinnitus, vertigo, sinus congestion. Respiratory: Negative for cough. Cardiovascular: + palpitations,. Gastrointestinal: Negative for poor appetite. Skin: Negative for rash, bruising, varicose veins. Hematologic/lymphatic: Negative for weight loss, petechia, bleeding. Musculoskeletal:djd Neurological: Negative for headaches, gait problems, speech impairment, memory problem. Behavioral/Psych: Negative for depressed mood, anxiety, delusions. Endocrine: Negative for polyphagia, polydipsia, hair loss, thyroid swelling. All other systems reviewed and are negative. The review of systems is unremarkable except as mentioned above. PRE-SEDATION PHYSICIAN ASSESSMENT Date: 07/19/2014 Time: 8:17 AM Serg Camara is a 53 y.o. male Pre-procedure diagnosis: A-Flutter Planned Procedure: DARYL Medications, vital signs and labs results reviewed prior to procedure: Yes Allergies Allergen Reactions ??? Naproxen GI Discomfort SEDATION PLAN: moderate ASA Physical Status Classification: 3 (A patient with severe systemic disease) Mallampati Airway Classifications II (soft palate, uvula, fauces visible) Other indicators of a difficult intubation include: Small mouth opening Patient airway and condition has been evaluated immediately prior to sedation and/or analgesia: Yes Assessment and Plan DARYL, with the perforation risk explained * Shannon Cordon MD - 07/19/2014 7:50 AM CDT ELECTROPHYSIOLOGY H AND P 07/19/2014 Serg Camara 1960 53 y.o. male [id number] PCP- Ten Umanzor REASON FOR ADMISSION EP study and ablation HISTORY OF PRESENT ILLNESS Patient with a history of atrial flutter who has had what appears to be a recurrence of his arrhythmia. EKG appears atypical now which may be due to the prior ablation or may be a different arrhythmia. PAST MEDICAL AND SURGICAL HISTORY: Past Medical History Diagnosis Date ??? Atrial flutter 12/30/2013 ??? S/P ablation of atrial flutter 01/11/14 [place]; Successful and uncomplicated ablation of typical atrial [...] once daily. Patient is unsure of dosage. ALLERGIES Allergies Allergen Reactions ??? Naproxen GI [...] except as stated above/ HPI EXAMINATION BP 113/85 mmHg Pulse 68 Temp(Src) 97.8 ??F Resp 20 Wt 81.647 kg (180 lb) BMI 27.38 kg/m2 Not in any respiratory or painful distress, not pale, anicteric, afebrile, acyanosed, well hydrated, no leg edema. CARDIOVASCULAR - normal pulse , no JVD, S1 S2, no murmur, no leg edema EYES - nml Pupils, nml eyelids, nml conjuctiva ENT -Well hydrated moist mucous membrane of the oropharynx without any erythema or exudate. no lip lesions NECK -No masses, no JVD, No Bruit, no thyromegaly LUNGS - Unlabored breathing, Clear to auscultation bilaterally, no wheezes/crackles/rhonchi. Good air movement. ABDOMEN - Not tender, normal bowel sounds and no bruits, no hepatosplenomegaly SKIN -No rash in visible areas, skin warm and dry PSYCHIATRY -Alert and oriented to person, place, and time, normal affect NEUROLOGY - No gross neurological deficit. nml sensation, nml cranial nerves MUSCULOSKELETAL - , no finger clubbing, nml gait LABS: Recent Labs Component Name 07/12/14 [...] results for input(s): MAGMGDL in the last 85626 hours. Recent Labs Component Name 10/18/13 0841 TSH 1.79 No results for input(s): BNP in the last 51544 hours. Recent Labs Component Name 10/07/13 0406 10/06/13 1723 10/06/13 0923 TROPONIN <0.015 <0.015 <0.015 Recent Labs Component Name 01/04/14 1734 INR 1.2 No results for input(s): CKMBNGML in the last 78237 hours. Data reviewed ASSESSMENT Typical flutter s/p ablation Atypical flutter (new) PLAN DARYL EP study and ablation It was a pleasure attending to Serg Camara today. Shannon Cordon M.D. Cardiac Botany Laboratory Assistant [facility] [phone] (office) [phone] (pager) documented in this encounter Procedure Notes * Shannon Cordon MD - 07/21/2014 9:52 PM CDTAssociated Order(s): EP LAB CONSULT Procedure(s): DC ELECTROPHYSIOLOGY EVALUATION; DC STIMULATION,PACING HEART; DC ELECTROPHYSIOLOGY EVALUATION Electrophysiology Procedure Report 07/19/2014 Patient Information Serg Camara [id number] 1960 53 y.o.male Referring Physician: Dr Magen Cates PCP : Dr. Ten Umanzor Botany Laboratory Assistant: Shannon Cordon MD Indication for Study: SVT Palpitations 53 [...] repeat EP study. Local Anesthesia: Medication:Lidocaine 1% Total Dose: 40 ml Catheters: Type: Insertion IntraCardiac Sheath Duodecapolar Right HRA 8F short Halo Femoral 7F Vein Woven Flexi Left HBE 6F short 6F Femoral Vein Bard Decapolar Left Coronary sinus 7F short 7F Femoral Vein Smart Touch Right RV 8F 3.5mm F/J Femoral 8F Vein Procedure Description Following pre-procedural re-evaluation of [...] were obtained and a comprehensive EP study was performed including assessment of sinus node, AV node function as well as determination of atrial and ventricular effective refractory Periods. Measurements Pre-Procedure ECG Rhythm: NSR QRS Morphology: normal Baseline Intervals CL: 988 msec AA: 988 msec DC: 162 msec AH: 65 msec QRS: 82 msec HV: 49 msec QT: 380 msec R-R: 988 msec Pacing from the RV apex at baseline revealed 1:1 VA conduction which was concentric and decremental.VA wenckebach cycle length was 380 ms. VA ERP was 320 at a PCL of 600 and VERP was 240 at a PCL of 600 HRA pacing revealed 1:1 conduction without any evidence of pre-excitation down to 360 ms. Anterograde AV wenckebach was at 360 ms Dual AV node physiology was absent AVN ERP was <420ms at PCL of 500 ms. Patient went into AF ARRHYTHMIA INDUCTION Arrhythmia induction was attempted via decremental pacing and programmed extra- stimuli on and off Isoproterenol. No SVT was induced. No VT was induced. The only consistently induced arrhythmia was atrial fibrillation. Of note, there were periods of atrial fibrillation and appeared transiently well-organized resulted in almost a regular rhythm. DRUG INFUSION Isoproterenol was infused at a rate of 2 Mcg/min (max 5mcg/min). A repeat comprehensive EP study was done after an increase of > 15% in HR. AF continued to be the only arrhythmia induced.Patient had To be cardioverted twice. The other times he reverted spontaneously to sinus rhythm. At the end of the procedure catheters and sheaths were removed and hemostasis was secured by manualpressure. There was no complication and the patient was transferred to the recovery unit in stable condition. RADIOFREQUENCY ABLATION No ablation was done. Total ablation time; 0secs Fluoro Time: 9 min Blood loss: minimal SUMMARY NOTES DIAGNOSIS 1) Inducible atrial fibrillation. No other arrhythmia induced 2.) Bidirectional carvotricuspid isthmus conduction block (maintained from last ablation) 3) Normal sinus node function 4) Normal AV node function 5) No inducible SVT 6) No evidence of accessory pathways PROCEDURES DONE 1) Comprehensive EP study (02478) 2) Drug infusion (isoproterenol) with programmed stimulation (50272) 3) Recording and pacing from the coronary sinus (54580) ABLATION No ablation required for the CTI. Block was maintained from previous ablation. PLAN Bedrest for 3 hr Discontinue NPO order Pain control May be discharged home in 4 hrs Follow up in clinic in 1 week Shannon Cordon M.D. Cardiac Botany Laboratory Assistant [facility] [place] [phone] (office) [phone] (pager) 07/21/2014 9:53 PM documented in this encounter Plan of Treatment Upcoming Encounters Date Type Department Care Team (Late st Contact Info) Description 03/22/2024 9:00 AM [employer] Office Visit [facility] - Op[facility]mology [address] [facility] [facility], [place] [phone] Ernesto Hawkins MD [address] [place] [phone] documented as of this encounter Procedures Procedure Name Priority Date/Time Associated Diagnosis Comments EP LAB CONSULT Routine 07/21/2014 10:48 PM CDT CARDIAC EKG ORDER 07/21/2014 5:3 1 AM CDT CARDIAC PROCEDURE ORDER 07/22/19 5:31 AM CDT ECHOCARDIOGRAM TRANSESOPHAGEAL Routine 07/19/2014 8:01 AM CDT Typical atrial flutter (HCC) documented in this encounter Results * EP LAB CONSULT (07/21/2014 10:48 PM CDT) Narrative [facility] - 07/21/2014 10:48 PM CDT Shannon Cordon MD ? 07/21/2014 10:48 PM ?Electrophysiology ??Procedure Report ? 07/19/2014 Patient Information Serg Camara [id number] 1960 53 y.o.male Referring Physician: Dr Magen Cates PCP : Dr. Ten Umanzor Botany Laboratory Assistant: Shannon Cordon MD Indication for Study: SVT Palpitations 53 [...] ?? msec ?AA: ?? 988 ?? msec DC: ?162 ??msec ?AH: ?? 65 ??msec QRS: [...] pathways PROCEDURES DONE 1) Comprehensive EP study (07101) 2) Drug infusion (isoproterenol) with programmed stimulation (82876) 3) Recording and pacing from the coronary sinus (74726) ABLATION No ablation required for the CTI. Block was maintained from previous ablation. PLAN Bedrest for 3 hr Discontinue NPO order Pain control May be discharged home in 4 hrs Follow up in clinic in 1 week Shannon Cordon M.D. Cardiac Botany Laboratory Assistant [facility] [place] [phone] (office) [phone] (pager) 07/21/2014 9:53 PM Shannon Cordon MD ECHO ORDERABLES [facility] * CARDIAC EKG ORDER (07/21/2014 5:31 AM CDT) Narrative 07/21/2014 5:31 AM CDT Ordered by an unspecified provider. Scanned Document CARDIAC SERVICES ORD ERABLES * CARDIAC PROCEDURE ORDER (07/21/2014 5:31 AM CDT) Narrative 07/21/2014 5:31 AM CDT Ordered by an unspecified provider. Scanned Document CARDIAC SERVICES ORD ERABLES * ECHO DARYL (07/19/2014 8:01 AM CDT) 07/19/2014 8:01 AM CDT Narrative [facility] - 07/19/2014 9:[place] [address] Transesophageal Echocardiogram 2D, Doppler, and Color Doppler Patient: SERG CAMARA MR number: [id number] Height: 67 in Weight: 180 lb BSA: 1.94 m?? Study date: 19-Jul-2014 : 1960 Age: 53 years Gender: Male Race: 2 Allergies: NAPROXEN Diagnoses: 427.32 - ATRIAL FLUTTER REFERRING PHYSICIAN: ??Justino Jama MD [employer]: ??Tatyana Oviedo RDCS READING NUMERICAL CONTROL PROGRAMMER: ??Justino Jama MD Summary: - ??Clinical question: [...] ??Contrast injection was performed. There was no lhjxv-sa-riig shunt, with provocative maneuvers to increase right [...] Contrast injection was performed. There was no lzqvy-wm-vvyv shunt, with provocative maneuvers to increase right [...] 09:15:33 Procedure Note Justino Jama MD - 05/26/2015 [place] [address] Transesophageal Echocardiogram 2D, Doppler, and Color Doppler Patient: SERG CAMARA MR number: [id number] Height: 67 in Weight: 180 lb BSA: 1.94 m?? Study date: 19-Jul-2014 : 1960 Age: 53 years Gender: Male Race: 2 Allergies: NAPROXEN Diagnoses: 427.32 - ATRIAL FLUTTER REFERRING PHYSICIAN: Justino Jama MD [employer]: Tatyana Oviedo RDCS READING NUMERICAL CONTROL PROGRAMMER: Justino Jama MD Summary: - Clinical question: [...] Contrast injection was performed. There was no hccwu-bz-abus shunt, with provocative maneuvers to increase right [...] Contrast injection was performed. There was no kmnjx-fm-wgkv shunt, with provocative maneuvers to increase right [...] Justino Jama MD Signed 19-Jul-2014 09:15:33 Shannon Cordon MD ECHO ORDERABLES [facility] documented in this encounter Visit Diagnoses Diagnosis Typical atrial flutter (HCC) Atrial flutter documented in this encounter Administered Medications Inactive Administered Medications - up to 3 most recent administrations Medication Order MAR Action Action Date Dose Rate Site 0.9% NaCl infusion at 75 mL/hr, Intravenous, CONTINUOUS, Starting on Fri07/19/14 at 0815, Until Fri07/20/14 at 0854, Pre-op / Post-op $ New Bag/Syringe 07/19/2014 7:35 AM CDT 75 mL/hr lidocaine (XYLOCAINE) 2 % viscous solution 10 mL 10 mL, Mouth/Throat, ONCE, 1 dose, On Fri07/19/14 at 0730, Maximum 8 doses per day. $ Given 07/19/2014 7:58 AM CDT 10 mL documented in this encounter Active and Recently Administered Medications Times are shown in CDT. Scheduled Medication Order 07/17/2014 07/18/2014 07/19/2014 lidocaine (XYLOCAINE) 2 % viscous solution 10 mL (COMPLETED) 10 mL, Mouth/Throat, ONCE, 1 dose, On Fri07/19/14 at 0730, Maximum 8 doses per day. 0758 ($ Given - Prov ider: Khadijah Dumont RN) Continuous Medication Order 07/17/2014 07/18/2014 07/19/2014 0.9% NaCl infusion (CANCELED) at 75 mL/hr, Intravenous, CONTINUOUS, Starting on Fri07/19/14 at 0815, Until Fri07/20/14 at 0854, Pre-op / Post-op 0735 ($ New Bag/Syri nge - Provider: Sanam Arias RN) documented in this encounter Care Teams Electric Fork Operator Relationship Specialty Start Date End Date Ten Umanzor provider retired [id number] PCP - General 04/10/11 09/06/14 Stephanie Prasad RN [address] [facility] [address] [place], [place] [id number] Museum Librarian 10/06/13 Lan Bragg DO [address] [place] [address] Orthopedic Surgery 06/02/14 documented as of this encounter
--- OUTSIDE RECORDS SUMMARY | 2024-03-07 21:57 | XMS_ITS | Encounter Summary ---
Author Organization [facility] Address [address] [facility] [place] [address] Care Team Providers Care Marketing Technology Specialist Name Role Phone Ten Umanzor Primary Care Provider Stephanie Patterson RN Unavailable Lan Bragg DO Unavailable Reason for Referral * Procedure - Closed Specialty Diagnoses / Procedures Referred By Rosa espinosa Referred To Contact Cardiology Diagnoses Atrial flutter (HCC) Irregular heart beat Procedures EKG 12-LEAD Shannon Cordon MD [address] [place] [address] Referral ID Status Reason Start Date Expiration Date Visits Re quested Visits Authorized [id number] Closed 06/21/2014 12/18/2014 1 1 Reason for Visit * Reason Onset Date Comments Question 06/21/2014 Encounter Details Date Type Department Care Team (Late st Contact Info) Description 06/21/2014 Telephone [facility] [address] [place] [address] Shannon Cordon MD [address] [place], [place] [id number] Question Social History Tobacco Use Types Packs/Day [...] * Telephone Encounter - Isidra Dorsey - 06/21/2014 11:47 AM CDT Pt scheduled for EKG today @ 1:00 [facility]. * Telephone Encounter - Shanthi Dailey MA - 06/21/2014 9:13 AM CDT Patient calling stating he had seen Dr Cordon in the hosp. Last week and mentioned he has had a couple times and Dr Cordon suggested to stop by the office and get an EKG when he is having symptoms. He is having symptoms and contacted the [place] office . Please contact pt at his cell # [phone] * Telephone Encounter - Leoncio Gomez MA - 06/21/2014 8:13 AM CDT Patient called and states that he was informed that the next time his symptoms of a irregular heartrate occurs patient states that he was informed by Dr. Cordon that he can come in the office for a ekg only. Please verify with the doctor. documented in this encounter Plan of Treatment Upcoming Encounters Date Type Department Care Team (Late st Contact Info) Description 03/22/2024 9:00 AM POURER CRANE LADLE Office Visit [facility] - Ophthalmology [address] [facility], [place] [phone] Ernesto Hawkins MD [address] [place] [phone] documented as of this encounter Procedures Procedure Name Priority Date/Time Associated Diagnosis Comments EKG 12-LEAD Routine 06/19/2014 Atrial flutter (HCC) Irregular heart beat documented in this encounter Results * EKG 12-LEAD (06/19/2014) Shannon Cordon MD ECG ORDERABLES SS RESULT SCAN documented in this encounter Visit Diagnoses Diagnosis Atrial flutter (HCC)- Primary Atrial flutter Irregular heart beat Cardiac dysrhythmia, unspecified documented in this encounter Care Teams Marketing Technology Specialist Relationship Specialty Start Date End Date Ten Umanzor provider retired [id number] PCP - General 04/10/11 09/06/14 Stephanie Prasad RN [address] [facility] [address] [facility] [address] Flange Machine Operator 10/06/13 Lan Bragg DO [address] [facility] [address] [place] [address] Orthopedic Surgery 06/02/14 documented as of this encounter
--- OUTSIDE RECORDS SUMMARY | 2024-03-07 21:57 | XMS_ITS | Encounter Summary ---
Author Organization [facility] Address [address] [place] [address] Care Team Providers Care Ranger Aide Name Role Phone Ten Umanzor Primary Care Provider Stephanie Patterson RN Unavailable [phone] Reason for Visit * Reason Comments Follow-up Encounter Details Date Type Department Care Team ([facility] Contact Info) Description 12/09/2013 2:30 PM CDT Office Visit [facility] [address] [place] [address] [place] [id number] [phone] Atrial flutter (HCC) (Primary Dx) Social History Tobacco Use [...] Sign Reading Time Taken Comments Blood Pressure 122/87 12/09/2013 2:45 PM CDT Pulse 66 12/09/2013 2:45 PM CDT Temperature - - Respiratory Rate - - Oxygen Saturation - - Inhaled Oxygen Concentration - - Weight 79.4 kg (175 lb) 12/09/2013 2:45 PM CDT Height 172.7 cm (5' 8 ) 12/09/2013 2:45 PM CDT Body Mass Index 26.61 12/09/2013 2:45 PM CDT documented in this encounter Functional [...] Progress Notes * Olvin Tyson MD - 12/09/2013 2:47 PM CDT [facility]anger Olvin Tyson MD, FACC REASON FOR VISIT: Pt states he has some discomfort In chest area PROBLEM LIST: There is no problem list on file for this patient. SUBJECTIVE: Kenji Negronchasitymirza 53 y.o. male is here for: Follow-up No CP No SOB No palptns/dizziness/loc ROS: Review of Systems - General ROS: negative Psychological ROS: negative Ophthalmic ROS: negative ENT ROS: negative Hematological and Lymphatic ROS: negative Endocrine ROS: negative Respiratory ROS: positive for - shortness of breath Cardiovascular ROS: positive for - irregular heartbeat Gastrointestinal ROS: no abdominal pain, change in [...] on file Social History Narrative FAMILY HISTORY: No family history on file. MEDICAL HISTORY: No past medical history on file. I have reviewed and agree with all of the above entries. SURGICAL HISTORY: Past Surgical History Procedure Laterality Date ??? Shoulder arthroscopy ??? Carpal tunnel surgery ??? Hernia repair, inguinal 04/11/11 HOME MEDICATIONS: Prior to Admission medications Medication Sig Start Date End Date Taking? Authorizing Provider rivaroxaban (XARELTO) 20 MG tablet Take 1 tablet by mouth once daily. 10/07/13 Yes Magen Cates MD diltiazem ER 24hr (TIAZAC) 180 MG capsule Take 1 capsule by mouth once daily. 10/07/13 Magen Cates MD B Complex-Folic Acid (B COMPLEX-VITAMIN B12) TABS Take 1 tablet by mouth once daily. Historical Provider, glucosamine-chondroitin (GLUCOSAMINE CHONDR COMPLEX) 500-400 MG capsule Take 1 capsule by mouth once daily. Historical Provider, MAGNESIUM PO Take 1 tablet by mouth once daily. Patient is unsure of dosage. Historical Provider, EXAMINATION: VITALS: Vitals: 12/09/13 1445 BP: 122/87 Pulse: 66 Weight: 79.379 kg (175 lb) Skin: Warm and dry. JV: No Carotid Bruit: No Chest: Breath sounds are mildly decreased Heart: normal rate and regular rhythm. 1-2/6 SM Abdomen: soft Extremities: negative LABS: Reviewed Recent Labs Component Name 10/07/13 0406 10/06/13 0923 01/12/13 1132 WBC 4.9 5.8 6.0 HGB 14.6 17.4 16.3 HCT 42.2 49.0 46.6 PLTCOUNT 230 296 267 Recent Labs Component Name 10/07/13 0406 10/06/13 1723 10/06/13 0923 TROPONIN <0.015 <0.015 <0.015 No results found for this basename: MYOGLOBIN, in the last 26747 hours Recent Labs Component Name 10/07/13 0406 10/06/13 0923 01/12/13 1132 SODIUM 140 139 142 POTASSIUM 3.8 4.2 4.1 BUN 14 15 16 CREATININE 0.72 0.91 0.83 Recent Labs Component Name 10/18/13 0841 CHOL 188 TRIG 115 HDL 44 LDLCALC 121 No results found for this basename: BNP, in the last 67445 hours No results found for this basename: INR, in the last 61754 hours Recent Labs Component Name 10/18/13 0841 TSH 1.79 CMP: Recent Labs Component Name 10/07/13 0406 10/06/13 0923 GLUCOSE 76 105 BUN 14 15 CREATININE 0.72 0.91 EGFR >60 >60 SODIUM 140 139 POTASSIUM 3.8 4.2 CHLORIDE 110* 108* CO2 24 24 CALCIUM 8.4* 9.1 AST -- 25 ALBUMIN -- 4.1 ALT -- 39 There is no problem list on file for this patient. IMPRESSIONS/PLAN/RECOMMENDATIONS: 1. Stopped Dilt d/t s/e 2. Sx of palpitations recurred 3. Had deffered RFA 4. Will reschedule Risk modification addressed with patient Kenji Camara has been advised to let me know if patient has recurrent chest pain,dyspnea,syncope or palpitations. Follow up : 4 Months Ten Umanzor, thank you for allowing us to participate in the care of this patient. Closing Remark: I have reviewed and agree with all of the above entries. documented in this encounter Plan of Treatment Upcoming Encounters Date Type Department Care Team (Late st Contact Info) Description 03/22/2024 9:00 AM PUBLIC SAFETY TEACHER Office Visit [facility] - Op[facility]mology [address] [place] [address] Ernesto Hawkins MD [address] [place] [phone] documented as of this encounter Visit Diagnoses Diagnosis Atrial flutter (HCC)- Primary Atrial flutter documented in this encounter Care Teams Ranger Aide Relationship Specialty Start Date End Date Ten Umanzor provider retired [id number] PCP - General 04/10/11 09/06/14 Stephanie Prasad, RN [address] [facility] [address] [place] [address] Aircraft Engineer 10/06/13 documented as of this encounter
--- OUTSIDE RECORDS SUMMARY | 2024-03-07 21:57 | XMS_ITS | Encounter Summary ---
Author Organization [facility] Address [address] [facility] [place] [address] Care Team Providers Care Dairy Farm Supervisor Name Role Phone Stephanie Prasad RN Unavailable [phone] Lan Bragg DO Unavailable Elias Mayorga MD Primary Care Provider [phone] Reason for Visit * Reason Comments Implantable Device Follow-Up Carelink Encounter Details Date Type Department Care Team (Latest Contact Info) Description 12/27/2014 12:45 PM CERTIFIED CODING SPECIALIST Procedure visit [facility] [address] [place] [id number] Typical atrial flutter (HCC) Social History Tobacco [...] Progress Notes * Shannon Cordon MD - 01/09/2015 10:32 AM CST ATTESTATION I have reviewed the device interrogation report. I agree with the documentation with no additions. Shannon Cordon M.D. Cardiac Urban Planner [facility] [place] [phone] (office) [phone] (pager) IFIED CODING SPECIALIST * Molly Lozoya - 12/27/2014 3:10 PM CST Patient's Linq recorder was interrogated via home monitor with [employer]. Interrogation was reviewed by Dr Jn Cordon MD . Without anomalies detected. IFIED CODING SPECIALIST documented in this encounter Plan of Treatment Upcoming Encounters Date Type Department Care Team (Late st Contact Info) Description 03/22/2024 9:00 AM CERTIFIED CODING SPECIALIST Office Visit [facility] - Ophthalmology [address] [place] [phone] Ernesto Hawkins MD [address] [place] [phone] documented as of this encounter Procedures Procedure Name Priority Date/Time Associated Diagnosis Comments ILR DEVICE INTERROGATION Routine 12/27/2014 Typical atrial flutter (HCC) documented in this encounter Results * ILR DEVICE INTERROGATION (12/27/2014) Shannon Cordon MD CARDIAC SERVICES ORDERABLES NONSSM RESULT SCAN documented in this encounter Visit Diagnoses Diagnosis Typical atrial flutter (HCC)- Primary Atrial flutter documented in this encounter Care Teams Dairy Farm Supervisor Relationship Specialty Start Date End Date Elias Mayorga MD [address] [facility] [address] [place] [address] PCP - General Internal Medicine 09/07/14 Stephanie Prasad, RN [address] [facility] [address] [place] [address] Casing Inspector 10/06/13 Lan Bragg DO [address] [place] [address] Orthopedic Surgery 06/02/14 documented as of this encounter
--- OUTSIDE RECORDS SUMMARY | 2024-03-07 21:57 | XMS_ITS | Encounter Summary ---
Author Organization [facility] Address [address] [place] [address] Care Team Providers Care Equipment Installation Professional Name Role Phone Ten Umanzor Primary Care Provider Stephanie Patterson RN Unavailable [phone] Reason for Visit * Reason Comments Event Monitor Encounter Details Date Type Department Care Team ([facility] st Contact Info) Description 01/28/2014 10:00 AM CAFE HELPER Procedure visit [facility] V[facility] Care [address] [place] [address] Palpitations Social History Tobacco Use Types Packs/Day [...] encounter Procedure Notes * Lizet Guy - 03/11/2014 4:25 PM CSTAssociated Order(s): CARDIAC EVENT MONITOR [facility] CARDIOLOGY MOBILE CARDIAC TELEMETRY MONITORING ? [...] between 56 to 114 beats per minute. Averageheart rate was 84 beats per minute. 2. [...] during a period of sinus tachycardia with 2PVCs noted. However, he had an identical episode of sinus tachycardia with 2 PVCs that he did not report so symptom correlation is unclear. The patient was monitored with a cardiac campus monitor for 29 days through [employer] Shannon Cordon MD 03/11/2014 4:26 PM HELPER documented in this encounter Plan of Treatment Upcoming Encounters Date Type Department Care Team (Late st Contact Info) Description 03/22/2024 9:00 AM CAFE HELPER Office Visit [facility] - Ophthalmology [address] [place] [phone] Ernesto Hawkins MD [address] [place] [phone] documented as of this encounter Procedures Procedure Name Priority Date/Time Associated Diagnosis Comments CARDIAC EVENT MONITOR Routine 03/17/2014 1:16 AM CAFE HELPER Palpitations documented in this encounter Visit Diagnoses Diagnosis Palpitations- Primary documented in this encounter Care Teams Equipment Installation Professional Relationship Specialty Start Date End Date SimonTen chavarria Manuel provider retired [id number] PCP - General 04/10/11 09/06/14 Stephanie Prasad, RN [address] [facility] [address] [place] [address] District Sales Representative 10/06/13 documented as of this encounter
--- OUTSIDE RECORDS SUMMARY | 2024-03-07 21:57 | XMS_ITS | Encounter Summary ---
Author Organization [facility] Address [address] [place] [address] Care Team Providers Care Rhythmic Gymnastics Coach Name Role Phone Ten Umanzor Primary Care Provider Stephanie Patterson RN Unavailable [phone] Reason for Visit * Auth/Cert - Closed Specialty Diagnoses / Procedures Referred By Contac t Referred To Contact Inpatient Care Diagnoses chest pain Procedures A-Flutter Ablation [facility] 3d Telemetry [address] [place] [address] Referral ID Status Reason Start Date Expiration Date Visits Re quested Visits Authorized [id number] Closed 01/12/2014 07/11/2014 1 Encounter Details Date Type Department Care Team (Latest Contact Info) Description 01/11/2014 6:54 AM FINISHED GOODS INSPECTOR - 01/11/2014 6:27 PM [facility] Hospital Encounter [facility] 3D TELEMETRY [address] [place] [address] Shnanon Cordon MD [address] [facility] [address] [place] [address] Cardiac Catheterization Discharge Disposition: Home or Self Care Social History Tobacco Use Types Packs/Day Years Used Date Smoking Tobacco: Never Tobacco Cessation:Counseling Given: No Alcohol Use Standard Drinks/Week Comments Yes 0.8 (1 standard drink = 0.6 oz p ure alcohol) Sex and Gender Information Value Date Recorded Sex Assigned at Not on file Gender Identity Not on file Sexual Orientation Not on file documented as of this encounter Last Filed Vital Signs Vital Sign Reading Time Taken Comments Blood Pressure 130/85 01/11/2014 3:56 PM FINISHED GOODS INSPECTOR Pulse 77 01/11/2014 3:56 PM FINISHED GOODS INSPECTOR Temperature 36.7 ??C (98.1 ??F) 01/11/2014 3:56 PM CS T Respiratory Rate 18 01/11/2014 3:56 PM FINISHED GOODS INSPECTOR Oxygen Saturation 100% 01/11/2014 3:56 PM FINISHED GOODS INSPECTOR Inhaled Oxygen Concentration - - Weight 78 kg (172 lb) 01/11/2014 7:31 AM FINISHED GOODS INSPECTOR Height 172.7 cm (5' 8 ) 01/11/2014 7:31 AM FINISHED GOODS INSPECTOR Body Mass Index 26.15 01/11/2014 7:31 AM FINISHED GOODS INSPECTOR documented in this encounter Functional Status [...] daily. 07/25/2014 flecainide (TAMBOCOR) 50 MG tablet Take 1 Tab by mouth 2 times daily. 60 Tab 3 01/11/2014 04/21/2014 glucosamine-chondroitin (GLUCOSAMINE CHONDR COMPLEX) 500-400 MG capsule Take 1 capsule by mouth once daily. 07/25/2014 MAGNESIUM PO Take 1 tablet by mouth once daily. Patient is unsure of dosage. 07/25/2014 rivaroxaban (XARELTO) 20 MG tablet Take 1 tablet by mouth once daily. 30 tablet 2 10/07/2013 01/17/2014 documented as of this encounter Progress Notes * Kerrie Blackwell RN - 01/11/2014 6:25 PM CST Discharge instructions given to patient and family at bedside; all questions answered and they verbalized understanding. Pt is anxious to go home with family. [facility] homewith family. SHED GOODS INSPECTOR * Luz Espinosa RN - 01/11/2014 7:39 AM CST Problem: Impaired Gas Exchange Goal: Resp rate/effort will be within specified limits Outcome: Ongoing Problem: Hemodynamic Status Goal: Patient has stable vital signs and fluid balance Outcome: Ongoing SHED GOODS INSPECTOR documented in this encounter H&P Notes * Shannon Cordon MD - 01/11/2014 8:51 AM CST ELECTROPHYSIOLOGY H AND P 01/11/2014 Kenji Hampton Jax 1960 53 y.o. male [id number] PCP- Ten Umanzor REASON FOR ADMISSION Patient is admitted today for EP study and ablation HISTORY OF PRESENT ILLNESS 53 yr old man admitted in atrial flutter Dec 2012 with recurrence in September 2013. He was trated with cardizem and xarelto but has been having recurrences of an irregular heart beat hence referral forablation. Today he is having multiple episodes of APCs which are bothersome. Given the above we revised the plan this morning to have the flutter ablation and then go after the APCs if possible. Of note he is in sinus rhythm and has been on uninterrupted xarelto for up to 4 weeks so no need for a DARYL Px and and agreeable. PAST MEDICAL AND SURGICAL HISTORY: Past Medical History Diagnosis Date ??? Atrial flutter 12/30/2013 Past Surgical History Procedure Laterality Date ??? Shoulder arthroscopy ??? Carpal tunnel surgery ??? Hernia repair, inguinal 04/11/11 MEDICATION: No current facility-administered medications on file [...] Reactions ??? Naproxen GI Discomfort FAMILY HISTORY No family history on file. SOCIAL HISTORY History Substance Use Topics ??? Smoking status: Never Smoker ??? Smokeless tobacco: Not on file ??? Alcohol Use: 0.5 oz/week 1 Cans of beer per week SYSTEMIC REVIEW 10 point review of systems was negative except as stated above/ HPI EXAMINATION BP 121/85 Pulse 71 Temp(Src) 97.5 ??F Wt 78.019 kg (172 lb) BMI 26.16 kg/m2 GENERAL Not in any respiratory or painful distress, not pale, anicteric, afebrile, acyanosed, well hydrated, no leg edema. CARDIOVASCULAR - intermittently irreg pulse , no JVD, S1 S2, no murmur, no leg edema EYES - nl Pupils, nl eyelids, nl conjuctiva ENT -Well hydrated moist mucous membrane [...] oriented to person, place, and time, nl affect NEUROLOGY - No gross neurological deficit. nl sensation, nl cranial nerves MUSCULOSKELETAL - , no finger clubbing EKGtoday 9:22 Sinus rhythm, frequent APCs in a bigeminal pattern, positive P waves in II, III and aVF, appears negative in V1. QTC Repeat EKG 01/11/14 9:24, NSR QTc 397 Normal stress test 2D ECHO EF normal ASSESSMENT Atrial flutter APCs PLAN Proceed with EPS and ablation of Atrial flutter and APCs It was a pleasure attending to Kenji Camara today. Shannon Cordon M.D. Cardiac Water Jet Operator [facility] [place] [phone] (pager) SHED GOODS INSPECTOR documented in this encounter Procedure Notes * Shannon Cordon MD - 01/12/2014 11:25 PM CSTAssociated Order(s): EP LAB CONSULT Procedure(s): TN COMPRE EP EVAL ABLTJ 3D MAPG TX SVT; TN ELECTROPHYSIOLOGY EVALUATION; TN STIMULATION,PACING HEART; TN ELECTROPHYSIOLOGY EVALUATION; TN INTRACARDIAC MAPPING 3-D Pre-Procedure Diagnose(s): Atrial flutter (HCC); APC (atrial premature contractions) Electrophysiology Procedure Report 01/11/2014 Patient Information Kenji Camara [id number] 1960 53 y.o.male Referring Physician: Dr Magen Cates PCP : Dr. Ten Umanzor Water Jet Operator: Shannon Cordon MD Indication for Study: Atrial Flutter Palpitations Irregular heart beat. 53 yr old man admitted in atrial flutter Dec 2012 with recurrence in September 2013. He was treated with cardizem and xarelto but has been having recurrences of an irregular heart beat hence referral for ablation. Today he is having multiple episodes of APCs which are bothersome. Given the above we revised the plan this morning to have the flutter ablation and then go after the APCs if possible. Of note he is in sinus rhythm and has been on uninterrupted xarelto for up to 4 weeks so no need for a DARYL. Px andwife agree with plan. Local Anesthesia: Medication:Lidocaine 1% Total Dose: 40 ml Catheters: Type: Insertion IntraCardiac Sheath Duodecapolar Left RV 8F short 7F Femoral Vein Woven Flexi Left HBE 6F short 6F Femoral Vein Bard Decapolar Right Coronary sinus 7F short 7F Femoral Vein Thermocool SF Right CTI/RV/RA 8.5F SRO 3.5mm Femoral D/FCurve Vein 8F Procedure Description Following pre-procedural re-evaluation of patient and diagnostic tests, a fasting state was confirmed, an informed consent was obtained and patient was brought to the EP lab. Moderate sedation was administered by the anesthesia staff. The groins were prepped and draped in the usual sterile manner. Using the modified Seldinger technique, vascular sheaths were placed in the right and left femoral veins as stated above. COMPREHENSIVE ELECTROPHYSIOLOGY STUDY Baseline values were obtained and a comprehensive EP study was performed including assessment of sinus node, AV node function as well as determination of atrial and ventricular effective refractory Periods. Measurements Pre-Procedure ECG Rhythm: Sinus rhythm with frequent APCs. QRS Morphology: normal Baseline Intervals CL: 907 msec AA: 907 msec TN: 143 msec AH: 58 msec QRS: 91 msec HV: 32 msec QT: 351 msec R-R: 907 msec HRA pacing revealed 1:1 conduction without any evidence of pre-excitation down to 300 ms. Anterograde AV wenckebach was at 300 ms Dual AV node physiology was absent Echo beats were absent AVN ERP was </= 240ms ms at PCL of 600 ms AERP was 240 ms at PCL of 600 ms Pacing from the ventricle at baseline revealed 1:1 VA conduction which was concentric and decremental. VA wenckebach cycle length was 385 ms. VA ERP was 320 at a PCL of 600 and VERP was 200 at a PCL of 600 ARRHYTHMIA INDUCTION Decremental pacing and programmed extra-stimuli from the HRA, CS and RV, were carried out without any arrhythmia induction. APCs Patient had APCs with varying morphology so decision was made NOT to go after them. RADIOFREQUENCY ABLATION OF ATRIAL FLUTTER A series of radiofrequency lesions were made from the tricuspid annulus to the inferior vena cava across the cavotricuspid isthmus. Power was at 30-40W. Bidirectional tricuspid isthmus block was demonstrated by pace mapping. After a few minutes of waiting post ablation, bidirectional conduction block was no longer maintained. 3D MAPPING Given the difficulty to maintain bidirectional kosta, decision was made to utilize 3D mapping. The ablation catheter was used to create a 3D electroanatomic map using CARTO soft and hardware. Geometryof the CTI and its adjacent structures were created. This was used to identify an area of leak along the ablation line. More ablation was carried out. After extensive of the CTI, we were still able to observe a sharp signal close to the middle of the line. Using pace mapping however, we were able demonstrated there was actually bidirectional block. At the end of the procedure catheters and sheaths were removed and hemostasis was secured by manualpressure. There was no complication and the patient was transferred to the recovery unit in stable condition. Total ablation time; 2380secs Fluoro Time: 35 min Blood loss: Minimal SUMMARY NOTES DIAGNOSIS 1) Ablation of typical flutter circuit. 2)Frequent APCs 3) Normal sinus node function 4) Normal AV node function 5) No dual AV maria e physiology. No echo beat 6)No inducible SVT 7) No evidence of accessory pathways PROCEDURES DONE 1) Ablation of cavotricuspid isthmus (73649) 2) Comprehensive EP study (88131) (bundled) 3) Recording and pacing from the coronary sinus (94205) 4) 3D mapping (60331) ABLATION Successful and uncomplicated ablation of typical atrial flutter circuit, PLAN Transfer to telemetry floor Discharge home Start flecainide 50 mg twice daily for the APCs Resume anticoagulation Follow up in EP clinic in 4 weeks with me. Shannon Cordon M.D. Cardiac Water Jet Operator [facility] [place] [phone] (office) [phone] (pager) SHED GOODS INSPECTOR documented in this encounter Plan of Treatment Upcoming Encounters Date Type Department Care Team (Late st Contact Info) Description 03/22/2024 9:00 AM FINISHED GOODS INSPECTOR Office Visit [facility] - Ophthalmology [address] [place] [phone] Ernesto Hawikns MD [address] [place] [phone] documented as of this encounter Procedures Procedure Name Priority Date/Time Associated Diagnosis Comments EP LAB CONSULT Routine 01/17/2014 7:14 PM FINISHED GOODS INSPECTOR CARDIAC RHYTHM STRIP ORDER 01/13/2014 12:23 AM FINISHED GOODS INSPECTOR CARDIAC PROCEDURE ORDER 01/13/2014 12:23 AM FINISHED GOODS INSPECTOR EKG 12-LEAD Routine 01/11/2014 9:22 AM FINISHED GOODS INSPECTOR Atrial flutter (HCC) documented in this encounter Results * EP LAB CONSULT (01/17/2014 7:14 PM FINISHED GOODS INSPECTOR) Narrative [facility] - 01/17/2014 7:14 PM FINISHED GOODS INSPECTOR Shannon Cordon MD ? 01/17/2014 ??7:14 PM ?Electrophysiology ??Procedure Report ? 01/11/2014 Patient Information Kenji Camara [id number] 1960 53 y.o.male Referring Physician: Dr Magen Cates PCP : Dr. Ten Umanzor Water Jet Operator: Shannon Cordon MD Indication for Study: Atrial Flutter Palpitations Irregular heart beat. 53 yr old man admitted in atrial flutter Dec 2012 with recurrence in September 2013. He was treated with cardizem and xarelto but has been having recurrences of an irregular heart beat hence referral for ablation. Today he is having multiple episodes of APCs which are bothersome. Given the above we revised the plan this morning to have the flutter ablation and then go after the APCs if possible. Of note he is in sinus rhythm and has been on uninterrupted xarelto for up to 4 weeks so no need for a DARYL. Px and agree with plan. Local Anesthesia: Medication:Lidocaine 1% ?Total Dose: 40 ??ml Catheters: Type: ?Insertion IntraCardiac ??Sheath Duodecapolar ??Left ??RV ?? 8F short 7F ?? Femoral ? Vein Woven Flexi ??Left ??HBE ?? 6F short 6F ?? Femoral ? Vein Bard Decapolar ??Right ??Coronary sinus ??7F short 7F ?Femoral ?? Vein Thermocool SF ??Right ??CTI/RV/RA ??8.5F SRO 3.5mm ?Femoral D/FCurve ??Vein 8F Procedure Description Following pre-procedural re-evaluation of patient and diagnostic tests, a fasting state was confirmed, an informed consent was obtained and patient was brought to the EP lab. Moderate sedation was administered by the anesthesia staff. ?? The groins were prepped and draped in the usual sterile manner. Using the modified Seldinger technique, vascular sheaths were placed in the right and left femoral veins as stated above. COMPREHENSIVE ELECTROPHYSIOLOGY STUDY Baseline values were obtained and a comprehensive EP study ??was performed ??including assessment ??of sinus node, ??AV node ?? function as well as determination ??of atrial ??and ventricular effective ??refractory ??Periods. Measurements Pre-Procedure ECG Rhythm: Sinus rhythm with frequent APCs. QRS Morphology: ??normal Baseline Intervals CL: ?907 ?? msec ?AA: ?? 907 ?? msec TN: ?143 ??msec ? AH: ?? 58 ??msec QRS: 91 ??msec ? HV: ?? 32 ??msec QT: ?351 ??msec ?R-R: ??907 ??msec HRA ??pacing revealed 1:1 conduction without any evidence of pre-excitation down to 300 ms. Anterograde AV wenckebach was at 300 ms Dual AV node physiology was absent Echo beats were absent AVN ERP was </= 240ms ms at PCL of 600 ms AERP was 240 ms at PCL of 600 ms Pacing from the ventricle at baseline revealed 1:1 VA conduction which was concentric and decremental. VA wenckebach cycle length was 385 ms. VA ERP was 320 at a PCL of 600 and VERP was 200 at a PCL of 600 ARRHYTHMIA INDUCTION Decremental pacing and programmed extra-stimuli ??from the HRA, CS and RV, were carried out without any arrhythmia induction. APCs Patient had APCs with varying morphology so decision was made NOT to go after them. RADIOFREQUENCY ABLATION OF ATRIAL FLUTTER A series of radiofrequency lesions were made from the tricuspid annulus to the inferior vena cava across the cavotricuspid isthmus. Power was at 30-40W. Bidirectional tricuspid isthmus block was demonstrated by pace mapping. After a few minutes of waiting post ablation, bidirectional conduction block was no longer maintained. 3D MAPPING Given the difficulty to maintain bidirectional kosta, decision was made to utilize 3D mapping. The ablation catheter was used to create a 3D electroanatomic map using [employer] soft and hardware. Geometry of the CTI and its adjacent structures were created. This was used to identify ??an area of leak along the ablation line. More ablation was carried out. After extensive of the CTI, we were still able to observe a sharp signal close to the middle of the line. Using pace mapping however, we were able demonstrated there was actually bidirectional block. At the end of the procedure catheters and sheaths were removed and hemostasis was secured by manual pressure. There was no complication and the patient was ??transferred to the recovery unit ??in stable condition. Total ablation time; 2380secs Fluoro Time: 35 min Blood loss: Minimal SUMMARY NOTES DIAGNOSIS 1) Ablation of typical flutter circuit. 2)Frequent APCs 3) Normal sinus node function 4) Normal AV node function 5) No dual AV maria e physiology. No echo beat 6)No inducible SVT 7) No evidence of accessory pathways PROCEDURES DONE 1) Ablation of cavotricuspid isthmus (52400) 2) Comprehensive EP study (96190) (bundled) 3) Recording and pacing from the coronary sinus (02300) 4) 3D mapping (21989) ABLATION Successful and uncomplicated ablation of typical atrial flutter circuit, PLAN Transfer to telemetry floor Discharge home Start flecainide 50 mg twice daily for the APCs Resume anticoagulation Follow up in EP clinic in 4 weeks with me. Shannon Cordon M.D. Cardiac Water Jet Operator [facility] [place] [phone] (office) [phone] (pager) Shannon Cordon MD ECHO ORDERABLES [facility] * CARDIAC RHYTHM STRIP ORDER (01/13/2014 12:23 AM FINISHED GOODS INSPECTOR) Narrative 01/13/2014 12:23 AM FINISHED GOODS INSPECTOR Ordered by an unspecified provider. Scanned Document CARDIAC SERVICES ORD ERABLES * CARDIAC PROCEDURE ORDER (01/13/2014 12:23 AM FINISHED GOODS INSPECTOR) Narrative 01/13/2014 12:23 AM FINISHED GOODS INSPECTOR Ordered by an unspecified provider. Scanned Document CARDIAC SERVICES ORD ERABLES * EKG 12-LEAD (01/11/2014 9:22 AM FINISHED GOODS INSPECTOR) Ventricular Rate 78 BPM [facility] Atrial Rate 37 BPM [facility] P-R Interval 130 ms [facility] QRS Duration ms 90 ms [facility] Q-T Interval ms 430 ms [facility] QTC Calculation (Bezet) 490 ms [facility] Calculated P [place] 42 degrees [facility] Calculated R [place] 40 degrees [facility] Calculated T [place] 28 degrees [facility] Interpretation EKG Marked sinus bradycardia with frequent Premature ventricular complexes Prolonged QT Abnormal ECG No previous ECGs available Confirmed by ANALISA LOZADA MD ([id number]) on 01/11/2014 8:12:47 PM [facility] 01/11/2014 9:22 AM FINISHED GOODS INSPECTOR 01/11/2014 8:12 PM FINISHED GOODS INSPECTOR Shannon Cordon MD ECG ORDERABLES [facility] M[facility] documented in this encounter Visit Diagnoses Diagnosis Atrial flutter (HCC) Atrial flutter documented in this encounter Administered Medications Inactive Administered Medications - up to 3 most recent administrations Medication Order MAR Action Action Date Dose Rate Site acetaminophen (TYLENOL) tablet 650 mg 650 mg, Oral, EVERY 4 HOURS PRN, Headache, Starting on Fri01/11/14 at 1342, Until Fri01/11/14 at 1928, Maximum allowable Acetaminophen amount = 4 Grams (4000 mg) / 24 hours. $ Given 01/11/2014 1:46 PM FINISHED GOODS INSPECTOR 650 mg hydrocodone-acetaminophen (NORCO) 5-325 MG tablet 1 Tab 1 tablet, Oral, EVERY 6 HOURS PRN, Moderate Pain, Starting on Fri01/11/14 at 1407, Until Fri01/11/14 at 1928, Maximum allowable Acetaminophen amount = 4 Grams (4000 mg) / 24 hours. $ Given 01/11/2014 3:10 PM FINISHED GOODS INSPECTOR 1 tablet morphine injection 1 mg 1 mg, Intravenous, EVERY 4 HOURS PRN, Severe Pain, Starting on Fri01/11/14 at 1407, Until Fri01/11/14 at 1928 $ Given 01/11/2014 4:47 PM FINISHED GOODS INSPECTOR 1 mg documented in this encounter Active and Recently Administered Medications Times are shown in FINISHED GOODS INSPECTOR. PRN Medication Order 01/09/2014 01/10/2014 01/11/2014 acetaminophen (TYLENOL) tablet 650 mg (CANCELED) 650 mg, Oral, EVERY 4 HOURS PRN, Headache, Starting on Fri01/11/14 at 1342, Until Fri01/11/14 at 1928, Maximum allowable Acetaminophen amount = 4 Grams (4000 mg) / 24 hours. 1346 ($ Given - Prov ider: Kerrie Blackwell RN) hydrocodone-acetaminophen (NORCO) 5-325 MG tablet 1 Tab (CANCELED) 1 tablet, Oral, EVERY 6 HOURS PRN, Moderate Pain, Starting on Fri01/11/14 at 1407, Until Fri01/11/14 at 1928, Maximum allowable Acetaminophen amount = 4 Grams (4000 mg) / 24 hours. 1510 ($ Given - Prov ider: Kerrie Blackwell RN) morphine injection 1 mg (CANCELED) 1 mg, Intravenous, EVERY 4 HOURS PRN, Severe Pain, Starting on Fri01/11/14 at 1407, Until Fri01/11/14 at 1928 1647 ($ Given - Prov ider: Kerrie Blackwell RN) documented in this encounter Care Teams Rhythmic Gymnastics Coach Relationship Specialty Start Date End Date Ten Umanzor provider retired [id number] PCP - General 04/10/11 09/06/14 Stephanie Prasad RN [phone] [facility] [address] [place] [address] Organ Recovery Coordinator 10/06/13 documented as of this encounter
--- OUTSIDE RECORDS SUMMARY | 2024-03-07 21:58 | XMS_ITS | Encounter Summary ---
Author Organization [facility] Address [address] [facility] [place] [address] Care Team Providers Care Grain Shipper Name Role Phone Ten Umanzor Primary Care Provider Stephanie Patterson RN Unavailable [phone] Reason for Visit * Reason Comments Arrhythmia reocurrent symptomat ic Atrial Flutter Encounter Details Date Type Department Care Team (Late st Contact Info) Description 11/08/2013 3:00 PM CDT Office Visit [facility] [address] [address] Shannon Cordon MD [address] [phone] Atrial flutter (HCC) (Primary Dx); Anticoagulated by anticoagulation treatment; History of cardioversion Social History Tobacco Use Types Packs/Day Years [...] Sign Reading Time Taken Comments Blood Pressure 122/84 11/08/2013 3:34 PM CDT Pulse 85 11/08/2013 3:34 PM CDT Temperature - - Respiratory Rate - - Oxygen Saturation - - Inhaled Oxygen Concentration - - Weight 80.3 kg (177 lb) 11/08/2013 3:34 PM CDT Height 172.7 cm (5' 8 ) 11/08/2013 3:34 PM CDT Body Mass Index 26.91 11/08/2013 3:34 PM CDT documented in this encounter Functional [...] Progress Notes * Shannon Cordon MD - 11/13/2013 10:48 PM CDT ELECTROPHYSIOLOGY OFFICE VISIT 11/08/2013 Kenji Camara 1960 52 [address].o. male [id number] Ten Umanzor REASON FOR VISIT/CHIEF COMPLAINT Follow up of atrial flutter, s/p cardioversion, Oral anticoagulation HPI Since discharge, patient has had episodes of an irregular heart beat on and off. Different from theoriginal palpitations. No syncope. No bleeding from anticoagulants No chest pain, no shortness of breath, no leg edema CURRENT MEDS Outpatient Prescriptions Marked as Taking for the 11/08/13 encounter (Office Visit) with Shannon Cordon MD Medication Sig ??? rivaroxaban (XARELTO) 20 MG tablet Take 1 tablet by mouth once daily. ??? diltiazem ER 24hr (TIAZAC) 180 MG capsule Take 1 capsule by mouth once daily. ??? glucosamine-chondroitin (GLUCOSAMINE CHONDR COMPLEX) 500-400 MG capsule Take 1 capsule by mouthonce daily. SYSTEMIC REVIEW 10 point review of systems was negative except as stated in the HPI Vitals: 11/08/13 1534 BP: 122/84 Pulse: 85 Weight: 80.287 kg (177 lb) GENERAL- No distress CVS - normal pulse , no JVD, S1 S2, no murmur, no leg edema LUNGS - Unlabored breathing, lungs clear , no wheezes/crackles/rhonchi. ASSESSMENT Atrial flutter Oral anticoagulation with Xarelto S/p cardioversion PLAN We discussed EP study and ablation extensively. I described the procedure in detail. I informed himof the risks which include groin hematoma, bleeding, perforation of the heart, and extremely low risk of complete heart block requiring PPM. I informed him of the risk of stroke and how this is reduced by continuing anticoagulation. Considering the pros and cons, he elected to have the procedure done. We will schedule same. Continue cardizem and Xarelto in the meantime. Following ablation, will perform surveillance for AF by holter/event monitor given the irregular heart beats he has had lately. Shannon Cordon M.D. Cardiac Milling Operator [facility] [place] [phone] (office) [phone] (pager) documented in this encounter Plan of Treatment Upcoming Encounters Date Type Department Care Team (Late st Contact Info) Description 03/22/2024 9:00 AM SOFTWARE TRAINER Office Visit [facility] - Ophthalmology [facility] [place] [phone] Ernesto Hawkins MD [facility] [place] [phone] documented as of this encounter Visit Diagnoses Diagnosis Atrial flutter (HCC)- Primary Atrial flutter Anticoagulated by anticoagulation treatment Encounter for long-term (current) use of anticoagulants History of cardioversion documented in this encounter Care Teams Grain Shipper Relationship Specialty Start Date End Date Ten Umanzor provider retired [id number] PCP - General 04/10/11 09/06/14 Stephanie Prasad, RN [address] [facility] [address] [place] [address] Clinical Physician Assistant 10/06/13 documented as of this encounter"
--- OUTSIDE RECORDS SUMMARY | 2024-03-07 21:58 | XMS_ITS | Encounter Summary ---
Author Organization [facility] Address [address] [facility] [place] [address] Care Team Providers Care Weave Defect Charting Clerk Name Role Phone Ten Umanzor Primary Care Provider Unavailabl e Encounter Details Date Type Department Care Team (Latest Contact Info) Description 08/02/2011 7:01 AM CDT - 08/02/2011 11:59 PM CDT Hospital Encounter [facility] Imaging Services - MRI [address] [place] [address] Ten Umanzor provider retired [id number] Radiology Diagnostic Discharge Disposition: Home or Self Care Social History Tobacco Use Types Packs/Day Years Used Date Smoking Tobacco: Never Alcohol Use Standard Drinks/Week Comments Yes 0.8 (1 standard drink = 0.6 oz p ure alcohol) Sex and Gender Information Value Date Recorded Sex Assigned at Not on file Gender Identity Not on file Sexual Orientation Not on file documented as of this encounter Medications at Time of Discharge Medication Sig Dispensed Refills Start Date End Date hydrocodone-acetaminophen (NORCO) 5-325 MG tablet Take 1 Tab by mouth every 4 hours as needed for Pain. 30 Tab 0 04/11/2011 11/08/2013 hydrocodone-acetaminophen (NORCO) 5-325 MG tablet Take 1 Tab by mouth every 4 hours as needed for Pain. 30 Tab 0 04/11/2011 10/07/2013 documented as of this encounter Plan of Treatment Upcoming Encounters Date Type Department Care Team (Late st Contact Info) Description 03/22/2024 9:00 AM MULE DEVELOPER Office Visit [facility] - Ophthalmology [address] [place] [phone] Ernesto Hawkins MD [address] [place] [address] documented as of this encounter Visit Diagnoses Diagnosis Pain in joint, lower leg documented in this encounter Care Teams Weave Defect Charting Clerk Relationship Specialty Start Date End Date Ten Umanzor provider retired [id number] PCP - General 04/10/11 09/06/14 documented as of this encounter
--- OUTSIDE RECORDS SUMMARY | 2024-03-07 21:58 | XMS_ITS | Encounter Summary ---
Author Organization [facility] Address [address] [facility] [place] [address] Care Team Providers Care Work Checker Name Role Phone Ten Umanzor Primary Care Provider Keila e Encounter Details Date Type Department Care Team (Latest Contact Info) Description 04/10/2011 10:38 AM COMMUNITY HEALTH ADVOCATE - 04/10/2011 11:59 PM COMMUNITY HEALTH ADVOCATE Hospital Encounter [facility] [address] [place] [address] [address] [place] [address] Isaac Garcia DO RETIRED Surgery General Discharge Disposition: Home or Self Care Social History Tobacco Use Types Packs/Day Years Used Date Smoking Tobacco: Never Assessed Sex and Gender Information Value Date Recorded Sex Assigned at Not on file Gender Identity Not on file Sexual Orientation Not on file documented as of this encounter Procedure Notes * Document, Scanned - 04/11/2011 10:57 AM CSTAssociated Order(s): CARDIAC EKG ORDER [facility] documented in this encounter Miscellaneous Notes * Miscellaneous Scans - Document, Scanned - 04/14/2011 3:32 PM CST [facility] documented in this encounter Plan of Treatment Upcoming Encounters Date Type Department Care Team (Late st Contact Info) Description 03/22/2024 9:00 AM COMMUNITY HEALTH ADVOCATE [facility] [address] [place] [phone] Ernesto Hawkins MD [facility] [place] [address] Scheduled Orders Name Type Priority Associated Diagnoses Orde r Schedule EKG 12-LEAD ECG Routine Preoperative examination, unspecified ONCE for 1 Occurrences starting 04/10/2011 until 04/10/2011 documented as of this encounter Procedures Procedure Name Priority Date/Time Associated Diagnosis Comments CARDIAC EKG ORDER 04/11/2011 10: 57 AM [facility]ALTH ADVOCATE documented in this encounter Results * CARDIAC EKG ORDER (04/11/2011 10:57 AM COMM[facility]ITY HEALTH ADVOCATE) Narrative Transcriptions Document, Scanned - 04/11/2011 10:57 AM CST Scanned Document CARDIAC SERVICES ORD ERABLES documented in this encounter Visit Diagnoses Diagnosis Preoperative examination, unspecified documented in this encounter Care Teams Work Checker Relationship Specialty Start Date End Date Ten Umanzor provider retired [id number] PCP - General 04/10/11 09/06/14 documented as of this encounter
--- OUTSIDE RECORDS SUMMARY | 2024-03-07 21:58 | XMS_ITS | Encounter Summary ---
Author Organization [facility] Address [address] [facility] [place] [address] Care Team Providers Care School Psychological Examiner Name Role Phone Ten Umanzor Primary Care Provider Stephanie Patterson RN Unavailable [phone] Encounter Details Date Type Department Care Team (Latest Contact Info) Description 10/18/2013 8:34 AM CDT - 10/18/2013 11:59 PM CDT Hospital Encounter [facility] - Laboratory [address] [place] [address] [place] [address] [phone] Discharge Disposition: Home or Self Care Social [...] 1 capsule by mouth once daily. 07/25/2014 hydrocodone-acetaminoph en (NORCO) 5-325 MG tablet Take 1 Tab by mouth every 4 hours as needed for Pain. 30 Tab 0 04/11/2011 11/08/2013 MAGNESIUM PO Take 1 tablet by mouth once daily. Patient is unsure of dosage. 07/25/2014 rivaroxaban (XARELTO) 20 MG tablet Take 1 tablet by mouth once daily. 30 tablet 2 10/07/2013 01/17/2014 documented as of this encounter Progress Notes * Elva Bolden - 10/18/2013 3:55 PM CDTQuick Note: Reviewed labs with Dr. Tyson. Continue current regimen. documented in this encounter Plan of Treatment Upcoming Encounters Date Type Department Care Team (Late st Contact Info) Description 03/22/2024 9:00 AM CLERICAL WAREHOUSEMAN Office Visit [facility] - Ophthalmology [address] [place] [phone] Ernesto Hawkins MD [address] [place] [phone] documented as of this encounter Procedures Procedure Name Priority Date/Time Associated Diagnosis Comments TSH Routine 10/18/2013 8:41 AM CDT Atrial flutter (HCC) LIPID PROFILE Routine 10/18/2013 8:41 AM CDT Atrial flutter (HCC) documented in this encounter Results * LIPID PROFILE (10/18/2013 8:41 AM CDT) Cholesterol 188 <200 mg/dL 10/18/2013 9:14 AM CDT [facility] Triglycerides 115 <150 mg/dL 10/18/2013 9:14 AM CDT [facility] HDL Cholesterol 44 >40 mg/dL 10/18/2013 9:14 AM CDT [facility] LDL Calculated 121 <130 mg/dL 10/18/2013 9:14 AM CDT [facility] VLDL Calculated 23 <=30 mg/dL 10/18/2013 9:14 AM CDT [facility] Chol HDL Ratio 4.3 <4.5 10/18/2013 9:14 AM CDT [facility] Blood BLOOD SPECIMEN / Unknown Lab Venipuncture / Unknown 10/18/2013 8:41 AM CDT 10/18/2013 8:48 AM CDT Olvin Tyson MD LAB - CHEMISTRY JON JASMINE Performing Organization Address City/[facility] Co de Phone Number [facility] [address] [place] [address] * TSH (10/18/2013 8:41 AM CDT) TSH 1.79 0.358 - 3.740 uIU/mL 10/18/2013 9:19 AM CDT [facility] Blood BLOOD SPECIMEN / Unknown Lab Venipuncture / Unknown 10/18/2013 8:41 AM CDT 10/18/2013 8:48 AM CDT Olvin Tyson MD LAB - CHEMISTRY JON JASMINE Performing Organization Address City/[facility] Co de Phone Number [facility] [address] [place] [address] documented in this encounter Visit Diagnoses Diagnosis Atrial flutter (HCC)- Primary Atrial flutter documented in this encounter Care Teams School Psychological Examiner Relationship Specialty Start Date End Date Ten Umanzor provider retired [id number] PCP - General 04/10/11 09/06/14 Stephanie Prasad RN [address] [facility] [address] [place] [address] Ingot Stripper 10/06/13 documented as of this encounter
--- OUTSIDE RECORDS SUMMARY | 2024-03-07 21:58 | XMS_ITS | Encounter Summary ---
Author Organization [facility] Address [address] [facility] [place] [address] Care Team Providers Care Voltage Tester Name Role Phone Ten Umanzor Primary Care Provider Stephanie Patterson RN Unavailable Reason for Referral * Cardiac - Closed Specialty Diagnoses / Procedures Referred By Contac t Referred To Contact Cardiology Diagnoses Atrial flutter (HCC) Procedures [place] [address] [place] [phone] Referral ID Status Reason Start Date Expiration Date Visits Re quested Visits Authorized [id number] Closed 10/15/2013 04/13/2014 1 1 Encounter Details Date Type Department Care Team (Late st Contact Info) Description 10/15/2013 Orders Only [facility] [address] [place] [address], [address] [place] [address] [place] [address] [place] [phone] Atrial flutter (HCC) Social History Tobacco Use [...] No 10/06/2013 documented as of this encounter Plan of Treatment Upcoming Encounters Date Type Department Care Team (Late st Contact Info) Description 03/22/2024 9:00 AM RECEIVING LEAD [facility] [address] [place] [address] Ernesto Hawkins MD [address] [place] [phone] Scheduled Orders Name Type Priority Associated Diagnoses Orde r Schedule LIPID PROFILE Lab Routine Atrial flutter (HCC) Ordered: 10/15/2013 TSH Lab Routine Atrial flutter (HCC) Ordered: 10/15/2013 documented as of this encounter Results * ECHOCARDIOGRAM STRESS (10/19/2013 3:12 PM CDT) 10/19/2013 3:12 PM CDT Narrative [facility] - 10/21/2013 8:52 AM CDT [facility] [place] [address] Exercise Stress Echocardiography Name: SERG CAMARA MR #: [id number] Study date: 19-Oct-2013 : 1960 Age: 52 years Gender: Male Height: 68 in Weight: 170 lb BSA: 1.91 m?? Allergies: NAPROXEN Diagnosis: 427.32 - ATRIAL FLUTTER Reading Physician: ??Olvin Tyson MD Referring Physician: ??Ten Umanzor, DO FOLEY ARTIST: ??[facility] Cardiology Group: ??[facility] Referring Physician: ??Jn Cordon MD HISTORY: Atrial flutter REST ECG: Normal [...] Procedure Note Olvin Tyson MD - 10/21/2013 [facility] Heart [place] at [facility] [address] [address] Exercise Stress Echocardiography Name: SERG CAMARA MR #: [id number] Study date: 19-Oct-2013 : 1960 Age: 52 years Gender: Male Height: 68 in Weight: 170 lb BSA: 1.91 m?? Allergies: NAPROXEN Diagnosis: 427.32 - ATRIAL FLUTTER Reading Physician: Olvin Tyson MD Referring Physician: Ten Umanzor DO FOLEY ARTIST: Katina Rico Cardiology Group: [facility] Referring Physician: Jn Cordon MD HISTORY: Atrial flutter REST ECG: Normal [...] 21-Oct-2013 08:51:53 Olvin Tyson MD ECHO ORDERABLES [facility] documented in this encounter Visit Diagnoses Diagnosis Atrial flutter (HCC)- Primary Atrial flutter Atrial flutter (HCC) Atrial flutter documented in this encounter Care Teams Voltage Tester Relationship Specialty Start Date End Date Ten Umanzor provider retired [id number] PCP - General 04/10/11 09/06/14 Stephanie Prasad RN [address] [facility] [address] [place] [address] Blank Driller 10/06/13 documented as of this encounter
--- OUTSIDE RECORDS SUMMARY | 2024-03-07 21:58 | XMS_ITS | Encounter Summary ---
Author Organization [facility] Address [address] [place] [address] Care Team Providers Care Plan Manager Name Role Phone Ten Umanzor Primary Care Provider Stephanie Patterson RN Unavailable [phone] Reason for Visit * Reason Comments Arrhythmia Pt from physicians savanah dotson, reports was in SVT. Currently in A flutter. Pt reports onset of tachycardia last night after playing soccer with daughter. * Auth/Cert - Closed Specialty Diagnoses / Procedures Referred By Rosa t Referred To Contact Inpatient Care Diagnoses Atrial flutter (HCC) [facility] 7n Neuro/Neurosrg [address] [place] [id number] Referral ID Status Reason Start Date Expiration Date Visits Re quested Visits Authorized [id number] Closed 10/07/2013 04/05/2014 1 Encounter Details Date Type Department Care Team (Latest Contact Info) Description 10/06/2013 9:11 AM CDT - 10/07/2013 10:33 AM CDT Hospital Encounter [facility] 7N NEURO/NEUROSRG [address] [place] [address] [place] [id number] [facility] [place] [address] Magen Cates MD Case Management Discharge Disposition: Home or Self Care Social [...] Sign Reading Time Taken Comments Blood Pressure 123/80 10/07/2013 8:04 AM CDT Pulse 68 10/07/2013 8:04 AM CDT Temperature 36.8 ??C (98.2 ??F) 10/07/2013 8:04 AM CD T Respiratory Rate 16 10/07/2013 8:04 AM CDT Oxygen Saturation 97% 10/07/2013 8:04 AM CDT Inhaled Oxygen Concentration - - Weight 79.5 kg (175 lb 3.2 oz) 10/07/2013 12:24 AM CDT Height 170.2 cm (5' 7.01 ) 10/06/2013 12:16 PM C DT Body Mass Index 27.43 10/06/2013 12:16 PM CDT documented in this encounter Functional [...] No 10/06/2013 documented as of this encounter Discharge Summaries * Magen Cates MD - 10/07/2013 9:11 AM CDT Physician Discharge Summary Patient Name: Serg Maldonado Date of : 1960 Admit date: 10/06/2013 Discharge date: 10/07/2013 Admitting Physician: Magen Cates MD Attending Physician: Magen Cates MD Discharge Physician: Magen Cates MD Admission Diagnosis: Atrial flutter with 2:1 block Discharge Diagnoses 1. 2:1 Atrial Flutter, uncontrolled with amiodarone and diltiazem. 2. Successful electrical cardioversion to sinus rhythm. Diagnostic Studies Recent Labs Component Name 10/07/13 0406 10/06/13 0923 01/12/13 1132 WBC 4.9 5.8 6.0 RBC 4.67 5.53* 5.15 HGB 14.6 17.4 16.3 HCT 42.2 49.0 46.6 MCV 90.4 88.6 90.5 MCHC 34.6 35.5 35.0 RDWCV 12.5 12.4 12.6 PLTCOUNT 230 296 267 NEUTPCT 62.1 60.9 60.7 LYMPHPCT 28.5 27.3 29.1 MONOCYTPCT 7.8 10.9 9.2 EOSINPCT 1.2 0.5 0.5 BASOPHILPCT 0.2 0.2 0.3 GRANSIMMPCT 0.2 0.2 0.2 LYMPHABS 1.38 1.58 1.74 MONOCYTABS 0.38 0.63 0.55 EOSINABS 0.06 0.03 0.03 BASOABS 0.01 0.01 0.02 IMMGRANSABS 0.01 0.01 0.01 Recent Labs Component Name 10/07/13 0406 10/06/13 0923 01/12/13 1132 SODIUM 140 139 142 POTASSIUM 3.8 4.2 4.1 CHLORIDE 110* 108* 108* CO2 24 24 23 BUN 14 15 16 CREATININE 0.72 0.91 0.83 GLUCOSE 76 105 102 CALCIUM 8.4* 9.1 9.0 Recent Labs Component Name 10/07/13 0406 10/06/13 1723 10/06/13 0923 TROPONIN <0.015 <0.015 <0.015 Treatments See hospital course Procedures Left lateral and right upper chest patch positions used. Patient sedated with Versed 4 mg and Fentanyl 100 mcg. A single synchronized 50 joule shock was administered with reversion to sinus rhythm. Successful electrical cardioversion to sinus rhythm. Consults Dr. Cordon - electrophysiology RECOMMENDATIONS/PLAN Given the recurrence of and the degree of symptomatology, will recommend radiofrequency catheter ablation as an out patient. ISuggest anticoagulation for 1 month post cardioversion. Hospital Course Patient presented to the ER with SOB on exertion, ECG shows 2:1 atrial flutter with ventricular rate of 155. Rate uncontrolled with amiodarone and diltiazem. Underwent electrical cardioversion, patient sedated with Versed 4 mg and Fentanyl 100mcg. A single synchronized 50 joule shock was administered with reversion to sinus rhythm. No complications. Remained in SR. Patient will follow up with for probable atrial flutter ablation. Xarelto added, started on diltiazem. Discharged pain free in stable condition. Condition at discharge: stable Disposition: Home Code Status At Discharge Full Code Patient Instructions Discharge Medication List Unreviewed Medications Instructions Authorizing Provider B Complex-Vitamin B12 Tabs Take 1 tablet by mouth once daily. GLUCOSAMINE CHONDR COMPLEX 500-400 MG capsule Generic drug: glucosamine-chondroitin Take 1 capsule by mouth once daily. * hydrocodone-acetaminophen 5-325 MG tablet Commonly known as: NORCO Take 1 Tab by mouth every 4 hours as needed for Pain. Isaac Garcia * hydrocodone-acetaminophen 5-325 MG tablet Commonly known as: NORCO Take 1 Tab by mouth every 4 hours as needed for Pain. Isaac Garcia MAGNESIUM PO Take 1 tablet by mouth once daily. Patient is unsure of dosage. * Notice: This list has 2 medication(s) that are the same as other medications prescribed for you. Read the directions carefully, and ask your doctor or other care provider to review them with you. No discharge procedures on file. Discharge time: less than 30 minutes. Magen Cates MD CC: Ten Umanzor MD documented in this encounter Medications at Time [...] as of this encounter Progress Notes * Becky Damon - 10/15/2013 10:42 AM CDTQuick Note: Pt informed * Magen Cates MD - 10/12/2013 9:43 AM CDTQuick Note: Tell him echocardiogram looks normal. * Harsha Irvin RN - 10/07/2013 9:53 AM CDT Shift summary: pt rested throughout shift. No problems noted. Vss. Aox4. Call light within reach. Lines d.c. D.c. Instructions given. Verbalized understanding. Will continue to monitor until ride arrives. Harsha Irvin RN 10/07/2013 9:53 AM * Magen Cates MD - 10/07/2013 8:48 AM CDT Cardiology Progress Note Admit Date: 10/06/2013 Hospital Day: Hospital Day: 1 Symptoms No complaints overnight. Denies CP, SOB. NSR since cardioversion yesterday Tele: SR HR 70s Vital signs Vitals: 10/06/13 2016 10/07/13 0024 10/07/13 0356 10/07/13 0804 BP: 106/70 103/70 112/76 123/80 Pulse: 73 64 68 68 Temp: 98 ??F 97.7 ??F 98.7 ??F 98.2 ??F Resp: 18 16 16 16 Weight: 79.47 kg (175 lb 3.2 oz) SpO2: 96% 99% 100% 97% Intake/Output Summary (Last 24 hours) at 10/07/13 0848 Last data filed at 10/07/13 0811 Gross per 24 hour Intake 240 ml Output 0 ml Net 240 ml Exam Lungs: Clear to auscultation and percussion Heart: S1 and S2 normal. No murmur. No gallop or rub Abdomen: Soft, nontender, bowel sounds active. Extremities: No edema ?? SCHEDULED MEDICATIONS: ?? 0.9% NaCl injection 10 mL, Intracatheter, q8h ?? famotidine (PEPCID) injection 20 mg, Intravenous, BID ?? heparin injection 5,000 Units, Subcutaneous, BID ?? iohexol (OMNIPAQUE 350) contrast, Intravenous, Contrast - Once ?? CONTINUOUS MEDICATIONS: ?? 0.9% NaCl infusion, Intravenous, Continuous ?? PRN MEDICATIONS: ?? 0.9% NaCl injection 10 mL, Intracatheter, PRN ?? 0.9% NaCl injection 2-10 mL, Intracatheter, PRN ?? 0.9% NaCl IV Bolus, Intravenous, PRN ?? diltiazem (cardIZEM) injection 5 mg, Intravenous, PRN ?? nitroglycerin (NITROSTAT) tablet 0.4 mg, Sublingual, q5 min PRN Labs Recent Labs Component Name 10/07/13 0406 10/06/13 0923 01/12/13 1132 SODIUM 140 139 142 POTASSIUM 3.8 4.2 4.1 CHLORIDE 110* 108* 108* CO2 24 24 23 BUN 14 15 16 CREATININE 0.72 0.91 0.83 GLUCOSE 76 105 102 Recent Labs Component Name 10/07/13 0406 10/06/13 0923 01/12/13 1132 WBC 4.9 5.8 6.0 HGB 14.6 17.4 16.3 HCT 42.2 49.0 46.6 PLTCOUNT 230 296 267 Recent Labs Component Name 10/07/13 0406 10/06/13 1723 10/06/13 0923 TROPONIN <0.015 <0.015 <0.015 Cardiographics Echo 10/07/2013: Normal LV systolic function, trace TR ASSESSMENT 1. Atrial flutter. PLAN 1. Home on Xarelto and diltiazem 2. See Dr. Cordon as outpatient for atrial flutter ablation Magen Cates MD * Kavitha Pace PA - 10/07/2013 8:42 AM CDT Patient examined. Chart reviewed. I shared this information with Dr. Umanzor. He and I agree with thecurrent diagnosis and treatment plan. Will continue to follow. * Stephanie Prasad RN - 10/07/2013 8:17 AM CDT Case Management Initial Assessment Case Management screen completed, welcome letter given. Met with: patient Lives with: Lives with:: +Spouse;+Children Family Support (name and phone): see face sheet Anticipated Discharge Date: Anticipated Discharge Date: 10/07/13 Anticipated Disposition at Discharge: Anticipated level of care / disposition at discharge: *Home Prior Level of Functioning: Independent with ADL's Equipment at Home: Equipment At Home: None PCP: Erna and patient will make own follow up appointment Medication Needs: None SW Referral: no If patient requires HHC at discharge, he/she requests: Transportation: Transportation at discharge: Family Comments: No additional discharge planning needs identified. Will continue to follow. For any questions or needs please contact: Casemanager Name/Phone number: Stephanie Prasad RN [phone] * Victorina La RN - 10/07/2013 5:34 AM CDT Shift summary= pt. Has rested quietly with eyes closed. C/o headache early in shift and given tylenol as ordered. Denies pain or discomfort at this time. Telemetry shows sinus rhythm with heart rate in the 60-70's. Labs drawn and sent to lab. Call light within reach. * Lisa Olivier RN - 10/06/2013 7:35 PM CDT Shift Summary: 1215 Admission as documented, patient has no complain of pain or SOB, stated he can feel his HR is elevated, VSS as documented, ST 130's on monitor 1330 patient HR remains elevated 140's notified and plan for bedside cardioversion 1430 and cardiology nurse Myranda and this nurse at bedside, cardioversion successful, frequent vitals as documented, O2 at 2L post procedure and weaned off O2 once awake, SR 70's to 80's, 1700 tolerating regular diet, no CP or SOB, VS stable and remains in SR, reported off to oncoming shift. documented in this encounter H&P Notes * Magen Cates MD - 10/06/2013 10:04 AM CDT Cardiology History and Physical Reason for Admission: Rapid atrial flutter History of Present Illness: The patient is a very pleasant 52 y.o. male with a history including atrial flutter in December 2012. Patient presented to the ER this morning with a rapid heart rate. ECG shows 2:1 atrial flutter with ventricular rate of 155. 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 [place] like his heart rate was slightly elevated , so he went home and took 30 mg of diltiazem at 10pm and 2am. He was unable to sleep, as he continued to feel palpitations and some SOB with exertion. 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 Denies CP, dizziness, no syncope or edema. He strained his lower back a few weeks ago and has been sleeping poorly since then. Last December (12/2012) he presented to the ER for a similar situation. Found to have rapid atrial flutter, treated with IV cardizem with reversion to SR, sent home with Holter monitor for one month.Per patient, results were negative. However Dr. Umanzor started him on cardizem 30 mg every 4 hours for awhile . No recent cardiac workup. No past medical history on file. Past Surgical History Procedure Laterality Date ??? Shoulder arthroscopy ??? Carpal tunnel surgery ??? Hernia repair, inguinal 04/11/11 Meds: none Allergies Allergen Reactions ??? Naproxen GI Discomfort Social History: History Substance Use Topics ??? Smoking status: Never Smoker ??? Smokeless tobacco: Not on file ??? Alcohol Use: 0.5 oz/week 1 Cans of beer per week , director of social work at [employer] Family History: Mom - PPM No premature CAD Review of Symptoms: Constitutional: Negative for fever, chills, malaise/fatigue and diaphoresis. Psychiatric: Negative for depression and anxiety. Skin: Negative for rash and itching. HENT: Negative for headaches, lightheadedness, and congestion. Negative for vertigo. Eyes: Negative for blurred vision and itching. Cardiovascular: Negative for chest pain, Negative for palpitations and syncope. Positive for rapid heart rate Respiratory: Negative for cough and sputum production. Positive for shortness of breath. Gastrointestinal: Negative for nausea, vomiting, abdominal pain and diarrhea. Musculoskeletal: Negative for muscle weakness, extremity redness or swelling. Neurological: Negative for dizziness, focal weakness, tremors and loss of consciousness. I have reviewed the ROS (review of systems) above and confirm its accurarcy. Physical Exam: BP 111/90 Pulse 157 Temp(Src) 98.2 ??F Resp 20 Wt 79.833 kg (176 lb) BMI 26.77 kg/m2 General: Well developed, well nourished, in no acute distress, oriented to person, place, and time Skin: Warm and dry Head: Normocephalic, oral mucosa and conjunctivae normal Neck: No thyromegaly or bruits. Carotid pulses 2+ Lungs: Clear to auscultation and percussion. Respirations unlabored Cardiac: PMI and JVP normal, S1 and S2 normal, no murmur, no gallop or rub. Rapid regular rate Abd: Soft, nontender, BS active, no hepatosplenomegaly or masses, no abdominal bruit or enlarged aortic pulsation Extremities: No clubbing, cyanosis. No edema. Femoral pulses 2+. Pedal pulses 2+ Musculoskeletal: Muscle strength normal. No scoliosis. Neurologic: Oriented to person, place, and time. Mood not depressed Carotid sinus massage resulted in no change in rhythm. Cardiographics: ECG: atrial flutter with 2:1 block My review of labs, imaging, notes and other tests is significant for Recent Labs Component Name 10/06/13 0923 01/12/13 1132 WBC 5.8 6.0 HGB 17.4 16.3 HCT 49.0 46.6 PLTCOUNT 296 267 Recent Labs Component Name 01/12/13 1132 SODIUM 142 POTASSIUM 4.1 CHLORIDE 108* CO2 23 BUN 16 CREATININE 0.83 GLUCOSE 102 CALCIUM 9.0 Recent Labs Component Name 01/12/13 1132 TROPONIN <0.015 Recent Labs Component Name 01/12/13 1132 ALBUMIN 3.7 ALKPHOS 59 ALT 40 AST 26 TBIL 0.6 TPROT 7.3 CXR 10/06/2013: Pending Assessment: 1. Atrial flutter with 2:1 block. Borderline hypotension with IV diltiazem 20 mg. Probably dehydrated. 2. Elevated hemoglobin. Probably volume depleted. 3. Low back pain Plan: 1. IV amiodarone load and IV digoxin 0.5 mg 2. Echocardiogram 3. IV hydration 4. Good candidate for atrial flutter ablation. Will consult Dr. Cordon. Magen Cates MD * Myranda Jc, RN - 10/06/2013 10:02 AM CDT Reason for Consultation: Rapid Afib History of Present Illness: The patient is a very pleasant 52 y.o. male with a history including atrial fibrillation. Patient presented to the ER this morning with a rapid heart rate. ECG shows 2:1 atrial flutter with ventricular rate of 155. 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 [place] like his heart rate was slightly elevated , so he went home and took 30mg ofcardizem at 10pm and 2am. 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 Denies CP, dizziness, no syncope or edema. Last December (12/2012) he presented to the ER for a similar situation. Found to have rapid atrial fibrillation, treated with IV cardizem, sent home with holter monitor for one month. Per patient, results were negative. However Dr. Umanzor started him on cardizem 30mg every 4 hours for awhile No recent cardiac workup. No past medical history on file. Past Surgical History Procedure Laterality Date ??? Shoulder arthroscopy ??? Carpal tunnel surgery ??? Hernia repair, inguinal 04/11/11 (Not in a hospital admission) Allergies Allergen Reactions ??? Naproxen GI Discomfort Social History: History Substance Use Topics ??? Smoking status: Never Smoker ??? Smokeless tobacco: Not on file ??? Alcohol Use: 0.5 oz/week 1 Cans of beer per week Family History: Mom- PPM Review of Symptoms: Constitutional: Negative for fever, chills, malaise/fatigue and diaphoresis. Psychiatric: Negative for depression and anxiety. Skin: Negative for rash and itching. HENT: Negative for headaches, lightheadedness, and congestion. Negative for vertigo. Eyes: Negative for blurred vision and itching. Cardiovascular: Negative for chest pain, Negative for palpitations and syncope. Positive for rapid heart rate Respiratory: Negative for cough and sputum production. Positive for shortness of breath. Gastrointestinal: Negative for nausea, vomiting, abdominal pain and diarrhea. Musculoskeletal: Negative for muscle weakness, extremity redness or swelling. Neurological: Negative for dizziness, focal weakness, tremors and loss of consciousness. Cardiographics: ECG: My review of labs, imaging, notes and other tests is significant for Recent Labs Component Name 10/06/13 0923 01/12/13 1132 WBC 5.8 6.0 HGB 17.4 16.3 HCT 49.0 46.6 PLTCOUNT 296 267 Recent Labs Component Name 01/12/13 1132 SODIUM 142 POTASSIUM 4.1 CHLORIDE 108* CO2 23 BUN 16 CREATININE 0.83 GLUCOSE 102 CALCIUM 9.0 Recent Labs Component Name 01/12/13 1132 TROPONIN <0.015 No results found for this basename: INR, in the last 13011 hours No results found for this basename: BNP, in the last 32030 hours No results found for this basename: DIGOXIN, in the last 83667 hours No results found for this basename: CHOL, TRIG, HDL, LDLCALC, in the last 38763 hours No results found for this basename: TSH, in the last 74096 hours No results found for this basename: MAGMGDL, in the last 53004 hours Recent Labs Component Name 01/12/13 1132 ALBUMIN 3.7 ALKPHOS 59 ALT 40 AST 26 TBIL 0.6 TPROT 7.3 CXR 10/06/2013: Pending Assessment: 1. Plan: 1. I appreciate the opportunity to participate in the care of this very pleasant patient. We will continue to follow with you. documented in this encounter Procedure Notes * Magen Cates MD - 10/06/2013 2:59 PM CDT Electrical cardioversion note. Indication: 2:1 atrial flutter, uncontrolled with amiodarone and diltiazem. Procedure: Left lateral and right upper chest patch positions used. Patient sedated with Versed 4 mg and Fentanyl 100 mcg. A single synchronized 50 joule shock was administered with reversion to sinus rhythm. Complications: none Findings: Successful electrical cardioversion to sinus rhythm. Magen Cates MD documented in this encounter Consult Notes * Shannon Cordon MD - 10/06/2013 4:22 PM CDTAssociated Order(s): IP CONSULT TO ELECTROPHYSIOLOGY ELECTROPHYSIOLOGY CONSULTATION 10/06/2013 Serg Maldonado 1960 52 y.o. male [id number] REASON FOR CONSULT Patient is seen at the request of Dr. Magen Cates in consultation regarding AFL and possible ablation Chief Complaint Patient presents with ??? Arrhythmia Pt from physicians office, reports was in SVT. Currently in A flutter. Pt reports onset of tachycardia last night after playing soccer with daughter. HISTORY OF PRESENT ILLNESS Patient is a very pleasant 52 yr old man with a past medical history of atrial flutter first diagnosed in Dec 2012 following an ER presentation during which he received cardizem infusion and revertedto sinus rhythm. He was on PO cardizem 30 mg q 6hrs for a while but this was discontinued since he had no recurrence. 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 He checked his pulse and noted it to be fast and thready and realizedhe was probably back in the SVT . He took cardizem X 2 doses and when he woke up this morning still short of breath, he decided to come to the hospital. EKG is significant for typical sawtooth pattern. He is now s/p cardioversion following failure of amiodarone and diltiazem. EP consult was placedfor consideration for ablation. With regards to stroke risk, he denies HTN, DM, CHF, prior CVA, CAD, vascular diseases. PAST MEDICAL AND SURGICAL HISTORY: No past medical history on file. Past Surgical History Procedure Laterality Date ??? Shoulder arthroscopy ??? Carpal tunnel surgery ??? Hernia repair, inguinal 04/11/11 MEDICATION: No current facility-administered medications on file prior to encounter. Current Outpatient Prescriptions on File Prior to Encounter Medication Sig Dispense Refill ??? hydrocodone-acetaminophen (NORCO) 5-325 MG tablet Take 1 Tab by mouth every 4 hours as needed for Pain. 30 Tab 0 ??? hydrocodone-acetaminophen (NORCO) 5-325 MG tablet Take 1 Tab by mouth every 4 hours as needed for Pain. 30 Tab 0 ALLERGIES Allergies Allergen Reactions ??? Naproxen GI Discomfort FAMILY HISTORY No family history of AFL SOCIAL HISTORY History Substance Use Topics ??? Smoking status: Never Smoker ??? Smokeless tobacco: Not on file ??? Alcohol Use: 0.5 oz/week 1 Cans of beer per week SYSTEMIC REVIEW 10 point review of systems was negative except as stated above/ HPI EXAMINATION BP 97/71 Pulse 70 Temp(Src) 98 ??F Resp 20 Wt 79.833 kg (176 lb) BMI 27.56 kg/m2 GENERAL Not in any respiratory or [...] nerves MUSCULOSKELETAL - , no finger clubbing EKG 10/06/13 Atrial flutter (typical) with 2: 1 AV block RVR with rate of 155b/m, nml axis, narrow QRS 78ms TELEMETRY/HOLTER/EVENT MONITOR Initially atrial flutter with RVR but now sinus rhythm LABS: Recent Labs Component Name 10/06/13 0923 01/12/13 1132 WBC 5.8 6.0 HGB 17.4 16.3 HCT 49.0 46.6 PLTCOUNT 296 267 Recent Labs Component Name 10/06/13 0923 01/12/13 1132 SODIUM 139 142 POTASSIUM 4.2 4.1 CHLORIDE 108* 108* CO2 24 23 BUN 15 16 CREATININE 0.91 0.83 GLUCOSE 105 102 CALCIUM 9.1 9.0 No results found for this basename: BNP, in the last [address] angio Findings: No main, lobar, segmental, or subsegmental pulmonary embolism seen. No thoracic aortic aneurysm or dissection. Normal heart size without pericardial fluid or thickening. No mediastinal or hilar lymphadenopathy appreciated. Lungs are clear without airspace consolidation or pulmonary edema. No pleural effusion or pneumothorax. No acute bony abnormality seen. IMPRESSION No evidence of pulmonary embolism. 2D ECHO Pending ASSESSMENT Recurrent symptomatic atrial flutter S/p Cardioversion RECOMMENDATIONS/PLAN Given the recurrence of and the degree of symptomatology, will recommend radiofrequency catheter ablation as an out patient. I described procedure in details to patient and and they are leaning towards having this done.My office will give them a call to schedule same. Suggest anticoagulation for 1 month post cardioversion. It was a pleasure meeting Serg Maldonado today. Thank you for the opportunity to participate inhis care. Shannon Cordon M.D. Cardiac [employer] [facility] [place] [phone] (office) [phone] (pager) documented in this encounter ED Notes * Dilia Rausch, RN - 10/06/2013 11:50 AM CDT Orders received from Dr Cates. Second Amiodarone gtt initiated. Pt transported to the floor. * Haritha Khan RN - 10/06/2013 11:22 AM CDT Pt to CT. * Haritha Khan RN - 10/06/2013 11:[address] Darryn Whitmore's nurse practitioner. Updated her to pt's status. Reported no change in pt'sheart rate or rhythm after medication administration. Myranda will consult with Dr. Cates. No new orders at this time, will notify again if pt's condition changes. Will continue to monitor. * Haritha Khan RN - 10/06/2013 10:45 AM CDT Pt resting quietly, with room lights off. Pt reports no changes in symptoms. Pt updated to plan of care. No questions or concerns at this time. Bed in lowest locked position, call light within reach.Will continue to monitor. * Haritha Khan RN - 10/06/2013 10:01 AM CDT Xray at bedside. * Haritha Khan RN - 10/06/2013 9:[address] Cates at pt's bedside. * Haritha Khan RN - 10/06/2013 9:43 AM CDT plant inspector at bedside. * Nessa Domingo RN - 10/06/2013 9:17 AM CDT Bed: [facility] Expected date: 10/06/13 Expected time: 9:00 AM Means of arrival: Other (Wheelchair from office) Comments: ED Referral- MigdaliarashidSerg boone 1960 Dx/Chief Complaint Atrial Tachycardia, SOB , ODONNELL, HR 170's EKG being sent Coming from: Dr. Umanzor Patient???s ETA: 0900 Patient???s PCP:Dr. Umanzor Request call back @ office Admit to PCP/Hospitalist if needed. AILYN [facility] Access Line 10/06/2013 at 0852 * Haritha Khan RN - 10/06/2013 9:15 AM CDT Pt presents to ED from physician's office with c/o tachycardia and arrythmias onset last night after playing soccer with daughter. Pt reports being in SVT at the physicians office. Pt denies any chest pain, SOB or dizziness. Pt c/o tightness in his head. Pt reports having similar episode in December, reports taking oral cardizem. Pt no longer on any cardiac medications. Pt to driller and reamer, pt to EKG. Dr. Torres at bedside. * Parisa Torres MD - 10/06/2013 9:08 AM CDTAssociated Order(s): ED CRITICAL CARE Provider contact with the patient: 10/06/2013 09:08 Serg Maldonado [id number] [facility] History Chief Complaint Patient presents with ??? Arrhythmia Pt from physicians office, reports was in SVT. Currently in A flutter. Pt reports onset of tachycardia last night after playing soccer with daughter. HPI Comments: 9:08 AM Serg Maldonado, a [...] of the chest. Physician: Ten Umanzor Allergies: -- Naproxen -- GI Discomfort Social history: reports that he has never smoked. He does not have any smokeless tobacco history onfile. He reports that he drinks about 0.5 ounces of alcohol per week. He reports that he does not use illicit drugs. No past medical history on file. Past Surgical History Procedure Laterality Date ??? Shoulder arthroscopy ??? Carpal tunnel surgery ??? Hernia repair, inguinal 04/11/11 No family history on file. History Social History ??? Marital Status: Spouse Name: N/A Number of Children: N/A ??? Years of Education: N/A Occupational History ??? Not on file. Social History Main Topics ??? Smoking status: Never Smoker ??? Smokeless tobacco: Not on file ??? Alcohol Use: 0.5 oz/week 1 Cans of beer per week ??? Drug Use: No ??? Sexual Activity: Not on file Other Topics Concern ??? Not on file Social History Narrative Review of Systems Review of Systems Constitutional: Negative for fever, chills, diaphoresis, appetite change and fatigue. HENT: Negative for congestion, drooling, ear discharge, ear pain, facial swelling, hearing loss, nosebleeds, postnasal drip, rhinorrhea, sinus pressure, sore throat, tinnitus and trouble swallowing. Eyes: Negative for photophobia, pain, discharge, redness and visual disturbance. Respiratory: Positive for shortness of breath. Negative for apnea, cough, choking, chest tightness,wheezing and stridor. Cardiovascular: Negative for chest pain, palpitations and leg swelling. Arrythmia Gastrointestinal: Negative for nausea, vomiting, abdominal [...] dysphoric mood, decreased concentration and agitation. The patientis not nervous/anxious and is not hyperactive. All other systems reviewed and are negative. Physical Exam BP 95/76 Pulse 159 Temp(Src) 98.2 ??F Resp 9 Ht 1.727 m (5' 7.99 ) Wt 79.833 kg (176 lb) BMI 26.77 kg/m2 SpO2 98% Physical Exam Constitutional: Vital signs are normal. He appears well-developed. Non-toxic appearance. He does not have a sickly appearance. He does not appear ill. No distress. Well looking pt. HENT: Head: Normocephalic and atraumatic. Eyes: EOM [...] and no thyromegaly present. Cardiovascular: Regular rhythm. Exam reveals no gallop, no S3, no S4 and no distant heart sounds. Pulmonary/Chest: No stridor. Abdominal: He exhibits no distension, no pulsatile liver, no abdominal bruit, no ascites, no pulsatile midline mass and no mass. There is no hepatosplenomegaly. There is no rigidity, no rebound, no guarding and no CVA tenderness. No hernia. Musculoskeletal: Right shoulder: He exhibits no bony tenderness, no swelling, no effusion and no crepitus. Lymphadenopathy: Right cervical: No deep cervical and no posterior cervical adenopathy present. Left cervical: No deep cervical and no [...] pressured, not delayed, not tangential and not slurred.He is not agitated, not aggressive, not hyperactive, [...] Ectopy: none. ECG Blocks: none. Lab Interpretation Oxygen Saturation Interpretation The oxygen saturation level is: 99%. The patient was on Room Air for the saturation measurement. Measurement frequency: Spot Check. Oxygen saturation interpretation is Normal. Intervention(s) used: None. Results for orders placed during the hospital encounter of 10/06/13 TROPONIN I Result Value Range Troponin I <0.015 0.000-0.049 ng/mL CBC W AUTO DIFFERENTIAL Result Value Range WBC 5.8 4.4-10.7 x10^9/L RBC 5.53 (*) 3.80-5.40 x10^12/L Hgb 17.4 12.0-17.6 gm/dL HCT 49.0 35.2-51.7 % MCV 88.6 80.7-98.3 fl MCH 31.5 26.7-34.0 pg MCHC 35.5 30.8-35.9 gm/dL Plt Ct 296 153-416 x10^9/L RDW-CV 12.4 12.1-14.9 % MPV 9.9 9.4-12.9 fl Neutro 60.9 44.0-73.0 % Lymph 27.3 20.0-43.0 % Hawkins 10.9 5.0-13.0 % Eos 0.5 0.0-6.0 % Baso 0.2 0.0-2.0 % Immature Grans 0.2 0-1 % Neutro Abs 3.53 2.01-7.14 x10^9/L Lymph Abs 1.58 1.07-3.94 x10^9/L Hawkins Abs 0.63 0.26-1.07 x10^9/L Eosin Abs 0.03 0-0.47 x10^9/L Baso Abs 0.01 0-0.08 x10^9/L Immature Grans Abs 0.01 0.00-0.06 x10^9/L COMPREHENSIVE METABOLIC PANEL Result Value Range Glucose 105 74-106 mg/dL Sodium 139 136-145 mmol/L Potassium 4.2 3.5-5.1 mmol/L Chloride 108 (*) 98-107 mmol/L CO2 24 22-31 mmol/L Calcium 9.1 8.5-10.1 mg/dL Anion Gap 7 5-15 mmol/L BUN 15 7-21 mg/dL Creatinine 0.91 0.50-1.30 mg/dL eGFR MDRD >60 >60 mL/min/1.73m2 eGFR MDRD AFR AMR >60 >60 mL/min/1.73m2 Alk Phos 63 38-126 U/L ALT/SGPT 39 12-78 U/L AST/SGOT 25 5-40 U/L Protein Total 7.6 6.4-8.2 gm/dL Albumin 4.1 3.4-5.0 gm/dL Bili Total 0.7 0.2-1.0 mg/dL XR CHEST 1VW PORTABLE Final Result: No acute disease. CT CHEST PE Final Result: No evidence of pulmonary embolism. Progress Notes 9:24 AM: Paged cardiology. 9:28 AM: I discussed with fletcher Mckeonah for Dr. Cates (Cardiology) all pertinent aspects of thecase including HPI details, physical exam findings, testing [...] Will consult on case. 10:00 AM: Dr. Cates will accept the pt at this time. ED Course Medical Decision Making I have reviewed the: Previous Chart, Nursing Notes and Vitals. I have interpreted the following results: Labs, 12 Lead EKG, Rhythm Strip, X- Ray, CT Scans and Oxygen Saturation. I have discussed the case with Cardiology (Myranda for Dr. Cates). Orders Placed This Encounter ??? ED CRITICAL CARE ??? XR CHEST 1VW PORTABLE ??? CT CHEST PE ??? TROPONIN I ??? CBC W AUTO DIFFERENTIAL ??? COMPREHENSIVE METABOLIC PANEL ??? BASIC METABOLIC PANEL (CALCIUM TOTAL) ??? CBC W AUTO DIFFERENTIAL ??? TROPONIN I ??? IP CONSULT TO ELECTROPHYSIOLOGY ??? OXYGEN ??? OXYGEN ??? EKG 12-LEAD ??? 0.9% NaCl injection 2-10 mL ??? 0.9% NaCl IV Bolus ??? DISCONTD: aspirin (ASPIRIN) chew tablet 324 mg ??? nitroglycerin (NITROSTAT) tablet 0.4 mg ??? acetaminophen (TYLENOL) tablet 650 mg ??? diltiazem (cardIZEM) injection 5 mg ??? 0.9% NaCl IV Bolus ??? amiodarone (CORDARONE) IVPB 150 mg ??? digoxin (LANOXIN) injection 0.5 mg ??? 0.9% NaCl infusion ??? 0.9% NaCl injection 10 mL And ??? 0.9% NaCl injection 10 mL ??? heparin injection 5,000 Units ??? famotidine (PEPCID) injection 20 mg ??? iohexol (OMNIPAQUE 350) contrast ??? amiodarone (CORDARONE) IVPB 150 mg Diagnosis: Final diagnoses: SVT (supraventricular tachycardia) Atrial flutter (Primary) Disposition: Admit to Observation I have reviewed the information recorded by the scribe and agree with its accuracy and contents--Dr. Parisa Torres 10/06/2013 12:28 PM Transcribed by Deven Tapia acting scribe on behalf of Dr. Torres 10/06/2013 9:13 AM documented in this encounter Plan of Treatment Upcoming Encounters Date Type Department Care Team (Late st Contact Info) Description 03/22/2024 9:00 AM CONTRACT DRIVER Office Visit [facility] - Ophthalmology [address] [place] [phone] Ernesto Hawkins MD [address] [place] [phone] documented as of this encounter Procedures Procedure Name Priority Date/Time Associated Diagnosis Comments CARDIAC RHYTHM STRIP ORDER 10/08/2013 11:08 PM CDT ECHOCARDIOGRAM 2D WITH DOPPLER Routine 10/07/2013 8:43 AM CDT Atrial flutter (HCC) TROPONIN I Timed 10/07/2013 4:06 AM CDT Atrial flutter (HCC) CBC W AUTO DIFFERENTIAL AM Draw 10/08/19 4:06 AM CDT Atrial flutter (HCC) BASIC METABOLIC PANEL (CALCIUM TOTAL) AM Draw 10/07/2013 4:06 AM CDT Atrial flutter (HCC) TROPONIN I Timed 10/06/2013 5:23 PM CDT Atrial flutter (HCC) EKG 12-LEAD Routine 10/06/2013 2:23 PM CDT Atrial flutter (HCC) ED CRITICAL CARE Routine 10/06/2013 12:2 8 PM CDT Atrial flutter (HCC) CT ANGIO CHEST PULM EMBOLISM STAT 10/06/2013 11:46 AM CDT Atrial flutter (HCC) XR CHEST 1VW PORTABLE STAT 10/06/2013 10:04 AM CDT SVT (supraventricular tachycardia) TROPONIN I STAT 10/06/2013 9:23 AM CDT CBC W AUTO DIFFERENTIAL STAT 10/07/19 9:23 AM CDT COMPREHENSIVE METABOLIC PANEL STAT 10/06/2013 9:23 AM CDT EKG 12-LEAD STAT 10/06/2013 9:02 AM CDT SVT (supraventricular tachycardia) documented in this encounter Results * CARDIAC RHYTHM STRIP ORDER (10/08/2013 11:08 PM CDT) Provider Unknown CARDIAC SERVICES ORD ERABLES * ECHOCARDIOGRAM 2D WITH DOPPLER (10/07/2013 8:43 AM CDT) 10/07/2013 8:43 AM CDT Narrative [facility] - 10/07/2013 4:15 PM [address]T [address] [phone] Transthoracic Echocardiogram 2D, M-mode, Doppler, and Color Doppler Patient: SERG MALDONADO MR number: [id number] Height: 67 in Weight: 176 lb BSA: 1.92 m?? Study date: 07-Oct-2013 : 1960 Age: 52 years Gender: Male Race: Allergies: NAPROXEN Diagnoses: 427.32 - ATRIAL FLUTTER Reading Physician: ??Zheng Alonso MD Referring Physician: ??Magen Cates MD MECHANIC'S ASSISTANT: ??Greer Enriquez [facility] Cardiology Group: ??[facility] Summary: - ??Procedure information: - ??Room 714 @ 8:43AM - ??Left ventricle: - ??Systolic function was normal. Ejection fraction was estimated in the range of 55 % to 65 %. - ??There were no regional wall motion abnormalities. - ??Wall thickness was normal. - ??Left ventricular diastolic function parameters were normal. - ??Mitral valve: - ??There was mild regurgitation. - ??Left atrium: - ??The atrium was mildly dilated. Indications: Evaluate atrial fibrillation. History: Prior history: Atrial fibrillation. Procedure: The study was performed in the [facility]. This was a routine study. Room 714 @ 8:43AM The transthoracic approach was used. The study included complete 2D imaging, M-mode, complete spectral Doppler, and color Doppler. Systolic blood pressure was 123 mmHg. Diastolic blood pressure was 80 mmHg. Left ventricle: Size was normal. Systolic function was normal. Ejection fraction was estimated in the range of 55 % to 65 %. There were no regional wall motion abnormalities. Wall thickness was normal. Doppler: Left ventricular diastolic function parameters were normal. Aortic valve: The valve was trileaflet. Leaflets exhibited normal thickness and normal cuspal separation. Doppler: There was no stenosis. There was no regurgitation. Aorta: The root exhibited normal size. Mitral valve: Valve structure was normal. There was normal leaflet separation. Doppler: The transmitral velocity was within the [...] size was normal. Doppler: Systolic pressure was within the normal range. Tricuspid valve: The valve structure was normal. There was normal leaflet separation. Doppler: The transtricuspid velocity was within the normal range. There was no evidence for tricuspid stenosis. There was no regurgitation. Right atrium: Size was normal. Pericardium: The pericardium was normal in appearance. System measurement tables CW PV Vmax: 1.1 m/s AV Vmax: 1.2 m/s AV maxP.3 mmHg PV maxP.7 mmHg TR Vmax: 2.3 m/s TR maxP.9 mmHg MM LA Diam: 3.9 cm AV Cusp: 1.5 cm Ao Diam: 2.8 cm IVSd: 0.8 cm IVSs: 1 cm LVIDd: 4.9 cm LVIDs: 3.5 cm LVPWd: 1.3 cm PW LVOT Vmax: 1 m/s Lateral E/e': 4.9 Septal E/e': 6.6 MV A Maverick: 0.5 m/s MV Dec Calloway: 5 m/s2 MV E Maverick: 0.8 m/s MV E/A Ratio: 1.4 Prepared and signed by Zheng Alonso MD Signed 07-Oct-2013 16:15:00 Procedure Note Zheng Alonso MD - 10/07/[address] [phone] Transthoracic Echocardiogram 2D, M-mode, Doppler, and Color Doppler Patient: SERG MALDONADO MR number: [id number] Height: 67 in Weight: 176 lb BSA: 1.92 m?? Study date: 07-Oct-2013 : 1960 Age: 52 years Gender: Male Race: Allergies: NAPROXEN Diagnoses: 427.32 - ATRIAL FLUTTER Reading Physician: Zheng Alonso MD Referring Physician: Magen Cates MD MECHANIC'S ASSISTANT: Greer Enriquez [facility] Cardiology Group: [facility] Summary: - Procedure information: - Room 714 @ 8:43AM - Left ventricle: - Systolic function was normal. Ejection fraction was estimated in the range of 55 % to 65 %. - There were no regional wall motion abnormalities. - Wall thickness was normal. - Left ventricular diastolic function parameters were normal. - Mitral valve: - There was mild regurgitation. - Left atrium: - The atrium was mildly dilated. Indications: Evaluate atrial fibrillation. History: Prior history: Atrial fibrillation. Procedure: The study was performed in the [facility]. This was a routine study. Room 714 @ 8:43AM The transthoracic approach was used. The study included complete 2D imaging, M-mode, complete spectral Doppler, and color Doppler. Systolic blood pressure was 123 mmHg. Diastolic blood pressure was 80 mmHg. Left ventricle: Size was normal. Systolic function was normal. Ejection fraction was estimated in the range of 55 % to 65 %. There were no regional wall motion abnormalities. Wall thickness was normal. Doppler: Left ventricular diastolic function parameters were normal. Aortic valve: The valve was trileaflet. Leaflets exhibited normal thickness and normal cuspal separation. Doppler: There was no stenosis. There was no regurgitation. Aorta: The root exhibited normal size. Mitral valve: Valve structure was normal. There was normal leaflet separation. Doppler: The transmitral velocity was within the [...] size was normal. Doppler: Systolic pressure was within the normal range. Tricuspid valve: The valve structure was normal. There was normal leaflet separation. Doppler: The transtricuspid velocity was within the normal range. There was no evidence for tricuspid stenosis. There was no regurgitation. Right atrium: Size was normal. Pericardium: The pericardium was normal in appearance. System measurement tables CW PV Vmax: 1.1 m/s AV Vmax: 1.2 m/s AV maxP.3 mmHg PV maxP.7 mmHg TR Vmax: 2.3 m/s TR maxP.9 mmHg MM LA Diam: 3.9 cm AV Cusp: 1.5 cm Ao Diam: 2.8 cm IVSd: 0.8 cm IVSs: 1 cm LVIDd: 4.9 cm LVIDs: 3.5 cm LVPWd: 1.3 cm PW LVOT Vmax: 1 m/s Lateral E/e': 4.9 Septal E/e': 6.6 MV A Maverick: 0.5 m/s MV Dec Calloway: 5 m/s2 MV E Maverick: 0.8 m/s MV E/A Ratio: 1.4 Prepared and signed by Zheng Alonso MD Signed 07-Oct-2013 16:15:00 Magen Cates MD ECHO ORDERABLES [facility] * TROPONIN I (10/07/2013 4:06 AM CDT) Troponin I <0.015 0.000 - 0.049 ng/mL 10/07/2013 5:04 AM CDT [facility] Blood BLOOD SPECIMEN / Unknown 10/07/2013 4:06 AM CDT 10/07/2013 4:40 AM CDT Narrative [facility] - 10/07/2013 5:04 AM CDT Note: Diagnosis of myocardial infarction requires symptoms of ischemia or EKG changes of ischemia and TNI >99th of normal (0.05 ng/mL). Troponin should be drawn on initial assessment and 3-6 hours later as clinically indicated. Any condition resulting in myocardial cell damage can increase cardiac troponin levels. In addition to myocardial infarction, these include but are not limited to CHF, arrhythmia, myocarditis, and non-cardiac related causes such as pulmonary embolism, renal failure and sepsis. Parisa Torres MD LAB - CHEMISTRY JON JASMINE [facility] Organization Address City/State/ZIP Co de Phone Number [facility] [address] [place] [address] * CBC W AUTO DIFFERENTIAL (10/07/2013 4:06 AM CDT) WBC 4.9 4.4 - 10.7 x10^9/L 10/07/2013 4:56 AM CDT [facility] RBC 4.67 3.80 - 5.40 x10^12/L 10/07/2013 4:56 AM CDT [facility] Hemoglobin 14.6 12.0 - 17.6 gm/dL 10/07/2013 4:56 AM CDT [facility] Hematocrit 42.2 35.2 - 51.7 % 10/07/2013 4:56 AM CDT [facility] MCV 90.4 80.7 - 98.3 fl 10/07/2013 4:56 AM CDT [facility] MCH 31.3 26.7 - 34.0 pg 10/07/2013 4:56 AM CDT [facility] MCHC 34.6 30.8 - 35.9 gm/dL 10/07/2013 4:56 AM CDT [facility] Platelet Count 230 153 - 416 x10^9/L 10/07/2013 4:56 AM CDT [facility] RDW-CV 12.5 12.1 - 14.9 % 10/07/2013 4:56 AM CDT [facility] MPV 10.0 9.4 - 12.9 fl 10/07/2013 4:56 AM CDT [facility] Neutrophils % 62.1 44.0 - 73.0 % 10/07/2013 4:56 AM CDT [facility] Lymphocytes % 28.5 20.0 - 43.0 % 10/07/2013 4:56 AM CDT [facility] Monocytes % 7.8 5.0 - 13.0 % 10/07/2013 4:56 AM CDT [facility] Eosinophils % 1.2 0.0 - 6.0 % 10/07/2013 4:56 AM CDT [facility] Basophils % 0.2 0.0 - 2.0 % 10/07/2013 4:56 AM CDT [facility] Immature Granulocytes 0.2 0 - 1 % 10/07/2013 4:56 AM CDT [facility] Neutrophil Absolute 3.01 2.01 - 7.14 x10^9/L 10/07/2013 4:56 AM CDT [facility] Lymphocytes Absolute 1.38 1.07 - 3.94 x10^9/L 10/07/2013 4:56 AM CDT [facility] Monocytes Absolute 0.38 0.26 - 1.07 x10^9/L 10/07/2013 4:56 AM CDT [facility] Eosinophils Absolute 0.06 0 - 0.47 x10^9/L 10/07/2013 4:56 AM CDT [facility] Basophils Absolute 0.01 0 - 0.08 x10^9/L 10/07/2013 4:56 AM CDT [facility] Immature Granulocytes Absolute 0.01 0.00 - 0.06 x10^9/L 10/07/2013 4:56 AM CDT [facility] Blood BLOOD SPECIMEN / Unknown 10/07/2013 4:06 AM CDT 10/07/2013 4:40 AM CDT Parisa Torres MD LAB - HEMATOLOGY ORD ERABLES [facility] [address] [place] [address] * (ABNORMAL) BASIC METABOLIC PANEL (CALCIUM TOTAL) (10/07/2013 4:06 AM CDT) Glucose 76 74 - 106 mg/dL 10/07/2013 4:57 AM CDT [facility] Sodium 140 136 - 145 mmol/L 10/07/2013 4:57 AM CDT [facility] Potassium 3.8 3.5 - 5.1 mmol/L 10/07/2013 4:57 AM CDT [facility] Chloride 110(H) 98 - 107 mmol/L 10/07/2013 4:57 AM CDT [facility] CO2 24 22 - 31 mmol/L 10/07/2013 4:57 AM CDT [facility] Calcium 8.4(L) 8.5 - 10.1 mg/dL 10/07/2013 4:57 AM CDT [facility] Anion Gap 6 5 - 15 mmol/L 10/07/2013 4:57 AM CDT [facility] BUN 14 7 - 21 mg/dL 10/07/2013 4:57 AM CDT [facility] Creatinine 0.72 0.50 - 1.30 mg/dL 10/07/2013 4:57 AM CDT [facility] eGFR by MDRD >60 >60 mL/min/1.7 3m2 10/07/2013 4:57 AM CDT [facility] eGFR by MDRD >60 >60 mL/min/1.7 3m2 10/07/2013 4:57 AM CDT [facility] Blood BLOOD SPECIMEN / Unknown 10/07/2013 4:06 AM CDT 10/07/2013 4:40 AM CDT Parisa Torres MD LAB - CHEMISTRY JON JASMINE Performing Organization Address [facility] [address]/[facility] de Phone Number [facility] [address] [place] [address] * TROPONIN I (10/06/2013 5:23 PM CDT) Troponin I <0.015 0.000 - 0.049 ng/mL 10/06/2013 5:45 PM CDT [facility] Blood BLOOD SPECIMEN / Unknown 10/06/2013 5:23 PM CDT 10/06/2013 5:25 PM CDT Narrative [facility] - 10/06/2013 5:45 PM CDT Note: Diagnosis of myocardial infarction requires symptoms of ischemia or EKG changes of ischemia and TNI >99th of normal (0.05 ng/mL). Troponin should be drawn on initial assessment and 3-6 hours later as clinically indicated. Any condition resulting in myocardial cell damage can increase cardiac troponin levels. In addition to myocardial infarction, these include but are not limited to CHF, arrhythmia, myocarditis, and non-cardiac related causes such as pulmonary embolism, renal failure and sepsis. Parisa Torres MD LAB - CHEMISTRY JON JASMINE Performing Organization Address [facility] [address]/[facility] de Phone Number [facility] [address] [place] [address] * EKG 12-LEAD (10/06/2013 2:23 PM CDT) Ventricular Rate 147 BPM [facility] Atrial Rate 294 BPM [facility] QRS Duration ms 84 ms [facility] Q-T Interval ms 260 ms [facility] QTC Calculation (Bezet) 406 ms [facility] Calculated P [place] -103 degrees [facility] Calculated R [place] 63 degrees [facility] Calculated T [place] -78 degrees [facility] Interpretation EKG Atrial flutter with 2:1 A-V conduction Cannot rule out Septal infarct , age undetermined Marked ST abnormality, possible inferior subendocardial injury Abnormal ECG Confirmed by ANALISA LOZADA MD ([id number]) on 10/07/2013 9:11:34 AM [facility] 10/06/2013 2:23 PM CDT 10/07/2013 9:11 AM CDT Magen Cates MD ECG ORDERABLES [facility] * ED CRITICAL CARE (10/06/2013 12:28 PM CDT) Narrative Parisa Torres MD - 10/06/2013 12:28 PM CDT Parisa Torres MD ? 10/06/2013 12:28 PM Provider contact with the patient: 10/06/2013 ?09:08 Serg Maldonado [id number] [facility] History Chief Complaint Patient presents [...] 60.9 ??44.0-73.0 % Lymph 27.3 ??20.0-43.0 % Hawkins 10.9 ??5.0-13.0 % Eos 0.5 ??0.0-6.0 % Baso 0.2 ??0.0-2.0 % Immature Grans 0.2 ??0-1 % Neutro Abs 3.53 ??2.01-7.14 x10^9/L Lymph Abs 1.58 ??1.07-3.94 x10^9/L Hawkins Abs 0.63 ??0.26-1.07 x10^9/L Eosin Abs 0.03 [...] Will consult on case. 10:00 AM: Dr. Cates will accept the pt at this time. [...] embolism. Parisa Torres MD CT ORDERABLES * XR CHEST 1VW PORTABLE (10/06/2013 10:04 AM CDT) Anatomical Region Laterality Modality Chest Radiographic Aubree ging 10/06/2013 10:0 6 AM CDT Impressions 10/06/2013 10:07 AM CDT No acute disease. Narrative 10/06/2013 10:07 AM CDT [facility] Chest Indication: Tachycardia, arrhythmia Findings: A single portable view of the chest shows the lungs are clear. Mediastinal contour and heart size are within normal limits. Pulmonary vascularity is unremarkable. Procedure Note Tg Patel MD - 10/06/2013 [facility] Port[facility] Chest Indication: Tachycardia, arrhythmia Findings: A single portable view of the chest shows the lungs are clear. Mediastinal contour and heart size are within normal limits. Pulmonary vascularity is unremarkable. IMPRESSION No acute disease. Parisa Torres MD DIAGNOSTIC IMAGING O RDERABLES * (ABNORMAL) COMPREHENSIVE METABOLIC PANEL (10/06/2013 9:23 AM CDT) Glucose 105 74 - 106 mg/dL 10/06/2013 10:13 AM CDT [facility] Sodium 139 136 - 145 mmol/L 10/06/2013 10:13 AM CDT [facility] Potassium 4.2 3.5 - 5.1 mmol/L 10/06/2013 10:13 AM CDT [facility] Chloride 108(H) 98 - 107 mmol/L 10/06/2013 10:13 AM CDT [facility] CO2 24 22 - 31 mmol/L 10/06/2013 10:13 AM CDT [facility] Calcium 9.1 8.5 - 10.1 mg/dL 10/06/2013 10:13 AM CDT [facility] Anion Gap 7 5 - 15 mmol/L 10/06/2013 10:13 AM CDT [facility] BUN 15 7 - 21 mg/dL 10/06/2013 10:13 AM CDT [facility] Creatinine 0.91 0.50 - 1.30 mg/dL 10/06/2013 10:13 AM CDT [facility] eGFR by MDRD >60 >60 mL/min/1.7 3m2 10/06/2013 10:13 AM CDT [facility] eGFR by MDRD >60 >60 mL/min/1.7 3m2 10/06/2013 10:13 AM CDT [facility] Alkaline Phosphatase 63 38 - 126 U/L 10/06/2013 10:13 AM CDT [facility] ALT 39 12 - 78 U/L 10/06/2013 10:13 AM CDT [facility] AST 25 5 - 40 U/L 10/06/2013 10:13 AM CDT [facility] Protein Total 7.6 6.4 - 8.2 gm/dL 10/06/2013 10:13 AM CDT [facility] Albumin 4.1 3.4 - 5.0 gm/dL 10/06/2013 10:13 AM CDT [facility] Bilirubin Total 0.7 0.2 - 1.0 mg/dL 10/06/2013 10:13 AM CDT [facility] Blood BLOOD SPECIMEN / Unknown 10/06/2013 9:23 AM CDT 10/06/2013 9:58 AM CDT Parisa Torres MD LAB - CHEMISTRY JON JASMINE [facility] [id number] [place] [address] * (ABNORMAL) CBC W AUTO DIFFERENTIAL (10/06/2013 9:23 AM CDT) WBC 5.8 4.4 - 10.7 x10^9/L 10/06/2013 9:36 AM CDT [facility] RBC 5.53(H) 3.80 - 5.40 x10^12/L 10/06/2013 9:36 AM CDT [facility] Hemoglobin 17.4 12.0 - 17.6 gm/dL 10/06/2013 9:36 AM CDT [facility] Hematocrit 49.0 35.2 - 51.7 % 10/06/2013 9:36 AM CDT [facility] MCV 88.6 80.7 - 98.3 fl 10/06/2013 9:36 AM CDT [facility] MCH 31.5 26.7 - 34.0 pg 10/06/2013 9:36 AM CDT [facility] MCHC 35.5 30.8 - 35.9 gm/dL 10/06/2013 9:36 AM CDT [facility] Platelet Count 296 153 - 416 x10^9/L 10/06/2013 9:36 AM CDT [facility] RDW-CV 12.4 12.1 - 14.9 % 10/06/2013 9:36 AM CDT [facility] MPV 9.9 9.4 - 12.9 fl 10/06/2013 9:36 AM CDT [facility] Neutrophils % 60.9 44.0 - 73.0 % 10/06/2013 9:36 AM CDT [facility] Lymphocytes % 27.3 20.0 - 43.0 % 10/06/2013 9:36 AM CDT [facility] Monocytes % 10.9 5.0 - 13.0 % 10/06/2013 9:36 AM CDT [facility] Eosinophils % 0.5 0.0 - 6.0 % 10/06/2013 9:36 AM CDT [facility] Basophils % 0.2 0.0 - 2.0 % 10/06/2013 9:36 AM CDT [facility] Immature Granulocytes 0.2 0 - 1 % 10/06/2013 9:36 AM CDT [facility] Neutrophil Absolute 3.53 2.01 - 7.14 x10^9/L 10/06/2013 9:36 AM CDT [facility] Lymphocytes Absolute 1.58 1.07 - 3.94 x10^9/L 10/06/2013 9:36 AM CDT [facility] Monocytes Absolute 0.63 0.26 - 1.07 x10^9/L 10/06/2013 9:36 AM CDT [facility] Eosinophils Absolute 0.03 0 - 0.47 x10^9/L 10/06/2013 9:36 AM CDT [facility] Basophils Absolute 0.01 0 - 0.08 x10^9/L 10/06/2013 9:36 AM CDT [facility] Immature Granulocytes Absolute 0.01 0.00 - 0.06 x10^9/L 10/06/2013 9:36 AM CDT [facility] Blood BLOOD SPECIMEN / Unknown 10/06/2013 9:23 AM CDT 10/06/2013 9:31 AM CDT Parisa Torres MD LAB - HEMATOLOGY ORD ERABLES [facility] [id number] [place] [address] * TROPONIN I (10/06/2013 9:23 AM CDT) Troponin I <0.015 0.000 - 0.049 ng/mL 10/06/2013 10:13 AM CDT [facility] Blood BLOOD SPECIMEN / Unknown 10/06/2013 9:23 AM CDT 10/06/2013 9:58 AM CDT Narrative [facility] - 10/06/2013 10:13 AM CDT Note: Diagnosis of myocardial infarction requires symptoms of ischemia or EKG changes of ischemia and TNI >99th of normal (0.05 ng/mL). Troponin should be drawn on initial assessment and 3-6 hours later as clinically indicated. Any condition resulting in myocardial cell damage can increase cardiac troponin levels. In addition to myocardial infarction, these include but are not limited to CHF, arrhythmia, myocarditis, and non-cardiac related causes such as pulmonary embolism, renal failure and sepsis. Parisa Torres MD LAB - CHEMISTRY ORDE MITALI Performing Organization Address [facility] [address]/[facility] de Phone Number [facility] [address] [place] [address] * EKG 12-LEAD (10/06/2013 9:02 AM CDT) Ventricular Rate 155 BPM [facility] Atrial Rate 310 BPM [facility] QRS Duration ms 78 ms [facility] Q-T Interval ms 316 ms [facility] QTC Calculation (Bezet) 507 ms [facility] Calculated P [place] -102 degrees [facility] Calculated R [place] 27 degrees [facility] Calculated T [place] -77 degrees [facility] Interpretation EKG Atrial flutter with 2:1 A-V conduction ST & T wave abnormality, consider inferior ischemia Abnormal ECG Confirmed by LAYLA SCOTT MD ([id number]) on 10/06/2013 11:58:35 AM [facility] 10/06/2013 9:02 AM CDT 10/06/2013 11:58 AM CDT Parisa Torres MD ECG ORDERABLES Performing Organization Address [facility] [address]/[facility] de Phone Number [facility] M[facility] documented in this encounter Visit Diagnoses Diagnosis Atrial flutter (HCC)- Primary Atrial flutter SVT (supraventricular tachycardia) (HCC) Other specified cardiac dysrhythmias documented in this encounter Administered Medications Inactive Administered Medications - up to 3 most recent administrations Medication Order MAR Action Action Date Dose Rate Site 0.9% NaCl infusion at 150 mL/hr, Intravenous, CONTINUOUS, Starting on Fri10/06/13 at 1030, Until Lucita 10/07/13 at 1133 $ New Bag/Syringe 10/06/2013 10:12 AM CDT 150 mL/hr 0.9% NaCl injection 10 mL 10 mL, Intracatheter, EVERY 8 HOURS, First dose on Fri10/06/13 at 1400, Until Discontinued $ Given 10/07/2013 6:00 AM CDT 10 mL $ Given 10/06/2013 9:25 PM CDT 2.5 mL $ Given 10/06/2013 4:46 PM CDT 10 mL 0.9% NaCl injection 2-10 mL 2-10 mL, Intracatheter, PRN, Other, PIV flush, Starting on Fri10/06/13 at 0915, Until Fri10/07/13 at 1133, PIV flush Use positive pressure technique for last 0.5 ml. 2 ml for saline lock flush. 10 ml for syringe flush. $ Given 10/07/2013 6:02 AM CDT 2.5 mL 0.9% NaCl IV Bolus 1,000 mL, Administer over 30 Minutes, ONCE, 1 dose, On Fri10/06/13 at 0945 $ Given 10/06/2013 9:22 AM CDT 1,000 mL acetaminophen (TYLENOL) tablet 650 mg 650 mg, Oral, ONCE PRN, Headache, 1 dose, Starting on Fri10/06/13 at 0915, Until Fri10/06/13 at 2006, Maximum allowable Acetaminophen amount = 4 Grams (4000 mg) / 24 hours. $ Given 10/06/2013 8:06 PM CDT 650 mg amiodarone (CORDARONE) IVPB 150 mg 150 mg, at 600 mL/hr, Intravenous, ONCE, 1 dose, On Fri10/06/13 at 1015, Must infuse thru 0.22 micron filter. $ Given 10/06/2013 10:12 AM CDT 150 mg 600 mL/hr amiodarone (CORDARONE) IVPB 150 mg 150 mg, at 600 mL/hr, Intravenous, ONCE, 1 dose, On Fri10/06/13 at 1200, Must infuse thru 0.22 micron filter. $ Given 10/06/2013 11:55 AM CDT 150 mg 600 mL/hr digoxin (LANOXIN) injection 0.5 mg 0.5 mg, Intravenous, ONCE, 1 dose, On Fri10/06/13 at 1015, . WASTE DISPOSAL INSTRUCTIONS: Black Bin Disposal required. $ Given 10/06/2013 10:36 AM CDT 0.5 mg diltiazem (cardIZEM) injection 5 mg 5 mg, Intravenous, PRN, A fib with RVR, 4 doses, Starting on Fri10/06/13 at 0918, Until Fri10/07/13 at 1133, Administer IVP dose over 2 min $ Given 10/06/2013 9:15 AM CDT 5 mg $ Given 10/06/2013 9:12 AM CDT 5 mg $ Given 10/06/2013 9:08 AM CDT 5 mg famotidine (PEPCID) injection 20 mg 20 mg, Intravenous, 2 TIMES DAILY, First dose on Fri10/06/13 at 1215, Until Discontinued $ Given 10/07/2013 8:14 AM CDT 20 mg $ Given 10/06/2013 9:24 PM CDT 20 mg $ Given 10/06/2013 4:46 PM CDT 20 mg fentaNYL (SUBLIMAZE) injection 100 mcg 100 mcg, Intravenous, ONCE, 1 dose, On Fri10/06/13 at 1345, For bedside cardioversion $ Admin. by Other Provider 10/06/2013 1:45 PM CDT 100 mcg heparin injection 5,000 Units 5,000 Units, Subcutaneous, 2 TIMES DAILY, First dose on Fri10/06/13 at 1215, Until Discontinued $ Given 10/07/2013 8:14 AM CDT 5,000 Units Abdominal Tissue $ Given 10/06/2013 9:24 PM CDT 5,000 Units A bd Right Lower Quadrant $ Given 10/06/2013 4:45 PM CDT 5,000 Units A bdominal Tissue iohexol (OMNIPAQUE 350) contrast Intravenous, CONTRAST ONCE, Starting on Fri10/06/13 at 1131, Until Lucita 10/07/13 at 1133 $ Given 10/06/2013 11:32 AM CDT 80 mL midazolam (VERSED) 1 mg/ml injection ADS Med 1 dose, Starting on Fri10/06/13 at 1444, Until Fri10/06/13 at 1445, RICHARD NUÑEZ N: misti override $ Admin. by Other Provider 10/06/2013 2:45 PM CDT documented in this encounter Active and Recently Administered Medications Times are shown in CDT. Scheduled Medication Order 10/05/2013 10/06/2013 10/07/2013 0.9% NaCl injection 10 mL (CANCELED)(Linked Group 1) 10 mL, Intracatheter, EVERY 8 HOURS, First dose on Fri10/06/13 at 1400, Until Discontinued 1400 (Not Administered - Provider: Lisa M Olivier, RN - Reason: IV Currently Infusing)1646 ($ Given - Provider: Lisa Olivier RN)2125 ($ Given - Provider: Victorina La, RN) 0600 ($ Given - Provider: Victorina La RN) 0.9% NaCl IV Bolus (COMPLETED) 1,000 mL, Administer over 30 Minutes, ONCE, 1 dose, On Fri10/06/13 at 0945 0922 ($ Given - Provider: Dilia Rausch RN)0952 (Rx Stopped - Provider: Dilia Rausch RN) amiodarone (CORDARONE) IVPB 150 mg (COMPLETED) 150 mg, at 600 mL/hr, Intravenous, ONCE, 1 dose, On Fri10/06/13 at 1015, Must infuse thru 0.22 micron filter. 1012 ($ Given - Provider: Haritha Khan RN)1022 (Rx Stopped - Provider: Dilia Rausch RN) amiodarone (CORDARONE) IVPB 150 mg (COMPLETED) 150 mg, at 600 mL/hr, Intravenous, ONCE, 1 dose, On Fri10/06/13 at 1200, Must infuse thru 0.22 micron filter. 1155 ($ Given - Provider: Dilia Rausch RN)1205 (Rx Stopped - Provider: Lisa Olivier RN) digoxin (LANOXIN) injection 0.5 mg (COMPLETED) 0.5 mg, Intravenous, ONCE, 1 dose, On Fri10/06/13 at 1015, . WASTE DISPOSAL INSTRUCTIONS: Black Bin Disposal required. 1036 ($ Given - Provider: Haritha Khan RN) famotidine (PEPCID) injection 20 mg (CANCELED) 20 mg, Intravenous, 2 TIMES DAILY, First dose on Fri10/06/13 at 1215, Until Discontinued 1646 ($ Given - Provider: Lisa Olivier RN)2124 ($ Given - Provider: Victorina La RN) 0814 ($ Given - Provider: Harsha Irvin RN) fentaNYL (SUBLIMAZE) injection 100 mcg (COMPLETED) 100 mcg, Intravenous, ONCE, 1 dose, On Fri10/06/13 at 1345, For bedside cardioversion 1345 ($ Admin. by Other Provider - Provider: Lisa M Olivier, RN) heparin injection 5,000 Units (CANCELED) 5,000 Units, Subcutaneous, 2 TIMES DAILY, First dose on Fri10/06/13 at 1215, Until Discontinued 1645 ($ Given - Provider: Lisa Olivier, RN)2124 ($ Given - Provider: Victorina La RN) 0814 ($ Given - Provider: Harsha Irvin RN) iohexol (OMNIPAQUE 350) contrast (CANCELED) Intravenous, CONTRAST ONCE, Starting on Fri10/06/13 at 1131, Until Lucita 10/07/13 at 1133 1132 ($ Given - Provider: Jae Chavez, RT(R)) Continuous Medication Order 10/05/2013 10/06/2013 10/07/2013 0.9% NaCl infusion (CANCELED) at 150 mL/hr, Intravenous, CONTINUOUS, Starting on Fri10/06/13 at 1030, Until Lucita 10/07/13 at 1133 1012 ($ New Bag/Syringe - Provider: Haritha Khan RN) PRN Medication Order 10/05/2013 10/06/2013 10/07/2013 0.9% NaCl injection 2-10 mL (CANCELED) 2-10 mL, Intracatheter, PRN, Other, PIV flush, Starting on Fri10/06/13 at 0915, Until Fri10/07/13 at 1133, PIV flush Use positive pressure technique for last 0.5 ml. 2 ml for saline lock flush. 10 ml for syringe flush. 0602 ($ Given - Provider: Victorina La RN) acetaminophen (TYLENOL) tablet 650 mg (COMPLETED) 650 mg, Oral, ONCE PRN, Headache, 1 dose, Starting on Fri10/06/13 at 0915, Until Fri10/06/13 at 2006, Maximum allowable Acetaminophen amount = 4 Grams (4000 mg) / 24 hours. 2005 ($ Given - Provider: Victorina La RN) diltiazem (cardIZEM) injection 5 mg (CANCELED) 5 mg, Intravenous, PRN, A fib with RVR, 4 doses, Starting on Fri10/06/13 at 0918, Until Lucita 10/07/13 at 1133, Administer IVP dose over 2 min 0908 ($ Given - Provider: Dilia Rausch RN)0912 ($ Given - Provider: Dilia Rausch RN)0915 ($ Given - Provider: Dilia Rausch RN) No Frequency Medication Order 10/05/2013 10/06/2013 10/07/2013 midazolam (VERSED) 1 mg/ml injection ADS Med (COMPLETED) 1 dose, Starting on Fri10/06/13 at 1444, Until Fri10/06/13 at 1445, RICHARD NUÑEZ N: cabinet override 1445 ($ Admin. by Other Provider - Provider: Lisa Olivier RN) Linked Groups Order Group 1: SALINE LOCK, INSERT AND MAINTAIN (CANCELED) Routine, CONTINUOUS, Starting on Fri10/06/13 at 1215, Until Specified, New collection And 0.9% NaCl injection 10 mL (CANCELED)Jump to med 10 mL, Intracatheter, EVERY 8 HOURS, First dose on Fri10/06/13 at 1400, Until Discontinued And 0.9% NaCl injection 10 mL (CANCELED) 10 mL, Intracatheter, PRN, Other, peripheral line flush, Starting on Fri10/06/13 at 1214, Until Lucita 10/07/13 at 1133, Flush after each use and blood draws. documented in this encounter Care Teams Plan Manager Relationship Specialty Start Date End Date Ten Umanzor provider retired [id number] PCP - General 04/10/11 09/06/14 Stephanie Prasad RN [id number] [facility] [address] [place] [address] Science Liaison 10/06/13 documented as of this encounter
--- OUTSIDE RECORDS SUMMARY | 2024-03-07 21:58 | XMS_ITS | Encounter Summary ---
Author Organization [facility] Address [address] [place] [address] Care Team Providers Care Nuclear Equipment Operator Name Role Phone Ten Umanzor Primary Care Provider Unavailabl e Reason for Visit * Reason Comments RAPID HEART RATE pt presents to ed dr jose luis MALDONADO office for c/ rapid heart rate 160's here in ed. pt has a flutter years ago and does not currently take medication Encounter Details Date Type Department Care Team (Late st Contact Info) Description 01/12/2013 11:11 AM OPERATIONS PROFESSIONAL - 01/12/2013 2:05 PM OPERATIONS PROFESSIONAL Emergency ER at [address] [address] Rj Espinoza MD [address] [place] [address] [place] [address] Rapid heart rate (Primary Dx); Palpitations Discharge Disposition: Home or [...] Sign Reading Time Taken Comments Blood Pressure 101/69 01/12/2013 2:00 PM OPERATIONS PROFESSIONAL Pulse 77 01/12/2013 2:00 PM OPERATIONS PROFESSIONAL Temperature 36.7 ??C (98 ??F) 01/12/2013 11:23 AM OPERATIONS PROFESSIONAL Respiratory Rate 18 01/12/2013 2:00 PM OPERATIONS PROFESSIONAL Oxygen Saturation 98% 01/12/2013 2:00 PM OPERATIONS PROFESSIONAL Inhaled Oxygen Concentration - - Weight 81.6 kg (180 lb) 01/12/2013 11:23 AM OPERATIONS PROFESSIONAL Height 172.7 cm (5' 8 ) 01/12/2013 11:23 AM OPERATIONS PROFESSIONAL Body Mass Index 27.37 01/12/2013 11:23 AM OPERATIONS PROFESSIONAL documented in this encounter Discharge Instructions * Discharge Instructions* Rj Espinoza MD - 01/12/2013 2:00 PM OPERATIONS PROFESSIONAL Images from the original note were not included. Palpitations A palpitation is the feeling that your heartbeat is irregular or is faster than normal. It may feellike your heart is fluttering or skipping a beat. Palpitations are usually not a serious problem. However, in some cases, you may need further medical evaluation. CAUSES Palpitations can be caused by: ?? Smoking. ?? Caffeine or other stimulants, such as diet pills or energy drinks. ?? Alcohol. ?? Stress and anxiety. ?? Strenuous physical activity. ?? Fatigue. ?? Certain medicines. ?? Heart disease, especially if you have a history of arrhythmias. This includes atrial fibrillation, atrial flutter, or supraventricular tachycardia. ?? An improperly working pacemaker or defibrillator. DIAGNOSIS To find the cause of your palpitations, your caregiver will take your history and perform a physical exam. Tests may also be done, including: ?? Electrocardiography (ECG). This test records the heart's electrical activity. ?? Cardiac monitoring. This allows your caregiver to monitor your heart rate and rhythm in real time. ?? Holter monitor. This is a portable device that records your heartbeat and can help diagnose heart arrhythmias. It allows your caregiver to track your heart activity for several days, if needed. ?? Stress tests by exercise or by giving medicine that makes the heart beat faster. TREATMENT Treatment of palpitations depends on the cause of your symptoms and can vary greatly. Most cases ofpalpitations do not require any treatment other than time, relaxation, and monitoring your symptoms. Other causes, such as atrial fibrillation, atrial flutter, or supraventricular tachycardia, usually require further treatment. HOME CARE INSTRUCTIONS ?? Avoid: ?? Caffeinated coffee, tea, soft drinks, diet pills, and energy drinks. ?? Chocolate. ?? Alcohol. ?? Stop smoking if you smoke. ?? Reduce your stress and anxiety. Things that can help you relax include: ?? A method that measures bodily functions so you can learn to control them (biofeedback). ?? Yoga. ?? Meditation. ?? Physical activity such as swimming, jogging, or walking. ?? Get plenty of rest and sleep. SEEK MEDICAL CARE IF: ?? You continue to have a fast or irregular heartbeat beyond 24 hours. ?? Your palpitations occur more often. SEEK IMMEDIATE MEDICAL CARE IF: ?? You develop chest pain or shortness of breath. ?? You have a severe headache. ?? You feel dizzy, or you faint. MAKE SURE YOU: ?? Understand these instructions. ?? Will watch your condition. ?? Will get help right away if you are not doing well or get worse. Document Released: 02/07/2001 Document Revised: 08/11/2012 Document Reviewed: 04/10/2012 ExitCare?? Patient Information ??2013 [employer]. ATIONS PROFESSIONAL * Discharge Instructions* Document, Scanned - 01/15/2013 11:19 PM OPERATIONS PROFESSIONAL ATIONS PROFESSIONAL documented in this encounter Medications at Time [...] 04/11/2011 10/07/2013 documented as of this encounter Procedure Notes * Document, Scanned - 01/15/2013 11:19 PM CSTAssociated Order(s): CARDIAC EKG ORDER ATIONS PROFESSIONAL * Document, Scanned - 01/13/2013 8:53 AM CSTAssociated Order(s): EKG 12-LEAD ATIONS PROFESSIONAL * Document, Scanned - 01/13/2013 7:02 AM CSTAssociated Order(s): EKG 12-LEAD ATIONS PROFESSIONAL * Document, Scanned - 01/12/2013 5:51 PM CSTAssociated Order(s): EKG 12-LEAD ATIONS PROFESSIONAL * Document, Scanned - 01/12/2013 1:47 PM CSTAssociated Order(s): EKG 12-LEAD ATIONS PROFESSIONAL documented in this encounter ED Notes * Rj Espinoza MD - 01/14/2013 12:45 AM CST Provider contact with the patient: 01/14/2013 00:45 Kenji Camara [id number] [facility] EMERGENCY DEPARTMENT History Chief Complaint Patient presents with ??? RAPID HEART RATE pt presents to ed kala MALDONADO office for c/ rapid heart rate 160's here in ed. pt has a flutter years ago and does not currently take medication HPI No past medical history on file. Past Surgical History Procedure Date ??? Shoulder arthroscopy ??? Carpal tunnel [...] per week ??? Drug Use: No ??? Sexually Active: Not on file Other Topics Concern ??? Not on file Social History Narrative ??? No narrative on file Review of Systems ROS Physical Exam BP 101/69 Pulse 77 Temp 98 ??F Resp 18 Ht 1.727 m (5' 8 ) Wt 81.647 kg (180 lb) BMI 27.37 kg/m2 SpO2 98% Physical Exam Medications Current Outpatient Prescriptions Medication Status Sig Dispense Refill ??? hydrocodone-acetaminophen (NORCO) 5-325 MG tablet Active Take 1 Tab by mouth every 4 hours as needed for Pain. 30 Tab 0 ??? hydrocodone-acetaminophen (NORCO) 5-325 MG tablet Active Take 1 Tab by mouth every 4 hours as needed for Pain. 30 Tab 0 Procedures Procedures EKG Interpretation Lab/SPO2 Interpretation Results for orders placed during the hospital encounter of 01/12/13 TROPONIN I Component Value Range Troponin I <0.015 0.000-0.049 ng/mL CBC W AUTO DIFFERENTIAL Component Value Range WBC 6.0 4.4-10.7 x10^9/L RBC 5.15 3.80-5.40 x10^12/L Hgb 16.3 12.0-17.6 gm/dL HCT 46.6 35.2-51.7 % MCV 90.5 80.7-98.3 fl MCH 31.7 26.7-34.0 pg MCHC 35.0 30.8-35.9 gm/dL Plt Ct 267 153-416 x10^9/L RDW-CV 12.6 12.1-14.9 % MPV 10.1 9.4-12.9 fl Neutro 60.7 44.0-73.0 % Lymph 29.1 20.0-43.0 % [place] 9.2 5.0-13.0 % Eos 0.5 0.0-6.0 % Baso 0.3 0.0-2.0 % Immature Grans 0.2 0-1 % Neutro Abs 3.62 2.01-7.14 x10^9/L Lymph Abs 1.74 1.07-3.94 x10^9/L [place] Abs 0.55 0.26-1.07 x10^9/L Eosin Abs 0.03 0-0.47 x10^9/L Baso Abs 0.02 0-0.08 x10^9/L Immature Grans Abs 0.01 0.00-0.06 x10^9/L COMPREHENSIVE METABOLIC PANEL Component Value Range Glucose 102 74-106 mg/dL Sodium 142 136-145 mmol/L Potassium 4.1 3.5-5.1 mmol/L Chloride 108 (*) 98-107 mmol/L CO2 23 22-31 mmol/L Calcium 9.0 8.5-10.1 mg/dL Anion Gap 11 5-15 mmol/L BUN 16 7-21 mg/dL Creatinine 0.83 0.50-1.30 mg/dL eGFR by MDRD >60 >60 mL/min/1.73m2 eGFR by MDRD AFR AMER >60 >60 mL/min/1.73m2 Alk Phos 59 38-126 U/L ALT/SGPT 40 12-78 U/L AST/SGOT 26 5-40 U/L Protein Total 7.3 6.4-8.2 gm/dL Albumin 3.7 3.4-5.0 gm/dL Bili Total 0.6 0.2-1.0 mg/dL XR CHEST 1VW PORTABLE Final Result: No acute pulmonary disease. Edited by Yas Jade on 01/12/2013 1:01 PM Progress Notes ED Course Medical Decision Making Orders Placed This Encounter ??? XR CHEST 1VW PORTABLE ??? TROPONIN I ??? CBC W AUTO DIFFERENTIAL ??? COMPREHENSIVE METABOLIC PANEL ??? EKG 12-LEAD ??? EKG 12-LEAD ??? DISCONTD: 0.9% NaCl injection 2-10 mL ??? DISCONTD: 0.9% NaCl IV Bolus ??? DISCONTD: nitroglycerin (NITROSTAT) tablet 0.4 mg ??? DISCONTD: acetaminophen (TYLENOL) tablet 650 mg ??? diltiazem (cardIZEM) injection 20.4 mg ??? DISCONTD: 0.9% NaCl IV Bolus ??? DISCONTD: diltiazem (cardIZEM) 125 mg in NaCl 0.9 % infusion Clinical Impression Final diagnoses: Rapid heart rate (Primary) Palpitations ATIONS PROFESSIONAL * Jenn Carrasco RN - 01/12/2013 12:34 PM CST Pt present given 20 of Cardizem , repeat ekg completed pt now in sinus rhythm. Rate in the 70's. ATIONS PROFESSIONAL * Jenn Carrasco RN - 01/12/2013 12:00 PM CST Pt presents to ed via ems for c/o rapid heart rate. Pt was at MD's office and sent to ed for HR of 160's. PT denies chest pain. Pt states rapid heart rate started two days ago. Pt had A flutter yearsago but was never placed on medication. Pt denies sob chest pain n/v. Pt is alert and oriented at this time. ATIONS PROFESSIONAL * Rj Espinoza MD - 01/12/2013 11:29 AM CST Provider contact with the patient: 01/12/2013 11:30 Kenji Camara [id number] DEPREPLACED BY [facility] EMERGENCY DEPARTMENT History Chief Complaint Patient presents with ??? RAPID HEART RATE pt presents to ed drom MD office for c/ rapid heart rate 160's here in ed. pt has a flutter years ago and does not currently take medication Chief complaint narrative was entered by triage nurse, not by physician. HPI Comments: 11:30 AM Kenji Camara, a 52 y.o. male with a past medical history that includes--shoulder arthroscopy, hernia repair inguinal--presents to the ER c/o rapid heart rate onset Friday(2 days ago). He has h/o flutter 1-2 years ago. Takes OTC: vitamin B, glucosamine, and fish oil. Ptdenies smoking cigarettes at this time. Pt voices no other concerns at this time. PCP: Ten Umanzor No past medical history on file. Past Surgical History Procedure Date ??? Shoulder arthroscopy ??? Carpal tunnel [...] per week ??? Drug Use: No ??? Sexually Active: Not on file Other Topics Concern ??? Not on file Social History Narrative ??? No narrative on file Review of Systems Review of Systems Constitutional: Negative for fever and chills. Respiratory: Negative for shortness of breath. Cardiovascular: Negative for chest pain. + Rapid heart rate Gastrointestinal: Negative for nausea, vomiting and diarrhea. All other systems reviewed and are negative. Physical Exam BP 130/111 Pulse 164 Temp 98 ??F Resp 14 Ht 1.727 m (5' 8 ) Wt 81.647 kg (180 lb) BMI 27.37 kg/m2 SpO2 100% Physical Exam Nursing note and vitals reviewed. Constitutional: He is oriented to person, place, and time and well-developed, well-nourished, and in no distress. No distress. HENT: Head: Normocephalic and atraumatic. Eyes: Conjunctivae normal are normal. Pupils are equal, round, and reactive to light. Right eye exhibits no discharge. Left eye exhibits no discharge. Neck: Normal range of motion. Neck supple. Cardiovascular: Regular rhythm and normal heart sounds. Tachycardia present. SVT vs. Afib rate of 160 Pulmonary/Chest: Effort normal and breath sounds normal. No respiratory distress. He has no wheezes. He has no rales. Abdominal: Soft. Bowel sounds are normal. He exhibits no distension. There is no tenderness. There is no rebound and no guarding. Musculoskeletal: Normal range of motion. He exhibits no edema. Neurological: He is alert and oriented to person, place, and time. Gait normal. Speech is regular Skin: Skin is warm and dry. Medications Current Outpatient Prescriptions Medication Status Sig Dispense Refill ??? hydrocodone-acetaminophen (NORCO) 5-325 MG tablet Active Take 1 Tab by mouth every 4 hours as needed for Pain. 30 Tab 0 ??? hydrocodone-acetaminophen (NORCO) 5-325 MG tablet Active Take 1 Tab by mouth every 4 hours as needed for Pain. 30 Tab 0 Procedures Procedures EKG Interpretation Clinical Impression: dysrhythmia- atrial. Rhythm: artial flutter. Rate: tachycardic. Heart rate:162. Blocks: none. Acra: normal. ST Segment Comments: Diffuse non-specific ST/T changes The second EKG was changed (12:00 - Normal ECG. NSR, Rate 75.) from the first. EKG date completed: 01/12/13 EKG time completed:11:07 ECG Rhythm Interpretation Lab Interpretation Oxygen Saturation Interpretation The oxygen saturation level is: 100%. The patient was on Room Air for the saturation measurement. Measurement frequency: Spot Check. Oxygen saturation interpretation is Normal. Intervention(s) used: None. Results for orders placed during the hospital encounter of 01/12/13 TROPONIN I Component Value Range Troponin I <0.015 0.000-0.049 ng/mL CBC W AUTO DIFFERENTIAL Component Value Range WBC 6.0 4.4-10.7 x10^9/L RBC 5.15 3.80-5.40 x10^12/L Hgb 16.3 12.0-17.6 gm/dL HCT 46.6 35.2-51.7 % MCV 90.5 80.7-98.3 fl MCH 31.7 26.7-34.0 pg MCHC 35.0 30.8-35.9 gm/dL Plt Ct 267 153-416 x10^9/L RDW-CV 12.6 12.1-14.9 % MPV 10.1 9.4-12.9 fl Neutro 60.7 44.0-73.0 % Lymph 29.1 20.0-43.0 % [place] 9.2 5.0-13.0 % Eos 0.5 0.0-6.0 % Baso 0.3 0.0-2.0 % Immature Grans 0.2 0-1 % Neutro Abs 3.62 2.01-7.14 x10^9/L Lymph Abs 1.74 1.07-3.94 x10^9/L [place] Abs 0.55 0.26-1.07 x10^9/L Eosin Abs 0.03 0-0.47 x10^9/L Baso Abs 0.02 0-0.08 x10^9/L Immature Grans Abs 0.01 0.00-0.06 x10^9/L COMPREHENSIVE METABOLIC PANEL Component Value Range Glucose 102 74-106 mg/dL Sodium 142 136-145 mmol/L Potassium 4.1 3.5-5.1 mmol/L Chloride 108 (*) 98-107 mmol/L CO2 23 22-31 mmol/L Calcium 9.0 8.5-10.1 mg/dL Anion Gap 11 5-15 mmol/L BUN 16 7-21 mg/dL Creatinine 0.83 0.50-1.30 mg/dL eGFR by MDRD >60 >60 mL/min/1.73m2 eGFR by MDRD AFR AMER >60 >60 mL/min/1.73m2 Alk Phos 59 38-126 U/L ALT/SGPT 40 12-78 U/L AST/SGOT 26 5-40 U/L Protein Total 7.3 6.4-8.2 gm/dL Albumin 3.7 3.4-5.0 gm/dL Bili Total 0.6 0.2-1.0 mg/dL XR CHEST 1VW PORTABLE Final Result: No acute pulmonary disease. Edited by Yas Jade on 01/12/2013 1:01 PM Progress Notes 12:02 PM: Rechecked Pt: Updated pt on ED findings, my clinical impression, and plan of care. Pt voices no other concerns at this time. 1:36 PM: Rechecked Pt: Pt's heart rate is normal at this time. Updated pt and on ED findings and diagnosis. I have instructed pt to return to ER upon returning sx. Pt expresses understanding andagrees with plan. Pt is medically stable for d/c home at this time. I have given the patient instructions regarding his diagnosis, expectations, follow up, and return precautions. I explained to the patient that emergent conditions may arise and to return to the ER for new, worsening, or any persistent conditions. I've explained the importance of following up with his doctor--Ten Umanzor--as instructed. The patient verbalized understanding of the discharge instructions. 2:24 PM: I discussed with Dr. Umanzor (PCP) all pertinent aspects of the case including HPI details, physical exam findings, testing completed, medications given, the pt's current condition (stable), and my clinical impression. Agrees with plan for outpatient appointment. ED Course Medical Decision Making I have reviewed the: Previous Chart, Nursing Notes and Vitals. I have interpreted the following results: Labs, 12 Lead EKG, X-Ray (CXR) and Oxygen Saturation. I have discussed the case with PCP (Dr. Umanzor). Orders Placed This Encounter ??? XR CHEST 1VW PORTABLE ??? TROPONIN I ??? TROPONIN I ??? CBC W AUTO DIFFERENTIAL ??? COMPREHENSIVE METABOLIC PANEL ??? EKG 12-LEAD ??? EKG 12-LEAD ??? 0.9% NaCl injection 2-10 mL ??? 0.9% NaCl IV Bolus ??? nitroglycerin (NITROSTAT) tablet 0.4 mg ??? acetaminophen (TYLENOL) tablet 650 mg ??? diltiazem (cardIZEM) injection 20.4 mg ??? 0.9% NaCl IV Bolus ??? diltiazem (cardIZEM) 125 mg in NaCl 0.9 % infusion Diagnosis: Final diagnoses: Rapid heart rate (Primary) Palpitations New Medications: New Prescriptions No medications on file I have advised the patient to follow-up with: [place] [id number] [place] [id number] Disposition: Discharged I have reviewed the information recorded by the scribe and agree with its accuracy and contents--Dr. Espinoza 01/12/2013 2:25 PM Transcribed by Lc Moseley acting scribe on behalf of Dr. Espinoza 01/12/2013 2:25 PM ATIONS PROFESSIONAL documented in this encounter Miscellaneous Notes * Miscellaneous Scans - Document, Scanned - 01/13/2013 7:44 PM CST ATIONS PROFESSIONAL documented in this encounter Plan of Treatment Upcoming Encounters Date Type Department Care Team (Late st Contact Info) Description 03/22/2024 9:00 AM OPERATIONS PROFESSIONAL Office Visit [facility] - Ophthalmology [address] [place] [address] Ernesto Hawkins MD [address] [place] [id number] documented as of this encounter Procedures Procedure Name Priority Date/Time Associated Diagnosis Comments CARDIAC EKG ORDER 01/15/2013 11: 19 PM OPERATIONS PROFESSIONAL XR CHEST 1VW PORTABLE STAT 01/12/2013 12:27 PM OPERATIONS PROFESSIONAL Rapid heart rate EKG 12-LEAD STAT 01/12/2013 12:00 PM OPERATIONS PROFESSIONAL Rapid heart rate TROPONIN I STAT 01/12/2013 11:32 AM OPERATIONS PROFESSIONAL CBC W AUTO DIFFERENTIAL STAT 01/12/2013 11:32 AM OPERATIONS PROFESSIONAL COMPREHENSIVE METABOLIC PANEL STAT 01/12/2013 11:32 AM OPERATIONS PROFESSIONAL EKG 12-LEAD STAT 01/12/2013 11:07 AM OPERATIONS PROFESSIONAL Rapid heart rate documented in this encounter Results * CARDIAC EKG ORDER (01/15/2013 11:19 PM OPERATIONS PROFESSIONAL) Narrative 01/15/2013 11:19 PM OPERATIONS PROFESSIONAL Ordered by an unspecified provider. Transcriptions Document, Scanned - 01/15/2013 11:19 PM CST Scanned Document CARDIAC SERVICES ORD ERABLES * XR CHEST 1VW PORTABLE (01/12/2013 12:27 PM OPERATIONS PROFESSIONAL) Anatomical Region Laterality Modality Chest Radiographic Aubree ging 01/12/2013 12:5 2 PM OPERATIONS PROFESSIONAL Impressions 01/12/2013 1:38 PM OPERATIONS PROFESSIONAL No acute pulmonary disease. Edited by Yas Jade on 01/12/2013 1:01 PM Narrative 01/12/2013 1:38 PM OPERATIONS PROFESSIONAL CHEST AP PORTABLE INDICATION: Chest pain and tachycardia. FINDINGS Frontal view of the chest without prior shows no consolidation, pleural effusion or pneumothorax. The heart size is normal. Procedure Note Parish Egan MD - 01/12/2013 CHEST AP PORTABLE INDICATION: Chest pain and tachycardia. FINDINGS Frontal view of the chest without prior shows no consolidation, pleural effusion or pneumothorax. The heart size is normal. IMPRESSION No acute pulmonary disease. Edited by Yas Jade on 01/12/2013 1:01 PM Rj Espinoza MD DIAGNOSTIC IMAGING O RDERABLES * EKG 12-LEAD (01/12/2013 12:00 PM OPERATIONS PROFESSIONAL) Ventricular Rate 75 BPM [facility] Atrial Rate 75 BPM [facility] P-R Interval 128 ms [facility] QRS Duration ms 90 ms [facility] Q-T Interval ms 358 ms [facility] QTC Calculation (Bezet) 399 ms [facility]USE Calculated P Acra 60 degrees [facility] MUSE Calculated R Acra 37 degrees [facility] MUSE Calculated T Acra 11 degrees [facility] Interpretation EKG Normal sinus rhythm with sinus arrhythmia Normal ECG When compared with ECG of 12-JAN-2013 11:07, Sinus rhythm has replaced Atrial flutter Vent. rate has decreased BY ??87 BPM T wave inversion less evident in Inferior leads Nonspecific T wave abnormality no longer evident in Lateral leads Confirmed by JOSEPH MALDONADO, [facility] ([id number]) on 01/13/2013 8:52:38 AM [facility] 01/12/2013 12:0 0 PM OPERATIONS PROFESSIONAL 01/13/2013 8:52 AM OPERATIONS PROFESSIONAL Narrative [facility]USE - 01/13/2013 8:52 AM OPERATIONS PROFESSIONAL Procedure Note Document, Scanned - 01/13/2013 7:02 AM CST Transcriptions Document, Scanned - 01/13/2013 8:53 AM CST Rj Espinoza MD ECG ORDERABLES DP MUSE * (ABNORMAL) COMPREHENSIVE METABOLIC PANEL (01/12/2013 11:32 AM OPERATIONS PROFESSIONAL) Glucose 102 74 - 106 mg/dL 01/12/2013 11:59 AM [facility] Sodium 142 136 - 145 mmol/L 01/12/2013 11:59 AM [facility] Potassium 4.1 3.5 - 5.1 mmol/L 01/12/2013 11:59 AM [facility] Chloride 108(H) 98 - 107 mmol/L 01/12/2013 11:59 AM [facility] CO2 23 22 - 31 mmol/L 01/12/2013 11:59 AM [facility] Calcium 9.0 8.5 - 10.1 mg/dL 01/12/2013 11:59 AM [facility] Anion Gap 11 5 - 15 mmol/L 01/12/2013 11:59 AM [facility] BUN 16 7 - 21 mg/dL 01/12/2013 11:59 AM [facility] Creatinine 0.83 0.50 - 1.30 mg/dL 01/12/2013 11:59 AM OPERATIONS PROFESSIONAL [facility] eGFR by MDRD >60 >60 mL/min/1.7 3m2 01/12/2013 11:59 AM [facility] eGFR by MDRD >60 >60 mL/min/1.7 3m2 01/12/2013 11:59 AM [facility] Alkaline Phosphatase 59 38 - 126 U/L 01/12/2013 11:59 AM OPERATIONS PROFESSIONAL [facility] ALT 40 12 - 78 U/L 01/12/2013 11:59 AM [facility] AST 26 5 - 40 U/L 01/12/2013 11:59 AM [facility] Protein Total 7.3 6.4 - 8.2 gm/dL 01/12/2013 11:59 AM [facility] Albumin 3.7 3.4 - 5.0 gm/dL 01/12/2013 11:59 AM [facility] Bilirubin Total 0.6 0.2 - 1.0 mg/dL 01/12/2013 11:59 AM [facility] Blood BLOOD SPECIMEN / Unknown 01/12/2013 11:32 AM OPERATIONS PROFESSIONAL 01/12/2013 11:32 AM [facility] Rj Espinoza MD LAB - CHEMISTRY ORDE [facility] Organization Address City/State/ZIP Co de Phone Number [facility] [address] [place] [phone] * CBC W AUTO DIFFERENTIAL (01/12/2013 11:32 AM [facility]) WBC 6.0 4.4 - 10.7 x10^9/L 01/12/2013 11:36 AM [facility] RBC 5.15 3.80 - 5.40 x10^12/L 01/12/2013 11:36 AM [facility] Hemoglobin 16.3 12.0 - 17.6 gm/dL 01/12/2013 11:36 AM [facility] Hematocrit 46.6 35.2 - 51.7 % 01/12/2013 11:36 AM [facility] MCV 90.5 80.7 - 98.3 fl 01/12/2013 11:36 AM [facility] MCH 31.7 26.7 - 34.0 pg 01/12/2013 11:36 AM [facility] MCHC 35.0 30.8 - 35.9 gm/dL 01/12/2013 11:36 AM [facility] Platelet Count 267 153 - 416 x10^9/L 01/12/2013 11:36 AM [facility] RDW-CV 12.6 12.1 - 14.9 % 01/12/2013 11:36 AM [facility] MPV 10.1 9.4 - 12.9 fl 01/12/2013 11:36 AM [facility] Neutrophils % 60.7 44.0 - 73.0 % 01/12/2013 11:36 AM [facility] Lymphocytes % 29.1 20.0 - 43.0 % 01/12/2013 11:36 AM [facility] Monocytes % 9.2 5.0 - 13.0 % 01/12/2013 11:36 AM [facility] Eosinophils % 0.5 0.0 - 6.0 % 01/12/2013 11:36 AM [facility] Basophils % 0.3 0.0 - 2.0 % 01/12/2013 11:36 AM [facility] Immature Granulocytes 0.2 0 - 1 % 01/12/2013 11:36 AM [facility] Neutrophil Absolute 3.62 2.01 - 7.14 x10^9/L 01/12/2013 11:36 AM [facility] Lymphocytes Absolute 1.74 1.07 - 3.94 x10^9/L 01/12/2013 11:36 AM [facility] Monocytes Absolute 0.55 0.26 - 1.07 x10^9/L 01/12/2013 11:36 AM [facility] Eosinophils Absolute 0.03 0 - 0.47 x10^9/L 01/12/2013 11:36 AM [facility] Basophils Absolute 0.02 0 - 0.08 x10^9/L 01/12/2013 11:36 AM [facility] Immature Granulocytes Absolute 0.01 0.00 - 0.06 x10^9/L 01/12/2013 11:36 AM [facility] Blood BLOOD SPECIMEN / Unknown 01/12/2013 11:32 AM OPERATIONS PROFESSIONAL 01/12/2013 11:32 AM OPERATIONS PROFESSIONAL Rj Espinoza MD LAB - HEMATOLOGY ORD ERABLES Performing Organization Address [facility] Co de Phone Number [facility] [address] [place] [address] * TROPONIN I (01/12/2013 11:32 AM OPERATIONS PROFESSIONAL) [facility] Troponin I <0.015 0.000 - 0.049 ng/mL 01/12/2013 11:59 AM OPERATIONS PROFESSIONAL [facility] Blood BLOOD SPECIMEN / Unknown 01/12/2013 11:32 AM OPERATIONS PROFESSIONAL 01/12/2013 11:32 AM OPERATIONS PROFESSIONAL Narrative [facility] - 01/12/2013 11:59 AM OPERATIONS PROFESSIONAL Note: Diagnosis of myocardial infarction requires symptoms [...] as pulmonary embolism, renal failure and sepsis. Rj Espinoza MD LAB - CHEMISTRY JOSEAnayeli MITALI Performing Organization Address [facility] Co de Phone Number [facility] [id number] [place] [address] * EKG 12-LEAD (01/12/2013 11:07 AM OPERATIONS PROFESSIONAL) [facility] Ventricular Rate 162 BPM [facility] Atrial Rate 324 BPM [facility] QRS Duration ms 88 ms [facility] Q-T Interval ms 312 ms [facility] QTC Calculation (Bezet) 512 ms [facility] Calculated P Acra -90 degrees [facility] Calculated R Acra 31 degrees [facility] Calculated T Acra -78 degrees [facility] Interpretation EKG Atrial flutter with 2:1 A-V conduction Abnormal ECG When compared with ECG of 10-APR-2011 10:27, Atrial flutter has replaced Sinus rhythm Vent. rate has increased BY [address] now depressed in Inferior leads ST now depressed in Anterolateral leads T wave inversion more evident in Inferior leads Nonspecific T wave abnormality now evident in Lateral leads Confirmed by CONNER MARIE MD ([id number]) on 01/12/2013 5:51:13 PM [facility] 01/12/2013 11:0 7 AM OPERATIONS PROFESSIONAL 01/12/2013 5:51 PM OPERATIONS PROFESSIONAL Narrative [facility] - 01/12/2013 5:51 PM OPERATIONS PROFESSIONAL Procedure Note Document, Scanned - 01/12/2013 1:47 PM CST Transcriptions Document, Scanned - 01/12/2013 5:51 PM CST Rj Espinoza MD ECG ORDERABLES [facility] documented in this encounter Visit Diagnoses Diagnosis Rapid heart rate- Primary Tachycardia, unspecified Palpitations documented in this encounter Administered Medications Inactive Administered Medications - up to 3 most recent administrations Medication Order MAR Action Action Date Dose Rate Site diltiazem (cardIZEM) injection 20.4 mg 20.4 mg (0.25 mg/kg ? 81.6 kg), Intravenous, ONCE, 1 dose, On Fri01/12/13 at 1200, Administer IVP dose over 2 min $ Given 01/12/2013 11:37 AM OPERATIONS PROFESSIONAL 20.4 mg documented in this encounter Active and Recently Administered Medications Times are shown in OPERATIONS PROFESSIONAL. Scheduled Medication Order 01/10/2013 01/11/2013 01/12/2013 diltiazem (cardIZEM) injection 20.4 mg (COMPLETED) 20.4 mg (0.25 mg/kg ? 81.6 kg), Intravenous, ONCE, 1 dose, On Fri01/12/13 at 1200, Administer IVP dose over 2 min 1137 ($ Given - Prov ider: Jenn Carrasco RN) documented in this encounter Care Teams Nuclear Equipment Operator Relationship Specialty Start Date End Date Ten Umanzor provider retired [id number] PCP - General 04/10/11 09/06/14 documented as of this encounter
--- OUTSIDE RECORDS SUMMARY | 2024-03-07 21:58 | XMS_ITS | Encounter Summary ---
Author Organization [facility] Address [address] [address] Care Team Providers Care Flatwork Finisher Hand Name Role Phone Ten Umanzor Primary Care Provider Keila e Encounter Details Date Type Department Care Team (Latest Contact Info) Description 04/11/2011 7:51 AM SAFETY ASSOCIATE - 04/11/2011 2:54 PM SAFETY ASSOCIATE Hospital Encounter [facility] - Perioperative Surgery [address] [place] [phone] Isaac Garcia DO RETIRED Surgery General Discharge [...] Sign Reading Time Taken Comments Blood Pressure 120/79 04/11/2011 2:37 PM SAFETY ASSOCIATE Pulse 62 04/11/2011 2:37 PM SAFETY ASSOCIATE Temperature 36.6 ??C (97.9 ??F) 04/11/2011 2:37 PM CS T Respiratory Rate 16 04/11/2011 2:37 PM SAFETY ASSOCIATE Oxygen Saturation 96% 04/11/2011 2:37 PM SAFETY ASSOCIATE Inhaled Oxygen Concentration - - Weight 81.6 kg (179 lb 14.3 oz) 04/11/2011 8:36 AM SAFETY ASSOCIATE Height 172.7 cm (5' 8 ) 04/11/2011 8:36 AM SAFETY ASSOCIATE Body Mass Index 27.35 04/11/2011 8:36 AM SAFETY ASSOCIATE documented in this encounter Discharge Instructions * Discharge Instructions* Suki Bernabe RN - 04/11/2011 1:25 PM SAFETY ASSOCIATE If you have any questions regarding your home medications/prescriptions, please contact your primary physician. Discharge Procedure Orders DIET INSTRUCTIONS Start light diet today (i.e soup, Jell-O, toast). If no nausea or vomiting, may resume normal diet.In case of nausea or vomiting, reduce diet to fluids low in acid (water, sports drinks, white sodas). As you are able to tolerate the fluids, gradually increase your diet. IF NAUSEA AND/OR VOMITING PERSISTS, CONTACT YOUR PHYSICIAN. NO ALCOHOLIC BEVERAGES For the next 24 hours or while taking pain medication. REST TODAY Increase activity tomorrow as tolerated. Walk 10 - 15 minutes, three times a day DO NOT DRIVE Do not drive or operate hazardous machinery while taking pain medication. Order Specific Question Answer Comments For how long? Until follow up appointment NO TUB BATH Until approved by physician. Order Specific Question Answer Comments For how long? Until follow up appointment MAY SHOWER May leave incision open to air. Shower and inspect site daily. Order Specific Question Answer Comments after... Two days MAY REMOVE DRESSING If steri strips are present leave in place until follow up visit. Order Specific Question Answer Comments after... Two days GENERAL ANESTHESIA /IV SEDATION INSTRUCTIONS For the remainder of the day, plan to relax. A feeling of dizziness, light- headedness or drowsinessis not unusual. Move cautiously, fast movements can make this feeling worse. If you have been lyingdown, sit up slowly and pause briefly before standing. We strongly suggest that a responsible adultbe with you until tomorrow AM for your comfort and safety. APPLY ICE PACK TO SURGICAL SITE On / Off for next 48 Hours. CALL PHYSICIAN If you experience increasing or unrelieved pain, drainage, redness, bleeding, or swelling at surgical site and/or IV site. CALL PHYSICIAN For any vomiting or fever of 100.5 degrees or greater. CALL PHYSICIAN If unable to urinate in 6 - 8 hours or if uncomfortable. PATIENT TO CALL PHYSICIAN FOR APPOINTMENT Please call the office within 24 hours to schedule appointment. Emergency exchange number [phone] PRESCRIPTIONS GIVEN TO PATIENT/FAMILY MEDICATION INSTRUCTIONS Take prescribed pain medications as needed. Exercise caution when walking, driving, or climbing stairs. Take pain med's with food. Watch for constipation. DIET INSTRUCTIONS Start light diet today (i.e soup, Jell-O, toast). If no nausea or vomiting, may resume normal diet.In case of nausea or vomiting, reduce diet to fluids low in acid (water, sports drinks, white sodas). As you are able to tolerate the fluids, gradually increase your diet. IF NAUSEA AND/OR VOMITING PERSISTS, CONTACT YOUR PHYSICIAN. NO ALCOHOLIC BEVERAGES For the next 24 hours or while taking pain medication. REST TODAY Increase activity tomorrow as tolerated. Walk 10 - 15 minutes, three times a day DO NOT DRIVE Do not drive or operate hazardous machinery while taking pain medication. Order Specific Question Answer Comments For how long? Until follow up appointment NO TUB BATH Until approved by physician. Order Specific Question Answer Comments For how long? Until follow up appointment MAY SHOWER May leave incision open to air. Shower and inspect site daily. Order Specific Question Answer Comments after... Two days MAY REMOVE DRESSING If steri strips are present leave in place until follow up visit. Order Specific Question Answer Comments after... Two days GENERAL ANESTHESIA /IV SEDATION INSTRUCTIONS For the remainder of the day, plan to relax. A feeling of dizziness, light- headedness or drowsinessis not unusual. Move cautiously, fast movements can make this feeling worse. If you have been lyingdown, sit up slowly and pause briefly before standing. We strongly suggest that a responsible adultbe with you until tomorrow AM for your comfort and safety. APPLY ICE PACK TO SURGICAL SITE On / Off for next 48 Hours. CALL PHYSICIAN If you experience increasing or unrelieved pain, drainage, redness, bleeding, or swelling at surgical site and/or IV site. CALL PHYSICIAN For any vomiting or fever of 100.5 degrees or greater. CALL PHYSICIAN If unable to urinate in 6 - 8 hours or if uncomfortable. PATIENT TO CALL PHYSICIAN FOR APPOINTMENT Please call the office within 24 hours to schedule appointment. Emergency exchange number [phone] PRESCRIPTIONS GIVEN TO PATIENT/FAMILY MEDICATION INSTRUCTIONS Take prescribed pain medications as needed. Exercise caution when walking, driving, or climbing stairs. Take pain med's with food. Watch for constipation. Please avoid smoking and second hand smoke. The following belongings have been returned to you: Clothing: Yes, With Patient: Shirt;Pants;Jacket/Coat;Footwear;Undergarments Jewelry: None Electronic Items: None Dentures/Retainers: None Visual Aids: Yes, Glasses: With Patient Hearing Aids: None Equipment with Patient: None Home Medications: None Miscellaneous Items: None Monetary Items: None .WEIGHT MONITORING - If you have heart failure, weigh yourself every morning. Contact your physician if your weight increases by 3 pounds in 1 day OR 5 pounds in 1 week. WHAT TO DO IF SYMPTOMS WORSEN - Contact your physician if you have shortness of breath/difficulty breathing, or any swelling of your legs, ankles or feet. The discharge and medication instructions have been reviewed with me and my questions have been answered. I have received a copy of the discharge instructions. 04/11/2011 LAST PILL 115 TY ASSOCIATE * Discharge Instructions* Document, Scanned - 04/12/2011 5:17 PM SAFETY ASSOCIATE TY ASSOCIATE documented in this encounter Medications at Time [...] 04/11/2011 10/07/2013 documented as of this encounter Progress Notes * David Huitron - 04/11/2011 11:33 AM CST POST-OP ANESTHESIA EVALUATION Serg Camara is a 50 y.o. male The patient is sufficiently recovered from the acute administration of the anesthesia so as to participate in the evaluation or neurologic status has returned to pre-operative or expected level of consciousness. The post-anesthesia assessment was completed based upon the elements below. The patient is stable and has adequately recovered from anesthesia unless otherwise noted. Post-op Evaluation: Resp function: Natural Airway Cardiac Function: Stable Mental Status : Sedated/Arousable Pain: Comfortable / acceptable Nausea / Vomiting: None Post Procedure Hydration: Adequate Other complications A post-op evaluation was performed on the patient with the following assessment: No Apparent Anesthesia Complications Unless otherwise indicated, the patient is being discharged from anesthesia care. David Huitron TY ASSOCIATE * Sergey Bal CRNA - 04/11/2011 9:25 AM CST PRE-ANESTHESIA EVALUATION Evaluated By: Sergey Bal CRNA, 04/11/2011 9:25 AM Serg Hampton Westonmely is a 50 y.o. male Purpose: Hospital Problem List There is no problem list on file for this patient. Allergies Naproxen Meds No prescriptions prior to admission No current facility-administered medications for this encounter. Past Medical History No past medical history on file. Past Surgical History Past Surgical History Procedure Date ??? Shoulder arthroscopy ??? Carpal tunnel release Past Social History History Social History ??? Marital Status: Spouse [...] History Narrative ??? No narrative on file Last Vital SignsVITAL SIGNS Temp: 97.6 ??F Pulse: 61 Resp: 16 BP: 119/82 mmHg Weight: 179 lb 14.3 oz Height: 5' 8 SpO2: 99 % Pre-Eval ExamPrevious Review I reviewed previous documentation: Yes PHYSICAL EXAM NPO status: Since Midnight Heart Sounds: S1 S2 Oriented x 3: Yes Teeth: Ok Airway Class: I ANESTHESIA ASA: I Anesthesia Choices: General Post-Op: PACU PRE-EVAL REVIEW I have reviewed all previously documented physician evaluations: Yes PRE-ANESTHESIA EVALUATION Evaluated By: Sergey Bal CRNA, 04/11/2011 9:25 AM Serg Camara is a 50 y.o. male Purpose: Hospital Problem List There is no problem list on file for this patient. Allergies Naproxen Meds No prescriptions prior to admission No current facility-administered medications for this encounter. Past Medical History No past medical history on file. Past Surgical History Past Surgical History Procedure Date ??? Shoulder arthroscopy ??? Carpal tunnel release Past Social History History Social History ??? Marital Status: Spouse [...] History Narrative ??? No narrative on file Last Vital SignsVITAL SIGNS Temp: 97.6 ??F Pulse: 61 Resp: 16 BP: 119/82 mmHg Weight: 179 lb 14.3 oz Height: 5' 8 SpO2: 99 % Pre-Eval ExamPrevious Review I reviewed previous documentation: Yes PHYSICAL EXAM NPO status: Since Midnight Heart Sounds: S1 S2 Oriented x 3: Yes Teeth: Ok Airway Class: I ANESTHESIA ASA: I Anesthesia Choices: General Post-Op: PACU PRE-EVAL REVIEW I have reviewed all previously documented physician evaluations: Yes TY ASSOCIATE documented in this encounter H&P Notes * Document, Scanned - 04/16/2011 8:46 AM CST TY ASSOCIATE documented in this encounter Procedure Notes * Document, Scanned - 04/12/2011 5:17 PM CSTAssociated Order(s): CARDIAC EKG ORDER TY ASSOCIATE documented in this encounter OR Notes * Operative - Isaac Garcia DO - 04/11/2011 5:36 PM CST [facility] Operative Report [facility] OPERATIVE REPORT PATIENT: : SERG CAMARA LMR#: [id number] ADMIT DATE: 04/11/2011CCT#: [id number] DATE OF SURGERY: 04/11/2011DOB: 1960 PHYSICIAN: EDIN Medina: PREOPERATIVE DIAGNOSIS: Left groin hernia. POSTOPERATIVE DIAGNOSIS: Left pantaloon inguinal hernia. PROCEDURE PERFORMED: Repair of left pantaloon inguinal hernia with extra large Bard Marlex plug patch. SURGEON: Isaac Garcia DO PROCEDURE: The patient in the supine position on the operating table under general intubation anesthesia, left groin was prepped with Betadine solution, and sterile towels and drapes were applied. Marcaine was injected for local anesthesia. A left inguinal incision was developed through the skin and subcutaneous tissues down to the external oblique aponeurosis. The aponeurosis was then opened in the direction of its fibers down to the external ring. The cord was elevated. There is evidence of alipoma of the cord, which was removed. There is evidence of an indirect hernia and a direct hernia compatible with pantaloon type defect. Using both blunt and sharp dissection, both defects were reduced. The transversalis fascia was incised with a direct and the hernia masses were inverted. An extra large Bard Marlex plug was then placed to the defect and secured with 4-0 Vicryl. It adequately obliterates the defect. Following this, a Bard Marlex patch was placed on the floor of the inguinal can al with sutures technique. The cord was repositioned. The external oblique closed with 0-Vicryl, Adriana's fascia with 3-0 plain and skin with 4-0 Vicryl. Dressings were applied. The patient was takento recovery room in satisfactory condition. GROSS PATHOLOGY: This 50-year-old male with pain, bulging and swelling in the left groin. At surgery, a left pantaloon inguinal hernia identified, repaired with an extra large Bard Marlex plug patch.Tolerated well. Isaac Garcia DO MGV/Dante #: [id number] TY ASSOCIATE documented in this encounter Miscellaneous Notes * Miscellaneous Scans - Document, Scanned - 04/22/2011 5:14 PM CST TY ASSOCIATE * Miscellaneous Scans - Document, Scanned - 04/17/2011 5:56 PM CST TY ASSOCIATE * Miscellaneous Scans - Document, Scanned - 04/12/2011 5:17 PM CST TY ASSOCIATE * Miscellaneous Scans - Document, Scanned - 04/12/2011 5:17 PM CST TY ASSOCIATE * Miscellaneous Scans - Document, Scanned - 04/12/2011 5:17 PM CST TY ASSOCIATE * Miscellaneous Scans - Document, Scanned - 04/12/2011 5:17 PM CST TY ASSOCIATE documented in this encounter Plan of Treatment Upcoming Encounters Date Type Department Care Team (Late st Contact Info) Description 03/22/2024 9:00 AM SAFETY ASSOCIATE Office Visit [facility] - Ophthalmology [address] [place] [id number] Ernesto Hawkins MD [address] [place] [phone] documented as of this encounter Procedures Procedure Name Priority Date/Time Associated Diagnosis Comments CARDIAC EKG ORDER 04/12/2011 5:1 7 PM SAFETY ASSOCIATE documented in this encounter Results * CARDIAC EKG ORDER (04/12/2011 5:17 PM SAFETY ASSOCIATE) Narrative Transcriptions Document, Scanned - 04/12/2011 5:17 PM CST Scanned Document CARDIAC SERVICES ORD ERABLES documented in this encounter Visit Diagnoses Diagnosis Hernia of unspecified site of abdominal cavity without mention of obstruction or gangrene documented in this encounter Administered Medications Inactive Administered Medications - up to 3 most recent administrations Medication Order MAR Action Action Date Dose Rate Site ceFAZolin (ANCEF) 2 G in D5W IVPB 2 g, at 200 mL/hr, Intravenous, PRE-OP ONCE, 1 dose $ Given 04/11/2011 10:35 AM SAFETY ASSOCIATE 2 g 200 mL/hr famotidine (PEPCID) tablet 20 mg 20 mg, Oral, PRE-OP ONCE, 1 dose $ Given 04/11/2011 9:47 AM SAFETY ASSOCIATE 20 mg fentaNYL (SUBLIMAZE) injection 40.8-81.6 mcg 40.8-81.6 mcg (0.5-1 mcg/kg ? 81.6 kg), Intravenous, POST-OP MULTIPLE, Starting on Lucita 04/11/11 at 1204, Until Fri04/12/11 at 0313, 0.5 mcg/kg every 5 minutes PRN for pain of 1-5 on pain scale. 0.5 mcg/kg - 1 mcg/kg every 5 minutes PRN for pain of 6-10 on pain scale. DO NOT EXCEED 2 mcg/kg/hour. $ Given 04/11/2011 12:49 PM SAFETY ASSOCIATE 50 mcg hydrocodone-acetaminophen (NORCO) 5-325 MG tablet 1-2 Tab 1-2 tablet, Oral, EVERY 4 HOURS PRN, Pain, Starting on Lucita 04/11/11 at 1117, Until Fri04/12/11 at 0313, Maximum allowable amount = 4 Grams / 24 hours. For mild pain (pain scale 1-3) $ Given 04/11/2011 1:19 PM SAFETY ASSOCIATE 1 tablet HYDROmorphone (DILAUDID) injection 0.5 mg 0.5 mg, Intravenous, POST-OP MULTIPLE, Starting on Lucita 04/11/11 at 1204, Until Fri04/12/11 at 0313, 0.5 mg every 10 minutes PRN for pain of 5-10 on pain scale. Up to 3 mg maximum $ Given 04/11/2011 12:23 PM SAFETY ASSOCIATE 0.5 mg $ Given 04/11/2011 12:03 PM SAFETY ASSOCIATE 0.5 mg $ Given 04/11/2011 11:53 AM SAFETY ASSOCIATE 0.5 mg lactated ringers infusion at 20 mL/hr, Intravenous, PRE-OP CONTINUOUS, Until Fri04/12/11 at 0313 $ Given 04/11/2011 9:47 AM SAFETY ASSOCIATE 20 mL/hr documented in this encounter Active and Recently Administered Medications Times are shown in SAFETY ASSOCIATE. Scheduled Medication Order 04/09/2011 04/10/2011 04/11/2011 ceFAZolin (ANCEF) 2 G in D5W IVPB (COMPLETED) 2 g, at 200 mL/hr, Intravenous, PRE-OP ONCE, 1 dose 1035 ($ Given - Prov ider: David Huitron)1055 (Rx Stopped - Provider: David Huitron) famotidine (PEPCID) tablet 20 mg (COMPLETED) 20 mg, Oral, PRE-OP ONCE, 1 dose 0947 ($ Given - Prov ider: Suki Bernabe RN) fentaNYL (SUBLIMAZE) injection 40.8-81.6 mcg (CANCELED) 40.8-81.6 mcg (0.5-1 mcg/kg ? 81.6 kg), Intravenous, POST-OP MULTIPLE, Starting on Lucita 04/11/11 at 1204, Until Fri04/12/11 at 0313, 0.5 mcg/kg every 5 minutes PRN for pain of 1-5 on pain scale. 0.5 mcg/kg - 1 mcg/kg every 5 minutes PRN for pain of 6-10 on pain scale. DO NOT EXCEED 2 mcg/kg/hour. 1249 ($ Given - Prov ider: Christina Munoz RN) HYDROmorphone (DILAUDID) injection 0.5 mg (CANCELED) 0.5 mg, Intravenous, POST-OP MULTIPLE, Starting on Lucita 04/11/11 at 1204, Until Fri04/12/11 at 0313, 0.5 mg every 10 minutes PRN for pain of 5-10 on pain scale. Up to 3 mg maximum 1143 ($ Given - Prov ider: Christina Munoz RN)1153 ($ Given - Provider: Christina Munoz RN)1203 ($ Given - Provider: Christina Munoz RN)1223 ($ Given - Provider: Dee Dee Stubbs RN) Continuous Medication Order 04/09/2011 04/10/2011 04/11/2011 lactated ringers infusion (CANCELED) at 20 mL/hr, Intravenous, PRE-OP CONTINUOUS, Until Fri04/12/11 at 0313 0947 ($ Given - Prov ider: Suki Bernabe RN) PRN Medication Order 04/09/2011 04/10/2011 04/11/2011 hydrocodone-acetaminophen (NORCO) 5-325 MG tablet 1-2 Tab (CANCELED) 1-2 tablet, Oral, EVERY 4 HOURS PRN, Pain, Starting on Lucita 04/11/11 at 1117, Until Fri04/12/11 at 0313, Maximum allowable amount = 4 Grams / 24 hours. For mild pain (pain scale 1-3) 1319 ($ Given - Prov ider: Suki Bernabe RN) documented in this encounter Care Teams Flatwork Finisher Hand Relationship Specialty Start Date End Date Ten Umanzor provider retired [id number] PCP - General 04/10/11 09/06/14 documented as of this encounter
--- OUTSIDE RECORDS SUMMARY | 2024-03-07 21:58 | XMS_ITS | Encounter Summary ---
Author Organization [facility] Address [address] [place] [address] Care Team Providers Care Lmsw Name Role Phone Ten Umanzor Primary Care Provider Unavailabl e Encounter Details Date Type Department Care Team (Latest Contact Info) Description 08/02/2011 7:03 AM CDT - 08/02/2011 11:59 PM CDT Hospital Encounter [facility] Imaging Services - [address] [address] Ten Umanzor provider retired [id number] Discharge Disposition: Home or Self Care Social [...] st Contact Info) Description 03/22/2024 9:00 AM APPLICATION INTEGRATOR Office Visit [facility] - Ophthalmology [address] [place] [phone] Ernesto Hawkins MD [address] [place] [phone] documented as of this encounter Procedures Procedure Name Priority Date/Time Associated Diagnosis Comments MRI KNEE LEFT WO CONTRAST Routine 08/02/2011 7:35 AM CDT Arthralgia of knee, left documented in this encounter Results * MRI KNEE WO CONT LEFT (08/02/2011 7:35 AM CDT) Anatomical Region Laterality Modality Lower Extremity Magnetic Resonan ce 08/02/2011 7:5 7 AM CDT Narrative 08/02/2011 7:57 AM CDT [...] in detail above. Ten Umanzor MR ORDERABLES documented in this encounter Visit Diagnoses Diagnosis Arthralgia of knee, left Pain in joint, lower leg documented in this encounter Care Teams Lmsw Relationship Specialty Start Date End Date Ten Umanzor provider retired [id number] PCP - General 04/10/11 09/06/14 documented as of this encounter
--- OUTSIDE RECORDS SUMMARY | 2024-03-07 21:58 | XMS_ITS | Encounter Summary ---
Author Organization [facility] Address [address] [place] [address] Care Team Providers Care Senior Boiler Operator Name Role Phone Ten Umanzor Primary Care Provider Stephanie Patterson RN Unavailable [phone] Reason for Visit * Reason Comments Hospice Follow-up Encounter Details Date Type Department Care Team (Late st Contact Info) Description 10/15/2013 9:30 AM CDT Office Visit [facility] [address] [place] [address] [phone] [place] [address] [address] Atrial flutter (HCC) (Primary Dx) [...] Sign Reading Time Taken Comments Blood Pressure 119/77 10/15/2013 9:38 AM CDT Pulse 62 10/15/2013 9:38 AM CDT Temperature - - Respiratory Rate 14 10/15/2013 9:38 AM CDT Oxygen Saturation - - Inhaled Oxygen Concentration - - Weight 77.1 kg (170 lb) 10/15/2013 9:38 AM CDT Height 172.7 cm (5' 8 ) 10/15/2013 9:38 AM CDT Body Mass Index 25.85 10/15/2013 9:38 AM CDT documented in this encounter Functional [...] Progress Notes * Olvin Tyson MD - 10/15/2013 9:39 AM CDT [facility] Olvin Tyson MD, FACC REASON FOR VISIT: PROBLEM LIST: There is no problem list on file for this patient. SUBJECTIVE: Kenji Hampton Jax 52 y.o. male is here for: Hospice Follow-up The pt has presented for eval of atrial arrhythmia. Was admitted thru the ER -s/p CVersion Has had prior episode -converted with I/V Amio No CP No dizziness/LOC No f/c/c/r. ROS: Review of Systems - General ROS: negative Psychological ROS: negative Ophthalmic ROS: negative ENT ROS: positive for - hearing change Hematological and Lymphatic ROS: negative Endocrine ROS: negative Respiratory ROS: no cough, shortness of breath, or wheezing Cardiovascular ROS: negative Gastrointestinal ROS: no abdominal pain, change in bowel habits, or black or bloody stools Genito-Urinary ROS: no dysuria, trouble voiding, or hematuria Musculoskeletal ROS: negative Neurological ROS: positive for - headaches and weakness I have reviewed and agree with all [...] on file Social History Narrative FAMILY HISTORY: Fup-Mvsa-50h SSS S/p PPM MEDICAL HISTORY: Episodic HTN I have reviewed and agree with all [...] 1 capsule by mouth once daily. 10/07/13 Yes Magen Dickerson MD B Complex-Folic Acid (B COMPLEX-VITAMIN B12) TABS Take 1 tablet by mouth once daily. Yes HistoricalProviderMD glucosamine-chondroitin (GLUCOSAMINE CHONDR COMPLEX) 500-400 MG capsule Take 1 capsule by mouth once daily. Historical Provider, MAGNESIUM PO Take 1 tablet by mouth once daily. Patient is unsure of dosage. Historical Provider, hydrocodone-acetaminophen (NORCO) 5-325 MG tablet Take 1 Tab by mouth every 4 hours as needed for Pain. 04/11/11 Isaac Garcia, EXAMINATION: VITALS: Vitals: 10/15/13 0938 BP: 119/77 Pulse: 62 Resp: 14 Weight: 77.111 kg (170 lb) GENERAL/CONSTITUTIONAL: NAD, A/O x 3. EARS/NOSE/MOUTH/THROAT: Neck supple. No stridor heard RESPIRATORY/CHEST: CTA bilat. No wheezing or rales CARDIOVASCULAR: NSR, 1/6 systolic murmur, no S3/S4 GASTROINTESTINAL/ABDOMEN: soft, NT, ND GENITOURINARY: There is no flank tenderness bilaterally. EXTREMITIES: There is no edema bilaterally. No clubbing or cyanosis LYMPHATIC/HEME: No palpable neck glands noted. MUSCULOSKELETAL: No joint swelling throughout. SKIN: no active cellulitis seen VASCULAR: stable bilat pedal pulses NEUROLOGICAL: CN 2 - 12 grossly intact, non focal, no tremors PSYCHOLOGICAL: normal affect and mood noted LABS: Reviewed Recent Labs Component Name 10/07/13 0406 10/06/13 0923 01/12/13 1132 WBC 4.9 5.8 6.0 HGB 14.6 17.4 16.3 HCT 42.2 49.0 46.6 PLTCOUNT 230 296 267 Recent Labs Component Name 10/07/13 0406 10/06/13 1723 10/06/13 0923 TROPONIN <0.015 <0.015 <0.015 No results found for this basename: MYOGLOBIN, in the last 72402 hours Recent Labs Component Name 10/07/13 0406 10/06/13 0923 01/12/13 1132 SODIUM 140 139 142 POTASSIUM 3.8 4.2 4.1 BUN 14 15 16 CREATININE 0.72 0.91 0.83 No results found for this basename: CHOL, TRIG, HDL, LDLCALC, in the last 29602 hours No results found for this basename: BNP, in the last 22216 hours No results found for this basename: INR, in the last 92272 hours No results found for this basename: TSH, in the last 66536 hours CMP: Recent Labs Component Name 10/07/13 0406 10/06/13 0923 GLUCOSE 76 105 BUN 14 15 CREATININE 0.72 0.91 EGFR >60 >60 SODIUM 140 139 POTASSIUM 3.8 4.2 CHLORIDE 110* 108* CO2 24 24 CALCIUM 8.4* 9.1 AST -- 25 ALBUMIN -- 4.1 ALT -- 39 There is no problem list on file for this patient. IMPRESSIONS: 1. Recrnt Aflutter 2. S/p CVersion PLAN/RECOMMENDATIONS: 1. ECG-Aflutter -s/p CVersion, rpt ECG -SR 2. Contd Dilt CD 3. Contd Xarelto 4. EP eval 5. TSH 6. Fasting Lipid Profile 7. Stress Echo Risk modification addressed with patient Kenji Camara has been advised to let me know if patient has recurrent chest pain,dyspnea,syncope or palpitations. Follow up : 3 Months Ten Umanzor, thank you for allowing us to participate in the care of this patient. Closing Remark: I have reviewed and agree with all of the above entries. documented in this encounter Plan of Treatment Upcoming Encounters Date Type Department Care Team (Late st Contact Info) Description 03/22/2024 9:00 AM LENDING ACTIVITIES SUPERVISOR Office Visit [facility] - Ophthalmology [address] [facility], [place] [phone] Ernesto Hawkins MD [address] [place] [address] documented as of this encounter Visit Diagnoses Diagnosis Atrial flutter (HCC)- Primary Atrial flutter documented in this encounter Care Teams Senior Boiler Operator Relationship Specialty Start Date End Date Ten Umanzor provider retired [id number] PCP - General 04/10/11 09/06/14 Stephanie Prasad, RN [address] [facility] [address] [place] [address] Producer Arborist Manager 10/06/13 documented as of this encounter
--- OUTSIDE RECORDS SUMMARY | 2024-03-07 21:58 | XMS_ITS | Encounter Summary ---
Author Organization [facility] Address [address] [facility] [place] [address] Care Team Providers Care Kennel Supervisor Name Role Phone Ten Umanzor Primary Care Provider Stephanie Patterson RN Unavailable Reason for Referral * Cardiac - Closed Specialty Diagnoses / Procedures Referred By Rosa t Referred To Contact Cardiology Diagnoses Atrial flutter (HCC) Procedures [place] [address] [place] [phone] Referral ID Status Reason Start Date Expiration Date Visits Re quested Visits Authorized [id number] Closed 10/15/2013 04/13/2014 1 1 Reason for Visit * Cardiac - Closed Specialty Diagnoses / Procedures Referred By Rosa espinosa Referred To Contact Cardiology Diagnoses Atrial flutter (HCC) Procedures [place] [address] [place] [phone] Referral ID Status Reason Start Date Expiration Date Visits Re quested Visits Authorized [id number] Closed 10/15/2013 04/13/2014 1 1 Encounter Details Date Type Department Care Team (Latest Contact Info) Description 10/19/2013 3:00 PM CDT - 10/19/2013 11:59 PM CDT Hospital Encounter [facility] [address] [place] [address], [facility] [address] [place] [address] [place] [address] [place] [phone] Discharge Disposition: Home or Self Care [...] as of this encounter Progress Notes * Catrina Villarreal RN - 10/22/2013 12:50 PM CDTQuick Note: Per Dr. Tyson; Normal stress echo. Patient notified of results day of test. documented in this encounter Plan of Treatment Upcoming Encounters Date Type Department Care Team (Late st Contact Info) Description 03/22/2024 9:00 AM FACILITIES OPERATOR Office Visit [facility] - Ophthalmology [address] [place] [phone] Ernesto Hawkins MD [facility] [place] [phone] documented as of this encounter Procedures Procedure Name Priority Date/Time Associated Diagnosis Comments CARDIAC STRESS TEST ORDER 10/28/2013 8:36 PM CDT ECHOCARDIOGRAM STRESS Routine 10/19/2013 3:12 PM CDT Atrial flutter (HCC) documented in this encounter Results * CARDIAC STRESS TEST ORDER (10/28/2013 8:36 PM CDT) Scanned Document CARDIAC SERVICES ORD ERABLES * ECHOCARDIOGRAM STRESS (10/19/2013 3:12 PM CDT) 10/19/2013 3:12 PM CDT Narrative [facility] - 10/21/2013 8:52 AM CDT [facility] [address] [place] [address] Exercise Stress Echocardiography Name: SERG CAMARA MR #: [id number] Study date: 19-Oct-2013 : 1960 Age: 52 years Gender: Male Height: 68 in Weight: 170 lb BSA: 1.91 m?? Allergies: NAPROXEN Diagnosis: 427.32 - ATRIAL FLUTTER Reading Physician: ??Olvin Tyson MD Referring Physician: ??Ten Umanzor DO PROOF TECHNICIAN HELPER: ??Katina Rico Cardiology Group: ??[facility] Referring Physician: ??Jn Cordon MD HISTORY: [...] Procedure Note Olvin Tyson MD - 10/21/2013 [facility] [place] [address] Exercise Stress Echocardiography Name: SERG CAMARA MR #: [id number] Study date: 19-Oct-2013 : 1960 Age: 52 years Gender: Male Height: 68 in Weight: 170 lb BSA: 1.91 m?? Allergies: NAPROXEN Diagnosis: 427.32 - ATRIAL FLUTTER Reading Physician: Olvin Tyson MD Referring Physician: Ten Umanzor DO PROOF TECHNICIAN HELPER: Katina Rico Cardiology Group: [facility] Referring Physician: Jn Cordon MD HISTORY: [...] 21-Oct-2013 08:51:53 Olvin Tyson MD ECHO ORDERABLES [facility] documented in this encounter Visit Diagnoses Diagnosis Atrial flutter (HCC) Atrial flutter documented in this encounter Care Teams Kennel Supervisor Relationship Specialty Start Date End Date Ten Umanzor provider retired [id number] PCP - General 04/10/11 09/06/14 Stephanie Prasad, AILYN [address] [facility] [address] [place] [address] Business Transformation Manager 10/06/13 documented as of this encounter
--- OUTSIDE RECORDS SUMMARY | 2024-03-07 21:58 | XMS_ITS | Encounter Summary ---
Author Organization [facility] Address [address] [facility] [place] [address] Care Team Providers Care Well Digger Name Role Phone Ten Umanzor Primary Care Provider Unavailabl e Encounter Details Date Type Department Care Team (Latest Contact Info) Description 07/23/2011 4:35 PM CDT - 07/23/2011 11:59 PM CDT Hospital Encounter [facility] Imaging Services - MRI [address] [place] [address] Ten Umanzor provider retired [id number] Radiology Diagnostic Discharge Disposition: Home or Self [...] st Contact Info) Description 03/22/2024 9:00 AM TIMBER SURVEYOR Office Visit [facility] - Ophthalmology [facility] [place] [phone] Ernesto Hawkins MD [address] [place] [address] documented as of this encounter Visit Diagnoses Diagnosis Pain in joint, lower leg documented in this encounter Care Teams Well Digger Relationship Specialty Start Date End Date Ten Umanzor provider retired [id number] PCP - General 04/10/11 09/06/14 documented as of this encounter
--- OUTSIDE RECORDS SUMMARY | 2024-03-07 21:58 | XMS_ITS | Encounter Summary ---
Author Organization [facility] Address [address] [facility] [place] [address] Care Team Providers Care Manager Studio Name Role Phone Ten Umanzor Primary Care Provider Unavailabl e Encounter Details Date Type Department Care Team (Latest Contact Info) Description 07/05/2011 8:46 AM CDT - 07/05/2011 11:59 PM CDT Hospital Encounter [facility] Imaging Services - Radiology [address] [place] [address] Ten Umanzor provider retired [id number] Radiology Diagnostic Discharge Disposition: Home or Self [...] 04/11/2011 10/07/2013 documented as of this encounter Miscellaneous Notes * Miscellaneous Scans - Document, Scanned - 07/12/2011 1:17 PM CDT * Miscellaneous Scans - Document, Scanned - 07/08/2011 2:45 PM CDT documented in this encounter Plan of Treatment Upcoming Encounters Date Type Department Care Team (Late st Contact Info) Description 03/22/2024 9:00 AM SENIOR DOT NET DEVELOPER Office Visit [facility] - Ophthalmology [address] [place] [phone] Ernesto Hawkins MD [address] [place] [phone] documented as of this encounter Procedures Procedure Name Priority Date/Time Associated Diagnosis Comments XR KNEE LEFT 2VW OR LESS Routine 07/05/2011 9:14 AM CDT Pain in joint, lower leg documented in this encounter Results * XR KNEE 1 OR 2 VW [...] see above. Ten Umanzor DIAGNOSTIC IMAGING O RDERABLES documented in this encounter Visit Diagnoses Diagnosis Pain in joint, lower leg documented in this encounter Care Teams Manager Studio Relationship Specialty Start Date End Date Ten Umanzor provider retired [id number] PCP - General 04/10/11 09/06/14 documented as of this encounter
--- OUTSIDE RECORDS SUMMARY | 2024-03-07 22:01 | XMS_ITS | Encounter Summary ---
Author Organization [facility] Address [address] [place] [address] Care Team Providers Care Extruding Press Operator Name Role Phone Unavailable Primary Care Provider Unavailabl e Encounter Details Date Type Department Care Team (Late st Contact Info) Description 10/15/2023 External Device Data [facility] ABSTRACTION Provider, Abstract NO ADDRESS ON FILE Social History Tobacco Use Types Packs/Day Years Used Date Smoking Tobacco: Never Smokeless Tobacco: Never Alcohol Use Standard Drinks/Week Comments Not Currently 0 (1 standard drink = 0.6 oz pur e alcohol) Sex and Gender Information Value Date Recorded Sex Assigned at Not on file Gender Identity Not on file Sexual Orientation Not on file documented as of this encounter Plan of Treatment Not on file documented as of this encounter Visit Diagnoses Not on filedocumented in this encounter
--- OUTSIDE RECORDS SUMMARY | 2024-03-07 22:01 | XMS_ITS | Encounter Summary ---
Author Organization [facility] Address [address] [place] [address] Care Team Providers Care Commercial Property Manager Name Role Phone Unavailable Primary Care Provider Unavailabl e Encounter Details Date Type Department Care Team (Late st Contact Info) Description 05/27/2023 External Device Data STL ABSTRACTION Provider, Abstract [...]
--- OUTSIDE RECORDS SUMMARY | 2024-03-07 22:01 | XMS_ITS | Encounter Summary ---
Author Organization [facility] Address [address] [place] [address] Care Team Providers Care Production Control Specialist Name Role Phone Unavailable Primary Care Provider Unavailabl e Encounter Details Date Type Department Care Team (Late st Contact Info) Description 08/05/2023 External Device Data STL ABSTRACTION Provider, Abstract [...]
--- OUTSIDE RECORDS SUMMARY | 2024-03-07 22:01 | XMS_ITS | Encounter Summary ---
Author Organization [facility] Address [address] [place] [address] Care Team Providers Care Casino Attendant Name Role Phone Unavailable Primary Care Provider Unavailabl e Encounter Details Date Type Department Care Team (Late st Contact Info) Description 04/14/2023 External Device Data STL ABSTRACTION Provider, Abstract [...]
--- OUTSIDE RECORDS SUMMARY | 2024-03-07 22:01 | XMS_ITS | Encounter Summary ---
Author Organization [facility] Address [address] [place] [address] Care Team Providers Care Manager Human Capital Name Role Phone Unavailable Primary Care Provider Unavailabl e Reason for Visit * Auth/Cert Specialty Diagnoses / Procedures Referred By Rosa t Referred To Contact Diagnoses Prostate cancer Prostate cancer [C61] Procedures VT BIOPSY OF PROSTATE,NEEDLE/PUNCH Galo Villareal MD [address] [address] Referral ID Status Reason Start Date Expiration Date Visits Re quested Visits Authorized [id number] 10/26/2021 1 1 Encounter Details Date Type Department Care Team (Late st Contact Info) Description 12/21/2021 9:10 AM CDT - 12/21/2021 9:44 AM CDT Surgery [facility] Operating Room [address] [place] [address] Galo Villareal MD [address] [address] PROSTATE TRANSRECTAL BIOPSY Surgery Details Date/Time Status Location OR Service Patient Class Case Class Case Type Trauma Case? 12/21/2021 9:10 AM Posted [facility] OR MAIN OR 25 Urology Surgical OP/Extended Care Elective No Panel 1 Procedure LRB Anes Op Region Wound Class Comments PROSTATE TRANSRECTAL BIOPSY N/A General Prostate Cl herminia Contaminated-II Surgeon Surgeon Role Service Panel Galo Villareal MD Primary Urology 1 documented in this encounter Social History [...] suspected to have Coronavirus/COVID-19? No / Unsure 12/21/2021 7:58 AM CDT documented as of this encounter Last Filed Vital Signs Vital Sign Reading Time Taken Comments Blood Pressure 137/80 12/21/2021 8:27 AM CDT Pulse 65 12/21/2021 8:27 AM CDT Temperature 36.3 ??C (97.3 ??F) 12/21/2021 8:27 AM CD T Respiratory Rate 18 12/21/2021 8:27 AM CDT Oxygen Saturation 95% 12/21/2021 8:27 AM CDT Inhaled Oxygen Concentration - - Weight 87 kg (191 lb 12.8 oz) 12/21/2021 8:27 AM CDT Height 172.7 cm (5' 8 ) 12/21/2021 8:27 AM CDT Body Mass Index 29.16 12/21/2021 8:27 AM CDT documented in this encounter Discharge Instructions * Discharge Instructions* Oumou Truong RN - 12/21/2021 9:55 AM CDT Images from the original note were not included. [facility] - Urology Exchange: [phone] POST TRANSRECTAL ULTRASOUND AND PROSTATE BIOPSY INSTRUCTIONS Today you underwent a biopsy of your prostate under ultrasound guidance. To prevent complications from this procedure, please follow these instructions. 1. Please take your antibiotic pills as directed. 2. Increase your fluid intake for the next 1-2 days to decrease formation of blood clots in your urine. If your urine is completely clear for the first few urinations, you will probably not have to worry about this. You will probably notice blood in your urine which will be off and on for 4-6 weeks-- not to worry and it will go away. 3. You may experience discomfort in the rectum or base of your penis. This is normal and should be of no concern. In addition, you may have a small amount of blood in your stool when you have a bowelmovement, and you may notice blood on your toilet paper. 4. You may also notice blood or discoloration in your semen if you are sexually active. This is also normal and may last for 4-6 months until the blood is cleared out of your prostate. 5. Limit your activity, particularly strenuous ones, for 24-48 hours. 6. Resume your home medications unless told otherwise. Hold aspirin, ibuprofen, naprosyn like medications for 7 days. You can resume Eliquis in 5 days. IT IS IMPORTANT THAT YOU CONTACT US SOON POSSIBLE if any of the following symptoms occur: Burning with urination Chills Fever Large Blood clots or excess of blood in the urine or stool Difficulty or inability to urinate If problems do occur as listed above during the week from 9:00 am to 4:00 pm, call our office at the number(s) listed above. Explain the problem or symptoms to our office staff if your doctor is not available. If necessary, they will let you speak to another physician or will try to reach your doctor. If you call after hours or on weekends, please call our exchange. Either your doctor or the [id number] will call you back. We plan to call you as soon as the results of the biopsy are available. Be patient, as the pathologist has to be certain about the interpretation of your biopsy. This may require additional opinions from other members of the Department of Pathology. We should have the results of your biopsies in 4-7 days. If you have not heard from us within 7-10 working days, please call us so that we may check on the progress of your biops SAFETY : For the next 24 hours, you may feel sleepy due to medicines used during your procedure. For the next 24 hour period or while you are on pain medication, DO NOT make any important decisions or sign any important papers. DO NOT drink any alcoholic beverages, including beer. DO NOT drive a car or operate machinery and power tools. For your safety and protection, we strongly recommend that a responsible adult be with you today and throughout the night. Medication Pain Medication given at . Next dose due at if needed. ADDITIONAL INFORMATION Once you are home, if you develop any of the following symptoms, call your physician. Difficulty in breathing, persistent nausea or vomiting, pain that is unusual, excessive swelling orredness at incision site, trouble swallowing, inability to void, temperature greater than 101 degrees, excessive bleeding at incision site. If you cannot contact your physician, call or come to the Emergency Room at [facility] ([phone]) or the nearest Emergency Room. In an emergency, Call 911. documented in this encounter Medications at Time of Discharge Medication Sig Dispensed Refills Start Date End Date ALPRAZolam (XANAX) 0.25 mg tablet Take 0.25 mg by mouth. 11/29/2021 apixaban (ELIQUIS) 5 mg tablet Take by mouth 2 times daily. rosuvastatin (CRESTOR) 10 mg tablet Take 10 mg by mouth daily. escitalopram oxalate (LEXAPRO) 5 mg tablet Take 5 mg by mouth daily. flecainide acetate (FLECAINIDE ORAL) Take 100 mg by mouth 2 times daily. HYDROcodone-acetaminoph en (NORCO) 5-325 mg tabletIndications:Prost ate cancer Take 1 Tablet by mouth every 4 hours as needed for Pain. Max Daily Amount: 6 Tablets 10 Tablet 12/21/2021 01/13/2022 documented as of this encounter H&P Notes * Galo Villareal MD - 12/21/2021 9:16 AM CDT History and Physical Patient Name: Kenji Camara 61 y.o. male Date of : 1960 CSN: [id number] Date of Admission: 12/21/2021 Reason for Admission: Prostate cancer on surveillance History of Present Illness: 61 year old male with prostate cancer on surveillance Patient Active Problem List Diagnosis Date Noted Prostate cancer 10/22/2021 Past Medical History: Diagnosis Date Atrial fibrillation Hyperlipidemia Malignant neoplasm of prostate Past Surgical History: Procedure Laterality Date HX CARPAL TUNNEL RELEASE Bilateral HX HERNIA REPAIR HX SHOULDER SURGERY Right Current Facility-Administered Medications: clindamycin (CLEOCIN) 900 mg in dextrose 5% 50 mL IVPB, 900 mg, IV, pre-proc one time AND gentamicin in saline (iso-osm) (GARAMYCIN) 100 mg/100 mL traditional dose IVPB 100 mg, 100 mg, IV, pre-proc one time, Galo Villareal MD lactated ringers infusion, , IV, continuous, Valdo Cartagena MD, Last Rate: 125 mL/hr at , New Bag at 12/21/21 0838 No Known Allergies Social History Tobacco Use Smoking status: Never Smokeless tobacco: Never Substance Use Topics Alcohol use: Not Currently Review of Systems Cardiovascular: negative. Constitutional: negative. Ears, nose, mouth, throat, and face: negative. Gastrointestinal: negative. Respiratory: negative. Objective: Physical Exam: General: Well developed, well-nourished, no acute distress. Neck: Supple, no adenopathy Lungs: Clear, good excursion. Heart: Regular rate and rhythm, no overt murmurs. Abdomen: Non-distended, non-tender, no masses. Neuro: Awake, alert, oriented. No focal motor or sensory deficits. Assessment: Prostate cancer on surveillance Plan: We will proceed with a prostate ultrasound and saturation prostate biopsies. I discussed the procedure as well as risks, benefits and options. Risks include but are not limited to bleeding, infection, failure to make a diagnosis, need for other interventional procedures secondary to complications. We also discussed the general risks of heart attack, stroke, DVT, PE and . He understands and wishes to proceed. An information sheet and instructions had been given to the patient and discussed.All questions were answered. Galo Villareal MD documented in this encounter OR Notes * Operative Report - Galo Villareal MD - 12/21/2021 9:52 AM CDT Patient Name: Kenji Camara CSN: [id number] Date of Procedure: 12/21/2021 Preoperative diagnosis: Prostate Cancer on Surveillance Postoperative diagnoses: Same Procedure: Prostate ultrasound and ultrasound guided prostate needle biopsies Surgeon: Galo Villareal MD Anesthesia: Local Estimated Blood Loss: minimal History and indications: Kenji Camara 61 y.o. male with prostate cancer on surveillance. We had an extensive discussion as regards his treatment options. All questions were answered. He wished to proceed with the aboveprocedure. The patient underwent a preoperative preparation consisting of antibiotics and Fleet enema. Procedure #1 -- Prostate ultrasound: CPT: 59631 - Transrectal ultrasound of the prostate He was then placed in the left lateral decubitus position and prepped in sterile manner. The 8 MHz transrectal ultrasound probe was lubricated and inserted into the rectum without difficulty. The prostate was examined in the transverse and sagittal planes. The findings were as follows: Prostate volume -- 31 mL Echogenicity -- homogeneous Focal calcifications -- None Suspicious lesions -- None Seminal vesicles -- unremarkable Cysts -- None Documentation image(s) taken -- Yes Procedure #2 -- Ultrasonic guided prostate biopsies: CPT: 11264 Ultrasound guidance for biopsy CPT: 63996 Prostate needle biopsies Using ultrasound guidance, Prostate biopsies were obtained in the following areas of the prostate: Right lateral base Two cores Right base Two cores Right lateral mid Two cores Right mid Two cores Right lateral apex Two cores Right apex Two cores Left lateral base Two cores Left base Two cores Left lateral mid Two cores Left mid Two cores Left lateral apex Two cores Left apex Two cores They were sent in 12 separate vials to pathology. Total cores 24. Pressure was held for several minutes at the end of the case to prevent bleeding. Galo Villareal MD * Ghislaine-OP - Cassia Herring RN - 12/18/2021 9:27 AM CDT Called patient regarding DOS 12/21/2021. Patient states DOS 11/16/2021 was postponed until 12/21/2021. Patient states he stopped his Eliquis for preparation for DOS 11/16/2021 and he felt he went into A-fib. Restarted the Eliquis, was seen by his spray stainer, Dr Cordon. States now in SR, had a EKG on 11/16/2021 showing SR. States he stopped the Eliquis today, 12/18/2021 for preparation for DOS 12/21/2021. States no further changes in his medical history. Reviewed pre procedural instructions, verbalized understanding. documented in this encounter Miscellaneous Notes * Care Plan - Oumou Truong RN - 12/21/2021 10:01 AM CDT Knowledge deficit related to post-discharge care Interventions: Assess learning needs and willingness to learn; give clear, concise explanations of the care required post-discharge; address patient/family questions and concerns; provide teaching asindicated Expected Outcome: Patient and/or family/significant other demonstrate(s) behaviors required for performance of activities enhancing recovery post-discharge Outcome Met: Phase II plan of care and discharge instructions have been reviewed. Patient and family member agree and verbalize their understanding. * Care Plan - Cassia Sesay RN - 12/21/2021 8:14 AM CDT Potential for anxiety related to surgical intervention Interventions: convey caring/supportive attitude; offer emotional support as needed; provide comfort measures (warm blanket, pillow, quiet environment); allow patient opportunity to verbalize concerns/fears/questions; explore coping behaviors; allow age-specific/special needs family support Expected Outcome: Patient will demonstrate decreased anxiety or adaptive coping strategies Outcome Met: All concerns addressed documented in this encounter Plan of Treatment Not on file documented as of this encounter Procedures Procedure Name Priority Date/Time Associated Diagnosis Comments PATHOLOGY Pathology 12/21/2021 9:21 AM CDT Prostate cancer VT PROSTATE NEEDLE BIOPSY ANY APPROACH 12/21/2021 9:10 AM CDT Prostate cancer documented in this encounter Results * PATHOLOGY (12/21/2021 9:21 AM CDT) CASE REPORT Surgical Pathology Report ? Case: [id number] ? Authorizing Provider: ??Galo Villareal MD ?Collected: ? 12/21/2021 09:21 AM ? Ordering Location: ? [facility] ?? Received: ?12/21/2021 10:09 AM ? [facility] [place] ? Pathologist: ? Siomara, MD Alexander ? Specimens: ?? A) - Prostate, left lateral base ? B) - Prostate, left base ? C) - Prostate, right base ? D) - Prostate, right lateral base ? E) - Prostate, left lateral medium ? F) - Prostate, left medium ? G) - Prostate, right medium ? H) - Prostate, right lateral medium ? I) - Prostate, left lateral apex ? J) - Prostate, left apex ? K) - Prostate, right apex ? L) - Prostate, right lateral apex ? 2 11:55 AM [facility] [employer] [facility] FINAL DIAGNOSIS Left lateral base of prostate, core biopsy: -Benign prostate tissue. Left base of prostate, core biopsy: -Benign prostate tissue. Right base of prostate, core biopsy: -Benign prostate tissue. Right lateral base of prostate, core biopsy: -Benign prostate tissue. Left lateral medium prostate, core biopsy: -Benign prostate tissue. Left medium prostate, core biopsy: -Benign prostate tissue. Right medium prostate, core biopsy: -Benign prostate tissue. Right lateral medium prostate, core biopsy: -Benign prostate tissue. Left lateral apex of prostate, core biopsy: -Benign prostate tissue. Left apex of prostate, core biopsy: -Benign prostate tissue. Right apex of prostate, core biopsy: -Benign prostate tissue. Right lateral apex of prostate, core biopsy: -Benign prostate tissue. 2 11:55 AM [facility] [employer] [facility] S DESCRIPTION The specimen is labeled Kenji Camara and consists of a Ju[employer]ino dish with individual cells that are separately labeled as to site and with contents of white filamentous thread-like tissue cores, each 0.1 cm in diameter, as follows: 1. Site: Left lateral base, Number of core(s): 2; Length of core(s): 2.1 and 2.2 cm; which are submitted labeled A1. 2. Site: Left base , Number of core(s): 2; Length of core(s): 1.5 and 1.7 cm; which are submitted labeled B1. 3. Site: Right base, Number of core(s): 2; Length of core(s): 1.6 and 1.7 cm; which are submitted labeled C1. 4. Site: Right lateral base, Number of core(s): 2; Length of core(s): 1.5 and 1.7 cm; which are submitted labeled D1. 5. Site: Left lateral medium, Number of core(s): 3; Length of core(s): 0.4, 1.6, 1.9 cm; which are submitted labeled E1. 6. Site: Left medium, Number of core(s): 2; Length of core(s): 2.1 and 2.2 cm; which are submitted labeled F1. 7. Site: Right medium, Number of core(s): 2; Length of core(s): 1.7, 1.8 cm; which are submitted labeled G1. 8. Site: Right lateral medium, Number of core(s): 2; Length of core(s): 1.5 and 1.7 cm; which are submitted labeled H1. 9. Site: Left lateral apex, Number of core(s): 2; Length of core(s): 1.6, 2.0 cm; which are submitted labeled I1. 10. Site: Left apex, Number of core(s): 2; Length of core(s): 1.1 and 1.2 cm; which are submitted labeled J1. 11. Site: Right apex, Number of core(s): 2; Length of core(s): 2 and 2.1 cm; which are submitted labeled K1. 12. Site: Right lateral apex, Number of core(s): 2; Length of core(s): 1.5 and 2 cm; which are submitted labeled L1. CLIFF 2 11:55 AM [facility] MICROSCOPIC DESCRIPTION The slides are labeled [id number] and Kenji Camara. Microscopic examination substantiates the above cited diagnosis. 2 11:55 AM [facility] OPERATIVE PROCEDURE 1: PROSTATE TRANSRECTAL BIOPSY 2 11:55 AM CDT [facility] CLINICAL INFORMATION Prostate cancer [C61] N93-Aidktcee cancer 2 11:55 AM CDT [facility] COMMENT Special stain, immunohistochemical, and/or in situ hybridization results are interpreted with controls that demonstrate appropriate staining reactions. Note on use of immunohistochemistry reagents and in situ hybridization probes: These tests were developed and their performance characteristics determined by [facility], Department of Laboratory Medicine. It has not been cleared or approved by the U.S. Food and Drug Administration. The FDA has determined that such clearance or approval is not necessary. The test is used for clinical purposes. It should not be regarded as investigational or for research. This laboratory is certified to perform high complexity testing. Frozen section/operating room consultation, gross examination and dissection, and case sign out may have been performed in part or completely in the following laboratories: [facility], CLIA #[id number] [address] [place] [address] [facility], CLIA #[id number] [address] [place] [address] [facility], CLIA #[id number] [address] [place] [address] This report was created with the [employer] voice-activated dictation system. Inherent to this system is the possibility of syntax, grammar, punctuation and other errors that could impact the interpretation of the report. If there are interpretative questions about aspects of this report, please contact the performing pathologist. 2 11:55 AM CDT [facility] Tissue ENTIRE PROSTATE / Unknown Collection / Unknown 12/21/2021 9:21 AM CDT 12/21/2021 10:09 AM CDT Tissue specimen (specimen) ENTIRE PROSTATE / Unknown 12/21/2021 9:21 AM CDT 12/21/2021 10:09 AM CDT Tissue specimen (specimen) ENTIRE PROSTATE / Unknown 12/21/2021 9:21 AM CDT 12/21/2021 10:09 AM CDT Tissue specimen (specimen) ENTIRE PROSTATE / Unknown 12/21/2021 9:21 AM CDT 12/21/2021 10:09 AM CDT Tissue specimen (specimen) ENTIRE PROSTATE / Unknown 12/21/2021 9:21 AM CDT 12/21/2021 10:09 AM CDT Tissue specimen (specimen) ENTIRE PROSTATE / Unknown 12/21/2021 9:21 AM CDT 12/21/2021 10:09 AM CDT Tissue specimen (specimen) ENTIRE PROSTATE / Unknown 12/21/2021 9:21 AM CDT 12/21/2021 10:09 AM CDT Tissue specimen (specimen) ENTIRE PROSTATE / Unknown 12/21/2021 9:21 AM CDT 12/21/2021 10:09 AM CDT Tissue specimen (specimen) ENTIRE PROSTATE / Unknown 12/21/2021 9:21 AM CDT 12/21/2021 10:09 AM CDT Tissue specimen (specimen) ENTIRE PROSTATE / Unknown 12/21/2021 9:21 AM CDT 12/21/2021 10:09 AM CDT Tissue specimen (specimen) ENTIRE PROSTATE / Unknown 12/21/2021 9:21 AM CDT 12/21/2021 10:09 AM CDT Tissue specimen (specimen) ENTIRE PROSTATE / Unknown 12/21/2021 9:21 AM CDT 12/21/2021 10:09 AM CDT Galo Villareal MD PATHOLOGY/CYTOLOGY O RDERABLES Performing Organization Address City/State/[facility] Co de Phone Number [facility]# [id number] [address] [place] [address] documented in this encounter Visit Diagnoses Diagnosis Prostate cancer Malignant neoplasm of prostate Prostate cancer Malignant neoplasm of prostate documented in this encounter Administered Medications Inactive Administered Medications - up to 3 most recent administrations Medication Order MAR Action Action Date Dose Rate Site HYDROcodone-acetaminophen (NORCO) 5-325 mg per tablet 1 Tablet 1 Tablet, Oral, EVERY 4 HOURS PRN, Starting on Fri12/21/21 at 0953, Until Fri12/21/21 at 1351, Pain (See admin instructions), Routine, Post-op Phase II Given 12/21/2021 10:28 AM CDT 1 Tablet lactated ringers infusion IV, at 125 mL/hr, CONTINUOUS, Starting on Fri12/21/21 at 0845, Until Fri12/21/21 at 1351, Routine Restarted 12/21/2021 9:32 AM CDT Continue from Pre-Op 12/21/2021 9:28 AM CDT 125 mL/hr New Bag 12/21/2021 8:38 AM CDT 125 mL/hr naloxone (NARCAN) 0.4 mg/mL injection 0.1 mg 0.1 mg, IV, SEE ADMIN INSTRUCTIONS, Starting on Fri12/21/21 at 0953, Until Fri12/21/21 at 1351, Routine, Post-op Phase II sodium chloride 0.9 % irrigation solution INTRA-PROCEDURE PRN, Starting on Fri12/21/21 at 0939, Until Fri12/21/21 at 0950, Routine, Intra-op Given 12/21/2021 9:39 AM CDT 1,000 mL Opera tive Site documented in this encounter Active and Recently Administered Medications Times are shown in CDT. Scheduled Medication Order 12/19/2021 12/20/2021 12/21/2021 clindamycin (CLEOCIN) 900 mg in dextrose 5% 50 mL IVPB (COMPLETED)(Linked Group 1) 900 mg, IV, PRE-PROCEDURE ONCE, 1 dose, Starting on Fri12/21/21 at 0814, Until Fri12/21/21 at 1002, Routine, Pre-op, Antibiotic Indication: Surgical prophylaxis 0932 (Given - Provid er: ASIA Agrawal)1002 (Stopped - Provider: ASIA Agrawal) gentamicin in saline (iso-osm) (GARAMYCIN) 100 mg/100 mL traditional dose IVPB 100 mg (COMPLETED)(Linked Group 1) 100 mg, IV, PRE-PROCEDURE ONCE, 1 dose, Starting on Fri12/21/21 at 0814, Until Fri12/21/21 at 1002, Routine, Pre-op, Antibiotic Indication: Surgical prophylaxis 0932 (Given - Provid er: ASIA Agrawal)1002 (Stopped - Provider: ASIA Agrawal) naloxone (NARCAN) 0.4 mg/mL injection 0.1 mg 0.1 mg, IV, SEE ADMIN INSTRUCTIONS, Starting on Fri12/21/21 at 0953, Until Fri12/21/21 at 1351, Routine, Post-op Phase II Continuous Medication Order 12/19/2021 12/20/202112/2112/21/2021 lactated ringers infusion IV, at 125 mL/hr, CONTINUOUS, Starting on Fri12/21/21 at 0845, Until Fri12/21/21 at 1351, Routine 0838 (New Bag - Prov ider: Cassia Sesay RN)0928 (Continue from Pre-Op - Provider: ASIA Agrawal)0931 (Paused - Provider: ASIA Agrawal - Comment: Switch to gravity)0932 (Restarted - Provider: ASIA Agrawal)0940 (Fluid Volume - Provider: ASIA Agrawal) PRN Medication Order 12/19/2021 12/20/2021 12/21/2021 HYDROcodone-acetaminophen (NORCO) 5-325 mg per tablet 1 Tablet 1 Tablet, Oral, EVERY 4 HOURS PRN, Starting on Fri12/21/21 at 0953, Until Fri12/21/21 at 1351, Pain (See admin instructions), Routine, Post-op Phase II 1028 (Given - Provid er: Oumou Truong RN) sodium chloride 0.9 % irrigation solution (CANCELED) INTRA-PROCEDURE PRN, Starting on Fri12/21/21 at 0939, Until Fri12/21/21 at 0950, Routine, Intra-op 0939 (Given - Provid er: Galo Villareal MD) Linked Groups Order Group 1: clindamycin (CLEOCIN) 900 mg in dextrose 5% 50 mL IVPB (COMPLETED)Jump to med 900 mg, IV, PRE-PROCEDURE ONCE, 1 dose, Starting on Fri12/21/21 at 0814, Until Fri12/21/21 at 1002, Routine, Pre-op, Antibiotic Indication: Surgical prophylaxis And gentamicin in saline (iso-osm) (GARAMYCIN) 100 mg/100 mL traditional dose IVPB 100 mg (COMPLETED)Jump to med 100 mg, IV, PRE-PROCEDURE ONCE, 1 dose, Starting on Fri12/21/21 at 0814, Until Fri12/21/21 at 1002, Routine, Pre-op, Antibiotic Indication: Surgical prophylaxis documented in this encounter
--- OUTSIDE RECORDS SUMMARY | 2024-03-07 22:01 | XMS_ITS | Encounter Summary ---
Author Organization [facility] Address [address] [place] [address] Care Team Providers Care General Merchandise Manager Name Role Phone Unavailable Primary Care Provider Unavailabl e Encounter Details Date Type Department Care Team ([facility] st Contact Info) Description 12/09/2023 External Device Data [facility] ABSTRACTION Provider, Abstract [...]
--- OUTSIDE RECORDS SUMMARY | 2024-03-07 22:01 | XMS_ITS | Encounter Summary ---
Author Organization [facility] Address [address] [place] [address] Care Team Providers Care Bag Sorter Name Role Phone Unavailable Primary Care Provider Unavailabl e Encounter Details Date Type Department Care Team (Late st Contact Info) Description 08/14/2022 Orders Only [facility] Urology at the [facility] [address] [place] [phone] Galo Villareal MD [address] [place] [address] Prostate cancer (Primary Dx) Social History Tobacco Use Types Packs/Day Years Used Date Smoking Tobacco: Never Smokeless Tobacco: Never Alcohol Use Standard Drinks/Week Comments Not Currently 0 (1 standard drink = 0.6 oz pur e alcohol) Sex and Gender Information Value Date Recorded Sex Assigned at Not on file Gender Identity Not on file Sexual Orientation Not on file documented as of this encounter Progress Notes * Naa Ramirez RMA - 08/14/2022 12:43 PM CDT Orders placed documented in this encounter Plan of Treatment Not on file documented as of this encounter Procedures Procedure Name Priority Date/Time Associated Diagnosis Comments PSA Routine 08/14/2022 2:19 PM CDT Prostate cancer documented in this encounter Results * (ABNORMAL) PSA (08/14/2022 2:19 PM CDT) PSA 6.06(H) < OR = 4.00 ng/mL [facility] Comment: The total PSA value from this assay system is standardized against the WHO standard. The test result will be approximately 20% lower when compared to the equimolar-standardized total PSA ([place] [place]). Comparison of serial PSA results should be interpreted with this fact in mind. This test was performed using the Siemens chemiluminescent method. Values obtained from different assay methods cannot be used interchangeably. PSA levels, regardless of value, should not be interpreted as absolute evidence of the presence or absence of disease. FASTING:NO FASTING: NO Test Performed at: [facility] [address] [place], [place] ??[address] Rudi Kapoor MD Blood 08/14/2022 2:19 PM CDT 08/14/2022 2:20 PM CDT Galo Villareal MD CHEMISTRY ORDERABLES [facility] [phone] [facility] [address] [place] [address] documented in this encounter Visit Diagnoses Diagnosis Prostate cancer- Primary Malignant neoplasm of prostate documented in this encounter
--- OUTSIDE RECORDS SUMMARY | 2024-03-07 22:01 | XMS_ITS | Encounter Summary ---
Author Organization [facility] Address [address] [place] [address] Care Team Providers Care Rigging Helper Name Role Phone Unavailable Primary Care Provider Unavailabl e Encounter Details Date Type Department Care Team (Late st Contact Info) Description 04/29/2023 External Device Data [facility] ABSTRACTION Provider, Abstract [...]
--- OUTSIDE RECORDS SUMMARY | 2024-03-07 22:01 | XMS_ITS | Encounter Summary ---
Author Organization [facility] Address [address] [place] [address] Care Team Providers Care Programmer Business Name Role Phone Unavailable Primary Care Provider Unavailabl e Encounter Details Date Type Department Care Team (Late st Contact Info) Description 03/26/2023 External Device Data [facility] ABSTRACTION Provider, Abstract [...]
--- OUTSIDE RECORDS SUMMARY | 2024-03-07 22:01 | XMS_ITS | Encounter Summary ---
Author Organization [facility] Address [address] [place] [address] Care Team Providers Care Cracker And Cookie Machine Operator Name Role Phone Unavailable Primary Care Provider Unavailabl e Reason for Visit * Reason Comments Establish Care Prostate Cancer Encounter Details Date Type Department Care Team (Late st Contact Info) Description 10/22/2021 12:00 PM CDT Office Visit [facility] UROLOGY - [place] [address] [place] [address] Galo Villareal MD [address] [place] [address] Prostate cancer (Primary Dx); Malignant neoplasm of prostate Social History Tobacco Use Types Packs/Day Years Used Date Smoking Tobacco: Never Smokeless Tobacco: Never Tobacco Cessation:Counseling Given: Not Answered Sex and Gender Information Value Date Recorded Sex Assigned at Not on file Gender Identity Not on file Sexual Orientation Not on file COVID-19 Exposure Response Date Recorded In the last 10 days, have yo u been in contact with someone who was confirmed or suspected to have Coronavirus/COVID-19? No / Unsure 10/22/2021 11:35 AM CDT documented as of this encounter Last Filed Vital Signs Vital Sign Reading Time Taken Comments Blood Pressure - - Pulse - - Temperature - - Respiratory Rate - - Oxygen Saturation - - Inhaled Oxygen Concentration - - Weight 83.9 kg (185 lb) 10/22/2021 11:53 AM CDT Height 172.7 cm (5' 8 ) 10/22/2021 11:53 AM CDT Body Mass Index 28.13 10/22/2021 11:53 AM CDT documented in this encounter Progress Notes * Galo Villareal MD - 10/22/2021 11:57 AM CDT Clinic H&P Male Chief Complaint Patient presents with Establish Care Prostate Cancer HPI: 60 y.o.male presents to the clinic with complaints of prostate cancer. The patient had a prostate biopsy in 2017 that showed 1 core of Rayna 6 prostate cancer. His PSA decreased and is now risen back above 4. He is referred by his primary care physician for evaluation. He was lost to follow-up before then. He has no urinary complaints. No hematuria. No bone pain. He has a significant family history of prostate cancer. Medical History: Afib Surgical History: Hernia repair, left inguinal Family History: Father and brothers with prostate cancer Social History: Social History Socioeconomic History Marital status: Unknown Spouse name: Not on file Number of children: Not on file Years of education: Not on file Highest education level: Not on file Occupational History Not on file Tobacco Use Smoking status: Never Smokeless tobacco: Never Vaping Use Vaping Use: Never used Substance and Sexual Activity Alcohol use: Not on file Drug use: Not on file Sexual activity: Not on file Other Topics Concern Not on file Social History Narrative Not on file Social Determinants of Health Financial Resource Strain: Not on file Food Insecurity: Not on file Transportation Needs: Not on file Physical Activity: Not on file Stress: Not on file Social Connections: Not on file Intimate Partner Violence: Not on file Housing Stability: Not on file Current medications: No current outpatient medications on file prior to visit. No current facility-administered medications on file prior to visit. Allergies: No Known Allergies Review of systems: Constitutional: No weight changes, No fevers or chills HENT: No headaches, No ringing in ears, no stuffiness, No dry mouth Eyes: No glasses, no blurred vision Respiratory: No cough, No painful breathing, No wheezing Cardiovascular: No swelling, No chest pain Gastrointestinal: No abdominal pain, No diarrhea, No changes in appetite Genitourinary: See HPI Skin: No rashes, No pruritis Neurological: No numbness, No dizziness Endo: No heat or cold intolerance, No appetite changes Heme: No easy bleeding or bruising Psychiatric/Behavioral: No depression, no anxiety Physical Exam: Vitals: Vitals: 10/22/21 1153 Weight: 83.9 kg (185 lb) Height: 5' 8 (1.727 m) Last documented weight: Weight: 83.9 kg (185 lb) (10/22/21 1153) General Appearance: - Well nourished - No acute distress Eyes: - No scleral icterus Neck: - No masses, symmetrical Cardiac: - No lower extremity edema Skin: - Inspection: No rashes evident Respiratory: - Unlabored breathing Lymphatic: - Palpation (inguinal): No palpable lymph nodes - Palpation (neck): No palpable lymph nodes Abdominal: - Non-tender, no masses - No hernias - No HSM identified - Stool sample: Not indicated Musculoskeletal: - Normal gait Neuro: - Alert and Oriented x 3 - Normal Affect : - Anus/Perineum: No lesions - Scrotum: No rashes or lesions - Epididymis: Normal size, symmetry - Testes: No masses, Non-tender - Urethral Meatus: Normal location, No discharge - Penis: Circumcised, No lesions, scarring or deformity - RAMAN: 1+ (30gms) smooth without nodules - Seminal Vesicles: Normal, symmetric - Rectum: No masses Labs: 4.2 Assessment/Plan 1. Prostate cancer As part of the active surveillance protocol, we discussed MRI PSA and prostate biopsy. He has a high deductible insurance plan and does not wish to do an MRI at this time. We had a discussion about the pros and cons of PSA testing as well as prostate cancer screening/detection/treatment. I explained to the patient that our main focus is to try not to miss aggressive variants of prostate cancer that we believe may need to be found and possibly treated. We discussed the options of observation, checking a prostate health index/4k score/PCA3+ test , prostate MRI or proceeding with a prostate ultrasound and biopsy. We discussed the pros and cons of each-possibility ofcancer being present and progression risks with observation, over detection and overtreatment potential, failure to make a diagnosis despite using any of the above modalities. He has elected to proceed with a prostate ultrasound and biopsy. I discussed the procedure as well as risks, benefits and potential side effects. An informational/instructional pamphlet was given anddiscussed. All questions answered. I gave him a prescription for Cipro, cefuroxime and [place] for the biopsy. This note was done using Dragon dictation software. The above note may or may not have been proofread for accuracy. TOBACCO COUNSELING He is not a tobacco user. documented in this encounter Plan of Treatment Not on file documented as of this encounter Visit Diagnoses Diagnosis Prostate cancer- Primary Malignant neoplasm of prostate Malignant neoplasm of prostate documented in this encounter
--- OUTSIDE RECORDS SUMMARY | 2024-03-07 22:01 | XMS_ITS | Encounter Summary ---
Author Organization [facility] Address [address] [place] [address] Care Team Providers Care Test Engineer Name Role Phone Unavailable Primary Care Provider Unavailabl e Encounter Details Date Type Department Care Team (Late st Contact Info) Description 10/19/2004 Outpatient Historical [facility] Isaac Samaniego MD [address] [place], [place] [id number] CALCULUS OF URETER (Primary Dx) Social History Tobacco Use Types Packs/Day Years Used Date Smoking Tobacco: Never Assessed Sex and Gender Information Value Date Recorded Sex Assigned at Not on file Gender Identity Not on file Sexual Orientation Not on file documented as of this encounter Plan of Treatment Not on file documented as of this encounter Visit Diagnoses Diagnosis Calculus of ureter- Primary documented in this encounter
--- OUTSIDE RECORDS SUMMARY | 2024-03-07 22:01 | XMS_ITS | Encounter Summary ---
Author Organization [facility] Address [address] [place] [address] Care Team Providers Care Shareholder Name Role Phone Unavailable Primary Care Provider Unavailabl e Encounter Details Date Type Department Care Team (Late st Contact Info) Description 10/22/2021 Orders Only [facility] - [place] [address] [place] [address] Galo Villareal MD [address] [place], [place] [id number] Social History Tobacco Use Types Packs/Day Years Used Date Smoking Tobacco: Never Smokeless Tobacco: Never Sex and Gender Information Value Date Recorded Sex Assigned at Not on file Gender Identity Not on file Sexual Orientation Not on file COVID-19 Exposure Response Date Recorded In the last 10 days, have yo u been in contact with someone who was confirmed or suspected to have Coronavirus/COVID-19? No / Unsure 10/22/2021 11:35 AM CDT documented as of this encounter Plan of Treatment Not on file documented as of this encounter Visit Diagnoses Not on filedocumented in this encounter
--- OUTSIDE RECORDS SUMMARY | 2024-03-07 22:01 | XMS_ITS | Encounter Summary ---
Author Organization [facility] Address [address] Esparza: [place] [address] Care Team Providers Care Production Department Supervisor Name Role Phone Unavailable Primary Care Provider Unavailabl e Encounter Details Date Type Department Care Team (Late st Contact Info) Description 04/23/2005 Outpatient Historical ChehvIsaac rojas MD [address] [place], [place] [id number] Social History Tobacco Use Types Packs/Day Years [...]
--- OUTSIDE RECORDS SUMMARY | 2024-03-07 22:01 | XMS_ITS | Encounter Summary ---
Author Organization [facility] Address [address] [place] [address] Care Team Providers Care Employment Representative Name Role Phone Unavailable Primary Care Provider Unavailabl e Encounter Details Date Type Department Care Team (Latest Contact Info) Description 10/26/2021 3:12 PM CDT - 10/26/2021 11:59 PM CDT Hospital Encounter [facility] [address] [address] [place] [id number] Discharge Disposition: Home or Self Care Social [...] suspected to have Coronavirus/COVID-19? No / Unsure 10/26/2021 3:19 PM CDT documented as of this encounter Medications at Time of Discharge Medication Sig Dispensed Refills Start Date End Date flecainide acetate (FLECAINIDE ORAL) Take 100 mg by mouth 2 times daily. HYDROcodone-acetaminoph en (NORCO) 5-325 mg tabletIndications:Prost ate cancer Take 1 Tablet by mouth every 4 hours as needed for Pain. Max Daily Amount: 6 Tablets 10 Tablet 12/21/2021 01/13/2022 documented as of this encounter Plan of Treatment Not on file documented as of this encounter Visit Diagnoses Not on filedocumented in this encounter
--- OUTSIDE RECORDS SUMMARY | 2024-03-07 22:01 | XMS_ITS | Encounter Summary ---
Author Organization [facility] Address [address] [place] [address] Care Team Providers Care Photography Assistant Name Role Phone Unavailable Primary Care Provider Unavailabl e Encounter Details Date Type Department Care Team (Late st Contact Info) Description 11/25/2023 External Device Data [facility] ABSTRACTION Provider, Abstract [...]
--- OUTSIDE RECORDS SUMMARY | 2024-03-07 22:01 | XMS_ITS | Encounter Summary ---
Author Organization [facility] Address [address] Esparza: Epic Prelude [place]T [place] [address] Care Team Providers Care Hand Clipper Name Role Phone Unavailable Primary Care Provider Unavailabl e Encounter Details Date Type Department Care Team (Latest Contact Info) Description 10/22/2021 Travel Social History Tobacco Use Types Packs/Day [...]
--- OUTSIDE RECORDS SUMMARY | 2024-03-07 22:01 | XMS_ITS | Encounter Summary ---
Author Organization [facility] Address [address] [place] [address] Care Team Providers Care Shut Off Worker Name Role Phone Unavailable Primary Care Provider Unavailabl e Reason for Visit * Reason Onset Date Comments other 11/26/2021 Encounter Details Date Type Department Care Team (Late st Contact Info) Description 11/26/2021 Telephone [facility] - [place] [address] [place] [address] Galo Villareal MD [address] [facility] [address] [place] [address] other Social History Tobacco Use Types Packs/Day Years [...] suspected to have Coronavirus/COVID-19? No / Unsure 11/08/2021 2:41 PM CDT documented as of this encounter Miscellaneous Notes * Telephone Encounter - Marsha Hartman - 2021 9:11 AM CDT Spoke with pt, procedure rescheduled * Telephone Encounter - Naa Ramirez RMA - 11/26/2021 1:41 PM CDT Pt called he is ready to be rescheduled for his prostate biopsy in the OR documented in this encounter Plan of Treatment Not on file documented as of this encounter Visit Diagnoses Not on filedocumented in this encounter
--- OUTSIDE RECORDS SUMMARY | 2024-03-07 22:01 | XMS_ITS | Encounter Summary ---
Author Organization [facility] Address [address] [place] [address] Care Team Providers Care Lawn Mower Name Role Phone Unavailable Primary Care Provider Unavailabl e Encounter Details Date Type Department Care Team ([facility] st Contact Info) Description 02/05/2023 External Device Data [facility] ABSTRACTION Provider, Abstract [...]
--- OUTSIDE RECORDS SUMMARY | 2024-03-07 22:01 | XMS_ITS | Encounter Summary ---
Author Organization [facility] Address [address] [place] [address] Care Team Providers Care Coordinator Mining Products Name Role Phone Unavailable Primary Care Provider Unavailabl e Reason for Visit * Reason Onset Date Comments Heart Issues 11/14/2021 Encounter Details Date Type Department Care Team (Late st Contact Info) Description 11/14/2021 Telephone [facility] - [place] [address] [facility] [facility] [address] [place] [address] Galo Villareal MD [address] [facility] [address] [place] [address] Heart Issues Social History Tobacco Use Types Packs/Day Years [...] Notes * Telephone Encounter - Marsha Hartman Julian - 11/15/2021 9:50 AM CDT Images from the original note were not included. Spoke with pt, procedure taken off the schedule for tomorrow. Pt is going to see his primer supervisor (Dr. Bandimore) tomorrow and will find out when he is able to get rescheduled/be able to stop his Eliquis 3 days prior, then call me back to reschedule Galo Villareal MD You 24 minutes ago (9:24 AM) Schedule out 8 weeks or so. Eliquis stopped 3 days prior. I am sure his primer supervisor will sort him out before then. Giles Galo Chavez MD 51 minutes ago (8:58 AM) JS How far out do I need to reschedule? Will he need to stop his Eliquis prior? Will he be able to? How many days should he stop prior? Galo Villareal MD You 16 hours ago (4:54 PM) His atrial fibrillation acted up and he went back on his Eliquis. We will have to cancel him for his prostate biopsy on Friday. Can you reschedule him several weeks down the road. Thanks. * Telephone Encounter - Galo Villareal MD - 11/14/2021 4:52 PM CDT Spoke with patient. He will sort his heart issues out and we will reschedule his prostate biopsy for his surveillance of his cancer several weeks down the road. * Telephone Encounter - Naa Ramirez RMA - 11/14/2021 8:14 AM CDT Pt called he is scheduled for a Biopsy Friday, he came off his Eliquis and is now in A-Fib, he put a call in to his Dr but wanted to let you know he was going to restart Eliquis and wait to speak to his physician, so he may be cancelling the procedure, please call documented in this encounter Plan of Treatment Not on file documented as of this encounter Visit Diagnoses Not on filedocumented in this encounter
--- OUTSIDE RECORDS SUMMARY | 2024-03-07 22:01 | XMS_ITS | Continuity of Care Document ---
Author Organization [facility] Address [address] [place] [address] Phone Care Team Providers Care Gastroenterologist Name Role Phone Eder Fernandez MD Unavailable Unavailable Allergies, Adverse Reactions, Alerts Substance Reaction Status Criticality NSAIDS (Non-Steroidal Anti-I nflammatory Drug) causes bleeding(severe) Active No Information azithromycin upset stomach(mild) Active No Infor mation Medications Medication Instructions Dosage Effective Dates (start - stop) Status Comments Flomax 0.4 mg capsule take 1 capsule by oral route every day 1/2 hour following the same meal each day 0.4 MG - Active Results Test Name Date and Time Measure Units Reference Range Abnormal Flag Status Comments Panel Description: PSA, TOTAL Final PSA, TOTAL 04:51:00 3.5 ng/mL < OR = 4.0 N Final The total PSA value from this assay system is standardized against the WHO standard. The test result will be approximately 20% lower when compared to the equimolar-standardiz ed total PSA (Albert Orlando). Comparison of serial PSA results should be interpreted with this fact in mind. This test was performed using the Siemens chemiluminescent method. Values obtained from different assay methods cannot be usedinterchangeably. PSA levels, regardless ofvalue, should not be interpreted as absoluteevidence of the presence or absence of disease.Test performed at [facility] [id number] [place] [id number]: CJ ANTONY DO,MPH Advance Directives Directive Yes / No Effective Date File Name No Information Encounters Encounter Description Practice Location Reason(s) For Visit Diagnoses Date Provider Providers Copied on Encounter [employer], [address], [place], [place], [id number], tel:[phone] [facility] Prostate cancer Oct-0 - 8 [facility]. [address] [address], [address], [place], [address], . tel: [phone] [facility], [address], [place], [place], [id number], tel:[phone] [facility] Malignant neoplasm of prostate 0 6-201 8 [facility]. [address] [address], [address], [place], [address], [place]. tel: [phone] [facility], [address], [place], [place], [id number], tel:[phone] [facility]atur[facility], unspecified typeCA of prostate 8 [facility]. [address] [address], [address], [place], [address], . tel: [phone] Referring Provider: Elias Mayorga, [address] [place] [address] [address], [place], [place], [facility]. tel:[phone] [facility], [address], [place], [place], [address], tel:[phone] Urology [facility] Calculus of kidney 2- 8 Mani [facility]andrat[facility]. [address] [place] [address], [address], [place], [place], [id number] , [place]. tel: [phone] [facility], [address], [place], [place], [address], [place] tel:[phone] [facility] CA of prostate 8- 7 [facility]. [address] [address] Camacho, [facility] [address], [place], [address], [place]. tel: [phone] Referring Provider: Elias Mayorga, [address] [place] [address] [address], [place], [place], [facility]. tel:[phone] [facility], [address], [place], [place], [address], tel:[phone] [facility] CA of prostateElevated PSA Dec-0 7-201 7 [facility]. [address] [address]acho, [address], [place], [place], [facility], . tel: [phone] [facility], [address], [place], [place], [address], tel:[phone] Urology [place] Malignant neoplasm of prostate 7 [facility]. [address] [address], [address], [place], [place], [facility], . tel: [phone] [facility], [address], [place], [place], [address], tel:[phone] [facility]rology [place] Primary prostate cancer identified by needle biopsy (T1c) 7 [facility]. [address] [address], [address], [place], [place], [facility], . tel: [phone] Referring Provider: Elias Mayorga, [address] [place] [address], [facility]. tel:[phone] [facility], [address], [place], [place], [address], tel:[phone] [facility] [place] Elevated PSA 7 [facility]. [address] [address]acho, [address], [place], [place], [facility], . tel: [phone] Referring Provider: Elias Mayorga, [address] [place] [address], [facility]. tel:[phone] [facility] [address], [place], [place], [address], tel:[phone] [facility] Elevated PSA 7 [facility]. [address] [address]acho, [address], [place], [place], [facility], . tel: [phone] Referring Provider: Elias Mayorga, [address] [place] [address], [place], [facility]. tel:[phone] Family History Family Member Type Diagnosis Age At Onset No Information Payers Payer name Insurance type Covered alliance party ID Authoriza titroy(s) [id number] Social History Type Description Quantity Date Captured Comments Sex Male Smoking Status No Information Chief Complaint And Reason For Visit No Information Reason For Referral Reason For Referral No Information Plan Of Treatment Date Type Action Status Future Order: Lab Order PSA ([id number]), S ent on: Sent Future Order: Lab Order Tissue P athology ([id number]), Collected on: , Sent on: Sent History Of Present Illness Encounter Date Complaint History Of Prese nt Illness No Information Functional Status Date Functional Assessmen t No Information Instructions Date Instruction Additional Infor mation No Information Assessments Type Assessment Date No Information Patient Care Teams Name Effective Dates (start - stop) Status Members No Information
--- OUTSIDE RECORDS SUMMARY | 2024-03-07 22:01 | XMS_ITS | Encounter Summary ---
Author Organization [facility] Address [address] [place] [address] Care Team Providers Care Sign Erector And Repairer Name Role Phone Unavailable Primary Care Provider Unavailabl e Reason for Visit * Reason Comments Follow Up Encounter Details Date Type Department Care Team ([facility] st Contact Info) Description 08/15/2022 9:20 AM CDT Office Visit [facility] [address] [place] [address] Galo Villareal MD [address] [facility] [address] [place], [place] [id number] Prostate cancer (Primary Dx) Social History Tobacco Use Types Packs/Day Years Used Date Smoking Tobacco: Never Smokeless Tobacco: Never Tobacco Cessation:Counseling Given: Not Answered Alcohol Use Standard Drinks/Week Comments Not Currently 0 (1 standard drink = 0.6 oz pur e alcohol) Sex and Gender Information Value Date Recorded Sex Assigned at Not on file Gender Identity Not on file Sexual Orientation Not on file documented as of this encounter Last Filed Vital Signs Vital Sign Reading Time Taken Comments Blood Pressure 128/76 08/15/2022 9:25 AM CDT Pulse - - Temperature - - Respiratory Rate - - Oxygen Saturation - - Inhaled Oxygen Concentration - - Weight 83.9 kg (185 lb) 08/15/2022 9:25 AM CDT Height 172.7 cm (5' 8 ) 08/15/2022 9:25 AM CDT Body Mass Index 28.13 08/15/2022 9:25 AM CDT documented in this encounter Progress Notes * Galo Villareal MD - 08/15/2022 9:41 AM CDT Follow up note Male Chief Complaint Patient presents with Follow Up HPI/Interval History: 61 y.o.male returns to the clinic for follow up of his prostate cancer on surveillance. His PSA did fluctuate up from his previous values to 6. He had a repeat biopsy 3 months ago that showed no obvious worsening of his cancer. Medical/Surgical/Social History/Family History: Reviewed. Significant changes: no Allergies: No Known Allergies Review of systems: Constitutional: No weight changes, No fevers or chills Gastrointestinal: No abdominal pain, No diarrhea, No changes in appetite Genitourinary: See HPI Physical Exam: Vitals: Vitals: 08/15/22924 BP: 128/76 Weight: 83.9 kg (185 lb) Height: 5' 8 (1.727 m) Last documented weight: Weight: 83.9 kg (185 lb) (08/15/22924) General Appearance: - Well nourished - No acute distress Skin: - Inspection: No rashes evident Respiratory: - Unlabored breathing Abdominal: - Non-tender, no masses Labs: Labs reviewed by attending provider. Selective labs copy below. Lab Results Component Value Date/Time CREAT 0.83 01/13/2022 12:08 PM WBC 5.0 01/13/2022 01:27 PM HGB 15.3 01/13/2022 01:27 PM PSA 6.06 (H) 08/14/2022 02:19 PM Assessment/Plan 1. Prostate cancer We discussed that a PSA fluctuation. We discussed active surveillance in detail including the risk.He was to continue surveillance. We will do a PSA at 3 months I will see him back in 6 months with PSA. This note was done using [employer] dictation software. The above note may or may not have been proofread for accuracy. documented in this encounter Plan of Treatment Not on file documented as of this encounter Visit Diagnoses Diagnosis Prostate cancer- Primary Malignant neoplasm of prostate documented in this encounter
--- OUTSIDE RECORDS SUMMARY | 2024-03-07 22:01 | XMS_ITS | Encounter Summary ---
Author Organization [facility] Address [address] Esparza: Epic Prelude ADT LAKEISHA GRIFFIN [address] Care Team Providers Care Teletypewriter Operator Name Role Phone Unavailable Primary Care Provider Unavailabl e Encounter Details Date Type Department Care Team (Latest Contact Info) Description 01/13/2022 Travel Social History Tobacco Use Types Packs/Day [...] suspected to have Coronavirus/COVID-19? No / Unsure 01/13/2022 11:41 AM SHANK STITCHER documented as of this encounter Plan of Treatment Not on file documented as of this encounter Visit Diagnoses Not on filedocumented in this encounter
--- OUTSIDE RECORDS SUMMARY | 2024-03-07 22:01 | XMS_ITS | Encounter Summary ---
Author Organization [facility] Address [address] [place] [address] Care Team Providers Care Dressage Judge Name Role Phone Unavailable Primary Care Provider Unavailabl e Encounter Details Date Type Department Care Team (Late st Contact Info) Description 10/16/2004 Outpatient [address] [facility] [address] [address] LUCIA Samaniego, Isaac Castellanos MD [address] [place], [place] [id number] Social History Tobacco Use Types Packs/Day Years [...]
--- OUTSIDE RECORDS SUMMARY | 2024-03-07 22:01 | XMS_ITS | Encounter Summary ---
Author Organization [facility] Address [address] [place] [address] Care Team Providers Care Retread Mold Operator Name Role Phone Unavailable Primary Care Provider Unavailabl e Reason for Visit * Auth/Cert Specialty Diagnoses / Procedures Referred By Rosa t Referred To Contact Diagnoses Prostate cancer Prostate cancer [C61] Procedures AL BIOPSY OF PROSTATE,NEEDLE/PUNCH Galo Villareal MD [address] [address] Referral ID Status Reason Start Date Expiration Date Visits Re quested Visits Authorized [id number] 10/26/2021 1 1 Encounter Details Date Type Department Care Team (Late st Contact Info) Description 12/21/2021 9:28 AM CDT Anesthesia Event [facility] Operating Room [address] [place] [address] Angelito Robles MD [address] [place] [address] Isaac Schilling AA-C [address] [place] [address] Anesthesia Record Procedure Summary Procedure Name Responsible Anesthesiologist Anesthesia Start Time Anesthesia Stop Time PROSTATE TRANSRECTAL BIOPSY (Prostate) Angelito Robles MD 12/21/2192712/21/21952 Events Date Time Event Comment 12/21/2021920 AN Equip Check Anesthesia eq uipment and materials checked in accordance with local policy. 0928 An Start 0930 In Room This event disp lays the In Room time documented in the Surgical Log. Deleting this event will not remove it from the log but will remove it from the Grid and Graph timeline. 0930 An Start Data 0933 Pre-Induction Immediate pre- induction anesthetic assessment performed. Vital signs as noted on graphic. 0934 An Induction 0935 Anesthesia Ready 0936 Procedure Start This event d isplays the Procedure Start time documented in the Surgical Log. Deleting this event will not remove it from the log but will remove it from the Grid and Graph timeline. 0945 Procedure Stop This event di splays the Procedure Stop time documented in the Surgical Log. Deleting this event will not remove it from the log but will remove it from the Grid and Graph timeline. 0950 Out of Room This event disp lays the Out of Room time documented in the Surgical Log. Deleting this event will not remove it from the log but will remove it from the Grid and Graph timeline. 0950 an stop data 0953 An Stop 0953 Hand-off to Receiving Clinic margarito Post-Anesthetic transfer of care report elements to appropriate post-anesthesia recovery environment completed in accordance with procedure. Vital Signs: BP: 147/52 HR 75 SpO2 98 Temp 97.8 Resp 14 Meds Name Total ketamine (KETALAR) 50??mg/mL injection 2 0 mg propofol (DIPRIVAN) 10??mg/mL injection 170 mg midazolam PF (VERSED) 5 mg/mL injection 1 mg lidocaine (XYLOCAINE) 2% injection 100 m g glycopyrrolate (ROBINUL) 1 mg/5 mL (0.2 mg/mL) syringe 0.3 mg dexAMETHasone (DECADRON) 4 mg/mL injecti on 4 mg famotidine (pf) (PEPCID) 20 mg/2 mL inje ction 20 mg ondansetron (ZOFRAN) 4??mg/2 mL injectio n 4 mg clindamycin (CLEOCIN) 900 mg in dextrose 5% 50 mL IVPB 900 mg gentamicin in saline (iso-os m) (GARAMYCIN) 100 mg/100 mL traditional dose IVPB 100 mg 100 mg lactated ringers infusion 200 mL * Agents Name O2 * Blood No blood administrations on file. Lines, Drains, and Airways Type Details Placement Removal Peripheral IV Orientation: Anterio r, Distal, Left, Lower; Location: Arm; Device: Angiocath; Gauge: 20 gauge; Needle Length: 1 in length; Insertion Attempts: 1; Patient Tolerance: tolerated well; Removal Indication: no longer indicated; Removal Interventions: pressure dressing, catheter intact 12/21/21 0830 by Cassia Sesay RN 12/21/21 1142 by Oumou Truong RN Incision 12/21/21; 0946; surg ical incision; gluteal; 12/21/21; 2346 12/21/21 0946 by Daniella Oshea RN 12/21/21 2346 by PROVIDER, DISCHARGE PATIENT documented in this encounter Social History Tobacco [...] AM CDT documented as of this encounter OR Notes * Anesthesia Postprocedure Evaluation - Isaac Schilling AA-C - 12/21/2021 9:54 AM CDT Post Anesthesia Evaluation Vitals: Vitals Value Taken Time BP 147/52 12/21/21951 Temp 36.6 ??C 12/21/21951 Resp 14 12/21/21951 SpO2 98 % 12/21/21951 Pulse 75 12/21/21951 Heart Rate Pain Rating: Pain Rating: Rest: 0 (12/21/21951) Presence of Pain: denies pain/discomfort (12/21/21951) Anesthesia Post Evaluation Patient participation: patient was able to participate in the post op evaluation Level of consciousness: 0 = alert, responsive, answers simple questions appropriately, able to perform simple tasks Pain management: adequate Airway patency: patent Nausea or Vomiting: none Cardiovascular status: regular rate and rhythm Respiratory status: no respiratory symptoms Hydration status: well hydrated No notable events documented. ASIA Valenzuela * Anesthesia Handoff - Isaac Schilling AA-C - 12/21/2021 9:53 AM CDT Post-Anesthetic transfer of care report elements to appropriate post-anesthesia recovery environment completed in accordance with procedure. I completed my handoff to the receiving nurse during which we: 1. Identified the patient 2. Identified the responsible provider 3. Reviewed the pertinent medical history 4. Discussed the surgical course 5. Reviewed intra-op anesthesia management and issues during anesthesia 6. Set expectations for post-procedure period 7. Orders as necessary and appropriate for continuation of care are present in Epic. 8. Allowed opportunity for questions and acknowledgement of understanding. Vital Signs: BP: 147/52 HR 75 SpO2 98 Temp 97.8 Resp 14 9:53 AM ASIA Valenzuela * Anesthesia Preprocedure Evaluation - Angelito Robles MD - 12/21/2021 9:02 AM CDT Images from the original note were not included. Anesthesia Evaluation Patient summary reviewed and Nursing notes reviewed Airway Mallampati: II TM distance: >3 FB Neck ROM: full Dental - normal exam Pulmonary - negative ROS breath sounds clear to auscultation (-) recent URI, sleep apnea Cardiovascular Exercise tolerance: (>4 mets) (+) dysrhythmias (s/p cardioversions and AF ablation), (-) pacemaker, past LA, CABG/stent, angina, CHF, orthopnea, PND, HERNANDEZ, murmur, weak pulses, peripheral edema Rhythm: regular Rate: normal Neuro/Psych (+) psychiatric history (-) seizures, TIA, CVA GI/Hepatic/Renal - negative ROS (-) liver disease, renal disease Endo/Other - negative ROS Abdominal (-) obese Anesthesia History No history of anesthetic complications. Anesthesia Plan ASA Final: 3 MAC (I interviewed the patient or sales representative church furniture to discuss relevant medical history and anesthetic experiences, performed a focused physical exam, and assessed the aspects of the patient's physical condition that may affect decisions regarding perioperative management. I reviewed any documented allergies, medications, and pertinent diagnostic data and recent notes in the medical record. Most recent p re-anesthesia clinic note reviewed, if available. We had a discussion and disclosure about the material risks, common techniques, and expected recovery from MAC anesthesia and the patient voiced understanding and wished to proceed with this plan. A meaningful opportunity for answering questions was included and a reasonable expectation regarding post-procedure pain or discomfort was offered, when applicable. ) NPO status: Appropriately fasted per ASA Practice Guidelines (2016) Anesthetic plan and risks discussed with Patient and Spouse. Plan discussed with Surgeon and Anesthesiologist Graphotype Operator. Post-op Pain Control Plan to use Per surgeon for post-op pain control. Smoking Compliance Patient did not smoke on day of surgery Body mass index is 29.16 kg/m??. Patient Vitals for the past 24 hrs: BP Temp Temp src Pulse Resp SpO2 Height Weight 12/21/21 0827 137/80 36.3 ??C Temporal 65 18 95 % 5' 8 (1.727 m) 87 kg (191 lb 12.8 oz) Results for orders placed or performed during the hospital encounter of 11/08/21 EKG 12-LEAD Narrative Stationary ECG Study [facility] Test Date: 11/08/2021 3:12 PM Pat Name: SERG CAMARA Department: 56 Room: Gender: Photographic Processor: [id number] : 1960 Requested By: GALO VILLAREAL Order Number: [id number] Reading MD: Andrez Robbins Measurements Intervals [place] Rate: 60 P: 52 AL: 169 QRS: 40 QRSD: 93 T: 43 QT: 377 QTc: 379 Interpretive Statements SINUS RHYTHM Electronically Signed On 11-08-2021 15:37:54 CDT by Andrez Robbins documented in this encounter Plan of Treatment Not on file documented as of this encounter Visit Diagnoses Not on filedocumented in this encounter Administered Medications Inactive Administered Medications - up to 3 most recent administrations Medication Order MAR Action Action Date Dose Rate Site clindamycin (CLEOCIN) 900 mg in dextrose 5% 50 mL IVPB 900 mg, IV, PRE-PROCEDURE ONCE, 1 dose, Starting on Fri12/21/21 at 0814, Until Fri12/21/21 at 1002, Routine, Pre-op, Antibiotic Indication: Surgical prophylaxis Given 12/21/2021 9:32 AM CDT 900 mg dexAMETHasone (DECADRON) 4 mg/mL injection IV, INTRA-PROCEDURE PRN, Starting on Fri12/21/21 at 0937, Until Fri12/21/21 at 0954, Routine, Anesthesia Intra-op Given 12/21/2021 9:37 AM CDT 4 mg famotidine PF (PEPCID) 20 mg/2 mL injection IV, INTRA-PROCEDURE PRN, Starting on Fri12/21/21 at 0928, Until Fri12/21/21 at 0954, Routine, Anesthesia Intra-op Given 12/21/2021 9:28 AM CDT 20 mg gentamicin in saline (iso-osm) (GARAMYCIN) 100 mg/100 mL traditional dose IVPB 100 mg 100 mg, IV, PRE-PROCEDURE ONCE, 1 dose, Starting on Fri12/21/21 at 0814, Until Fri12/21/21 at 1002, Routine, Pre-op, Antibiotic Indication: Surgical prophylaxis Given 12/21/2021 9:32 AM CDT 100 mg glycopyrrolate (ROBINUL) 1 mg/5 mL (0.2 mg/mL) syringe IV, INTRA-PROCEDURE PRN, Starting on Fri12/21/21 at 0928, Until Fri12/21/21 at 0954, Routine, Anesthesia Intra-op Given 12/21/2021 9:28 AM CDT 0.3 mg ketamine 50 mg/mL injection IV, INTRA-PROCEDURE PRN, Starting on Fri12/21/21 at 0935, Until Fri12/21/21 at 0954, Routine, Anesthesia Intra-op Given 12/21/2021 9:35 AM CDT 20 mg lactated ringers infusion IV, at 125 mL/hr, CONTINUOUS, Starting on Fri12/21/21 at 0845, Until Fri12/21/21 at 1351, Routine Restarted 12/21/2021 9:32 AM CDT Continue from Pre-Op 12/21/2021 9:28 AM CDT 125 mL/hr New Bag 12/21/2021 8:38 AM CDT 125 mL/hr lidocaine 2 % (XYLOCAINE) injection IV, INTRA-PROCEDURE PRN, Starting on Fri12/21/21 at 0934, Until Fri12/21/21 at 0954, Routine, Anesthesia Intra-op Given 12/21/2021 9:34 AM CDT 100 mg midazolam (PF) (VERSED) injection IV, INTRA-PROCEDURE PRN, Starting on Fri12/21/21 at 0928, Until Fri12/21/21 at 0954, Routine, Anesthesia Intra-op Given 12/21/2021 9:28 AM CDT 1 mg ondansetron (ZOFRAN) 4 mg/2 mL injection IV, INTRA-PROCEDURE PRN, Starting on Fri12/21/21 at 0928, Until Fri12/21/21 at 0954, Routine, Anesthesia Intra-op Given 12/21/2021 9:28 AM CDT 4 mg propofoL (DIPRIVAN) injection IV, INTRA-PROCEDURE PRN, Starting on Fri12/21/21 at 0934, Until Fri12/21/21 at 0954, Anesthesia Intra-op Given 12/21/2021 9:38 AM CDT 50 mg Given 12/21/2021 9:36 AM CDT 20 mg Given 12/21/2021 9:34 AM CDT 100 mg documented in this encounter
--- OUTSIDE RECORDS SUMMARY | 2024-03-07 22:01 | XMS_ITS | Encounter Summary ---
Author Organization [facility] Address [address] Esparza: Epic Prelude ADT CRELAKEISHA KRISHNA [address] Care Team Providers Care Domestic Technician Name Role Phone Unavailable Primary Care Provider Unavailabl e Encounter Details Date Type Department Care Team (Latest Contact Info) Description 10/26/2021 Travel Social History Tobacco Use Types Packs/Day [...] PM CDT documented as of this encounter Plan of Treatment Not on file documented as of this encounter Visit Diagnoses Not on filedocumented in this encounter
--- OUTSIDE RECORDS SUMMARY | 2024-03-07 22:01 | XMS_ITS | Encounter Summary ---
Author Organization [facility] Address [address] [place] [address] Care Team Providers Care Dealer Sales Rep Name Role Phone Unavailable Primary Care Provider Unavailabl e Encounter Details Date Type Department Care Team (Latest Contact Info) Description 11/08/2021 2:46 PM CDT - 11/08/2021 11:59 PM CDT Hospital Encounter [facility] [address] [place] [address] Galo Villareal MD [address] [facility] [address] [place], [place] [id number] Discharge Disposition: Home or Self Care Social [...] Sign Reading Time Taken Comments Blood Pressure 117/78 11/08/2021 3:05 PM CDT Pulse 75 11/08/2021 3:05 PM CDT Temperature - - Respiratory Rate - - Oxygen Saturation 97% 11/08/2021 3:05 PM CDT Inhaled Oxygen Concentration - - Weight 83.5 kg (184 lb) 11/08/2021 3:05 PM CDT Height 172.7 cm (5' 8 ) 11/08/2021 3:05 PM CDT Body Mass Index 27.98 11/08/2021 3:05 PM CDT documented in this encounter Discharge Instructions * Discharge Instructions* Conrad Jurado RN - 11/08/2021 3:14 PM CDT Images from the original note were not included. [facility] Pre-Procedure Instructions [employer] [facility]ACE Name: Serg Maldonado Age: 60 y.o. Please report to the: [facility] at [address] [address] Date of Procedure: 11/16/2021 Please follow these important instructions Limit time spent out in the community (self-quarantine) prior to surgery/procedure to avoid any potential for COVID-19 exposure. Arrive at the time your surgeon's office has instructed. You will receive a call from your surgeon's office with your arrival time. Please note, based on patient and procedure specific considerationspatients are normally told to arrive either 1.5 hours or 2 hours prior to their surgery start time.If you have not been given your arrival time 2 days before your surgery, please contact your surgeon 's office. The decision whether to stay overnight or go home will be made by the attending surgeon. If you have any questions, call the [facility] at [phone]; Friday-Friday 7:30am-4:00pm PLEASE NOTIFY your surgeon promptly if you begin to feel ill prior to your surgery. A cold, sore throat, fever, flu or covid symptoms may require postponing the surgery to another date for your safety. PRE-PROCEDURE DIETARY INSTRUCTIONS Below are the guidelines from the anesthesia department: ADULT FASTING INSTRUCTIONS - OUTPATIENTS & PATIENTS WHO WILL BE ADMITTED FOLLOWING PROCEDURE PLEASE READ BEFORE DAY OF PROCEDURE Clear Liquids THE ONLY CLEAR LIQUIDS ALLOWED ARE: Water Gatorade or other sports/electrolyte drinks Juices: Clear Apple, white grape, cranberry (No pulp or cider) Coffee/Tea WITHOUT cream or other additive IF INSTRUCTED, CLEAR nutritional supplement drink No other clear liquids allowed including alcohol *See Exceptions Below STOP 3 hours before your scheduled procedure time: DO NOT EXCEED 1L OF ALLOWED CLEAR LIQUIDS BETWEEN MIDNIGHT AND 3 HOURS PRIOR TO YOUR PROCEDURE ALL other foods and non-clear liquids All solid food, all liquids you are unable to see through *See Exceptions Below STOP at midnight prior to the morning of your procedure Exceptions: Patients with End Stage Kidney Disease, gastroparesis (slow emptying of the stomach) - CLEAR LIQUIDS MUST STOP SIX (6) HOURS PRIOR TO YOUR PROCEDURE If you are having surgery under the Enhanced Recovery After Surgery (ERAS) protocol, please disregard these instructions and follow the ERAS instructions. Patients for GI colonoscopy should follow colonoscopy instructions. If your surgeon has instructed you to stay on a clear liquid diet prior to day of surgery, follow your surgeon's instructions and avoid all food and non-clear liquids WITHIN 24 HOURS PRIOR TO SURGERY Shower (bathe) and shampoo the evening before and morning of surgery. If instructed to do so, please follow the directions on the provided soap or antibacterial soap. Before you bathe, or shower carefully read all directions and warnings on the product label. Showeror bathe with an antiseptic soap solution chosen by your surgeon, such as Chlorhexidine Gluconate (CHG) with brand names like Hibiclens. If you are allergic to CHG, Hibiclens or Aloe DO NOT use product. Showering will ensure removal of bacteria and minimize risk of infection. Do not use the CHG soap on your face. Avoid getting the soap in your genital area, eyes, ears, mouth, or nose. While using the soap, if you feel itchy or experience red skin, stop using the product and immediately rinse off with water. Tell your care team about this reaction. After rinsing off the soap, do not use regular soap. After your shower, do not apply any powders, lotion, creams, deodorant, or makeup to your skin. Do not shave or remove any hair at the surgical site four days prior to surgery. Using a clean freshly laundered dry towel pat dry after the showers each time you shower. Sleep in clean freshly laundered sleepwear and bed linens. DO NOT WEAR JEWELRY (rings, earrings, and body piercings), wigs, or hair pieces to the hospital. We recommend patients abstain from SMOKING or VAPING TOBACCO / NICOTINE / MEDICAL MARIJUANA for as long as possible prior to surgery. DO NOT SMOKE, VAPE OR USE any TOBACCO / NICOTINE/ MEDICAL MARIJUANA PRODUCTS (smoking, oral, edibleproducts, ointments, tinctures and concentrates) on the day of your procedure. DAY OF SURGERY INSTRUCTIONS YOU WILL NEED A RESPONSIBLE ADULT FAMILY MEMBER OR FRIEND WITH YOU UPON DISCHARGE. YOUR SURGERY MAYBE CANCELLED IF YOU DO NOT HAVE A RESPONSIBLE ADULT TO TAKE YOU HOME. It is highly suggested you have a responsible adult with you overnight after receiving anesthesia. WEAR comfortable, loose fitting clothes to the hospital that will fit over dressings after your surgery. WEAR GLASSES instead of contact lenses to the hospital; bring a case if possible for glasses, dentures, and hearing aids as you will be asked to remove these items before your surgery. BRING your insurance cards and water taxi driver's license or photo ID. DO NOT BRING VALUABLES or large amounts of alvarado with you to the hospital. BRING any medical devices you need to the hospital, including remotes for stimulators, CPAP, BIPAP,or WOUND VAC machines. Surgical times are estimates and can vary depending on numerous factors. Expect a minimum post-op recovery of 1 hour. The medical staff will provide updates to family and/or friends as appropriate. For surgical procedures, patient may be allowed two adult visitors. Special considerations may be allowed for pediatric patients under the age of 18 years. Patient and any permitted visitor should arrive to the facility with a mask. If arriving to the facility without a mask, one will be provided. Special considerations may be allowed for pediatric patients under 2 years of age. Patient will wear a mask from the time they enter the facility and will remain in a mask until theyleave the facility. During your hospital stay you will receive a personal passcode to help protect your health information. This will be a number that you may share with anyone you choose to receive your protected health information (PHI). Family and friends will need to ask for you by name and use the passcode beforeyour care team can share information, either in person or by phone. Please ask those who have your passcode to protect it. Obstructive Sleep Apnea Obstructive sleep apnea is a common and serious sleep disorder that causes you to stop breathing during sleep. The airway repeatedly becomes blocked, limiting the amount of air that reaches your lungs. When this happens, you may snore loudly or make choking noises as you try to breathe. Your brain and body becomes oxygen deprived and you may wake up. This may happen a few times a night, or in more severe cases, several hundred times a night. Sleep apnea can make you wake up in the morning feeling tired or unrefreshed even though you have had a full night of sleep. During the day, you may feel fatigued, have difficulty concentrating or you may even unintentionally fall asleep. This is because your body is waking up numerous times throughout the night, even though you might not be conscious of each awakening. The lack of oxygen your body receives can have negative long-term consequences for your health. This includes: ?? High blood pressure ?? Heart disease including heart attack, abnormal heart rhythms and heart failure ?? Stroke ?? Pre-diabetes and diabetes ?? Depression, memory problems ?? Drowsy driving and car accidents You were screened for Obstructive Sleep Apnea (LIYA) using the STOP-BANG scale. Sleep Apnea may impact your health during and after your anesthesia. Just as importantly, undiagnosed or untreated LIYA can have a negative impact on your overall health. Your screening indicates that you are: 0-2 at low risk for LIYA. We don't feel that you need to do anything based on this score but encourage you to talk to your primary care provider if you have any questions about the screening tool or LIYA. ADVANCED PLANNING FOR MEDICATION USE * Unless otherwise ordered by a member of the [facility] Staff. 1. STOP a. Seven (7) DAYS PRIOR TO SURGERY OR WHEN NOTIFIED IF < SEVEN DAYS: The use of all vitamins, herbal supplements, and other alternative substances. b. Seven (7) DAYS PRIOR TO SURGERY: The use of any UNPRESCRIBED Aspirin, Excedrin and NSAIDs which include Motrin, Ibuprofen, Aleve, and Naprosyn. documented in this encounter Medications at Time of Discharge Medication Sig Dispensed Refills Start Date End Date apixaban (ELIQUIS) 5 mg tablet Take by [...] 12/21/2021 01/13/2022 documented as of this encounter OR Notes * Anesthesia PAT Evaluation - Titus Chaves FNP - 11/08/2021 3:00 PM CDT Pre-Procedure Anesthesiology Consultation and Evaluation (PACE) Service 11/08/2021 3:22 PM Name: Serg Maldonado Age: 60 y.o. Sex: male CSN: [id number] Procedure(s): PROSTATE TRANSRECTAL BIOPSY No Known Allergies AM meds DOS per AVS summary in media. Eliquis 5 mg tablet Generic drug: apixaban Medication Adjustments for Surgery: Other (see comment) Notes to patient: Patient to call Dr. Villareal for recommendations on when to stop Eliquis prior tosurgery. Patient to then call Dr. Cordon for approval of surgeon's recommendations or to receive alternate instruction. escitalopram oxalate 5 mg tablet Commonly known as: LEXAPRO Medication Adjustments for Surgery: Take morning of surgery with sip of water FLECAINIDE ORAL Medication Adjustments for Surgery: Take morning of surgery with sip of water rosuvastatin 10 mg tablet Commonly known as: CRESTOR Medication Adjustments for Surgery: Take morning of surgery with sip of water Patient Active Problem List Diagnosis Date Noted Prostate cancer 10/22/2021 Past Medical History: Diagnosis Date Atrial fibrillation Hyperlipidemia Malignant neoplasm of prostate Past Surgical History: Procedure Laterality Date HX CARPAL TUNNEL RELEASE Bilateral HX HERNIA REPAIR HX SHOULDER SURGERY Right Social History Tobacco Use Smoking status: Never Smokeless tobacco: Never Substance Use Topics Alcohol use: Not Currently No family history on file. Previous Anesthesia Problems/Concerns: No anesthesia problems/complications History of PONV No Review of Systems Cardiovascular: elevated lipids, PAfib, hx of aflutter ablation, ILR in the past, no longer functioning negative for chest pain, chest pressure/discomfort, exertional chest pressure/discomfort, palpitations, shortness of breath/dyspnea. 3 flight of stairs without SOB/CP Respiratory: negative Snoring - No, LIYA - No Gastrointestinal: negative. Genitourinary:negative. Musculoskeletal: negative Neurological: negative Endocrine negative Oncology: Prostate CA 2021. Hx of DVT related to travel. PHYSICAL EXAM BP 117/78 (BP Location: Left arm, Patient Position (BP): Sitting) Pulse 75 Ht 5' 8 (1.727 m) Wt 83.5 kg (184 lb) SpO2 97% BMI 27.98 kg/m?? Weight: Weight: 83.5 kg (184 lb) (11/08/21 1505) Height: Ht Readings from Last 1 Encounters: 11/08/21 5' 8 (1.727 m) BMI: Body mass index is 27.98 kg/m??. General Appearance: Alert, oriented, no acute distress Airway: normal range of motion; Airway Class: II (soft palate, uvula, fauces visible); Special Considerations None Dentition: good and caps/crowns Lungs: clear to auscultation bilaterally, normal respiratory effort Heart: regular rate and rhythm, S1, S2 normal, no murmur, click, rub or gallop Neuro: alert, oriented x 3, no defects noted in general exam. Extremities: extremities normal, atraumatic, no cyanosis or edema LABS No results found for: WBC, MANUALWBC, HGB, HGBPOC, HCT, HCTPOC, PLT, MCV No results found for: NA, K, CL, CO2, CA, BUN, CREAT, GLUCOSE, ANIONGAP, BCRATIO No results found for: INR, PT, PROTIMEPOC No results found for: HCGURPOC, HCGQUALUR, HCGQUAL, HCGQUANT, HCGINTACT EK11/08/2021 Other Studies/Considerations: Cardiac studies 09/2020 Event monitor SUMMARY: -Predominant rhythm is normal sinus rhythm [...] consider removing and replacing his loop recorder. 09/2020 CTA brain and neck Brain: The internal carotid arteries, middle cerebral arteries, right anterior cerebral arteries, vertebral arteries, posterior cerebral arteries, basilar artery, and branch vessels of the [place] are widely patent without evidence of vessel stenosis or vessel occlusion. There is absence or atrophy of the left A1 segment. The distal bilateral anterior cerebral arteries are unremarkable. No intracranial aneurysms are identified. There are no gross arterio-venous malformations. Impression: Unremarkable brain CTA 05/2020 Office note from Cardio ASSESSMENT Paroxysmal AF - 11/07/14 Hx of [...] past ). Follow up in 12 months 2019 ECHO History: - A-FLUTTER,HX OF ABLATION,SVT,PAC,PAF,PALPITATIONS,LOOP RECORDER IMPLANT. [...] Mitral Valve: MR Vmax was 5.43 m/s. Risks/Alternatives discussed. Questions solicited and answered. Yes Postop pain management discussed yes Smoking/Tobacco Counseling: None Recommendations:None ATTESTATIONS (Not in a hospital admission) I obtained, updated or reviewed the patient's current medications including dosage, frequency, and route of administration. This information was obtained directly from the patient or inside outside sales representative or caregiver or another available healthcare resource and updated in [facility] EMR. Social History Tobacco Use Smoking Status Never Smokeless Tobacco Never Patient screened for tobacco use and identified as a Non-User of tobacco. REPORT AND NECESSARY FOLLOW-UP History and physical performed in [facility]; tests (ECG, blood work) reviewed. Abnormal Results Found: no Further Testing or Evaluation Required: no Final [facility] Review: May proceed with procedure/surgery: yes Stop bang score is 2 Based on a STOP-BANG score of 0-2 the patient is deemed low risk for LIYA and there is no follow-up,education nor interventions needed. Evaluation and management of patient, which requires a medically appropriate history and/or examination:83732 - New (30-44 minutes total time) - low level medical decision making I spent 30 minutes today related to the care of this patient, including: Preparing to see the patient (e.g. review of tests), obtaining and/or reviewing separately obtainedhistory, performing an examination and/or evaluation, counseling and educating the patient/family/caregiver, documenting clinical information in the record, and decision-making regarding suitability for proceeding with surgical procedure Titus Chaves, GUIDO Associated attestation - Codie Mckeon MD - 2021 11:59 PM CDT I, Codie Mckeon MD, attest that I have reviewed the Advanced Practitioner's note - including the history, documented findings, assessment, and plan. I agree with the plan as documented exceptwhere noted. Codie Mckeon MD * Ghislaine-OP - Soc, Conrad Jordan RN - 11/08/2021 3:00 PM CDT Images from the original note were not included. [facility] Routine Orders Protocol Approved by: [facility] - Medical Executive Committee Approval Date: 09/13/2021 ORDERS ARE ENTERED ???PER PROTOCOL?? Enter the protocol in the patient's electronic health record using smart phrase: .paceroutineordersprotocol Laboratory Orders: PACE/Anesthesiology Care Screening for Procedures Laboratory exams obtained within 3 months prior to surgery are acceptable if normal, or at baseline. Hematocrit/Hemoglobin ([id number]) Cases of expected major blood loss in patients of any age as evidenced by an order for Type and Cross or Type and Screen. PT/INR ([id number]) should be drawn day of surgery for patients: Taking Warfarin (Coumadin) or who have had Warfarin (Coumadin) discontinued within prior 7 days BMP (Lab15) Patients with: Diabetes Renal disease Dialysis patients: Day of Surgery; If dialysis on day of surgery, post-dialysis Patients taking the following medications: Digoxin Diuretics Steroids BUN (Hfi299)/ Serum Cr (Lab66) When use of intravenous contrast dye is planned Liver function panel (Lab20) in any patient with: Jaundice, or active liver disease HgbA1c: If result not available from within 3 months of [facility] phone or in-person contact, for patients that meet the following conditions: Planned operation is a total hip/knee joint replacement or spinal fusion, Hx of diabetes BMI >35 (for major surgeries) EKG (EKG) 12 lead EKG EKG obtained within the last 3 months for the following: Known cardiac disease (CAD, CHF, moderate or worse valvular disease) Patients undergoing cardiac, thoracic, or vascular surgery CIED Cardiac Symptoms: Angina, dysrhythmia, palpitations, SOB, PND, S3 Moderate or greater risk surgery with any of the following: Stroke/TIA/CVD, PAD/PVD, CKD (Cr>2), DM, or Drugs or toxins that alter conduction (e.g., digoxin, cocaine, MAOIs, antiarrhythmics, antipsychotics, TCAs) Medication Orders: Unless otherwise ordered by a member of the [facility] Anesthesiology Staff. STOP Seven (7) DAYS PRIOR TO SURGERY OR WHEN NOTIFIED IF < SEVEN DAYS: the use of all vitamins, herbal supplements, and other alternative substances. Seven (7) DAYS PRIOR TO SURGERY: The use of any UNPRESCRIBED Aspirin, Excedrin and NSAIDs which include Motrin, Ibuprofen, Aleve, and Naprosyn. The use of phentermine, or medications containing phentermine. 24 HOURS PRIOR TO PLANNED ARRIVAL AT [facility]: use of angiotensin-converting enzyme (MORGAN) inhibitor and angiotensin receptor taj (ARB). HOLD ON THE MORNING OF SURGERY/PROCEDURE: Diuretics Opioid ANTAGONISTS Continue-Prescribed medications on usual schedule and take medication day of surgery with sips of water to swallow Aspirin and NSAIDS unless specifically instructed by surgeon to discontinue. Patients taking a gabapentinoid TOBACCO BUYER continue usual medication and doses up to and on the day of procedure All other prescription medicines on routine schedule as prescribed, unless instructed otherwise Blood Bank: For surgical procedures, prepare blood per [facility] Blood Bank Orders and Patient Identification for Blood Products unless additional blood or blood products have been ordered by a provider, then follow provider order Educational Materials: (to be provided to patients that present in person to the [facility]) [facility] NPO Guidelines Attachment [facility] Nutrition Before Surgery Guidelines * Ghislaine-OP - Conrad Jurado RN - 11/08/2021 3:00 PM CDT Patient instructed to call Dr. Villareal for recommendations on when to stop Eliquis prior to surgery. Patient instructed to then call Dr. Cordon, who manages Eliquis, for approval of surgeon's recommendations or to receive alternate instruction. Patient verbalized an understanding. documented in this encounter Plan of Treatment Not on file documented as of this encounter Procedures Procedure Name Priority Date/Time Associated Diagnosis Comments EKG 12-LEAD Routine 11/08/2021 3:12 PM CDT CBC WITHOUT DIFFERENTIAL Routine 11/08/2021 3:08 PM CDT BASIC METABOLIC PANEL Routine 11/08/2021 3:08 PM CDT documented in this encounter Results * EKG 12-LEAD (11/08/2021 3:12 PM CDT) 11/08/2021 3:12 PM CDT Narrative INTERFACE SYSTEM - 11/08/2021 3:37 PM CDT ? Stationary ECG Study ? [facility] ? Test Date: ?11/08/2021 3:12 PM Pat Name: ? SERGCHARLENE MALDONADO ? Department: ?? 56 ?Room: ? Gender: ? M ?Vehicle Assembly Inspector: ?? [id number] : ?1960 ? Requested By: GALO VILLAREAL ?? Order Number: [id number] ? Reading : ?? Andrez Robbins ? Measurements Intervals ?[place] ? Rate: ? 60 ? P: ?52 AR: ? 169 ?QRS: ?40 QRSD: ? 93 ? T: ?43 QT: ? 377 ? QTc: ?379 ? Interpretive Statements ? SINUS RHYTHM Electronically Signed On 11-08-2021 15:37:54 CDT by Andrez Robbins Procedure Note Provider, Historical - 11/08/2021 Stationary ECG Study [facility] Test Date: 11/08/2021 3:12 PM Pat Name: SERG MALDONADO Department: 56 Room: Gender: M Vehicle Assembly Inspector: [id number] : 1960 Requested By: GALO VILLAREAL Order Number: [id number] Reading MD: Andrez Robbins Measurements Intervals [place] Rate: 60 P: 52 AR: 169 QRS: 40 QRSD: 93 T: 43 QT: 377 QTc: 379 Interpretive Statements SINUS RHYTHM Electronically Signed On 11-08-2021 15:37:54 CDT by Andrez Robbins Titus Chaves BIOCHEMICAL DEVELOPMENT ENGINEER ECG ORDERABLES INTERFACE SYSTEM Refer to clinic/hospital department * BASIC METABOLIC PANEL (11/08/2021 3:08 PM CDT) SODIUM 138 136 - 145 mmol/L 11/08/2021 4:38 PM CDT [facility] - [facility] POTASSIUM 4.2 3.5 - 5.0 mmol/L 11/08/2021 4:38 PM CDT [facility] - . [facility] CHLORIDE 105 98 - 107 mmol/L 11/08/2021 4:38 PM CDT [facility] - . [facility] CO2 23 22 - 29 mmol/L 11/08/2021 4:38 PM CDT [facility] CALCIUM 9.7 8.6 - 10.2 mg/dL 11/08/2021 4:38 PM CDT [facility] - . [facility] BUN 12 8 - 23 mg/dL 11/08/2021 4:38 PM CDT [facility] - . [facility] CREATININE 0.93 0.67 - 1.17 mg/dL 11/08/2021 4:38 PM CDT [facility] - . [facility] GLUCOSE 87 74 - 99 mg/dL 11/08/2021 4:38 PM T [facility] - . [facility] GFR >60 >=60 mL/min/1.7 3 sq meter 11/08/2021 4:38 PM T [facility] Comment:eGFR calculated with 2020 CKD-EPI equation. Vegetarian diet, extremely high or low muscle mass, and may affect results. Cystatin C with Glomerular Filtration Rate is a suitable alternative for these patients. ANION GAP 10 8 - 16 mmol/L 11/08/2021 4:38 PM CDT [facility] Blood Venipuncture / Unknown 11/08/2021 3:08 PM CDT 11/08/2021 3:59 PM CDT Titus Chaves [facility] CHEMISTRY ORDERABLES [facility] - [facility] CLIA# [id number] [address] [address] [place] [place] [address] * CBC WITHOUT DIFFERENTIAL (11/08/2021 3:08 PM CDT) WBC 5.1 4.0 - 9.8 K/uL 11/08/2021 4:11 PM CDT [facility] - . [place] RBC 5.02 4.50 - 5.40 M/uL 11/08/2021 4:11 PM CDT [facility] - . [facility] HEMOGLOBIN 15.3 13.6 - 16.5 g/dL 11/08/2021 4:11 PM CDT [facility] - [facility] HEMATOCRIT 45.2 40.0 - 48.0 % 11/08/2021 4:11 PM CDT [facility] - . [facility] MCV 90.0 82.0 - 99.0 fL 11/08/2021 4:11 PM CDT [facility] - [facility] MCH 30.5 27.2 - 32.6 pg 11/08/2021 4:11 PM CDT [facility] - . [facility] MCHC 33.8 31.5 - 35.5 g/dL 11/08/2021 4:11 PM CDT [facility] - [facility] PLATELETS 313 140 - 350 K/uL 11/08/2021 4:11 PM CDT [facility] - . [facility] MPV 9.8 9.3 - 12.4 fL 11/08/2021 4:11 PM CDT [facility] - . [facility] [facility] RDW 12.8 11.5 - 14.5 % 11/08/2021 4:11 PM CDT [facility] - . [facility] RDW-STDEV 42.1 37.1 - 48.7 fL 11/08/2021 4:11 PM CDT [facility] - . [facility] Blood Venipuncture / Unknown 11/08/2021 3:08 PM CDT 11/08/2021 3:59 PM CDT Titus Chaves BIOCHEMICAL DEVELOPMENT ENGINEER HEMATOLOGY ORDERABLE S Performing Organization Address [facility] Co de Phone Number [facility]# [id number] [address] [place] [address] documented in this encounter Visit Diagnoses Not on filedocumented in this encounter
--- OUTSIDE RECORDS SUMMARY | 2024-03-07 22:01 | XMS_ITS | Encounter Summary ---
Author Organization [facility] Address [address] [place] [address] Care Team Providers Care Quill Machine Operator Name Role Phone Unavailable Primary Care Provider Unavailabl e Encounter Details Date Type Department Care Team (Late st Contact Info) Description 10/14/2023 External Device Data STL ABSTRACTION Provider, Abstract [...]
--- OUTSIDE RECORDS SUMMARY | 2024-03-07 22:01 | XMS_ITS | Encounter Summary ---
Author Organization [facility] Address [address] [place] [address] Care Team Providers Care Medical Laboratory Assistant Name Role Phone Unavailable Primary Care Provider Unavailabl e Encounter Details Date Type Department Care Team (Late st Contact Info) Description 06/17/2023 External Device Data STL ABSTRACTION Provider, Abstract [...]
--- OUTSIDE RECORDS SUMMARY | 2024-03-07 22:01 | XMS_ITS | Encounter Summary ---
Author Organization [facility] Address [address] [place] [address] Care Team Providers Care Gasoline Engine Inspector Name Role Phone Unavailable Primary Care Provider Unavailabl e Reason for Visit * Reason Onset Date Comments Results 12/26/2021 Encounter Details Date Type Department Care Team (Late st Contact Info) Description 12/26/2021 Telephone [facility] [address] [place] [address] Galo Villareal MD [address] [place] [address] Results Social History Tobacco Use Types Packs/Day Years [...] AM CDT documented as of this encounter Miscellaneous Notes * Telephone Encounter - Galo Villareal MD - 12/26/2021 1:57 PM CDT Called patient to let him know his confirmatory biopsy shows no cancer. We discussed that this doesnot is mean his cancer is gone but this is reassuring. I will see him back in 3 months with PSA. documented in this encounter Plan of Treatment Not on file documented as of this encounter Visit Diagnoses Diagnosis Prostate cancer- Primary Malignant neoplasm of prostate documented in this encounter
--- OUTSIDE RECORDS SUMMARY | 2024-03-07 22:01 | XMS_ITS | Encounter Summary ---
Author Organization [facility] Address [address] [place] [address] Care Team Providers Care Paperhanger Supervisor Name Role Phone Unavailable Primary Care Provider Unavailabl e Encounter Details Date Type Department Care Team (Late st Contact Info) Description 07/01/2023 External Device Data STL ABSTRACTION Provider, Abstract [...]
--- OUTSIDE RECORDS SUMMARY | 2024-03-07 22:01 | XMS_ITS | Encounter Summary ---
Author Organization [facility] Address [address] [place] [address] Care Team Providers Care Social Work Therapist Name Role Phone Unavailable Primary Care Provider Unavailabl e Reason for Visit * Auth/Cert Specialty Diagnoses / Procedures Referred By Rosa t Referred To Contact Diagnoses Prostate cancer Prostate cancer [C61] Procedures CT BIOPSY OF PROSTATE,NEEDLE/PUNCH Galo Villareal MD [address] [address] Referral ID Status Reason Start Date Expiration Date Visits Re quested Visits Authorized [id number] 10/26/2021 1 1 Encounter Details Date Type Department Care Team (Latest Contact Info) Description 12/21/2021 7:58 AM CDT - 12/21/2021 11:46 AM CDT Hospital Encounter [facility] [address] [place] [address] Galo Villareal MD [address] [address] Prostate cancer Discharge Disposition: Home or Self Care Social [...] Sign Reading Time Taken Comments Blood Pressure 145/87 12/21/2021 11:02 AM CDT Pulse 65 12/21/2021 11:02 AM CDT Temperature 36.6 ??C (97.8 ??F) 12/21/2021 11:02 AM C DT Respiratory Rate 16 12/21/2021 11:02 AM CDT Oxygen Saturation 97% 12/21/2021 11:02 AM CDT Inhaled Oxygen Concentration - - Weight 87 kg (191 lb 12.8 oz) 12/21/2021 8:27 AM CDT Height 172.7 cm (5' 8 ) 12/21/2021 8:27 AM CDT Body Mass Index 29.16 12/21/2021 8:27 AM CDT documented in this encounter Discharge Instructions * Discharge Instructions* Oumou Truong RN - 12/21/2021 9:55 AM CDT Images from the original note were not included. [facility] - Urology Exchange: [phone] POST TRANSRECTAL ULTRASOUND AND PROSTATE BIOPSY INSTRUCTIONS [...] our exchange. Either your doctor or the [id number] will call you back. We plan to [...] or come to the Emergency Room at [facility] ([phone]) or the nearest Emergency Room. In an [...] y.o. male Date of : 1960 CSN: [id number] Date of Admission: 12/21/2021 Reason for Admission: [...] Cartagena MD, Last Rate: 125 mL/hr at 8, New Bag at 12/21/21 0838 No Known [...] AM CDT Patient Name: Kenji Camara CSN: [id number] Date of Procedure: 12/21/2021 Preoperative diagnosis: Prostate [...] enema. Procedure #1 -- Prostate ultrasound: CPT: 33384 - Transrectal ultrasound of the prostate He [...] #2 -- Ultrasonic guided prostate biopsies: CPT: 56469 Ultrasound guidance for biopsy CPT: 40236 Prostate needle biopsies Using ultrasound guidance, Prostate [...] Restarted the Eliquis, was seen by his healthcare technician, Dr Cordon. States now in SR, had [...] Pathology 12/21/2021 9:21 AM CDT Prostate cancer CT PROSTATE NEEDLE BIOPSY ANY APPROACH 12/21/2021 9:10 AM CDT Prostate cancer documented in this encounter Results * PATHOLOGY (12/21/2021 9:21 AM CDT) CASE REPORT Surgical Pathology Report ? Case: [id number] ? Authorizing Provider: ??Galo Villareal MD ?Collected: ? 12/21/2021 09:21 AM ? Ordering Location: ? [facility] ?? Received: ?12/21/2021 10:09 AM ? [facility] [place] ? Pathologist: ? Landgraf, Alexander, MD ? Specimens: ?? A) - Prostate, left [...] right lateral apex ? 2 11:55 AM [facility] Massive Analytic [facility] FINAL DIAGNOSIS Left lateral base of [...] biopsy: -Benign prostate tissue. 2 11:55 AM [facility] S DESCRIPTION The specimen is labeled [...] 2 cm; which are submitted labeled L1. ARC 2 11:55 AM [facility] MICROSCOPIC DESCRIPTION The slides are labeled [id number] and Kenji Camara. Microscopic examination substantiates the above cited diagnosis. 2 11:55 AM [facility] OPERATIVE PROCEDURE 1: PROSTATE TRANSRECTAL BIOPSY 2 11:55 AM [facility] CLINICAL INFORMATION Prostate cancer [C61] [id number]-[id number] cancer 2 11:55 AM [facility] COMMENT Special stain, immunohistochemical, and/or in situ hybridization results are interpreted with controls that demonstrate appropriate staining reactions. Note on use of immunohistochemistry reagents and in situ hybridization probes: These tests were developed and their performance characteristics determined by [facility], Department of Laboratory Medicine. It has not [...] part or completely in the following laboratories: [facility], CLIA #[id number] [address] [place] [address] [facility], CLIA #[id number] [address] [place] [address] [facility], CLIA #[id number] [address] [place] [address] This report was created with the [employer] voice-activated dictation system. Inherent to this system is the possibility of syntax, grammar, punctuation and other errors that could impact the interpretation of the report. If there are interpretative questions about aspects of this report, please contact the performing pathologist. 11:55 AM CDT [facility] Tissue ENTIRE PROSTATE / Unknown Collection [...] MD PATHOLOGY/CYTOLOGY O RDERABLES Performing Organization Address City/State/[facility] Co de Phone Number [facility] SERVICES [facility]# [id number] [address] [place] [address] documented in this encounter Visit Diagnoses Diagnosis Prostate cancer Malignant neoplasm of prostate documented [...] Fri12/21/21 at 1351, Routine, Post-op Phase II documented in this encounter Active and Recently [...] Post-op Phase II Continuous Medication Order 12/19/2021 12/20/2021 12/21/2021 lactated ringers infusion IV, at 125 mL/hr, [...]
--- OUTSIDE RECORDS SUMMARY | 2024-03-07 22:01 | XMS_ITS ---
Author Organization [facility] Address [address] [place] [address] Phone Care Team Providers Care Commercial Counsel Name Role Phone Unavailable Primary Care Provider Unavailabl e Active Problems Problem Noted Date Diagnosed Date Prostate cancer 10/22/2021 Current Oncology Plans No current plan information found. Past Plans No past plan information found. Radiation Treatments * No radiation treatments are documented for this patient in [facility]. Treatments may have been administered in another system. Lifetime Dose Tracking * Chemical Lifetime Dose Automatic Entry Manual Entr y Effective Dose 11.4 mSv 11.4 mSv 0 mSv Total DLP 753 DLP 753 DLP 0 DLP CTDIvol Max 15.8 mGy 15.8 mGy 0 mGy CTDIvol Min 15.8 mGy 15.8 mGy 0 mGy
--- OUTSIDE RECORDS SUMMARY | 2024-03-07 22:01 | XMS_ITS | Encounter Summary ---
Author Organization [facility] Address [address] [place] [address] Care Team Providers Care Human Resources Analyst Name Role Phone Unavailable Primary Care Provider Unavailabl e Encounter Details Date Type Department Care Team (Late st Contact Info) Description 06/10/2023 External Device Data STL ABSTRACTION Provider, Abstract [...]
--- OUTSIDE RECORDS SUMMARY | 2024-03-07 22:01 | XMS_ITS | Encounter Summary ---
Author Organization [facility] Address [address] [place] [address] Care Team Providers Care Adult Education Teacher Name Role Phone Unavailable Primary Care Provider [...]
--- OUTSIDE RECORDS SUMMARY | 2024-03-07 22:01 | XMS_ITS | Encounter Summary ---
Author Organization [facility] Address [address] Esparza: Epic Prelude ADT [place] [address] Care Team Providers Care Traveling Operator Name Role Phone Unavailable Primary Care Provider Unavailabl e Encounter Details Date Type Department Care Team (Latest Contact Info) Description 12/21/2021 Travel Social History Tobacco Use Types Packs/Day [...]
--- OUTSIDE RECORDS SUMMARY | 2024-03-07 22:01 | XMS_ITS | Encounter Summary ---
Author Organization [facility] Address [address] [place] [address] Care Team Providers Care Die Setter Name Role Phone Unavailable Primary Care Provider Unavailabl e Reason for Visit * Reason Onset Date Comments Lab Results 09/08/2023 Encounter Details Date Type Department Care Team (Late st Contact Info) Description 09/08/2023 Telephone [facility] [address] [place] [address] Galo Villareal MD [address] [place], [place] [id number] Lab Results Social History Tobacco Use Types Packs/Day Years Used Date Smoking Tobacco: Never Smokeless Tobacco: Never Alcohol Use Standard Drinks/Week Comments Not Currently 0 (1 standard drink = 0.6 oz pur e alcohol) Sex and Gender Information Value Date Recorded Sex Assigned at Not on file Gender Identity Not on file Sexual Orientation Not on file documented as of this encounter Miscellaneous Notes * Telephone Encounter - Galo Villareal MD - 09/08/2023 5:29 PM CDT Called patient to let him know his PSA is stable. He is trying to figure out how to come back and see me due to insurance changes. documented in this encounter Plan of Treatment Not on file documented as of this encounter Visit Diagnoses Not on filedocumented in this encounter
--- OUTSIDE RECORDS SUMMARY | 2024-03-07 22:01 | XMS_ITS | Encounter Summary ---
Author Organization [facility] Address [address] Esparza: Epic Prelude ADT [place] [address] Care Team Providers Care Personal Clothing Laundry Aide Name Role Phone Unavailable Primary Care Provider Unavailabl e Encounter Details Date Type Department Care Team (Latest Contact Info) Description 11/08/2021 Travel Social History Tobacco Use Types Packs/Day [...]
--- OUTSIDE RECORDS SUMMARY | 2024-03-07 22:01 | XMS_ITS | Encounter Summary ---
Author Organization [facility] Address [address] [place] [address] Care Team Providers Care Bistro Attendant Name Role Phone Unavailable Primary Care Provider Unavailabl e Encounter Details Date Type Department Care Team (Late st Contact Info) Description 03/23/2023 External Device Data STL ABSTRACTION Provider, Abstract [...]
--- OUTSIDE RECORDS SUMMARY | 2024-03-07 22:01 | XMS_ITS | Encounter Summary ---
Author Organization [facility] Address [address] [place] [address] Care Team Providers Care Paint Trimmer Pipe Bowls Name Role Phone Unavailable Primary Care Provider Unavailabl e Encounter Details Date Type Department Care Team (Late st Contact Info) Description 03/22/2023 External Device Data STL ABSTRACTION Provider, Abstract [...]
--- OUTSIDE RECORDS SUMMARY | 2024-03-07 22:01 | XMS_ITS | Encounter Summary ---
Author Organization [facility] Address [address] [place] [address] Care Team Providers Care Medical Claims Analyst Name Role Phone Unavailable Primary Care Provider Unavailabl e Encounter Details Date Type Department Care Team (Late st Contact Info) Description 03/21/2023 External Device Data STL ABSTRACTION Provider, Abstract [...]
--- OUTSIDE RECORDS SUMMARY | 2024-03-07 22:01 | XMS_ITS | Encounter Summary ---
Author Organization [facility] Address [address] [place] [address] Care Team Providers Care Primer Waterproofing Machine Adjuster Name Role Phone Unavailable Primary Care Provider Unavailabl e Reason for Visit * Reason Comments Abdominal Pain Pt ambulatory to ED with complaint of getting woken up this AM at 0600 with intermittent sharp lower left abdominal pain every 3-8 minutes. Last BM this AM and normal. Denies urinary issues, nausea, or emesis. * Auth/Cert (Routine) Specialty Diagnoses / Procedures Referred By Rosa espinosa Referred To Contact Emergency Medicine [facility] Emergency Dept [address] [place] [address] Referral ID Status Reason Start Date Expiration Date Visits Re quested Visits Authorized [id number] 1 1 Encounter Details Date Type Department Care Team (Late st Contact Info) Description 01/13/2022 1:09 PM MACHINE SHORTHAND REPORTER - 01/13/2022 3:38 PM [facility] Emergency [facility] Emergency Department [address] [place] [address] Pepito Mendoza MD [address] [place] [address] Musculoskeletal pain (Primary Dx); Prostate cancer Discharge Disposition: Home or Self [...] Coronavirus/COVID-19? No / Unsure 01/13/2022 11:41 AM MACHINE SHORTHAND REPORTER documented as of this encounter Last Filed Vital Signs Vital Sign Reading Time Taken Comments Blood Pressure 126/86 01/13/2022 3:00 PM MACHINE SHORTHAND REPORTER Pulse 62 01/13/2022 3:00 PM MACHINE SHORTHAND REPORTER Temperature 36.9 ??C (98.5 ??F) 01/13/2022 11:[address] Respiratory Rate 16 01/13/2022 3:00 PM MACHINE SHORTHAND REPORTER Oxygen Saturation 98% 01/13/2022 3:00 PM MACHINE SHORTHAND REPORTER Inhaled Oxygen Concentration - - Weight 83.9 kg (185 lb) 01/13/2022 11:41 AM MACHINE SHORTHAND REPORTER Height 172.7 cm (5' 8 ) 01/13/2022 11:41 AM MACHINE SHORTHAND REPORTER Body Mass Index 28.13 01/13/2022 11:41 AM MACHINE SHORTHAND REPORTER documented in this encounter Discharge Instructions * Attachments The following attachments cannot be sent through Care Everywhere. * Musculoskeletal Pain (Honduran) documented in this encounter Medications at Time of Discharge Medication Sig Dispensed Refills Start Date End Date ALPRAZolam (XANAX) 0.25 mg tablet Take 0.25 mg by mouth. 11/29/2021 HYDROcodone-acetaminophe n (NORCO) 5-325 mg tabletIndications:Prosta te cancer Take 1 Tablet by mouth every 6 hours as needed for Pain, Break-Through. Max Daily Amount: 4 Tablets 20 Tablet 01/13/2022 cyclobenzaprine (FLEXERIL) 10 mg tablet Take 1 Tablet (10 mg) by mouth 3 times daily as needed for Spasm. 20 Tablet 01/13/2022 apixaban (ELIQUIS) 5 mg tablet Take by mouth 2 times daily. rosuvastatin (CRESTOR) 10 mg tablet Take 10 mg by mouth daily. escitalopram oxalate (LEXAPRO) 5 mg tablet Take 5 mg by mouth daily. flecainide acetate (FLECAINIDE ORAL) Take 100 mg by mouth 2 times daily. documented as of this encounter ED Notes * Gagan Erickson RN - 01/13/2022 3:18 PM CST Patient/family has been informed about benefits and any potential clinically significant side effects or other concerns regarding the administration of the drug they have just been given. Discharge instructions reviewed with patient at this time. Patient verbalized understanding and allquestions answered. Patient has no further concerns or questions. INE SHORTHAND REPORTER * Myranda Carvalho RN - 01/13/2022 2:30 PM CST Pt complaining of pain, notified orders given. INE SHORTHAND REPORTER * Gagan Erickson RN - 01/13/2022 1:15 PM CST Patient is a 61-year-old male presents to [facility] emergency department via personal vehicle with complaints of intermittent sharp left lower quadrant abdominal pain that started this morning at 6 AM when he woke up. Patient is denying any urinary symptoms denies any nausea or vomiting. Patient deniesany fevers or diarrhea. Patient alert and oriented x4 vital signs are stable he does not appear in any acute distress. INE SHORTHAND REPORTER * Pepito Mendoza MD - 01/13/2022 11:39 AM CST HISTORY OF PRESENT ILLNESS Kenji Camara, a 61 y.o. male presents to the ED with a Chief Complaint of Abdominal Pain Subjective Documented Triage Chief Complaint: Abdominal Pain 1:15 PM: Kenji Camara is a 61 y.o. male with a history of HLD, Afib on Eliquis, who presents to the Emergency Department with complaints of suprapubic left abdominal pain. Patient reports pain began today at 6 AM in intervals of 7- 12 minutes. Pain is stabbing. Now, patient states pain returnsevery 1-2 minutes. Denies fever or chills. Physician(s): No primary care provider on file. History provided by: The patient Arrived by: Private vehicle REVIEW OF SYSTEMS Review of Systems Constitutional: Negative for chills and fever. HENT: Negative for congestion. Eyes: Negative for visual disturbance. Respiratory: Negative for cough. Cardiovascular: Negative for chest pain. Gastrointestinal: Positive for abdominal pain. Endocrine: Negative for polydipsia. Genitourinary: Negative for frequency. Musculoskeletal: Negative for back pain. Skin: Negative for rash. Allergic/Immunologic: Negative for immunocompromised state. Neurological: Negative for dizziness. Hematological: Does not bruise/bleed easily. Psychiatric/Behavioral: Negative for agitation and dysphoric mood. PAST MEDICAL HISTORY REVIEWED MEDICAL: Patient has a past medical history of Atrial fibrillation, Hyperlipidemia, and Malignant neoplasm of prostate. He has no past medical history of Chest pain, Deep vein thrombosis, Difficult intravenous access, Difficult intubation, Dyspnea, Dyspnea on exertion, Eye injury, History of complications due to general anesthesia, Injury of back, Injury of neck, Latex sensitivity, Malignant hyperthermia, Motion sickness, Obstructive sleep apnea, Post-operative nausea and vomiting, Pseudocholinesterase deficiency,or Temporomandibular joint disorder. SURGICAL: Patient has a past surgical history that includes shoulder surgery (Right); carpal tunnel release (Bilateral); hernia repair; and pr biopsy of prostate,needle/punch (N/A, 12/21/2021). FAMILY: Patient's family history is not on file. SOCIAL: reports that he has never smoked. He has never used smokeless tobacco. He reports that he does not currently use alcohol. He reports that he does not use drugs. No history on file. Social History Other Topics Concern Not on file ALLERGIES Patient has no known allergies. HOME MEDICATIONS Discharge Medication List as of 01/13/2022 3:14 PM START taking these medications Details cyclobenzaprine (FLEXERIL) 10 mg tablet Take 1 Tablet (10 mg) by mouth 3 times daily as needed for Spasm., Disp-20 Tablet, R-None CONTINUE these medications which have CHANGED Details HYDROcodone-acetaminophen (NORCO) 5-325 mg tablet Take 1 Tablet by mouth every 6 hours as needed for Pain, Break-Through. Max Daily Amount: 4 Tablets, Disp-20 Tablet, R-0 CONTINUE these medications which have NOT CHANGED Details ALPRAZolam (XANAX) 0.25 mg tablet Take 0.25 mg by mouth. apixaban (ELIQUIS) 5 mg tablet Take by mouth 2 times daily. rosuvastatin (CRESTOR) 10 mg tablet Take 10 mg by mouth daily. escitalopram oxalate (LEXAPRO) 5 mg tablet Take 5 mg by mouth daily. flecainide acetate (FLECAINIDE ORAL) Take 100 mg by mouth 2 times daily. Objective PHYSICAL EXAM INITIAL VS BP: (!) 142/83 (01/13/22 1141), Heart Rate: 72 bpm (01/13/22 1141), Resp: 14 (01/13/22 1141), Pulse: 72 (01/13/22 1141), Temp: 98.5 ??F (36.9 ??C) (01/13/22 1141), Temp src: Oral (01/13/22 114), SpO2: 99 % (01/13/22 114), Height: 5' 8 (172.7 cm) (01/13/22 114), Weight: 83.9 kg (185 lb) (01/13/22 114), BMI (Calculated): (!) 28.14 (01/13/22 114) No LMP for male patient. Physical Exam Vitals and nursing note reviewed. Constitutional: Comments: Middle-aged white male HENT: Head: Normocephalic. Eyes: Pupils: Pupils are equal, round, and reactive to light. Cardiovascular: Rate and Rhythm: Normal rate and regular rhythm. Heart sounds: Normal heart sounds. Pulmonary: Effort: Pulmonary effort is normal. Breath sounds: Normal breath sounds. Abdominal: Palpations: Abdomen is soft. Tenderness: There is abdominal tenderness in the left lower quadrant. Hernia: There is no hernia in the left inguinal area or right inguinal area. Musculoskeletal: General: Normal range of motion. Cervical back: Normal range of motion. Skin: General: Skin is warm. Neurological: Mental Status: He is alert and oriented to person, place, and time. DIAGNOSTICS LAB: COMPREHENSIVE METABOLIC PANEL - Abnormal Result Value SODIUM 137 POTASSIUM 4.6 CHLORIDE 106 CO2 20 (*) CALCIUM 9.5 BUN 16 CREATININE 0.83 GLUCOSE 93 TOTAL PROTEIN 7.2 ALBUMIN 4.4 BILIRUBIN TOTAL 0.5 ALKALINE PHOSPHATASE 61 AST 37 ALT 39 GFR >60 ANION GAP 11 URINALYSIS WITH REFLEX MICROSCOPIC - Normal COLOR UA Pale Yellow CLARITY UA Clear SPECIFIC GRAVITY UA 1.003 PH UA 6.0 LEUKOCYTE ESTERASE UA Negative NITRITE UA Negative PROTEIN UA Negative GLUCOSE UA Negative KETONES UA Negative UROBILINOGEN UA Normal BILIRUBIN UA Negative BLOOD UA Negative C-REACTIVE PROTEIN - Normal CRP <3.0 CBC WITH DIFFERENTIAL WBC 5.0 RBC 5.06 HEMOGLOBIN 15.3 HEMATOCRIT 46.0 MCV 90.9 MCH 30.2 MCHC 33.3 RDW 12.5 RDW-STDEV 41.1 PLATELETS 300 MPV 9.4 NEUTROPHILS 58 LYMPHOCYTES 30 MONOCYTES 10 EOSINOPHILS 2 BASOPHILS 1 IMMATURE GRANULOCYTES 0 NEUTROPHIL ABSOLUTE 2.90 LYMPHOCYTE ABSOLUTE 1.51 MONOCYTE ABSOLUTE 0.50 EOSINOPHIL ABSOLUTE 0.08 BASOPHILS ABSOLUTE 0.04 IMMATURE GRANULOCYTES ABSOLUTE 0.01 RADIOLOGY: CT ABDOMEN PELVIS WO CONTRAST Radiologist Impression IMPRESSION: 1. No acute pathology identified in the abdomen or pelvis. 2. Nonobstructive nephrolithiasis bilaterally. No hydronephrosis or hydroureter. 3. Colonic diverticulosis without evidence for acute diverticulitis. 4. Postoperative changes of prior left inguinal hernia repair. No evidence for hernia recurrence. 5. Mild prostatomegaly. DICTATION LOCATION: Location [address] [place] [address] EKG: PROCEDURES Procedures MEDICAL DECISION MAKING AND PLAN OF CARE --upon initial evaluation, patient was seen and examined by me. Discussed with patient plan to obtain labs and CT abdomen pelvis wo contrast for further evaluation. Will give IV bolus. Patient is agreeable with this plan. ED provider and ED nurse verbally discussed patient plan of care at this time. 3:13 PM: Updated pt on their CT results. Follow up and return precautions discussed. Patient understands and agrees with the plan. All questions and concerns addressed. The patient is stable for discharge. ED provider and ED nurse verbally discussed patient plan of care at this time. MDM Summary Statement: 61 year old male with history of kidney stones presents to the Emergency Department with sudden, sharp, episodic left lower quadrant pain. CT shows no acute abdominal process. It did show nonobstructive kidney stones. Patient had normal WBC and CRP. Suspicious for musculoskeletal pain. Plan to discharge with Flexeril and hydrocodone for breakthrough pain and instructions to follow up with PCP. I have reviewed previous: notes I have reviewed current: labs and imaging I have reviewed nursing notes related to past medical history, social history, and review of systems and agree, unless otherwise noted. Medications Administered During the ED Stay from 01/13/2022 1140 to 01/13/2022 1945 Date/Time Order Dose Route Action 01/13/2022 1513 MACHINE SHORTHAND REPORTER sodium chloride 0.9% bolus solution 500 mL 0 mL IV Stopped 01/13/2022 1328 MACHINE SHORTHAND REPORTER sodium chloride 0.9% bolus solution 500 mL 500 mL IV New Bag 01/13/2022 1445 MACHINE SHORTHAND REPORTER morphine 4 mg/mL injection 4 mg 4 mg IV Admin by Another Clinician (Comment) 01/13/2022 1515 MACHINE SHORTHAND REPORTER diazePAM (VALIUM) tablet 10 mg 10 mg Oral Given Discharge Medication List as of 01/13/2022 3:14 PM START taking these medications Details cyclobenzaprine (FLEXERIL) 10 mg tablet Take 1 Tablet (10 mg) by mouth 3 times daily as needed for Spasm., Disp-20 Tablet, R-None CONTINUE these medications which have CHANGED Details HYDROcodone-acetaminophen (NORCO) 5-325 mg tablet Take 1 Tablet by mouth every 6 hours as needed for Pain, Break-Through. Max Daily Amount: 4 Tablets, Disp-20 Tablet, R-0 CONTINUE these medications which have NOT CHANGED Details ALPRAZolam (XANAX) 0.25 mg tablet Take 0.25 mg by mouth. apixaban (ELIQUIS) 5 mg tablet Take by mouth 2 times daily. rosuvastatin (CRESTOR) 10 mg tablet Take 10 mg by mouth daily. escitalopram oxalate (LEXAPRO) 5 mg tablet Take 5 mg by mouth daily. flecainide acetate (FLECAINIDE ORAL) Take 100 mg by mouth 2 times daily. LAST VS BP: 126/86 (01/13/22 1500), Heart Rate: 72 bpm (01/13/22 1141), Resp: 16 (01/13/22 1500), Pulse: 62(01/13/22 1500), Temp: 98.5 ??F (36.9 ??C) (01/13/22 1141), Temp src: Oral (01/13/22 1141), SpO2: 98 % (01/13/22 1500) CLINICAL IMPRESSION Final diagnoses: [M79.18] Musculoskeletal pain (Primary) DISPOSITION, EDUCATION AND MEDICATION RECONCILIATION Medications reconciled. See after visit summary for patient education on discharged patients. ED Disposition ED Disposition Discharge Condition Stable User Pepito Mendoza MD Date/Time Sun Jan 13, 2022 3:12 PM Comment -- ATTESTATION STATEMENTS This note has been prepared by Nicole Stringer acting as a scribe for Dr. Pepito Mendoza on 01/13/2022 at 1:14 PM. The scribe's documentation has been prepared under my direction and personally reviewed by me, Dr. Mendoza , in its entirety on 01/13/22 at 7:45 PM. I confirm that the note above accurately reflects all work, treatment, procedures, and medical decision making performed by me. INE SHORTHAND REPORTER documented in this encounter Plan of Treatment Not on file documented as of this encounter Procedures Procedure Name Priority Date/Time Associated Diagnosis Comments CT ABDOMEN PELVIS WO CONTRAST Stat 01/13/2022 2:46 PM MACHINE SHORTHAND REPORTER URINALYSIS W/REFLEX MICROSCOPIC Stat 01/13/2022 2:22 PM MACHINE SHORTHAND REPORTER CBC WITH DIFFERENTIAL Stat 01/13/2022 1:27 PM MACHINE SHORTHAND REPORTER C-REACTIVE PROTEIN Stat 01/13/2022 12 :08 PM MACHINE SHORTHAND REPORTER COMPREHENSIVE METABOLIC PANEL Stat 01/13/2022 12:08 PM MACHINE SHORTHAND REPORTER documented in this encounter Results * CT ABDOMEN PELVIS WO CONTRAST (01/13/2022 2:46 PM MACHINE SHORTHAND REPORTER) Anatomical Region Laterality Modality Abdomen Computed Tomogra phy 01/13/2022 2:46 PM MACHINE SHORTHAND REPORTER Impressions 01/13/2022 3:00 PM MACHINE SHORTHAND REPORTER IMPRESSION: 1. No acute pathology identified in the abdomen or pelvis. ?? 2. Nonobstructive nephrolithiasis bilaterally. No hydronephrosis or hydroureter. 3. Colonic diverticulosis without evidence for acute diverticulitis. ?? 4. Postoperative changes of prior left inguinal hernia repair. No evidence for hernia recurrence. 5. Mild prostatomegaly. DICTATION LOCATION: Location [address] [place] [address] Narrative 01/13/2022 3:00 PM MACHINE SHORTHAND REPORTER EXAMINATION: CT ABDOMEN PELVIS WO CONTRAST ?? DATE: 01/13/2022 2:46 PM HISTORY: LLQ abdominal pain See Reason for Exam TECHNIQUE: Computed tomography of the abdomen and pelvis was performed without contrast according to standard protocol. The examination was performed with the adjustment of mA according to the patient size and/or the use of Iterative Reconstruction Technique. ?? FINDINGS: No prior study is available for comparison at the time of this dictation. Evaluation of visceral and vascular structures is limited without intravenous contrast. LUNG BASES: Within normal limits ?? LIVER: Within normal limits. BILE DUCTS: Nondilated. GALLBLADDER: Within normal limits. ?? SPLEEN: Within normal limits. ?? PANCREAS: No focal pancreatic lesion or peripancreatic inflammation. ADRENALS: Within normal limits. ?? KIDNEYS/URETERS: Nonobstructive nephrolithiasis bilaterally with calculi measuring below 5 mm. No hydronephrosis or hydroureter. No concerning renal lesion identified. BOWEL: Colonic diverticulosis without evidence for acute diverticulitis. No bowel wall thickening or obstruction. Normal right lower quadrant appendix. ?? PERITONEUM/RETROPERITONEUM: No ascites, free air, or enlarged mesenteric/retroperitoneal lymph nodes. PELVIC ORGANS: Prostatomegaly. Urinary bladder is unremarkable. No gallbladder wall thickening or intraluminal calculi. No size significant pelvic lymphadenopathy or free pelvic fluid. VESSELS: Abdominal aorta is mildly atherosclerotic but normal in caliber. ABDOMINAL WALL: Small fat-containing umbilical hernia identified. There are postoperative changes of prior left inguinal hernia repair. No recurrent left inguinal hernia identified. BONES: No suspicious lytic or blastic lesions. INCIDENTAL FINDINGS: ??None. Procedure Note Kg Cao, DO - 01/13/2022 EXAMINATION: CT ABDOMEN PELVIS WO CONTRAST DATE: 01/13/2022 2:46 PM HISTORY: LLQ abdominal pain See Reason for Exam TECHNIQUE: Computed tomography of the abdomen and pelvis was performed without contrast according to standard protocol. The examination was performed with the adjustment of mA according to the patient size and/or the use of Iterative Reconstruction Technique. FINDINGS: No prior study is available for comparison at the time of this dictation. Evaluation of visceral and vascular structures is limited without intravenous contrast. LUNG BASES: Within normal limits LIVER: Within normal limits. BILE DUCTS: Nondilated. GALLBLADDER: Within normal limits. SPLEEN: Within normal limits. PANCREAS: No focal pancreatic lesion or peripancreatic inflammation. ADRENALS: Within normal limits. KIDNEYS/URETERS: Nonobstructive nephrolithiasis bilaterally with calculi measuring below 5 mm. No hydronephrosis or hydroureter. No concerning renal lesion identified. BOWEL: Colonic diverticulosis without evidence for acute diverticulitis. No bowel wall thickening or obstruction. Normal right lower quadrant appendix. PERITONEUM/RETROPERITONEUM: No ascites, free air, or enlarged mesenteric/retroperitoneal lymph nodes. PELVIC ORGANS: Prostatomegaly. Urinary bladder is unremarkable. No gallbladder wall thickening or intraluminal calculi. No size significant pelvic lymphadenopathy or free pelvic fluid. VESSELS: Abdominal aorta is mildly atherosclerotic but normal in caliber. ABDOMINAL WALL: Small fat-containing umbilical hernia identified. There are postoperative changes of prior left inguinal hernia repair. No recurrent left inguinal hernia identified. BONES: No suspicious lytic or blastic lesions. INCIDENTAL FINDINGS: None. IMPRESSION: 1. No acute pathology identified in the abdomen or pelvis. 2. Nonobstructive nephrolithiasis bilaterally. No hydronephrosis or hydroureter. 3. Colonic diverticulosis without evidence for acute diverticulitis. 4. Postoperative changes of prior left inguinal hernia repair. No evidence for hernia recurrence. 5. Mild prostatomegaly. DICTATION LOCATION: Location [address] [place] [address] ORDERABLES * URINALYSIS WITH REFLEX MICROSCOPIC (01/13/2022 2:22 PM MACHINE SHORTHAND REPORTER) COLOR UA Pale Yellow Pale to Dark Yellow 01/13/2022 2:41 PM MACHINE SHORTHAND REPORTER [facility] - . [facility] CLARITY UA Clear Clear 01/13/2022 2:41 PM MACHINE SHORTHAND REPORTER [facility] - . [facility] SPECIFIC GRAVITY UA 1.003 1.003 - 1.035 01/13/2022 2:41 PM MACHINE SHORTHAND REPORTER [facility] - . [facility] PH UA 6.0 5.0 - 8.0 01/13/2022 2:41 PM MACHINE SHORTHAND REPORTER [facility] - [facility] LEUKOCYTE ESTERASE UA Negative Negative 01/13/2022 2:41 PM MACHINE SHORTHAND REPORTER [facility] NITRITE UA Negative Negative 01/13/2022 2:41 PM MACHINE SHORTHAND REPORTER [facility] PROTEIN UA Negative Negative 01/13/2022 2:41 PM MACHINE SHORTHAND REPORTER [facility] GLUCOSE UA Negative Negative 01/13/2022 2:41 PM MACHINE SHORTHAND REPORTER [facility] - [facility] KETONES UA Negative Negative 01/13/2022 2:41 PM MACHINE SHORTHAND REPORTER [facility] UROBILINOGEN UA Normal <2.0 mg/dL 2:41 PM MACHINE SHORTHAND REPORTER [facility] - [facility] BILIRUBIN UA Negative Negative 01/13/2022 2:41 PM MACHINE SHORTHAND REPORTER [facility] - [facility] BLOOD UA Negative Negative 01/13/2022 2:41 PM MACHINE SHORTHAND REPORTER [facility] Urine URINE SPECIMEN OBTAINED BY CLEAN CATCH PROCEDURE / Unknown Collection / Unknown 01/13/2022 2:22 PM MACHINE SHORTHAND REPORTER 01/13/2022 2:29 PM MACHINE SHORTHAND REPORTER Protocol [facility] Emergency MD URINE ORDERA BLES [facility] - [facility] CLIA# [id number] [address] [place] [address] * CBC WITH DIFFERENTIAL (01/13/2022 1:27 PM MACHINE SHORTHAND REPORTER) WBC 5.0 4.0 - 9.8 K/uL 01/13/2022 1:52 PM MACHINE SHORTHAND REPORTER [facility] - [facility] RBC 5.06 4.50 - 5.40 M/uL 01/13/2022 1:52 PM MACHINE SHORTHAND REPORTER [facility] - [facility] HEMOGLOBIN 15.3 13.6 - 16.5 g/dL 01/13/2022 1:52 PM MACHINE SHORTHAND REPORTER [facility] - [facility] HEMATOCRIT 46.0 40.0 - 48.0 % 01/13/2022 1:52 PM MACHINE SHORTHAND REPORTER [facility] - [facility] MCV 90.9 82.0 - 99.0 fL 01/13/2022 1:52 PM MACHINE SHORTHAND REPORTER [facility] - [facility] MCH 30.2 27.2 - 32.6 pg 01/13/2022 1:52 PM MACHINE SHORTHAND REPORTER [facility] - [facility] MCHC 33.3 31.5 - 35.5 g/dL 01/13/2022 1:52 PM MACHINE SHORTHAND REPORTER [facility] - [facility] RDW 12.5 11.5 - 14.5 % 01/13/2022 1:52 PM MACHINE SHORTHAND REPORTER [facility] - [facility] RDW-STDEV 41.1 37.1 - 48.7 fL 01/13/2022 1:52 PM MACHINE SHORTHAND REPORTER [facility] - [facility] PLATELETS 300 140 - 350 K/uL 01/13/2022 1:52 PM [facility] MPV 9.4 9.3 - 12.4 fL 01/13/2022 1:52 PM [facility] NEUTROPHILS 58 % 01/13/2022 1:52 PM [facility] LYMPHOCYTES 30 % 01/13/2022 1:52 PM MACHINE SHORTHAND REPORTER [facility] MONOCYTES 10 % 01/13/2022 1:52 PM MACHINE SHORTHAND REPORTER [facility] EOSINOPHILS 2 % 01/13/2022 1:52 PM MACHINE SHORTHAND REPORTER [facility] [employer] [facility] - [facility] BASOPHILS 1 % 01/13/2022 1:52 PM MACHINE SHORTHAND REPORTER [facility] - [facility] IMMATURE GRANULOCYTES 0 % 01/13/2022 1:52 PM [facility] NEUTROPHIL ABSOLUTE 2.90 1.90 - 7.00 K/uL 01/13/2022 1:52 PM MACHINE SHORTHAND REPORTER [facility] LYMPHOCYTE ABSOLUTE 1.51 0.70 - 4.50 K/uL 01/13/2022 1:52 PM MACHINE SHORTHAND REPORTER [facility] MONOCYTE ABSOLUTE 0.50 0.10 - 1.30 K/uL 01/13/2022 1:52 PM MACHINE SHORTHAND REPORTER [facility] EOSINOPHIL ABSOLUTE 0.08 0.00 - 0.70 K/uL 01/13/2022 1:52 PM [facility] - [facility] BASOPHILS ABSOLUTE 0.04 0.00 - 0.20 K/uL 01/13/2022 1:52 PM MACHINE SHORTHAND REPORTER [facility] LABORATORY SERVICES - [facility] IMMATURE GRANULOCYTES ABSOLUTE 0.01 0.00 - 0.03 K/uL 01/13/2022 1:52 PM [facility] [employer] LABORATORY SERVICES - [facility] Blood Venipuncture / Unknown 01/13/2022 1:27 PM MACHINE SHORTHAND REPORTER 01/13/2022 1:36 PM MACHINE SHORTHAND REPORTER Protocol [facility] Emergency MD HEMATOLOGY O RDERABLES [facility] LABOR[facility]ORY SERVICES - [facility] CLIA# [id number] [address] [place] [address] * C-REACTIVE PROTEIN (01/13/2022 12:08 PM MACHINE SHORTHAND REPORTER) Pathologist [facility] CRP <3.0 <5.0 mg/L 01/13/2022 1:49 PM [facility] [employer] LABORATORY SERVICES [facility] Blood Venipuncture / Unknown 01/13/2022 12:08 PM MACHINE SHORTHAND REPORTER 01/13/2022 12:12 PM MACHINE SHORTHAND REPORTER Pepito Mendoza MD CHEMISTRY ORDERABLES [employer] [facility] CLIA# [id number] [address] [place] [place] [address] * (ABNORMAL) COMPREHENSIVE METABOLIC PANEL (01/13/2022 12:08 PM MACHINE SHORTHAND REPORTER) Pathologist [facility] SODIUM 137 136 - 145 mmol/L 01/13/2022 12:45 PM [facility] [employer] LABORATORY SERVICES - [facility] [place] POTASSIUM 4.6 3.5 - 5.0 mmol/L 01/13/2022 12:45 PM [facility] [employer] LABORATORY SERVICES - [facility] CHLORIDE 106 98 - 107 mmol/L 01/13/2022 12:45 PM [facility] [employer] [facility]ATORY [facility] - [facility] CO2 20(L) 22 - 29 mmol/L 01/13/2022 12:45 PM [facility] [employer] [facility]ORY SERVICES - [facility] CALCIUM 9.5 8.6 - 10.2 mg/dL 01/13/2022 12:45 PM MACHINE SHORTHAND REPORTER [employer] [facility] - [facility] BUN 16 8 - 23 mg/dL 01/13/2022 12:45 PM MACHINE SHORTHAND REPORTER [employer] - [facility] CREATININE 0.83 0.67 - 1.17 mg/dL 01/13/2022 12:45 PM MACHINE SHORTHAND REPORTER [facility] - [facility] GLUCOSE 93 74 - 99 mg/dL 01/13/2022 12:45 PM [facility] [employer] [facility]ORY SERVICES - [facility] TOTAL PROTEIN 7.2 6.7 - 8.6 g/dL 01/13/2022 12:45 PM MACHINE SHORTHAND REPORTER [employer] [facility] - [facility] ALBUMIN 4.4 3.5 - 5.2 g/dL 01/13/2022 12:45 PM [facility] BILIRUBIN TOTAL 0.5 0.2 - 1.1 mg/dL 01/13/2022 12:45 PM [facility] ALKALINE PHOSPHATASE 61 40 - 129 U/L 01/13/2022 12:45 PM [facility] AST 37 <41 U/L 01/13/2022 12:45 PM [facility] Comment:Hemolysis present. R esult may be falsely elevated. ALT 39 <42 U/L 01/13/2022 12:45 PM [facility] GFR >60 >=60 mL/min/1.7 3 sq meter 01/13/2022 12:45 PM [facility] Comment:eGFR calculated with 2020 CKD-EPI equation. Vegetarian diet, extremely high or low muscle mass, and may affect results. Cystatin C with Glomerular Filtration Rate is a suitable alternative for these patients. ANION GAP 11 8 - 16 mmol/L 01/13/2022 12:45 PM [facility] Blood Venipuncture / Unknown 01/13/2022 12:08 PM MACHINE SHORTHAND REPORTER 01/13/2022 12:12 PM MACHINE SHORTHAND REPORTER Narrative [facility] - 01/13/2022 12:45 PM MACHINE SHORTHAND REPORTER Samples containing indocyanine green cause interferences on Total and/or Direct Bilirubin and must not be measured. Protocol [facility] Emergency MD CHEMISTRY OR DERABLES [facility]# [id number] [address] [facility] [address] [address] documented in this encounter Visit Diagnoses Diagnosis Musculoskeletal pain- Primary Mylagia and myositis, unspecified Prostate cancer Malignant neoplasm of prostate documented in this encounter Administered Medications Inactive Administered Medications - up to 3 most recent administrations Medication Order MAR Action Action Date Dose Rate Site diazePAM (VALIUM) tablet 10 mg 10 mg, Oral, ONE TIME ONLY, 1 dose, On 01/13/22 at 1515, Routine Given 01/13/2022 3:15 PM MACHINE SHORTHAND REPORTER 10 mg morphine 4 mg/mL injection 4 mg 4 mg, IV, ONE TIME ONLY, 1 dose, On 01/13/22 at 1445, Routine Admin by Another Clinician (Comment) 01/13/2022 2:45 PM MACHINE SHORTHAND REPORTER 4 mg sodium chloride 0.9% bolus solution 500 mL 500 mL, IV, ONE TIME ONLY, 1 dose, On 01/13/22 at 1315, at 999 mL/hr, Administer over 30 Minutes, Routine New Bag 01/13/2022 1:28 PM MACHINE SHORTHAND REPORTER 500 mL 999 mL/hr documented in this encounter Active and Recently Administered Medications Times are shown in MACHINE SHORTHAND REPORTER. Scheduled Medication Order 01/11/2022 01/12/2022 01/13/2022 diazePAM (VALIUM) tablet 10 mg (COMPLETED) 10 mg, Oral, ONE TIME ONLY, 1 dose, On 01/13/22 at 1515, Routine 1515 (Given - Provid er: Gagan Erickson RN) morphine 4 mg/mL injection 4 mg (COMPLETED) 4 mg, IV, ONE TIME ONLY, 1 dose, On 01/13/22 at 1445, Routine 1445 (Admin by [facility] (Comment) - Provider: Myranda Carvalho RN) sodium chloride 0.9% bolus solution 500 mL (COMPLETED) 500 mL, IV, ONE TIME ONLY, 1 dose, On 01/13/22 at 1315, at 999 mL/hr, Administer over 30 Minutes, Routine 1328 (New Bag - Prov ider: Gagan Erickson RN)1513 (Stopped - Provider: Gagan Erickson RN) documented in this encounter
--- OUTSIDE RECORDS SUMMARY | 2024-03-07 22:01 | XMS_ITS | Encounter Summary ---
Author Organization [facility] Address [address] [place] [address] Care Team Providers Care Diesel Roller Operator Name Role Phone Unavailable Primary Care Provider Unavailabl e Reason for Visit * Reason Onset Date Comments Surgery 10/23/2021 Encounter Details Date Type Department Care Team (Late st Contact Info) Description 10/23/2021 Telephone [facility] - [place] [address] [facility] [address] [place] [address] Galo Villareal MD [address] [place] [address] Surgery Social History Tobacco Use Types Packs/Day Years [...] * Telephone Encounter - Marsha Hartman - 10/26/2021 10:03 AM CDT Spoke with pt, procedure scheduled * Telephone Encounter - Marsha Hartman - 10/23/2021 10:05 AM CDT Called pt to schedule prostate biopsy in OR with Dr. Villareal, no answer, left message documented in this encounter Plan of Treatment Not on file documented as of this encounter Visit Diagnoses Not on filedocumented in this encounter
--- OUTSIDE RECORDS SUMMARY | 2024-03-07 22:01 | XMS_ITS | Encounter Summary ---
Author Organization [facility] Address [address] [place] [address] Care Team Providers Care Home Performance Consultant Name Role Phone Unavailable Primary Care Provider Unavailabl e Encounter Details Date Type Department Care Team (Latest Contact Info) Description 04/23/2005 Outpatient Historical HIS [facility] Samaniego, Isaac Castellanos MD [address] [place], [place] [id number] SCREENING FOR COND NEC (Primary Dx) Social History Tobacco Use Types Packs/Day Years Used Date Smoking Tobacco: Never Assessed Sex and Gender Information Value Date Recorded Sex Assigned at Not on file Gender Identity Not on file Sexual Orientation Not on file documented as of this encounter Plan of Treatment Not on file documented as of this encounter Visit Diagnoses Diagnosis Screening for other and unspecified genitourinary condition- Primary documented in this encounter
--- OUTSIDE RECORDS SUMMARY | 2024-03-07 22:01 | XMS_ITS | Clinical Summary ---
Author Organization [facility] Address [address] [place] [address] Phone Care Team Providers Care Jig Filler Name Role Phone Unavailable Primary Care Provider Unavailabl e Allergies No known active allergies Medications Medication Sig Dispensed Refills Start Date End Date Status flecainide acetate (FLECAINIDE ORAL) Take 100 mg by mouth 2 times daily. Active apixaban (ELIQUIS) 5 mg tablet Take by mouth 2 times daily. Active rosuvastatin (CRESTOR) 10 mg tablet Take 10 mg by mouth daily. Active escitalopram oxalate (LEXAPRO) 5 mg tablet Take 5 mg by mouth daily. Active ALPRAZolam (XANAX) 0.25 mg tablet Take 0.25 mg by mouth. 11/29/2021 Active HYDROcodone-acetamino phen (NORCO) 5-325 mg tabletIndications:Pro state cancer Take 1 Tablet by mouth every 6 hours as needed for Pain, Break-Through. Max Daily Amount: 4 Tablets 20 Tablet 01/13/2022 Active cyclobenzaprine (FLEXERIL) 10 mg tablet Take 1 Tablet (10 mg) by mouth 3 times daily as needed for Spasm. 20 Tablet 01/13/2022 Active Active Problems Problem Noted Date Diagnosed Date Prostate cancer 10/22/2021 Encounters Date Type Department Care Team Description 12/09/2023 External Device Data [facility] ABSTRACTION Provider, Abstract from Last 3 Months Social History Tobacco Use Types Packs/Day Years [...] Pressure 128/76 08/15/2022 9:25 AM CDT Pulse 62 01/13/2022 3:00 PM PIPE FINISHER Temperature 36.9 ??C (98.5 ??F) 01/13/2022 11:[address] Respiratory Rate 16 01/13/2022 3:00 PM PIPE FINISHER Oxygen Saturation 98% 01/13/2022 3:00 PM PIPE FINISHER Inhaled Oxygen Concentration - - Weight 83.9 kg (185 lb) 08/15/2022 9:25 AM CDT Height 172.7 cm (5' 8 ) 08/15/2022 9:25 AM CDT Body Mass Index 28.13 08/15/2022 9:25 AM CDT Plan of Treatment Health Maintenance Due Date Last Done Comments DTAP/TDAP/TD VACCINES (1 - Tdap) 1977 COLORECTAL SCREENING 11/28/2003 Colorectal Cancer Screening 11/28/2003 FIT-DNA Q 3 years 11/28/2003 FIT/FOBT Q 1 year 11/28/2003 Flex Sig/CT Colonography Q 5 years 11/28/2003 ZOSTER VACCINE (1 of 2) 2008 INFLUENZA VACCINE (#1) 2023 PNEUMOCOCCAL VACCINE 65+ YEARS (1 of 1 - PCV) 11/28/19 24 RSV VACCINE (60+ or ) (1 - 1-dose 75+ series) 2033 Medical Devices Implanted Type Area Life Science Technician Device Identifier Shelf Expiration Date Model / Serial / Lot Cardiac Event Monitor Advance Directives For more information, please contact: [phone] * Full Code (Latest Code Status on File) Date Activated Date Inactivated Comments 12/21/2021 9:54 AM 12/21/2021 1:51 PM * Full Code Date Activated Date Inactivated Comments 12/21/2021 8:15 AM 12/21/2021 9:53 AM
== END 2024-03-01 18:02 | disposition short-term general hospital (02) ==
PROVIDERS: Emergency Provider Student in an Organized Health Care Education/Training Program
DX: H33.21 Serous retinal detachment, right eye (principal); H43.391 Other vitreous opacities, right eye
CPT/HCPCS: 70450; 99283